=== PATIENT | male | born 1945 | race Caucasian/White ===

== ENCOUNTER 2024-09-12 09:18 | Outpatient (OUT) | payer MEDICARE, SELFPAY ==
--- NOTE | 2024-09-12 09:30 | CA_ITS ---
[facility] Test Date: 2024-09-12 Pat Name: CAROL MCPHERSON Department: Room: - Gender: Male Hand Former Helper: Clarissa Manzo : 1945 Requested By: PJ US Order Number: [id number] Reading MD: ABRIL GORDON M.D. Interpretive Statements Summary of the findings: Right leg: DANA= 1.26; TBI= 0.84. Doppler waveforms demonstrate biphasic flow at the posterior tibial and dorsalis pedis arteries. Left leg: DANA= 1.22; TBI= 0.65. Doppler waveforms demonstrate biphasic flow at the posterior tibial and dorsalis pedis arteries. Segmental pressures: Segmental pressures show calcified non-compressible left femoropopliteal artery. No other segmental disease. Pulse volume recordings: PVRs at the high thigh, below knee, and ankle levels show normal waveforms. Conclusion: Right and left ankle-brachial indices are suggestive of normal overall arterial flow at rest. Toe-brachial indices are suggestive of left sided PAD. Segmental pressures show calcified non-compressible left femoropopliteal artery. Pulse volume recordings indicate good overall resting arterial flow. The study shows evidence of PAD with normal overall arterial flow at rest. Electronically Signed On 09-12-2024 20:54:04 EDT by ABRIL GORDON M.D.
== END 2024-09-12 09:19 | disposition home or self-care (01) ==
PROVIDERS: Visit Provider Internal Medicine Interventional Cardiology
DX: I73.9 Peripheral vascular disease, unspecified (principal); I25.10 Atherosclerotic heart disease of native coronary artery without angina pectoris; I65.23 Occlusion and stenosis of bilateral carotid arteries
CPT/HCPCS: 93880; 93923

== ENCOUNTER 2024-10-05 12:10 | Outpatient (OUT) | payer MEDICARE, SELFPAY ==
--- OUTSIDE RECORDS SUMMARY | 2023-11-24 06:30 | XMS_ITS | Encounter Summary ---
Author Name [facility] Organization [facility] [place] Address [address] [place] [address] Care Team Providers Care Sign Board Erector Name Role Phone DIANNE GRIFFINCA Primary Care Provider Unavailabl e Insurance Providers: All historical and current Section Date Range: From patient's date of to the date document was created. This section includes the names of all active insurance providers for the patient. Insurance Provider Type of Coverage Plan Name Start of Policy Coverage End of Policy Coverage Group Number Member ID Insurance Provider's Telephone Number Policy Plunkett's Name Patient's Relationship to Policy Plunkett [employer] MEDIGAP PLAN N PLAN N Oct 16, 2012 MEDIGAP [id number] Fabian MCPHERSON PATIENT AARP MED SUPP MEDICARE SUPPLESELECT MEDICAL [facility] PLANN Feb 15, 2022 PLANN [id number] Fabian MCPHERSON PATIENT AARP MED SUPP MEDIGAP PLAN N PLAN N Oct 16, 2012 PLAN N [id number] Fabian MCPHERSON PATIENT MEDICARE (WNR) MEDICARE (M) PART A May 16, 2005 PART A [id number] Fabian MCPHERSONS PATIENT MEDICARE (WNR) MEDICARE (M) PART B May 16, 2005 PART B [id number] Fabian MCPHERSON PATIENT MEDICARE (WNR) MEDICARE (M) PART A May 16, 2005 PART A [id number] Fabian MCPHERSON PATIENT MEDICARE (WNR) MEDICARE (M) PART B May 16, 2005 PART B [id number] Fabian MCPHERSON PATIENT MEDICARE (WNR) MEDICARE (M) PART B May 16, 2005 PART B [id number] Fabian MCPHERSON PATIENT MEDICARE (WNR) MEDICARE (M) PART A May 16, 2005 PART A [id number] [phone] Fabian MCPHERSON PATIENT MEDICARE PART D (WNR) PRESCRIPT ION PART D Feb 15, 2010 PART D [id number] Fabian MCPHERSON PATIENT Selected Encounter This section includes the information on record at [place] for the Encounter. Date/Time Encounter Type Encounter Description Reason Provider Source Nov 24, 2023 10:30 AM OFFICE O/P EST MOD 30 MIN DERMATOLOGY ICD-10-CM Z12.83 Encounter for screening for malignant neoplasm of skin DOMINIC DENNIS Encounter Template Text not used by [place] Assessments - Encounter Diagnoses This section includes the primary and secondary diagnoses documented for the Encounter. Date/Time Primary/Secondary Diagnosis Diagnosis Name Provider Source Dec 15, 2023 09:46 AM PRIMARY Encounter for screening for malignant neoplasm of skin MIRYAM DUMONT [facility] Dec 15, 2023 09:46 AM SECONDARY Actinic keratosis [facility] Dec 15, 2023 09:46 AM SECONDARY Other melanin hyperpigmentation [facility] Dec 15, 2023 09:46 AM SECONDARY Other seborrheic keratosis [facility] Plan of Treatment: Future Appointments (+ 6 months) and Future Tests (+/- 45 days) The Plan of Treatment section includes future care activities for the patient from all [place] [facility]. This section includes future appointments and future orders which are active, pending or scheduled. Future Appointments This section includes appointments that were scheduled to occur 6 months from the date of the Encounter, up to a maximum of 20 appointments. The data comes from all [place] treatment facilities. Appointment Date/Time Appointment Type Appointme nt Facility Name Dec 07, 2023 11:00 AM AMBULATORY - PSYCHIATRY [facility] Dec 14, 2023 11:30 AM AMBULATORY - NONE [facility] Dec 14, 2023 01:30 PM AMBULATORY - SURGERY [facility] Dec 14, 2023 02:30 PM AMBULATORY - [facility]ATRY [facility] Dec 14, 2023 03:00 PM AMBULATORY - SURGERY [facility] Feb 01, 2024 11:00 AM AMBULATORY - PSYCHIATRY CL [facility] Mar 21, 2024 11:00 AM AMBULATORY - SURGERY [facility] Mar 21, 2024 11:30 AM AMBULATORY - PS[facility]CHIATRY [facility] Apr 04, 2024 01:15 PM AMBULATORY - NONE [facility] Apr 06, 2024 11:45 AM AMBULATORY - MEDICINE [facility] Apr 18, 2024 11:30 AM AMBULATORY - PSYCHIATRY [facility] Apr 25, 2024 01:00 PM AMBULATORY - NONE [facility] Social History: Smoking Status (Most current) and Tobacco Use (All prior to encounter date) This section includes the most current, and the historical, smoking and tobacco- related health factors from the [place] facility where the Encounter took place. Current Smoking Status This section includes the most current smoking, or tobacco-related health factor, from the [place] facility where the Encounter took place. Date/Time Current Smoking Status Comment Facil ity Sep 06, 2017 09:21 AM SMOKING CESSATION NO [facility] Tobacco Use History This section includes a history of the smoking, or tobacco-related health factors, that were collected on or before the date of the Encounter. The data comes from the [place] facility where the Encounter took place. Date/Time Smoking Status/Tobacco Use Comment F acility Jun 12, 2015 01:08 PM TOBACCO CURRENT USER 1/2 pack a day [facility] Apr 24, 2013 09:26 AM CURRENT TOBACCO USER [facility] Advance Directives: All historical and current Section Date Range: From patient's date of to the date document was created. This section includes ALL of a patient's completed or amended [place] Advance and Rescinded Directives. The entries below indicate that a directive exists for the patient, but an actual copy is not included with this document. The data comes from all [place] facilities. Date Advance Directives Provider Source May 03, 2019 ADVANCE DIRECTIVE DISCUSSION DEN DE LUNA [facility] Dec 28, 2012 ADVANCE DIRECTIVE CRISTI RAE [facility] Dec 28, 2012 ADVANCE DIRECTIVE DISCUSSION KYRAVIDAL MACKENZIE [facility] Dec 28, 2012 RESCINDED ADVANCE DIRECTIVE KYRADONALD MACKENZIE [facility] June 18, 2009 ADVANCE DIRECTIVE DISCUSSION FERNY PASTRANA [facility] Encounter Notes: All associated encounter notes This section contains the clinical notes associated to the Encounter. Date/Time Encounter Note(s) Provider Source Nov 24, 2023 11:17 AM NURSING NOTE: LOCAL TITLE: NURSING NOTE STANDARD TITLE: NURSING NOTE DATE OF NOTE: NOV 24, 2023@11:17 ENTRY DATE: NOV 24, 2023@11:17:58 AUTHOR: BREE YOUNG EXP COSIGNER: URGENCY: STATUS: COMPLETED Clinical Reminders Activity Suicide Screen: C-SSRS Screening [place] Suicide Severity Rating Scale (C-SSRS) screener 1. Over the past month, have you wished you were or wished you could go to sleep and not wake up? No 2. Over the past month, have you had any actual thoughts of killing yourself? No 3. Over the past month, have you been thinking about how you might do this? Response not required due to responses to other questions. 4. Over the past month, have you had these thoughts and had some intention of acting on them? Response not required due to responses to other questions. 5. Over the past month, have you started to work out or worked out the details of how to kill yourself? Response not required due to responses to other questions. 6. If yes, at any time in the past month did you intend to carry out this plan? Response not required due to responses to other questions. 7. In your lifetime, have you ever done anything, started to do anything, or prepared to do anything to end your life (for example, collected pills, obtained a gun, gave away valuables, went to the roof but didn't jump)? No 8. If YES, was this within the past 3 months? Response not required due to responses to other questions. /nayan/ BREE YOUNG REGISTERED NURSE Signed: 11/24/2023 11:18 BREE YOUNG [facility] Nov 24, 2023 10:41 AM DERMATOLOGY NOTE: LOCAL TITLE: DERMATOLOGY CLINIC NOTE STANDARD TITLE: DERMATOLOGY NOTE DATE OF NOTE: NOV 24, 2023@10:41 ENTRY DATE: NOV 24, 2023@10:41:22 AUTHOR: REYES DUMONT SA EXP COSIGNER: DOMINIC DENNIS URGENCY: STATUS: COMPLETED [facility] Note CC: Skin check LCV: 06/2023 HPI: 78 yo male presents for TBSEs. Hx of AKs, SKs, and warts. Denies any significant sunburns in the past, he usually tans. Has one lesion on the frontal scalp he noticed ~6 weeks ago and it is scaly; no lesions with bleeding, pruritis, growth, pain or secretions. REVIEW OF SYSTEMS: Denies fever/chills/night sweats Denies unintentional weight loss Denies SOB, chest pain Denies N/V, diarrhea/constipation/abd pain DERM HISTORY: He denies any personal hx or family of skin cancer. Past Medical History: Reviewed in CPRS. Medications: Reviewed in CPRS. Allergies: Reviewed in CPRS. FH: Reviewed in CPRS. SH: Reviewed in CPRS. His 04/2022 from [facility]. LABS: Reviewed in CPRS OBJECTIVE: GENERAL: A&O x3, NAD, pleasant and cooperative SKIN: A focused waist up skin exam was performed. The scalp, face, lips, eyelids, ears, neck, chest, back, trunk, b/l UE were examined and pertinent findings are as follows. Pt declines LE exam as nothing to note: - On the right frontal scalp is a 5mm gritty erythematous papule - On the trunk are multiple red uniformly pigmented papules c/w hemangiomas - On the trunk and upper extremities are numerous [id number] brown stuck- on greasy appearing sharply demarcated papules and plaques c/w seborrheic keratoses - On the trunk/arms are numerous brown uniformly pigmented macules c/w lentigos ASSESSMENT/PLAN: # Actinic keratosis x 1 on right frontal scalp - Counseled patient on precancerous nature of lesion and relationship to sun exposure - Counseled on the importance of sun protection, including daily sunscreen use and the use of photo-protective clothing including hats. - Will treat with LN2 today Cryotherapy note: Patient gave verbal consent after review of risks (blister/scar/infection/fur ther treatment), benefits and alternatives - Liquid nitrogen: for each application, 1 cycle, 10 sec - Locations: as above - Tolerated procedure well, no complications # TBSE otherwise significant for benign appearing nevi, seborrheic keratoses, lenitigines, skin tags, angiomas, and well-healed scar at sites of prior procedure - Reassured patient of benign nature of lesions - Counseled on the importance of sun protection, including daily sunscreen use and the use of photo-protective clothing including hats. - Reviewed the ABCDEs of skin lesions and signs of non-melanoma skin cancer such as rapid growth, bleeding, pain, or ulceration. Handout provided RTC 1-2 years for FBSE Reyes Dumont MD PGY2, Department of Dermatology Attending Physician, Dr. Dennis was available for consultation. /nayan/ REYES DUMONT RESIDENT Signed: 11/24/2023 10:56 /nayan/ DOMINIC DENNIS STRATEGY CONSULTANT Cosigned: 11/24/2023 12:11 REYES DUMONT [facility]
--- OUTSIDE RECORDS SUMMARY | 2023-12-07 07:00 | XMS_ITS | Encounter Summary ---
Author Name [facility] [place] [facility] [place] Address [address] [place] [address] Care Team Providers Care Biostatistics Director Name Role Phone LAURA GRIFFIN Primary Care Provider Unavailabl e Insurance Providers: [...] N PLAN N Oct 16, 2012 MEDIGAP [id number] Fabian MCPHERSON PATIENT [facility]ARP [facility] Feb 15, 2022 PLANN [id number] Fabian MCPHERSON PATIENT AARP MED SUPP MEDIGAP PLAN N PLAN N Oct 16, 2012 PLAN N [id number] Fabian MCPHERSON PATIENT MEDICARE (WNR) MEDICARE (M) PART A May 16, 2005 PART A [id number] Fabian MCPHERSONS PATIENT MEDICARE (WNR) MEDICARE (M) PART B May 16, 2005 PART B [id number] [phone] Fabian MCPHERSON PATIENT MEDICARE (WNR) MEDICARE (M) PART A May 16, 2005 PART A [id number] Fabian MCPHERSON PATIENT MEDICARE (WNR) MEDICARE (M) PART B May 16, 2005 PART B [id number] Fabian MCPHERSON PATIENT MEDICARE (WNR) MEDICARE (M) PART A May 16, 2005 PART A [id number] [phone] Fabian MCPHERSON PATIENT MEDICARE (WNR) MEDICARE (M) PART B May 16, 2005 PART B [id number] Fabian MCPHERSON PATIENT MEDICARE PART D (WNR) PRESCRIPT ION PART D Feb 15, 2010 PART D [id number] 75A Fabian MCPHERSON PATIENT Selected Encounter This section includes the information on record at [place] for the Encounter. Date/Time Encounter Type Encounter Description Reason Provider Source Dec 07, 2023 11:00 AM PSYTX W PT 30 MINUTES [facility] - IND ICD-10-CM F32.A Depression, unspecified AUDREY XIONG Encounter Template Text not used by [place] Assessments - Encounter Diagnoses This section includes the primary and secondary diagnoses documented for the Encounter. Date/Time Primary/Secondary Diagnosis Diagnosis Name Provider Source Dec 07, 2023 03:55 PM PRIMARY Depression, unspecified AUDREY XIONG [facility] Dec 07, 2023 03:55 PM SECONDARY Post-traumatic stress disorder, unspecified AUDREY XIONG [facility] Plan of Treatment: Future Appointments (+ 6 months) and Future Tests (+/- 45 days) The Plan of Treatment section includes future care activities for the patient from [facility] [place] [facility]. This section includes future appointments and future orders which are active, pending or scheduled. Future Appointments This section includes appointments that were scheduled to occur 6 months from the date of the Encounter, up to a maximum of 20 appointments. The data comes from all [place] treatment facilities. Appointment Date/Time Appointment Type Appointme nt Facility Name Dec 14, 2023 11:30 AM AMBULATORY - NONE [facility]ADI[facility] Peres [facility] Dec 14, 2023 01:30 PM AMBULATORY - SURGERY [facility] Dec 14, 2023 02:30 PM AMBULATORY - PSYCHIATRY [facility] Dec 14, 2023 03:00 PM AMBULATORY - SURGERY CAR[facility] AMARO [facility] Feb 01, 2024 11:00 AM AMBULATORY - PSYCHIATRY [facility] Mar 21, 2024 11:00 AM AMBULATORY - SURGERY [facility] Mar 21, 2024 11:30 AM AMBULATORY - PSYCHIATRY [facility] Apr 04, 2024 01:15 PM AMBULATORY - NONE [facility] Apr 06, 2024 11:45 AM AMBULATORY - MEDICINE CLEChapin BELTRAN [facility] Apr 18, 2024 11:30 AM AMBULATORY - PSYCHIATRY [facility] Apr 25, 2024 01:00 PM AMBULATORY - NONE [facility] Jun 02, 2024 11:00 AM AMBULATORY - PSYCHIATRY [facility] Jun 02, 2024 11:30 AM AMBULATORY - NONE [facility] Jun 02, 2024 11:45 AM AMBULATORY - NONE [facility] Social History: Smoking Status (Most current) and Tobacco Use (All prior to encounter date) This section includes the most current, and the historical, smoking and tobacco- related health factors from the [place] facility where the Encounter took place. Current Smoking Status This section includes the most current smoking, or tobacco-related health factor, from the [place] facility where the Encounter took place. Date/Time Current Smoking Status Comment Waqas ulloa Jun 14, 2023 11:00 AM VA-TOBACCO USER EVERY DAY [facility] Tobacco Use History This section includes a history of the smoking, or tobacco-related health factors, that were collected on or before the date of the Encounter. The data comes from the [place] facility where the Encounter took place. Date/Time Smoking Status/Tobacco Use Comment F acility Jun 14, 2023 11:00 AM VA-TOBACCO USE 30 YEARS OR MORE [facility] Jun 14, 2023 11:00 AM VA-TOBACCO USE ADVICE [facility] Jun 14, 2023 11:00 AM VA-TOBACCO USE DOCK OPERATIONS SUPERVISOR NO [facility] Jun 14, 2023 11:00 AM VA-TOBACCO USE MED NO [facility] Jun 14, 2023 11:00 AM VA-TOBACCO USER EVERY DAY [facility] May 01, 2022 11:00 AM VA-TOBACCO DOESNT USE WI 30 MIN WAKEUP [facility] May 01, 2022 11:00 AM VA-TOBACCO USE 30 YEARS OR MORE [facility] May 01, 2022 11:00 AM VA-TOBACCO USE ADVICE [facility] May 01, 2022 11:00 AM VA-TOBACCO USE DOCK OPERATIONS SUPERVISOR NO [facility] May 01, 2022 11:00 AM VA-TOBACCO USE MED NO [facility] May 01, 2022 11:00 AM VA-TOBACCO USER EVERY DAY [facility] May 09, 2021 02:30 PM VA-TOBACCO DOESNT USE WI 30 MIN WAKEUP [facility] May 09, 2021 02:30 PM VA-TOBACCO USE 30 YEARS OR MORE [facility] May 09, 2021 02:30 PM VA-TOBACCO USE ADVICE [facility] May 09, 2021 02:30 PM VA-TOBACCO USE DOCK OPERATIONS SUPERVISOR YES [facility] May 09, 2021 02:30 PM VA-TOBACCO USE MED NO [facility] May 09, 2021 02:30 PM VA-TOBACCO USER EVERY DAY [facility] Apr 02, 2020 09:00 AM VA-TOBACCO DOESNT USE WI 30 MIN WAKEUP [facility] Apr 02, 2020 09:00 AM VA-TOBACCO USE 30 YEARS OR MORE [facility] Apr 02, 2020 09:00 AM VA-TOBACCO USE ADVICE [facility] Apr 02, 2020 09:00 AM VA-TOBACCO USE DOCK OPERATIONS SUPERVISOR NO [facility] Apr 02, 2020 09:00 AM VA-TOBACCO USE MED NO [facility] Apr 02, 2020 09:00 AM VA-TOBACCO USER EVERY DAY [facility] Sep 14, 2018 10:16 AM VA-TOBACCO DOESNT USE WI 30 MIN WAKEUP [facility] Sep 14, 2018 10:16 AM VA-TOBACCO USE 30 YEARS OR MORE [facility] Sep 14, 2018 10:16 AM VA-TOBACCO USE ADVICE [facility] Sep 14, 2018 10:16 AM VA-TOBACCO USE DOCK OPERATIONS SUPERVISOR NO [facility] Sep 14, 2018 10:16 AM VA-TOBACCO USE MED NOTIFY PROVID ER [facility] Sep 14, 2018 10:16 AM VA-TOBACCO USER EVERY DAY [facility] Sep 10, 2017 03:41 PM VA-TOBACCO DOESNT USE WI 30 MIN WAKEUP [facility] Sep 10, 2017 03:41 PM VA-TOBACCO USE 30 YEARS OR MORE [facility] Sep 10, 2017 03:41 PM VA-TOBACCO USE ADVICE [facility] Sep 10, 2017 03:41 PM VA-TOBACCO USE DOCK OPERATIONS SUPERVISOR YES [facility] Sep 10, 2017 03:41 PM VA-TOBACCO USE MED NOTIFY PROVID ER [facility] Sep 10, 2017 03:41 PM VA-TOBACCO USER EVERY DAY [facility] Sep 06, 2017 09:21 AM CURRENT TOBACCO USER [facility] Sep 06, 2017 09:21 AM SMOKING CESSATION NO [facility] Sep 06, 2017 09:21 AM TOBACCO OFFERRED P T MEDS (PROVIDER) [facility] Sep 06, 2017 09:21 AM TOBACCO OFFERRED S [facility] Aug 12, 2016 10:34 AM CURRENT TOBACCO USER [facility] Jul 23, 2015 08:53 AM CURRENT TOBACCO USER [facility] Mar 27, 2014 01:28 PM CURRENT TOBACCO USER [facility] May 05, 2012 09:42 AM CURRENT TOBACCO USER [facility] Apr 23, 2011 11:03 AM CURRENT TOBACCO USER [facility] Apr 23, 2011 11:03 AM SMOKING MEDICATION INTERES T Annie MEDINA [facility] Mar 31, 2010 09:16 AM CURRENT TOBACCO USER [facility] Mar 31, 2010 09:16 AM SMOKING MEDICATION INTERES T Dr Óscar MEDINA [facility] Jun 10, 2009 02:07 PM CURRENT TOBACCO USER [facility] Jun 10, 2009 02:07 PM SMOKING MEDICATION INTERES T Dr. Prince [facility] Aug 07, 2008 09:36 AM CURRENT TOBACCO USER [facility] May 18, 2008 02:38 PM CURRENT TOBACCO USER [facility] May 18, 2008 02:38 PM TOBACCO OFFERRED P T MEDS (PROVIDER) [facility] May 18, 2008 02:38 PM TOBACCO OFFERRED S [facility] Advance Directives: All historical and current Section Date Range: From patient's date of to the date document was created. This section includes ALL of a patient's completed or amended [place] Advance and Rescinded Directives. The entries below indicate that a directive exists for the patient, but an actual copy is not included with this document. The data comes from all [place] facilities. Date Advance Directives Provider Source May 03, 2019 ADVANCE DIRECTIVE DISCUSSION DEN DE LUNA [facility] Dec 28, 2012 ADVANCE DIRECTIVE CRISTI RAE [facility] Dec 28, 2012 ADVANCE DIRECTIVE DISCUSSION KYRABRIONNAChadwick CHELSEY Varghese [facility] Dec 28, 2012 RESCINDED ADVANCE DIRECTIVE DONALD RAE WONG [place] June 18, 2009 ADVANCE DIRECTIVE DISCUSSION FERNY PASTRANA JIMMY Morro [facility] Encounter Notes: All associated encounter notes This section contains the clinical notes associated to the Encounter. Date/Time Encounter Note(s) Provider Source Dec 07, 2023 08:49 AM MENTAL HEALTH COUN SELING NOTE: LOCAL TITLE: PSYCHIATRY PSYCHOTHERAPY INDIVIDUAL NOTE (T) STANDARD TITLE: MENTAL HEALTH COUNSELING NOTE DATE OF NOTE: DEC 07, 2023@08:49 ENTRY DATE: DEC 07, 2023@08:49:44 AUTHOR: SONI XIONG COSIGNER: URGENCY: STATUS: COMPLETED Video to Home Appointment: Telehealth Disclosure: Visit conducted by synchronous telehealth. Patient verbal consent obtained. Location/emergency number confirmed. Environment surveyed and all participants identified. Virtual conference room locked. ADDITIONAL INFORMATION: E911: For emergencies, provider may initiate the call to machine stemmer by calling E911 Center [phone] [address] Veterans/ Crisis Line - Dial 988, press #1 [employer] Help Desk ([facility]): [phone] or [phone] Session Time and Duration: 11:01-11:17am DIAGNOSIS: MDD, PTSD Date Treatment Plan is due: 03/01/24 Treatment Plan Goal: I want to decrease depression and improve mood. PROGRESS TOWARDS GOAL: improving TYPES OF THERAPY: Individual METHOD OF THERAPY: supportive THE REPORTED THAT he is feeling okay, I can't complain. He acknowledged his mood improving and he is getting out and doing things. He will be going with his daughter to [place] for [employer] [place]. He stated he also watched daughter's new rescue that she has to return due it not doing well with other dogs. He denied any issues or concerns he sought to discuss. Upon assessment, he denied any current suicidal or homicidal ideation or plans. INTERVENTIONS: active and reflective listening 'S PARTICIPATION: Actively participated in discussion, Has a better understanding of therapeutic issues PLAN/HOMEWORK: depression and PTSD symptoms remains stable. No follow-up with this provider warranted. Is aware of how to schedule with this provider again if needed. MENTAL STATUS EXAM: ORIENTATION AND CONSCIOUSNESS: Alert and attentive APPEARANCE AND BEHAVIOR: Cooperative and reasonable, Grooming appropriate SPEECH: Normal rate/rhythm LANGUAGE: Intact MOOD AND AFFECT: Mood appeared euthymic, Affect is reactive PERCEPTUAL DISTURBANCE (Hallucinations, Illusions): None THOUGHT PROCESS AND ASSOCIATION: coherent, organized THOUGHT CONTENT (delusions, Obsessions, etc): No unusual thought content SUICIDAL OR VIOLENT IDEATION: None, denied MEMORY: Intact [facility] is aware to contact the clinic or the [facility] Crisis Line with concerns prior to the next scheduled visit. Clinical Reminders Activity Homelessness/Food Insecurity Screen: In the past 2 months, have you been living in stable housing that you own, rent, or stay in as part of a household? Yes - Living in stable housing. Are you worried or concerned that in the next 2 months you may NOT have stable housing that you own, rent, or stay in as part of a household? No - Not worried about housing near future [facility] reports the following: Within the past 12 months, you worried whether your food would run out before you got money to buy more. Never true Within the past 12 months, the food you bought just didn't last and you didn't have money to get more. Never true /es/ SONI XIONG CLINICAL PSYCHOLOGIST Signed: 12/07/2023 16:07 SONI XIONG [facility]
--- OUTSIDE RECORDS SUMMARY | 2023-12-14 07:30 | XMS_ITS | Encounter Summary ---
Author Name [facility] Organization [facility] Address [address] [place] [id number] Care Team Providers Care Quality Control Checker Name Role Phone LAURA GRIFFIN Primary Care [...] N PLAN N Oct 16, 2012 MEDIGAP [id number] [phone] Fabian MCPHERSON PATIENT AARP MED [facility] Feb 15, 2022 PLANN [id number] Fabian MCPHERSON PATIENT AARP MED SUPP MEDIGAP PLAN N PLAN N Oct 16, 2012 PLAN N [id number] [phone] Fabian MCPHERSON PATIENT MEDICARE (WNR) MEDICARE (M) PART A May 16, 2005 PART A [id number] Fabian MCPHERSONS PATIENT MEDICARE (WNR) MEDICARE (M) PART B May 16, 2005 PART B [id number] [phone] Fabian MCPHERSONS PATIENT MEDICARE (WNR) MEDICARE (M) PART A May 16, 2005 PART A [id number] [place] PATIENT MEDICARE (WNR) MEDICARE (M) PART B May 16, 2005 PART B [id number] [phone] Fabian MCPHERSON PATIENT MEDICARE (WNR) MEDICARE (M) PART A May 16, 2005 PART A [id number] [phone] Fabian MCPHERSON PATIENT MEDICARE (WNR) MEDICARE (M) PART B May 16, 2005 PART B [id number] [phone] Fabian MCPHERSON PATIENT MEDICARE PART D (WNR) PRESCRIPT ION PART D Feb 15, 2010 PART D [id number] [phone] Fabian MCPHERSON PATIENT Selected Encounter This section includes the information on record at [place] for the Encounter. Date/Time Encounter Type Encounter Description Reason Provider Source Dec 14, 2023 11:30 AM OFFICE O/P EST MOD 30 MIN PRIMARY CARE/MEDICINE ICD-10-CM N40.1 Benign prostatic hyperplasia with lower urinary tract symp LAURA GRIFFIN [place] Encounter Template Text not used by [facility] Assessments - Encounter Diagnoses This section includes the primary and secondary diagnoses documented for the Encounter. Date/Time Primary/Secondary Diagnosis Diagnosis Name Provider Source Dec 14, 2023 01:15 PM PRIMARY Benign prostatic hyperplasia with lower urinary tract symp LAURA GRIFFIN [facility] Dec 14, 2023 01:15 PM SECONDARY Chronic ischemic heart disease, unspecified LAURA GRIFFIN [facility] Dec 14, 2023 01:15 PM SECONDARY Encounter for immunization KRISTIE VALENTINE [facility] Dec 14, 2023 01:15 PM SECONDARY Essential (primary) hypertension LAURA GRIFFIN [facility] Dec 14, 2023 01:15 PM SECONDARY Hyperlipidemia, unspecified LAURA GRIFFIN [facility] Dec 14, 2023 01:15 PM SECONDARY Other obstructive and reflux uropathy LAURA GRIFFIN [facility] Dec 14, 2023 01:15 PM SECONDARY Tobacco use LAURA GRIFFIN [facility] Dec 14, 2023 01:15 PM SECONDARY Type 2 diabetes mellitus without complications LAURA GRIFFIN [facility] Plan of Treatment: Future Appointments (+ 6 months) and Future Tests (+/- 45 days) The Plan of Treatment section includes future care activities for the patient from all VA treatmentfacilities. This section includes future appointments and future orders which are active, pending or scheduled. Future Appointments This section includes appointments that were scheduled to occur 6 months from the date of the Encounter, up to a maximum of 20 appointments. The data comes from all [place] treatment [facility]. Appointment Date/Time Appointment Type Appointme nt Facility Name Feb 01, 2024 11:00 AM AMBULATORY - PSYCHIATRY [facility] Mar 21, 2024 11:00 AM AMBULATORY - SURGERY [facility] Mar 21, 2024 11:30 AM AMBULATORY - PSYCHIATRY [facility] Apr 04, 2024 01:15 PM AMBULATORY - NONE [facility] Apr 06, 2024 11:45 AM AMBULATORY - MEDICINE [facility] Apr 18, 2024 11:30 AM AMBULATORY - PSYCHIATRY [facility] Apr 25, 2024 01:00 PM AMBULATORY - NONE [facility] Jun 02, 2024 11:00 AM AMBULATORY - PSYCHIATRY [facility] Jun 02, 2024 11:30 AM AMBULATORY - NONE [facility] Jun 02, 2024 11:45 AM AMBULATORY - NONE [facility] Immunizations: All administered on the encounter date This section contains immunizations associated to the Encounter. Immunization Series Date Issued Administered By Site Reaction Lot Number [id number] Code Drug Upper And Bottom Lacer Hand Comment(s) Source COVID-19 (PFIZER), MRNA, LNP-S, PF, LES-SUCROSE, 30 MCG/0.3 ML (AGES 12+ YEARS) Dec 14, 20[address] [id number] [employer] [facility] [place] Social History: Smoking Status (Most current) and Tobacco Use (All prior to encounter date) This section includes the most current, and the historical, smoking and tobacco- related health factors from the [place] facility where the Encounter took place. Current Smoking Status This section includes the most current smoking, or tobacco-related health factor, from the [place] facility where the Encounter took place. Date/Time Current Smoking Status Comment Waqas ulloa Jun 14, 2023 11:00 AM VA-TOBACCO USER EVERY DAY [facility] Tobacco Use History This section includes a history of the smoking, or tobacco-related health factors, that were collected on or before the date of the Encounter. The data comes from the [place] facility where the Encounter took place. Date/Time Smoking Status/Tobacco Use Comment F acility Jun 14, 2023 11:00 AM VA-TOBACCO USE 30 YEARS OR MORE [facility] Jun 14, 2023 11:00 AM VA-TOBACCO USE ADVICE [facility] Jun 14, 2023 11:00 AM VA-TOBACCO USE UNIFORM CAP OPERATOR NO [facility] Jun 14, 2023 11:00 [...] May 01, 2022 11:00 AM VA-TOBACCO USE UNIFORM CAP OPERATOR NO [facility] May 01, 2022 11:00 [...] May 09, 2021 02:30 PM VA-TOBACCO USE UNIFORM CAP OPERATOR YES [facility] May 09, 2021 02:30 [...] Apr 02, 2020 09:00 AM VA-TOBACCO USE UNIFORM CAP OPERATOR NO [facility] Apr 02, 2020 09:00 AM VA-TOBACCO USE MED NO [facility] Apr 02, 2020 09:00 AM VA-TOBACCO USER EVERY DAY [facility] Sep 14, 2018 10:16 AM VA-TOBACCO DOESNT USE WI 30 MIN WAKEUP [facility] Sep 14, 2018 10:16 AM VA-TOBACCO USE 30 YEARS OR MORE [facility] Sep 14, 2018 10:16 AM VA-TOBACCO USE ADVICE [facility] Sep 14, 2018 10:16 AM VA-TOBACCO USE UNIFORM CAP OPERATOR NO [facility] Sep 14, 2018 10:16 AM VA-TOBACCO USE MED NOTIFY [facility] Sep 14, 2018 10:16 AM VA-TOBACCO USER EVERY DAY [facility] Sep 10, 2017 03:41 PM VA-TOBACCO DOESNT USE WI 30 MIN WAKEUP [facility] Sep 10, 2017 03:41 PM VA-TOBACCO USE 30 YEARS OR MORE [facility] Sep 10, 2017 03:41 PM VA-TOBACCO USE ADVICE [facility] Sep 10, 2017 03:41 PM VA-TOBACCO USE UNIFORM CAP OPERATOR YES [facility] Sep 10, 2017 03:41 PM VA-TOBACCO USE MED NOTIFY STAR ER [facility] Sep 10, 2017 03:41 PM VA-TOBACCO USER EVERY DAY [facility] Sep 06, 2017 09:21 AM CURRENT TOBACCO USER [facility] Sep 06, 2017 09:21 AM SMOKING CESSATION NO [facility] Sep 06, 2017 09:21 AM TOBACCO OFFERRED P T MEDS (PROVIDER) [facility] Sep 06, 2017 09:21 AM TOBACCO OFFERRED S [facility] Aug 12, 2016 10:34 AM CURRENT TOBACCO USER [facility] Jul 23, 2015 08:53 AM CURRENT TOBACCO USER [facility] Mar 27, 2014 01:28 PM CURRENT TOBACCO USER [facility] May 05, 2012 09:42 AM CURRENT TOBACCO USER [facility] Apr 23, 2011 11:03 AM CURRENT TOBACCO USER [facility] Apr 23, 2011 11:03 AM SMOKING MEDICATION INTERES T Annie [facility] Mar 31, 2010 09:16 AM CURRENT TOBACCO USER [facility] Mar 31, 2010 09:16 AM SMOKING MEDICATION INTERES T Dr Óscar [facility] Jun 10, 2009 02:07 PM CURRENT TOBACCO USER [facility] Jun 10, 2009 02:07 PM SMOKING MEDICATION INTERES T Dr. Prince [facility] Aug 07, 2008 09:36 AM CURRENT TOBACCO USER [facility] May 18, 2008 02:38 PM CURRENT TOBACCO USER [facility] May 18, 2008 02:38 PM TOBACCO OFFERRED P T MEDS (PROVIDER) [facility] May 18, 2008 02:38 PM TOBACCO OFFERRED S [facility] Advance Directives: All historical and current Section Date Range: From patient's date of to the date document was created. This section includes ALL of a patient's completed or amended VA Advance and Rescinded Directives. The entries below indicate that a directive exists for the patient, but an actual copy is not included with this document. The data comes from all [place] facilities. Date Advance Directives Provider Source May 03, 2019 ADVANCE DIRECTIVE DISCUSSION DEN DE LUNA [facility] Dec 28, 2012 ADVANCE DIRECTIVE CRISTI RAE [facility] Dec 28, 2012 ADVANCE DIRECTIVE DISCUSSION VIDAL RAE [facility] Dec 28, 2012 RESCINDED ADVANCE DIRECTIVE DONALD RAE [facility] June 18, 2009 ADVANCE DIRECTIVE DISCUSSION FERNY PASTRANA [facility] Encounter Notes: All associated encounter notes This section contains the clinical notes associated to the Encounter. Date/Time Encounter Note(s) Provider Source Dec 14, 2023 11:40 AM INTERNAL MEDICINE OUTPATIENT NOTE: LOCAL TITLE: PRIMARY CARE OUTPATIENT NOTE (T) STANDARD TITLE: INTERNAL MEDICINE OUTPATIENT NOTE DATE OF NOTE: DEC 14, 2023@11:40 ENTRY DATE: DEC 14, 2023@11:40:42 AUTHOR: LAURA GRIFFIN EXP COSIGNER: URGENCY: STATUS: COMPLETED PRIMARY CARE OUTPATIENT NOTE (T) Has ADDENDA In-person Note 78yo [place] Reason for Visit: Here for follow up visit. COmplains of a tender area in left arm and leg, will hurt when he touches it, doesn't bother him otherwise 24 Active Problems PROBLEM LAST MOD PROVIDER Benign prostatic hypertrophy with outflow 08/01/2021 LAURA GRIFFIN obstruction Difficulty cutting own toenails 12/11/2020 SARABJIT LOUISE Vitamin D deficiency 10/30/2020 LAURA GRIFFIN Abnormal findings on diagnostic imaging of lung 08/01/[address] 04/2020.Repeat in 07/2020-->findings stable. Repeat 07/2021 Pulmonary asbestosis 05/01/2020 RADIGAN,PATRICI Thoracic aorta abnormality 05/01/2020 RADIGAN,PATRICI 04/2020 Ectasia of ascending thoracic aorta. Size = 3.9 cm. Chronic insomnia 09/26/2019 ADRIAN BARBOZA Obstructive sleep apnea of adult 05/24/2019 ADRIAN BARBOZA Hypokalemia 09/14/2018 SMILEY LAMAR Diabetic neuropathy 10/11/2017 SARABJIT LOUISE Diabetes mellitus 07/23/2015 SMILEY LAMAR Depressive disorder 11/12/2022 LAURA GRIFFIN Personal History of Noncompliance with Medical 10/31/2012 SMILEY LAMAR Treatment, Presenting Hazards to Health Sensorineural Hearing Loss, Bilateral (ICD-9-CM 06/24/2011 CELSA SAMSON 389.18) Ld Teacher (current) use of Anticoagulants 02/05/2011 CHICHI ROSARIO (ICD-9-CM V58.61) Paroxysmal atrial fibrillation, Onset 01/01/2015 SMILEY LAMAR Occurred with AMI July 2010. [facility] rhythm at [facility] f[facility] Generalized Anxiety Disorder * (ICD-9-CM 300.02) 06/05/2008 BLAINE ALTMAN Coronary Artery Disease 12/05/2014 CHRISTINA TORRES 1. CABG x 3 vessels 1999 2. Stent to left main 2004 ([facility]) 3. Stent to posterior descending L in 2010 ([facility] FORREST) HTN 07/23/2015 SMILEY LAMAR Dyslipidemia 07/23/2015 SMILEY LAMAR PTSD 03/16/2019 SMILEY LAMAR Depression 05/22/2008 ANNIE DELGADO Transient Ischemic Attack 05/22/2008 ANNIE DELGADO Tobacco use (SNOMED CT [id number]) 03/16/2019 SMILEY LAMAR REVIEW OF SYSTEMS: (denies the following unless indicated otherwise): mood concerns headache fatigue/weight loss dysphagia/hoarseness chest pain dyspnea abdominal pain difficult or bloody elimination PATIENT ALLERGIES DETAILED ALLERGIES/ADVERSE REACTIONS Type: OTHER Date/Time Reactant Severity Reaction 05/18/2008 14:35 VICRYL SUTURES UNKNOWN AMRS - MEDS (REC SUCCINCT) Active and Recently Inpatient, Outpatient and Clinic Medications (including Supplies): Active Outpatient Medications Status ========= 1) AMITRIPTYLINE HCL 25MG TAB TAKE ONE TO TWO TABLET(S) ACTIVE BY MOUTH AT BEDTIME NEEDED FOR SLEEP 2) AMLODIPINE BESYLATE 5MG TAB TAKE ONE TABLET BY MOUTH ACTIVE EVERY DAY 3) APIXABAN 5MG TAB TAKE ONE TABLET BY MOUTH TWICE A DAY ACTIVE DIRECTED BY [facility] ([phone] EXT. [id number]) 4) ASPIRIN 81MG EC TAB TAKE ONE TABLET BY MOUTH EVERY ACTIVE DAY (WITH FOOD) 5) ISOSORBIDE MONONITRATE 120MG SA TAB TAKE ONE TABLET ACTIVE (S) BY MOUTH TWICE A DAY 6) LISINOPRIL 5MG TAB TAKE ONE TABLET BY MOUTH EVERY DAY ACTIVE 7) METFORMIN HCL 500MG TAB TAKE ONE TABLET BY MOUTH ACTIVE EVERY DAY FOR TYPE 2 DIABETES MELLITUS (AVOID ALCOHOL) 8) METOPROLOL TARTRATE 25MG TAB TAKE ONE TABLET BY MOUTH ACTIVE TWICE A DAY 9) MIRTAZAPINE 15MG TAB TAKE ONE TABLET BY MOUTH AT ACTIVE BEDTIME 10) NITROGLYCERIN 0.4MG SL TAB DISSOLVE ONE TABLET UNDER ACTIVE THE TONGUE NEEDED FOR ACUTE ATTACK OF ANGINA FOR CHEST PAIN; IF CHEST PAIN IS NOT IMPROVED 5 MINUTES AFTER TAKING 1 TABLET, CALL 911 DISPENSE IN ORIGINAL CONTAINER 11) PANTOPRAZOLE NA 20MG EC TAB TAKE ONE TABLET BY MOUTH ACTIVE EVERY MORNING, ON AN EMPTY STOMACH 12) ROSUVASTATIN CA 40MG TAB TAKE ONE TABLET BY MOUTH ACTIVE EVERY DAY FOR CHOLESTEROL 13) SERTRALINE HCL 50MG TAB TAKE ONE TABLET BY MOUTH ACTIVE DAILY FOR MAJOR DEPRESSIVE DISORDER 14) TAMSULOSIN HCL 0.4MG CAP TAKE ONE CAPSULE BY MOUTH AT ACTIVE BEDTIME 15) VARENICLINE 1MG TAB TAKE ONE TABLET BY MOUTH TWICE A ACTIVE DAY FOR SMOKING CESSATION START AFTER (WHITE) 0.5MG TABLETS ARE DONE Inactive Outpatient Medications Status ========= 1) RANOLAZINE 500MG SA TAB TAKE ONE TABLET BY MOUTH EVERY 12 HOURS FOR RAPID VENTRICULAR HEARTBEAT Active Non-VA Medications Status ========= 1) Non-VA DIPHENHYDRAMINE HCL 50MG CAP 50MG MOUTH AT ACTIVE BEDTIME 2) Non-VA FOLIC ACID 1MG TAB 1MG MOUTH EVERY DAY ACTIVE 3) Non-VA MELATONIN CAP/TAB ONE CAP/TAB MOUTH AT BEDTIME ACTIVE 4) Non-VA MULTIVITAMIN CAP/TAB 1 TAB/CAP MOUTH EVERY DAY ACTIVE 20 Total Medications Report Released Date/Time: Sep 09, 2023@18:01 Provider: LAURA GRIFFIN Specimen: BLOOD. [facility] [id number] Specimen Collection Date: Sep 09, 2023@13:30 Test name Result units Ref. range Site Code WBC COUNT 6.5 K/cmm 3.6 - 11.0 [541] RBC COUNT 4.93 M/cmm 4.47 - 5.83 [541] HGB 12.0 L g/dL 13.6 - 17.4 [541] HCT 36.5 L % 40.0 - 51.0 [541] MCV 73.9 L fL 80.0 - 96.0 [541] MCH 24.3 L pg 27.0 - 31.0 [541] MCHC 32.9 g/dL 31.5 - 36.5 [541] RDW 19.2 H % 11.2 - 15.8 [541] PLT 150 K/cmm 150 - 400 [541] MPV 10.5 fL 7.4 - 11.4 [541] NEUTROPHIL % 68.2 % 54.0 - 78.0 [541] LYMPHS % 17.5 L % 21.0 - 51.0 [541] MONOCYTES % 11.6 H % 4.0 - 8.0 [541] EOSINOPHIL % 2.2 % 0.0 - 3.0 [541] BASOPHIL % 0.5 % 0.0 - 3.0 [541] ABSOLUTE NEUTROPHIL COUNT 4.4 K/cmm 1.9 - 8.6 [541] ABSOLUTE LYMPHOCYTE COUNT 1.1 K/cmm 0.8 - 5.0 [541] ABSOLUTE MONOCYTE COUNT 0.8 K/cmm 0.1 - 0.9 [541] ABSOLUTE EOSINOPHIL COUNT 0.1 K/cmm 0.0 - 0.3 [541] ABSOLUTE BASOPHIL COUNT 0.0 K/cmm 0.0 - 0.3 [541] NUCLEATED RBC/100WBC 0.0 /100 WBC None Established - None Established [541] Report Released Date/Time: Sep 09, 2023@19:06 Provider: LAURA GRIFFIN Specimen: PLASMA. [facility] [id number] Specimen Collection Date: Sep 09, 2023@13:29 Test name Result units Ref. range Site Code CREATININE 0.9 mg/dL 0.7 - 1.3 [541] Eval: REFERENCE RANGES CHANGED FOR CREAT ON 11.14.23 EGFR (CALCULATED) 88.0 mL/min [541] Eval: eGFR results >60 are imprecise. Many variables affect the calculated Eval: result. Interpretation of eGFR results >60 must be monitored Eval: over time. PHYSICAL EXAM: Vital Signs: T: 98.3 F [36.8 C] (12/14/2023 11:36) P: 65 (12/14/2023 11:36) R: 16 (12/14/2023 11:36) BP: 111/64 (12/14/2023 11:36) Pain: 0 (12/14/2023 11:36) Height: 67 in [170.2 cm] (12/29/2022 08:46) Weight: 167 lb [75.75 kg] (12/14/2023 11:36) Pulse Ox: 95% (12/14/2023 11:36) General: in no acute distress Head, Ears, Eyes, Nose, and Throat: Neck: no bruit Chest/Lungs: clear throughout Cardiovascular: RRR Gastrointestinal: Extremities: no edema, wearing complression stockings ASSESSMENT/PLAN: reviewed recent labs with HTN- BP at goal, continue lisinopril and metoprolol BPH- stable with tamsulosin DM- sugars stable with metformin HLD- continue crestor COPD- stable, no inhaler use HEALTH MAINTENANCE/CLINICAL REMINDERS: request CC LDCT screening in the community MEDICATION RECONCILIATION Medication Reconciliation report reviewed and discussed with patient/caregiver. VA prescription medications, non-VA prescription medications, OTC and herbal medications reviewed: Patient/caregiver verifies that the list is complete and accurate and voices understanding. Patient/caregiver in possession of printed medication list. FOLLOW-UP: 6 months with labs I am the Staff Provider. TOTAL TIME SPENT: Spent 30 minutes in care of this patient today including review of records, exam, and placing orders. /nayan/ LAURA GRIFFIN NURSE PRACTITIONER Signed: 12/14/2023 13:16 12/15/2023 ADDENDUM STATUS: COMPLETED Clinical Reminders Activity Repeat Lung Cancer Screen (Provider): Patient continues to be a candidate for screening, there are no new clinical exclusions. No abnormal findings suspicious for lung CA present on last chest CT. Screening process reviewed with patient and patient AGREES to continue screening. Refer patient to Lung Cancer Screening Coordinator. Patient currently uses cigarettes and does not want assistance with smoking cessation at this time. /thang GRIFFIN NURSE PRACTITIONER Signed: 12/15/2023 16:30 LAURA GRIFFIN CB Dec 14, 2023 11:30 AM PRIMARY CARE NURSI JOSE RAMON NOTE: LOCAL TITLE: OUTPATIENT NURSING INTAKE NOTE (T) STANDARD TITLE: PRIMARY CARE NURSING NOTE DATE OF NOTE: DEC 14, 2023@11:30 ENTRY DATE: DEC 14, 2023@11:30:50 AUTHOR: KRISTIE VALENTINE COSIGNER: URGENCY: STATUS: COMPLETED Hemoglobin A1C Results: Collection DT Specimen Test Name Result Units Ref Range 06/07/2023 08:36 BLOOD HEMOGLOBIN A1C 6.2 H % 3.6 - 5.7 Comment: Values obtained from A1C measurements can vary. For typical A1C Comment: assays, a reported value of 7.0 could actually be between 6.72 and Comment: 7.28 if measured by a reference method. A reported value of 9.0 Comment: could actually be between 8.73 and 9.27. Ref: Comment: [email or web address] 11/05/2022 09:27 BLOOD HEMOGLOBIN A1C 5.7 % 3.6 - 5.7 Comment: Giant or Large Platelets noted on Automated CBC. Comment: Values obtained from A1C measurements can vary. For typical A1C Comment: assays, a reported value of 7.0 could actually be between 6.72 and Comment: 7.28 if measured by a reference method. A reported value of 9.0 Comment: could actually be between 8.73 and 9.27. Ref: Comment: [email or web address]://[email or web address]/[email or web address] 05/05/2022 12:55 BLOOD HEMOGLOBIN A1C 6.3 H % 3.6 - 5.7 Comment: Giant or Large Platelets noted on Automated CBC. Comment: Values obtained from A1C measurements can vary. For typical A1C Comment: assays, a reported value of 7.0 could actually be between 6.72 and Comment: 7.28 if measured by a reference method. A reported value of 9.0 Comment: could actually be between 8.73 and 9.27. Ref: Comment: [email or web address]://[email or web address] Review Allergies Allergies reviewed and updated per protocol. ALLERGIES/ADVERSE REACTIONS Type: OTHER Date/Time Reactant Severity Reaction 05/18/2008 14:35 VICRYL SUTURES UNKNOWN MEDICATION LIST REVIEW REPORT Patient states no change in documented OTC/Herbals at this visit. 1. Has the patient been feeling sad or distressed? No 2. Has the patient been having personal or family problems? No 3. Has the patient been experiencing worry and/or stress? No 4. Has the patient been having problems with drugs and/or alcohol? No 5. Crisis Line pocket card was provided to patient. No/patient declined [facility] not documented this visit. Clinical Reminders Activity Info Only: [facility] Video Connect Capable: COVID-19 Immunization: Fall Screen: Patient was asked if he/she has had any falls within the past 12 months. Patient reports one fall in past 12 months without injury. Teaching Method: Verbal discussion Education Topic: Falls Risk Level of Understanding: Good Frail/Elderly Screen: ADL Screen - Wolfe Index of [place] in Activities of Daily Living Record INDEX of ADL. Score = 18 1. Bathing: either sponge bath, tub bath or shower. Receives no assistance (gets in and out of tub by self, if tub is usual means of bathing). 2. Dressing: gets clothes from closets and drawers, including under-clothes, outer garments and using fasteners (including braces if worn). Gets clothes and dresses self without assistance. 3. Toileting: going to the toilet room for bowel and urine elimination; cleaning self after elimination and arranging clothes. (May use cane, walker, or wheelchair, and manage bedpan or commode, emptying same next morning). No assistance needed. 4. Transfer: Moves in and out of bed, or chair, without assistance (may use support object like cane or walker). 5. Continence: Controls urination and bowel movement completely by self. 6. Feeding: Feeds self without assistance. IADL Screen - Raymon Instrumental Activities of Daily Living Scale Ability to use telephone: (1 point) Operates Telephone on own initiative; looks up and dials numbers. Shopping: (1 point) Takes care of all shopping needs independently. Food preparation: (1 point) Plans, prepares, and serves adequate meals independently. Housekeeping: (1 point) Maintains house alone with occasional assistance (heavy work). Laundry: (1 point) Does personal laundry completely. Mode of transportation: (1 point) Travels independently on public transportation or drives own car. Responsibility for own medications: (1 point) Is responsible for taking medications in correct dosages at correct times. Ability to handle finances: (1 point) Manages financial matters independently (budgets, writes checks, pays rent and bills, goes to bank); collects and keeps track of income. Total score: 8 points 8 = High function, independent 0 = Low function, dependent Patient Education Documentation: LEARNING NEEDS ASSESSMENT: The patient/family/significant other reports no changes in learning needs. COVID-19 Immunization: Pfizer Monovalent (Comirnaty) Administered: COVID-19 (PFIZER), MRNA, LNP-S, PF, LES-SUCROSE, 30 MCG/0.3 ML (AGES 12+ YEARS) Date Administered: Dec 14, 2023 11:30 Upper And Bottom Lacer Hand: [employer] Lot: [id number] Exp Date: May 18, 2024 ND: [id number] Admin Route/Site: INTRAMUSCULAR/RIGHT DELTOID Dosage: 0.3mL Vaccine Information Statement(s): COVID-19 MRNA VACCINE (12+ YRS) VACCINE VIS Dec 03, 2022 (SCOTTISH) Order By: Policy Administered By: Kristie Valentine Vaccine administered without complications. /nayan/ KRISTIE VALENTINE LICENSED PRACTICAL NURSE Signed: 12/14/2023 11:46 KRISTIE VALENTINE [facility]
--- OUTSIDE RECORDS SUMMARY | 2023-12-14 09:30 | XMS_ITS | Encounter Summary ---
Author Name [facility] [place] Organization [facility] [place] Address [address] [place] [id number] Care Team Providers Care Maintenance Trainer Name Role Phone LAURA GRIFFIN Primary Care [...] N PLAN N Oct 16, 2012 MEDIGAP [id number] [phone] Fabian MCPHERSON PATIENT AARP MED [facility]PP [facility] Feb 15, 2022 PLANN [id number] Fabian MCPHERSON PATIENT AARP MED SUPP MEDIGAP PLAN N PLAN N Oct 16, 2012 PLAN N [id number] [phone] Fabian MCPHERSON PATIENT MEDICARE (WNR) MEDICARE (M) PART A May 16, 2005 PART A [id number] Fabian MCPHERSONS PATIENT MEDICARE (WNR) MEDICARE (M) PART B May 16, 2005 PART B [id number] Fabian MCPHERSONS PATIENT MEDICARE (WNR) MEDICARE (M) PART A May 16, 2005 PART A [id number] [place] PATIENT MEDICARE (WNR) MEDICARE (M) PART B May 16, 2005 PART B [id number] Fabian MCPHERSON PATIENT MEDICARE (WNR) MEDICARE (M) PART A May 16, 2005 PART A [id number] Fabian MCPHERSON PATIENT MEDICARE (WNR) MEDICARE (M) PART B May 16, 2005 PART B [id number] Fabian MCPHERSON PATIENT MEDICARE PART D (WNR) PRESCRIPT ION PART D Feb 15, 2010 PART D [id number] Fabian MCPHERSON PATIENT Selected Encounter This section includes the information on record at [place] for the Encounter. Date/Time Encounter Type Encounter Description Reason Provider Source Dec 14, 2023 01:30 PM OFFICE O/P EST MOD 30 MIN OPTOMETRY ICD-10-CM E11.9 Type 2 diabetes mellitus without complications JEOVANNY MILLER [facility] Encounter Template Text not used by [place] Assessments - Encounter Diagnoses This section includes the primary and secondary diagnoses documented for the Encounter. Date/Time Primary/Secondary Diagnosis Diagnosis Name Provider Source Dec 14, 2023 03:00 PM PRIMARY Type 2 diabetes mellitus without complications MELISSA MILLER [facility] Dec 14, 2023 03:00 PM SECONDARY Open angle with borderline findings, low risk, bilateral MELISSA MILLER [facility] Dec 14, 2023 03:00 PM SECONDARY Presbyopia MELISSA MILLER [facility] Dec 14, 2023 03:00 PM SECONDARY Presence of intraocular lens MELISSA MILLER [facility] Dec 14, 2023 03:00 PM SECONDARY Regular astigmatism, bilateral MELISSA MILLER [facility] Plan of Treatment: Future Appointments (+ 6 months) and Future Tests (+/- 45 days) The Plan of Treatment section includes future care activities for the patient from all [place] treatmentfacilities. This section includes future appointments and future orders which are active, pending or scheduled. Future Appointments This section includes appointments that were scheduled to occur 6 months from the date of the Encounter, up to a maximum of 20 appointments. The data comes from all [place] treatment facilities. Appointment Date/Time Appointment Type Appointme nt Facility Name Feb 01, 2024 11:00 AM AMBULATORY - PS[facility]IATRY [facility] Mar 21, 2024 11:00 AM AMBULATORY - SURGERY [facility] Mar 21, 2024 11:30 AM AMBULATORY - PSYCHIATRY [facility] Apr 04, 2024 01:15 PM AMBULATORY - NONE [facility] Apr 06, 2024 11:45 AM [facility] - MED[facility]INE [facility] Apr 18, 2024 11:30 AM AMBULATORY - PSYCHIATRY CL [facility] Apr 25, 2024 01:00 PM AMBULATORY - NONE [facility] Jun 02, 2024 11:00 AM AMBULATORY - PSYCHIATRY CL [facility] Jun 02, 2024 11:30 AM AMBULATORY - NONE [facility] Jun 02, 2024 11:45 AM AMBULATORY - NONE [facility] Social History: Smoking Status (Most current) and Tobacco Use (All prior to encounter date) This section includes the most current, and the historical, smoking and tobacco- related health factors from the [place] facility where the Encounter took place. Current Smoking Status This section includes the most current smoking, or tobacco-related health factor, from the [place] facility where the Encounter took place. Date/Time Current Smoking Status Comment Waqas ulloa Jun 14, 2023 11:00 AM VA-TOBACCO USER EVERY DAY [facility] Tobacco Use History This section includes a history of the smoking, or tobacco-related health factors, that were collected on or before the date of the Encounter. The data comes from the [place] facility where the Encounter took place. Date/Time Smoking Status/Tobacco Use Comment F acility Jun 14, 2023 11:00 AM VA-TOBACCO USE 30 YEARS OR MORE [facility] Jun 14, 2023 11:00 AM VA-TOBACCO USE ADVICE [facility] Jun 14, 2023 11:00 AM VA-TOBACCO USE DOG RAISER NO [facility] Jun 14, 2023 11:00 [...] May 01, 2022 11:00 AM VA-TOBACCO USE DOG RAISER NO [facility] May 01, 2022 11:00 [...] May 09, 2021 02:30 PM VA-TOBACCO USE DOG RAISER YES [facility] May 09, 2021 02:30 [...] Apr 02, 2020 09:00 AM VA-TOBACCO USE DOG RAISER NO [facility] Apr 02, 2020 09:00 [...] Sep 14, 2018 10:16 AM VA-TOBACCO USE DOG RAISER NO [facility] Sep 14, 2018 10:16 [...] Sep 10, 2017 03:41 PM VA-TOBACCO USE DOG RAISER YES [facility] Sep 10, 2017 03:41 PM VA-TOBACCO USE MED NOTIFY PROVID ER [facility] Sep 10, 2017 03:41 PM VA-TOBACCO USER EVERY DAY [facility] Sep 06, 2017 09:21 AM CURRENT TOBACCO USER [facility] Sep 06, 2017 09:21 AM SMOKING CESSATION NO [facility] Sep 06, 2017 09:21 AM TOBACCO OFFERRED P T MEDS (PROVIDER) [facility] Sep 06, 2017 09:21 AM TOBACCO OFFERRED S [facility] Aug 12, 2016 10:34 AM CURRENT TOBACCO USER [facility] Jul 23, 2015 08:53 AM CURRENT TOBACCO USER [facility] Mar 27, 2014 01:28 PM CURRENT TOBACCO USER [facility] May 05, 2012 09:42 AM CURRENT TOBACCO USER [facility] Apr 23, 2011 11:03 AM CURRENT TOBACCO USER [facility] Apr 23, 2011 11:03 AM SMOKING MEDICATION INTERES T Annie MEDINA [facility] Mar 31, 2010 09:16 AM CURRENT TOBACCO USER [facility] Mar 31, 2010 09:16 AM SMOKING MEDICATION INTERES T Dr Óscar [facility] Jun 10, 2009 02:07 PM CURRENT TOBACCO USER [facility] Jun 10, 2009 02:07 PM SMOKING MEDICATION INTERES T Dr. Prince [facility] Aug 07, 2008 09:36 AM CURRENT TOBACCO USER [facility] May 18, 2008 02:38 PM CURRENT TOBACCO USER [facility] May 18, 2008 02:38 PM TOBACCO OFFERRED P T MEDS (PROVIDER) [facility] May 18, 2008 02:38 PM TOBACCO OFFERRED S [facility]MOKING [facility] Advance Directives: All historical and current Section Date Range: From patient's date of to the date document was created. This section includes ALL of a patient's completed or amended [place] Advance and Rescinded Directives. The entries below indicate that a directive exists for the patient, but an actual copy is not included with this document. The data comes from all [place] facilities. Date Advance Directives Provider Source May 03, 2019 ADVANCE DIRECTIVE DISCUSSION DEN DE LUNA [facility] Dec 28, 2012 ADVANCE DIRECTIVE CRISTI RAE [facility] Dec 28, 2012 ADVANCE DIRECTIVE DISCUSSION KYRABRIONNAChadwick CHELSEY Varghese [facility] Dec 28, 2012 RESCINDED ADVANCE DIRECTIVE DONALD RAE WONG Halima MEDINA [facility] June 18, 2009 ADVANCE DIRECTIVE DISCUSSION ZEINAFERNY [facility] Encounter Notes: All associated encounter notes This section contains the clinical notes associated to the Encounter. Date/Time Encounter Note(s) Provider Source Dec 14, 2023 01:54 PM OPHTHALMOLOGY CONS ULT: LOCAL TITLE: OPHTHALMIC IMAGING NOTE (C) STANDARD TITLE: OPHTHALMOLOGY CONSULT DATE OF NOTE: DEC 14, 2023@13:54 ENTRY DATE: DEC 14, 2023@13:54:59 AUTHOR: ENRIKE LEARY EXP COSIGNER: MEILSSA MILLER URGENCY: STATUS: COMPLETED Attached are Ophthalmic images. /nayan/ ENRIKE LEARY OPTOMETRY EQUIPMENT COORDINATOR Signed: 12/14/2023 13:55 /nayan/ MELISSA MILLER [employer] STEWARDESS Cosigned: 12/14/2023 14:08 ENRIKE LEARY [facility] Dec 14, 2023 01:47 PM OPTOMETRY NOTE: LOCAL TITLE: OPTOMETRY EQUIPMENT COORDINATOR NOTE STANDARD TITLE: OPTOMETRY NOTE DATE OF NOTE: DEC 14, 2023@13:47 ENTRY DATE: DEC 14, 2023@13:48:46 AUTHOR: ENRIKE LEARY EXP COSIGNER: MELISSA MILLER URGENCY: STATUS: COMPLETED 78 Year old vet here today KOURTNEY ad OCT Last Eye exam: Dec 15 2022 ONEAL/OPT Dr Miller Chief Complaint: patient voices no visual complaints or concerns today Ocular History: (+) Pseudophakia OU (+) DM s DR OU (+) Moderate CDs OU LIOP: OD:17 OS:15 LCD: OD:0.70 OS:0.70 Ocular Medications: None Family Ocular History: maternal Aunt glaucoma (+) Medical History: Benign prostatic hypertrophy with outflow 08/01/2021 Difficulty cutting own toenails 12/11/2020 Vitamin D deficiency 10/30/2020 Abnormal findings on diagnostic imaging of lung 08/01/2020 Pulmonary asbestosis 05/01/2020 Thoracic aorta abnormality 05/01/2020 Chronic insomnia 09/26/2019 Obstructive sleep apnea of adult 05/24/2019 Hypokalemia 09/14/2018 Diabetic neuropathy 10/11/2017 Diabetes mellitus 07/23/2015 Depressive disorder 11/12/2022 Personal History of Noncompliance with Medical 10/31/2012 Sensorineural Hearing Loss, Bilateral (ICD-9-CM 06/24/2011 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 02/05/2011 Paroxysmal atrial fibrillation, Onset 01/01/2015 Generalized Anxiety Disorder * (ICD-9-CM 300.02) 06/05/2008 Coronary Artery Disease 12/05/ HTN 07/23/2015 Dyslipidemia 07/23/2015 PTSD 03/16/2019 Depression 05/22/2008 Transient Ischemic Attack 05/22/2008 Tobacco use03/16/2019 Medications: AMITRIPTYLINE HCL 25MG TAB TAKE ONE TO TWO TABLET(S) ACTIVE AMLODIPINE BESYLATE 5MG TAB TAKE ONE TABLET BY MOUTH ACTIVE APIXABAN 5MG TAB TAKE ONE TABLET BY MOUTH TWICE A DAY ACTIVE ASPIRIN 81MG EC TAB TAKE ONE TABLET BY MOUTH EVERY ACTIVE ISOSORBIDE MONONITRATE 120MG SA TAB TAKE ONE TABLET ACTIVE LISINOPRIL 5MG TAB TAKE ONE TABLET BY MOUTH EVERY DAY ACTIVE METFORMIN HCL 500MG TAB TAKE ONE TABLET BY MOUTH ACTIVE METOPROLOL TARTRATE 25MG TAB TAKE ONE TABLET BY MOUTH ACTIVE MIRTAZAPINE 15MG TAB TAKE ONE TABLET BY MOUTH AT ACTIVE NITROGLYCERIN 0.4MG SL TAB DISSOLVE ONE TABLET UNDER ACTIVE PANTOPRAZOLE NA 20MG EC TAB TAKE ONE TABLET BY MOUTH ACTIVE ROSUVASTATIN [place] 40MG TAB TAKE ONE TABLET BY MOUTH ACTIVE SERTRALINE HCL 50MG TAB TAKE ONE TABLET BY MOUTH ACTIVE TAMSULOSIN HCL 0.4MG CAP TAKE ONE CAPSULE BY MOUTH AT ACTIVE VARENICLINE 1MG TAB TAKE ONE TABLET BY MOUTH TWICE A ACTIVE Non-VA DIPHENHYDRAMINE HCL 50MG CAP 50MG MOUTH AT ACTIVE Non-VA FOLIC ACID 1MG TAB 1MG MOUTH EVERY DAY ACTIVE Non-VA MELATONIN CAP/TAB ONE CAP/TAB MOUTH AT BEDTIME ACTIVE Non-VA MULTIVITAMIN CAP/TAB 1 TAB/CAP MOUTH EVERY DAY ACTIVE Allergies: patient states KNDA Current Rx: OD: +0.50 -0.50 x102 OS: -0.50 -0.50 x76 ADD: +2.75 VA: sRx OD: 20/30 PH: NI OS: 20/25 PH: NI EOMs: FULL OU PUPILS: ERRL -APD OU CF: FULL OU /es/ ENRIKE LEARY OPTOMETRY EQUIPMENT COORDINATOR Signed: 12/14/2023 13:49 /nayan/ MELISSA MILLER [employer] STEWARD[employer] Cosigned: 12/14/2023 13:52 ENRIKE LEARY [facility] Dec 14, 2023 01:39 PM OPTOMETRY OUTPATIE NT NOTE: LOCAL TITLE: OPTOMETRY OUTPATIENT CLINIC NOTE (T) STANDARD TITLE: OPTOMETRY OUTPATIENT NOTE DATE OF NOTE: DEC 14, 2023@13:39 ENTRY DATE: DEC 14, 2023@13:39:22 AUTHOR: MELISSA MILLER EXP COSIGNER: URGENCY: STATUS: COMPLETED 78 yowm here today for KOURTNEY and OCT Last Eye exam: Dec 15, 2022 ONEAL/OPT Dr Miller Chief Complaint: patient voices no visual complaints or concerns today Ocular History: (+) Pseudophakia OU (+) DM s DR OU (+) Moderate CDs OU LIOP: OD:17 OS:15 LCD: OD:0.70 OS:0.70 Ocular Medications: None Family Ocular History: maternal Aunt glaucoma (+) Medical History: Benign prostatic hypertrophy with outflow 08/01/2021 Difficulty cutting own toenails 12/11/2020 Vitamin D deficiency 10/30/2020 Abnormal findings on diagnostic imaging of lung 08/01/2020 Pulmonary asbestosis 05/01/2020 Thoracic aorta abnormality 05/01/2020 Chronic insomnia 09/26/2019 Obstructive sleep apnea of adult 05/24/2019 Hypokalemia 09/14/2018 Diabetic neuropathy 10/11/2017 Diabetes mellitus 07/23/2015 Depressive disorder 11/12/2022 Personal History of Noncompliance with Medical 10/31/2012 Sensorineural Hearing Loss, Bilateral (ICD-9-CM 06/24/2011 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 02/05/2011 Paroxysmal atrial fibrillation, Onset 01/01/2015 Generalized Anxiety Disorder * (ICD-9-CM 300.02) 06/05/2008 Coronary Artery Disease 12/05/ HTN 07/23/2015 Dyslipidemia 07/23/2015 PTSD 03/16/2019 Depression 05/22/2008 Transient Ischemic Attack 05/22/2008 Tobacco use03/16/2019 Medications: AMITRIPTYLINE HCL 25MG TAB TAKE ONE TO TWO TABLET(S) ACTIVE AMLODIPINE BESYLATE 5MG TAB TAKE ONE TABLET BY MOUTH ACTIVE APIXABAN 5MG TAB TAKE ONE TABLET BY MOUTH TWICE A DAY ACTIVE ASPIRIN 81MG EC TAB TAKE ONE TABLET BY MOUTH EVERY ACTIVE ISOSORBIDE MONONITRATE 120MG SA TAB TAKE ONE TABLET ACTIVE LISINOPRIL 5MG TAB TAKE ONE TABLET BY MOUTH EVERY DAY ACTIVE METFORMIN HCL 500MG TAB TAKE ONE TABLET BY MOUTH ACTIVE METOPROLOL TARTRATE 25MG TAB TAKE ONE TABLET BY MOUTH ACTIVE MIRTAZAPINE 15MG TAB TAKE ONE TABLET BY MOUTH AT ACTIVE NITROGLYCERIN 0.4MG SL TAB DISSOLVE ONE TABLET UNDER ACTIVE PANTOPRAZOLE NA 20MG EC TAB TAKE ONE TABLET BY MOUTH ACTIVE ROSUVASTATIN [place] 40MG TAB TAKE ONE TABLET BY MOUTH ACTIVE SERTRALINE HCL 50MG TAB TAKE ONE TABLET BY MOUTH ACTIVE TAMSULOSIN HCL 0.4MG CAP TAKE ONE CAPSULE BY MOUTH AT ACTIVE VARENICLINE 1MG TAB TAKE ONE TABLET BY MOUTH TWICE A ACTIVE Non-VA DIPHENHYDRAMINE HCL 50MG CAP 50MG MOUTH AT ACTIVE Non-VA FOLIC ACID 1MG TAB 1MG MOUTH EVERY DAY ACTIVE Non-VA MELATONIN CAP/TAB ONE CAP/TAB MOUTH AT BEDTIME ACTIVE Non-VA MULTIVITAMIN CAP/TAB 1 TAB/CAP MOUTH EVERY DAY ACTIVE Allergies: patient states NKA Current Rx: OD: +0.50 -0.50 x102 OS: -0.50 -0.50 x076 ADD: +2.75 VA: cRx OD: 20/30 PH: NI OS: 20/25 PH: NI EOMs: FULL OU PUPILS: ERRL -APD OU CF: FULL OU Refraction: OD: +0.25 -0.25 x100 VA: 20/20-1 OS: -0.25 -0.50 x074 VA: 20/20 ADD: +2.75 Slit Lamp Exam: Lids and lashes: clear OU Conjunctiva: clear OU Cornea: clear OU Anterior chamber: d/q OU Angles: 4 n/t OU Iris: clear, (-) simon OU Lens: OD: PCIOL OS: PCIOL Obtained informed consent from patient for use of DPA's, educated patient about side effects. 1 gt. Fluress OU and 1 gt. Tropicamide OU @ 2:02 PM Tonometry (A): @ 2:02 PM OD/OS: 16/15 (12/14/23) DFE: C/D: OD: 0.70/0.70 OS: 0.70/0.70 Posterior pole: clear OU, no CSME OU Vessels: normal course/caliber OU Vitreous: clear OU Periphery: (-) holes/tears 360 OU OCT: V CD ratio; Avg RNFL thickness OD: unreliable; RPE hypertrophy OS: 0.65; 83; RPE hypertrophy Assessment/Plan: 1. Regular astigmatism c presb OU. Rx released to [facility]. 2. Pseudophakia OU - stable. Monitor. 3. 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 Monitor 1 year c KOURTNEY and OCT watching for any changes. 4. DM s DR OU, no CSME OU; p/e on need to control BS/BP/lipids. Monitor 1 year c KOURTNEY; RTC STAT c any changes in vision. RTC: 1 year c KOURTNEY and OCT /es/ MELISSA MILLER [employer] STEWARDESS Signed: 12/14/2023 15:00 MELISSA MILLER OC
--- OUTSIDE RECORDS SUMMARY | 2023-12-14 10:30 | XMS_ITS | Encounter Summary ---
Author Name [facility] [facility] [place] Organization [facility] of [facility] ([place] Address [address] [place] [address] Care Team Providers Care Storage Wharfage Clerk Name Role Phone LAURA GRIFFIN Primary Care [...] N PLAN N Oct 16, 2012 MEDIGAP [id number] [phone] Fabian MCPHERSON PATIENT AARP MED SUPP [facility] Feb 15, 2022 PLANN [id number] Fabian MCPHERSON PATIENT AARP MED SUPP MEDIGAP PLAN N PLAN N Oct 16, 2012 PLAN N [id number] Fabian MCPHERSON PATIENT MEDICARE (WNR) MEDICARE (M) PART A May 16, 2005 PART A [id number] Fabian MCPHERSONS PATIENT MEDICARE (WNR) MEDICARE (M) PART B May 16, 2005 PART B [id number] Fabian MCPHERSONS PATIENT MEDICARE (WNR) MEDICARE (M) PART A May 16, 2005 PART A [id number] [place] PATIENT MEDICARE (WNR) MEDICARE (M) PART B May 16, 2005 PART B [id number] [phone] Fabian MCPHERSON PATIENT MEDICARE (WNR) MEDICARE (M) PART A May 16, 2005 PART A [id number] Fabian MCPHERSON PATIENT MEDICARE (WNR) MEDICARE (M) PART B May 16, 2005 PART B [id number] Fabian MCPHERSON PATIENT MEDICARE PART D (WNR) PRESCRIPT ION PART D Feb 15, 2010 PART D [id number] [phone] Fabian MCPHERSON PATIENT Selected Encounter This section includes the information on record at [place] for the Encounter. Date/Time Encounter Type Encounter Description Reason Provider Source Dec 14, 2023 02:30 PM MTMS BY EREN BERG [facility] - IND ICD-10-CM F43.10 Post-traumatic stress disorder, unspecified REGAN MEREDITH [place] Encounter Template Text not used by [place] Assessments - Encounter Diagnoses This section includes the primary and secondary diagnoses documented for the Encounter. Date/Time Primary/Secondary Diagnosis Diagnosis Name Provider Source Dec 15, 2023 04:34 PM PRIMARY Post-traumatic stress disorder, unspecified REGAN MEREDITH [facility] Dec 15, 2023 04:34 PM SECONDARY Depression, unspecified REGAN MEREDITH [facility] Dec 15, 2023 04:34 PM SECONDARY Tobacco use REGAN MEREDITH [facility] Plan of Treatment: Future Appointments (+ 6 months) and Future Tests (+/- 45 days) The Plan of Treatment section includes future care activities for the patient from all [place] treatmentfacilities. This section includes future appointments and future orders which are active, pending or scheduled. Future Appointments This section includes appointments that were scheduled to occur 6 months from the date of the Encounter, up to a maximum of 20 appointments. The data comes from all [place] treatment facilities. Appointment Date/Time Appointment Type Appointme nt Facility Name Feb 01, 2024 11:00 AM AMBULATORY - PSYCHIATRY [facility] Mar 21, 2024 11:00 AM AMBULATORY - SURGERY [facility] Mar 21, 2024 11:30 AM AMBULATORY - PSYCHIATRY [facility] Apr 04, 2024 01:15 PM AMBULATORY - NONE [facility] Apr 06, 2024 11:45 AM AMBULATORY - MEDICINE [facility] Apr 18, 2024 11:30 AM AMBULATORY - PSYCHIATRY [facility] Apr 25, 2024 01:00 PM AMBULATORY - NONE [facility] Jun 02, 2024 11:00 AM AMBULATORY - PSYCHIATRY [facility] Jun 02, 2024 11:30 AM AM[facility]ORY - NONE [facility] Jun 02, 2024 11:45 AM AMBULATORY - NONE [facility] Social History: Smoking Status (Most current) and Tobacco Use (All prior to encounter date) This section includes the most current, and the historical, smoking and tobacco- related health factors from the [place] facility where the Encounter took place. Current Smoking Status This section includes the most current smoking, or tobacco-related health factor, from the [place] facility where the Encounter took place. Date/Time Current Smoking Status Comment Facil ity Jun 14, 2023 11:00 AM VA-TOBACCO DOESNT USE WI 30 MIN WAKEUP [facility] Tobacco Use History This section includes a history of the smoking, or tobacco-related health factors, that were collected on or before the date of the Encounter. The data comes from the [place] facility where the Encounter took place. Date/Time Smoking Status/Tobacco Use Comment F acility Jun 14, 2023 11:00 AM VA-TOBACCO USE 30 YEARS OR MORE [facility] Jun 14, 2023 11:00 AM VA-TOBACCO USE ADVICE [facility] Jun 14, 2023 11:00 AM VA-TOBACCO USE STITCHER STANDARD MACHINE NO [facility] Jun 14, 2023 11:00 [...] May 01, 2022 11:00 AM VA-TOBACCO USE STITCHER STANDARD MACHINE NO [facility] May 01, 2022 11:00 [...] May 09, 2021 02:30 PM VA-TOBACCO USE STITCHER STANDARD MACHINE YES [facility] May 09, 2021 02:30 [...] Apr 02, 2020 09:00 AM VA-TOBACCO USE STITCHER STANDARD MACHINE NO [facility] Apr 02, 2020 09:00 [...] Sep 14, 2018 10:16 AM VA-TOBACCO USE STITCHER STANDARD MACHINE NO [facility] Sep 14, 2018 10:16 [...] Sep 10, 2017 03:41 PM VA-TOBACCO USE STITCHER STANDARD MACHINE YES [facility] Sep 10, 2017 03:41 PM VA-TOBACCO USE MED NOTIFY PROVID ER [facility] Sep 10, 2017 03:41 PM VA-TOBACCO USER EVERY DAY [facility] Sep 06, 2017 09:21 AM CURRENT TOBACCO USER [facility] Sep 06, 2017 09:21 AM SMOKING CESSATION NO [facility] Sep 06, 2017 09:21 AM TOBACCO OFFERRED P T MEDS (PROVIDER) [facility] Sep 06, 2017 09:21 AM TOBACCO OFFERRED S [facility] Aug 12, 2016 10:34 AM CURRENT TOBACCO USER [facility] Jul 23, 2015 08:53 AM CURRENT TOBACCO USER [facility] Mar 27, 2014 01:28 PM CURRENT TOBACCO USER [facility] May 05, 2012 09:42 AM CURRENT TOBACCO USER [facility] Apr 23, 2011 11:03 AM CURRENT TOBACCO USER [facility] Apr 23, 2011 11:03 AM SMOKING MEDICATION INTERES T Annie [facility] Mar 31, 2010 09:16 AM CURRENT TOBACCO USER [facility] Mar 31, 2010 09:16 AM SMOKING MEDICATION INTERES T Dr Óscar [facility] Jun 10, 2009 02:07 PM CURRENT TOBACCO USER [facility] Jun 10, 2009 02:07 PM SMOKING MEDICATION INTERES T Dr. Prince [facility] Aug 07, 2008 09:36 AM CURRENT TOBACCO USER [facility] May 18, 2008 02:38 PM CURRENT TOBACCO USER [facility] May 18, 2008 02:38 PM TOBACCO OFFERRED P T MEDS (PROVIDER) [facility] May 18, 2008 02:38 PM TOBACCO OFFERRED S [facility] Advance Directives: All historical and current Section Date Range: From patient's date of to the date document was created. This section includes ALL of a patient's completed or amended [place] Advance and Rescinded Directives. The entries below indicate that a directive exists for the patient, but an actual copy is not included with this document. The data comes from all [place] facilities. Date Advance Directives Provider Source May 03, 2019 ADVANCE DIRECTIVE DISCUSSION DEN DE LUNA [facility] Dec 28, 2012 ADVANCE DIRECTIVE CRISTI [facility] Dec 28, 2012 ADVANCE DIRECTIVE DISCUSSION VIDAL [facility] Dec 28, 2012 RESCINDED ADVANCE DIRECTIVE DONALD [facility] June 18, 2009 ADVANCE DIRECTIVE DISCUSSION FERNY PASTRANA [facility] Encounter Notes: All associated encounter notes This section contains the clinical notes associated to the Encounter. Date/Time Encounter Note(s) Provider Source Dec 14, 2023 02:26 PM PSYCHIATRY NOTE: LOCAL TITLE: [facility] PSYCHIATRY NOTE (T) STANDARD TITLE: PSYCHIATRY NOTE DATE OF NOTE: DEC 14, 2023@14:26 ENTRY DATE: DEC 14, 2023@14:26:53 AUTHOR: SAPNA MEREDITHIGNER: URGENCY: STATUS: COMPLETED PSYCHIATRIC EVALUATION NOTE Time in: 1430 Time out: 1500 Time spent: 30 min TS is a 78yom w/ a MH h/o PTSD and MDD, tobacco use DO. Chart and available information reviewed. Video to Home Appointment: Patient has consented to receive this care by telehealth and confirmed his current location and phone number. Emergency contact number confirmed. - Physical location of patient during this video to home appointment: home - Phone number of patient during this video to home appointment: as listed - Phone number of other local contacts including first response number if not 911 and known: daughter, as listed e-contact - Identify other participants that may be auditorily participating in video to home appointment: denied CC: Feeling okay HPI: Vlad was last spoken with on 10/01/23 where he reported medication adherence and tolerability with this use. Finding medication with durable perceptions of benefit, stating that he had been doing okay . His summer had been well. He and his daughter are planning to visit the [place] [employer] in [place] for day, which they are looking forward to. Mood felt to be okay overall, feels medication is supportive in this area. Denied much for residuals of concern on prompted review. I'm pretty happy with the way things are going right now . His sleep was well, outside of [place] having to go outside periodically. I'm doing well otherwise . Continues with sleep regimen, no change to agents and we reviewed ongoing considerations on TCA need, which he will contemplate for trial hold at his comfort and timing. Appetite and hydration are well. Will monitor per his stated preference. A telephone/televideo session was done as scheduled, which he was amenable to. Discussed his travels with daughter, and finding [place] relatively enjoyable, and the [place] [employer] specifically. They stayed for three days, although there wasn't a whole lot to do beyond the library or for entertainment. They continues to plan their next travel for [facility] on , and this should offer more options for enjoyment. Feeling okay still.. I think with sertraline, it's fine, it's doing what it's supposed to.. yes, I am still having some lack of drive . Feels this is more closely related to the reflection of the day, the mood of the day . Denied days on end with motivation deficit. Feeling that he is prioritizing at times, and that his sleep, influenced by his ageing dog, plays a role in this further. He maintains cleanliness around the home well, and paying for yard and cleaning services. Sleep reported as suboptimal at times, it could be better than it has been . He knows in part that his dog contributes to this. Also seems to be that he is getting up at 0300 with the dog and is unable to fall back asleep. Sleep limited to 4-5 hours. Occasionally napping. I've noticed, but it's probably my age, that when we get up, I have to be careful that I don't fall.. after I take a few steps I'm okay, but I'm kind of shaky . Denied orthostasis; it's instability . Denied falls. He has a walker from previously. Stated interest in an adjustable cane for convenience, which will be requested. Daughter wants him to move to [place], although he doesn't feel like he has to yet. I still drive, I am doing fairly well independently . He continues to work on going through 's possessions and storage. Let's leave things where they are right now . May have to consider putting [place] down, depending on progression. Will monitor without change. Denied SI/HI. SUBSTANCE USE HX: Nicotine- baseline between 0.25-0.5ppd. NRT failed previously. Bupropion trial w/ plateau of effect and inability to facilitate goal. Pending varenicline retrial at his comfort/timing. Cited increase in use to 1ppd. Will continue to encourage cessation; remaining contemplative for quit attempt. Alcohol- denied Illicit- denied PSYCHIATRIC MEDICATION HISTORY: According to CPRS and [employer] remote data of [place] outpatient Rx, the pt has a h/o HYDROXYZINE (2008); MIRTAZAPINE (2019); PAROXETINE (non-VA< 2008-: that probably helped me be a little bit more mellow about things, I wasn't a basket case, I could take things better . Does not feel this would be presently necessary d/t stability for this indication. Has been educated on serotonergic medication use for broad PTSD symptoms and sleep dysregulation as a component of this.) TRAZODONE (2008-11: BALAJI: frequent bowel movements reported). VENLAFAXINE (2012: poor recall). Non-VA melatonin use noted. VARENICLINE (stopped d/t recall). ALLERGIES/ADVERSE REACTIONS Type: OTHER Date/Time Reactant Severity Reaction 05/18/2008 14:35 VICRYL SUTURES UNKNOWN Active Outpatient Medications Status 1) AMITRIPTYLINE HCL 25MG TAB TAKE ONE TO TWO TABLET(S) ACTIVE BY MOUTH AT BEDTIME NEEDED FOR SLEEP 2) AMLODIPINE BESYLATE 5MG TAB TAKE ONE TABLET BY MOUTH ACTIVE (S) EVERY DAY 3) APIXABAN 5MG TAB TAKE ONE TABLET BY MOUTH TWICE A DAY ACTIVE (S) DIRECTED BY THE [facility] ([phone] EXT. [phone]) 4) ASPIRIN 81MG EC TAB TAKE ONE TABLET BY MOUTH EVERY ACTIVE (S) DAY (WITH FOOD) 5) ISOSORBIDE MONONITRATE 120MG SA TAB TAKE ONE TABLET ACTIVE (S) BY MOUTH TWICE A DAY 6) LISINOPRIL 5MG TAB TAKE ONE TABLET BY MOUTH EVERY DAY ACTIVE (S) 7) METFORMIN HCL 500MG TAB TAKE ONE TABLET BY MOUTH ACTIVE (S) EVERY DAY FOR TYPE 2 DIABETES MELLITUS (AVOID ALCOHOL) 8) METOPROLOL TARTRATE 25MG TAB TAKE ONE TABLET BY MOUTH ACTIVE (S) TWICE A DAY 9) MIRTAZAPINE 15MG TAB TAKE ONE TABLET BY MOUTH AT ACTIVE (S) BEDTIME 10) NITROGLYCERIN 0.4MG SL TAB DISSOLVE ONE TABLET UNDER ACTIVE (S) THE TONGUE NEEDED FOR ACUTE ATTACK OF ANGINA FOR CHEST PAIN; IF CHEST PAIN IS NOT IMPROVED 5 MINUTES AFTER TAKING 1 TABLET, CALL 911 DISPENSE IN ORIGINAL CONTAINER 11) PANTOPRAZOLE NA 20MG EC TAB TAKE ONE TABLET BY MOUTH ACTIVE (S) EVERY MORNING, ON AN EMPTY STOMACH 12) RANOLAZINE 500MG SA TAB TAKE ONE TABLET BY MOUTH ACTIVE (S) EVERY 12 HOURS FOR RAPID VENTRICULAR HEARTBEAT 13) ROSUVASTATIN CA 40MG TAB TAKE ONE TABLET BY MOUTH ACTIVE (S) EVERY DAY FOR CHOLESTEROL 14) SERTRALINE HCL 50MG TAB TAKE ONE TABLET BY MOUTH ACTIVE (S) DAILY FOR MAJOR DEPRESSIVE DISORDER 15) TAMSULOSIN HCL 0.4MG CAP TAKE ONE CAPSULE BY MOUTH AT ACTIVE BEDTIME 16) VARENICLINE 1MG TAB TAKE ONE TABLET BY MOUTH TWICE A ACTIVE DAY FOR SMOKING CESSATION START AFTER (WHITE) 0.5MG TABLETS ARE DONE Active Non-VA Medications Status 1) Non-VA DIPHENHYDRAMINE HCL 50MG CAP 50MG MOUTH AT ACTIVE BEDTIME 2) Non-VA FOLIC ACID 1MG TAB 1MG MOUTH EVERY DAY ACTIVE 3) Non-VA MELATONIN CAP/TAB ONE CAP/TAB MOUTH AT BEDTIME ACTIVE 4) Non-VA MULTIVITAMIN CAP/TAB 1 TAB/CAP MOUTH EVERY DAY ACTIVE LABS: ANION GAP:6.4 (06/07/23 08:36) PLASMA BUN: 5 (06/07/23 08:36) PLASMA CA: 8.8 (06/07/23 08:36) PLASMA CL: 104 (06/07/23 08:36) PLASMA CO2: 31 (06/07/23 08:36) PLASMA CREA: 1.0 (06/07/23 08:36) PLASMA EGFR: 78 (06/07/23 08:36) PLASMA GLUCOSE: 189 (06/07/23 08:36) PLASMA K: 3.4 (06/07/23 08:36) PLASMA NA: 138 (06/07/23 08:36) PLASMA ALBUMIN: 3.5 (06/07/23 08:36) PLASMA ALKPHOS: 115 (06/07/23 08:36) PLASMA ALT/SGPT: <7 (06/07/23 08:36) PLASMA AST/SGOT: 14 (06/07/23 08:36) PLASMA BILI T: 0.5 (06/07/23 08:36) PLASMA T PROTEIN:6.8 (06/07/23 08:36) PLASMA TSH: 3.274 (06/07/23 08:36) PLASMA VITALS: T: 97.6 F [36.4 C] (12/14/2023 13:35) P: 66 (12/14/2023 13:35) R: 20 (12/14/2023 13:35) BP: 112/63 (12/14/2023 13:35) W: 168.6 lb [76.48 kg] (12/14/2023 13:35) BMI: 26.5 Mental Status Exam: Saul: 78yom who appears stated age, dressed in casual attire, graying hair, orients to interviewer with good eye contact, glasses, ambulates without assistance, seated comfortably Level of Consciousness: A&O x4 Psychomotor Activity: slow Speech: regular volume, rate and tone Mood: fine Affect: appropriate Behavior: cooperative Thought Process: coherent, linear Thought Content: denied SI/HI, no abnormal thought content noted Insight: fair Judgment: intact MoCA Score (re: 06/14/23): 25 A score of 26 or greater is considered normal. SELF-MEDICATION ASSESSMENT: Current medication regime reviewed with Client. Client/caregiver was able to verbalize names of medications, dosage, indications, common side effects and proper administration. Client/caregiver knowledgeable regarding obtaining refills, security and proper storage. Client/caregiver assessed to be appropriate to self-medicate. Patient was educated on condition, diagnosis, treatment plan, options for treatment, side effects, tardive dyskinesia, metabolic effects, addictive potential, risk/benefit ratio and use off-label medications. RISK ASSESSMENT: Does patient have firearms at home? denied Patient assessed for other lethal means? yes Suicidal risk assessment completed: yes Prior suicide attempts: denied The risk for harming self is considered: acute and chronically low Risk factors: Medical conditions and health-related problems Preexisting risk factors Psychological conditions Social/systemic problems Protective factors: Supportive and caring family and friends Connectedness to community, school, family, friends [place] skills (such as problem-solving, conflict resolution, anger management, impulse control, etc.) Access to appropriate medical and mental health care Violence assessment completed: yes Prior history of violence: denied The risk of violence towards others is considered: low made no comments during our conversation that were concerning and/or would suggest that the is at elevated imminent risk of harm to self or others ASSESSMENT: with PTSD, h/o MDD, and tobacco use DO. cited baseline predominant complaint of sleep dysregulation. Reported mirtazapine benefit overall, with some relatively limited intermittent poor sleep primarily in latency. 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 Has denied PTSD symptoms generally. Sleep w/ additive assistance from low-dose TCA addition to mirtazapine since 's passing, with notable reduced sleep duration during absence of use. Finding alternative SSRI approach with tolerability and improved perceptions of benefit relative to prior trial. PLAN: -> PTSD, h/o MDD: - offered supportive listening and encouraged to optimize both medication and counseling therapies, RENEWALS MANAGER PRN presently - continue sertraline 50mg daily - continue mirtazapine 15mg QHS - using OTC melatonin 10mg QHS - continue amitriptyline 25mg or 50mg QHS PRN for sleep -> monitor: sleep duration, restfulness, energy level, BALAJI's -> goals: sleep better -> progress: patient is amenable to plan as outlined -> tobacco use DO, mild: - encouraged cessation; encouraged to contemplate a quit date - pending retrial of varenicline titration to 1mg BID, per his comfort RTC: 6-8 weeks, sooner PRN Patient was provided with the 24 Hr. Veterans/ Crisis Line - Dial [phone], press #1. Instructed to call 911 or to go to the nearest ER if suicidal ideation occurs. Call clinic with any questions, concerns or in crisis. Follow up with PCP for medical issues. Medication education and counseling for new medications added today was provided to the patient/caregiver based on the individual's needs. This included why the medication was prescribed, how it should be taken and for how long, what to expect from it and what happens if not taken as prescribed. The patient/caregiver was also informed about risks and potential adverse effects of this medication and agreed to medication trial. I certify that the patient/caregiver understood my education and instructions. MEDICATION RECONCILIATION MEDICATION RECONCILIATION REPORT reviewed and discussed with patient. VA prescription medications: Patient verifies that they are in receipt of a complete and accurate list of medications. Prescription medications from another source: Patient verifies that they are in receipt of a complete and accurate list of medications. Over the counter medications, vitamins, herbals, and nutritional supplements: Patient verifies that they are in receipt of a complete and accurate list of medications. Televideo Disclaimer: Patient consented to telehealth appointment. Patient educated as to likely difference between Telehealth care and face to face care. Patient informed of the risks and benefits of using Telehealth services and procedures and likely risks and benefits of using alternatives to Telehealth services. Patient informed of the right to refuse Telehealth services at any time without jeopardizing their right to future care, services or benefits. The identity and professional status of all participants in the Telehealth encounter shall be conveyed to the patient by the practitioner giving the care. /nayan/ SAPNA MEREDITH CLINICAL ALARM INVESTIGATOR Signed: 12/16/2023 09:05 SAPNA MEREDITH [facility] Dec 14, 2023 01:36 PM PRIMARY CARE NURSI JOSE RAMON NOTE: LOCAL TITLE: OUTPATIENT NURSING INTAKE NOTE (T) STANDARD TITLE: PRIMARY CARE NURSING NOTE DATE OF NOTE: DEC 14, 2023@13:36 ENTRY DATE: DEC 14, 2023@13:36:26 AUTHOR: TERRENCE MOELLER COSIGNER: URGENCY: STATUS: COMPLETED Hemoglobin A1C Results: [...] be between 8.73 and 9.27. Ref: Comment: http://www.ngsp.org/CAPdata.as p 11/05/2022 09:27 BLOOD HEMOGLOBIN A1C 5.7 % [...] be between 8.73 and 9.27. Ref: Comment: http://www.ngsp.org/CAPdata.as p 05/05/2022 12:55 BLOOD HEMOGLOBIN A1C 6.3 H [...] be between 8.73 and 9.27. Ref: Comment: http://www.ngsp.org/CAPdata.as p Review Allergies Allergies reviewed and updated per [...] provided to patient. No/patient declined [facility] ('s [place], [employer]) What matters most to you? Comment: family and the dog /es/ TERRENCE MOELLER LICENSED PRACTICAL NURSE Signed: 12/14/2023 13:37 TERRENCE MOELLER OC
--- OUTSIDE RECORDS SUMMARY | 2023-12-14 11:00 | XMS_ITS | Encounter Summary ---
Author Name [facility] ([place] Organization [facility] Address [address] [place] [id number] Care Team Providers Care Distribution Engineering Technologist Name Role Phone LAURA GRIFFIN Primary Care [...] N PLAN N Oct 16, 2012 MEDIGAP [id number] [phone] Fabian MCPHERSON PATIENT AARP MED [facility]PP [facility] Feb 15, 2022 PLANN [id number] Fabian MCPHERSON PATIENT AARP MED SUPP MEDIGAP PLAN N PLAN N Oct 16, 2012 PLAN N [id number] Fabian MCPHERSON PATIENT MEDICARE (WNR) MEDICARE (M) PART A May 16, 2005 PART A [id number] Fabian MCPHERSONS PATIENT MEDICARE (WNR) MEDICARE (M) PART B May 16, 2005 PART B [id number] [phone] Fabian MCPHERSONS PATIENT MEDICARE (WNR) MEDICARE (M) PART A May 16, 2005 PART A [id number] [place] PATIENT MEDICARE (WNR) MEDICARE (M) PART B May 16, 2005 PART B [id number] [phone] Fabian MCPHERSON PATIENT MEDICARE (WNR) MEDICARE (M) PART A May 16, 2005 PART A [id number] [phone] Fabian MCPHERSON PATIENT MEDICARE (WNR) MEDICARE (M) PART B May 16, 2005 PART B [id number] Fabian MCPHERSON PATIENT MEDICARE PART D (WNR) PRESCRIPT ION PART D Feb 15, 2010 PART D [id number] Fabian MCPHERSON PATIENT Selected Encounter This section includes the information on record at NH for the Encounter. Date/Time Encounter Type Encounter Description Reason Provider Source Dec 14, 2023 03:00 PM OFFICE O/P EST LOW 20 MIN PODIATRY ICD-10-CM E11.42 Type 2 diabetes mellitus with diabetic polyneuropathy TARSHA LOUISE [place] Encounter Template Text not used by [place] Assessments - Encounter Diagnoses This section includes the primary and secondary diagnoses documented for the Encounter. Date/Time Primary/Secondary Diagnosis Diagnosis Name Provider Source Dec 14, 2023 03:36 PM PRIMARY Type 2 diabetes mellitus with diabetic polyneuropathy DANIAGAPITOANTELMO MEDINA [facility] Dec 14, 2023 03:36 PM SECONDARY Corns and callosities DANIJESSICA STERLING MED[facility] Dec 14, 2023 03:36 PM SECONDARY Pain in left toe(s) DANIAGAPITOANTELMO MEDINA [facility] Dec 14, 2023 03:36 PM SECONDARY Pain in right foot DANIJESSICA STERLING [facility] Dec 14, 2023 03:36 PM SECONDARY Tinea unguium STOJARRETTJESSICA [facility] Plan of Treatment: Future Appointments (+ 6 months) and Future Tests (+/- 45 days) The Plan of Treatment section includes future care activities for the patient from all [place] treatmentfacilities. This section includes future appointments and future orders which are active, pending or scheduled. Future Appointments This section includes appointments that were scheduled to occur 6 months from the date of the Encounter, up to a maximum of 20 appointments. The data comes from all [place] treatment facilities. Appointment Date/Time Appointment Type Appointme nt Facility Name Feb 01, 2024 11:00 AM AMBULATORY - PS[facility]CHIATRY [facility] Mar 21, 2024 11:00 AM AMBULATORY - SURGERY [facility] Mar 21, 2024 11:30 AM AMBULATORY - PSYCHIATRY [facility] Apr 04, 2024 01:15 PM AMBULATORY - NONE [facility] Apr 06, 2024 11:45 AM AMBULATORY - MEDICINE [facility] Apr 18, 2024 11:30 AM AMBULATORY - PSYCHIATRY [facility] Apr 25, 2024 01:00 PM [facility]ORY - NONE [facility] Jun 02, 2024 11:00 AM AMBULATORY - PSYCHIATRY [facility] Jun 02, 2024 11:30 AM [facility]ATORY - NONE [facility] Jun 02, 2024 11:45 AM AMBULATORY - NONE [facility] Social History: Smoking Status (Most current) and Tobacco Use (All prior to encounter date) This section includes the most current, and the historical, smoking and tobacco- related health factors from the [place] facility where the Encounter took place. Current Smoking Status This section includes the most current smoking, or tobacco-related health factor, from the [place] facility where the Encounter took place. Date/Time Current Smoking Status Comment Facil ity Jun 14, 2023 11:00 AM VA-TOBACCO USER EVERY DAY [facility] Tobacco Use History This section includes a history of the smoking, or tobacco-related health factors, that were collected on or before the date of the Encounter. The data comes from the [place] facility where the Encounter took place. Date/Time Smoking Status/Tobacco Use Comment F acility Jun 14, 2023 11:00 AM VA-TOBACCO USE 30 YEARS OR MORE [facility] Jun 14, 2023 11:00 AM VA-TOBACCO USE ADVICE [facility] Jun 14, 2023 11:00 AM VA-TOBACCO USE LADIES ATTENDANT NO [facility] Jun 14, 2023 11:00 AM VA-TOBACCO USE MED NO [facility] Jun 14, 2023 11:00 AM VA-TOBACCO USER EVERY DAY [facility] May 01, 2022 11:00 AM VA-TOBACCO DOESNT USE WI 30 MIN WAKEUP [facility] May 01, 2022 11:00 AM VA-TOBACCO USE 30 YEARS OR MORE [facility] May 01, 2022 11:00 AM VA-TOBACCO USE ADVICE [facility] May 01, 2022 11:00 AM VA-TOBACCO USE LADIES ATTENDANT NO [facility] May 01, 2022 11:00 [...] May 09, 2021 02:30 PM VA-TOBACCO USE LADIES ATTENDANT YES [facility] May 09, 2021 02:30 [...] Apr 02, 2020 09:00 AM VA-TOBACCO USE LADIES ATTENDANT NO [facility] Apr 02, 2020 09:00 [...] Sep 14, 2018 10:16 AM VA-TOBACCO USE LADIES ATTENDANT NO [facility] Sep 14, 2018 10:16 AM VA-TOBACCO USE MED NOTIFY STAR ER [facility] Sep 14, 2018 10:16 AM VA-TOBACCO USER EVERY DAY [facility] Sep 10, 2017 03:41 PM VA-TOBACCO DOESNT USE WI 30 MIN WAKEUP [facility] Sep 10, 2017 03:41 PM VA-TOBACCO USE 30 YEARS OR MORE [facility] Sep 10, 2017 03:41 PM VA-TOBACCO USE ADVICE [facility] Sep 10, 2017 03:41 PM VA-TOBACCO USE LADIES ATTENDANT YES [facility] Sep 10, 2017 03:41 PM VA-TOBACCO USE MED NOTIFY PROVID ER [facility] Sep 10, 2017 03:41 PM VA-TOBACCO USER EVERY DAY [facility] Sep 06, 2017 09:21 AM CURRENT TOBACCO USER [facility] Sep 06, 2017 09:21 AM SMOKING CESSATION NO [facility] Sep 06, 2017 09:21 AM TOBACCO OFFERRED P T MEDS (PROVIDER) [facility] Sep 06, 2017 09:21 AM TOBACCO OFFERRED S [facility] Aug 12, 2016 10:34 AM CURRENT TOBACCO USER [facility] Jul 23, 2015 08:53 AM CURRENT TOBACCO USER [facility] Mar 27, 2014 01:28 PM CURRENT TOBACCO USER [facility] May 05, 2012 09:42 AM CURRENT TOBACCO USER [facility] Apr 23, 2011 11:03 AM CURRENT TOBACCO USER [facility] Apr 23, 2011 11:03 AM SMOKING MEDICATION INTERES T Annie [facility] Mar 31, 2010 09:16 AM CURRENT TOBACCO USER [facility] Mar 31, 2010 09:16 AM SMOKING MEDICATION INTERES T Dr Óscar [facility] Jun 10, 2009 02:07 PM CURRENT TOBACCO USER [facility] Jun 10, 2009 02:07 PM SMOKING MEDICATION INTERES T Dr. Prince [facility] Aug 07, 2008 09:36 AM CURRENT TOBACCO USER [facility] May 18, 2008 02:38 PM CURRENT TOBACCO USER [facility] May 18, 2008 02:38 PM TOBACCO OFFERRED P T MEDS (PROVIDER) [facility] May 18, 2008 02:38 PM TOBACCO OFFERRED S [facility] Advance Directives: All historical and current Section Date Range: From patient's date of to the date document was created. This section includes ALL of a patient's completed or amended [place] Advance and Rescinded Directives. The entries below indicate that a directive exists for the patient, but an actual copy is not included with this document. The data comes from all [place] facilities. Date Advance Directives Provider Source May 03, 2019 ADVANCE DIRECTIVE DISCUSSION DEN DE LUNA [facility] Dec 28, 2012 ADVANCE DIRECTIVE CRISTI RAE Halima STEPHANE CORDOVA [facility] Dec 28, 2012 ADVANCE DIRECTIVE DISCUSSION VIDAL RAE Halima [facility] Dec 28, 2012 RESCINDED ADVANCE DIRECTIVE DONALD RAE Halima [facility] June 18, 2009 ADVANCE DIRECTIVE DISCUSSION FERNY PASTRANA JIMMY Morro [facility] Encounter Notes: All associated encounter notes This section contains the clinical notes associated to the Encounter. Date/Time Encounter Note(s) Provider Source Dec 14, 2023 03:06 PM PODIATRY NOTE: LOCAL TITLE: PODIATRY CLINIC NOTE (T) STANDARD TITLE: PODIATRY NOTE DATE OF NOTE: DEC 14, 2023@15:06 ENTRY DATE: DEC 14, 2023@15:06:54 AUTHOR: LING LOUISE COSIGNER: URGENCY: STATUS: COMPLETED [facility] SOAP Note SUBJECTIVE: The patient is a 78 year old MALE. Chief Complaint: Diabetic footcare Past Medical History: Patient presents today for diabetic footcare. Patient with neuropathy in the feet. He does state that he has pain to the ball of the feet, right greater than left. This occurs after a period of standing, it is improved after about 1 hour of rest. He states it does not typically occur with walking. Patient also states that the last compression stockings he received for open toe, he does not like these as much as he likes to close toe once. PATIENT ALLERGIES DETAILED ALLERGIES/ADVERSE REACTIONS Type: OTHER [...] TWICE A DAY ACTIVE DIRECTED BY [facility] ([phone] EXT. [phone]) 4) ASPIRIN 81MG EC TAB TAKE ONE [...] EVERY DAY FOR TYPE 2 DIABETES MELLITUS (WITH FOOD; AVOID ALCOHOL) 8) METOPROLOL TARTRATE 25MG TAB TAKE [...] MOUTH ACTIVE (S) EVERY DAY FOR CHOLESTEROL 13) SERTRALINE HCL 50MG TAB TAKE ONE TABLET BY MOUTH ACTIVE (S) DAILY FOR MAJOR DEPRESSIVE DISORDER 14) TAMSULOSIN HCL 0.4MG CAP TAKE ONE CAPSULE BY MOUTH AT ACTIVE (S) BEDTIME 15) VARENICLINE 1MG TAB TAKE ONE [...] MOUTH EVERY DAY ACTIVE 20 Total Medications MEDICATION RECONCILIATION MEDICATION RECONCILIATION REPORT reviewed and [...] a complete and accurate list of medications. ALLERGIES: ALLERGIES/ADVERSE REACTIONS Type: OTHER Date/Time Reactant Severity Reaction 05/18/2008 14:35 VICRYL SUTURES UNKNOWN Food allergies: None known FOOT RISK LEVEL: DATE TIME HEALTH FACTOR ---- ---- 02/23/2023 13:00 DAY LIMB CARE LEVEL 2 06/03/2023 13:00 DAY LIMB CARE LEVEL 2 09/09/2023 13:00 DAY LIMB CARE LEVEL 2 ACTIVE PROBLEM Benign Prostatic Hypertrophy with 08/01/2021 Outflow Obstruction ([facility] [id number]) Difficulty cutting own toenails 12/11/2020 Vitamin D Deficiency ([facility] [id number]) 10/30/2020 Abnormal findings on diagnostic imaging 08/01/2020 of lung Pulmonary asbestosis 05/01/2020 Thoracic aorta abnormality 05/01/2020 Chronic insomnia 09/26/2019 Obstructive sleep apnea of adult 05/24/2019 Hypokalemia 09/14/2018 Diabetic neuropathy 10/11/2017 Diabetes mellitus 07/23/2015 Depressive disorder 11/12/2022 Noncompliance with Treatment (SNOMED CT 10/31/2012 2293340) Sensorineural Hearing Loss, Bilateral 06/24/2011 (ICD-9-CM 389.18) Jail (current) use of 02/05/2011 Anticoagulants (ICD-9-CM V58.61) Paroxysmal atrial fibrillation (SNOMED 01/01/2015 CT 930385481) Generalized Anxiety Disorder * 06/05/2008 (ICD-9-CM 300.02) Coronary atherosclerosis (SNOMED CT 12/05/2014 981512152) Benign essential hypertension (SNOMED 07/23/2015 CT 2643433) Hyperlipidemia (SNOMED CT 43187064) 07/23/2015 Posttraumatic stress disorder (SNOMED 03/16/2019 CT 11943550) Depression 05/22/2008 Transient Ischemic Attack 05/22/2008 Tobacco use (SNOMED CT 447984967) 03/16/2019 OBJECTIVE: VASCULAR : DP palpable 2/4 b/l. PT lightly palpable b/l. CFT 4 seconds to the hallux b/l. Mild non-pitting edema noted b/l LE. Skin temperature warm to cool from proximal to distal b/l. Skin appears mildly thinned. Absent hair growth to the digits DERMATOLOGIC : Nails 1-5 b/l elongated, minimally thickened, and yellow. Webspaces 1-4 b/l are clean, dry, and intact. Hyperkeratotic lesion at the plantar medial 1st MPJ Bilateral and horny hyperkeratosis to the sulcus of 2nd digit right foot. NEUROLOGIC : Protective sensation absent at all sites b/l as tested with SWMF.Light touch intact to the hallux b/l. MUSCULOSKELETAL : 5/5 muscle strength for all dorsiflexors, plantarflexors, inverters, everters, painfree. Decreased ROM 1st MPJ b/l, right greater than left. Subjective fat pad atrophy met head right. Pain to plantar first MPJ bilateral as well as all toenails PAVE FOOT EXAM A foot risk level was completed. The following risk level was identified for this patient: +POD RISK SCORE+ --LEVEL 2 - (MODERATE RISK) Sensory loss and may have one additional finding below Diminished circulation Foot deformity -POD RISK SCORE- Patient currently being followed by Podiatry or other foot care provider. LEVEL 2 FOOT EDUCATION: 1. Advised patient that therapeutic footwear and orthosis are required to accommodate foot deformities, to compensate for soft tissue atrophy, and to evenly distribute plantar foot pressures. 2. Advised patient not to walk barefoot. Instructed the patient to pay close attention to the style and fit of shoes. 3. Explained the importance of daily foot checks. Explained that loss of sensation leads to callouses. Callouses break down, which result in ulcers that may lead to gangrene and amputation. 4. Stressed the importance of daily foot hygiene. Warm (not hot) bathing of the feet, complete drying and thorough inspection for changes in the condition of the skin constitute daily foot care. Demonstrated how to do a thorough foot check. 5. Emphasized the use of clean, non-restrictive socks/stockings and well fitting shoes. 6. Stressed the importance of immediate follow-up of any foot injuries or ulcers. Explained that he/she should be non-weight bearing whenever there are lesions on the foot, to prevent cellular damage. Level of Understanding: Good Patient/Caregiver having difficulty examining feet No Patient/caregiver has difficulty cleansing feet No Patient walks barefoot Never Instructed on the importance of not walking barefoot ASSESSMENT: After reviewing the H&P and clinical findings, this provider made the diagnosis of: Diabetes Mellitus with neuropathy Onychomycosis Hyperkeratotic lesions Hallux limitus Anticoagulation therapy Edema Plan: Treatment today consisted of: -Patient examination and evaluation. -Debridement of nails 1-5 b/l without incident. -Debride hyperkeratotic lesions x 3. Applied silicone offloading to the first MPJ bilateral. -Continue extra-depth shoes and custom orthotics -Dispensed 2 additional pair pair zipper compression stockings, L/XL zipper presadee. Close toe. -Patient to return to clinic in 3.5 months. Response to care/Rationale for care: Patient stable, indications for regular follow-up due to loss of protective sensation. /nayan/ LING LOUISE HUMAN FACTORS SCIENTIST Signed: 12/14/2023 15:36 LING LOUISE [facility]
--- OUTSIDE RECORDS SUMMARY | 2023-12-17 12:33 | XMS_ITS ---
Author Name [facility] [place] Organization [facility] [place] Address [address] [place] [address] Care Team Providers Care Hospice Clinical Manager Name Role Phone LAURA GRIFFIN Primary Care [...] N PLAN N Oct 16, 2012 MEDIGAP [id number] [phone] Fabian MCPHERSON PATIENT AARP MED [facility]PP [facility] Feb 15, 2022 PLANN [id number] Fabian MCPHERSON PATIENT AARP MED SUPP MEDIGAP PLAN N PLAN N Oct 16, 2012 PLAN N [id number] Fabian MCPHERSON PATIENT MEDICARE (WNR) MEDICARE (M) PART A May 16, 2005 PART A [id number] Fabian MCPHERSONS PATIENT MEDICARE (WNR) MEDICARE (M) PART B May 16, 2005 PART B [id number] Fabian MCPHERSON PATIENT MEDICARE (WNR) MEDICARE (M) PART A May 16, 2005 PART A [id number] Fabian MCPHERSONS PATIENT MEDICARE (WNR) MEDICARE (M) PART B May 16, 2005 PART B [id number] Fabian MCPHERSON PATIENT MEDICARE (WNR) MEDICARE (M) PART A May 16, 2005 PART A [id number] Fabian MCPHERSON PATIENT MEDICARE (WNR) MEDICARE (M) PART B May 16, 2005 PART B [id number] Fabian MCPHERSON PATIENT MEDICARE PART D (WNR) PRESCRIPT ION PART D Feb 15, 2010 PART D [id number] Fabian MCPHERSON PATIENT Selected Encounter This section includes the information on record at [place] for the Encounter. Date/Time Encounter Type Encounter Description Reason Pro vider Source Dec 17, 2023 04:33 PM Outpatient Encounter ONCOLOGY/TUMOR IHE Encounter Template Text not used by [place] Plan of Treatment: Future Appointments (+ 6 months) and Future Tests (+/- 45 days) The Plan of Treatment section includes future care activities for the patient from all [place] treatmentfacilities. This section includes future appointments and future orders which are active, pending or scheduled. Future Appointments This section includes appointments that were scheduled to occur 6 months from the date of the Encounter, up to a maximum of 20 appointments. The data comes from all [place] treatment facilities. Appointment Date/Time Appointment Type Appointme nt Facility Name Feb 01, 2024 11:00 AM AMBULATORY [facility] Mar 21, 2024 11:00 AM AMBULATORY - SURGERY [facility] Mar 21, 2024 11:30 AM AMBULATORY - PS[facility]CHIATRY [facility] Apr 04, 2024 01:15 PM AMBULATORY - NONE [facility] Apr 06, 2024 11:45 AM [facility] Apr 18, 2024 11:30 AM AMBUL[facility]ORY - PS[facility]CHIATRY [facility] Apr 25, 2024 01:00 PM AMBULATORY - NONE [facility] Jun 02, 2024 11:00 AM AMBULATORY - PSYCHIATRY [facility] Jun 02, 2024 11:30 AM AMBULATORY - NONE [facility] Jun 02, 2024 11:45 AM AMBULATORY - NONE [facility] Social History: Smoking Status (Most current) and Tobacco Use (All prior to encounter date) This section includes the most current, and the historical, smoking and tobacco- related health factors from the [place] facility where the Encounter took place. Current Smoking Status This section includes the most current smoking, or tobacco-related health factor, from the [place] facility where the Encounter took place. Date/Time Current Smoking Status Comment Waqas ulloa Sep 06, 2017 09:21 AM SMOKING CESSATION NO [facility] Tobacco Use History This section includes a history of the smoking, or tobacco-related health factors, that were collected on or before the date of the Encounter. The data comes from the [place] facility where the Encounter took place. Date/Time Smoking Status/Tobacco Use Comment F acility Jun 12, 2015 01:08 PM TOBACCO CURRENT USER 1/2 pack a day [facility] Apr 24, 2013 09:26 AM CURRENT TOBACCO USER [facility] Advance Directives: All historical and current Section Date Range: From patient's date of to the date document was created. This section includes ALL of a patient's completed or amended [place] Advance and Rescinded Directives. The entries below indicate that a directive exists for the patient, but an actual copy is not included with this document. The data comes from all [place] facilities. Date Advance Directives Provider Source May 03, 2019 ADVANCE DIRECTIVE DISCUSSION DEN DE LUNA [facility] Dec 28, 2012 ADVANCE DIRECTIVE CRISTI RAE [facility] Dec 28, 2012 ADVANCE DIRECTIVE DISCUSSION VIDAL RAE [facility] Dec 28, 2012 RESCINDED ADVANCE DIRECTIVE DONALD RAE [facility] June 18, 2009 ADVANCE DIRECTIVE DISCUSSION FERNY PASTRANA [facility] Encounter Notes: All associated encounter notes This section contains the clinical notes associated to the Encounter. Date/Time Encounter Note(s) Provider Source Dec 17, 2023 04:33 PM LETTERS: LOCAL TITLE: LUNG CANCER SCREENING LETTER STANDARD TITLE: LETTERS DATE OF NOTE: DEC 17, 2023@16:33 ENTRY DATE: DEC 17, 2023@16:33:38 AUTHOR: CRISTI GRULLON EXP COSIGNER: URGENCY: STATUS: COMPLETED [facility] [address] [place] [address] Dec [facility] [address] [place] [id number] Dear : Your primary care provider requested we talk with you about our Lung Cancer Screening Program. Contact Cristi Grullon at [phone], ext. [phone] to discuss enrollment in the [place] Lung Cancer Screening Program. You can also learn more about our program by visiting https://www.prevention.ct.gov/p reventing_diseases/screening_fo r_lung_cancer.asp. If you still smoke cigarettes, we can help you quit. We understand that quitting cigarette smoking is difficult, but it is the best way to improve your health. When you want help, let your primary care provider know. You can also call 3-370-VCEO-VET ( ) or visit [employer].smokefree.gov. Sincerely, The Lung Cancer Screening Program CRISTI GRULLON [facility]
--- OUTSIDE RECORDS SUMMARY | 2024-02-01 07:00 | XMS_ITS | Encounter Summary ---
Author Name [facility] [place] [facility] Address [address] [place] [address] Care Team Providers Care Ship Surveyor Name Role Phone LAURA GRIFFIN Primary Care [...] N PLAN N Oct 16, 2012 MEDIGAP [id number] [id number] Fabian MCPHERSON PATIENT AARP MED [facility] Feb 15, 2022 PLANN [id number] Fabian MCPHERSON PATIENT AARP MED SUPP MEDIGAP PLAN N PLAN N Oct 16, 2012 PLAN N [id number] Fabian MCPHERSON PATIENT MEDICARE (WNR) MEDICARE (M) PART A May 16, 2005 PART A [id number] Fabian MCPHERSONS PATIENT MEDICARE (WNR) MEDICARE (M) PART B May 16, 2005 PART B [id number] Fabian MCPHERSONS PATIENT MEDICARE (WNR) MEDICARE (M) PART A May 16, 2005 PART A [id number] [place] PATIENT MEDICARE ([place]NR) MEDICARE (M) PART B May 16, 2005 PART B [id number] Fabian MCPHERSON PATIENT MEDICARE (WNR) MEDICARE (M) PART B May 16, 2005 PART B [id number] [phone] Fabian MCPHERSON PATIENT MEDICARE (WNR) MEDICARE (M) PART A May 16, 2005 PART A [id number] Fabian MCPHERSON PATIENT MEDICARE PART D (WNR) PRESCRIPT ION PART D Feb 15, 2010 PART D [id number] Fabian MCPHERSON PATIENT Selected Encounter This section includes the information on record at [place] for the Encounter. Date/Time Encounter Type Encounter Description Reason Provider Source Feb 01, 2024 11:00 AM MTMS BY EREN BERG [facility] - IND ICD-10-CM F43.10 Post-traumatic stress disorder, unspecified REGAN MEREDITH [place] Encounter Template Text not used by [place] Assessments - Encounter Diagnoses This section includes the primary and secondary diagnoses documented for the Encounter. Date/Time Primary/Secondary Diagnosis Diagnosis Name Provider Source Feb 02, 2024 10:24 AM PRIMARY Post-traumatic stress disorder, unspecified REGAN MEREDITH [facility] Feb 02, 2024 10:24 AM SECONDARY Depression, unspecified REGAN MEREDITH [facility] Feb 02, 2024 10:24 AM SECONDARY Tobacco use REGAN MEREDITH [facility] Plan of Treatment: Future Appointments (+ 6 months) and Future Tests (+/- 45 days) The Plan of Treatment section includes future care activities for the patient from all [place] treatmentfacilities. This section includes future appointments and future orders which are active, pending or scheduled. Future Appointments This section includes appointments that were scheduled to occur 6 months from the date of the Encounter, up to a maximum of 20 appointments. The data comes from all [place] treatment facilities. Appointment Date/Time Appointment Type Appointme nt Facility Name Mar 21, 2024 11:00 AM AMBULATORY - SURGERY [facility] Mar 21, 2024 11:30 AM AMBULATORY - PSYCHIATRY [facility] Apr 04, 2024 01:15 PM AMBULATORY - NONE [facility] Apr 06, 2024 11:45 AM AMBULATORY - MEDICINE [facility] Apr 18, 2024 11:30 AM AMBULATORY - PSY[facility]IATRY [facility] Apr 25, 2024 01:00 PM AMBULATORY - NONE [facility] Jun 02, 2024 11:00 AM AMBULATORY - PSYCHIATRY [facility] Jun 02, 2024 11:30 AM AMBULATORY - NONE [facility] Jun 02, 2024 11:45 AM AMBULATORY - NONE [facility] June 21, 2024 10:30 AM AMBULATORY - NONE [facility] June 28, 2024 11:30 AM AMBULATORY - SURGERY [facility] Jul 26, 2024 11:00 AM AMBULATORY - PSYCHIATRY CL [facility] Social History: Smoking Status (Most current) and [...] place. 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 [facility] Sep 14, 2018 10:16 [...] Sep 10, 2017 03:41 PM VA-TOBACCO USE 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 ROLL 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 YES [facility] Sep 10, 2017 03:41 PM VA-TOBACCO USE MED NOTIFY PROVID ER [facility] Sep 10, 2017 03:41 PM VA-TOBACCO USER EVERY DAY [facility] Sep 06, 2017 09:21 AM CURRENT TOBACCO USER [facility] Sep 06, 2017 09:21 AM SMOKING CESSATION NO [facility] Sep 06, 2017 09:21 AM TOBACCO OFFERRED P T MEDS (PROVIDER) [facility] Sep 06, 2017 09:21 AM TOBACCO OFFERRED S [facility] Aug 12, 2016 10:34 AM CURRENT TOBACCO USER [facility] Jul 23, 2015 08:53 AM CURRENT TOBACCO USER [facility] Mar 27, 2014 01:28 PM CURRENT TOBACCO USER [facility] May 05, 2012 09:42 AM CURRENT TOBACCO USER [facility] Apr 23, 2011 11:03 AM CURRENT TOBACCO USER [facility] Apr 23, 2011 11:03 AM SMOKING MEDICATION INTERES T Annie [facility] Mar 31, 2010 09:16 AM CURRENT TOBACCO USER [facility] Mar 31, 2010 09:16 AM SMOKING MEDICATION INTERES T Dr Óscar [facility] Jun 10, 2009 02:07 PM CURRENT TOBACCO USER [facility] Jun 10, 2009 02:07 PM SMOKING MEDICATION INTERES T Dr. Prince [facility] Aug 07, 2008 09:36 AM CURRENT TOBACCO USER [facility] May 18, 2008 02:38 PM CURRENT TOBACCO USER [facility] May 18, 2008 02:38 PM TOBACCO OFFERRED P T MEDS (PROVIDER) [facility] May 18, 2008 02:38 PM TOBACCO OFFERRED S [facility] Advance Directives: All historical and current [...] 2019 ADVANCE DIRECTIVE DISCUSSION DEN DE LUNA [facility] Dec 28, 2012 ADVANCE DIRECTIVE CRISTI RAE [facility] Dec 28, 2012 ADVANCE DIRECTIVE DISCUSSION VIDAL RAE Halima [facility] Dec 28, 2012 RESCINDED ADVANCE DIRECTIVE DONALD RAE [facility] June 18, 2009 ADVANCE DIRECTIVE DISCUSSION FERNY PASTRANA Morro [facility] Encounter Notes: All associated encounter notes This section contains the clinical notes associated to the Encounter. Date/Time Encounter Note(s) Provider Source Feb 02, 2024 10:25 AM ADDENDUM: LOCAL TITLE: Addendum STANDARD TITLE: ADDENDUM DATE OF NOTE: FEB 02, 2024@10:25:02 ENTRY DATE: FEB 02, 2024@10:25:04 AUTHOR: SAPNA MEREDITH EXP COSIGNER: URGENCY: STATUS: COMPLETED [place] requesting renewals on the below orders. PACT provider alerted. --> PANTOPRAZOLE NA 20MG EC TAB TAKE ONE TABLET BY MOUTH ACTIVE EVERY MORNING, ON AN EMPTY STOMACH --> RANOLAZINE 500MG SA TAB TAKE ONE TABLET BY MOUTH EVERY 12 HOURS FOR RAPID VENTRICULAR HEARTBEAT /es/ SAPNA MEREDITH CLINICAL PLANT CULTURE MANAGER Signed: 02/02/2024 10:25 Receipt Acknowledged By: 02/02/2024 11:04 /es/ LAURA GRIFFIN NURSE PRACTITIONER --- Original Document --- 02/01/24 [facility] PSYCHIATRY NOTE (T): PSYCHIATRIC EVALUATION NOTE Time in: 1103 Time out: 1127 Time spent: 24 min TS is a 78yom w/ a [...] in video to home appointment: denied CC: Overall, I'm doing well HPI: Vlad was last spoken with on 12/14/23 where he reported on activities and travel with daughter. Feeling okay still.. I think with sertraline, it's fine, it's doing what it's supposed to.. yes, I am still having some lack of drive . [place] this was more closely related to the reflection of the day, the mood of the day . Denied days on end with motivation deficit. Feeling that he was prioritizing at times, and that his sleep, influenced by his ageing dog, plays a role in this further. He maintains cleanliness around the home well, and paying for yard and cleaning services. Sleep reported as suboptimal at times, it could be better than it has been . He knows in part that his dog contributes to this. Let's leave things where they are right now . May have to consider putting O[place] down, depending on progression. Will monitor without change. A telephone/televideo session was done as scheduled, which he was amenable to. His Thanksgiving in [facility] was enjoyable with daughter, discussing their enjoyment of the [employer] parade, [employer] show, and [employer] on [place]. We were busy . Daughter continues to encourage moving closer to her, in [place], although he continues to maintain his independence well. I can't live any cheaper than where I am, it's paid for and it's manageable.. things are going okay, I mean, no problems . Reviewed his use of medication as well, with adherence, tolerability, and stable perceptions of supportive benefit. I seem to be having more restless nights right now, but I would preface this with that I had to put O[place] to sleep . This was a quality of life concern with disease progression, and he feels this is an adjustment; I honestly don't know.. I don't sit there and dwell on it though . Most of the time endorsing adequate duration of rest. His holiday plans include daughter visiting sometime next week, and then afterwards he is planning to visit his brother in [place] for dinner. His son in [place] is well, although rarely hears from him. I think we've talked four times since my . He is somewhat bothered in that they will visit his 's parents 3-4 times a year, although has difficulty communicating this to son. Provided supportive listening and attempts at problem solving. Some dog sitting for daughter recently, and me Jim got along fine . Denied concerns for mood at this time; I'm not having any problems.. doing a little soul searching on some other things.. overall, I'm doing well, I'm happy where I am . Planning for 2024, having had a few calls about this recently. Denied SI/HI. SUBSTANCE USE HX: Nicotine- baseline between 0.25-0.5ppd. NRT failed previously. Bupropion trial w/ plateau of effect and inability to facilitate goal. Previously had planned for varenicline retrial. Ongoing increase in use to 1ppd. At present, it's in the back of my mind, maybe for new years . Intends on this to be cold turkey and was encouraged to outreach should assistance be helpful. He will contemplate. Alcohol- denied Illicit- denied PSYCHIATRIC MEDICATION HISTORY: According to CPRS and [employer] remote data of [facility] [place], the pt has a h/o [...] Non-VA melatonin use noted. VARENICLINE (stopped d/t recall, with pending retrial that was not pursued). ALLERGIES/ADVERSE REACTIONS Type: OTHER Date/Time Reactant Severity [...] ACTIVE DIRECTED BY [facility] ([phone] EXT. [id number]) 4) ASPIRIN 81MG EC TAB TAKE ONE TABLET BY MOUTH EVERY ACTIVE (S) DAY (WITH FOOD) 5) ISOSORBIDE MONONITRATE 120MG SA TAB TAKE ONE TABLET ACTIVE BY MOUTH TWICE A DAY 6) LISINOPRIL [...] TABLETS ARE DONE Inactive Outpatient Medications Status 1) RANOLAZINE 500MG SA TAB TAKE ONE TABLET BY MOUTH EVERY 12 HOURS FOR RAPID VENTRICULAR HEARTBEAT Active Non-VA Medications Status 1) Non-VA DIPHENHYDRAMINE [...] friends Connectedness to community, school, family, friends Albia skills (such as problem-solving, conflict resolution, anger management, impulse control, etc.) Access to appropriate medical and mental health care Violence assessment completed: yes Prior history of violence: denied The risk of violence towards others is considered: low made no comments during our conversation that were concerning and/or would suggest that the is at elevated imminent risk of harm to self or others ASSESSMENT: [place] with PTSD, h/o MDD, and tobacco use DO. [place] cited baseline predominant complaint of sleep dysregulation. [...] to optimize both medication and counseling therapies, SPECIALTY THERAPIST PRN presently - continue sertraline 50mg daily - continue mirtazapine 15mg QHS - using OTC melatonin 10mg QHS - continue amitriptyline 25mg or 50mg QHS PRN for sleep -> monitor: sleep duration, restfulness, energy level, BALAJI's -> goals: sleep better -> progress: patient is amenable to plan as outlined -> tobacco use DO, mild: - encouraged cessation; encouraged to contemplate a quit date RTC: 6-8 weeks, sooner PRN Patient was [...] giving the care. /nayan/ SAPNA MEREDITH CLINICAL PLANT CULTURE MANAGER Signed: 02/02/2024 10:24 SAPNA MEREDITH CB Feb 01, 2024 10:57 AM PSYCHIATRY NOTE: LOCAL TITLE: [facility] PSYCHIATRY NOTE (T) STANDARD TITLE: PSYCHIATRY NOTE DATE OF NOTE: FEB 01, 2024@10:57 ENTRY DATE: FEB 01, 2024@10:58:09 AUTHOR: SAPNA MEREDITH EXP COSIGNER: URGENCY: STATUS: COMPLETED CB PSYCHIATRY NOTE (T) Has ADDENDA PSYCHIATRIC EVALUATION NOTE Time in: 1103 Time out: 1127 Time spent: 24 min TS is a 78yom w/ a [...] in video to home appointment: denied CC: Overall, I'm doing well HPI: Vlad was last spoken with on 12/14/23 where he reported on activities and travel with daughter. Feeling okay still.. I think with sertraline, it's fine, it's doing what it's supposed to.. yes, I am still having some lack of drive . [place] this was more closely related to the reflection of the day, the mood of the day . Denied days on end with motivation deficit. Feeling that he was prioritizing at times, and that his sleep, influenced by his ageing dog, plays a role in this further. He maintains cleanliness around the home well, and paying for yard and cleaning services. Sleep reported as suboptimal at times, it could be better than it has been . He knows in part that his dog contributes to this. Let's leave things where they are right now . May have to consider putting Orona down, depending on progression. Will monitor without change. A telephone/televideo session was done as scheduled, which he was amenable to. His Thanksgiving in [facility] was enjoyable with daughter, discussing their enjoyment of the [employer] parade, [employer] show, and [employer] on [place]. We were busy . Daughter continues to encourage moving closer to her, in [place], although he continues to maintain his independence well. I can't live any cheaper than where I am, it's paid for and it's manageable.. things are going okay, I mean, no problems . Reviewed his use of medication as well, with adherence, tolerability, and stable perceptions of supportive benefit. I seem to be having more restless nights right now, but I would preface this with that I had to put [place] to sleep . This was a quality of life concern with disease progression, and he feels this is an adjustment; I honestly don't know.. I don't sit there and dwell on it though . Most of the time endorsing adequate duration of rest. His holiday plans include daughter visiting sometime next week, and then afterwards he is planning to visit his brother in [place] for dinner. His son in [place] is well, although rarely hears from him. I think we've talked four times since my . He is somewhat bothered in that they will visit his 's parents 3-4 times a year, although has difficulty communicating this to son. Provided supportive listening and attempts at problem solving. Some dog sitting for daughter recently, and me Jim got along fine . Denied concerns for mood at this time; I'm not having any problems.. doing a little soul searching on some other things.. overall, I'm doing well, I'm happy where I am . Planning for 2024, having had a few calls about this recently. Denied SI/HI. SUBSTANCE USE HX: Nicotine- baseline between 0.25-0.5ppd. NRT failed previously. Bupropion trial w/ plateau of effect and inability to facilitate goal. Previously had planned for varenicline retrial. Ongoing increase in use to 1ppd. At present, it's in the back of my mind, maybe for new years . Intends on this to be cold turkey and was encouraged to outreach should assistance be helpful. He will contemplate. Alcohol- denied Illicit- denied PSYCHIATRIC MEDICATION HISTORY: According to [employer] and [employer] remote data of [place] outpatient [place], the pt has a h/o [...] Non-VA melatonin use noted. VARENICLINE (stopped d/t recall, with pending retrial that was not pursued). ALLERGIES/ADVERSE REACTIONS Type: OTHER Date/Time Reactant Severity [...] ACTIVE DIRECTED BY [facility] ([phone] EXT. [id number]) 4) ASPIRIN 81MG EC TAB TAKE ONE TABLET BY MOUTH EVERY ACTIVE (S) DAY (WITH FOOD) 5) ISOSORBIDE MONONITRATE 120MG SA TAB TAKE ONE TABLET ACTIVE BY MOUTH TWICE A DAY 6) LISINOPRIL [...] TABLETS ARE DONE Inactive Outpatient Medications Status 1) RANOLAZINE 500MG SA TAB TAKE ONE TABLET BY MOUTH EVERY 12 HOURS FOR RAPID VENTRICULAR HEARTBEAT Active Non-VA Medications Status 1) Non-VA DIPHENHYDRAMINE [...] friends Connectedness to community, school, family, friends Albia skills (such as problem-solving, conflict resolution, anger management, impulse control, etc.) Access to appropriate medical and mental health care Violence assessment completed: yes Prior history of violence: denied The risk of violence towards others is considered: low [place] made no comments during our conversation that were concerning and/or would suggest that the is at elevated imminent risk of harm to self or others ASSESSMENT: [place] with PTSD, h/o MDD, and tobacco use [...] to optimize both medication and counseling therapies, SPECIALTY THERAPIST PRN presently - continue sertraline 50mg daily - continue mirtazapine 15mg QHS - using OTC melatonin 10mg QHS - continue amitriptyline 25mg or 50mg QHS PRN for sleep -> monitor: sleep duration, restfulness, energy level, BALAJI's -> goals: sleep better -> progress: patient is amenable to plan as outlined -> tobacco use DO, mild: - encouraged cessation; encouraged to contemplate a quit date RTC: 6-8 weeks, sooner PRN Patient was [...] RECONCILIATION REPORT reviewed and discussed with patient. [place] prescription medications: Patient verifies that they are [...] giving the care. /nayan/ SAPNA MEREDITH CLINICAL PLANT CULTURE MANAGER Signed: 02/02/2024 10:24 02/02/2024 ADDENDUM STATUS: COMPLETED requesting renewals on the below orders. PACT provider alerted. --> PANTOPRAZOLE NA 20MG EC TAB TAKE ONE TABLET BY MOUTH ACTIVE EVERY MORNING, ON AN EMPTY STOMACH --> RANOLAZINE 500MG SA TAB TAKE ONE TABLET BY MOUTH EVERY 12 HOURS FOR RAPID VENTRICULAR HEARTBEAT /nayan/ SAPNA MEREDITH CLINICAL PLANT CULTURE MANAGER Signed: 02/02/2024 10:25 Receipt Acknowledged By: * AWAITING SIGNATURE * LAURA GRIFFIN ROBERT J SANDUSKY OC
--- OUTSIDE RECORDS SUMMARY | 2024-03-21 07:00 | XMS_ITS | Encounter Summary ---
Author Name [facility] [place] Organization [facility] [place] Address [address] [place] [id number] Care Team Providers Care Manager Ed Name Role Phone LAURA GRIFFIN Primary Care [...] N PLAN N Oct 16, 2012 MEDIGAP [id number] [phone] Fabian MCPHERSON PATIENT AARP MED SUPP [facility] Feb 15, 2022 PLANN [id number] Fabian MCPHERSON PATIENT AARP MED SUPP MEDIGAP PLAN N PLAN N Oct 16, 2012 PLAN N [id number] [phone] Fabian MCPHERSON PATIENT MEDICARE (WNR) MEDICARE (M) PART A May 16, 2005 PART A [id number] Fabian MCPHERSONS PATIENT MEDICARE (WNR) MEDICARE (M) PART B May 16, 2005 PART B [id number] Fabian MCPHERSONS PATIENT MEDICARE (WNR) MEDICARE (M) PART A May 16, 2005 PART A [id number] [place] PATIENT MEDICARE (WNR) MEDICARE (M) PART B May 16, 2005 PART B [id number] Fabian MCPHERSON PATIENT MEDICARE (WNR) MEDICARE (M) PART A May 16, 2005 PART A [id number] Fabian MCPHERSON PATIENT MEDICARE (WNR) MEDICARE (M) PART B May 16, 2005 PART B [id number] [phone] Fabian MCPHERSON PATIENT MEDICARE PART D (WNR) PRESCRIPT ION PART D Feb 15, 2010 PART D [id number] Fabian MCPHERSON PATIENT Selected Encounter This section includes the information on record at [place] for the Encounter. Date/Time Encounter Type Encounter Description Reason Provider Source Mar 21, 2024 11:00 AM OFFICE O/P EST LOW 20 MIN PODIATRY ICD-10-CM L60.9 Nail disorder, unspecified STOIBER,JENNIF ER IHE Encounter Template Text not used by [facility] Assessments - Encounter Diagnoses This section includes the primary and secondary diagnoses documented for the Encounter. Date/Time Primary/Secondary Diagnosis Diagnosis Name Provider Source Mar 21, 2024 11:37 AM PRIMARY Nail disorder, unspecified STOIBER,JESSICA CRUZY [facility] Mar 21, 2024 11:37 AM SECONDARY Metatarsalgia, left foot STOIBER,JESSICA CRUZY [facility] Mar 21, 2024 11:37 AM SECONDARY Metatarsalgia, right foot STOIBER,JESSICA CRUZY [facility] Mar 21, 2024 11:37 AM SECONDARY Pain in left toe(s) STOIBER,JESSICA CALDERÓNUSKY [facility] Mar 21, 2024 11:37 AM SECONDARY Pain in right foot STOIBER,JESSICA CALDERÓNUSKY [facility] Mar 21, 2024 11:37 AM SECONDARY Type 2 diabetes mellitus with diabetic polyneuropathy JOSELITOJARRETTJESSICA [facility] Plan of Treatment: Future Appointments (+ 6 [...] 20 appointments. The data comes from all [place] treatment facilities. Appointment Date/Time Appointment Type Appointme nt Facility Name Apr 04, 2024 01:15 PM AMBULATORY - NONE [facility] Apr 06, 2024 11:45 AM AMBULATORY - MEDICINE [facility] Apr 18, 2024 11:30 AM AMBULATORY - PSYCHIATRY [facility] Apr 25, 2024 01:00 PM [facility] - NONE [facility] Jun 02, 2024 11:00 AM AMBULATORY - PSYCHIATRY [facility] Jun 02, 2024 11:30 AM [facility]ATORY - NONE [facility] Jun 02, 2024 11:45 AM AMBULATORY - NONE [facility] June 21, 2024 10:30 AM [facility] June 28, 2024 11:30 AM AMBULATORY - SURGERY [facility] Jul 26, 2024 11:00 AM AMBULATORY - PSYCHIATRY [facility] Lab Results: +/- 30 days of the encounter This section includes the Chemistry and Hematology Lab Results on record with [place] for the patient. Radiology Reports and Pathology Reports are provided separately, in subsequent sections. Lab Results This section contains the Chemistry/Hematology Results that were resulted 30 days before or 30 daysafter the date of the Encounter. Date/Time Source Result Type Result - Unit Interpretation Reference Range Specimen Type Comment Apr 04, 2024 01:14 PM [facility] CREATININE (W EGFR) PLASMA Specimen Type: PLASMA Comment: TP Per package insert reference range for recumbent is 6.0 to 7.8 TP g/dL and for >60 y/o is lower by 0.2 g/dL. Plasma samples will TP generally have higher values (about 0.2 to 0.4 g/dL higher) due TP to presence of fibrinogen. Ordering Provider: AL MOJICA Report Released Date/Time: Apr 04, 2024 01:05 PM Reporting Lab: [facility] [address] [facility] [address] Performing Lab: [facility] [address] [facility] [address] CREATININE 1.0 mg/dL 0.7-1.3 EGFR (CALCULATED) 78.0 mL/min Apr 04, 2024 01:14 PM [facility] HEPATIC FUNCTION PANEL PLASMA Specimen Type: PLASMA Comment: TP Per package insert reference range for recumbent is 6.0 to 7.8 TP g/dL and for >60 y/o is lower by 0.2 g/dL. Plasma samples will TP generally have higher values (about 0.2 to 0.4 g/dL higher) due TP to presence of fibrinogen. Ordering Provider: AL MOJICA Report Released Date/Time: Apr 04, 2024 01:05 PM Reporting Lab: [address] [address] Performing Lab: [place] [id number] ALBUMIN 3.7 g/dL 3.5-4.8 ALKALINE PHOSPHATASE 89 U/L 40-150 ALT/SGPT 13 U/L <55 AST/SGOT 17 U/L 10-40 BILIRUBIN,DIRECT 0.2 mg/dL <0.5 PROTEIN, TOTAL 6.8 g/dL 6.4-8.3 BILIRUBIN, TOTAL 0.3 mg/dL 0.2-1.2 Apr 04, 2024 01:14 PM [facility] CBC BLOOD Specimen Type: BLOOD No comment entered. Ordering Provider: AL MOJICA Report Released Date/Time: Apr 04, 2024 01:05 PM Reporting Lab: [address] [address] Performing Lab: [address] [address] WBC COUNT 6.8 10*3/uL 3.6-11.0 RBC COUNT 4.80 10*6/uL 4.47-5.83 HGB 11.2 g/dL L 13.6-17.4 HCT 34.9 L 40.0-51.0 MCV 72.7 fL L 80.0-96.0 MCH 23.3 pg L 27.0-31.0 MCHC 32.1 g/dL 31.5-36.5 PLT 171 10*3/uL 150-400 LYMPHS % 20.6 L 21.0-51.0 MONOCYTES % 11.2 H 4.0-8.0 NUCLEATED RBC/100WBC 0.0 /100{WBCs} RDW 19.6 H 11.2-15.8 NEUTROPHIL % 64.5 54.0-78.0 EOSINOPHIL % 3.1 H 0.0-3.0 BASOPHIL % 0.6 0.0-3.0 ABSOLUTE LYMPHOCYTE COUNT 1.4 10*3/uL 0. 8-5.0 ABSOLUTE NEUTROPHIL COUNT 4.4 10*3/uL 1. 9-8.6 ABSOLUTE BASOPHIL COUNT 0.0 10*3/uL 0.0- 0.3 ABSOLUTE MONOCYTE COUNT 0.8 10*3/uL 0.1- 0.9 ABSOLUTE EOSINOPHIL COUNT 0.2 10*3/uL 0. 0-0.3 MPV 10.1 fL 7.4-11.4 Social History: Smoking Status (Most current) and Tobacco Use (All prior to encounter date) This section includes the most current, and the historical, smoking and tobacco- related health factors from the [place] facility where the Encounter took place. Current Smoking Status This section includes the most current smoking, or tobacco-related health factor, from the [place] facility where the Encounter took place. Date/Time Current Smoking Status Comment Facil ity Jun 14, 2023 11:00 AM VA-TOBACCO USER EVERY DAY [facility] Tobacco Use History This section includes a history of the smoking, or tobacco-related health factors, that were collected on or before the date of the Encounter. The data comes from the [place] facility where the Encounter took place. Date/Time Smoking Status/Tobacco Use Comment F acility Jun 14, 2023 11:00 AM VA-TOBACCO USE 30 YEARS OR MORE [facility] Jun 14, 2023 11:00 AM VA-TOBACCO USE ADVICE [facility] Jun 14, 2023 11:00 AM VA-TOBACCO USE GUARD MANAGER NO [facility] Jun 14, 2023 11:00 [...] May 01, 2022 11:00 AM VA-TOBACCO USE GUARD MANAGER NO [facility] May 01, 2022 11:00 [...] May 09, 2021 02:30 PM VA-TOBACCO USE GUARD MANAGER YES [facility] May 09, 2021 02:30 [...] Apr 02, 2020 09:00 AM VA-TOBACCO USE GUARD MANAGER NO [facility] Apr 02, 2020 09:00 [...] Sep 14, 2018 10:16 AM VA-TOBACCO USE GUARD MANAGER NO [facility] Sep 14, 2018 10:16 [...] Sep 10, 2017 03:41 PM VA-TOBACCO USE GUARD MANAGER YES [facility] Sep 10, 2017 03:41 PM VA-TOBACCO USE MED NOTIFY STAR ER [facility] Sep 10, 2017 03:41 PM VA-TOBACCO USER EVERY DAY [facility] Sep 06, 2017 09:21 AM CURRENT TOBACCO USER [facility] Sep 06, 2017 09:21 AM SMOKING CESSATION NO [facility] Sep 06, 2017 09:21 AM TOBACCO OFFERRED P T MEDS (PROVIDER) [facility] Sep 06, 2017 09:21 AM TOBACCO OFFERRED S TOP SMOKING CLINIC [facility] Aug 12, 2016 10:34 AM CURRENT TOBACCO USER [facility] Jul 23, 2015 08:53 AM CURRENT TOBACCO USER [facility] Mar 27, 2014 01:28 PM CURRENT TOBACCO USER [facility] May 05, 2012 09:42 AM CURRENT TOBACCO USER [facility] Apr 23, 2011 11:03 AM CURRENT TOBACCO USER [facility] Apr 23, 2011 11:03 AM SMOKING MEDICATION INTERES T Annie Cantrell [facility] Mar 31, 2010 09:16 AM CURRENT TOBACCO USER [facility] Mar 31, 2010 09:16 AM SMOKING MEDICATION INTERES T Dr Óscar [facility] Jun 10, 2009 02:07 PM CURRENT TOBACCO USER [facility] Jun 10, 2009 02:07 PM SMOKING MEDICATION INTERES T Dr. Prince [facility] Aug 07, 2008 09:36 AM CURRENT TOBACCO USER [facility] May 18, 2008 02:38 PM CURRENT TOBACCO USER [facility] May 18, 2008 02:38 PM TOBACCO OFFERRED P T MEDS (PROVIDER) [facility] May 18, 2008 02:38 PM TOBACCO OFFERRED S TOP SMOKING CLINIC [facility] Advance Directives: All historical and current Section Date Range: From patient's date of to the date document was created. This section includes ALL of a patient's completed or amended VA Advance and Rescinded Directives. The entries below indicate that a directive exists for the patient, but an actual copy is not included with this document. The data comes from all [place] facilities. Date Advance Directives Provider Source May 03, 2019 ADVANCE DIRECTIVE DISCUSSION DEN DE LUNA [facility] Dec 28, 2012 ADVANCE DIRECTIVE CRISTI RAE [facility] Dec 28, 2012 ADVANCE DIRECTIVE DISCUSSION VIDAL RAE [facility] Dec 28, 2012 RESCINDED ADVANCE DIRECTIVE DONALD RAE [facility] June 18, 2009 ADVANCE DIRECTIVE DISCUSSION FERNY PASTRANA [facility] Encounter Notes: All associated encounter notes This section contains the clinical notes associated to the Encounter. Date/Time Encounter Note(s) Provider Source Mar 21, 2024 11:14 AM PODIATRY NOTE: LOCAL TITLE: PODIATRY CLINIC NOTE (T) STANDARD TITLE: PODIATRY NOTE DATE OF NOTE: MAR 21, 2024@11:14 ENTRY DATE: MAR 21, 2024@11:14:10 AUTHOR: LING LOUISE EXP COSIGNER: URGENCY: STATUS: COMPLETED [facility] SOAP Note SUBJECTIVE: The patient is a 78 year old MALE. Chief Complaint: dm foot care Past Medical History: Pt presents today for dm foot care. Pt states that if he has walked to far or been on the feet too long, the ball of the feet are painful, not sharp/ache, but not just sore. Bilateral pain, not just callus he believes. Only present about the last month. No injury, no increase in activity. Was thinking about changing inserts but did not. Pain relieved quickly by rest. PATIENT ALLERGIES DETAILED ALLERGIES/ADVERSE REACTIONS Type: OTHER [...] TWICE A DAY ACTIVE DIRECTED BY [facility] ([phone] EXT. [id number]) 4) ASPIRIN 81MG EC TAB TAKE ONE [...] TAKE ONE TABLET BY MOUTH ACTIVE EVERY 12 HOURS FOR RAPID VENTRICULAR HEARTBEAT 13) ROSUVASTATIN CA 40MG TAB TAKE ONE TABLET BY MOUTH ACTIVE EVERY DAY FOR CHOLESTEROL 14) SERTRALINE HCL 50MG TAB TAKE ONE TABLET BY MOUTH ACTIVE DAILY FOR MAJOR DEPRESSIVE DISORDER 15) TAMSULOSIN HCL 0.4MG CAP TAKE ONE CAPSULE BY MOUTH AT ACTIVE BEDTIME Inactive Outpatient Medications Status ========= 1) VARENICLINE 1MG TAB TAKE ONE TABLET BY MOUTH TWICE A DAY FOR SMOKING CESSATION START AFTER (WHITE) 0.5MG TABLETS ARE DONE Active Non-VA Medications Status ========= 1) Non-VA [...] LEVEL: DATE TIME HEALTH FACTOR ---- ---- 06/03/2023 13:00 DAY LIMB CARE LEVEL 2 09/09/2023 13:00 DAY LIMB CARE LEVEL 2 12/14/2023 15:00 DAY LIMB CARE LEVEL 2 ACTIVE PROBLEM Benign Prostatic Hypertrophy with 08/01/2021 Outflow Obstruction ([facility] [id number]) Difficulty cutting own toenails 12/11/2020 Vitamin D Deficiency ([facility] [id number]) 10/30/2020 Abnormal findings on diagnostic imaging 08/01/2020 of lung Pulmonary asbestosis 05/01/2020 Thoracic aorta abnormality 05/01/2020 Chronic insomnia 09/26/2019 Obstructive sleep apnea of adult 05/24/2019 Hypokalemia 09/14/2018 Diabetic neuropathy 10/11/2017 Diabetes mellitus 07/23/2015 Depressive disorder 11/12/2022 Noncompliance with Treatment (SNOMED CT 10/31/2012 [id number]) Sensorineural Hearing Loss, Bilateral 06/24/2011 (ICD-9-CM 389.18) 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 02/05/2011 Anticoagulants (ICD-9-CM V58.61) Paroxysmal atrial fibrillation (SNOMED 01/01/2015 CT [id number]) Generalized Anxiety Disorder * 06/05/2008 (ICD-9-CM 300.02) Coronary atherosclerosis (SNOMED CT 12/05/2014 126703189) Benign essential hypertension (SNOMED 07/23/2015 CT 0265460) [id number] 07/23/2015 Posttraumatic stress disorder (SNOMED 03/16/2019 CT 10576034) Depression 05/22/2008 Transient Ischemic Attack 05/22/2008 [facility] [id number] 03/16/2019 OBJECTIVE: VASCULAR : DP palpable 2/4 b/l. PT non-palpable b/l, biphasic on doppler. CFT 4 seconds to the hallux b/l. [...] Hyperkeratotic lesions Hallux limitus Anticoagulation therapy Edema Metatarsalgia - b/l Plan: Treatment today consisted of: -Patient examination and evaluation. -Debridement of nails 1-5 b/l without incident. -Debride hyperkeratotic lesions x 3. -Continue extra-depth shoes. Dispensed one pair of powersteps for trial for metatarsalgia. Consider dm shoe inserts or topical medication if no improvement. -Patient to return to clinic in 3.5 months. Response to care/Rationale for care: Patient stable, indications for regular follow-up due to loss of protective sensation. /nayan/ LING LOUISE MAINFRAME PROGRAMMER ANALYST Signed: 03/21/2024 11:37 LING LOUISE [facility]
--- OUTSIDE RECORDS SUMMARY | 2024-03-21 07:30 | XMS_ITS | Encounter Summary ---
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 Name Role Phone LAURA GRIFFIN Primary Care [...] N PLAN N Oct 16, 2012 MEDIGAP [id number] Fabian MCPHERSON PATIENT AARP MED SUPP [facility] Feb 15, 2022 PLANN [id number] Fabian MCPHERSON PATIENT AARP MED SUPP MEDIGAP PLAN N PLAN N Oct 16, 2012 PLAN N [id number] Fabian MCPHERSON PATIENT MEDICARE (WNR) MEDICARE (M) PART A May 16, 2005 PART A [id number] Fabian MCPHERSONS PATIENT MEDICARE (WNR) MEDICARE (M) PART B May 16, 2005 PART B [id number] Fabian MCPHERSONS PATIENT MEDICARE (WNR) MEDICARE (M) PART A May 16, 2005 PART A [id number] [phone] [place] PATIENT MEDICARE (WNR) MEDICARE (M) PART B May 16, 2005 PART B [id number] Fabian MCPHERSON PATIENT MEDICARE (WNR) MEDICARE (M) PART A May 16, 2005 PART A [id number] Fabian MCPHERSON PATIENT MEDICARE (WNR) MEDICARE (M) PART B May 16, 2005 PART B [id number] Fabian MCPHERSON PATIENT MEDICARE PART D (WNR) PRESCRIPT ION PART D Feb 15, 2010 PART D [id number] [phone] Fabian MCPHERSON PATIENT Selected Encounter This section includes the information on record at [place] for the Encounter. Date/Time Encounter Type Encounter Description Reason Provider Source Mar 21, 2024 11:30 AM MTMS BY EREN BERG [facility] - IND ICD-10-CM F43.10 Post-traumatic stress disorder, unspecified REGAN MEREDITH [place] Encounter Template Text not used by [place] Assessments - Encounter Diagnoses This section includes the primary and secondary diagnoses documented for the Encounter. Date/Time Primary/Secondary Diagnosis Diagnosis Name Provider Source Mar 22, 2024 10:39 AM PRIMARY Post-traumatic stress disorder, unspecified REGAN MEREDITH [facility] Mar 22, 2024 10:39 AM SECONDARY Depression, unspecified REGAN MEREDITH Mar 22, 2024 10:39 AM SECONDARY Tobacco use REGAN MEREDITH [facility] Plan of Treatment: Future Appointments (+ 6 months) and Future Tests (+/- 45 days) The Plan of Treatment section includes future care activities for the patient from all [place] treatmentfacilities. This section includes future appointments and future orders which are active, pending or scheduled. Future Appointments This section includes appointments that were scheduled to occur 6 months from the date of the Encounter, up to a maximum of 20 appointments. The data comes from all [place] treatment facilities. Appointment Date/Time Appointment Type Appointme nt Facility Name Apr 04, 2024 01:15 PM AMBULATORY - NONE [facility] Apr 06, 2024 11:45 AM AMBULATORY - MEDICINE [facility] Apr 18, 2024 11:30 AM AMBULATORY - PSYCHIATRY [facility] Apr 25, 2024 01:00 PM AMBULATORY - NONE [facility] Jun 02, 2024 11:00 AM AMBULATORY - PSYCHIATRY CL [facility] Jun 02, 2024 11:30 AM AMBULATORY - NONE [facility] Jun 02, 2024 11:45 AM AMBULATORY - NONE [facility] June 21, 2024 10:30 AM AMBULATORY - NONE [facility] June 28, 2024 11:30 AM AMBULATORY - SURGERY [facility] Jul 26, 2024 11:00 AM AMBULATORY - PSYCHIATRY CL [facility] Lab Results: +/- 30 days of the encounter This section includes the Chemistry and Hematology Lab Results on record with [facility] for the patient. Radiology Reports and Pathology Reports are provided separately, in subsequent sections. Lab Results This section contains the Chemistry/Hematology Results that were resulted 30 days before or 30 daysafter the date of the Encounter. Date/Time Source Result Type Result - Unit Interpretation Reference Range Specimen Type Comment Apr 04, 2024 01:[address] [facility] CREATININE (W EGFR) PLASMA Specimen Type: PLASMA [...] Apr 04, 2024 01:05 PM Reporting Lab: [address] [address] Performing Lab: [address] [address] CREATININE 1.0 mg/dL 0.7-1.3 EGFR (CALCULATED) 78.0 mL/min Apr 04, 2024 01:[address] [facility] HEPATIC FUNCTION PANEL PLASMA Specimen Type: PLASMA [...] Apr 04, 2024 01:05 PM Reporting Lab: [address] [address] Performing Lab: [address] [address] ALBUMIN 3.7 g/dL 3.5-4.8 ALKALINE PHOSPHATASE 89 U/L 40-150 ALT/SGPT 13 U/L <55 AST/SGOT 17 U/L 10-40 BILIRUBIN,DIRECT 0.2 mg/dL <0.5 PROTEIN, TOTAL 6.8 g/dL 6.4-8.3 BILIRUBIN, TOTAL 0.3 mg/dL 0.2-1.2 Apr 04, 2024 01:[address] [facility] CBC BLOOD Specimen Type: BLOOD No comment entered. Ordering Provider: AL MOJICA Report Released Date/Time: Apr 04, 2024 01:05 PM Reporting Lab: [address] [address] Performing Lab: [address] [address] WBC COUNT 6.8 10*3/uL 3.6-11.0 RBC COUNT [...] and tobacco- related health factors from the [place] facility where the Encounter took place. Current Smoking Status This section includes the most current smoking, or tobacco-related health factor, from the [place] facility where the Encounter took place. Date/Time Current Smoking Status Comment Facil ity Jun 14, 2023 11:00 AM VA-TOBACCO USER EVERY DAY [facility] Tobacco Use History This section includes a history of the smoking, or tobacco-related health factors, that were collected on or before the date of the Encounter. The data comes from the [place] facility where the Encounter took place. Date/Time Smoking Status/Tobacco Use Comment F acility Jun 14, 2023 11:00 AM VA-TOBACCO USE 30 YEARS OR MORE [facility] Jun 14, 2023 11:00 AM VA-TOBACCO USE ADVICE [facility] Jun 14, 2023 11:00 AM VA-TOBACCO USE CARGO AGENT NO [facility] Jun 14, 2023 11:00 AM VA-TOBACCO USE MED NO [facility] Jun 14, 2023 11:00 AM VA-TOBACCO USER EVERY DAY [facility] May 01, 2022 11:00 AM VA-TOBACCO DOESNT USE WI 30 MIN WAKEUP [facility] May 01, 2022 11:00 AM VA-TOBACCO USE 30 YEARS OR MORE [facility] May 01, 2022 11:00 AM VA-TOBACCO USE ADVICE [facility] May 01, 2022 11:00 AM VA-TOBACCO USE CARGO AGENT NO [facility] May 01, 2022 11:00 [...] May 09, 2021 02:30 PM VA-TOBACCO USE CARGO AGENT YES [facility] May 09, 2021 02:30 [...] Apr 02, 2020 09:00 AM VA-TOBACCO USE CARGO AGENT NO [facility] Apr 02, 2020 09:00 AM VA-TOBACCO USE MED NO [facility] Apr 02, 2020 09:00 AM VA-TOBACCO USER EVERY DAY [facility] Sep 14, 2018 10:16 AM VA-TOBACCO DOESNT USE WI 30 MIN WAKEUP [facility] Sep 14, 2018 10:16 AM VA-TOBACCO USE 30 YEARS OR MORE [facility] Sep 14, 2018 10:16 AM VA-TOBACCO USE ADVICE [facility] Sep 14, 2018 10:16 AM VA-TOBACCO USE CARGO AGENT NO [facility] Sep 14, 2018 10:16 AM VA-TOBACCO USE MED NOTIFY PROVID ER [facility] Sep 14, 2018 10:16 AM VA-TOBACCO USER EVERY DAY [facility] Sep 10, 2017 03:41 PM VA-TOBACCO DOESNT USE WI 30 MIN WAKEUP [facility] Sep 10, 2017 03:41 PM VA-TOBACCO USE 30 YEARS OR MORE [facility] Sep 10, 2017 03:41 PM VA-TOBACCO USE ADVICE [facility] Sep 10, 2017 03:41 PM VA-TOBACCO USE CARGO AGENT YES [facility] Sep 10, 2017 03:41 PM VA-TOBACCO USE MED NOTIFY PROVID ER [facility] Sep 10, 2017 03:41 PM VA-TOBACCO USER EVERY DAY [facility] Sep 06, 2017 09:21 AM CURRENT TOBACCO USER [facility] Sep 06, 2017 09:21 AM SMOKING CESSATION NO [facility] Sep 06, 2017 09:21 AM TOBACCO OFFERRED P T MEDS (PROVIDER) [facility] Sep 06, 2017 09:21 AM TOBACCO OFFERRED S [facility] Aug 12, 2016 10:34 AM CURRENT TOBACCO USER [facility] Jul 23, 2015 08:53 AM CURRENT TOBACCO USER [facility] Mar 27, 2014 01:28 PM CURRENT TOBACCO USER [facility] May 05, 2012 09:42 AM CURRENT TOBACCO USER [facility] Apr 23, 2011 11:03 AM CURRENT TOBACCO USER [facility] Apr 23, 2011 11:03 AM SMOKING MEDICATION INTERES T Annie [facility] Mar 31, 2010 09:16 AM CURRENT TOBACCO USER [facility] Mar 31, 2010 09:16 AM SMOKING MEDICATION INTERES T Dr Óscar [facility] Jun 10, 2009 02:07 PM CURRENT TOBACCO USER [facility] Jun 10, 2009 02:07 PM SMOKING MEDICATION INTERES T Dr. Prince [facility] Aug 07, 2008 09:36 AM CURRENT TOBACCO USER [facility] May 18, 2008 02:38 PM CURRENT TOBACCO USER [facility] May 18, 2008 02:38 PM TOBACCO OFFERRED P T MEDS (PROVIDER) [facility] May 18, 2008 02:38 PM TOBACCO OFFERRED S [facility] Advance Directives: All historical and current Section Date Range: From patient's date of to the date document was created. This section includes ALL of a patient's completed or amended [place] Advance and Rescinded Directives. The entries below indicate that a directive exists for the patient, but an actual copy is not included with this document. The data comes from all [place] facilities. Date Advance Directives Provider Source May 03, 2019 ADVANCE DIRECTIVE DISCUSSION DEN DE LUNA [facility] Dec 28, 2012 ADVANCE DIRECTIVE CRISTI RAE [facility] Dec 28, 2012 ADVANCE DIRECTIVE DISCUSSION VIDAL RAE [facility] Dec 28, 2012 RESCINDED ADVANCE DIRECTIVE DONALD RAE [facility] June 18, 2009 ADVANCE DIRECTIVE DISCUSSION FERNY PASTRANA [facility] Encounter Notes: All associated encounter notes This section contains the clinical notes associated to the Encounter. Date/Time Encounter Note(s) Provider Source Mar 21, 2024 11:39 AM PRIMARY CARE NURSI JOSE RAMON NOTE: LOCAL TITLE: OUTPATIENT NURSING INTAKE NOTE (T) STANDARD TITLE: PRIMARY CARE NURSING NOTE DATE OF NOTE: MAR 21, 2024@11:39 ENTRY DATE: MAR 21, 2024@11:39:59 AUTHOR: KINSEY IVAN EXP COSIGNER: URGENCY: STATUS: COMPLETED Hemoglobin A1C Results: [...] problems with drugs and/or alcohol? No 5. [facility] pocket card was provided to patient. No/patient declined Last Whole Health MAP ([facility] [place] [place] [employer] [place]): 12/14/2023 Personal Health Plan [place] (MAP) family and the dog Clinical Reminders Activity Depression Screening: Perform PHQ-2 A PHQ-2 screen was performed. The score was 0 which is a negative screen for depression. Over the past two weeks, how often have you been bothered by the following problems? 1. Little interest or pleasure in doing things Not at all 2. Feeling down, depressed, or hopeless Not at all /nayan/ KINSEY IVAN LICENSED PRACTICAL NURSE Signed: 03/21/2024 11:40 KINSEY IVAN [facility] Mar 21, 2024 11:18 AM PSYCHIATRY NOTE: LOCAL TITLE: [facility] PSYCHIATRY NOTE (T) STANDARD TITLE: PSYCHIATRY NOTE DATE OF NOTE: MAR 21, 2024@11:18 ENTRY DATE: MAR 21, 2024@11:18:50 AUTHOR: SAPNA MEREDITH COSIGNER: URGENCY: STATUS: COMPLETED PSYCHIATRIC EVALUATION NOTE Time in: 1138 Time out: 1200 Time spent: 22 min TS is a 78yom w/ a MH h/o PTSD and MDD, tobacco use DO. Chart and available information reviewed. CC: was in the hospital HPI: Vlad was last spoken with on 02/01/24 where he reported on recent travels with his daughter. Daughter continued to encourage moving closer to her, in [place], although he maintained his independence well. I can't live any [...] life concern with disease progression, and he felt this was an adjustment. Most of the time endorsing adequate duration of rest. Some dog sitting for daughter recently, and me Jim got along fine . Denied concerns for mood at this time; I'm not having any problems.. doing a little soul searching on some other things.. overall, I'm doing well, I'm happy where I am . Planning for 2024, having had a few calls about this recently. Will monitor. seen for F2F appt as planned. Vlad initiated session today with review of his recent hospitalization, and provision of discharge paperwork to be given to his PACT provider. He confirmed having made copies of this paperwork for his records. Discussed his recent hospitalization for heart failure, stating he was having some swelling in the legs and I was fine breathing, but then I woke up at 0300 and I could not breathe . He was spending time with his daughter, and she initiated emergency response; she did okay.. now, I would say, I'm doing pretty well . Discussed medication changes, with discontinuation of amlodipine and initiation of spironolactone and SGLT-2 inhibitor since; information and supply on hand relayed to PACT. Mood is not too bad, sleep stinks.. it seems like anymore, that I go to bed at [id number] and around 0300 I'm awake and can't always get back to sleep . This is seemingly without cause or attributable influence, although stated it might be restless sleep, when I go to bed, I'm laying the normal way, and I wake up crossway in the bed . Denied dreams or tension on awakening. This is more often than not, and for the most part, it's just been since I was in the hospital.. there's nothing to irritate me, so I've been fine . He is using both sleep aid medications and I sometimes will take a second amitriptyline if I can't get back to sleep . At times able to get another 2-3 hours; denied grogginess on awakening. He denied additional concerns, only that his energy is in deficit when sleep is compromised. We discussed ability to titrate SSRI for perceptions of sleep and mood benefit, although he will contemplate, in light of other changes and not wanting to complicate his regimen in the short course since discharge. I am not getting tired in the middle of the day or anything, I'm okay.. they said it was a very quick escalation, but the fluid is staying off . He is comfortable at this time, and we resolved to monitor while he engages with PACT on regimen changes. Denied SI/HI. SUBSTANCE USE HX: Nicotine- baseline between 0.25-0.5ppd. NRT failed previously. Bupropion trial w/ plateau of effect and inability to facilitate goal. Previously had planned for varenicline retrial, although deferring now. Confirmed recent use as 0.5ppd; yes, I am thinking about quitting.. I guess the motivation is less than it should be given recent hospital stay. Requested NRT patch only, and we will monitor step-2 to 3 taper. Stated intent to use PRN supports as well, reviewed. Alcohol- denied Illicit- denied PSYCHIATRIC MEDICATION HISTORY: According to CPRS and [employer] remote data of [facility] outpatient Rx, the pt has a h/o HYDROXYZINE (2008); MIRTAZAPINE (2019); PAROXETINE (non-VA- 2009-01: that probably helped me be a little [...] melatonin use noted. VARENICLINE (stopped d/t recall, retrial was not pursued). ALLERGIES/ADVERSE REACTIONS Type: OTHER [...] TWICE A DAY ACTIVE DIRECTED BY [facility] ([phone] EXT. [phone]) 4) ASPIRIN 81MG EC TAB TAKE ONE [...] AT ACTIVE BEDTIME Inactive Outpatient Medications Status 1) VARENICLINE 1MG TAB TAKE ONE TABLET [...] TSH: 3.274 (06/07/23 08:36) PLASMA VITALS: T: 96.5 F [35.8 C] (03/21/2024 11:33) P: 69 (03/21/2024 11:33) R: 16 (03/21/2024 11:33) BP: 139/63 (03/21/2024 11:33) W: 157 lb [71.21 kg] (03/21/2024 11:33) BMI: 24.6 Mental Status Exam: Saul: 78yom who appears stated age, dressed in casual attire, graying hair, orients to interviewer with good eye contact, glasses, ambulates without assistance, seated comfortably Level of Consciousness: A&O x4 Psychomotor Activity: slow Speech: regular volume, rate and tone Mood: okay Affect: appropriate Behavior: cooperative Thought Process: coherent, [...] friends Connectedness to community, school, family, friends [place] skills (such as problem-solving, conflict resolution, anger management, impulse control, etc.) Access to appropriate medical and mental health care Violence assessment completed: yes Prior history of violence: denied The risk of violence towards others is considered: low made no comments during our conversation that were concerning and/or would suggest that the is at elevated imminent risk of harm to self or others ASSESSMENT: [facility] with PTSD, h/o MDD, and tobacco use [...] perceptions of benefit relative to prior trial. Have discussed options for consideration, resolving to monitor. 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 [place] prescription medications: Patient verifies that they are in receipt of a complete and accurate list of medications. Prescription medications from another source: Patient verifies that they are in receipt of a complete and accurate list of medications. Over the counter medications, vitamins, herbals, and nutritional supplements: Patient verifies that they are in receipt of a complete and accurate list of medications. /nayan/ SAPNA MEREDITH CLINICAL GROVE WORKER Signed: 03/22/2024 10:39 SAPNA MEREDITH [facility]
--- OUTSIDE RECORDS SUMMARY | 2024-04-18 07:30 | XMS_ITS | Encounter Summary ---
Author Name [facility] ([place]) Organization [facility] Address [address] [place] [address] Care Team Providers Care Park Services Specialist Name Role Phone LAURA GRIFFIN Primary Care [...] N PLAN N Oct 16, 2012 MEDIGAP [id number] [phone] Fabian MCPHERSON PATIENT AARP MED SUPP [facility] Feb 15, 2022 PLANN [id number] Fabian MCPHERSON PATIENT AARP MED SUPP MEDIGAP PLAN N PLAN N Oct 16, 2012 PLAN N [id number] [phone] Fabian MCPHERSON PATIENT MEDICARE (WNR) MEDICARE (M) PART A May 16, 2005 PART A [id number] Fabian MCPHERSONS PATIENT MEDICARE (WNR) MEDICARE (M) PART B May 16, 2005 PART B [id number] Fabian MCPHERSONS PATIENT MEDICARE (WNR) MEDICARE (M) PART A May 16, 2005 PART A [id number] [phone] [place] PATIENT MEDICARE (WNR) MEDICARE (M) PART B May 16, 2005 PART B [id number] Fabian MCPHERSON PATIENT MEDICARE (WNR) MEDICARE (M) PART A May 16, 2005 PART A [id number] Fabian MCPHERSON PATIENT MEDICARE (WNR) MEDICARE (M) PART B May 16, 2005 PART B [id number] Fabian MCPHERSON PATIENT MEDICARE PART D (WNR) PRESCRIPT ION PART D Feb 15, 2010 PART D [id number] [phone] Fabian MCPHERSON PATIENT Selected Encounter This section includes the information on record at [place] for the Encounter. Date/Time Encounter Type Encounter Description Reason Provider Source Apr 18, 2024 11:30 AM MTMS BY EREN BERG [facility] - IND ICD-10-CM F43.10 Post-traumatic stress disorder, unspecified REGAN MEREDITH [place] Encounter Template Text not used by [place] Assessments - Encounter Diagnoses This section includes the primary and secondary diagnoses documented for the Encounter. Date/Time Primary/Secondary Diagnosis Diagnosis Name Provider Source Apr 18, 2024 01:47 PM PRIMARY Post-traumatic stress disorder, unspecified REGAN MEREDITH CB Apr 18, 2024 01:47 PM SECONDARY Insomnia, unspecified REGAN MEREDITH CB Apr 18, 2024 01:47 PM SECONDARY Tobacco use REGAN MEREDITH [facility] Plan of Treatment: Future Appointments (+ 6 months) and Future Tests (+/- 45 days) The Plan of Treatment section includes future care activities for the patient from all [place] treatmentfacilities. This section includes future appointments and future orders which are active, pending or scheduled. Future Appointments This section includes appointments that were scheduled to occur 6 months from the date of the Encounter, up to a maximum of 20 appointments. The data comes from all [place] treatment facilities. Appointment Date/Time Appointment Type Appointme nt Facility Name Apr 25, 2024 01:00 PM AMBULATORY - NONE [facility] Jun 02, 2024 11:00 AM AMBULATORY - PSYCHIATRY [facility] Jun 02, 2024 11:30 AM [facility]ORY - NONE [facility] Jun 02, 2024 11:45 AM AMBULATORY - NONE [facility] June 21, 2024 10:30 AM AMBULATORY - NONE JADIEL Peres [facility] June 28, 2024 11:30 AM AMBULATORY - SURGERY [facility] Jul 26, 2024 11:00 AM AMBULATORY - PSYCHIATRY [facility] Sep 20, 2024 11:00 AM AMBULATORY - PSYCHIATRY CL [facility] Oct 12, 2024 10:30 AM AMBULATORY - MEDICINE [facility] Oct 19, 2024 03:00 PM AMBULATORY - SURGERY [facility] Lab Results: +/- 30 days of the encounter This section includes the Chemistry and Hematology Lab Results on record with [place] for the patient. Radiology Reports and Pathology Reports are provided separately, in subsequent sections. Lab Results This section contains the Chemistry/Hematology Results that were resulted 30 days before or 30 daysafter the date of the Encounter. Date/Time Source Result Type Result - Unit Interpretation Reference Range Specimen Type Comment Apr 04, 2024 01:14 PM [facility] CREATININE (W EGFR) PLASMA Specimen Type: [...] Apr 04, 2024 01:05 PM Reporting Lab: [address] [address] Performing Lab: [address] [address] CREATININE 1.0 mg/dL 0.7-1.3 EGFR (CALCULATED) 78.0 mL/min Apr 04, 2024 01:14 PM [facility] HEPATIC FUNCTION PANEL PLASMA Specimen Type: [...] Apr 04, 2024 01:05 PM Reporting Lab: [address] [address] Performing Lab: [address] [address] ALBUMIN 3.7 g/dL 3.5-4.8 ALKALINE PHOSPHATASE 89 U/L 40-150 ALT/SGPT 13 U/L <55 AST/SGOT 17 U/L 10-40 BILIRUBIN,DIRECT 0.2 mg/dL <0.5 PROTEIN, TOTAL 6.8 g/dL 6.4-8.3 BILIRUBIN, TOTAL 0.3 mg/dL 0.2-1.2 Apr 04, 2024 01:14 PM [facility] CBC BLOOD Specimen Type: BLOOD No comment entered. Ordering Provider: AL MOJICA Report Released Date/Time: Apr 04, 2024 01:05 PM Reporting Lab: [address] [address] Performing Lab: [address] [address] WBC COUNT 6.8 10*3/uL 3.6-11.0 RBC COUNT [...] and tobacco- related health factors from the [place] facility where the Encounter took place. Current Smoking Status This section includes the most current smoking, or tobacco-related health factor, from the [place] facility where the Encounter took place. Date/Time Current Smoking Status Comment Facil ity Jun 14, 2023 11:00 AM VA-TOBACCO USER EVERY DAY [facility] Tobacco Use History This section includes a history of the smoking, or tobacco-related health factors, that were collected on or before the date of the Encounter. The data comes from the [place] facility where the Encounter took place. 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 [facility] Jun 14, 2023 11:00 AM VA-TOBACCO USE MED NO [facility] Jun 14, 2023 11:00 AM VA-TOBACCO USER EVERY DAY [facility] May 01, 2022 11:00 AM VA-TOBACCO DOESNT USE WI 30 MIN WAKEUP [facility] May 01, 2022 11:00 AM VA-TOBACCO USE 30 YEARS OR MORE [facility] May 01, 2022 11:00 AM VA-TOBACCO USE ADVICE [facility] May 01, 2022 11:00 AM 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 [facility] May 01, 2022 11:00 AM VA-TOBACCO USE MED NO [facility] May 01, 2022 11:00 AM VA-TOBACCO USER EVERY DAY [facility] May 09, 2021 02:30 PM VA-TOBACCO DOESNT USE WI 30 MIN WAKEUP [facility] May 09, 2021 02:30 PM VA-TOBACCO USE 30 YEARS OR MORE [facility] May 09, 2021 02:30 PM VA-TOBACCO USE ADVICE [facility] May 09, 2021 02:30 PM 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 [facility] May 09, 2021 [...] Apr 02, 2020 09:00 AM 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 [facility] Apr 02, 2020 09:00 AM VA-TOBACCO USE MED NO [facility] Apr 02, 2020 09:00 AM VA-TOBACCO USER EVERY DAY [facility] Sep 14, 2018 10:16 AM VA-TOBACCO DOESNT USE WI 30 MIN WAKEUP [facility] Sep 14, 2018 10:16 AM VA-TOBACCO USE 30 YEARS OR MORE [facility] Sep 14, 2018 10:16 AM VA-TOBACCO USE ADVICE [facility] Sep 14, 2018 10:16 AM 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 [facility] Sep 14, 2018 10:16 AM VA-TOBACCO USE MED NOTIFY PROVID ER [facility] Sep 14, 2018 10:16 AM VA-TOBACCO USER EVERY DAY [facility] Sep 10, 2017 03:41 PM VA-TOBACCO DOESNT USE WI 30 MIN WAKEUP [facility] Sep 10, 2017 03:41 PM VA-TOBACCO USE 30 YEARS OR MORE [facility] Sep 10, 2017 03:41 PM VA-TOBACCO USE ADVICE [facility] Sep 10, 2017 03:41 PM 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 [facility] Sep 10, 2017 03:41 PM VA-TOBACCO USE MED NOTIFY PROVID ER [facility] Sep 10, 2017 03:41 PM VA-TOBACCO USER EVERY DAY [facility] Sep 06, 2017 09:21 AM CURRENT TOBACCO USER [facility] Sep 06, 2017 09:21 AM SMOKING CESSATION NO [facility] Sep 06, 2017 09:21 AM TOBACCO OFFERRED P T MEDS (PROVIDER) [facility] Sep 06, 2017 09:21 AM TOBACCO OFFERRED S TOP SMOKING CLINIC [facility] Aug 12, 2016 10:34 AM CURRENT TOBACCO USER [facility] Jul 23, 2015 08:53 AM CURRENT TOBACCO USER [facility] Mar 27, 2014 01:28 PM CURRENT TOBACCO USER [facility] May 05, 2012 09:42 AM CURRENT TOBACCO USER [facility] Apr 23, 2011 11:03 AM CURRENT TOBACCO USER [facility] Apr 23, 2011 11:03 AM SMOKING MEDICATION INTERES T Annie MEDINA [facility] Mar 31, 2010 09:16 AM CURRENT TOBACCO USER [facility] Mar 31, 2010 09:16 AM SMOKING MEDICATION INTERES T Dr Óscar [facility] Jun 10, 2009 02:07 PM CURRENT TOBACCO USER [facility] Jun 10, 2009 02:07 PM SMOKING MEDICATION INTERES T Dr. Prince [facility] Aug 07, 2008 09:36 AM CURRENT TOBACCO USER [facility] May 18, 2008 02:38 PM CURRENT TOBACCO USER [facility] May 18, 2008 02:38 PM TOBACCO OFFERRED P T MEDS (PROVIDER) [facility] May 18, 2008 02:38 PM TOBACCO OFFERRED S TOP SMOKING CLINIC [facility] Advance Directives: All historical and current Section Date Range: From patient's date of to the date document was created. This section includes ALL of a patient's completed or amended [place] Advance and Rescinded Directives. The entries below indicate that a directive exists for the patient, but an actual copy is not included with this document. The data comes from all [place] facilities. Date Advance Directives Provider Source May 03, 2019 ADVANCE DIRECTIVE DISCUSSION DEN DE LUNA [facility] Dec 28, 2012 ADVANCE DIRECTIVE CRISTI RAE [facility] Dec 28, 2012 ADVANCE DIRECTIVE DISCUSSION VIDAL RAE [facility] Dec 28, 2012 RESCINDED ADVANCE DIRECTIVE DONALD RAE [facility] June 18, 2009 ADVANCE DIRECTIVE DISCUSSION FERNY PASTRANA [facility] Radiology Reports: +/- 30 days of the encounter Radiology Reports For cases when an order for radiology services may have been completed prior to the date of the Encounter, the report list includes the Radiology Reports that were completed up to 30 days before dateof the Encounter. For cases when an order for radiology services may have been completed after the date of the Encounter, the report list also includes the Radiology Reports that were completed up to30 days after date of the Encounter. The data comes from all [place] treatment facilities. Date/Time Radiology Report Provider Source Apr 25, 2024 12:28 PM LDCT LUNG CANCER S CREENING: CAROL MCPHERSON [id number] -[id number] M Exm Date: APR 25, 2024@12:28 Req Phys: CRISTI BISHOP Loc: [facility] LUNG CANCER SCREENING ( Img Loc: W CT SCAN Service: [place] [address] (Case [id number] COMPLETE)LDCT LUNG CANCER SCREENING (CT Detailed) CPT:60691 Reason for Study: Initial LCS. 0.75ppd x 50 years. Clinical History: Please coordinate with existing [facility] appt [address] [place] [id number] Report Status: Verified Date Reported: MAY 03, 2024 Date Verified: MAY 03, 2024 Insole Buffer E-Sig:/ES/JOSE A LOERA Report: EXAM: LDCT LUNG CANCER SCREENING ADDITIONAL HISTORY: LCS. 0.75ppd x 50 years. PROTOCOL: Screening protocol, low dose, non-ECG gated, non-contrast CT chest. Additional coronal and sagittal reconstructions. MIP reconstructions were reviewed. Secondary computer-aided detection post-processing used. COMMENTS: This exam is performed without intravenous contrast as was requested. Please note that the absence of intravenous contrast material does limit the sensitivity and specificity of this examination. In particular solid organ assessment for neoplasm is significantly limited. Vascular abnormalities such as dissection, occlusions, infarcts and thrombus may also go undetected. Finally, low dose CT technique contributes to diagnostic limitation. DOSE PARAMETERS: DLP: 126.4 mGy*cm COMPARISON: Lung screening CT 09/10/2021 INDEX LUNG NODULE: Location: Left lower lobe, pleural-based Image: 181 Series: 202 Density: Solid Solid diameter (average): 7 mm Change: Unchanged from 09/10/2021 OTHER NODULES: Automated ROIs generated by CR2 CT on 2024-04-25. Automatically found reference lung nodules are detailed below: No findings. RIGHT LUNG: -Unchanged 2 mm right apical nodule, image 44 of series 202. LEFT LUNG: -Unchanged 5 mm pleural-based left lower lobe nodule, image 202. OTHER LUNG/AIRWAY FINDINGS: Central airways are patent. Mild bilateral lower lobe bronchial wall thickening. Dependent atelectatic changes are seen in the bilateral lower lobes. Faint linear atelectasis versus scarring again seen in the lower lobes and lingula. Calcified granulomas in the right upper lobe, left upper lobe and left lower lobe. EMPHYSEMA: Moderate. PLEURA: Calcified bilateral pleural plaques again seen, predominantly posteriorly adjacent to the lower lobes. There is no pleural effusion or pneumothorax. NECK, THORACIC INLET, AXILLAE: Within the limitations of this unenhanced scan, included portions of the thyroid lobes demonstrate no actionable nodule. Axillary lymph nodes are not enlarged by CT size criteria. MEDIASTINUM/SAMANTHA: Surgical clips in the mediastinum again seen. Mediastinal lymph nodes are not pathologically enlarged by CT size criteria, within the limitations of this unenhanced scan. Hilar lymph nodes are poorly evaluated in the absence of IV contrast. The ascending thoracic aorta is ectatic to 3.9 cm, unchanged. The main pulmonary artery is not enlarged descending thoracic aorta measures approximately 2.9 cm, unchanged. Heavy coronary artery calcifications are seen. The esophagus is mildly patulous in appearance. There is a small hiatal hernia. UPPER ABDOMEN: This study is not tailored for evaluation of the subdiaphragmatic structures. Layering calcified gallstones identified. Bilateral renal vascular calcifications, with suspicion for nonobstructing bilateral millimetric renal calculi. BONES AND SOFT TISSUES: Multilevel discogenic degenerative changes of the thoracic spine identified. Anterior wedging of the T6, T7, T10, and T11 vertebral bodies has not significantly changed from prior. Median sternotomy wires again identified. Mild bilateral gynecomastia. Impression: 1. Compared with 09/10/2021, several bilateral pulmonary nodules are unchanged. Per LUNG RADS criteria, follow-up low-dose chest CT in 12 months is recommended. 2. Cholelithiasis. Possible nonobstructing bilateral renal calculi versus vascular calcifications. 3. Unchanged ectasia of the ascending thoracic aorta up to 3.9 cm. 4. Additional chronic findings, as above. LUNG-RADS [v2022]: 2: Benign RECOMMENDATION: Follow-up annual low-dose chest CT in 12 months. OTHER SIGNIFICANT FINDINGS: Please see above in IMPRESSION. LUNG-RADS MODIFIER: S Finalized by Jose A Loera MD On 05/03/2024 9:24 AM Primary Diagnostic Code: LUNGRADS 2: BENIGN APPEARANCE OR BEHAVIOR Secondary Diagnostic Codes: LUNGRADS S: SIGNIFICANT INCIDENTAL FINDING Primary Interpreting Staff: JOSE A LOERA, RADIOLOGIST (Insole Buffer) /JOSE A TARIQ [facility] Encounter Notes: All associated encounter notes This section contains the clinical notes associated to the Encounter. Date/Time Encounter Note(s) Provider Source Apr 18, 2024 02:55 PM TREATMENT PLAN INTERDISCIPLINARY NOTE: LOCAL TITLE: BEHAVIORAL HEALTH INTERDISCIPLINARY TREATMENT PLAN STANDARD TITLE: TREATMENT PLAN INTERDISCIPLINARY NOTE DATE OF NOTE: APR 18, 2024@14:55:23 ENTRY DATE: APR 18, 2024@14:56:19 AUTHOR: SAPNA MEREIDTH EXP COSIGNER: URGENCY: STATUS: COMPLETED BEHAVIORAL <BEHAVIORAL HEALTH INTERDISCIPLINARY TREATMENT PLAN> - Apr, @ 02:55PM Visit Date: Apr, @ 11:30 - [facility] OXYGRAPH OPERATOR: SAPNA MEREDITH / [facility] PRESENTING PROBLEM: PTSD; MDD TREATMENT PLAN: Problem: Problem/Need: [DEPRESSION]: I am experiencing depressive symptoms that include: anhedonia, low energy, isolation, sadness. Status: ACTIVE Goal: I want to decrease depression and improve mood. Status: ACTIVE Objective: I will engage more frequently in pleasant activities. Progress will be measured through self report of engagement in 2 activities at minimum per week over next 6 months and decrease of PCL by 5 points over next 6 months Status: ACTIVE Projected Target: 01/10/2023 PHQ-2: 03/21/2024 @ 11:30 Depression=0 C-SSRS: 11/24/2023 @ 10:30 Ques1=2 Ques2=2 Ques7=2 Intervention: [PSYCHOTHERAPY] My provider will work with me to achieve this goal and objective through individual therapy Status: ACTIVE Discipline: Outpatient Mental Health Time Frame: One time every 2 months for 6 months Providers: SONI XIONG: CLINICAL PSYCHOLOGIST Comments: continues in supportive therapy. 09/03/2023 (by SONI XIONG) Intervention: [MEDICATION MANAGEMENT] My provider will prescribe medication to manage my symptoms and monitor my response. Status: ACTIVE Discipline: Outpatient Mental Health Time Frame: One time every 2 months for 6 months Providers: SAPNA MEREDITH: CLINICAL SHIPPING AND RECEIVING SPECIALIST Comments: reports med compliance with benefit and keeps appointments with [facility] prescriber 09/03/2023 (by SONI XIONG) DISCIPLINE: Outpatient Mental Health Entered Treatment: 01/04/2023 @ 10:23AM Review Date: 08/29/2024 Anticipated Discharge: None REFERRED NEEDS OR GOALS: Description: All Medical Problems will be referred to [facility]'s PCP for evaluation and treatment. Created: 04/18/2024 (by SAPNA MEREDITH) Status: N/A PATIENT ACTION: PATIENT AGREED TO PLAN DISCUSSED. INTERDISCIPLINARY TEAM: SONI XIONG: CLINICAL PSYCHOLOGIST SAPNA MEREDITH: CLINICAL SHIPPING AND RECEIVING SPECIALIST KINSEY IVAN: LICENSED PRACTICAL NURSE PARTICIPATION COMMENTS: Reviewed medication management comprehensively with , to include education on options for consideration, mechanism, practice guideline recommendations, expectations with use and monitoring. [facility] collaborated on agent selection concordant with their goals for engagement. COMMUNICATION: Relevant treatment options, including evidence-based interventions, were considered and discussed with the [place]. YES A copy of the treatment plan was given to the . NO Risks, benefits, and potential complications were discussed with the [place]. NO /nayan/ SAPNA MEREDITH CLINICAL SHIPPING AND RECEIVING SPECIALIST Signed: 04/18/2024 14:56 Receipt Acknowledged By: 04/18/2024 15:46 /nayan/ SONI XIONG CLINICAL PSYCHOLOGIST 04/24/2024 08:06 /es/ KINSEY IVAN LICENSED PRACTICAL NURSE SAPNA MEREDITH [facility] Apr 18, 2024 01:47 PM ADDENDUM: LOCAL TITLE: Addendum STANDARD TITLE: ADDENDUM DATE OF NOTE: APR 18, 2024@13:47:53 ENTRY DATE: APR 18, 2024@13:47:54 AUTHOR: SAPNA MEREDITH EXP COSIGNER: URGENCY: STATUS: COMPLETED requesting renewal on the below order. PACT provider alerted. --> RANOLAZINE 500MG SA TAB Qty: 180 for 90 ACTIVE Issu:12-18-24 days Sig: TAKE ONE TABLET BY MOUTH Refills: 0 Last:02-02-24 EVERY 12 HOURS FOR RAPID VENTRICULAR Expr:05-02-24 HEARTBEAT /nayan/ SAPNA MEREDITH CLINICAL SHIPPING AND RECEIVING SPECIALIST Signed: 04/18/2024 13:48 Receipt Acknowledged By: 04/18/2024 15:51 /es/ LAURA GRIFFIN NURSE PRACTITIONER --- Original Document --- 04/18/24 [facility] PSYCHIATRY NOTE (T): PSYCHIATRIC EVALUATION NOTE Time in: 1127 Time out: 1151 Time spent: 24 min TS is a [...] in video to home appointment: denied CC: I'm doing fine, no problems HPI: Vlad was last spoken with on 03/21/24 where he reported on recent hospitalization for heart failure, and subsequent discharge. Discussed medication changes, with discontinuation of amlodipine and initiation of spironolactone and SGLT-2 inhibitor since; information and supply on hand relayed to PACT. Mood is not too bad, sleep stinks.. it seems like anymore, that I go to bed at [id number] and around 0300 I'm awake and can't [...] denied additional concerns, only that his energy was in deficit when sleep is compromised. We discussed SSRI titration targeting sleep and mood, although he will contemplate, in light of other changes and not wanting to complicate his regimen. seen for F appt as planned. Vlad reported medication use as well, denying change from previously reported adherence to regimen. He continues to review SSRI use and sleep supports with tolerability and benefit perceptions. He has received [place] supply of post-discharge medications and denied issues or concerns with this. Feeling generally that I'm doing fine, no problems.. 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 It's fine, he likes it here . Jim will be spending about a week or so with him. He does not have much for travel plans otherwise, as he declined to go to [place] with his daughter and will likely be watching Jim again; he's a great dog . Mood has been pretty much okay.. I do feel that it is supportive, the new medication.. it hasn't bothered me at all . Denied negative thought content. His sleep could have been better lately, but tomorrow it will be three years since my .. but that might be impacting me . Some increasing restlessness here recently. His use of sleep aides is without change; citing tolerability and benefit. I feel okay, I'm able to keep going . Decent concentration for his requirements. Rare episodes of short-term recall issues, otherwise denying concerns. Has denied swelling or SOB since hospital stay. Orthostasis seemingly limited to getting out of bed; finds this managable, and taking precautions appropriately. We resolved to monitor. Denied SI/HI. SUBSTANCE USE HX: Nicotine- baseline between 0.25-0.5ppd. NRT failed previously. MAT use previously. Confirmed recent use as 0.5ppd. Has NRT patch only, and we will monitor step-2 to 3 taper, which is his desire. Stated intent to use PRN supports as well. I have not had a chance to get started on that.. I just get so busy . Will continue to encourage. Alcohol- denied Illicit- denied PSYCHIATRIC MEDICATION HISTORY: According to [employer] and [employer] remote data of [place] outpatient Rx, the pt has a h/o [...] TWICE A DAY ACTIVE DIRECTED BY [facility] ([phone] EXT. [id number]) 4) ASPIRIN 81MG EC TAB TAKE ONE [...] CO2: 31 (06/07/23 08:36) PLASMA CREA: 1.0 (04/04/24 13:14) PLASMA EGFR: 78.0 (04/04/24 13:14) PLASMA GLUCOSE: 189 (06/07/23 08:36) PLASMA K: 3.4 (06/07/23 08:36) PLASMA NA: 138 (06/07/23 08:36) PLASMA ALBUMIN: 3.7 (04/04/24 13:14) PLASMA ALKPHOS: 89 (04/04/24 13:14) PLASMA ALT/SGPT: 13 (04/04/24 13:14) PLASMA AST/SGOT: 17 (04/04/24 13:14) PLASMA BILI DIR: 0.2 (04/04/24 13:14) PLASMA BILI T: 0.3 (04/04/24 13:14) PLASMA T PROTEIN:6.8 (04/04/24 13:14) PLASMA TSH: 3.274 (06/07/23 08:36) PLASMA VITALS: [...] friends Connectedness to community, school, family, friends [place] skills (such as problem-solving, conflict resolution, anger management, impulse control, etc.) Access to appropriate medical and mental health care Violence assessment completed: yes Prior history of violence: denied The risk of violence towards others is considered: low made no comments during our conversation that were concerning and/or would suggest that the is at elevated imminent risk of harm to self or others ASSESSMENT: [place] with PTSD, h/o MDD, and tobacco use [...] to optimize both medication and counseling therapies, 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 /nayan/ SAPNA MEREDITH CLINICAL SHIPPING AND RECEIVING SPECIALIST Signed: 04/18/2024 13:47 SAPNA MEREDITH [facility] Apr 18, 2024 08:20 AM PSYCHIATRY NOTE: LOCAL TITLE: [facility] PSYCHIATRY NOTE (T) STANDARD TITLE: PSYCHIATRY NOTE DATE OF NOTE: APR 18, 2024@08:20 ENTRY DATE: APR 18, 2024@08:20:16 AUTHOR: SAPNA MEREDITH EXP COSIGNER: URGENCY: STATUS: COMPLETED [facility] PSYCHIATRY NOTE (T) Has ADDENDA PSYCHIATRIC EVALUATION NOTE Time in: 1127 Time out: 1151 Time spent: 24 min TS is a [...] in video to home appointment: denied CC: I'm doing fine, no problems HPI: Vlad was last spoken with on 03/21/24 where he reported on recent hospitalization for heart failure, and subsequent discharge. Discussed medication changes, with discontinuation of amlodipine and initiation of spironolactone and SGLT-2 inhibitor since; information and supply on hand relayed to PACT. Mood is not too bad, sleep stinks.. it seems like anymore, that I go to bed at 0343-3035 and around 0300 I'm awake and can't [...] denied additional concerns, only that his energy was in deficit when sleep is compromised. We discussed SSRI titration targeting sleep and mood, although he will contemplate, in light of other changes and not wanting to complicate his regimen. [facility] seen for F2F appt as planned. Vlad reported medication use as well, denying change from previously reported adherence to regimen. He continues to review SSRI use and sleep supports with tolerability and benefit perceptions. He has received [facility] supply of post-discharge medications and denied issues or concerns with this. Feeling generally that I'm doing fine, no problems.. 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 It's fine, he likes it here . Jim will be spending about a week or so with him. He does not have much for travel plans otherwise, as he declined to go to [place] with his daughter and will likely be watching Jim again; he's a great dog . Mood has been pretty much okay.. I do feel that it is supportive, the new medication.. it hasn't bothered me at all . Denied negative thought content. His sleep could have been better lately, but tomorrow it will be three years since my .. but that might be impacting me . Some increasing restlessness here recently. His use of sleep aides is without change; citing tolerability and benefit. I feel okay, I'm able to keep going . Decent concentration for his requirements. Rare episodes of short-term recall issues, otherwise denying concerns. Has denied swelling or SOB since hospital stay. Orthostasis seemingly limited to getting out of bed; finds this managable, and taking precautions appropriately. We resolved to monitor. Denied SI/HI. SUBSTANCE USE HX: Nicotine- baseline between 0.25-0.5ppd. NRT failed previously. MAT use previously. Confirmed recent use as 0.5ppd. Has NRT patch only, and we will monitor step-2 to 3 taper, which is his desire. Stated intent to use PRN supports as well. I have not had a chance to get started on that.. I just get so busy . Will continue to encourage. Alcohol- denied Illicit- denied PSYCHIATRIC MEDICATION HISTORY: According to [employer] and [employer] remote data of [place] outpatient Rx, the pt has a h/o [...] TWICE A DAY ACTIVE DIRECTED BY THE [place] [facility] ([phone] EXT. [phone]) 4) ASPIRIN 81MG EC TAB TAKE ONE [...] CO2: 31 (06/07/23 08:36) PLASMA CREA: 1.0 (04/04/24 13:14) PLASMA EGFR: 78.0 (04/04/24 13:14) PLASMA GLUCOSE: 189 (06/07/23 08:36) PLASMA K: 3.4 (06/07/23 08:36) PLASMA NA: 138 (06/07/23 08:36) PLASMA ALBUMIN: 3.7 (04/04/24 13:14) PLASMA ALKPHOS: 89 (04/04/24 13:14) PLASMA ALT/SGPT: 13 (04/04/24 13:14) PLASMA AST/SGOT: 17 (04/04/24 13:14) PLASMA BILI DIR: 0.2 (04/04/24 13:14) PLASMA BILI T: 0.3 (04/04/24 13:14) PLASMA T PROTEIN:6.8 (04/04/24 13:14) PLASMA TSH: 3.274 (06/07/23 08:36) PLASMA VITALS: [...] friends Connectedness to community, school, family, friends [place] skills (such as problem-solving, conflict resolution, anger management, impulse control, etc.) Access to appropriate medical and mental health care Violence assessment completed: yes Prior history of violence: denied The risk of violence towards others is considered: low [place] made no comments during our conversation that were concerning and/or would suggest that the is at elevated imminent risk of harm to self or others ASSESSMENT: with PTSD, h/o MDD, and tobacco use DO. [place] cited baseline predominant complaint of sleep dysregulation. 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 /thang [facility] [employer] SHIPPING AND RECEIVING SPECIALIST Signed: 04/18/2024 13:47 04/18/2024 ADDENDUM STATUS: COMPLETED [facility] requesting renewal on the below order. PACT provider alerted. --> RANOLAZINE 500MG SA TAB Qty: 180 for 90 ACTIVE Issu:02-01-24 days Sig: TAKE ONE TABLET BY MOUTH Refills: 0 Last:02-02-24 EVERY 12 HOURS FOR RAPID VENTRICULAR Expr:05-02-24 HEARTBEAT /nayan/ SAPNA [facility] [employer] SHIP[employer] AND RECEIVING SPECIALIST Signed: 04/18/2024 13:48 Receipt Acknowledged By: * AWAITING SIGNATURE * LAURA GRIFFIN,SAPNA MEDINA OC
--- OUTSIDE RECORDS SUMMARY | 2024-05-03 06:32 | XMS_ITS | Encounter Summary ---
Author Name [facility] Organization [facility] Address [address] [place] [address] Care Team Providers Care Pastry Decorator Name Role Phone LAURA GRIFFIN Primary Care [...] N PLAN N Oct 16, 2012 MEDIGAP [id number] Fabian MCPHERSON PATIENT AARP MED SUPP [facility] Feb 15, 2022 PLANN [id number] Fabian MCPHERSON PATIENT AARP MED SUPP MEDIGAP PLAN N PLAN N Oct 16, 2012 PLAN N [id number] aFbian MCPHERSON PATIENT MEDICARE (WNR) MEDICARE (M) PART A May 16, 2005 PART A [id number] Fabian MCPHERSONS PATIENT MEDICARE (WNR) MEDICARE (M) PART B May 16, 2005 PART B [id number] [phone] Fabian MCPHERSON PATIENT MEDICARE (WNR) MEDICARE (M) PART A May 16, 2005 PART A [id number] Fabian MCPHERSONS PATIENT MEDICARE (WNR) MEDICARE (M) PART B May 16, 2005 PART B [id number] Fabian MCPHERSON PATIENT MEDICARE (WNR) MEDICARE (M) PART A May 16, 2005 PART A [id number] Fabian MCPHERSON PATIENT MEDICARE (WNR) MEDICARE (M) PART B May 16, 2005 PART B [id number] Fabian MCPHERSON PATIENT MEDICARE PART D (WNR) PRESCRIPT ION PART D Feb 15, 2010 PART D [id number] [phone] Fabian MCPHERSON PATIENT Selected Encounter This section includes the information on record at ME for the Encounter. Date/Time Encounter Type Encounter Description Reason Pro vider Source May 03, 2024 10:32 AM Outpatient Encounter ONCOLOGY/TUMOR IHE Encounter Template Text not used by ME Plan of Treatment: Future Appointments (+ 6 months) and Future Tests (+/- 45 days) The Plan of Treatment section includes future care activities for the patient from all [place] treatmentfacilities. This section includes future appointments and future orders which are active, pending or scheduled. Future Appointments This section includes appointments that were scheduled to occur 6 months from the date of the Encounter, up to a maximum of 20 appointments. The data comes from all [place] treatment facilities. Appointment Date/Time Appointment Type Appointme nt Facility Name Jun 02, 2024 11:00 AM AMBULATORY - PSYCHIATRY [facility] Jun 02, 2024 11:30 AM AMBULATORY - NONE [facility] Jun 02, 2024 11:45 AM AMBULATORY - NONE [facility] June 21, 2024 10:30 AM AMBULATORY - NONE [facility] June 28, 2024 11:30 AM AMBULATORY - SURGERY [facility] Jul 26, 2024 11:00 AM AMBULATORY - PSYCHIATRY [facility] Sep 20, 2024 11:00 AM AMBULATORY - PSYCHIATRY [facility] Oct 12, 2024 10:30 AM AMBULATORY - MEDICINE [facility] Oct 19, 2024 03:00 PM AMBULATORY - SURGERY [facility] Lab Results: +/- 30 days of the encounter This section includes the Chemistry and Hematology Lab Results on record with ME for the patient. Radiology Reports and Pathology Reports are provided separately, in subsequent sections. Lab Results This section contains the Chemistry/Hematology Results that were resulted 30 days before or 30 daysafter the date of the Encounter. Date/Time Source Result Type Result - Unit Interpretation Reference Range Specimen Type Comment Jun 02, 2024 11:57 AM [facility] VITAMIN D (TOTAL) SERUM Specimen Type: SERUM Comment: VITD One expert panel recommended a target range of 30-40 ng/mL. Ordering Provider: LAURA GRIFFIN Report Released Date/Time: Dec 14, 2023 12:09 PM Reporting Lab: [address] [address] Performing Lab: [address] [address] VITAMIN D (TOTAL) 35 ng/mL 30-60 Jun 02, 2024 11:57 AM [facility] TSH PLASMA Specimen Type: PLASMA Comment: GLUCOSE The ADA recommends a fasting glucose of 99 mg/dL as the GLUCOSE upper limit of normal. TP Per package insert reference range for recumbent is 6.0 to 7.8 TP g/dL. Plasma samples will generally have higher values (about TP 0.2 to 0.4 g/dL higher) due to presence of fibrinogen. TRIG REFERENCE RANGE: BORDERLINE HIGH: 150-199 mg/dL HIGH: 200-499 TRIG mg/dL VERY HIGH: >=500 mg/dL CHOL REF RANGE: BORDERLINE HIGH: 200-239 mg/dL HIGH: >=240 mg/dL HDLC Values >60 are a negative risk factor for heart disease. DLDL REF RANGE: NEAR OR ABOVE OPTIMAL: 100-129 mg/dL BORDERLINE DLDL HIGH: 130-159 mg/dL HIGH: 160-189 mg/dL VERY HIGH: >=190 Ordering Provider: LAURA GRIFFIN Report Released Date/Time: Dec 14, 2023 12:09 PM Reporting Lab: [address] [address] Performing Lab: [address] [address] TSH 1.388 u[IU]/mL 0.350-4.940 Jun 02, 2024 11:57 AM [facility] HEMOGLOBIN A1C BLOOD Specimen Type: B LOOD Comment: Giant or Large Platelets noted on Automated CBC. Values obtained from A1C measurements can vary. For typical A1C assays, a reported value of 7.0 could actually be between 6.72 and 7.28 if measured by a reference method. A reported value of 9.0 could actually be between 8.73 and 9.27. Ref: http://www.ngsp.org/CAPdata.asp Ordering Provider: LAURA GRIFFIN Report Released Date/Time: Dec 14, 2023 12:09 PM Reporting Lab: [address] [address] Performing Lab: [address] [address] HEMOGLOBIN A1C 6.0 H 3.6-5.7 Jun 02, 2024 11:57 AM [facility] LIPID PROFILE PLASMA Specimen Type: P LASMA Comment: GLUCOSE The ADA recommends a fasting glucose of 99 mg/dL as the GLUCOSE upper limit of normal. TP Per package insert reference range for recumbent is 6.0 to 7.8 TP g/dL. Plasma samples will generally have higher values (about TP 0.2 to 0.4 g/dL higher) due to presence of fibrinogen. TRIG REFERENCE RANGE: BORDERLINE HIGH: 150-199 mg/dL HIGH: 200-499 TRIG mg/dL VERY HIGH: >=500 mg/dL CHOL REF RANGE: BORDERLINE HIGH: 200-239 mg/dL HIGH: >=240 mg/dL HDLC Values >60 are a negative risk factor for heart disease. DLDL REF RANGE: NEAR OR ABOVE OPTIMAL: 100-129 mg/dL BORDERLINE DLDL HIGH: 130-159 mg/dL HIGH: 160-189 mg/dL VERY HIGH: >=190 Ordering Provider: LAURA GRIFFIN Report Released Date/Time: Dec 14, 2023 12:09 PM Reporting Lab: [address] [address] Performing Lab: [address] [address] CHOLESTEROL 100 mg/dL 0-199 LDL CHOLESTEROL 50 mg/dL 0-99 HDL CHOLESTEROL 38 mg/dL L >40 TRIGLYCERIDE 101 mg/dL 0-149 Jun 02, 2024 11:57 AM [facility] URINALYSIS URINE Specimen Type: URINE No comment entered. Ordering Provider: LAURA GRIFFIN Report Released Date/Time: Dec 14, 2023 12:09 PM Reporting Lab: [address] [address] Performing Lab: [address] [place] [address] SPECIFIC GRAVITY 1.028 H 1.016-1.022 URINE GLUCOSE >1000 mg/dL H Negative URINE PROTEIN Negative mg/dL Negative URINE PH 6.0 5.0-8.0 RBC/HPF 2 /[HPF] <=4 NITRITE, URINE Negative Negative ESTERASE(WBC) Negative Negative URINE CLARITY Clear Clear URINE BILIRUBIN Negative mg/dL <=0.4 URINE BLOOD Negative mg/dL <0.05 UROBILINOGEN Negative mg/dL <=1 URINE KETONES Negative mg/dL <=9 URINE COLOR Light-Yellow [none] Jun 02, 2024 11:57 AM [facility] COMPREHENSIVE METABOLIC PANEL PLASMA S pecimen Type: PLASMA Comment: GLUCOSE The ADA recommends a fasting glucose of 99 mg/dL as the GLUCOSE upper limit of normal. TP Per package insert reference range for recumbent is 6.0 to 7.8 TP g/dL. Plasma samples will generally have higher values (about TP 0.2 to 0.4 g/dL higher) due to presence of fibrinogen. Ordering Provider: LAURA GRIFFIN Report Released Date/Time: Dec 14, 2023 12:09 PM Reporting Lab: [address] [address] Performing Lab: [address] [address] ALBUMIN 3.9 g/dL 3.5-4.8 ALKALINE PHOSPHATASE 85 U/L 40-150 ALT/SGPT 10 U/L 0-55 AST/SGOT 18 U/L 10-40 BUN 4.3 mg/dL L 8.4-25.7 CALCIUM 8.8 mg/dL 8.6-10.3 CREATININE 0.8 mg/dL 0.7-1.3 CO2 24 mmol/L 22-30 GLUCOSE 87 mg/dL 74-99 PROTEIN, TOTAL 7.0 g/dL 6.4-8.3 SODIUM 140 mmol/L 134-144 CHLORIDE 108 mmol/L 99-112 BILIRUBIN, TOTAL 0.4 mg/dL 0.2-1.2 POTASSIUM 2.9 mmol/L L 3.5-5.1 ANION GAP 11 mmol/L 10-20 EGFR (CALCULATED) 91 Jun 02, 2024 11:57 AM [facility] CBC BLOOD Specimen Type: BLOOD Comment: Giant or Large Platelets noted on Automated CBC. Ordering Provider: LAURA GRIFFIN Report Released Date/Time: Dec 14, 2023 12:09 PM Reporting Lab: [address] [address] Performing Lab: [address] [address] WBC COUNT 6.3 10*3/uL 3.6-11.0 RBC COUNT 5.13 10*6/uL 4.47-5.83 HGB 11.4 g/dL L 13.6-17.4 HCT 36.0 L 40.0-51.0 MCV 70.1 fL L 80.0-96.0 MCH 22.2 pg L 27.0-31.0 MCHC 31.7 g/dL 31.5-36.5 PLT 183 10*3/uL 150-400 LYMPHS % 19.3 L 21.0-51.0 MONOCYTES % 9.3 H 4.0-8.0 NUCLEATED RBC/100WBC 0.1 /100{WBCs} RDW 19.0 H 11.2-15.8 NEUTROPHIL % 67.7 54.0-78.0 EOSINOPHIL % 2.7 0.0-3.0 BASOPHIL % 1.0 0.0-3.0 ABSOLUTE LYMPHOCYTE COUNT 1.2 10*3/uL 0. 8-5.0 ABSOLUTE NEUTROPHIL COUNT 4.3 10*3/uL 1. 9-8.6 ABSOLUTE BASOPHIL COUNT 0.1 10*3/uL 0.0- 0.3 ABSOLUTE MONOCYTE COUNT 0.6 10*3/uL 0.1- 0.9 ABSOLUTE EOSINOPHIL COUNT 0.2 10*3/uL 0. 0-0.3 MPV 10.7 fL 7.4-11.4 Apr 04, 2024 01:14 PM [facility] CREATININE (W EGFR) PLASMA Specimen Ty pe: PLASMA Comment: TP Per package insert reference range for recumbent is 6.0 to 7.8 TP g/dL and for >60 y/o is lower by 0.2 g/dL. Plasma samples will TP generally have higher values (about 0.2 to 0.4 g/dL higher) due TP to presence of fibrinogen. Ordering Provider: AL MOJICA Report Released Date/Time: Apr 04, 2024 01:05 PM Reporting Lab: [address] [address] Performing Lab: [address] [phone] CREATININE 1.0 mg/dL 0.7-1.3 EGFR (CALCULATED) 78.0 mL/min Apr 04, 2024 01:14 PM [facility] HEPATIC FUNCTION PANEL PLASMA Specimen Type: PLASMA [...] Apr 04, 2024 01:05 PM Reporting Lab: [address] [address] Performing Lab: [address] [address] ALBUMIN 3.7 g/dL 3.5-4.8 ALKALINE PHOSPHATASE 89 U/L 40-150 ALT/SGPT 13 U/L <55 AST/SGOT 17 U/L 10-40 BILIRUBIN,DIRECT 0.2 mg/dL <0.5 PROTEIN, TOTAL 6.8 g/dL 6.4-8.3 BILIRUBIN, TOTAL 0.3 mg/dL 0.2-1.2 Apr 04, 2024 01:14 PM [facility] CBC BLOOD Specimen Type: BLOOD No comment entered. Ordering Provider: AL MOJICA Report Released Date/Time: Apr 04, 2024 01:05 PM Reporting Lab: [address] [address] Performing Lab: [address] [address] WBC COUNT 6.8 10*3/uL 3.6-11.0 RBC COUNT [...] and tobacco- related health factors from the ME facility where the Encounter took place. Current Smoking Status This section includes the most current smoking, or tobacco-related health factor, from the ME facility where the Encounter took place. Date/Time Current Smoking Status Comment Waqas itsweetie Sep 06, 2017 09:21 AM SMOKING CESSATION NO CAROL TAM Tobacco Use History This section includes a history of the smoking, or tobacco-related health factors, that were collected on or before the date of the Encounter. The data comes from the ME facility where the Encounter took place. Date/Time Smoking Status/Tobacco Use Comment F acshyla Jun 12, 2015 01:08 PM TOBACCO CURRENT USER 1/2 pack a day [facility] Apr 24, 2013 09:26 AM CURRENT TOBACCO USER [facility] Advance Directives: All historical and current Section Date Range: From patient's date of to the date document was created. This section includes ALL of a patient's completed or amended [place] Advance and Rescinded Directives. The entries below indicate that a directive exists for the patient, but an actual copy is not included with this document. The data comes from all ME facilities. Date Advance Directives Provider Source May 03, 2019 ADVANCE DIRECTIVE DISCUSSION DEN DE LUNA Dec 28, 2012 ADVANCE DIRECTIVE CRISTI RAE [facility] Dec 28, 2012 ADVANCE DIRECTIVE DISCUSSION VIDAL [facility] Dec 28, 2012 RESCINDED ADVANCE DIRECTIVE DONALD RAE [facility] June 18, 2009 ADVANCE DIRECTIVE DISCUSSION FERNY PASTRANAY [facility] Radiology Reports: +/- 30 days of the [...] the Encounter. The data comes from all [place] treatment facilities. Date/Time Radiology Report Provider Source Apr 25, 2024 12:28 PM LDCT LUNG CANCER S CREENING: CAROL MCPHERSON Ghanshyam [id number] -[id number] M Exm Date: APR 25, 2024@12:28 Req Phys: CRISTI BISHOP Pat Loc: [facility] LUNG CANCER SCREENING ( Img Loc: W CT SCAN Service: [place] [address] (Case [id number] COMPLETE)LDCT LUNG CANCER SCREENING (CT Detailed) CPT:40655 Reason for Study: Initial LCS. 0.75ppd x 50 years. Clinical History: Please coordinate with existing WP appt [address] [place] [id number] Report Status: Verified Date Reported: MAY 03, 2024 Date Verified: MAY 03, 2024 Residential Building Inspector E-Sig:/ES/JOSE A LOERA Report: EXAM: LDCT LUNG [...] 09/10/2021 OTHER NODULES: Automated ROIs generated by [employer] CT on 2024-04-25. Automatically found reference lung [...] Primary Interpreting Staff: JOSE A LOERA, RADIOLOGIST (Residential Building Inspector) /JOSE A TARIQ [facility] Encounter Notes: All associated encounter notes This section contains the clinical notes associated to the Encounter. Date/Time Encounter Note(s) Provider Source May 03, 2024 10:45 AM LETTERS: LOCAL TITLE: LUNG CANCER SCREENING LETTER STANDARD TITLE: LETTERS DATE OF NOTE: MAY 03, 2024@10:45 ENTRY DATE: MAY 03, 2024@10:45:38 AUTHOR: MOE MOREIRA COSIGNER: URGENCY: STATUS: COMPLETED [facility] [address] [place] [address] Apr CAROL MCPHERSON [address] [place] [address] Dear : Your recent lung cancer screening CT scan found a small lung nodule(s). This is stable from your previous CT scan. Most nodules are not lung cancer, but a few can grow into lung cancer. Nodules are often caused by scar tissue, a healed infection, or some other irritant found in the air we breathe. Nodules are detected in up to half of screening CT scans, but very few nodules wrap turner to be cancer. In general, more than 95 out of 100 nodules found on lung cancer screening CT scans are not lung cancer. If there are additional findings, we will alert your primary care team. Your next lung cancer screening CT scan is due in 12 months. Call Imaging today at [phone] ext [phone] to schedule this appointment. If you are experiencing an upper respiratory illness like a cold or the flu, please get your scan 4 weeks after your symptoms have gone away. Lung cancer screening can detect lung cancer, but it does not prevent it. Rarely, a CT scan can miss a small lung cancer. Contact your primary care provider if you develop new symptoms like worsening shortness of breath, change in a cough, or coughing up blood. If you still smoke cigarettes, we can help you quit. We understand that quitting cigarette smoking is difficult, but it is the best way to improve your health. When you want help, let your primary care provider know. You can also call 9-675-OLKI-VET ( ) or visit [employer].smokefree.gov. Please contact Pam Moreira at [phone] with questions or concerns about lung cancer screening. Sincerely, The Lung Cancer Screening Program MOE MOREIRA [facility] May 03, 2024 10:33 AM HEMATOLOGY AND ONC OLOGY NOTE: LOCAL TITLE: LUNG CANCER SCREENING DOCUMENTATION STANDARD TITLE: HEMATOLOGY AND ONCOLOGY NOTE DATE OF NOTE: MAY 03, 2024@10:33 ENTRY DATE: MAY 03, 2024@10:33:05 AUTHOR: MOE MOREIRA COSIGNER: URGENCY: STATUS: COMPLETED NO LUNG NODULES or TRACKING OF NODULE NOT INDICATED per guidelines (e.g., clearly benign/some small nodules). Date of image: Date: April 25, 2024 LDCT Scan Results: Most recent LDCT scan shows a nodule for which tracking is not indicated per guidelines or radiology report. Lung RADS Score: 2 Incidental Findings: The following *INCIDENTAL FINDINGS* were noted: Other: bilateral renal calculi I am notifying the Primary Care Provider for information, and for follow-up of incidental findings, if indicated. Plan: Continue routine annual lung cancer screening. Patient Notification of results: Results letter sent to patient. INDEX LUNG NODULE: Location: Left lower lobe, pleural-based Image: 181 Series: 202 Density: Solid Solid diameter (average): 7 mm Change: Unchanged from 09/10/2021 OTHER NODULES: Automated ROIs generated by [employer] CT on 2024-04-25. Automatically found reference lung [...] Diagnostic Codes: LUNGRADS S: SIGNIFICANT INCIDENTAL FINDING /es/ MOE MOREIRA REGISTERED NURSE Signed: 05/03/2024 10:36 Receipt Acknowledged By: 05/03/2024 11:47 /es/ LAURA GRIFFIN NURSE PRACTITIONER 05/03/2024 19:04 /es/ ALEC SPRAGUE ONCOLOGIST MOE MOREIRA [facility]
--- OUTSIDE RECORDS SUMMARY | 2024-06-02 07:00 | XMS_ITS | Encounter Summary ---
Author Name [facility] [place] [facility] Address [address] [place] [address] Care Team Providers Care Swine Nutritionist Name Role Phone LAURA GRIFFIN Primary Care [...] N PLAN N Oct 16, 2012 MEDIGAP [id number] [phone] Fabian MCPHERSON PATIENT AARP MED SUPP [facility] Feb 15, 2022 PLANN [id number] Fabian MCPHERSON PATIENT AARP MED SUPP MEDIGAP PLAN N PLAN N Oct 16, 2012 PLAN N [id number] [phone] Fabian MCPHERSON PATIENT MEDICARE (WNR) MEDICARE (M) PART A May 16, 2005 PART A [id number] Fabian MCPHERSONS PATIENT MEDICARE (WNR) MEDICARE (M) PART B May 16, 2005 PART B [id number] [phone] Fabian MCPHERSONS PATIENT MEDICARE (WNR) MEDICARE (M) PART A May 16, 2005 PART A [id number] [phone] [place] PATIENT MEDICARE (WNR) MEDICARE (M) PART B May 16, 2005 PART B [id number] [phone] Fabian MCPHERSON PATIENT MEDICARE (WNR) MEDICARE (M) PART A May 16, 2005 PART A [id number] [phone] Fabian MCPHERSON PATIENT MEDICARE (WNR) MEDICARE (M) PART B May 16, 2005 PART B [id number] [phone] Fabian MCPHERSON PATIENT MEDICARE PART D (WNR) PRESCRIPT ION PART D Feb 15, 2010 PART D [id number] Fabian MCPHERSON PATIENT Selected Encounter This section includes the information on record at [place] for the Encounter. Date/Time Encounter Type Encounter Description Reason Provider Source Jun 02, 2024 11:00 AM MTMS BY EREN BERG [facility] - IND ICD-10-CM F43.10 Post-traumatic stress disorder, unspecified REGAN MEREDITH [place] Encounter Template Text not used by [place] Assessments - Encounter Diagnoses This section includes the primary and secondary diagnoses documented for the Encounter. Date/Time Primary/Secondary Diagnosis Diagnosis Name Provider Source Jun 05, 2024 11:57 AM PRIMARY Post-traumatic stress disorder, unspecified REGAN MEREDITH [facility] Jun 05, 2024 11:57 AM SECONDARY Depression, unspecified REGAN MEREDITH [facility] Jun 05, 2024 11:57 AM SECONDARY Tobacco use REGAN MEREDITH [facility] Plan of Treatment: Future Appointments (+ 6 months) and Future Tests (+/- 45 days) The Plan of Treatment section includes future care activities for the patient from all [place] treatmentfacilities. This section includes future appointments and future orders which are active, pending or scheduled. Future Appointments This section includes appointments that were scheduled to occur 6 months from the date of the Encounter, up to a maximum of 20 appointments. The data comes from all [place] treatment facilities. Appointment Date/Time Appointment Type Appointme nt Facility Name June 21, 2024 10:30 AM AMBULATORY - NONE JADIEL Peres [facility] June 28, 2024 11:30 AM AMBULATORY - SURGERY CARMEN AMARO [facility] Jul 26, 2024 11:00 AM AMBULATORY - PS[facility]CHIAT[facility] Sep 20, 2024 11:00 AM AMBULATORY - PSYCHIATRY [facility] Oct 12, 2024 10:30 AM AMBULATORY - MEDICINE [facility] RUBY [facility] Oct 19, 2024 03:00 PM AMBULATORY - SURGERY CARMEN AMARO [facility] Nov 15, 2024 11:00 AM AMBULATORY - PSYCHIATRY [facility] Nov 29, 2024 11:00 AM AMBULATORY - NONE [facility] Peres [facility] Active, Pending, and Scheduled Orders This section includes a listing of several types of active, pending, and scheduled orders, including clinic medications orders, diagnostic test orders, procedure orders and consult orders; where the start date of the order is 45 days before the date of the Encounter or 45 days after the date of theEncounter. The data comes from all [place] treatment facilities. Test Date/Time Test Type Test Details Facility Name June 28, 2024 12:00 AM Laboratory - Chemi stry Order CREATININE (W EGFR) LT GREEN PLASMA [facility] June 28, 2024 12:00 AM Laboratory - Chemi stry Order CBC LAVENDER BLOOD [facility] Lab Results: +/- 30 days of the encounter This section includes the Chemistry and Hematology Lab Results on record with [place] for the patient. Radiology Reports and Pathology Reports are provided separately, in subsequent sections. Lab Results This section contains the Chemistry/Hematology Results that were resulted 30 days before or 30 daysafter the date of the Encounter. Date/Time Source Result Type Result - Unit Interpretation Reference Range Specimen Type Comment Jun 02, 2024 11:57 AM [facility] VITAMIN D (TOTAL) SERUM Specimen Type: SERUM Comment: VITD One expert panel recommended a target range of 30-40 ng/mL. Ordering Provider: LAURA GRIFFIN Report Released Date/Time: Dec 14, 2023 12:09 PM Reporting Lab: [facility] [address] [facility] [address] Performing Lab: [facility] [id number] [place] [phone] VITAMIN D (TOTAL) 35 ng/mL 30-60 Jun 02, 2024 11:57 AM [facility] TSH PLASMA Specimen Type: PLASMA Comment: [...] Dec 14, 2023 12:09 PM Reporting Lab: [address] [address] Performing Lab: [place] [id number] TSH 1.388 u[IU]/mL 0.350-4.940 Jun 02, 2024 11:57 AM [facility] LIPID PROFILE PLASMA Specimen Type: P MAKENZIE Comment: GLUCOSE The ADA recommends a fasting [...] Dec 14, 2023 12:09 PM Reporting Lab: [address] [address] Performing Lab: [address] [address] CHOLESTEROL 100 mg/dL 0-199 LDL CHOLESTEROL 50 mg/dL 0-99 HDL CHOLESTEROL 38 mg/dL L >40 TRIGLYCERIDE 101 mg/dL 0-149 Jun 02, 2024 11:57 AM [facility] HEMOGLOBIN A1C BLOOD Specimen Type: B [...] Dec 14, 2023 12:09 PM Reporting Lab: [place] [id number] Performing Lab: [place] [id number] HEMOGLOBIN A1C 6.0 H 3.6-5.7 Jun 02, 2024 11:57 AM [facility] URINALYSIS URINE Specimen Type: URINE No comment entered. Ordering Provider: LAURA GRIFFIN Report Released Date/Time: Dec 14, 2023 12:09 PM Reporting Lab: [address] [address] Performing Lab: [place] [id number] SPECIFIC GRAVITY 1.028 H 1.016-1.022 URINE GLUCOSE >1000 mg/dL H Negative URINE PROTEIN Negative mg/dL Negative URINE PH 6.0 5.0-8.0 RBC/HPF 2 /[HPF] <=4 NITRITE, URINE Negative Negative ESTERASE(WBC) Negative Negative URINE CLARITY Clear Clear URINE BILIRUBIN Negative mg/dL <=0.4 URINE BLOOD Negative mg/dL <0.05 UROBILINOGEN Negative mg/dL <=1 URINE KETONES Negative mg/dL <=9 URINE COLOR Light-Yellow [none] Jun 02, 2024 11:57 AM [facility] CBC BLOOD Specimen Type: BLOOD Comment: Giant or Large Platelets noted on Automated CBC. Ordering Provider: LAURA GRIFFIN Report Released Date/Time: Dec 14, 2023 12:09 PM Reporting Lab: [address] [address] Performing Lab: [address] [address] WBC COUNT 6.3 10*3/uL 3.6-11.0 RBC COUNT [...] 10*3/uL 0. 0-0.3 MPV 10.7 fL 7.4-11.4 Jun 02, 2024 11:57 AM [facility] COMPREHENSIVE METABOLIC PANEL PLASMA S pecimen [...] Dec 14, 2023 12:09 PM Reporting Lab: [address] [address] Performing Lab: [address] [address] ALBUMIN 3.9 g/dL 3.5-4.8 ALKALINE PHOSPHATASE 85 [...] GAP 11 mmol/L 10-20 EGFR (CALCULATED) 91 Social History: Smoking Status (Most current) and Tobacco Use (All prior to encounter date) This section includes the most current, and the historical, smoking and tobacco- related health factors from the [place] facility where the Encounter took place. Current Smoking Status This section includes the most current smoking, or tobacco-related health factor, from the [place] facility where the Encounter took place. Date/Time Current Smoking Status Comment [place] [facility] Jun 02, 2024 11:00 AM VA-TOBACCO USE EVERY DAY CIGARET VALENTIN CAROL [facility] Tobacco Use History This section includes a history of the smoking, or tobacco-related health factors, that were collected on or before the date of the Encounter. The data comes from the [place] facility where the Encounter took place. Date/Time Smoking Status/Tobacco Use Comment F acility Jun 02, 2024 11:00 AM VA-TOBACCO USE LAUREL RY DAY CIGARETTES [facility] Jun 14, 2023 11:00 AM VA-TOBACCO DOESNT USE [place] 30 MIN WAKEUP [facility] Jun 14, 2023 11:00 AM VA-TOBACCO USE 30 YEARS OR MORE [facility] Jun 14, 2023 11:00 AM VA-TOBACCO USE ADVICE [facility] Jun 14, 2023 11:00 AM VA-TOBACCO USE KENNEL ATTENDANT NO [facility] Jun 14, 2023 11:00 AM VA-TOBACCO USE MED NO [facility] Jun 14, 2023 11:00 AM VA-TOBACCO USER EVERY DAY [facility] May 01, 2022 11:00 AM VA-TOBACCO DOESNT USE [place] 30 MIN WAKEUP [facility] May 01, 2022 11:00 AM VA-TOBACCO USE 30 YEARS OR MORE [facility] May 01, 2022 11:00 AM VA-TOBACCO USE ADVICE [facility] May 01, 2022 11:00 AM VA-TOBACCO USE KENNEL ATTENDANT NO [facility] May 01, 2022 [...] May 09, 2021 02:30 PM VA-TOBACCO USE KENNEL ATTENDANT YES [facility] May 09, 2021 [...] Apr 02, 2020 09:00 AM VA-TOBACCO USE KENNEL ATTENDANT NO [facility] Apr 02, 2020 [...] Sep 14, 2018 10:16 AM VA-TOBACCO USE KENNEL ATTENDANT NO [facility] Sep 14, 2018 10:16 AM VA-TOBACCO USE MED NOTIFY PROVID ER [facility] Sep 14, 2018 10:16 AM VA-TOBACCO USER EVERY DAY [facility] Sep 10, 2017 03:41 PM VA-TOBACCO DOESNT USE [place] 30 MIN WAKEUP [facility] Sep 10, 2017 03:41 PM VA-TOBACCO USE 30 YEARS OR MORE [facility] Sep 10, 2017 03:41 PM VA-TOBACCO USE ADVICE [facility] Sep 10, 2017 03:41 PM VA-TOBACCO USE KENNEL ATTENDANT YES [facility] Sep 10, 2017 03:41 PM VA-TOBACCO USE MED NOTIFY PROVID ER [facility] Sep 10, 2017 03:41 PM VA-TOBACCO USER EVERY DAY [facility] Sep 06, 2017 09:21 AM CURRENT TOBACCO USER [facility] Sep 06, 2017 09:21 AM SMOKING CESSATION NO [facility] Sep 06, 2017 09:21 AM TOBACCO OFFERRED P T MEDS (PROVIDER) [facility] Sep 06, 2017 09:21 AM TOBACCO OFFERRED S [facility]MO[facility]INIC [facility] Aug 12, 2016 10:34 AM CURRENT TOBACCO USER [facility] Jul 23, 2015 08:53 AM CURRENT TOBACCO USER [facility] Mar 27, 2014 01:28 PM CURRENT TOBACCO USER [facility] May 05, 2012 09:42 AM CURRENT TOBACCO USER [facility] Apr 23, 2011 11:03 AM CURRENT TOBACCO USER [facility] Apr 23, 2011 11:03 AM SMOKING MEDICATION INTERES T Annie MEDINA [facility] Mar 31, 2010 09:16 AM CURRENT TOBACCO USER [facility] Mar 31, 2010 09:16 AM SMOKING MEDICATION INTERES T Dr Óscar [facility] Jun 10, 2009 02:07 PM CURRENT TOBACCO USER [facility] Jun 10, 2009 02:07 PM SMOKING MEDICATION INTERES T Dr. Prince [facility] Aug 07, 2008 09:36 AM CURRENT TOBACCO USER [facility] May 18, 2008 02:38 PM CURRENT TOBACCO USER [facility] May 18, 2008 02:38 PM TOBACCO OFFERRED P T MEDS (PROVIDER) [facility] May 18, 2008 02:38 PM TOBACCO OFFERRED S [facility] CLINIC [facility] Advance Directives: All historical and current Section Date Range: From patient's date of to the date document was created. This section includes ALL of a patient's completed or amended [place] Advance and Rescinded Directives. The entries below indicate that a directive exists for the patient, but an actual copy is not included with this document. The data comes from all [place] facilities. Date Advance Directives Provider Source May 03, 2019 ADVANCE DIRECTIVE DISCUSSION ROLL,APRJORI E K [facility] Dec 28, 2012 ADVANCE DIRECTIVE CRISTI RAE STEPHANE ABADSOFIE CB Dec 28, 2012 ADVANCE DIRECTIVE DISCUSSION VIDAL RAE [facility] Dec 28, 2012 RESCINDED ADVANCE DIRECTIVE KYRADONALD CAROL [facility] June 18, 2009 ADVANCE DIRECTIVE DISCUSSION FERNY PASTRANA [facility] Encounter Notes: All associated encounter notes This section contains the clinical notes associated to the Encounter. Date/Time Encounter Note(s) Provider Source Jun 02, 2024 10:57 AM PRIMARY CARE NURSI JOSE RAMON NOTE: LOCAL TITLE: OUTPATIENT NURSING INTAKE NOTE (T) STANDARD TITLE: PRIMARY CARE NURSING NOTE DATE OF NOTE: JUN 02, 2024@10:57 ENTRY DATE: JUN 02, 2024@10:57:39 AUTHOR: KINSEY IVAN COSIGNER: URGENCY: STATUS: COMPLETED Hemoglobin A1C Results: [...] Severity Reaction 05/18/2008 14:35 VICRYL SUTURES UNKNOWN Have you fallen in the last 30 days? NO MEDICATION LIST REVIEW REPORT Patient states no [...] patient. No/patient declined Last Whole Health MAP (Wiggins's [place], [place], & Purpose): 12/14/2023 Personal Health Plan [place], [place], Purpose (MAP) family and the dog Clinical Reminders Activity Tobacco Use Screening: The patient smokes cigarettes every day. The patient has never used other types of tobacco. /nayan/ KINSEY IVAN LICENSED PRACTICAL NURSE Signed: 06/02/2024 10:58 KINSEY IVAN [facility] Jun 02, 2024 09:20 AM PSYCHIATRY NOTE: LOCAL TITLE: [facility] PSYCHIATRY NOTE (T) STANDARD TITLE: PSYCHIATRY NOTE DATE OF NOTE: JUN 02, 2024@09:20 ENTRY DATE: JUN 02, 2024@09:20:49 AUTHOR: SAPNA MEREDITH COSIGNER: URGENCY: STATUS: COMPLETED PSYCHIATRIC EVALUATION NOTE Time in: 1100 Time out: 1125 Time spent: 25 min TS is a 78yom w/ a MH h/o PTSD and MDD, tobacco use DO. Chart and available information reviewed. CC: doing alright HPI: Vlad was last spoken with on 04/18/24 where he reported medication use, denying change from previously reported adherence to regimen. Reviewed SSRI use and sleep supports with tolerability and benefit perceptions. I'm doing fine, no problems.. 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 Mood had been pretty much okay.. I do feel that it is supportive, the new medication.. it hasn't bothered me at all . Denied negative thought content. His sleep could have been better lately, but tomorrow it will be three years since my .. that might be impacting me . His use of sleep aides is without change; citing tolerability and benefit. I feel okay, I'm able to keep going . Resolved to monitor. seen for [facility] appt as planned. Reporting having been alright since last follow-up, denying change to medication use. Vlad continues to report adherence with tolerability. I'll be watching Jim, in two weeks for 10 days , and will be staying at daughter's home during this time. He'll probably come here in August, for her [place] trip, as well.. he loves running around the yard . Vlad's tax season went well, he didn't have many stragglers or late filings this year. Just had a couple extensions, which will be delayed to November . Physically feeling fine. Did report in the last 2-3 weeks feeling that, my equilibrium is off a little bit and in my mind I walk like I'm drunk . Also some constipation during this time. Warm-handoff to PACT 5 coverage for review of equilibrium concern and reporting on vertiginous symptoms over past 2-3 weeks. We reviewed his mood as well, without notable depressive symptom concerns on prompted review. His sleep remains supported by sleep aides, and he is denying issues with medication use ongoing. Denied negative thought content. Resolved to monitor at this time, per his stated comfort. Denied SI/HI. SUBSTANCE USE HX: Nicotine- baseline between 0.25-0.5ppd. NRT failed previously. MAT use previously. Confirmed ongoing use as 0.5ppd. Has NRT patch only, and we will monitor step-2 to 3 taper, which is his desire. Stated intent to use PRN supports as well. He continues to contemplate the right time to pursue this plan. Alcohol- denied Illicit- denied PSYCHIATRIC MEDICATION HISTORY: According to [employer] and [employer] remote data of [place] outpatient Rx, the pt has a h/o [...] TWICE A DAY ACTIVE DIRECTED BY THE [place] [facility] ([phone] EXT. [phone]) 4) ASPIRIN 81MG EC TAB TAKE ONE [...] 1 TAB/CAP MOUTH EVERY DAY ACTIVE LABS: updates collected this date, pending results ANION GAP:6.4 (06/07/23 08:36) PLASMA BUN: 5 [...] TSH: 3.274 (06/07/23 08:36) PLASMA VITALS: T: 97.4 F [36.3 C] (06/02/2024 10:52) P: 73 (06/02/2024 10:52) R: 16 (06/02/2024 10:52) BP: 120/61 (06/02/2024 10:52) W: 155 lb [70.31 kg] (06/02/2024 10:52) BMI: 24.3 Mental Status Exam: Saul: 78yom who appears [...] friends Connectedness to community, school, family, friends [place] skills (such as problem-solving, conflict resolution, anger management, impulse control, etc.) Access to appropriate medical and mental health care Violence assessment completed: yes Prior history of violence: denied The risk of violence towards others is considered: low Wiggins made no comments during our conversation that were concerning and/or would suggest that the is at elevated imminent risk of harm to self or others ASSESSMENT: with PTSD, h/o MDD, and tobacco use DO. Wiggins cited baseline predominant complaint of sleep dysregulation. 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 [place] prescription medications: Patient verifies that they are in receipt of a complete and accurate list of medications. Prescription medications from another source: Patient verifies that they are in receipt of a complete and accurate list of medications. Over the counter medications, vitamins, herbals, and nutritional supplements: Patient verifies that they are in receipt of a complete and accurate list of medications. /es/ SAPNA MEREDITH CLINICAL SPECIMEN COLLECTOR Signed: 06/05/2024 11:57 SAPNA MEREDITH OC
--- OUTSIDE RECORDS SUMMARY | 2024-06-21 06:30 | XMS_ITS | Encounter Summary ---
Author Name [facility] Organization [facility] [place] Address [address] [place] [id number] Care Team Providers Care Guest Services Assistant Name Role Phone LAURA GRIFFIN Primary Care [...] N PLAN N Oct 16, 2012 MEDIGAP [id number] [phone] Fabian MCPHERSON PATIENT AARP MED [facility] Feb 15, 2022 PLANN [id number] Fabian MCPHERSON PATIENT AARP MED SUPP MEDIGAP PLAN N PLAN N Oct 16, 2012 PLAN N [id number] [phone] Fabian MCPHERSON PATIENT MEDICARE (WNR) MEDICARE (M) PART A May 16, 2005 PART A [id number] Fabian MCPHERSONS PATIENT MEDICARE (WNR) MEDICARE (M) PART B May 16, 2005 PART B [id number] [phone] Fabian MCPHERSONS PATIENT MEDICARE (WNR) MEDICARE (M) PART A May 16, 2005 PART A [id number] [phone] [place] PATIENT MEDICARE (WNR) MEDICARE (M) PART B May 16, 2005 PART B [id number] Fabian MCPHERSON PATIENT MEDICARE (WNR) MEDICARE (M) PART A May 16, 2005 PART A [id number] Fabian MCPHERSON PATIENT MEDICARE (WNR) MEDICARE (M) PART B May 16, 2005 PART B [id number] [phone] Fabian MCPHERSON PATIENT MEDICARE PART D (WNR) PRESCRIPT ION PART D Feb 15, 2010 PART D [id number] Fabian MCPHERSON PATIENT Selected Encounter This section includes the information on record at [place] for the Encounter. Date/Time Encounter Type Encounter Description Reason Provider Source June 21, 2024 10:30 AM OFFICE O/P EST MOD 30 MIN PRIMARY CARE/MEDICINE ICD-10-CM I50.32 Chronic diastolic (congestive) heart failure LAURA GRIFFIN [facility] Encounter Template Text not used by [place] Assessments - Encounter Diagnoses This section includes the primary and secondary diagnoses documented for the Encounter. Date/Time Primary/Secondary Diagnosis Diagnosis Name Provider Source June 21, 2024 12:39 PM PRIMARY Chronic diastolic (congestive) heart failure LAURA GRIFFIN [facility] June 21, 2024 12:39 PM SECONDARY Chronic ischemic heart disease, unspecified LAURA GRIFFIN [facility] June 21, 2024 12:39 PM SECONDARY Encounter for immunization KRISTIE VALENTINE [facility] June 21, 2024 12:39 PM SECONDARY Essential (primary) hypertension LAURA GRIFFIN [facility] June 21, 2024 12:39 PM SECONDARY Hyperlipidemia, unspecified LAURA GRIFFIN [facility] June 21, 2024 12:39 PM SECONDARY Impacted cerumen, right ear LAURA GRIFFIN [facility] June 21, 2024 12:39 PM SECONDARY Paroxysmal atrial fibrillation LAURA GRIFFIN [facility] June 21, 2024 12:39 PM SECONDARY Type 2 diabetes mellitus without complications LAURA GRIFFIN [facility] Plan of Treatment: Future Appointments (+ [...] 20 appointments. The data comes from all [facility] Appointment Date/Time Appointment Type Appointme nt Facility Name June 28, 2024 11:30 AM AMBULATORY - SURGERY [facility] Jul 26, 2024 11:00 AM AMBULATORY - PSYCHIATRY [facility] Sep 20, 2024 11:00 AM AMBULATORY - PSYCHIATRY [facility] Oct 12, 2024 10:30 AM AMBULATORY - MEDICINE [facility] Oct 19, 2024 03:00 PM AMBULATORY - SURGERY [facility] Nov 15, 2024 11:00 AM AMBULATORY - PSYCHIATRY [facility] Nov 29, 2024 11:00 AM AMBULATORY - NONE [facility] Dec 20, 2024 10:30 AM AMBULATORY - NONE [facility] Active, Pending, and Scheduled Orders This section includes a listing of several types of active, pending, and scheduled orders, including clinic medications orders, diagnostic test orders, procedure orders and consult orders; where the start date of the order is 45 days before the date of the Encounter or 45 days after the date of theEncounter. The data comes from all [facility] Test Date/Time Test Type Test Details Facility Name June 28, 2024 12:00 AM Laboratory - Chemi stry Order CREATININE (W EGFR) LT GREEN PLASMA [facility] June 28, 2024 12:00 AM Laboratory - Chemi stry Order CBC LAVENDER BLOOD [facility] Lab Results: +/- 30 days of the encounter This section includes the Chemistry and Hematology Lab Results on record with [place] for the patient. Radiology Reports and Pathology Reports are provided separately, in subsequent sections. Lab Results This section contains the Chemistry/Hematology Results that were resulted 30 days before or 30 daysafter the date of the Encounter. Date/Time Source Result Type Result - Unit Interpretation Reference Range Specimen Type Comment Jun 02, 2024 11:57 AM [facility] VITAMIN D (TOTAL) SERUM Specimen Type: SERUM Comment: VITD One expert panel recommended a target range of 30-40 ng/mL. Ordering Provider: LAURA GRIFFIN Report Released Date/Time: Dec 14, 2023 12:09 PM Reporting Lab: [address] [address] Performing Lab: [place] [id number] VITAMIN D (TOTAL) 35 ng/mL 30-60 Jun 02, 2024 11:57 AM [facility] TSH PLASMA Specimen Type: PLASMA Comment: GLUCOSE [...] Dec 14, 2023 12:09 PM Reporting Lab: [address] [address] Performing Lab: [place] [id number] TSH 1.388 u[IU]/mL 0.350-4.940 Jun 02, 2024 11:57 AM [facility] HEMOGLOBIN A1C BLOOD Specimen Type: B LOOD [...] Dec 14, 2023 12:09 PM Reporting Lab: [address] [address] Performing Lab: [place] [id number] HEMOGLOBIN A1C 6.0 H 3.6-5.7 Jun 02, 2024 11:57 AM [facility] LIPID PROFILE PLASMA Specimen Type: P MAKENZIE [...] Dec 14, 2023 12:09 PM Reporting Lab: [address] [address] Performing Lab: [address] [address] CHOLESTEROL 100 mg/dL 0-199 LDL CHOLESTEROL 50 mg/dL 0-99 HDL CHOLESTEROL 38 mg/dL L >40 TRIGLYCERIDE 101 mg/dL 0-149 Jun 02, 2024 11:57 AM [facility] URINALYSIS URINE Specimen Type: URINE No comment entered. Ordering Provider: LAURA GRIFFIN Report Released Date/Time: Dec 14, 2023 12:09 PM Reporting Lab: [address] [address] Performing Lab: [address] [address] SPECIFIC GRAVITY 1.028 H 1.016-1.022 URINE GLUCOSE >1000 mg/dL H Negative URINE PROTEIN Negative mg/dL Negative URINE PH 6.0 5.0-8.0 RBC/HPF 2 /[HPF] <=4 NITRITE, URINE Negative Negative ESTERASE(WBC) Negative Negative URINE CLARITY Clear Clear URINE BILIRUBIN Negative mg/dL <=0.4 URINE BLOOD Negative mg/dL <0.05 UROBILINOGEN Negative mg/dL <=1 URINE KETONES Negative mg/dL <=9 URINE COLOR Light-Yellow [none] Jun 02, 2024 11:57 AM [facility] COMPREHENSIVE METABOLIC PANEL PLASMA S pecimen Type: [...] Dec 14, 2023 12:09 PM Reporting Lab: [address] [phone] Performing Lab: [address] [address] ALBUMIN 3.9 g/dL 3.5-4.8 ALKALINE PHOSPHATASE 85 [...] (CALCULATED) 91 Jun 02, 2024 11:57 AM [facility] CBC BLOOD Specimen Type: BLOOD Comment: Giant or Large Platelets noted on Automated CBC. Ordering Provider: LAURA GRIFFIN Report Released Date/Time: Dec 14, 2023 12:09 PM Reporting Lab: [address] [address] Performing Lab: [address] [address] WBC COUNT 6.3 10*3/uL 3.6-11.0 RBC COUNT [...] 10*3/uL 0. 0-0.3 MPV 10.7 fL 7.4-11.4 Immunizations: All administered on the encounter date This section contains immunizations associated to the Encounter. Immunization Series Date Issued Administered By Site Reaction Lot Number CVX Code Drug Sanding Line Operator Comment(s) Source RSV, BIVALENT, PROTEIN SUBUNIT RSVPREF, DILUENT RECONSTITUTED , 0.5 ML, PF June 21, 2024 VELVET VALENTINE RIGHT DELTO ID [id number] [employer] ADMINISTERE D AT [place], NANCY Padilla [facility] Social History: Smoking Status (Most current) and Tobacco Use (All prior to encounter date) This section includes the most current, and the historical, smoking and tobacco- related health factors from the [place] facility where the Encounter took place. Current Smoking Status This section includes the most current smoking, or tobacco-related health factor, from the [place] facility where the Encounter took place. Date/Time Current Smoking Status Comment Waqas ulloa Jun 02, 2024 11:00 AM [place]-TOBACCO USE EVERY DAY SULLY MEDINA [facility] Tobacco Use History This section includes a history of the smoking, or tobacco-related health factors, that were collected on or before the date of the Encounter. The data comes from the [place] facility where the Encounter took place. Date/Time Smoking Status/Tobacco Use Comment F acility Jun 02, 2024 11:00 AM VA-TOBACCO USE LAUREL RY DAY CIGARETTES [facility] Jun 14, 2023 11:00 AM VA-TOBACCO DOESNT USE WI 30 MIN WAKEUP [facility] Jun 14, 2023 11:00 AM VA-TOBACCO USE 30 YEARS OR MORE [facility] Jun 14, 2023 11:00 AM VA-TOBACCO USE ADVICE [facility] Jun 14, 2023 11:00 AM VA-TOBACCO USE ELASTIC ATTACHER CHAINSTITCH NO [facility] Jun 14, 2023 11:00 [...] May 01, 2022 11:00 AM VA-TOBACCO USE ELASTIC ATTACHER CHAINSTITCH NO [facility] May 01, 2022 11:00 [...] May 09, 2021 02:30 PM VA-TOBACCO USE ELASTIC ATTACHER CHAINSTITCH YES [facility] May 09, 2021 02:30 [...] Apr 02, 2020 09:00 AM VA-TOBACCO USE ELASTIC ATTACHER CHAINSTITCH NO [facility] Apr 02, 2020 09:00 [...] Sep 14, 2018 10:16 AM VA-TOBACCO USE ELASTIC ATTACHER CHAINSTITCH NO [facility] Sep 14, 2018 10:16 [...] Sep 10, 2017 03:41 PM VA-TOBACCO USE ELASTIC ATTACHER CHAINSTITCH YES [facility] Sep 10, 2017 03:41 PM VA-TOBACCO USE MED NOTIFY STAR ER [facility] Sep 10, 2017 03:41 PM VA-TOBACCO USER EVERY DAY [facility] Sep 06, 2017 09:21 AM CURRENT TOBACCO USER [facility] Sep 06, 2017 09:21 AM SMOKING CESSATION NO [facility] Sep 06, 2017 09:21 AM TOBACCO OFFERRED P T MEDS (PROVIDER) [facility] Sep 06, 2017 09:21 AM TOBACCO OFFERRED S TOP SMOKING CLINIC [facility] Aug 12, 2016 10:34 AM CURRENT TOBACCO USER [facility] Jul 23, 2015 08:53 AM CURRENT TOBACCO USER [facility] Mar 27, 2014 01:28 PM CURRENT TOBACCO USER [facility] May 05, 2012 09:42 AM CURRENT TOBACCO USER [facility] Apr 23, 2011 11:03 AM CURRENT TOBACCO USER [facility] Apr 23, 2011 11:03 AM SMOKING MEDICATION INTERES Fabian MEDINA [facility] Mar 31, 2010 09:16 AM CURRENT TOBACCO USER [facility] Mar 31, 2010 09:16 AM SMOKING MEDICATION INTERES T Dr Óscar MEDINA [facility] Jun 10, 2009 02:07 PM CURRENT TOBACCO USER [facility] Jun 10, 2009 02:07 PM SMOKING MEDICATION INTERES T Dr. Prince MEDINA [facility] Aug 07, 2008 09:36 AM CURRENT TOBACCO USER [facility] May 18, 2008 02:38 PM CURRENT TOBACCO USER [facility] May 18, 2008 02:38 PM TOBACCO OFFERRED P T MEDS (PROVIDER) [facility] May 18, 2008 02:38 PM TOBACCO OFFERRED S TOP SMOKING CLINIC [facility] Advance Directives: All historical and current Section Date Range: From patient's date of to the date document was created. This section includes ALL of a patient's completed or amended [place] Advance and Rescinded Directives. The entries below indicate that a directive exists for the patient, but an actual copy is not included with this document. The data comes from all [place] facilities. Date Advance Directives Provider Source May 03, 2019 ADVANCE DIRECTIVE DISCUSSION DEN DE LUNA [facility] Dec 28, 2012 ADVANCE DIRECTIVE CRISTI RAE [facility] Dec 28, 2012 ADVANCE DIRECTIVE DISCUSSION VIDAL RAE [facility] Dec 28, 2012 RESCINDED ADVANCE DIRECTIVE DONALD RAE [facility] June 18, 2009 ADVANCE DIRECTIVE DISCUSSION FERNY PASTRANA [facility] Encounter Notes: All associated encounter notes This section contains the clinical notes associated to the Encounter. Date/Time Encounter Note(s) Provider Source June 21, 2024 10:51 AM INTERNAL MEDICINE OUTPATIENT NOTE: LOCAL TITLE: PRIMARY CARE OUTPATIENT NOTE (T) STANDARD TITLE: INTERNAL MEDICINE OUTPATIENT NOTE DATE OF NOTE: JUNE 21, 2024@10:51 ENTRY DATE: JUNE 21, 2024@10:51:57 AUTHOR: LAURA GRIFFIN EXP COSIGNER: URGENCY: STATUS: COMPLETED PRIMARY CARE OUTPATIENT NOTE (T) Has ADDENDA In-person Note 78yo Reason for Visit: Here for follow up visit. He was visiting his daughter in February and needed to go to the ER for SOB and leg swelling. He had gone to bed normal and woke up in the night and was unable to breathe. He was diagnosed with acute respiratory failure. He had medication changes and has done well since. He also has been using debrox drops to keep up on wax build up. 25 Active Problems PROBLEM LAST MOD PROVIDER Chronic diastolic heart failure 03/23/2024 LAURA GRIFFIN Benign prostatic hypertrophy with outflow 08/01/2021 LAURA GRIFFIN obstruction Difficulty cutting own toenails 12/11/2020 SARABJIT LOUISE Vitamin D deficiency 10/30/2020 LAURA GRIFFIN Abnormal findings on diagnostic imaging of lung 08/01/[address] 04/2020.Repeat in 07/2020-->findings stable. Repeat 07/2021 [...] Loss, Bilateral (ICD-9-CM 06/24/2011 CELSA SAMSON 389.18) Nursing Home (current) use of Anticoagulants 02/05/2011 CHICHI ROSARIO (ICD-9-CM V58.61) Paroxysmal atrial fibrillation, Onset 01/01/2015 SMILEY LAMAR Occurred with AMI July 2010. sinus rhythm at [place] f/u Generalized Anxiety Disorder * (ICD-9-CM 300.02) 06/05/2008 BLAINE ALTMAN Coronary Artery Disease 12/05/2014 CHRISTINA TORRES 1. CABG x 3 vessels 1999 2. Stent to left main 2003 ([facility]) 3. Stent to posterior descending L in 2010 ([facility]) HTN 07/23/2015 SMILEY LAMAR Dyslipidemia 07/23/2015 SMILEY LAMAR PTSD 03/16/2019 SMILEY LAMAR Depression 05/22/2008 RAMANA DELGADO Transient Ischemic Attack 05/22/2008 RAMANA DELGADO Tobacco use (SNOMED CT [id number]) 03/16/2019 SMILEY LAMAR REVIEW OF SYSTEMS: (denies the following unless indicated otherwise): mood concerns headache fatigue/weight loss dysphagia/hoarseness chest pain dyspnea abdominal pain difficult or bloody elimination PATIENT ALLERGIES DETAILED ALLERGIES/ADVERSE REACTIONS Type: OTHER Date/Time Reactant Severity Reaction 05/18/2008 14:35 VICRYL SUTURES UNKNOWN AMRS - MEDS (REC SUCCINCT) Active and Recently Inpatient, Outpatient and Clinic Medications (including Supplies): Active Clinic Medications Status ========= 1) SULFUR HEXAFLUORIDE INJ,SUSP INJECT 2ML IV PUSH ONE ACTIVE TIME NEEDED Instructions too long. See order details for full text. Active Outpatient Medications Status ========= 1) AMITRIPTYLINE HCL 25MG TAB TAKE ONE TO TWO TABLET(S) ACTIVE BY MOUTH AT BEDTIME NEEDED FOR SLEEP 2) APIXABAN 5MG TAB TAKE ONE TABLET BY MOUTH TWICE A DAY ACTIVE DIRECTED BY [facility] ([phone] EXT. [phone]) 3) ASPIRIN 81MG EC TAB TAKE ONE TABLET BY MOUTH EVERY ACTIVE DAY (WITH FOOD) 4) EMPAGLIFLOZIN 25MG TAB TAKE ONE TABLET BY MOUTH EVERY ACTIVE MORNING FOR HEART FAILURE 5) LISINOPRIL 5MG TAB TAKE ONE TABLET BY MOUTH EVERY DAY ACTIVE 6) METFORMIN HCL 500MG TAB TAKE ONE TABLET BY MOUTH ACTIVE EVERY DAY FOR TYPE 2 DIABETES MELLITUS (WITH FOOD; AVOID ALCOHOL) 7) METOPROLOL TARTRATE 25MG TAB TAKE ONE TABLET BY MOUTH ACTIVE TWICE A DAY 8) MIRTAZAPINE 15MG TAB TAKE ONE TABLET BY MOUTH AT ACTIVE BEDTIME 9) NICOTINE 14MG/24HR PATCH APPLY 1 PATCH (14MG/24HR) TO ACTIVE CLEAN DRY SKIN EVERY DAY FOR SMOKING CESSATION : APPLY EVERY MORNING, REMOVE AT BEDTIME 10) NITROGLYCERIN 0.4MG SL TAB DISSOLVE [...] (S) DAILY FOR MAJOR DEPRESSIVE DISORDER 15) SPIRONOLACTONE 25MG TAB TAKE ONE TABLET BY MOUTH ACTIVE EVERY DAY FOR HEART FAILURE 16) TAMSULOSIN HCL 0.4MG CAP TAKE ONE CAPSULE BY MOUTH AT ACTIVE BEDTIME Inactive Outpatient Medications Status ========= 1) ISOSORBIDE MONONITRATE 120MG SA TAB TAKE ONE TABLET BY MOUTH TWICE A DAY 2) NICOTINE 7MG/24HR PATCH APPLY 1 PATCH (7MG/24HR) TO CLEAN DRY SKIN EVERY DAY FOR SMOKING CESSATION : APPLY EVERY MORNING, REMOVE AT BEDTIME Active Non-VA Medications Status ========= 1) Non-VA DIPHENHYDRAMINE HCL 50MG CAP 50MG MOUTH AT ACTIVE BEDTIME 2) Non-VA FOLIC ACID 1MG TAB 1MG MOUTH EVERY DAY ACTIVE 3) Non-VA MELATONIN CAP/TAB ONE CAP/TAB MOUTH AT BEDTIME ACTIVE 4) Non-VA MULTIVITAMIN CAP/TAB 1 TAB/CAP MOUTH EVERY DAY ACTIVE 23 Total Medications Report Released Date/Time: Jun 02, 2024@17:45 Provider: LAURA GRIFFIN Specimen: URINE. [facility] [id number] Specimen Collection Date: Jun 02, 2024@11:57 Test name Result units Ref. range Site Code URINE PH 6.0 5.0 - 8.0 [541] URINE COLOR Light-Yellow Ref: [none] [541] URINE CLARITY Clear Ref: Clear [541] SPECIFIC GRAVITY 1.028 H 1.016 - 1.022 [541] URINE PROTEIN Negative mg/dL Ref: Negative [541] URINE GLUCOSE >1000 H mg/dL Ref: Negative [541] URINE KETONES Negative mg/dL Ref: <=9 [541] URINE BILIRUBIN Negative mg/dL Ref: <=0.4 [541] UROBILINOGEN Negative mg/dL Ref: <=1 [541] URINE BLOOD Negative mg/dL Ref: <=0.05 [541] ESTERASE(WBC) Negative Amberly/uL Ref: Negative [541] NITRITE, URINE Negative Ref: Negative [541] RBC/HPF 2 /HPF Ref: <=4 [541] == Report Released Date/Time: Jun 02, 2024@18:13 Provider: LAURA GRIFFIN Specimen: SERUM. [facility] [id number] Specimen Collection Date: Jun 02, 2024@11:43 Test name Result units Ref. range Site Code VITAMIN D (TOTAL) 35 ng/mL 30 - 60 [541] Comment: VITD One expert panel recommended a target range of 30-40 ng/mL. == Report Released Date/Time: Jun 02, 2024@18:17 Provider: LAURA GRIFFIN Specimen: PLASMA. [facility] [id number] Specimen Collection Date: Jun 02, 2024@11:43 Test name Result units Ref. range Site Code GLUCOSE 87 mg/dL 74 - 99 [541] SODIUM 140 mmol/L 134 - 144 [541] POTASSIUM 2.9 L mmol/L 3.5 - 5.1 [541] CHLORIDE 108 mmol/L 99 - 112 [541] CO2 24 mmol/L 22 - 30 [541] BUN 4.3 L mg/dL 8.4 - 25.7 [541] CREATININE 0.8 mg/dL 0.7 - 1.3 [541] CALCIUM 8.8 mg/dL 8.6 - 10.3 [541] EGFR (CALCULATED) 91 mL/min/1.73m2 BSA [541] Eval: eGFR was calculated using the CKD-EPI 2020 equation. No reference range Eval: is defined. Clinical judgement based on patient condition is advised. Eval: eGFR results >60 are imprecise. Many variables affect the calculated Eval: result. Interpretation of eGFR results >60 must be monitored over time. ANION GAP 11 mmol/L 10 - 20 [541] AST/SGOT 18 U/L 10 - 40 [541] ALT/SGPT 10 U/L 0 - 55 [541] ALKALINE PHOSPHATASE 85 U/L 40 - 150 [541] BILIRUBIN, TOTAL 0.4 mg/dL 0.2 - 1.2 [541] PROTEIN, TOTAL 7.0 g/dL 6.4 - 8.3 [541] ALBUMIN 3.9 g/dL 3.5 - 4.8 [541] CHOLESTEROL 100 mg/dL 0 - 199 [541] LDL CHOLESTEROL 50 mg/dL 0 - 99 [541] HDL CHOLESTEROL 38 L mg/dL Ref: >=40 [541] TRIGLYCERIDE 101 mg/dL 0 - 149 [541] TSH 1.388 uIU/mL 0.350 - 4.940 [541] Comment: GLUCOSE The ADA recommends a fasting [...] mg/dL HIGH: 160-189 mg/dL VERY HIGH: >=190 == Report Released Date/Time: Jun 02, 2024@18:06 Provider: LAURA GRIFFIN Specimen: BLOOD. [facility] [id number] Specimen Collection Date: Jun 02, 2024@11:43 Test name Result units Ref. range Site Code HEMOGLOBIN A1C 6.0 H % 3.6 - 5.7 [541] Eval: Values obtained from A1C measurements can vary. For typical A1C assays, a Eval: reported value of 7.0 could actually be between 6.72 and 7.28 if measured Eval: by a reference method. A reported value of 9.0 could actually be between Eval: 8.73 and 9.27. Ref: https://ngsp.org/CAPdata.asp WBC COUNT 6.3 K/cmm 3.6 - 11.0 [541] RBC COUNT 5.13 M/cmm 4.47 - 5.83 [541] HGB 11.4 L g/dL 13.6 - 17.4 [541] HCT 36.0 L % 40.0 - 51.0 [541] MCV 70.1 L fL 80.0 - 96.0 [541] MCH 22.2 L pg 27.0 - 31.0 [541] MCHC 31.7 g/dL 31.5 - 36.5 [541] RDW 19.0 H % 11.2 - 15.8 [541] PLT 183 K/cmm 150 - 400 [541] MPV 10.7 fL 7.4 - 11.4 [541] NEUTROPHIL % 67.7 % 54.0 - 78.0 [541] LYMPHS % 19.3 L % 21.0 - 51.0 [541] MONOCYTES % 9.3 H % 4.0 - 8.0 [541] EOSINOPHIL % 2.7 % 0.0 - 3.0 [541] BASOPHIL % 1.0 % 0.0 - 3.0 [541] ABSOLUTE NEUTROPHIL COUNT 4.3 K/cmm 1.9 - 8.6 [541] ABSOLUTE LYMPHOCYTE COUNT 1.2 K/cmm 0.8 - 5.0 [541] ABSOLUTE MONOCYTE COUNT 0.6 K/cmm 0.1 - 0.9 [541] ABSOLUTE EOSINOPHIL COUNT 0.2 K/cmm 0.0 - 0.3 [541] ABSOLUTE BASOPHIL COUNT 0.1 K/cmm 0.0 - 0.3 [541] NUCLEATED RBC/100WBC 0.1 /100 WBC None Established - None Established [541] Comment: Giant or Large Platelets noted on Automated CBC. Values obtained from A1C measurements can vary. For typical A1C assays, a reported value of 7.0 could actually be between 6.72 and 7.28 if measured by a reference method. A reported value of 9.0 could actually be between 8.73 and 9.27. Ref: http://www.ngsp.org/CAPdata.asp == PHYSICAL EXAM: Vital Signs: T: 97.8 F [36.6 C] (06/21/2024 10:34) P: 58 (06/21/2024 10:34) R: 16 (06/21/2024 10:34) BP: 126/69 (06/21/2024 10:34) Pain: 0 (06/21/2024 10:34) Height: 67 in [170.2 cm] (06/02/2024 10:52) Weight: 156 lb [70.76 kg] (06/21/2024 10:34) Pulse Ox: 97% (06/21/2024 10:34) General: in no distress Head, Ears, Eyes, Nose, and Throat: right canal with large chunk of cerumen easily removed with cerumen spoon. right canal with small flecks of cerumen removed with spoon, both TM visible and trasnparent. Neck: no bruit Chest/Lungs: CTA Cardiovascular: RRR Gastrointestinal: Extremities: no pedal edema ASSESSMENT/PLAN: reviewed labs with HF- stable with spironolactone and empagloflozin started after last hospitalization cerumen- debrox from the pyxis, will continue to use regularly and rinse canals with warm water while in the shower. DM- A1C at 6% and is stable with metformin and empagloflozin HTN- BP stable, continue meds atrial fib- stable, taking metoprolol for rate continue, also on DOAC HLD- LDL at 50 whichis goal, continue rosuvastatin HEALTH MAINTENANCE/CLINICAL REMINDERS: MEDICATION RECONCILIATION Medication Reconciliation report reviewed and discussed with patient/caregiver. VA prescription medications, non-VA prescription medications, OTC and herbal medications reviewed: Patient/caregiver verifies that the list is complete and accurate and voices understanding. Patient/caregiver in possession of printed medication list. FOLLOW-UP: 6 months with labs I am the Staff Provider. /thang GRIFFIN NURSE PRACTITIONER Signed: 06/21/2024 12:40 09/14/2024 ADDENDUM STATUS: COMPLETED Romeo gonzáles was hospitalized again while in [place] at his daughter's for CHF. 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: [employer] Lot: [id number] Exp Date: Jun 14, 2025 ND: [id number] Admin Route/Site: INTRAMUSCULAR/RIGHT DELTOID Dosage: 0.5mL Vaccine Information Statement(s): RSV (RESPIRATORY SYNCYTIAL VIRUS) VACCINE VIS Mar 17, 2024 (IRISH) Order By: Policy Administered By: Kristie Valentine /nayan/ KRISTIE VALENTINE LICENSED PRACTICAL NURSE Signed: 06/21/2024 10:43 KRISTIE VALENTINE CB June 21, 2024 10:24 AM PRIMARY CARE NURSI NG NOTE: LOCAL TITLE: OUTPATIENT NURSING INTAKE NOTE (T) STANDARD TITLE: PRIMARY CARE NURSING NOTE DATE OF NOTE: JUNE 21, 2024@10:24 ENTRY DATE: JUNE 21, 2024@10:24:32 AUTHOR: KRISTIE VALENTINE EXP COSIGNER: URGENCY: STATUS: COMPLETED Hemoglobin A1C Results: Collection DT Specimen Test Name Result Units Ref Range 06/02/2024 11:43 BLOOD HEMOGLOBIN A1C 6.0 H % 3.6 - 5.7 Comment: Giant or Large Platelets noted on Automated CBC. Comment: Values obtained from A1C measurements can vary. For typical A1C Comment: assays, a reported value of 7.0 could actually be between 6.72 and Comment: 7.28 if measured by a reference method. A reported value of 9.0 Comment: could actually be between 8.73 and 9.27. Ref: Comment: http://www.ngsp.org/CAPdata.asp 06/07/2023 08:36 BLOOD HEMOGLOBIN A1C 6.2 H [...] problems with drugs and/or alcohol? No 5. [place] [facility] pocket card was provided to patient. No/patient declined [facility] ('s [place], [place] [employer] [place]) What matters most to you? Comment: that I wake up every morning Clinical Reminders Activity Alcohol Use Screen (AUDIT-C): Alcohol Screen: SCREEN FOR ALCOHOL (AUDIT-C) An alcohol screening test (AUDIT-C) was negative (score=0). 1. How often did you have a drink containing alcohol in the past year? Consider a drink to be a 12 ounce can or bottle of regular beer, 8 ounces of malt liquor, a 5 ounce glass of table wine, or a 1.5 ounce shot of liquor (like scotch, gin, or vodka). Never 2. How many drinks containing alcohol did you have on a typical day when you were drinking in the past year? Response not required due to responses to other questions. 3. How often did you have six or more drinks on one occasion in the past year? Response not required due to responses to other questions. Patient Education Documentation: LEARNING NEEDS ASSESSMENT: The patient/family/significant other reports no changes in learning needs. /nayan/ KRISTIE VALENTINE LICENSED PRACTICAL NURSE Signed: 06/21/2024 10:41 KRISTIE VALENTINE [facility]
--- OUTSIDE RECORDS SUMMARY | 2024-06-28 07:30 | XMS_ITS | Encounter Summary ---
Author Name [facility] [place] [facility] Address [address] [place] [id number] Care Team Providers Care Level Vial Sealer Name Role Phone LAURA GRIFFIN Primary Care [...] N PLAN N Oct 16, 2012 MEDIGAP [id number] [phone] Fabian MCPHERSON PATIENT AARP MED SUPP [facility] Feb 15, 2022 PLANN [id number] Fabian MCPHERSON PATIENT AARP MED SUPP MEDIGAP PLAN N PLAN N Oct 16, 2012 PLAN N [id number] [phone] Fabian MCPHERSON PATIENT MEDICARE (WNR) MEDICARE (M) PART A May 16, 2005 PART A [id number] Fabian MCPHERSONS PATIENT MEDICARE (WNR) MEDICARE (M) PART B May 16, 2005 PART B [id number] Fabian MCPHERSONS PATIENT MEDICARE (WNR) MEDICARE (M) PART A May 16, 2005 PART A [id number] [place] PATIENT MEDICARE (WNR) MEDICARE (M) PART B May 16, 2005 PART B [id number] Fabian MCPHERSON PATIENT MEDICARE (WNR) MEDICARE (M) PART A May 16, 2005 PART A [id number] Fabian MCPHERSONS PATIENT MEDICARE (WNR) MEDICARE (M) PART B May 16, 2005 PART B [id number] [phone] Fabian MCPHERSON PATIENT MEDICARE PART D (WNR) PRESCRIPT ION PART D Feb 15, 2010 PART D [id number] Fabian MCPHERSON PATIENT Selected Encounter This section includes the information on record at [place] for the Encounter. Date/Time Encounter Type Encounter Description Reason Provider Source June 28, 2024 11:30 AM OFFICE O/P EST LOW 20 MIN PODIATRY ICD-10-CM E11.42 Type 2 diabetes mellitus with diabetic polyneuropathy TARSHA LOUISE [place] Encounter Template Text not used by [place] Assessments - Encounter Diagnoses This section includes the primary and secondary diagnoses documented for the Encounter. Date/Time Primary/Secondary Diagnosis Diagnosis Name Provider Source June 28, 2024 12:02 PM PRIMARY Type 2 diabetes mellitus with diabetic polyneuropathy JESSICA LOUISE [facility] June 28, 2024 12:02 PM SECONDARY Corns and callosities JESSICA LOUISE [facility] June 28, 2024 12:02 PM SECONDARY Nail disorder, unspecified JESSICA LOUISE [facility] Plan of Treatment: Future Appointments (+ 6 months) and Future Tests (+/- 45 days) The Plan of Treatment section includes future care activities for the patient from [facility] [place] [facility] This section includes future appointments and future orders which are active, pending or scheduled. Future Appointments This section includes appointments that were scheduled to occur 6 months from the date of the Encounter, up to a maximum of 20 appointments. The data comes from all [place] treatment facilities. Appointment Date/Time Appointment Type Appointme nt Facility Name Jul 26, 2024 11:00 AM AMBULATORY - PSYCHIATRY [facility] Sep 20, 2024 11:00 AM AMBULATORY - PSYCHIATRY [facility] Oct 12, 2024 10:30 AM AMBULATORY - MEDICINE [facility] Oct 19, 2024 03:00 PM AMBULATORY - SURGERY [facility] Nov 15, 2024 11:00 AM AMBULATORY - PSYCHIATRY [facility] Nov 29, 2024 11:00 AM AMBULATORY - NONE [facility] Dec 20, 2024 10:30 AM AMBULATORY - NONE [facility] Dec 27, 2024 10:30 AM AMBULATORY - NONE [facility] Active, Pending, and Scheduled Orders This section includes a listing of several types of active, pending, and scheduled orders, including clinic medications orders, diagnostic test orders, procedure orders and consult orders; where the start date of the order is 45 days before the date of the Encounter or 45 days after the date of theEncounter. The data comes from all [place] treatment facilities. Test Date/Time Test Type Test Details Facility Name June 28, 2024 12:00 AM Laboratory - Chemi stry Order CREATININE (W EGFR) LT GREEN PLASMA [facility] June 28, 2024 12:00 AM Laboratory - Chemi stry Order CBC LAVENDER BLOOD [facility] Lab Results: +/- 30 days of the encounter This section includes the Chemistry and Hematology Lab Results on record with [place] for the patient. Radiology Reports and Pathology Reports are provided separately, in subsequent sections. Lab Results This section contains the Chemistry/Hematology Results that were resulted 30 days before or 30 daysafter the date of the Encounter. Date/Time Source Result Type Result - Unit Interpretation Reference Range Specimen Type Comment Jun 02, 2024 11:57 AM [facility] TSH PLASMA Specimen Type: PLASMA Comment: [...] Dec 14, 2023 12:09 PM Reporting Lab: [address] [id number] Performing Lab: [place] [phone] TSH 1.388 u[IU]/mL 0.350-4.940 Jun 02, 2024 11:57 AM [facility] VITAMIN D (TOTAL) SERUM Specimen Type : SERUM Comment: VITD One expert panel recommended a target range of 30-40 ng/mL. Ordering Provider: LAURA GRIFFIN Report Released Date/Time: Dec 14, 2023 12:09 PM Reporting Lab: [place] [phone] Performing Lab: [place] [id number] VITAMIN D (TOTAL) 35 ng/mL 30-60 Jun 02, 2024 11:57 AM [facility] HEMOGLOBIN A1C BLOOD Specimen Type: B [...] Dec 14, 2023 12:09 PM Reporting Lab: [address] [id number] Performing Lab: [place] [id number] HEMOGLOBIN A1C 6.0 H 3.6-5.7 Jun 02, 2024 11:57 AM [facility] LIPID PROFILE PLASMA Specimen Type: P LASMA [...] Dec 14, 2023 12:09 PM Reporting Lab: [address] [phone] Performing Lab: [address] [address] CHOLESTEROL 100 mg/dL 0-199 LDL CHOLESTEROL 50 mg/dL 0-99 HDL CHOLESTEROL 38 mg/dL L >40 TRIGLYCERIDE 101 mg/dL 0-149 Jun 02, 2024 11:57 AM [facility] URINALYSIS URINE Specimen Type: URINE No comment entered. Ordering Provider: LAURA GRIFFIN Report Released Date/Time: Dec 14, 2023 12:09 PM Reporting Lab: [address] [phone] Performing Lab: [address] [address] SPECIFIC GRAVITY 1.028 H 1.016-1.022 URINE GLUCOSE >1000 mg/dL H Negative URINE PROTEIN Negative mg/dL Negative URINE PH 6.0 5.0-8.0 RBC/HPF 2 /[HPF] <=4 NITRITE, URINE Negative Negative ESTERASE(WBC) Negative Negative URINE CLARITY Clear Clear URINE BILIRUBIN Negative mg/dL <=0.4 URINE BLOOD Negative mg/dL <0.05 UROBILINOGEN Negative mg/dL <=1 URINE KETONES Negative mg/dL <=9 URINE COLOR Light-Yellow [none] Jun 02, 2024 11:57 AM [facility] COMPREHENSIVE METABOLIC PANEL PLASMA S pecimen [...] Dec 14, 2023 12:09 PM Reporting Lab: [place] [phone] Performing Lab: [place] [phone] ALBUMIN 3.9 g/dL 3.5-4.8 ALKALINE PHOSPHATASE 85 [...] (CALCULATED) 91 Jun 02, 2024 11:57 AM [facility] CBC BLOOD Specimen Type: BLOOD Comment: Giant or Large Platelets noted on Automated CBC. Ordering Provider: LAURA GRIFFIN Report Released Date/Time: Dec 14, 2023 12:09 PM Reporting Lab: [place] [phone] Performing Lab: [place] [phone] WBC COUNT 6.3 10*3/uL 3.6-11.0 RBC COUNT [...] 10*3/uL 0. 0-0.3 MPV 10.7 fL 7.4-11.4 Social History: Smoking Status (Most current) and Tobacco Use (All prior to encounter date) This section includes the most current, and the historical, smoking and tobacco- related health factors from the [place] facility where the Encounter took place. Current Smoking Status This section includes the most current smoking, or tobacco-related health factor, from the [place] facility where the Encounter took place. Date/Time Current Smoking Status Comment Facil ity Jun 02, 2024 11:00 AM VA-TOBACCO USE EVERY DAY CIGARET VALENTIN [facility] Tobacco Use History This section includes a history of the smoking, or tobacco-related health factors, that were collected on or before the date of the Encounter. The data comes from the [place] facility where the Encounter took place. Date/Time Smoking Status/Tobacco Use Comment F acility Jun 02, 2024 11:00 AM VA-TOBACCO USE LAUREL RY DAY CIGARETTES [facility] Jun 14, 2023 11:00 AM VA-TOBACCO DOESNT USE WI 30 MIN WAKEUP [facility] Jun 14, 2023 11:00 AM VA-TOBACCO USE 30 YEARS OR MORE [facility] Jun 14, 2023 11:00 AM VA-TOBACCO USE ADVICE [facility] Jun 14, 2023 11:00 AM VA-TOBACCO USE TURN OPERATOR NO [facility] Jun 14, 2023 [...] May 01, 2022 11:00 AM VA-TOBACCO USE TURN OPERATOR NO [facility] May 01, 2022 11:00 AM VA-TOBACCO USE MED NO [facility] May 01, 2022 11:00 AM VA-TOBACCO USER EVERY DAY [facility] May 09, 2021 02:30 PM VA-TOBACCO DOESNT USE WI 30 MIN WAKEUP [facility] May 09, 2021 02:30 PM VA-TOBACCO USE 30 YEARS OR MORE [facility] May 09, 2021 02:30 PM VA-TOBACCO USE ADVICE [facility] May 09, 2021 02:30 PM VA-TOBACCO USE TURN OPERATOR YES [facility] May 09, 2021 [...] Apr 02, 2020 09:00 AM VA-TOBACCO USE TURN OPERATOR NO [facility] Apr 02, 2020 [...] Sep 14, 2018 10:16 AM VA-TOBACCO USE TURN OPERATOR NO [facility] Sep 14, 2018 10:16 AM VA-TOBACCO USE MED NOTIFY PROVID ER [facility] Sep 14, 2018 10:16 AM VA-TOBACCO USER EVERY DAY [facility] Sep 10, 2017 03:41 PM VA-TOBACCO DOESNT USE WI 30 MIN WAKEUP [facility] Sep 10, 2017 03:41 PM VA-TOBACCO USE 30 YEARS OR MORE [facility] Sep 10, 2017 03:41 PM VA-TOBACCO USE ADVICE [facility] Sep 10, 2017 03:41 PM VA-TOBACCO USE TURN OPERATOR YES [facility] Sep 10, 2017 03:41 PM VA-TOBACCO USE MED NOTIFY PROVID ER [facility] Sep 10, 2017 03:41 PM VA-TOBACCO USER EVERY DAY [facility] Sep 06, 2017 09:21 AM CURRENT TOBACCO USER [facility] Sep 06, 2017 09:21 AM SMOKING CESSATION NO [facility] Sep 06, 2017 09:21 AM TOBACCO OFFERRED P T MEDS (PROVIDER) [facility] Sep 06, 2017 09:21 AM TOBACCO OFFERRED S TOP SMOKING [facility] Aug 12, 2016 10:34 AM CURRENT TOBACCO USER [facility] Jul 23, 2015 08:53 AM CURRENT TOBACCO USER [facility] Mar 27, 2014 01:28 PM CURRENT TOBACCO USER [facility] May 05, 2012 09:42 AM CURRENT TOBACCO USER [facility] Apr 23, 2011 11:03 AM CURRENT TOBACCO USER [facility] Apr 23, 2011 11:03 AM SMOKING MEDICATION INTERES T Annie MEDINA [facility] Mar 31, 2010 09:16 AM CURRENT TOBACCO USER [facility] Mar 31, 2010 09:16 AM SMOKING MEDICATION INTERES T Dr Ócsar MEDINA [facility] Jun 10, 2009 02:07 PM CURRENT TOBACCO USER [facility] Jun 10, 2009 02:07 PM SMOKING MEDICATION INTERES T Dr. Prince MEDINA [facility] Aug 07, 2008 09:36 AM CURRENT TOBACCO USER [facility] May 18, 2008 02:38 PM CURRENT TOBACCO USER [facility] May 18, 2008 02:38 PM TOBACCO OFFERRED P T MEDS (PROVIDER) [facility] May 18, 2008 02:38 PM TOBACCO OFFERRED S TOP SMOKING [facility] Advance Directives: All historical and current Section Date Range: From patient's date of to the date document was created. This section includes ALL of a patient's completed or amended [place] Advance and Rescinded Directives. The entries below indicate that a directive exists for the patient, but an actual copy is not included with this document. The data comes from all [place] facilities. Date Advance Directives Provider Source May 03, 2019 ADVANCE DIRECTIVE DISCUSSION ROLL,MARJORI E K [facility] Dec 28, 2012 ADVANCE DIRECTIVE CRISTI RAE Halima [facility] Dec 28, 2012 ADVANCE DIRECTIVE DISCUSSION VIDAL [facility] Dec 28, 2012 RESCINDED ADVANCE DIRECTIVE DONALD [facility] June 18, 2009 ADVANCE DIRECTIVE DISCUSSION FERNY PASTRANA [facility] Encounter Notes: All associated encounter notes This section contains the clinical notes associated to the Encounter. Date/Time Encounter Note(s) Provider Source June 28, 2024 11:27 AM PODIATRY NOTE: LOCAL TITLE: PODIATRY CLINIC NOTE (T) STANDARD TITLE: PODIATRY NOTE DATE OF NOTE: JUNE 28, 2024@11:27 ENTRY DATE: JUNE 28, 2024@11:27:48 AUTHOR: LING LOUISE COSIGNER: URGENCY: STATUS: COMPLETED [facility] SOAP Note SUBJECTIVE: The patient is a 78 year old MALE. Chief Complaint: Diabetic footcare Past Medical History: Patient presents today for diabetic footcare. Patient denies any pedal complaints today. Patient states that he was admitted to the hospital for congestive heart failure when he went to see his daughter earlier this year. They took 7 pounds of fluid off of him. They changed his medications. He denies issues since then. He is wearing his compression stockings. PATIENT ALLERGIES DETAILED ALLERGIES/ADVERSE REACTIONS Type: OTHER [...] TWICE A DAY ACTIVE DIRECTED BY [facility] ([phone] EXT. [id number]) 3) ASPIRIN 81MG EC TAB TAKE ONE TABLET BY MOUTH EVERY ACTIVE DAY (WITH FOOD) 4) CARBAMIDE PEROXIDE 6.5% OTIC SOLN INSTILL 5 DROPS IN ACTIVE AFFECTED EAR(S) TWICE A DAY FOR 4 DAYS FOR EAR WAX BLOCKAGE FOR UP TO 4 DAYS; PYXIS RX 5) EMPAGLIFLOZIN 25MG TAB TAKE ONE TABLET BY MOUTH EVERY ACTIVE (S) MORNING FOR HEART FAILURE 6) LISINOPRIL 5MG TAB TAKE ONE TABLET BY MOUTH EVERY DAY ACTIVE 7) METFORMIN HCL 500MG TAB TAKE ONE TABLET BY MOUTH ACTIVE (S) EVERY DAY FOR TYPE 2 DIABETES MELLITUS (WITH FOOD; AVOID ALCOHOL) 8) METOPROLOL TARTRATE 25MG TAB TAKE ONE TABLET BY MOUTH ACTIVE TWICE A DAY 9) MIRTAZAPINE 15MG TAB TAKE ONE TABLET BY MOUTH AT ACTIVE BEDTIME 10) NICOTINE 14MG/24HR PATCH APPLY 1 PATCH (14MG/24HR) TO ACTIVE CLEAN DRY SKIN EVERY DAY FOR SMOKING CESSATION : APPLY EVERY MORNING, REMOVE AT BEDTIME 11) NITROGLYCERIN 0.4MG SL TAB DISSOLVE ONE TABLET UNDER ACTIVE THE TONGUE NEEDED FOR ACUTE ATTACK OF ANGINA FOR CHEST PAIN; IF CHEST PAIN IS NOT IMPROVED 5 MINUTES AFTER TAKING 1 TABLET, CALL 911 DISPENSE IN ORIGINAL CONTAINER 12) PANTOPRAZOLE NA 20MG EC TAB TAKE ONE TABLET BY MOUTH ACTIVE EVERY MORNING, ON AN EMPTY STOMACH 13) RANOLAZINE 500MG SA TAB TAKE ONE TABLET BY MOUTH ACTIVE (S) EVERY 12 HOURS FOR RAPID VENTRICULAR HEARTBEAT 14) ROSUVASTATIN CA 40MG TAB TAKE ONE TABLET BY MOUTH ACTIVE EVERY DAY FOR CHOLESTEROL 15) SERTRALINE HCL 50MG TAB TAKE ONE TABLET BY MOUTH ACTIVE (S) DAILY FOR MAJOR DEPRESSIVE DISORDER 16) SPIRONOLACTONE 25MG TAB TAKE ONE TABLET BY MOUTH ACTIVE (S) EVERY DAY FOR HEART FAILURE 17) TAMSULOSIN HCL 0.4MG CAP TAKE ONE CAPSULE BY MOUTH AT ACTIVE (S) BEDTIME Inactive Outpatient Medications Status ========= 1) [...] CAP/TAB 1 TAB/CAP MOUTH EVERY DAY ACTIVE 24 Total Medications MEDICATION RECONCILIATION MEDICATION RECONCILIATION REPORT [...] LEVEL: DATE TIME HEALTH FACTOR ---- ---- 09/09/2023 13:00 DAY LIMB CARE LEVEL 2 12/14/2023 15:00 DAY LIMB CARE LEVEL 2 03/21/2024 11:00 DAY LIMB CARE LEVEL 2 ACTIVE PROBLEM Chronic diastolic heart failure 03/23/2024 Benign Prostatic Hypertrophy with 08/01/2021 Outflow Obstruction (SCT [id number]) Difficulty cutting own toenails 12/11/2020 Vitamin D Deficiency ([facility] [id number]) 10/30/2020 Abnormal findings on diagnostic imaging 08/01/2020 of lung Pulmonary asbestosis 05/01/2020 Thoracic aorta abnormality 05/01/2020 Chronic insomnia 09/26/2019 Obstructive sleep apnea of adult 05/24/2019 Hypokalemia 09/14/2018 Diabetic neuropathy 10/11/2017 Diabetes mellitus 07/23/2015 Depressive disorder 11/12/2022 Noncompliance with Treatment (SNOMED CT 10/31/2012 [id number]) Sensorineural Hearing Loss, Bilateral 06/24/2011 (ICD-9-CM 389.18) Dump Operator (current) use of 02/05/2011 Anticoagulants (ICD-9-CM V58.61) Paroxysmal atrial fibrillation (SNOMED 01/01/2015 CT 097790616) Generalized Anxiety Disorder * 06/05/2008 (ICD-9-CM 300.02) Coronary atherosclerosis (SNOMED CT 12/05/2014 807954327) Benign essential hypertension (SNOMED 07/23/2015 CT 6258099) Hyperlipidemia (SNOMED CT 49669026) 07/23/2015 Posttraumatic stress disorder (SNOMED 03/16/2019 CT 35103866) Depression 05/22/2008 Transient Ischemic Attack 05/22/2008 Tobacco use (SNOMED CT 719444619) 03/16/2019 OBJECTIVE: VASCULAR : DP palpable 2/4 [...] lesion at the plantar medial 1st MPJ left, horny hyperkeratosis to the sulcus of 2nd digit right foot. NEUROLOGIC : Protective sensation absent at all sites b/l as tested with SWMF.Light touch intact to the hallux b/l. MUSCULOSKELETAL : 5/5 muscle strength for all dorsiflexors, plantarflexors, inverters, everters, painfree. Decreased ROM 1st MPJ b/l, right greater than left. Subjective fat pad atrophy met head right. PAVE FOOT EXAM A foot risk level was completed. The following risk level was identified for this patient: +POD RISK SCORE+ --LEVEL 3 - (HIGH RISK) Sensory loss and diminished circulation and may have + Foot deformity Or any of the following by itself: + History of prior ulcer, + Osteomyelitis + History of prior amputation + Severe PVD + Charcot's joint disease with foot deformity + End Stage Renal Disease -POD RISK SCORE- Patient currently being followed by Podiatry or other foot care provider. LEVEL 3 FOOT EDUCATION: 1. Advised patient that extra depth footwear with soft molded inserts and braces may be required. 2. Advised patient not to walk barefoot. [...] Onychomycosis Hyperkeratotic lesions Hallux limitus Anticoagulation therapy Edema/CHF Plan: Treatment today consisted of: -Patient examination and evaluation. -Debridement of nails 1-5 b/l without incident with nail nipper and rotary drill. -Debride hyperkeratotic lesions x 2 with 15 blade. -Continue extra-depth shoes. -Continue compression stockings -Patient to return to clinic in 3.5 months. Response to care/Rationale for care: Patient stable, indications for regular follow-up due to loss of protective sensation. /nayan/ LING LOUISE [employer] MERCHANDISER Signed: 06/28/2024 12:03 LING LOUISE [facility]
--- OUTSIDE RECORDS SUMMARY | 2024-07-26 07:00 | XMS_ITS | Encounter Summary ---
Author Name [facility] ([place] Organization [facility] Address [address] [place] [address] Care Team Providers Care Craps Manager Name Role Phone LAURA GRIFFIN Primary [...] N PLAN N Oct 16, 2012 MEDIGAP [id number] [phone] Fabian MCPHERSON PATIENT AARP [facility] Feb 15, 2022 PLANN [id number] Fabian MCPHERSON PATIENT AARP MED SUPP MEDIGAP PLAN N PLAN N Oct 16, 2012 PLAN N [id number] [phone] Fabian MCPHERSON PATIENT MEDICARE (WNR) MEDICARE (M) PART A May 16, 2005 PART A [id number] [phone] Fabian MCPHERSONS PATIENT MEDICARE (WNR) MEDICARE (M) PART B May 16, 2005 PART B [id number] [phone] Fabian MCPHERSONS PATIENT MEDICARE (WNR) MEDICARE (M) PART A May 16, 2005 PART A [id number] [phone] [place] PATIENT MEDICARE (WNR) MEDICARE (M) PART B May 16, 2005 PART B [id number] Fabian MCPHERSON PATIENT MEDICARE (WNR) MEDICARE (M) PART A May 16, 2005 PART A [id number] [phone] Fabian MCPHERSON PATIENT MEDICARE (WNR) MEDICARE (M) PART B May 16, 2005 PART B [id number] [phone] Fabian MCPHERSON PATIENT MEDICARE PART D (WNR) PRESCRIPT ION PART D Feb 15, 2010 PART D [id number] Fabian MCPHERSON PATIENT Selected Encounter This section includes the information on record at [place] for the Encounter. Date/Time Encounter Type Encounter Description Reason Provider Source Jul 26, 2024 11:00 AM MTMS BY EREN BERG [facility] - IND ICD-10-CM F43.10 Post-traumatic stress disorder, unspecified REGAN MEREDITH [place] Encounter Template Text not used by [place] Assessments - Encounter Diagnoses This section includes the primary and secondary diagnoses documented for the Encounter. Date/Time Primary/Secondary Diagnosis Diagnosis Name Provider Source Jul 27, 2024 02:55 PM PRIMARY Post-traumatic stress disorder, unspecified REGAN MEREDITH [facility] Jul 27, 2024 02:55 PM SECONDARY Depression, unspecified REGAN MEREDITH [facility] Jul 27, 2024 02:55 PM SECONDARY Tobacco use REGAN MEREDITH [facility] Plan of Treatment: Future Appointments (+ 6 months) and Future Tests (+/- 45 days) The Plan of Treatment section includes future care activities for the patient from all [place] treatmentfacilities. This section includes future appointments and future orders which are active, pending or scheduled. Future Appointments This section includes appointments that were scheduled to occur 6 months from the date of the Encounter, up to a maximum of 20 appointments. The data comes from all [place] treatment facilities. Appointment Date/Time Appointment Type Appointme nt Facility Name Sep 20, 2024 11:00 AM AMBULATORY - PSYCHIATRY ELENA WALDEN [facility] Oct 12, 2024 10:30 AM AMBULATORY - MEDICINE JAKE BELTRAN [facility] Oct 19, 2024 03:00 PM AMBULATORY - SURGERY CARMEN AMARO [facility] Nov 15, 2024 11:00 AM AMBULATORY - PSYCHIATRY CL WIN [facility] Nov 29, 2024 11:00 AM AMBULATORY - NONE [place] D [facility] Dec 20, 2024 10:30 AM AMBULATORY - NONE [facility] Dec 27, 2024 10:30 AM AMBULATORY - NONE [facility] Active, Pending, and Scheduled Orders This section includes a listing of several types of active, pending, and scheduled orders, including clinic medications orders, diagnostic test orders, procedure orders and consult orders; where the start date of the order is 45 days before the date of the Encounter or 45 days after the date of theEncounter. The data comes from all [place] treatment facilities. Test Date/Time Test Type Test Details Facility Name June 28, 2024 12:00 AM Laboratory - Chemi stry Order CREATININE (W EGFR) LT [facility]EN [facility] June 28, 2024 12:00 AM Laboratory - Chemi stry Order CBC LAVENDER BLOOD [facility] Social History: Smoking Status (Most current) and Tobacco Use (All prior to encounter date) This section includes the most current, and the historical, smoking and tobacco- related health factors from the [place] facility where the Encounter took place. Current Smoking Status This section includes the most current smoking, or tobacco-related health factor, from the [place] facility where the Encounter took place. Date/Time Current Smoking Status Comment Facil ity Jun 02, 2024 11:00 AM VA-TOBACCO USE EVERY DAY CIGARET VALENTIN [facility] Tobacco Use History This section includes a history of the smoking, or tobacco-related health factors, that were collected on or before the date of the Encounter. The data comes from the [place] facility where the Encounter took place. Date/Time [...] Jun 14, 2023 11:00 AM VA-TOBACCO USE SYSTEMS NAVIGATOR NO [facility] Jun 14, 2023 11:00 [...] May 01, 2022 11:00 AM VA-TOBACCO USE SYSTEMS NAVIGATOR NO [facility] May 01, 2022 11:00 [...] May 09, 2021 02:30 PM VA-TOBACCO USE SYSTEMS NAVIGATOR YES [facility] May 09, 2021 02:30 [...] Apr 02, 2020 09:00 AM VA-TOBACCO USE SYSTEMS NAVIGATOR NO [facility] Apr 02, 2020 09:00 [...] Sep 14, 2018 10:16 AM VA-TOBACCO USE SYSTEMS NAVIGATOR NO [facility] Sep 14, 2018 10:16 AM VA-TOBACCO USE MED NOTIFY PROVID STERLING CALDERÓNCAROL [facility] Sep 14, 2018 10:16 AM VA-TOBACCO USER EVERY DAY [facility] Sep 10, 2017 03:41 PM VA-TOBACCO DOESNT USE WI 30 MIN WAKEUP CAR[facility] Sep 10, 2017 03:41 PM VA-TOBACCO USE 30 YEARS OR MORE [facility] Sep 10, 2017 03:41 PM [facility] USE ADVICE [facility] Sep 10, 2017 03:41 PM VA-TOBACCO USE SYSTEMS NAVIGATOR YES [facility] Sep 10, 2017 03:41 PM VA-TOBACCO USE MED NOTIFY STAR [facility] Sep 10, 2017 03:41 PM VA-TOBACCO USER EVERY DAY [facility] Sep 06, 2017 09:21 AM CURRENT TOBACCO USER [facility] Sep 06, 2017 09:21 AM SMOKING CESSATION NO [facility] Sep 06, 2017 09:21 AM TOBACCO OFFERRED P T MEDS (PROVIDER) [facility] Sep 06, 2017 09:21 AM TOBACCO OFFERRED S TOP SMOKING CLINIC [facility] Aug 12, 2016 10:34 AM CURRENT TOBACCO USER [facility] Jul 23, 2015 08:53 AM CURRENT TOBACCO USER CAR[facility] Mar 27, 2014 01:28 PM CURRENT TOBACCO USER CAR[facility] May 05, 2012 09:42 AM CURRENT TOBACCO USER [facility] Apr 23, 2011 11:03 AM CURRENT TOBACCO USER CAR[facility] Apr 23, 2011 11:03 AM SMOKING MEDICATION INTERES T Annie [facility] Mar 31, 2010 09:16 AM CURRENT TOBACCO USER [facility] Mar 31, 2010 09:16 AM SMOKING MEDICATION INTERES T Dr Óscar [facility] Jun 10, 2009 02:07 PM CURRENT TOBACCO USER [facility] Jun 10, 2009 02:07 PM SMOKING MEDICATION INTERES T Dr. Prince [facility] Aug 07, 2008 09:36 AM CURRENT TOBACCO USER [facility] May 18, 2008 02:38 PM CURRENT TOBACCO USER [facility] May 18, 2008 02:38 PM TOBACCO OFFERRED P T MEDS (PROVIDER) [facility] May 18, 2008 02:38 PM TOBACCO OFFERRED S TOP SMOKING CLINIC [facility] Advance Directives: All historical and current Section Date Range: From patient's date of to the date document was created. This section includes ALL of a patient's completed or amended VA Advance and Rescinded Directives. The entries below indicate that a directive exists for the patient, but an actual copy is not included with this document. The data comes from all [place] facilities. Date Advance Directives Provider Source May 03, 2019 ADVANCE DIRECTIVE DISCUSSION DEN DE LUNA [facility] Dec 28, 2012 ADVANCE DIRECTIVE CRISTI [facility] Dec 28, 2012 ADVANCE DIRECTIVE DISCUSSION VIDAL [facility] Dec 28, 2012 RESCINDED ADVANCE DIRECTIVE DONALD [facility] June 18, 2009 ADVANCE DIRECTIVE DISCUSSION FERNY PASTRANA [facility] Encounter Notes: All associated encounter notes This section contains the clinical notes associated to the Encounter. Date/Time Encounter Note(s) Provider Source Jul 27, 2024 02:56 PM ADDENDUM: LOCAL TITLE: Addendum STANDARD TITLE: ADDENDUM DATE OF NOTE: JUL 27, 2024@14:56:05 ENTRY DATE: JUL 27, 2024@14:56:06 AUTHOR: SAPNA MEREDITH EXP COSIGNER: URGENCY: STATUS: COMPLETED Energy requesting renewal on the below order. PACT provider alerted. --> ISOSORBIDE MONONITRATE 120MG SA TAB Issu:06-14-23 Qty: 180 for 90 days Sig: TAKE ONE Refills: 0 Last:03-21-24 TABLET BY MOUTH TWICE A DAY Expr:06-14-24 /nayan/ SAPNA MEREDITH CLINICAL TERRITORY SALES MANAGER Signed: 07/27/2024 14:56 Receipt Acknowledged By: 07/27/2024 15:11 /es/ LAURA GRIFFIN NURSE PRACTITIONER --- Original Document --- 07/26/24 [facility] PSYCHIATRY NOTE (T): PSYCHIATRIC EVALUATION NOTE Time in: 1100 Time out: 1128 Time spent: 28 min TS is a 79yom w/ a MH h/o PTSD and MDD, tobacco use DO. Chart and available information reviewed. CC: let's let it run.. I'm okay HPI: Vlad was last spoken with on 06/02/24 where he reported having been alright since last follow-up, denying change to medication use. Vlad continued to report adherence with tolerability. Physically feeling fine. Did report in the [...] symptom concerns on prompted review. His sleep remained supported by sleep aides, and he was denying issues with medication use ongoing. seen for F2F appt as planned. Vlad reported medication adherence, citing tolerability with continued use, and overall stability. jokes appropriately in session, responding to inquiry of mood with mean, rotten, terrible, and nasty.. I'm fine, everything is going well . He is watching Jim right now, as his daughter is in [place]. He likes it out here, with the big fenced in yard.. I was out in [place] last week and got home Wednesday . Feeling physically well. Sleep reported as well; using medication therapies with some assistance. The only thing I can say is I must be all screwed up, some days I go right to sleep and sleep well, or I can't get to sleep or I wake up and can't get back to sleep . Unsure of etiology behind this. I'm not anxious or worried or anything like that . Denied napping often. His issues with sleep tend to be variable; there is no rhyme or reason.. usually only one night, not like every third night or anything like that . Denied impairment or neurovegetative sequelae of this intermittent sleep issue. Right now let's let it run for a little bit, and if it persists, we can talk to sleep medicine . Mood is good otherwise, without concerns for depressive symptoms. I'm still happy with how things are going . Denied negative thought content. Daughter wants him to go down to [place], for [employer]. We resolved to monitor without change. Denied SI/HI. SUBSTANCE USE HX: Nicotine- baseline between 0.25-0.5ppd. NRT failed previously. MAT use previously. Confirmed ongoing use as 0.5ppd. Has NRT patch only, and we will monitor step-2 to 3 taper, which is his desire. Stated intent to use PRN supports as well. He continues to contemplate the right time to pursue this plan; sad to say, I'm still the same.. I do give it thought, but something happens to side track me . Alcohol- denied Illicit- denied PSYCHIATRIC MEDICATION HISTORY: According to CPRS and Spayee remote data of VA outpatient Rx, the [...] TWICE A DAY ACTIVE [facility] ([phone] EXT. [id number]) 4) ASPIRIN 81MG EC TAB TAKE ONE [...] TAB/CAP MOUTH EVERY DAY ACTIVE LABS: ANION GAP:11 (06/02/24 11:43) PLASMA BUN: 4.3 (06/02/24 11:43) PLASMA CA: 8.8 (06/02/24 11:43) PLASMA CL: 108 (06/02/24 11:43) PLASMA CO2: 24 (06/02/24 11:43) PLASMA CREA: 0.8 (06/02/24 11:43) PLASMA EGFR: 91 (06/02/24 11:43) PLASMA GLUCOSE: 87 (06/02/24 11:43) PLASMA K: 2.9 (06/02/24 11:43) PLASMA NA: 140 (06/02/24 11:43) PLASMA ALBUMIN: 3.9 (06/02/24 11:43) PLASMA ALKPHOS: 85 (06/02/24 11:43) PLASMA ALT/SGPT: 10 (06/02/24 11:43) PLASMA AST/SGOT: 18 (06/02/24 11:43) PLASMA BILI T: 0.4 (06/02/24 11:43) PLASMA T PROTEIN:7.0 (06/02/24 11:43) PLASMA TSH: 1.388 (06/02/24 11:43) PLASMA VITALS: T: 97.8 F [36.6 C] (06/21/2024 10:34) P: 58 (06/21/2024 10:34) R: 16 (06/21/2024 10:34) BP: 126/69 (06/21/2024 10:34) W: 156 lb [70.76 kg] (06/21/2024 10:34) BMI: 24.5 Mental Status Exam: Saul: 79yom who appears stated age, dressed in casual [...] friends Connectedness to community, school, family, friends [place] skills (such as problem-solving, conflict resolution, anger management, impulse control, etc.) Access to appropriate medical and mental health care Violence assessment completed: yes Prior history of violence: denied The risk of violence towards others is considered: low Energy made no comments during our conversation that were concerning and/or would suggest that the is at elevated imminent risk of harm to self or others ASSESSMENT: with PTSD, h/o MDD, and tobacco use DO. Energy cited baseline predominant complaint of sleep dysregulation. 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 /nayan/ SAPNA MEREDITH CLINICAL TERRITORY SALES MANAGER Signed: 07/27/2024 14:55 SAPNA MEREDITHUSKY [facility] Jul 26, 2024 10:57 AM PSYCHIATRY NOTE: LOCAL TITLE: [facility] PSYCHIATRY NOTE (T) STANDARD TITLE: PSYCHIATRY NOTE DATE OF NOTE: JUL 26, 2024@10:57 ENTRY DATE: JUL 26, 2024@10:57:36 AUTHOR: SAPNA MEREDITH EXP COSIGNER: URGENCY: STATUS: COMPLETED [facility] PSYCHIATRY NOTE (T) Has ADDENDA PSYCHIATRIC EVALUATION NOTE Time in: 1100 Time out: 1128 Time spent: 28 min TS is a 79yom w/ a MH h/o PTSD and MDD, tobacco use DO. Chart and available information reviewed. CC: let's let it run.. I'm okay HPI: Vlad was last spoken with on 06/02/24 where he reported having been alright since last follow-up, denying change to medication use. Vlad continued to report adherence with tolerability. Physically feeling fine. Did report in the [...] symptom concerns on prompted review. His sleep remained supported by sleep aides, and he was denying issues with medication use ongoing. Energy seen for F2F appt as planned. Vlad reported medication adherence, citing tolerability with continued use, and overall stability. jokes appropriately in session, responding to inquiry of mood with mean, rotten, terrible, and nasty.. I'm fine, everything is going well . He is watching Jim right now, as his daughter is in [place]. He likes it out here, with the big fenced in yard.. I was out in [place] last week and got home Wednesday . Feeling physically well. Sleep reported as well; using medication therapies with some assistance. The only thing I can say is I must be all screwed up, some days I go right to sleep and sleep well, or I can't get to sleep or I wake up and can't get back to sleep . Unsure of etiology behind this. I'm not anxious or worried or anything like that . Denied napping often. His issues with sleep tend to be variable; there is no rhyme or reason.. usually only one night, not like every third night or anything like that . Denied impairment or neurovegetative sequelae of this intermittent sleep issue. Right now let's let it run for a little bit, and if it persists, we can talk to sleep medicine . Mood is good otherwise, without concerns for depressive symptoms. I'm still happy with how things are going . Denied negative thought content. Daughter wants him to go down to [place], for [employer]. We resolved to monitor without change. Denied SI/HI. SUBSTANCE USE HX: Nicotine- baseline between 0.25-0.5ppd. NRT failed previously. MAT use previously. Confirmed ongoing use as 0.5ppd. Has NRT patch only, and we will monitor step-2 to 3 taper, which is his desire. Stated intent to use PRN supports as well. He continues to contemplate the right time to pursue this plan; sad to say, I'm still the same.. I do give it thought, but something happens to side track me . Alcohol- denied Illicit- denied PSYCHIATRIC MEDICATION HISTORY: According to CPRS and Spayee remote data of [facility] outpatient Rx, the [...] TWICE A DAY ACTIVE DIRECTED BY THE [facility] ([phone] EXT. [id number]) 4) ASPIRIN 81MG EC TAB TAKE ONE [...] TAB/CAP MOUTH EVERY DAY ACTIVE LABS: ANION GAP:11 (06/02/24 11:43) PLASMA BUN: 4.3 (06/02/24 11:43) PLASMA CA: 8.8 (06/02/24 11:43) PLASMA CL: 108 (06/02/24 11:43) PLASMA CO2: 24 (06/02/24 11:43) PLASMA CREA: 0.8 (06/02/24 11:43) PLASMA EGFR: 91 (06/02/24 11:43) PLASMA GLUCOSE: 87 (06/02/24 11:43) PLASMA K: 2.9 (06/02/24 11:43) PLASMA NA: 140 (06/02/24 11:43) PLASMA ALBUMIN: 3.9 (06/02/24 11:43) PLASMA ALKPHOS: 85 (06/02/24 11:43) PLASMA ALT/SGPT: 10 (06/02/24 11:43) PLASMA AST/SGOT: 18 (06/02/24 11:43) PLASMA BILI T: 0.4 (06/02/24 11:43) PLASMA T PROTEIN:7.0 (06/02/24 11:43) PLASMA TSH: 1.388 (06/02/24 11:43) PLASMA VITALS: T: 97.8 F [36.6 C] (06/21/2024 10:34) P: 58 (06/21/2024 10:34) R: 16 (06/21/2024 10:34) BP: 126/69 (06/21/2024 10:34) W: 156 lb [70.76 kg] (06/21/2024 10:34) BMI: 24.5 Mental Status Exam: Saul: 79yom who appears stated age, dressed in casual [...] friends Connectedness to community, school, family, friends [employer] skills (such as problem-solving, conflict resolution, anger management, impulse control, etc.) Access to appropriate medical and mental health care Violence assessment completed: yes Prior history of violence: denied The risk of violence towards others is considered: low Energy made no comments during our conversation that were concerning and/or would suggest that the is at elevated imminent risk of harm to self or others ASSESSMENT: Energy with PTSD, h/o MDD, and tobacco use DO. Energy cited baseline predominant complaint of sleep dysregulation. 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 /nayan/ SAPNA MEREDITH CLINICAL TERRITORY SALES MANAGER Signed: 07/27/2024 14:55 07/27/2024 ADDENDUM STATUS: COMPLETED Energy requesting renewal on the below order. PACT provider alerted. --> ISOSORBIDE MONONITRATE 120MG SA TAB Issu:06-14-23 Qty: 180 for 90 days Sig: TAKE ONE Refills: 0 Last:03-21-24 TABLET BY MOUTH TWICE A DAY Expr:06-14-24 /nayan/ SAPNA MEREDITH CLINICAL TERRITORY SALES MANAGER Signed: 07/27/2024 14:56 Receipt Acknowledged By: * AWAITING SIGNATURE * LAURA GRIFFIN ROBERT J SANDUSKY [facility]
--- OUTSIDE RECORDS SUMMARY | 2024-09-20 07:00 | XMS_ITS | Encounter Summary ---
Author Name [facility] ([place]) Organization [facility] Address [address] [place] [address] Care Team Providers Care [employer] Name Role Phone LAURA GRIFFIN Primary Care [...] N PLAN N Oct 16, 2012 MEDIGAP [id number] [phone] Fabian MCPHERSON PATIENT AARP MED SUPP [facility] Feb 15, 2022 PLANN [id number] Fabian MCPHERSON PATIENT AARP MED SUPP MEDIGAP PLAN N PLAN N Oct 16, 2012 PLAN N [id number] Fabian MCPHERSON PATIENT MEDICARE (WNR) MEDICARE (M) PART A May 16, 2005 PART A [id number] Fabian MCPHERSONS PATIENT MEDICARE (WNR) MEDICARE (M) PART B May 16, 2005 PART B [id number] Fabian MCPHERSONS PATIENT MEDICARE (WNR) MEDICARE (M) PART A May 16, 2005 PART A [id number] [place] PATIENT MEDICARE (WNR) MEDICARE (M) PART B May 16, 2005 PART B [id number] Fabian MCPHERSON PATIENT MEDICARE (WNR) MEDICARE (M) PART A May 16, 2005 PART A [id number] [phone] Fabian MCPHERSON PATIENT MEDICARE (WNR) MEDICARE (M) PART B May 16, 2005 PART B [id number] [phone] Fabian MCPHERSON PATIENT MEDICARE PART D (WNR) PRESCRIPT ION PART D Feb 15, 2010 PART D [id number] [phone] Fabian MCPHERSON PATIENT Selected Encounter This section includes the information on record at [place] for the Encounter. Date/Time Encounter Type Encounter Description Reason Provider Source Sep 20, 2024 11:00 AM MTMS BY EREN BERG [facility] - IND ICD-10-CM F43.10 Post-traumatic stress disorder, unspecified REGAN MEREDITH Encounter Template Text not used by [place] Assessments - Encounter Diagnoses This section includes the primary and secondary diagnoses documented for the Encounter. Date/Time Primary/Secondary Diagnosis Diagnosis Name Provider Source Sep 20, 2024 05:10 PM PRIMARY Post-traumatic stress disorder, unspecified REGAN MEREDITH CBBRIAN Sep 20, 2024 05:10 PM SECONDARY Depression, unspecified REGAN MEREDITH BRIAN Plan of Treatment: Future Appointments (+ 6 months) and Future Tests (+/- 45 days) The Plan of Treatment section includes future care activities for the patient from all [place] treatmentfacilities. This section includes future appointments and future orders which are active, pending or scheduled. Future Appointments This section includes appointments that were scheduled to occur 6 months from the date of the Encounter, up to a maximum of 20 appointments. The data comes from all [place] treatment facilities. Appointment Date/Time Appointment Type Appointme nt Facility Name Oct 12, 2024 10:30 AM AMBULATORY - MEDICINE JAKE BELTRAN [facility] Oct 19, 2024 03:00 PM AMBULATORY - SURGERY CARMEN AMARO [facility] Nov 15, 2024 11:00 AM AMBULATORY - PSYCHIATRY ELENA WALDEN [facility] Nov 29, 2024 11:00 AM AMBULATORY - NONE JADIEL Peres [facility] Dec 20, 2024 10:30 AM AMBULATORY - NONE [facility] Dec 27, 2024 10:30 AM AMBULATORY - NONE JADIEL Peres [facility] Social History: Smoking Status (Most current) and Tobacco Use (All prior to encounter date) This section includes the most current, and the historical, smoking and tobacco- related health factors from the [place] facility where the Encounter took place. Current Smoking Status This section includes the most current smoking, or tobacco-related health factor, from the [place] facility where the Encounter took place. Date/Time Current Smoking Status Comment Facil ity Jun 02, 2024 11:00 AM VA-TOBACCO USE EVERY DAY CIGARET VALENTIN [facility] Tobacco Use History This section includes a history of the smoking, or tobacco-related health factors, that were collected on or before the date of the Encounter. The data comes from the [place] facility where the Encounter took place. Date/Time [...] Jun 14, 2023 11:00 AM VA-TOBACCO USE SKEIN DRIER NO [facility] Jun 14, 2023 11:00 [...] May 01, 2022 11:00 AM VA-TOBACCO USE SKEIN DRIER NO [facility] May 01, 2022 11:00 [...] May 09, 2021 02:30 PM VA-TOBACCO USE SKEIN DRIER YES [facility] May 09, 2021 02:30 PM VA-TOBACCO USE MED NO [facility] May 09, 2021 02:30 PM VA-TOBACCO USER EVERY DAY [facility] Apr 02, 2020 09:00 AM VA-TOBACCO DOESNT USE WI 30 MIN WAKEUP [facility] Apr 02, 2020 09:00 AM VA-TOBACCO USE 30 YEARS OR MORE [facility] Apr 02, 2020 09:00 AM VA-TOBACCO USE ADVICE [facility] Apr 02, 2020 09:00 AM VA-TOBACCO USE SKEIN DRIER NO [facility] Apr 02, 2020 09:00 [...] Sep 14, 2018 10:16 AM VA-TOBACCO USE SKEIN DRIER NO [facility] Sep 14, 2018 10:16 [...] Sep 10, 2017 03:41 PM VA-TOBACCO USE SKEIN DRIER YES [facility] Sep 10, 2017 03:41 PM VA-TOBACCO USE MED NOTIFY PROVID ER [facility] Sep 10, 2017 03:41 PM VA-TOBACCO USER EVERY DAY [facility] Sep 06, 2017 09:21 AM CURRENT TOBACCO USER [facility] Sep 06, 2017 09:21 AM SMOKING CESSATION NO [facility] Sep 06, 2017 09:21 AM TOBACCO OFFERRED P T MEDS (PROVIDER) [facility] Sep 06, 2017 09:21 AM TOBACCO OFFERRED S TOP SMOKING CLINIC [facility] Aug 12, 2016 10:34 AM CURRENT TOBACCO USER [facility] Jul 23, 2015 08:53 AM CURRENT TOBACCO USER [facility] Mar 27, 2014 01:28 PM CURRENT TOBACCO USER [facility] May 05, 2012 09:42 AM CURRENT TOBACCO USER [facility] Apr 23, 2011 11:03 AM CURRENT TOBACCO USER [facility] Apr 23, 2011 11:03 AM SMOKING MEDICATION INTERES T Annie Cantrell [facility] Mar 31, 2010 09:16 AM CURRENT TOBACCO USER [facility] Mar 31, 2010 09:16 AM SMOKING MEDICATION INTERES T Dr Óscar MEDINA [facility] Jun 10, 2009 02:07 PM CURRENT TOBACCO USER [facility] Jun 10, 2009 02:07 PM SMOKING MEDICATION INTERES T Dr. Prince MEDINA [facility] Aug 07, 2008 09:36 AM CURRENT TOBACCO USER [facility] May 18, 2008 02:38 PM CURRENT TOBACCO USER [facility] May 18, 2008 02:38 PM TOBACCO OFFERRED P T MEDS (PROVIDER) [facility] May 18, 2008 02:38 PM TOBACCO OFFERRED S TOP SMOKING CLINIC [facility] Advance Directives: All historical and current Section Date Range: From patient's date of to the date document was created. This section includes ALL of a patient's completed or amended VA Advance and Rescinded Directives. The entries below indicate that a directive exists for the patient, but an actual copy is not included with this document. The data comes from all [place] facilities. Date Advance Directives Provider Source May 03, 2019 ADVANCE DIRECTIVE DISCUSSION DEN DE LUNA [facility] Dec 28, 2012 ADVANCE DIRECTIVE CRISTI RAE [facility] Dec 28, 2012 ADVANCE DIRECTIVE DISCUSSION VIDAL RAE [facility] Dec 28, 2012 RESCINDED ADVANCE DIRECTIVE DONALD RAE [facility] June 18, 2009 ADVANCE DIRECTIVE DISCUSSION FERNY PASTRANAUSKY [facility] Encounter Notes: All associated encounter notes This section contains the clinical notes associated to the Encounter. Date/Time Encounter Note(s) Provider Source Sep 20, 2024 10:36 AM PSYCHIATRY NOTE: LOCAL TITLE: [facility] PSYCHIATRY NOTE (T) STANDARD TITLE: PSYCHIATRY NOTE DATE OF NOTE: SEP 20, 2024@10:36 ENTRY DATE: SEP 20, 2024@10:36:25 AUTHOR: SAPNA MEREDITH COSIGNER: URGENCY: STATUS: COMPLETED PSYCHIATRIC EVALUATION NOTE Time in: 1103 Time out: 1130 Time spent: 27 min TS is a 79yom w/ a MH h/o PTSD and MDD, tobacco use DO. Chart and available information reviewed. CC: I think I'm fine HPI: Vlad was last spoken with on 07/26/24 and reported good medication adherence, tolerability, and overall stability. He jokingly described his mood as mean, rotten, terrible, and nasty, but confirmed everything is going well. He was watching his daughter's dog while she was in [place] and recently returned from a trip to [place]. He reported good sleep overall, though occasionally experiences issues with falling asleep or waking up in the middle of the night without a clear cause. He denied anxiety, depression, napping often, impairment, or neurovegetative symptoms due to these intermittent sleep issues. His mood remained positive. We resolved to continue monitoring without changes. Hayti seen for F appt as planned. Reported medication adherence, without concerns for tolerability or benefit perceptions ongoing. I'm okay, summer is going okay.. although I was in the hospital again for CHF, in [place] . Discussed a recurrence of prior circumstances, stating awakening at 0300 with shortness of breath and no forewarning of this. Engaged paramedics and was treated, citing good medication supply and having since corresponded with [facility]. He continues to want to remain local in his residence and daughter remains vested in his health and wellbeing, encouraging thoughts on moving closer to her. Continues to dog sit for daughter often, with he and Louey getting along well. He is heading back to [place] soon for more dog sitting. Far as I'm concerned, I'm great.. really don't have any problems or anything . Denied depression or associated concerns. Denied negative thought content. Continues to use TCA in addition to mirtazapine for sleep support. For the most part this is helpful for sleep; once every 2-3 weeks he is having a bad night of sleep for no apparent cause. Discussed encouragement to assess need through omission, and he stated intent to do so for TCA, to reevaluate ongoing need. Encouraged outreach with questions or concerns. Denied SI/HI. SUBSTANCE USE HX: Nicotine- baseline [...] give it thought, but something happens to sidetrack me . Alcohol- denied Illicit- denied PSYCHIATRIC MEDICATION HISTORY: According to CPRS and [place] remote data of [place] outpatient Rx, the pt has a h/o [...] Reaction 05/18/2008 14:35 VICRYL SUTURES UNKNOWN Active Clinic Medications Status 1) SULFUR HEXAFLUORIDE INJ,SUSP INJECT 2ML IV PUSH ONE ACTIVE TIME NEEDED Instructions too long. See order details for full text. Active Outpatient Medications Status 1) AMITRIPTYLINE HCL 25MG TAB TAKE ONE TO TWO TABLET(S) ACTIVE BY MOUTH AT BEDTIME NEEDED FOR SLEEP 2) APIXABAN 5MG TAB TAKE ONE TABLET BY MOUTH TWICE A DAY ACTIVE DIRECTED BY [facility] ([phone] EXT. [id number]) 3) ASPIRIN 81MG EC TAB TAKE ONE TABLET BY MOUTH EVERY ACTIVE DAY (WITH FOOD) 4) EMPAGLIFLOZIN 25MG TAB TAKE ONE TABLET BY MOUTH EVERY ACTIVE (S) MORNING FOR HEART FAILURE 5) FUROSEMIDE 40MG TAB TAKE ONE TABLET BY MOUTH EVERY ACTIVE DAY FOR EDEMA 6) ISOSORBIDE MONONITRATE 120MG SA TAB TAKE ONE TABLET ACTIVE (S) BY MOUTH TWICE A DAY 7) LISINOPRIL 5MG TAB TAKE ONE TABLET BY MOUTH EVERY DAY ACTIVE 8) METFORMIN HCL 500MG TAB TAKE ONE TABLET BY MOUTH ACTIVE (S) EVERY DAY FOR TYPE 2 DIABETES MELLITUS (WITH FOOD; AVOID ALCOHOL) 9) METOPROLOL TARTRATE 25MG TAB TAKE ONE TABLET BY MOUTH ACTIVE TWICE A DAY 10) MIRTAZAPINE 15MG TAB TAKE ONE TABLET BY MOUTH AT ACTIVE (S) BEDTIME 11) NICOTINE 14MG/24HR PATCH APPLY 1 PATCH (14MG/24HR) TO ACTIVE CLEAN DRY SKIN EVERY DAY FOR SMOKING CESSATION : APPLY EVERY MORNING, REMOVE AT BEDTIME 12) PANTOPRAZOLE NA 20MG EC TAB TAKE ONE TABLET BY MOUTH ACTIVE EVERY MORNING, ON AN EMPTY STOMACH 13) ROSUVASTATIN CA 40MG TAB TAKE ONE TABLET BY MOUTH ACTIVE EVERY DAY FOR CHOLESTEROL 14) SERTRALINE HCL 50MG TAB TAKE ONE TABLET BY MOUTH ACTIVE (S) DAILY FOR MAJOR DEPRESSIVE DISORDER 15) SPIRONOLACTONE 25MG TAB TAKE ONE TABLET BY MOUTH ACTIVE (S) EVERY DAY FOR HEART FAILURE 16) TAMSULOSIN HCL 0.4MG CAP TAKE ONE CAPSULE BY MOUTH AT ACTIVE BEDTIME Active Non-VA Medications Status 1) Non-VA DIPHENHYDRAMINE [...] Speech: regular volume, rate and tone Mood: good Affect: appropriate Behavior: cooperative Thought Process: coherent, [...] friends Connectedness to community, school, family, friends [place] skills (such as problem-solving, conflict resolution, anger management, impulse control, etc.) Access to appropriate medical and mental health care Violence assessment completed: yes Prior history of violence: denied The risk of violence towards others is considered: low Hayti made no comments during our conversation that were concerning and/or would suggest that the is at elevated imminent risk of harm to self or others ASSESSMENT: Hayti with PTSD, h/o MDD, and tobacco use [...] to optimize both medication and counseling therapies, 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 [place] prescription medications: Patient verifies that they are [...] list of medications. /nayan/ SAPNA MEREDITH CLINICAL EVENT PLANNER Signed: 09/20/2024 17:10 SAPNA MEREDITH [facility]
--- OUTSIDE RECORDS SUMMARY | 2024-09-22 06:09 | XMS_ITS | Encounter Summary ---
Author Name Department of [facility] ([place] Organization [facility] Address [address] [place] [address] Care Team Providers Care Home Teaching Grades 9 Thru 12 Teacher Name Role Phone LAURA GRIFFIN Primary Care [...] N PLAN N Oct 16, 2012 MEDIGAP [id number] [phone] Fabian MCPHERSON PATIENT AARP MED SUPP MEDICARE [facility]PPLEMEN [facility] PLANN Feb 15, 2022 PLANN [id number] Fabian MCPHERSON PATIENT AARP MED SUPP MEDIGAP PLAN N PLAN N Oct 16, 2012 PLAN N [id number] [phone] Fabian MCPHERSON PATIENT MEDICARE (WNR) MEDICARE (M) PART A May 16, 2005 PART A [id number] Fabian MCPHERSONS PATIENT MEDICARE (WNR) MEDICARE (M) PART B May 16, 2005 PART B [id number] Fabian MCPHERSONS PATIENT MEDICARE (WNR) MEDICARE (M) PART A May 16, 2005 PART A [id number] [phone] [place] PATIENT MEDICARE (WNR) MEDICARE (M) PART B May 16, 2005 PART B [id number] [phone] Fabian MCPHERSON PATIENT MEDICARE (WNR) MEDICARE (M) PART A May 16, 2005 PART A [id number] [phone] Fabian MCPHERSON PATIENT MEDICARE (WNR) MEDICARE (M) PART B May 16, 2005 PART B [id number] Fabian MCPHERSON PATIENT MEDICARE PART D (WNR) PRESCRIPT ION PART D Feb 15, 2010 PART D [id number] Fabian MCPHERSON PATIENT Selected Encounter This section includes the information on record at [place] for the Encounter. Date/Time Encounter Type Encounter Description Reason Pro vider Source Sep 22, 2024 10:09 AM Outpatient Encounter ADMIN PAT ACTIVTIES (MASNONCT) IHE Encounter Template Text not used by [place] Plan of Treatment: Future Appointments (+ 6 months) and Future Tests (+/- 45 days) The Plan of Treatment section includes future care activities for the patient from all [place] treatmentfacilities. This section includes future appointments and future orders which are active, pending or scheduled. Future Appointments This section includes appointments that were scheduled to occur 6 months from the date of the Encounter, up to a maximum of 20 appointments. The data comes from all [place] treatment facilities. Appointment Date/Time Appointment Type Appointme nt Facility Name Oct 12, 2024 10:30 AM AMBULATORY - MEDICINE CLEChapin BELTRAN [facility] Oct 19, 2024 03:00 PM AMBULATORY - SURGERY CARMEN SONDRA [facility] Nov 15, 2024 11:00 AM AMBULATORY - PSYCHIATRY CL WIN [facility] Nov 29, 2024 11:00 AM AMBULATORY - NONE CLEPAT Peres [facility] Dec 20, 2024 10:30 AM AMBULATORY - NONE CAROL [facility] Dec 27, 2024 10:30 AM AMBULATORY - NONE [place] [facility] Social History: Smoking Status (Most current) and Tobacco Use (All prior to encounter date) This section includes the most current, and the historical, smoking and tobacco- related health factors from the [place] facility where the Encounter took place. Current Smoking Status This section includes the most current smoking, or tobacco-related health factor, from the [place] facility where the Encounter took place. Date/Time Current Smoking Status Comment Facil ity Sep 06, 2017 09:21 AM SMOKING CESSATION NO [facility] Tobacco Use History This section includes a history of the smoking, or tobacco-related health factors, that were collected on or before the date of the Encounter. The data comes from the [place] facility where the Encounter took place. Date/Time Smoking Status/Tobacco Use Comment Diamond parra Jun 12, 2015 01:08 PM TOBACCO CURRENT USER 1/2 pack a day [facility] Apr 24, 2013 09:26 AM CURRENT TOBACCO USER [facility] Advance Directives: All historical and current Section Date Range: From patient's date of to the date document was created. This section includes ALL of a patient's completed or amended VA Advance and Rescinded Directives. The entries below indicate that a directive exists for the patient, but an actual copy is not included with this document. The data comes from all [place] facilities. Date Advance Directives Provider Source May 03, 2019 ADVANCE DIRECTIVE DISCUSSION DEN DE LUNA [facility] Dec 28, 2012 ADVANCE DIRECTIVE CRISTI RAE [facility] Dec 28, 2012 ADVANCE DIRECTIVE DISCUSSION VIDAL RAE [facility] Dec 28, 2012 RESCINDED ADVANCE DIRECTIVE DONALD RAE [facility] June 18, 2009 ADVANCE DIRECTIVE DISCUSSION FERNY PASTRANA [facility] Encounter Notes: All associated encounter notes This section contains the clinical notes associated to the Encounter. Date/Time Encounter Note(s) Provider Source Sep 22, 2024 10:09 AM LETTERS: LOCAL TITLE: SCHEDULING CONTACT ATTEMPT LETTER STANDARD TITLE: LETTERS DATE OF NOTE: SEP 22, 2024@10:09 ENTRY DATE: SEP 22, 2024@10:09:16 AUTHOR: VANESSA HANCOCK MA EXP COSIGNER: URGENCY: STATUS: COMPLETED [facility] [address] [place] [address] Sep CAROL MCPHERSON [address] [place] [id number] Dear , [facility] a request to schedule you for a Follow-Up appointment. We attempted to contact you via telephone on Sep and we were unable to reach you. This is our 3rd attempt to reach you. It is important that you contact us by Oct to schedule your appointment. Please call us at [phone] at extension [phone] between the hours of 800 AM to 430 PM EST, Wednesday through Wednesday to schedule your appointment. If you already made an appointment, please disregard this notification. We look forward to your call and thank you for your service. [address] [address] VANESSA HANCOCK [facility]
--- NOTE | 2024-10-05 | CT_ITS ---
[address] [address] Patient Name: CAROL MCPHERSON MRN: [id number] date: 1945 Sex: M Assigned Patient Location: LAB Current Patient Location: LAB Accession/Order Number: [id number] Exam Date: 10/05/2024 12:50 Report Date: 10/05/2024 16:09 At the request of: PJ US MD Procedure: CT angio neck CTA Head and Neck TECHNIQUE: Axial imaging of the head and neck with 2-D and 3-D reconstruction. 100 cc of Omnipaque 350. The CT exam was performed using one or more the following dose reduction techniques: Automated exposure control, adjustment of the MA and/or Kv according to patient size, or use of the iterative reconstruction technique. Stenoses were measured using the NASCET criteria. COMPARISON: Carotid ultrasound 09/12/2024. 79% stenosis left ICA segment. Near 70% stenosis right carotid bulb. HISTORY: Follow-up assessment for bilateral carotid stenosis. The visualized aortic arch and great vessels are unremarkable. Subclavian arteries are patent Extensive calcified plaquing of the carotid bifurcation. Stenosis approaching 70%. Mild calcified plaquing of the right carotid bifurcation. Stenosis less than 50%. Extensive atherosclerosis of the common carotid arteries greater on the right. No vertebral dissection, occlusion or abrupt cut off identified. The carotid siphons and vertebral basilar systems are patent. Mild calcified plaquing of carotid bifurcations. No intracranial aneurysm, dissection, abrupt cut off or critical stenosis identified.. . Moderate degeneration CT/CT angio neck IMPRESSION: Stenosis of the proximal segment of the left internal carotid artery up to 70% secondary to extensive calcified plaquing. Stenosis of the proximal portion of the right internal carotid artery less than 50%. Patent vertebral arteries. Impression dictated by: Nadeem Templeton M.D. 10/05/2024 4:09 PM [facility] Electron[facility] authenticated by: [id number] Y Date: 10/05/2024 16:09
--- OUTSIDE RECORDS SUMMARY | 2024-10-05 07:12 | XMS_ITS | Continuity of Care Document ---
Author Name [facility] Organization [facility] Care Team Providers Care Junior Marketing Associate Name Role Phone [facility] Unavailable Unavailable Problems Combined list of problems from Department of Defense and Veterans Affairs facilities. It does not include entries that were removed or entered in error. Problem Status Onset Date Problem Type Date of Resolution Comments Source Paroxysmal atrial fibrillation (SNOMED CT 556881797) Active 07/17/19 11 Condition Sep 23, 2010 Entered By: ANNIE DELGADO Comment: Occurred with AMI July 2010. [place] rhythm [place] f/u [facility] Abnormal findings on diagnostic imaging of lung Active Condition Aug 01, 2020 Entered By: ALEKSEY SALDAÑA CIA Comment: CT 04/2020.Repeat in 07/2020-->find ings stable. 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) Active Condition [facility] Chronic diastolic heart failure Active Condition [facility] Chronic insomnia Active Condition [facility] Coronary atherosclerosis (SNOMED CT 291660234) Active Condition Sep 23, 2010 Entered By: ANNIE DELGADO Comment: CABG x 3 vessels 1999Au2010 Entered By: ANNIE DELGADO Comment: stent to left main 2003 (Cyp[facility])Sep 23, 2010 Entered By: ANNIE DELGADO Comment: stent to posterior descending L in 2010 (Prom[facility] FORREST) [facility] Depression Active Condition [facility] Depressive disorder Active Condition [facility] Diabetes mellitus Active Condition [facility] Diabetic neuropathy Active Condition [facility] Difficulty cutting own toenails Active Condition [facility] Generalized Anxiety Disorder * (ICD-9-CM 300.02) Active Condition [facility] Hyperlipidemia (SNOMED CT 62421778) Active Condition [facility] Hypokalemia Active Condition [facility] Chcf (current) use of Anticoagulants (ICD-9-CM V58.61) Active Condition [facility] Noncompliance with Treatment (SNOMED CT 4563218) Active Condition [facility] Obstructive sleep apnea of adult Active Condition [facility] Posttraumatic stress disorder (SNOMED CT 20021153) Active Condition [facility] Pulmonary asbestosis Active Condition [facility] Sensorineural Hearing Loss, Bilateral (ICD-9-CM 389.18) Active Condition [facility] Thoracic aorta abnormality Active Condition May 01, 2020 Entered By: ALEKSEY SALDAÑA CIA Comment: 04/2020 Ectasia of ascending thoracic aorta. Size = 3.9 cm. [facility] Tobacco use (SNOMED CT 908037508) Active Condition [facility] Transient Ischemic Attack Active Condition [facility] Vitamin D Deficiency (SCT 6874521) Active Condition [facility] Callus Inactive Condition 05/01/2020 [facility] Encounter for Therapeutic Drug Monitoring (ICD-9-CM V58.83) Inactive Condition 05/01/2020 [facility] Onychomycosis of toenails Inactive Condition 05/01/2020 [facility] Osteoarthritis Inactive Condition 05/01/2020 [facility] Diagnosis: ICD-10-CM F43.10 Post-traumatic stress disorder, unspecified Active Diagnosis [facility] Diagnosis: ICD-10-CM E11.42 Type 2 diabetes mellitus with diabetic polyneuropathy Active Diagnosis [facility] Diagnosis: ICD-10-CM I50.32 Chronic diastolic (congestive) heart failure Active Diagnosis [facility] Diagnosis: ICD-10-CM R42 Dizziness and giddiness Active Diagnosis [facility] Diagnosis: ICD-10-CM Z51.81 Encounter for therapeutic drug level monitoring Active Diagnosis [facility] Diagnosis: ICD-10-CM L60.9 Nail disorder, unspecified Active Diagnosis [facility] Diagnosis: ICD-10-CM F17.210 Nicotine dependence, cigarettes, uncomplicated Active Diagnosis [facility] Diagnosis: ICD-10-CM E11.9 Type 2 diabetes mellitus without complications Active Diagnosis [facility] Diagnosis: ICD-10-CM N40.1 Benign prostatic hyperplasia with lower urinary tract symp Active Diagnosis [facility] Diagnosis: ICD-10-CM F32.A Depression, unspecified Active Diagnosis [facility] Diagnosis: ICD-10-CM Z12.83 Encounter for screening for malignant neoplasm of skin Active Diagnosis [facility] Diagnosis: ICD-10-CM Z23 Encounter for immunization Active Diagnosis [facility] Diagnosis: ICD-10-CM E11.40 Type 2 diabetes mellitus with diabetic neuropathy, unsp Active Diagnosis [facility] Diagnosis: ICD-10-CM H61.22 Impacted cerumen, left ear Active Diagnosis [facility] Diagnosis: ICD-10-CM L57.0 Actinic keratosis Active Diagnosis [facility] Medications Combined list of outpatient medications from Department of Defense and Veterans Affairs facilities.Medications provided include 1) outpatient medications from the last 15 months, and 2) patient-reported medications. Medication Details Route Status Patient Instructions Prescription Expires Prescription Number Last Dispense Date Ordering Provider Order Date Order Qty Source AMITRIPTYLI NE HCL 25MG TAB TAKE ONE TO TWO TABLET(S ) BY MOUTH AT BEDTIME NEEDED FOR SLEEP ORAL ACTIVE 06/03/2025 [id number] 5 SAPNA MEREDITH 2024 60 [facility] AMITRIPTYLI NE HCL 25MG TAB TAKE ONE TO TWO TABLET(S ) BY MOUTH AT BEDTIME NEEDED FOR SLEEP ORAL DISCONT INUED 05/11/2024 [id number] 5 SAPNA MEREDITH 2023 60 [facility] AMLODIPINE BESYLATE 5MG TAB TAKE ONE TABLET BY MOUTH EVERY DAY ORAL DISCONT INUED BY PROVIDE R 12/14/2024 [id number] 5 ASH GRIFFIN ELENA A 2024 90 [facility] AMLODIPINE BESYLATE 5MG TAB TAKE ONE TABLET BY MOUTH EVERY DAY ORAL DISCONT INUED 06/14/2024 [id number] 4 ASH GRIFFIN ELENA A 2023 90 [facility] APIXABAN 5MG TAB TAKE ONE TABLET BY MOUTH TWICE A DAY DIRECTED BY [facility] [place] [facility] EXT. [phone]) ORAL ACTIVE 04/06/2025 [id number] 5 Ja GARCIA 2024 180 [facility] APIXABAN 5MG TAB TAKE ONE TABLET BY MOUTH TWICE A DAY DIRECTED BY THE [facility] ([phone] EXT. [phone]) ORAL DISCONT INUED 06/09/2024 [id number] 5 LAVERNE GREER DEBBIE A 2023 180 [facility] ASPIRIN 81MG TAB,EC TAKE ONE TABLET BY MOUTH EVERY DAY (WITH FOOD) ORAL ACTIVE 12/14/2024 [id number] 5 ELIAS,RE ELENA A 2024 120 [facility] ASPIRIN 81MG TAB,EC TAKE ONE TABLET BY MOUTH EVERY DAY (WITH FOOD) ORAL DISCONT INUED 06/14/2024 [id number] 4 ELIAS,RE ELENA A 2023 120 [facility] CARBAMIDE PEROXIDE 6.5%/GLYCER IN SOLN,OTIC INSTILL 5 DROPS IN AFFECTED EAR(S) TWICE A DAY FOR 4 DAYS FOR EAR WAX BLOCKAGE FOR UP TO 4 DAYS; PYX[facility] RX AURICU LAR (OTIC) 07/21/2024 [id number] 5 ELIAS,RE ELENA A 2024 15 [facility] DIPHENHYDRA MINE HCL 50MG CAP TAKE 1 CAPSULE BY MOUTH AT BEDTIME ORAL ACTIVE JAIRON DELGADO 2010 [facility] EMPAGLIFLOZ IN 25MG TAB TAKE ONE TABLET BY MOUTH EVERY MORNING FOR HEART FAILURE ORAL SUSPEND ED 06/22/2025 [id number] 5 ELIAS,RE ELENA A 2024 90 [facility] EMPAGLIFLOZ IN 25MG TAB TAKE ONE TABLET BY MOUTH EVERY MORNING FOR HEART FAILURE ORAL DISCONT INUED 03/24/2025 [id number] ELIAS,RE ELENA A 2024 90 [facility] FOLIC ACID 1MG TAB TAKE ONE TABLET BY MOUTH EVERY DAY ORAL ACTIVE RICH PAREDES 2010 [facility] FUROSEMIDE 40MG TAB TAKE ONE TABLET BY MOUTH EVERY DAY FOR EDEMA ORAL ACTIVE 09/15/2025 [id number] 5 ELIAS,RE ELENA A 2024 90 [facility] ISOSORBIDE MONONITRATE 120MG TAB,SA TAKE ONE TABLET BY MOUTH TWICE A DAY ORAL SUSPEND ED 07/28/2025 [id number] 5 ELIAS,RE ELENA A 2024 180 [facility] ISOSORBIDE MONONITRATE 120MG TAB,SA TAKE ONE TABLET BY MOUTH TWICE A DAY ORAL DISCONT INUED 06/14/2024 [id number] 5 ELIAS,RE ELENA A 2023 180 [facility] LISINOPRIL 5MG TAB TAKE ONE TABLET BY MOUTH EVERY DAY ORAL ACTIVE 12/14/2024 [id number] 5 ELIAS,RE ELENA A 2024 90 [facility] LISINOPRIL 5MG TAB TAKE ONE TABLET BY MOUTH EVERY DAY ORAL DISCONT INUED 06/14/2024 [id number] 4 ELIAS,RE ELENA A 2023 90 [facility] MELATONIN CAP/TAB TAKE ONE CAP/TAB BY MOUTH AT BEDTIME ORAL ACTIVE JAIRON DELGADO 2010 [facility] METFORMIN HCL 500MG TAB TAKE ONE TABLET BY MOUTH EVERY DAY FOR TYPE 2 DIABETES MELLITUS (WITH FOOD; AVOID ALCOHOL) ORAL SUSPEND ED 06/22/2025 [id number] 5 ELIAS,RE ELENA A 2024 90 [facility] METFORMIN HCL 500MG TAB TAKE ONE TABLET BY MOUTH EVERY DAY FOR TYPE 2 DIABETES MELLITUS (WITH FOOD; AVOID ALCOHOL) ORAL DISCONT INUED 12/14/2024 [id number] 5 ELIAS,RE ELENA A 2023 90 [facility] METFORMIN HCL 500MG TAB TAKE ONE TABLET BY MOUTH EVERY DAY FOR TYPE 2 DIABETES MELLITUS (AVOID ALCOHOL) ORAL DISCONT INUED 07/30/2024 [id number] ELIAS,RE ELENA A 2023 90 [facility] METOPROLOL TARTRATE 25MG TAB TAKE ONE TABLET BY MOUTH TWICE A DAY ORAL ACTIVE 12/14/2024 [id number] 5 ELIAS,RE ELENA A 2024 180 [facility] METOPROLOL TARTRATE 25MG TAB TAKE ONE TABLET BY MOUTH TWICE A DAY ORAL DISCONT INUED 06/14/2024 [id number] 4 ELIAS,RE ELENA A 2023 180 [facility] MIRTAZAPINE 15MG TAB TAKE ONE TABLET BY MOUTH AT BEDTIME ORAL SUSPEND ED 07/27/2025 [id number] 5 SAPNA MEREDITH 2024 90 [facility] MIRTAZAPINE 15MG TAB TAKE ONE TABLET BY MOUTH AT BEDTIME ORAL DISCONT INUED 07/06/2024 [id number] 5 SAPNA MEREDITH 2023 90 [facility] MULTIVITAMI NS CAP/TAB TAKE 1 TAB/CAP BY MOUTH EVERY DAY ORAL ACTIVE JAIRON DELGADO 2008 [facility] NICOTINE 14MG/24HRS PATCH APPLY 1 PATCH (14MG/24 HR) TO CLEAN DRY SKIN EVERY DAY FOR SMOKING CESSATIO N : APPLY EVERY MORNING, REMOVE AT BEDTIME TRANSD ERMAL ACTIVE 03/23/2025 [id number] SAPNA MEREDITH 2024 28 [facility] NICOTINE 7MG/24HRS PATCH APPLY 1 PATCH (7MG/24H R) TO CLEAN DRY SKIN EVERY DAY FOR SMOKING CESSATIO N : APPLY EVERY MORNING, REMOVE AT BEDTIME TRANSD ERMAL 04/21/2024 [id number] SAPNA MEREDITH 2024 28 [facility] NITROGLYCER IN 0.4MG TAB,SUBLING UAL DISSOLVE ONE TABLET UNDER THE TONGUE NEEDED FOR ACUTE ATTACK OF ANGINA FOR CHEST PAIN; IF CHEST PAIN IS NOT IMPROVED 5 MINUTES AFTER TAKING 1 TABLET, CALL 911 DISPE NSE IN ORIGINAL CONTAINE R SUBLIN GUAL 08/20/2024 [id number] 4 ELIAS,RE ELENA A 2023 100 [facility] PANTOPRAZOL E NA 20MG TAB,EC TAKE ONE TABLET BY MOUTH EVERY MORNING, ON AN EMPTY STOMACH ORAL ACTIVE 02/02/2025 [id number] 5 ELIAS,ASH ELENA A 2023 90 [facility] PANTOPRAZOL E NA 20MG TAB,EC TAKE ONE TABLET BY MOUTH EVERY MORNING, ON AN EMPTY STOMACH ORAL DISCONT INUED 02/04/2024 [id number] 4 ELIAS,RE ELENA A 2022 90 [facility] RANOLAZINE 500MG TAB,SA TAKE ONE TABLET BY MOUTH EVERY 12 HOURS FOR RAPID VENTRICU LAR HEARTBEA T ORAL DISCONT INUED 07/17/2024 [id number] 5 ELIAS,RE ELENA A 2024 180 [facility] RANOLAZINE 500MG TAB,SA TAKE ONE TABLET BY MOUTH EVERY 12 HOURS FOR RAPID VENTRICU LAR HEARTBEA T ORAL DISCONT INUED 05/02/2024 [id number] 4 ELIAS,RE ELENA A 2023 180 [facility] RANOLAZINE 500MG TAB,SA TAKE ONE TABLET BY MOUTH EVERY 12 HOURS FOR RAPID VENTRICU LAR HEARTBEA T ORAL DISCONT INUED 11/18/2023 [id number] 4 ELIAS,RE ELENA A 2023 180 [facility] RANOLAZINE 500MG TAB,SA TAKE ONE TABLET BY MOUTH EVERY 12 HOURS FOR RAPID VENTRICU LAR HEARTBEA T ORAL DISCONT INUED 10/28/2023 [id number] ELIAS,RE ELENA A 2023 180 [facility] RANOLAZINE 500MG TAB,SA TAKE ONE TABLET BY MOUTH EVERY 12 HOURS FOR RAPID VENTRICU LAR HEARTBEA T ORAL 09/19/2024 [id number] 5 ELIAS,RE ELENA A 2024 180 [facility] ROSUVASTATI N CA 40MG TAB TAKE ONE TABLET BY MOUTH EVERY DAY FOR CHOLESTE ROL ORAL ACTIVE 12/14/2024 [id number] 5 ELIAS,RE ELENA A 2024 90 [facility] ROSUVASTATI N CA 40MG TAB TAKE ONE TABLET BY MOUTH EVERY DAY FOR CHOLESTE ROL ORAL DISCONT INUED 06/14/2024 [id number] 4 ELIAS,RE ELENA A 2023 90 [facility] SERTRALINE HCL 50MG TAB TAKE ONE TABLET BY MOUTH DAILY FOR MAJOR DEPRESSI VE DISORDER ORAL SUSPEND ED 06/03/2025 [id number] 5 SAPNA MEREDITH 2024 90 [facility] SERTRALINE HCL 50MG TAB TAKE ONE TABLET BY MOUTH DAILY FOR MAJOR DEPRESSI VE DISORDER ORAL DISCONT INUED 08/18/2024 [id number] SAPNA MEREDITH 2023 90 [facility] SERTRALINE HCL 50MG TAB TAKE ONE TABLET BY MOUTH DAILY FOR MAJOR DEPRESSI VE DISORDER ORAL DISCONT INUED (EDIT) 07/06/2024 [id number] SAPNA MEREDITH 2023 30 [facility] SPIRONOLACT ONE 25MG TAB TAKE ONE TABLET BY MOUTH EVERY DAY FOR HEART FAILURE ORAL SUSPEND ED 06/22/2025 [id number] 5 ASH GRIFFIN ELENA A 2024 90 [facility] SPIRONOLACT ONE 25MG TAB TAKE ONE TABLET BY MOUTH EVERY DAY FOR HEART FAILURE ORAL DISCONT INUED 03/24/2025 [id number] ELIASRE ELENA A 2024 90 [facility] TAMSULOSIN HCL 0.4MG CAP TAKE ONE CAPSULE BY MOUTH AT BEDTIME ORAL ACTIVE 06/22/2025 [id number] 5 ELIASRE ELENA A 2024 90 [facility] TAMSULOSIN HCL 0.4MG CAP TAKE ONE CAPSULE BY MOUTH AT BEDTIME ORAL DISCONT INUED 12/14/2024 [id number] ELIASRE ELENA A 2023 90 [facility] TAMSULOSIN HCL 0.4MG CAP TAKE ONE CAPSULE BY MOUTH AT BEDTIME ORAL DISCONT INUED 06/14/2024 [id number] 4 ELIASRE ELENA A 2023 90 [facility] Allergies, Adverse Reactions, Alerts Combined list of allergies from Department of Defense and Veterans Affairs facilities. It does not include entries that were removed or entered in error. Substance Category Reaction Severity Reaction type Status Date Reported Comments Source CHELLE YODER Propensity to adverse reaction (finding) active 9 [facility] Immunizations Combined list of available immunizations from the Department of Defense and Veterans Affairs facilities. Immunization Series Date Given Administered By Site Reaction Lot Number CVX Code Drug Spool Winder Status Comments Source RSV, BIVALENT, PROTEIN SUBUNIT RSVPREF, DILUENT RECONSTITUTED , 0.5 ML, PF 2024 VELVET VALENTINE RIGHT DELTO ID [id number] 305 complet ed [facility] COVID-[facility] ([facility]), MRNA, LNP-S, PF, LES-SUCROSE, 30 MCG/0.3 ML (AGES 12+ YEARS) 2023 VELVET VALENTINE RIGHT DELTO ID [id number] 309 complet ed [facility] [place], [facility] INFLUENZA, HIGH-DOSE, TRIVALENT, PF 2023 ADRIANA DIAZ C LEFT DELTO ID [id number] A 135 complet ed [facility] COVID-19 ([employer]), MRNA, LNP-S, PF, LES-SUCROSE, 30 MCG/0.3 ML (AGES 12+ YEARS) 1 2022 TARIK IVAN RIGHT DELTO ID [id number] 309 complet ed [facility] INFLUENZA, HIGH-DOSE, QUADRIVALENT 2022 VELVET VALENTINE LEFT DELTO ID [id number] A 197 complet ed [facility] AT [facility] Y [facility] TDAP 2022 MINNA KIMBLE RIGHT DELTO ID [id number] 115 complet ed [facility] COVID-19 ([employer]), MRNA, LNP-S, BIVALENT BOOSTER, PF, 30 MCG/0.3 ML DOSE 1 2021 300 complet ed PFR; [id number]; 3 [facility] INFLUENZA VACCINE, QUADRIVALENT, ADJUVANTED 2021 205 complet ed [facility] COVID-19 ([employer]), MRNA, LNP-S, PF, 30 MCG/0.3 ML DOSE, LES-SUCROSE (AGES 12+ YEARS) 4 2021 217 complet ed PFR; [id number]; 2 [facility] ZOSTER RECOMBINANT 2021 187 complet ed [facility] DTP 1 2021 01 complet ed HISTORICA L INFORMATI ON - FROM OTHER REGISTRY, [facility] COVID-19 ([employer]), MRNA, LNP-S, PF, 30 MCG/0.3 ML DOSE 3 2020 208 complet ed PFR; [id number]; 2 [facility] INFLUENZA VACCINE, QUADRIVALENT, ADJUVANTED 2020 205 complet ed [facility] ZOSTER RECOMBINANT 2020 187 complet ed [facility] COVID-19 ([facility]), MRNA, LNP-S, PF, 100 MCG/0.5 ML DOSE 2 2020 207 complet ed [facility] COVID-19 ([facility]), MRNA, LNP-S, PF, 100 MCG/0.5 ML DOSE 1 2020 207 complet ed [facility] INFLUENZA, HIGH-DOSE, QUADRIVALENT 2019 197 complet ed [facility] INFLUENZA, TRIVALENT, ADJUVANTED 2018 168 complet ed [facility] INFLUENZA, TRIVALENT, ADJUVANTED 2017 168 complet ed [facility] INFLUENZA, HIGH DOSE SEASONAL 2016 135 complet ed [facility] PNEUMOCOCCAL POLYSACCHARID E [id number] 2015 33 complet ed [facility] INFLUENZA, HIGH DOSE SEASONAL 2015 135 complet ed [facility] INFLUENZA, SEASONAL, INJECTABLE, PRESERVATIVE FREE 2014 140 complet ed [facility] INFLUENZA, UNSPECIFIED FORMULATION 2014 88 complet ed [facility] PNEUMOCOCCAL CONJUGATE PCV 13 2014 133 complet ed [facility] INFLUENZA, SEASONAL, INTRADERMAL, PRESERVATIVE FREE 1 2014 144 complet ed HISTORICA L INFORMATI ON - FROM OTHER REGISTRY, [facility] INFLUENZA (HISTORICAL) 2013 88 complet ed [facility] INFLUENZA (HISTORICAL) 2012 88 complet ed [facility] INFLUENZA, UNSPECIFIED FORMULATION 2012 88 complet ed [facility] INFLUENZA, UNSPECIFIED FORMULATION 2011 88 complet ed [facility] INFLUENZA (HISTORICAL) 2010 88 complet ed [facility] INFLUENZA (HISTORICAL) 2009 88 complet ed [facility] PNEUMOCOCCAL, UNSPECIFIED FORMULATION 2009 109 complet ed [facility] INFLUENZA, UNSPECIFIED FORMULATION 2009 88 complet ed [facility] NOVEL INFLUENZA-H1N 1-09, ALL FORMULATIONS 2009 128 complet ed [facility] INFLUENZA (HISTORICAL) 2008 88 complet ed [facility] Results Combined list of recent chemistry, hematology and other laboratory results from Department of Defense and Veterans Affairs, ranging from 15 months to all on record, depending upon the facility. Order Name Results Value Reference Range Date Interpretation Specimen Comments Source TSH THYROTROPI N [UNITS/VOL UME] IN SERUM OR PLASMA BY DETECTION LIMIT <= 0.005 MIU/L 1.388 u[IU]/mL 0.350 - 4.940 06/02 Specimen Type: PLASMA Comment: GLUCOSE The ADA [...] 160-189 mg/dL VERY HIGH: >=190 Ordering Provider: MELA GRIFFIN CCA Report Released Date/Time: Dec 14, 2023 12:09 PM Reporting Lab: [address] [phone] Performing Lab: [address] [phone] [facility] HEMOGLOB IN A1C HEMOGLOBIN A1C/HEMOGL OBIN.TOTAL IN BLOOD 6.0 3.6 - 5.7 06/02 H Specimen Type: BLOOD Comment: Giant or Large Platelets noted on Automated CBC. Values obtained from A1C measurement s can vary. For typical A1C assays, a reported value of 7.0 could actually be between 6.72 and 7.28 if measured by a reference method. A reported value of 9.0 could actually be between 8.73 and 9.27. Ref: http://www. ngsp.org/CA Pdata.asp Ordering Provider: MELA GRIFFIN CCA Report Released Date/Time: Dec 14, 2023 12:09 PM Reporting Lab: [place] [id number] Performing Lab: [address] VITAMIN D (TOTAL) 25-HYDROXY VITAMIN D3+25-HYDR OXYVITAMIN D2 [MASS/VOLU ME] IN SERUM OR PLASMA 35 ng/mL 30 - 60 06/02 Specimen Type: SERUM Comment: VITD One expert panel recommended a target range of 30-40 ng/mL. Ordering Provider: MELA GRIFFIN CCA A Report Released Date/Time: Dec 14, 2023 12:09 PM Reporting Lab: [place] [id number] Performing Lab: [address] LIPID PROFILE CHOLESTERO L [MASS/VOLU ME] IN SERUM OR PLASMA 100 mg/dL 0 - 199 06/02 Specimen Type: PLASMA Comment: GLUCOSE The ADA [...] 160-189 mg/dL VERY HIGH: >=190 Ordering Provider: MELA GRIFFIN CCA A Report Released Date/Time: Dec 14, 2023 12:09 PM Reporting Lab: [place] [id number] Performing Lab: [place] [phone] [facility] LIPID PROFILE CHOLESTERO L IN LDL [MASS/VOLU ME] IN SERUM OR PLASMA BY DIRECT ASSAY 50 mg/dL 0 - 99 06/02 Specimen Type: PLASMA Comment: GLUCOSE The ADA [...] 160-189 mg/dL VERY HIGH: >=190 Ordering Provider: MELA GRIFFIN CCA A Report Released Date/Time: Dec 14, 2023 12:09 PM Reporting Lab: [place] [id number] Performing Lab: [place] [phone] [facility] LIPID PROFILE CHOLESTERO L IN HDL [MASS/VOLU ME] IN SERUM OR PLASMA 38 mg/dL 40 06/02 L Specimen Type: PLASMA Comment: GLUCOSE The ADA [...] 160-189 mg/dL VERY HIGH: >=190 Ordering Provider: MELA GRIFFIN CCA A Report Released Date/Time: Dec 14, 2023 12:09 PM Reporting Lab: [place] [id number] Performing Lab: [place] [phone] [facility] LIPID PROFILE TRIGLYCERI DE [MASS/VOLU ME] IN SERUM OR PLASMA 101 mg/dL 0 - 149 06/02 Specimen Type: PLASMA Comment: GLUCOSE The ADA [...] 160-189 mg/dL VERY HIGH: >=190 Ordering Provider: MELA GRIFFIN CCA A Report Released Date/Time: Dec 14, 2023 12:09 PM Reporting Lab: [address] [phone] Performing Lab: [place] [phone] [facility] URINALYS IS SPECIFIC GRAVITY OF URINE 1.028 1.016 - 1.022 06/02 H Specimen Type: URINE No comment entered. Ordering Provider: MELA GRIFFIN CCA Report Released Date/Time: Dec 14, 2023 12:09 PM Reporting Lab: [address] [phone] Performing Lab: [place] [phone] [facility] URINALYS IS GLUCOSE [MASS/VOLU ME] IN URINE BY TEST STRIP >1000mg/ dL 06/02 H Specimen Type: URINE No comment entered. Ordering Provider: MELA GRIFFIN CCA A Report Released Date/Time: Dec 14, 2023 12:09 PM Reporting Lab: [place] [phone] Performing Lab: [place] [phone] [place] [address] URINALYS IS PROTEIN [MASS/VOLU ME] IN URINE BY TEST STRIP Negative mg/dL 06/02 Specimen Type: URINE No comment entered. Ordering Provider: MELA GRIFFIN CCA A Report Released Date/Time: Dec 14, 2023 12:09 PM Reporting Lab: [place] [phone] Performing Lab: [place] [id number] [place] [address] URINALYS IS PH OF URINE BY TEST STRIP 6.0 5.0 - 8.0 06/02 Specimen Type: URINE No comment entered. Ordering Provider: MELA GRIFFIN CCA A Report Released Date/Time: Dec 14, 2023 12:09 PM Reporting Lab: [place] [phone] Performing Lab: [place] [id number] URINALYS IS ERYTHROCYT ES [#/AREA] IN URINE SEDIMENT BY MICROSCOPY HIGH POWER FIELD 2 /[HPF] - 4 06/02 Specimen Type: URINE No comment entered. Ordering Provider: MELA GRIFFIN CCA A Report Released Date/Time: Dec 14, 2023 12:09 PM Reporting Lab: [place] [phone] Performing Lab: [place] [phone] [facility] URINALYS IS NITRITE [PRESENCE] IN URINE BY TEST STRIP Negative 06/02 Specimen Type: URINE No comment entered. Ordering Provider: MELA GRIFFIN CCA A Report Released Date/Time: Dec 14, 2023 12:09 PM Reporting Lab: [place] [phone] Performing Lab: [place] [phone] [place] [address] URINALYS IS LEUKOCYTE ESTERASE [PRESENCE] IN URINE BY TEST STRIP Negative 06/02 Specimen Type: URINE No comment entered. Ordering Provider: MELA GRIFFIN CCA A Report Released Date/Time: Dec 14, 2023 12:09 PM Reporting Lab: [place] [phone] Performing Lab: [place] [phone] [place] [address] URINALYS IS CLARITY OF URINE Clear 06/02 Specimen Type: URINE No comment entered. Ordering Provider: MELA GRIFFIN CCA A Report Released Date/Time: Dec 14, 2023 12:09 PM Reporting Lab: [place] [phone] Performing Lab: [place] [phone] URINALYS IS BILIRUBIN. TOTAL [MASS/VOLU ME] IN URINE BY TEST STRIP Negative mg/dL - 0.4 06/02 Specimen Type: URINE No comment entered. Ordering Provider: MELA GRIFFIN CCA A Report Released Date/Time: Dec 14, 2023 12:09 PM Reporting Lab: [place] [id number] Performing Lab: [place] [id number] URINALYS IS HEMOGLOBIN [PRESENCE] IN URINE BY TEST STRIP Negative mg/dL <0.05 - 0.05 06/02 Specimen Type: URINE No comment entered. Ordering Provider: MELA GRIFFIN CCA A Report Released Date/Time: Dec 14, 2023 12:09 PM Reporting Lab: [place] [id number] Performing Lab: [place] [id number] [facility] [place] URINALYS IS UROBILINOG EN [MASS/VOLU ME] IN URINE Negative mg/dL - 1 06/02 Specimen Type: URINE No comment entered. Ordering Provider: MELA GRIFFIN CCA A Report Released Date/Time: Dec 14, 2023 12:09 PM Reporting Lab: [place] [id number] Performing Lab: [place] [id number] [facility] [place] URINALYS IS KETONES [MASS/VOLU ME] IN URINE BY TEST STRIP Negative mg/dL - 9 06/02 Specimen Type: URINE No comment entered. Ordering Provider: MELA GRIFFIN CCA A Report Released Date/Time: Dec 14, 2023 12:09 PM Reporting Lab: [place] [id number] Performing Lab: [place] [id number] [place] [address] URINALYS IS COLOR OF URINE Light-Ye llow [none] 06/02 Specimen Type: URINE No comment entered. Ordering Provider: MELA GRIFFIN CCA A Report Released Date/Time: Dec 14, 2023 12:09 PM Reporting Lab: [place] [id number] Performing Lab: [place] [id number] [facility] CBC LEUKOCYTES [#/VOLUME] IN BLOOD BY AUTOMATED COUNT 6.3 10*3/uL 3.6 - 11.0 06/02 Specimen Type: BLOOD Comment: Giant or Large Platelets noted on Automated CBC. Ordering Provider: MELA GRIFFIN CCA A Report Released Date/Time: Dec 14, 2023 12:09 PM Reporting Lab: [place] [id number] Performing Lab: [place] [id number] [place] [address] CBC ERYTHROCYT ES [#/VOLUME] IN BLOOD BY AUTOMATED COUNT 5.13 10*6/uL 4.47 - 5.83 06/02 Specimen Type: BLOOD Comment: Giant or Large Platelets noted on Automated CBC. Ordering Provider: MELA GRIFFIN CCA A Report Released Date/Time: Dec 14, 2023 12:09 PM Reporting Lab: [place] [id number] Performing Lab: [place] [phone] [facility] CBC HEMOGLOBIN [MASS/VOLU ME] IN BLOOD 11.4 g/dL 13.6 - 17.4 06/02 L Specimen Type: BLOOD Comment: Giant or Large Platelets noted on Automated CBC. Ordering Provider: MELA GRIFFIN CCA Report Released Date/Time: Dec 14, 2023 12:09 PM Reporting Lab: [place] [id number] Performing Lab: [place] [id number] CBC HEMATOCRIT [VOLUME FRACTION] OF BLOOD BY AUTOMATED COUNT 36.0 40.0 - 51.0 06/02 L Specimen Type: BLOOD Comment: Giant or Large Platelets noted on Automated CBC. Ordering Provider: MELA GRIFFIN CCA Report Released Date/Time: Dec 14, 2023 12:09 PM Reporting Lab: [place] [id number] Performing Lab: [place] [id number] CBC MCV [ENTITIC VOLUME] BY AUTOMATED COUNT 70.1 fL 80.0 - 96.0 06/02 L Specimen Type: BLOOD Comment: Giant or Large Platelets noted on Automated CBC. Ordering Provider: MELA GRIFFIN CCA Report Released Date/Time: Dec 14, 2023 12:09 PM Reporting Lab: [place] [id number] Performing Lab: [place] [id number] CBC MCH [ENTITIC MASS] BY AUTOMATED COUNT 22.2 pg 27.0 - 31.0 06/02 L Specimen Type: BLOOD Comment: Giant or Large Platelets noted on Automated CBC. Ordering Provider: MELA GRIFFIN CCA A Report Released Date/Time: Dec 14, 2023 12:09 PM Reporting Lab: [place] [id number] Performing Lab: [place] [phone] CBC MCHC [MASS/VOLU ME] BY AUTOMATED COUNT 31.7 g/dL 31.5 - 36.5 06/02 Specimen Type: BLOOD Comment: Giant or Large Platelets noted on Automated CBC. Ordering Provider: MELA GRIFFIN CCA Report Released Date/Time: Dec 14, 2023 12:09 PM Reporting Lab: [place] [id number] Performing Lab: [place] [phone] [facility] CBC PLATELETS [#/VOLUME] IN BLOOD BY AUTOMATED COUNT 183 10*3/uL 150 - 400 06/02 Specimen Type: BLOOD Comment: Giant or Large Platelets noted on Automated CBC. Ordering Provider: MELA GRIFFIN CCA Report Released Date/Time: Dec 14, 2023 12:09 PM Reporting Lab: [place] [id number] Performing Lab: [place] [phone] [facility] CBC LYMPHOCYTE S/100 LEUKOCYTES IN BLOOD BY AUTOMATED COUNT 19.3 21.0 - 51.0 06/02 L Specimen Type: BLOOD Comment: Giant or Large Platelets noted on Automated CBC. Ordering Provider: MELA GRIFFIN CCA Report Released Date/Time: Dec 14, 2023 12:09 PM Reporting Lab: [place] [id number] Performing Lab: [place] [phone] [facility] CBC MONOCYTES/ 100 LEUKOCYTES IN BLOOD BY AUTOMATED COUNT 9.3 4.0 - 8.0 06/02 H Specimen Type: BLOOD Comment: Giant or Large Platelets noted on Automated CBC. Ordering Provider: MELA GRIFFIN CCA Report Released Date/Time: Dec 14, 2023 12:09 PM Reporting Lab: [address] [phone] Performing Lab: [address] [phone] [facility] CBC NUCLEATED ERYTHROCYT ES/100 LEUKOCYTES [RATIO] IN BLOOD BY MANUAL COUNT 0.1 /100{WBC s} 06/02 Specimen Type: BLOOD Comment: Giant or Large Platelets noted on Automated CBC. Ordering Provider: MELA GRIFFIN CCA Report Released Date/Time: Dec 14, 2023 12:09 PM Reporting Lab: [address] [phone] Performing Lab: [place] [phone] [facility] CBC ERYTHROCYT E DISTRIBUTI ON WIDTH [RATIO] BY AUTOMATED COUNT 19.0 11.2 - 15.8 06/02 H Specimen Type: BLOOD Comment: Giant or Large Platelets noted on Automated CBC. Ordering Provider: MELA GRIFFIN CCA Report Released Date/Time: Dec 14, 2023 12:09 PM Reporting Lab: [place] [id number] Performing Lab: [place] [id number] [place] [address] CBC NEUTROPHIL S/100 LEUKOCYTES IN BLOOD BY AUTOMATED COUNT 67.7 54.0 - 78.0 06/02 Specimen Type: BLOOD Comment: Giant or Large Platelets noted on Automated CBC. Ordering Provider: MELA GRIFFIN CCA Report Released Date/Time: Dec 14, 2023 12:09 PM Reporting Lab: [place] [phone] Performing Lab: [place] [phone] CBC EOSINOPHIL S/100 LEUKOCYTES IN BLOOD BY AUTOMATED COUNT 2.7 0.0 - 3.0 06/02 Specimen Type: BLOOD Comment: Giant or Large Platelets noted on Automated CBC. Ordering Provider: MELA GRIFFIN CCA Report Released Date/Time: Dec 14, 2023 12:09 PM Reporting Lab: [place] [id number] Performing Lab: [place] [phone] CBC BASOPHILS/ 100 LEUKOCYTES IN BLOOD BY AUTOMATED COUNT 1.0 0.0 - 3.0 06/02 Specimen Type: BLOOD Comment: Giant or Large Platelets noted on Automated CBC. Ordering Provider: MELA GRIFFIN CCA Report Released Date/Time: Dec 14, 2023 12:09 PM Reporting Lab: [place] [id number] Performing Lab: [place] [phone] CBC LYMPHOCYTE S [#/VOLUME] IN BLOOD BY AUTOMATED COUNT 1.2 10*3/uL 0.8 - 5.0 06/02 Specimen Type: BLOOD Comment: Giant or Large Platelets noted on Automated CBC. Ordering Provider: MELA GRIFFIN CCA A Report Released Date/Time: Dec 14, 2023 12:09 PM Reporting Lab: [place] [phone] Performing Lab: [place] [phone] [facility] CBC NEUTROPHIL S [#/VOLUME] IN BLOOD 4.3 10*3/uL 1.9 - 8.6 06/02 Specimen Type: BLOOD Comment: Giant or Large Platelets noted on Automated CBC. Ordering Provider: MELA GRIFFIN CCA A Report Released Date/Time: Dec 14, 2023 12:09 PM Reporting Lab: [place] [phone] Performing Lab: [place] [phone] [facility] CBC BASOPHILS [#/VOLUME] IN BLOOD BY AUTOMATED COUNT 0.1 10*3/uL 0.0 - 0.3 06/02 Specimen Type: BLOOD Comment: Giant or Large Platelets noted on Automated CBC. Ordering Provider: MELA GRIFFIN CCA A Report Released Date/Time: Dec 14, 2023 12:09 PM Reporting Lab: [place] [phone] Performing Lab: [place] [phone] [facility] CBC MONOCYTES [#/VOLUME] IN BLOOD BY AUTOMATED COUNT 0.6 10*3/uL 0.1 - 0.9 06/02 Specimen Type: BLOOD Comment: Giant or Large Platelets noted on Automated CBC. Ordering Provider: MELA GRIFFIN CCA A Report Released Date/Time: Dec 14, 2023 12:09 PM Reporting Lab: [address] [phone] Performing Lab: [place] [phone] [facility] CBC EOSINOPHIL S [#/VOLUME] IN BLOOD BY AUTOMATED COUNT 0.2 10*3/uL 0.0 - 0.3 06/02 Specimen Type: BLOOD Comment: Giant or Large Platelets noted on Automated CBC. Ordering Provider: MELA GRIFFIN CCA A Report Released Date/Time: Dec 14, 2023 12:09 PM Reporting Lab: [place] [phone] Performing Lab: [place] [phone] [facility] CBC PLATELET MEAN VOLUME [ENTITIC VOLUME] IN BLOOD BY AUTOMATED COUNT 10.7 fL 7.4 - 11.4 06/02 Specimen Type: BLOOD Comment: Giant or Large Platelets noted on Automated CBC. Ordering Provider: MELA GRIFFIN CCA Report Released Date/Time: Dec 14, 2023 12:09 PM Reporting Lab: [place] [phone] Performing Lab: [place] [phone] [facility] COMPREHE NSIVE METABOLI C PANEL ALBUMIN [MASS/VOLU ME] IN SERUM OR PLASMA 3.9 g/dL 3.5 - 4.8 06/02 Specimen Type: PLASMA Comment: GLUCOSE The ADA recommends a fasting glucose of 99 mg/dL as the GLUCOSE upper limit of normal. TP Per package insert reference range for recumbent is 6.0 to 7.8 TP g/dL. Plasma samples will generally have higher values (about TP 0.2 to 0.4 g/dL higher) due to presence of fibrinogen. Ordering Provider: MELA GRIFFIN CCA Report Released Date/Time: Dec 14, 2023 12:09 PM Reporting Lab: [place] [phone] Performing Lab: [place] [phone] [place] [address] COMPREHE NSIVE METABOLI C PANEL ALKALINE PHOSPHATAS E [ENZYMATIC ACTIVITY/V OLUME] IN SERUM OR PLASMA 85 U/L 40 - 150 06/02 Specimen Type: PLASMA Comment: GLUCOSE The ADA recommends a fasting glucose of 99 mg/dL as the GLUCOSE upper limit of normal. TP Per package insert reference range for recumbent is 6.0 to 7.8 TP g/dL. Plasma samples will generally have higher values (about TP 0.2 to 0.4 g/dL higher) due to presence of fibrinogen. Ordering Provider: MELA GRIFFIN CCA A Report Released Date/Time: Dec 14, 2023 12:09 PM Reporting Lab: [place] [phone] Performing Lab: [place] [phone] [facility] COMPREHE NSIVE METABOLI C PANEL ALANINE AMINOTRANS FERASE [ENZYMATIC ACTIVITY/V OLUME] IN SERUM OR PLASMA 10 U/L 0 - 55 06/02 Specimen Type: PLASMA Comment: GLUCOSE The ADA recommends a fasting glucose of 99 mg/dL as the GLUCOSE upper limit of normal. TP Per package insert reference range for recumbent is 6.0 to 7.8 TP g/dL. Plasma samples will generally have higher values (about TP 0.2 to 0.4 g/dL higher) due to presence of fibrinogen. Ordering Provider: MELA GRIFFIN CCA Report Released Date/Time: Dec 14, 2023 12:09 PM Reporting Lab: [place] [id number] Performing Lab: [address] NSIVE METABOLI C PANEL ASPARTATE AMINOTRANS FERASE [ENZYMATIC ACTIVITY/V OLUME] IN SERUM OR PLASMA 18 U/L 10 - 40 06/02 Specimen Type: PLASMA Comment: GLUCOSE The ADA recommends a fasting glucose of 99 mg/dL as the GLUCOSE upper limit of normal. TP Per package insert reference range for recumbent is 6.0 to 7.8 TP g/dL. Plasma samples will generally have higher values (about TP 0.2 to 0.4 g/dL higher) due to presence of fibrinogen. Ordering Provider: MELA GRIFFIN CCA Report Released Date/Time: Dec 14, 2023 12:09 PM Reporting Lab: [place] [id number] Performing Lab: [address] NSIVE METABOLI C PANEL UREA NITROGEN [MASS/VOLU ME] IN SERUM OR PLASMA 4.3 mg/dL 8.4 - 25.7 06/02 L Specimen Type: PLASMA Comment: GLUCOSE The ADA recommends a fasting glucose of 99 mg/dL as the GLUCOSE upper limit of normal. TP Per package insert reference range for recumbent is 6.0 to 7.8 TP g/dL. Plasma samples will generally have higher values (about TP 0.2 to 0.4 g/dL higher) due to presence of fibrinogen. Ordering Provider: MELA GRIFFIN CCA A Report Released Date/Time: Dec 14, 2023 12:09 PM Reporting Lab: [place] [id number] Performing Lab: [address] COMPREHE NSIVE METABOLI C PANEL CALCIUM [MASS/VOLU ME] IN SERUM OR PLASMA 8.8 mg/dL 8.6 - 10.3 06/02 Specimen Type: PLASMA Comment: GLUCOSE The ADA recommends a fasting glucose of 99 mg/dL as the GLUCOSE upper limit of normal. TP Per package insert reference range for recumbent is 6.0 to 7.8 TP g/dL. Plasma samples will generally have higher values (about TP 0.2 to 0.4 g/dL higher) due to presence of fibrinogen. Ordering Provider: MELA GRIFFIN CCA A Report Released Date/Time: Dec 14, 2023 12:09 PM Reporting Lab: [place] [id number] Performing Lab: [address] COMPREHE NSIVE METABOLI C PANEL CREATININE [MASS/VOLU ME] IN SERUM OR PLASMA 0.8 mg/dL 0.7 - 1.3 06/02 Specimen Type: PLASMA Comment: GLUCOSE The ADA recommends a fasting glucose of 99 mg/dL as the GLUCOSE upper limit of normal. TP Per package insert reference range for recumbent is 6.0 to 7.8 TP g/dL. Plasma samples will generally have higher values (about TP 0.2 to 0.4 g/dL higher) due to presence of fibrinogen. Ordering Provider: MELA GRIFFIN CCA A Report Released Date/Time: Dec 14, 2023 12:09 PM Reporting Lab: [address] Performing Lab: [address] COMPREHE NSIVE METABOLI C PANEL CARBON DIOXIDE, TOTAL [MOLES/VOL UME] IN SERUM OR PLASMA 24 mmol/L 22 - 30 06/02 Specimen Type: PLASMA Comment: GLUCOSE The ADA recommends a fasting glucose of 99 mg/dL as the GLUCOSE upper limit of normal. TP Per package insert reference range for recumbent is 6.0 to 7.8 TP g/dL. Plasma samples will generally have higher values (about TP 0.2 to 0.4 g/dL higher) due to presence of fibrinogen. Ordering Provider: MELA GRIFFIN CCA A Report Released Date/Time: Dec 14, 2023 12:09 PM Reporting Lab: [place] [phone] Performing Lab: [place] [phone] [place] [address] COMPREHE NSIVE METABOLI C PANEL GLUCOSE [MASS/VOLU ME] IN SERUM OR PLASMA 87 mg/dL 74 - 99 06/02 Specimen Type: PLASMA Comment: GLUCOSE The ADA recommends a fasting glucose of 99 mg/dL as the GLUCOSE upper limit of normal. TP Per package insert reference range for recumbent is 6.0 to 7.8 TP g/dL. Plasma samples will generally have higher values (about TP 0.2 to 0.4 g/dL higher) due to presence of fibrinogen. Ordering Provider: MELA GRIFFIN CCA A Report Released Date/Time: Dec 14, 2023 12:09 PM Reporting Lab: [place] [phone] Performing Lab: [place] [id number] [place] [address] COMPREHE NSIVE METABOLI C PANEL PROTEIN [MASS/VOLU ME] IN SERUM OR PLASMA 7.0 g/dL 6.4 - 8.3 06/02 Specimen Type: PLASMA Comment: GLUCOSE The ADA recommends a fasting glucose of 99 mg/dL as the GLUCOSE upper limit of normal. TP Per package insert reference range for recumbent is 6.0 to 7.8 TP g/dL. Plasma samples will generally have higher values (about TP 0.2 to 0.4 g/dL higher) due to presence of fibrinogen. Ordering Provider: MELA GRIFFIN CCA A Report Released Date/Time: Dec 14, 2023 12:09 PM Reporting Lab: [place] [phone] Performing Lab: [place] [phone] [facility] COMPREHE NSIVE METABOLI C PANEL SODIUM [MOLES/VOL UME] IN SERUM OR PLASMA 140 mmol/L 134 - 144 06/02 Specimen Type: PLASMA Comment: GLUCOSE The ADA recommends a fasting glucose of 99 mg/dL as the GLUCOSE upper limit of normal. TP Per package insert reference range for recumbent is 6.0 to 7.8 TP g/dL. Plasma samples will generally have higher values (about TP 0.2 to 0.4 g/dL higher) due to presence of fibrinogen. Ordering Provider: MELA GRIFFIN CCA A Report Released Date/Time: Dec 14, 2023 12:09 PM Reporting Lab: [place] [phone] Performing Lab: [address] COMPREHE NSIVE METABOLI C PANEL CHLORIDE [MOLES/VOL UME] IN SERUM OR PLASMA 108 mmol/L 99 - 112 06/02 Specimen Type: PLASMA Comment: GLUCOSE The ADA recommends a fasting glucose of 99 mg/dL as the GLUCOSE upper limit of normal. TP Per package insert reference range for recumbent is 6.0 to 7.8 TP g/dL. Plasma samples will generally have higher values (about TP 0.2 to 0.4 g/dL higher) due to presence of fibrinogen. Ordering Provider: MELA GRIFFIN CCA A Report Released Date/Time: Dec 14, 2023 12:09 PM Reporting Lab: [place] [phone] Performing Lab: [address] COMPREHE NSIVE METABOLI C PANEL BILIRUBIN. TOTAL [MASS/VOLU ME] IN SERUM OR PLASMA 0.4 mg/dL 0.2 - 1.2 06/02 Specimen Type: PLASMA Comment: GLUCOSE The ADA recommends a fasting glucose of 99 mg/dL as the GLUCOSE upper limit of normal. TP Per package insert reference range for recumbent is 6.0 to 7.8 TP g/dL. Plasma samples will generally have higher values (about TP 0.2 to 0.4 g/dL higher) due to presence of fibrinogen. Ordering Provider: MELA GRIFFIN CCA A Report Released Date/Time: Dec 14, 2023 12:09 PM Reporting Lab: [place] [phone] Performing Lab: [place] [phone] [facility] COMPREHE NSIVE METABOLI C PANEL POTASSIUM [MOLES/VOL UME] IN SERUM OR PLASMA 2.9 mmol/L 3.5 - 5.1 06/02 L Specimen Type: PLASMA Comment: GLUCOSE The ADA recommends a fasting glucose of 99 mg/dL as the GLUCOSE upper limit of normal. TP Per package insert reference range for recumbent is 6.0 to 7.8 TP g/dL. Plasma samples will generally have higher values (about TP 0.2 to 0.4 g/dL higher) due to presence of fibrinogen. Ordering Provider: MELA GRIFFIN CCA A Report Released Date/Time: Dec 14, 2023 12:09 PM Reporting Lab: [place] [phone] Performing Lab: [place] [phone] [place] [address] COMPREH NSIVE METABOLI C PANEL ANION GAP IN SERUM OR PLASMA 11 mmol/L 10 - 20 06/02 Specimen Type: PLASMA Comment: GLUCOSE The ADA recommends a fasting glucose of 99 mg/dL as the GLUCOSE upper limit of normal. TP Per package insert reference range for recumbent is 6.0 to 7.8 TP g/dL. Plasma samples will generally have higher values (about TP 0.2 to 0.4 g/dL higher) due to presence of fibrinogen. Ordering Provider: MELA GRIFFIN CCA A Report Released Date/Time: Dec 14, 2023 12:09 PM Reporting Lab: [place] [phone] Performing Lab: [place] [phone] [facility] NSIVE METABOLI C PANEL GLOMERULAR FILTRATION RATE/1.73 SQ M.PREDICTE D [VOLUME RATE/AREA] IN SERUM, PLASMA OR BLOOD BY CREATININE -BASED FORMULA (CKD-EPI 2020) 91 06/02 Specimen Type: PLASMA Comment: GLUCOSE The ADA recommends a fasting glucose of 99 mg/dL as the GLUCOSE upper limit of normal. TP Per package insert reference range for recumbent is 6.0 to 7.8 TP g/dL. Plasma samples will generally have higher values (about TP 0.2 to 0.4 g/dL higher) due to presence of fibrinogen. Ordering Provider: MELA GRIFFIN CCA Report Released Date/Time: Dec 14, 2023 12:09 PM Reporting Lab: [place] [phone] Performing Lab: [place] [phone] HEPATIC FUNCTION PANEL ALBUMIN [MASS/VOLU ME] IN SERUM OR PLASMA 3.7 g/dL 3.5 - 4.8 04/04 Specimen Type: PLASMA Comment: TP Per package insert reference range for recumbent is 6.0 to 7.8 TP g/dL and for >60 y/o is lower by 0.2 g/dL. Plasma samples will TP generally have higher values (about 0.2 to 0.4 g/dL higher) due TP to presence of fibrinogen. Ordering Provider: BRAULIO MOJICA ND Report Released Date/Time: Apr 04, 2024 01:05 PM Reporting Lab: [place] [phone] Performing Lab: [place] [phone] [facility] HEPATIC FUNCTION PANEL ALKALINE PHOSPHATAS E [ENZYMATIC ACTIVITY/V OLUME] IN SERUM OR PLASMA 89 U/L 40 - 150 04/04 Specimen Type: PLASMA Comment: TP Per package insert reference range for recumbent is 6.0 to 7.8 TP g/dL and for >60 y/o is lower by 0.2 g/dL. Plasma samples will TP generally have higher values (about 0.2 to 0.4 g/dL higher) due TP to presence of fibrinogen. Ordering Provider: BRAULIO MOJICA ND Report Released Date/Time: Apr 04, 2024 01:05 PM Reporting Lab: [place] [phone] Performing Lab: [address] [facility] HEPATIC FUNCTION PANEL ALANINE AMINOTRANS FERASE [ENZYMATIC ACTIVITY/V OLUME] IN SERUM OR PLASMA 13 U/L <55 - 55 04/04 Specimen Type: PLASMA Comment: TP Per package insert reference range for recumbent is 6.0 to 7.8 TP g/dL and for >60 y/o is lower by 0.2 g/dL. Plasma samples will TP generally have higher values (about 0.2 to 0.4 g/dL higher) due TP to presence of fibrinogen. Ordering Provider: BRAULIO MOJICA ND Report Released Date/Time: Apr 04, 2024 01:05 PM Reporting Lab: [address] [phone] Performing Lab: [place] [phone] [facility] HEPATIC FUNCTION PANEL ASPARTATE AMINOTRANS FERASE [ENZYMATIC ACTIVITY/V OLUME] IN SERUM OR PLASMA 17 U/L 10 - 40 04/04 Specimen Type: PLASMA Comment: TP Per package insert reference range for recumbent is 6.0 to 7.8 TP g/dL and for >60 y/o is lower by 0.2 g/dL. Plasma samples will TP generally have higher values (about 0.2 to 0.4 g/dL higher) due TP to presence of fibrinogen. Ordering Provider: BRAULIO MOJICA ND Report Released Date/Time: Apr 04, 2024 01:05 PM Reporting Lab: [place] [id number] Performing Lab: [place] [phone] [facility] HEPATIC FUNCTION PANEL BILIRUBIN. DIRECT [MASS/VOLU ME] IN SERUM OR PLASMA 0.2 mg/dL <0.5 - 0.5 04/04 Specimen Type: PLASMA Comment: TP Per package insert reference range for recumbent is 6.0 to 7.8 TP g/dL and for >60 y/o is lower by 0.2 g/dL. Plasma samples will TP generally have higher values (about 0.2 to 0.4 g/dL higher) due TP to presence of fibrinogen. Ordering Provider: BRAULIO MOJICA ND Report Released Date/Time: Apr 04, 2024 01:05 PM Reporting Lab: [place] [phone] Performing Lab: [place] [phone] [facility] HEPATIC FUNCTION PANEL PROTEIN [MASS/VOLU ME] IN SERUM OR PLASMA 6.8 g/dL 6.4 - 8.3 04/04 Specimen Type: PLASMA Comment: TP Per package insert reference range for recumbent is 6.0 to 7.8 TP g/dL and for >60 y/o is lower by 0.2 g/dL. Plasma samples will TP generally have higher values (about 0.2 to 0.4 g/dL higher) due TP to presence of fibrinogen. Ordering Provider: BRAULIO MOJICA ND Report Released Date/Time: Apr 04, 2024 01:05 PM Reporting Lab: [place] [phone] Performing Lab: [place] [phone] [facility] HEPATIC FUNCTION PANEL BILIRUBIN. TOTAL [MASS/VOLU ME] IN SERUM OR PLASMA 0.3 mg/dL 0.2 - 1.2 04/04 Specimen Type: PLASMA Comment: TP Per package insert reference range for recumbent is 6.0 to 7.8 TP g/dL and for >60 y/o is lower by 0.2 g/dL. Plasma samples will TP generally have higher values (about 0.2 to 0.4 g/dL higher) due TP to presence of fibrinogen. Ordering Provider: BRAULIO MOJICA ND Report Released Date/Time: Apr 04, 2024 01:05 PM Reporting Lab: [place] [phone] Performing Lab: [place] [phone] [facility] CREATINI NE (W EGFR) CREATININE [MASS/VOLU ME] IN SERUM OR PLASMA 1.0 mg/dL 0.7 - 1.3 04/04 Specimen Type: PLASMA Comment: TP Per package insert reference range for recumbent is 6.0 to 7.8 TP g/dL and for >60 y/o is lower by 0.2 g/dL. Plasma samples will TP generally have higher values (about 0.2 to 0.4 g/dL higher) due TP to presence of fibrinogen. Ordering Provider: BRAULIO MOJICA ND Report Released Date/Time: Apr 04, 2024 01:05 PM Reporting Lab: [address] [phone] Performing Lab: [place] [phone] [facility] CREATINI NE (W EGFR) GLOMERULAR FILTRATION RATE/1.73 SQ M.PREDICTE D [VOLUME RATE/AREA] IN SERUM, PLASMA OR BLOOD BY CREATININE -BASED FORMULA (CKD-EPI 2020) 78.0 mL/min 04/04 Specimen Type: PLASMA Comment: TP Per package insert reference range for recumbent is 6.0 to 7.8 TP g/dL and for >60 y/o is lower by 0.2 g/dL. Plasma samples will TP generally have higher values (about 0.2 to 0.4 g/dL higher) due TP to presence of fibrinogen. Ordering Provider: BRAULIO MOJICA ND Report Released Date/Time: Apr 04, 2024 01:05 PM Reporting Lab: [place] [id number] Performing Lab: [place] [phone] CBC LEUKOCYTES [#/VOLUME] IN BLOOD BY AUTOMATED COUNT 6.8 10*3/uL 3.6 - 11.0 04/04 Specimen Type: BLOOD No comment entered. Ordering Provider: BRAULIO MOJICA ND Report Released Date/Time: Apr 04, 2024 01:05 PM Reporting Lab: [place] [id number] Performing Lab: [place] [phone] CBC ERYTHROCYT ES [#/VOLUME] IN BLOOD BY AUTOMATED COUNT 4.80 10*6/uL 4.47 - 5.83 04/04 Specimen Type: BLOOD No comment entered. Ordering Provider: BRAULIO MOJICA ND Report Released Date/Time: Apr 04, 2024 01:05 PM Reporting Lab: [place] [phone] Performing Lab: [place] [phone] CBC HEMOGLOBIN [MASS/VOLU ME] IN BLOOD 11.2 g/dL 13.6 - 17.4 04/04 L Specimen Type: BLOOD No comment entered. Ordering Provider: BRAULIO MOJICA ND Report Released Date/Time: Apr 04, 2024 01:05 PM Reporting Lab: [place] [id number] Performing Lab: [address] [phone] [facility] CBC HEMATOCRIT [VOLUME FRACTION] OF BLOOD BY AUTOMATED COUNT 34.9 40.0 - 51.0 04/04 L Specimen Type: BLOOD No comment entered. Ordering Provider: BRAULIO MOJICA ND Report Released Date/Time: Apr 04, 2024 01:05 PM Reporting Lab: [facility] [id number] Performing Lab: [facility] [id number] [place] [address] CBC MCV [ENTITIC VOLUME] BY AUTOMATED COUNT 72.7 fL 80.0 - 96.0 04/04 L Specimen Type: BLOOD No comment entered. Ordering Provider: BRAULIO MOJICA ND Report Released Date/Time: Apr 04, 2024 01:05 PM Reporting Lab: [facility] [id number] Performing Lab: [facility] [place] [id number] [place] [address] CBC MCH [ENTITIC MASS] BY AUTOMATED COUNT 23.3 pg 27.0 - 31.0 04/04 L Specimen Type: BLOOD No comment entered. Ordering Provider: BRAULIO MOJICA ND Report Released Date/Time: Apr 04, 2024 01:05 PM Reporting Lab: [place] [id number] Performing Lab: [facility] [id number] [place] [address] CBC MCHC [MASS/VOLU ME] BY AUTOMATED COUNT 32.1 g/dL 31.5 - 36.5 04/04 Specimen Type: BLOOD No comment entered. Ordering Provider: BRAULIO MOJICA ND Report Released Date/Time: Apr 04, 2024 01:05 PM Reporting Lab: [place] [id number] Performing Lab: [place] [id number] CBC PLATELETS [#/VOLUME] IN BLOOD BY AUTOMATED COUNT 171 10*3/uL 150 - 400 04/04 Specimen Type: BLOOD No comment entered. Ordering Provider: BRAULIO MOJICA ND Report Released Date/Time: Apr 04, 2024 01:05 PM Reporting Lab: [place] [id number] Performing Lab: [place] [id number] CBC LYMPHOCYTE S/100 LEUKOCYTES IN BLOOD BY AUTOMATED COUNT 20.6 21.0 - 51.0 04/04 L Specimen Type: BLOOD No comment entered. Ordering Provider: BRAULIO MOJICA ND Report Released Date/Time: Apr 04, 2024 01:05 PM Reporting Lab: [place] [id number] Performing Lab: [place] [id number] CBC MONOCYTES/ 100 LEUKOCYTES IN BLOOD BY AUTOMATED COUNT 11.2 4.0 - 8.0 04/04 H Specimen Type: BLOOD No comment entered. Ordering Provider: BRAULIO MOJICA ND Report Released Date/Time: Apr 04, 2024 01:05 PM Reporting Lab: [place] [id number] Performing Lab: [place] [id number] CBC NUCLEATED ERYTHROCYT ES/100 LEUKOCYTES [RATIO] IN BLOOD BY MANUAL COUNT 0.0 /100{WBC s} 04/04 Specimen Type: BLOOD No comment entered. Ordering Provider: BRAULIO MOJICA ND Report Released Date/Time: Apr 04, 2024 01:05 PM Reporting Lab: [place] [id number] Performing Lab: [place] [id number] [place] [address] CBC ERYTHROCYT E DISTRIBUTI ON WIDTH [RATIO] BY AUTOMATED COUNT 19.6 11.2 - 15.8 04/04 H Specimen Type: BLOOD No comment entered. Ordering Provider: BRAULIO MOJICA ND Report Released Date/Time: Apr 04, 2024 01:05 PM Reporting Lab: [address] [id number] Performing Lab: [place] [id number] [facility] CBC NEUTROPHIL S/100 LEUKOCYTES IN BLOOD BY AUTOMATED COUNT 64.5 54.0 - 78.0 04/04 Specimen Type: BLOOD No comment entered. Ordering Provider: BRAULIO MOJICA ND Report Released Date/Time: Apr 04, 2024 01:05 PM Reporting Lab: [place] [id number] Performing Lab: [place] [id number] [place] [address] CBC EOSINOPHIL S/100 LEUKOCYTES IN BLOOD BY AUTOMATED COUNT 3.1 0.0 - 3.0 04/04 H Specimen Type: BLOOD No comment entered. Ordering Provider: BRAULIO MOJICA ND Report Released Date/Time: Apr 04, 2024 01:05 PM Reporting Lab: [place] [id number] Performing Lab: [place] [id number] CBC BASOPHILS/ 100 LEUKOCYTES IN BLOOD BY AUTOMATED COUNT 0.6 0.0 - 3.0 04/04 Specimen Type: BLOOD No comment entered. Ordering Provider: BRAULIO MOJICA ND Report Released Date/Time: Apr 04, 2024 01:05 PM Reporting Lab: [place] [id number] Performing Lab: [place] [id number] CBC LYMPHOCYTE S [#/VOLUME] IN BLOOD BY AUTOMATED COUNT 1.4 10*3/uL 0.8 - 5.0 04/04 Specimen Type: BLOOD No comment entered. Ordering Provider: BRAULIO MOJICA ND Report Released Date/Time: Apr 04, 2024 01:05 PM Reporting Lab: [place] [id number] Performing Lab: [place] [id number] CBC NEUTROPHIL S [#/VOLUME] IN BLOOD 4.4 10*3/uL 1.9 - 8.6 04/04 Specimen Type: BLOOD No comment entered. Ordering Provider: BRAULIO MOJICA ND Report Released Date/Time: Apr 04, 2024 01:05 PM Reporting Lab: [place] [id number] Performing Lab: [place] [id number] [facility] CBC BASOPHILS [#/VOLUME] IN BLOOD BY AUTOMATED COUNT 0.0 10*3/uL 0.0 - 0.3 04/04 Specimen Type: BLOOD No comment entered. Ordering Provider: BRAULIO MOJICA ND Report Released Date/Time: Apr 04, 2024 01:05 PM Reporting Lab: [place] [id number] Performing Lab: [place] [id number] [facility] CBC MONOCYTES [#/VOLUME] IN BLOOD BY AUTOMATED COUNT 0.8 10*3/uL 0.1 - 0.9 04/04 Specimen Type: BLOOD No comment entered. Ordering Provider: BRAULIO MOJICA ND Report Released Date/Time: Apr 04, 2024 01:05 PM Reporting Lab: [place] [id number] Performing Lab: [place] [id number] CBC EOSINOPHIL S [#/VOLUME] IN BLOOD BY AUTOMATED COUNT 0.2 10*3/uL 0.0 - 0.3 04/04 Specimen Type: BLOOD No comment entered. Ordering Provider: BRAULIO MOJICA ND Report Released Date/Time: Apr 04, 2024 01:05 PM Reporting Lab: [place] [id number] Performing Lab: [place] [id number] CBC PLATELET MEAN VOLUME [ENTITIC VOLUME] IN BLOOD BY AUTOMATED COUNT 10.1 fL 7.4 - 11.4 04/04 Specimen Type: BLOOD No comment entered. Ordering Provider: BRAULIO MOJICA ND Report Released Date/Time: Apr 04, 2024 01:05 PM Reporting Lab: [place] [phone] Performing Lab: [place] [id number] [facility] Vital Signs Combined list of inpatient and outpatient Vital Signs from Department of Defense and Veterans Affairs, ranging from 12 months to all on record, depending upon the facility. Vital Sign Value Date Comments Source SYSTOLIC BLOOD PRESSURE 126 06/21/2024 10:34:38 [facility] DIASTOLIC BLOOD PRESSURE 69 06/21/2024 10:34:38 [facility] PULSE OXIMETRY 97 06/21/2024 10:34:38 [facility] WEIGHT 156 06/21/2024 10:34:38 [facility] BMI 24 kg/m2 06/21/2024 10:34:38 [facility] PAIN 0 06/21/2024 10:34:38 [facility] TEMPERATURE 97.8 06/21/2024 10:34:38 [facility] PULSE 58 06/21/2024 10:34:38 [facility] RESPIRATION 16 06/21/2024 10:34:38 [facility] SYSTOLIC BLOOD PRESSURE 120 06/02/2024 10:52:57 [facility] DIASTOLIC BLOOD PRESSURE 61 06/02/2024 10:52:57 [facility] PULSE OXIMETRY 98 06/02/2024 10:52:57 [facility] WEIGHT 155 06/02/2024 10:52:57 [facility] BMI 24 kg/m2 06/02/2024 10:52:57 [facility] PAIN 0 06/02/2024 10:52:57 [facility] HEIGHT 67 06/02/2024 10:52:57 [facility] TEMPERATURE 97.4 06/02/2024 10:52:57 [facility] PULSE 73 06/02/2024 10:52:57 [facility] RESPIRATION 16 06/02/2024 10:52:57 [facility]STOL[facility] BLO[facility] PRESSURE 139 03/21/2024 11:33:21 [facility] DIASTOLIC BLOOD PRESSURE 63 03/21/2024 11:33:21 [facility] PULSE OXIMETRY 95 03/21/2024 11:33:21 [facility] WEIGHT 157 03/21/2024 11:33:21 [facility] BMI 25 kg/m2 03/21/2024 11:33:21 [facility] 0 03/21/2024 11:33:21 [facility] HEIGHT 67 03/21/2024 11:33:21 [facility] TEMPERATURE 96.5 03/21/2024 11:33:21 [facility] 69 03/21/2024 11:33:21 [facility] RESPIRATION 16 03/21/2024 11:33:21 [facility] SYSTOLIC BLOOD PRESSURE 111 12/14/2023 11:36:54 [facility] DIASTOLIC BLOOD PRESSURE 64 12/14/2023 11:36:54 [facility] PULSE OXIMETRY 95 12/14/2023 11:36:54 [facility] WEIGHT 167 12/14/2023 11:36:54 [facility] BMI 26 kg/m2 12/14/2023 11:36:54 [facility] PAIN 0 12/14/2023 11:36:54 [facility] TEMPERATURE 98.3 12/14/2023 11:36:54 [facility] PULSE 65 12/14/2023 11:36:54 [facility] RESPIRATION 16 12/14/2023 11:36:54 [facility] PAIN 0 11/11/2023 10:10:00 [facility] Encounters Combined list of: 1) Encounters from Department of [facility] Affairs facilities going backup to the last 18 months, not all [place] inpatient encounters are included; 2) Encounters from the Department of Defense facilities going backup to 280 months. Location Location Details Encounter Type Encounter Number Reason For Visit Attending Provider ADM Date DC Date Status Disposition Source [facility] MTMS BY PHARM ADDL 15 MIN [id number] Diagnos is: ICD-10- CM F43.10 Post-tr aumatic stress disorde r, unspeci Morro Ortega LESLIE J 04/13 [facility] MTMS BY PHARM ADDL 15 MIN [id number] Diagnos is: ICD-10- CM F43.10 Post-tr aumatic stress disorde r, unspeci Morro Ortega LESLIE J 05/10 [facility] OFFICE O/P EST LOW 20 MIN [id number] Diagnos is: ICD-10- CM 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 ropathy STONATANAEL FARIAS NNIFER 06/02 [facility] Outpatient Encounter [id number] 06/07 [facility] MTMS BY PHARM EST 15 MIN [id number] Diagnos is: ICD-10- CM Z51.81 Encount er for therape utic drug level monitor ry REECETHERESAMIGDALIA Morrissey A 06/08 [facility] PSYTX W PT 30 MINUTES [id number] [id number] Diagnos is: ICD-10- CM F32.A Depress ion, unspeci [facility]IN Mata L 06/09 [facility] OFFICE O/P EST MOD 30 MIN [id number] [id number] Diagnos is: ICD-10- CM N40.1 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 ELIASREJI ECCA A 06/13 [facility] MTMS BY PHARM ADDL 15 MIN [id number] [id number] Diagnos is: ICD-10- CM F43.10 Post-tr aumatic stress disorde r, unspeci Morro Ortega LESLIE J 06/13 [facility] OFF[facility] O/P EST LOW 20 MIN [id number] [id number] Diagnos is: ICD-10- CM H61.22 Impacte d cerumen , left ear ELIAS,REJI ECCA A 06/24 [facility] OFFICE O/P EST LOW 20 MIN [id number] [id number] Diagnos is: ICD-10- CM L57.0 Actinic keratos is ROBERTO VICKERS A 06/29 [facility] MTMS BY PHARM ADDL 15 MIN [id number] [id number] Diagnos is: ICD-10- CM F43.10 Post-tr aumatic stress disorde r, unspeci fied WILLBORN,R LESLIE Nikolai 07/05 [facility] OFF[facility] O/P EST LOW 20 MIN [id number] [id number] Diagnos is: ICD-10- CM H61.22 Impacte d cerumen , left ear REJI GRIFFIN ECCA A 07/08 [facility] Outpatient Encounter [id number] 07/12 [facility] Outpatient Encounter [id number] EMILY,M MALA C 07/29 [facility] MTMS BY PHARM ADDL 15 MIN [id number] [id number] Diagnos is: ICD-10- CM F43.10 Post-tr aumatic stress disorde r, unspeci oMrro Ortega LESLIE Nikolai 08/17 [facility] PSYTX W PT 30 MINUTES [id number] [id number] Diagnos is: ICD-10- CM F32.A Depress ion, unspeci CAROLIN Mata L 09/02 [facility] OFFICE O/P EST LOW 20 MIN [id number] [id number] Diagnos is: ICD-10- CM E11.40 Type 2 diabete s mellitu s with diabeti c neuropa thy, unsp NATANAEL LOUISEIFER 09/08 [facility] MTMS BY PHARM EST 15 MIN [id number] [id number] Diagnos is: ICD-10- CM F43.10 Post-tr aumatic stress disorde r, unspeci Morro Ortega LESLIE Nikolai 09/30 [facility] ORTHOTIC MGMT&TRAIN G 1ST ENC [id number] [id number] Diagnos is: ICD-10- CM E11.9 Type 2 diabete s mellitu s without complic ations [facility] Johnson 10/06 [facility] IMMUNIZ[facility] [place] ADMIN [id number] [id number] Diagnos is: ICD-10- CM Z23 Encount er for immuniz ation Halima DIAZ 11/10 [facility] ORTHOTIC MGMT&TRAIN G 1ST ENC 02221-0.54 [id number] Diagnos is: ICD-10- CM E11.9 Type 2 diabete s mellitu s without complic ations [facility] IETONYA Johnson M 11/10 [facility] OFFICE O/P EST MOD 30 MIN [id number] [id number] Diagnos is: ICD-10- CM Z12.83 Encount er for screeni ng for maligna nt neoplas m of skin DOMINIC LINDSEY 11/23 [facility] PSYTX W PT 30 MINUTES 62007-6.54 [id number] Diagnos is: ICD-10- CM F32.A Depress ion, unspeci fied [facility]IN XIONG L 12/06 [facility] Outpatient Encounter [id number] [id number] 12/13 [facility] OFFICE O/P EST MOD 30 MIN [id number] [id number] Diagnos is: ICD-10- CM N40.1 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 ELIAS,REJI ECCA A 12/13 [facility] OFF[facility] O/P EST MOD 30 MIN [id number] [id number] Diagnos is: ICD-10- CM E11.9 Type 2 diabete s mellitu s without complic ations AISHA COTTON 12/13 [facility] MTMS BY PHARM ADDL 15 MIN [id number] [id number] Diagnos is: ICD-10- CM F43.10 Post-tr aumatic stress disorde r, unspeci fied VIRI,R LESLIE J 12/13 [facility] OFFICE O/P EST LOW 20 MIN [id number] [id number] Diagnos is: ICD-10- CM 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 ropathy NATANAEL LOUISE NNIFER 12/13 [facility] Outpatient Encounter [id number] 12/14 [facility] Outpatient Encounter [id number] 12/16 [facility] Outpatient Encounter [id number] [id number] CASEY FOSTER 12/22 [facility] VISIT TO DETERM LDCT ELIG [id number] [id number] Diagnos is: ICD-10- CM F17.210 Nicotin e depende nce, cigaret james, uncompl icated Ha BISHOP 12/27 [facility] MTMS BY PHARM ADDL 15 MIN [id number] [id number] Diagnos is: ICD-10- CM F43.10 Post-tr aumatic stress disorde r, unspeci fied VIRIR LESLIE J 01/31 [facility] OFFICE O/P EST LOW 20 MIN [id number] [id number] Diagnos is: ICD-10- CM 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, unspeci fied NATANAEL LOUISE NNIFER 03/21 [facility] MTMS BY PHARM ADDL 15 MIN [id number] [id number] Diagnos is: ICD-10- CM F43.10 Post-tr aumatic stress disorde r, unspeci fied VIRIR LESLIE J 03/21 [facility] Outpatient Encounter [id number] 03/22 [facility] Outpatient Encounter [id number] 03/22 [facility] Outpatient Encounter [id number] [id number] 04/04 [facility] Outpatient Encounter [id number] [id number] 04/05 [facility] NQHP OL DIG ASSMT&MGMT 5-10 [id number] [id number] Diagnos is: ICD-10- CM Z51.81 Encount er for therape uti drug level monitor AISHA Rojo 04/05 [facility] TTE W/DOPPLER COMPLETE [id number] [id number] Diagnos is: ICD-10- CM I50.32 Chronic diastol ic (conges tive) heart failure FLETCHER BARBER 04/06 [facility] Outpatient Encounter [id number] 04/11 [facility] MTMS BY PHARM ADDL 15 MIN [id number] [id number] Diagnos is: ICD-10- CM F43.10 Post-tr aumatic stress disorde r, unspeci finaty MEREDITHR LESLIE J 04/18 NANCY Padilla [facility] Outpatient Encounter [id number] 04/25 [facility] Outpatient Encounter [id number] 05/03 [facility] MTMS BY PHARM ADDL 15 MIN [id number] [id number] Diagnos is: ICD-10- CM F43.10 Post-tr aumatic stress disorde r, unspeci finaty MEREDITHR LESLIE J 06/02 [facility] [facility] OFF/OP EST MAY X REQ PHY/QHP [id number] [id number] Diagnos is: ICD-10- CM R42 Dizzine ss and giddine ss ADALGISA-RANDELL SHAHID A 06/02 [place] [facility] Outpatient Encounter [id number] 06/21 [facility] EST MOD 30 MIN [id number] [id number] Diagnos is: ICD-10- CM I50.32 Chronic diastol ic (conges tive) heart failure REJI GRIFFIN A 06/21 [place] [facility] OFFICE O/P EST LOW 20 MIN [id number] [id number] Diagnos is: ICD-10- CM 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 ropNATANAEL Mason 06/28 [place] [facility] Outpatient Encounter [id number] 06/28 [facility] Outpatient Encounter [id number] 06/29 [facility] MTMS BY PHARM ADDL 15 MIN [id number] [id number] Diagnos is: ICD-10- CM F43.10 Post-tr aumatic stress disorde r, unspeci Morro Ortega 07/26 [facility] [facility] MTMS BY PHARM ADDL 15 MIN [id number] [id number] Diagnos is: ICD-10- CM F43.10 Post-tr aumatic stress disorde r, unspeci Morro Ortega LESLIE J 09/20 [place] [facility] Outpatient Encounter [id number] 09/22 [facility] Social History Combined list of available smoking, tobacco, and other social history from Department of Defense and Veterans Affairs facilities. Social History Type Response Date Comment Sourc e Tobacco smoking status NHIS VA-TOBACCO NEVER USED OTHER TYPE 06/02/2024 [facility] History of tobacco use VA-TOBACCO USE EVERY DAY CIGARETTES 06/02/2024 [facility] History of tobacco use VA-TOBACCO DOESNT USE WI 30 MIN WAKEUP 06/14/2023 [facility] History of tobacco use VA-TOBACCO DOESNT USE WI 30 MIN WAKEUP 05/01/2022 [facility] History of tobacco use VA-TOBACCO USER EVERY DAY 05/09/2021 [facility] History of tobacco use VA-TOBACCO DOESNT USE WI 30 MIN WAKEUP 04/02/2020 [facility] History of tobacco use VA-TOBACCO USER EVERY DAY 09/14/2018 [facility] History of tobacco use VA-TOBACCO DOESNT USE WI 30 MIN WAKEUP 09/10/2017 [facility] History of tobacco use SMOKING CESSATION NO 09/06/2017 [facility] History of tobacco use CURRENT TOBACCO USER 08/12/2016 [facility] History of tobacco use CURRENT TOBACCO USER 07/23/2015 [facility] History of tobacco use TOBACCO CURRENT USER 06/12/2015 1/2 pack a day [facility] History of tobacco use CURRENT TOBACCO USER 03/27/2014 [facility] History of tobacco use CURRENT TOBACCO USER 04/24/2013 [facility] History of tobacco use CURRENT TOBACCO USER 05/05/2012 [facility] History of tobacco use SMOKING MEDICATION INTEREST 04/23/2011 [facility] History of tobacco use SMOKING MEDICATION INTEREST 03/31/2010 Dr Óscar [facility] History of tobacco use SMOKING MEDICATION INTEREST 06/10/2009 Dr. Prince [facility] History of tobacco use CURRENT TOBACCO USER 08/07/2008 [facility] History of tobacco use CURRENT TOBACCO USER 05/18/2008 [facility] Plan of Care List of future care activities from [facility] facilities. Additional future care activities may be listed in the Assessment and Plan section. Date/Time Care Activity Care Activity Detail Facili ty 10/12/2024 AMBULATORY - MEDICINE AMBULATORY - [facility]IC[facility] Advance Directives List of completed, amended, or rescinded Advance Directives on record at Department of [facility] Affairs facilities. An actual copy of the Directive is not included. Date Advance Directive Provider Source 05/03/2019 ADVANCE DIRECTIVE DISCUSSION DEN DE LUNA [facility] 12/28/2012 ADVANCE DIRECTIVE KYRACRISTI MACKENZIE [facility] 12/28/2012 ADVANCE DIRECTIVE DISCUSSION VIDAL RAE [facility] 12/28/2012 RESCINDED ADVANCE DIRECTIVE DONALD RAE [facility] 06/18/2009 ADVANCE DIRECTIVE DISCUSSION [facility]
--- OUTSIDE RECORDS SUMMARY | 2024-10-05 12:12 | XMS_ITS | Clinical Summary ---
Author Organization [facility] Address [address] [place] [address], [address] [place] [address] Care Team Providers Care Senior Design Engineering Specialist Name Role Phone Unavailable Primary Care Provider Unavailabl e Social History Tobacco Use Types Packs/Day Years Used Date Smoking Tobacco: Never Assessed Sex and Gender Information Value Date Recorded Sex Assigned at Not on file Legal Sex Male 3:17 PM EST Gender Identity Not on file Sexual Orientation Not on file Plan of Treatment Not on file
--- OUTSIDE RECORDS SUMMARY | 2024-10-05 12:14 | XMS_ITS | Encounter Summary ---
Author Organization [facility] Address [address] [place] [address] Care Team Providers Care Gin Clerk Name Role Phone Sue Machado PIPE RACKER-[place]ari[place] Primary Care Provider [phone] Encounter Details Date Type Department Care Team (Late st Contact Info) Description 09/27/2024 Telephone [facility] [address] [place] [address] Kylah Doyle MA Social History Tobacco Use Types Packs/Day Years Used Date Smoking Tobacco: Every Day Cigarettes Smokeless Tobacco: Never Alcohol Use Standard Drinks/Week Comments Not Currently 0 (1 standard drink = 0.6 oz pur e alcohol) [place] Safety & Environment Answer Date Rec orded Fear of Current or Ex-Partner Not on file Emotionally Abused Not on file 04/08/2023 Physically Abused Not on file 04/08/2023 Sexually Abused Not on file 04/08/2023 Physically or Sexually Abused Not on file Sex and Gender Information Value Date Recorded Sex Assigned at Male 08/08/2024 6:33 PM EDT Legal Sex Male 9:43 PM EDT Gender Identity Male 08/08/2024 6:33 PM EDT Sexual Orientation Heterosexual or Straight 07/17 6:33 PM EDT documented as of this encounter Miscellaneous Notes * Telephone Encounter - Kylah Doyle MA - 09/27/2024 5:09 PM EDT Images from the original note were not included. Regarding carotid US from 09/12/2024: Thania Cabral MD to Me (Selected Message) EE 09/20/24 9:48 AM Please let him know he has a significant blockage per ultrasound, and I recommend a CTA of the carotids to confirm or refute Thanks documented in this encounter Plan of Treatment Upcoming Encounters Date Type Department Care Team (Late st Contact Info) Description 12/04/2024 1:30 PM EDT Office Visit [facility] [address] [place] [id number] Thania Cabral MD [address] [facility] [address] [facility] [place] [address] documented as of this encounter Visit Diagnoses Not on filedocumented in this encounter Care Teams Gin Clerk Relationship Specialty Start Date End Date Sue Machado FNP-C [address] [place] [address] PCP - General Nurse Practitioner 08/14/24 documented as of this encounter
--- OUTSIDE RECORDS SUMMARY | 2024-10-05 12:14 | XMS_ITS | Clinical Summary ---
Author Organization [facility] Healthcare Address [address] [place] [address] Care Team Providers Care Product Safety Tester Name Role Phone Unavailable Primary Care Provider Unavailabl e Social History Tobacco Use Types Packs/Day Years Used Date Smoking Tobacco: Never Assessed Sex and Gender Information Value Date Recorded Sex Assigned at Not on file Legal Sex Male 7:34 PM EDT Gender Identity Not on file Sexual Orientation Not on file Plan of Treatment Not on file
--- OUTSIDE RECORDS SUMMARY | 2024-10-05 12:14 | XMS_ITS | Clinical Summary ---
Author Organization [facility] Address [address] [place] [address] Care Team Providers Care Clock Assembler Name Role Phone Sue Machado JOB HAND-Mariola Primary Care Provider [phone] Allergies No known active allergies Medications aspirin 81 mg EC tablet Take 81 mg by mouth in the morning. Active apixaban (Eliquis) 5 mg tablet Take 5 mg by mouth in the morning and at bedtime. Active isosorbide mononitrate ER (Imdur) 120 mg 24 hr tablet Take 120 mg by mouth in the morning. Do not crush or chew. Active metFORMIN (Glucophage) 500 mg tablet Take 500 mg by mouth with breakfast. Active metoprolol tartrate (Lopressor) 25 mg tablet Take 25 mg by mouth in the morning and at bedtime. Active mirtazapine (Remeron) 15 mg tablet Take 15 mg by mouth at bedtime. Active ranolazine (Ranexa) 500 mg 12 hr tablet Take 500 mg by mouth in the morning and at bedtime. Do not crush, chew, or split. Active rosuvastatin (Crestor) 40 mg tablet Take 40 mg by mouth in the morning. Active lisinopril 5 mg tablet Take 5 mg by mouth in the morning. Active dapagliflozin propanediol (Farxiga) 10 mg Take 10 mg by mouth in the morning. 03/07/2024 Active spironolactone (Aldactone) 25 mg tablet Take 25 mg by mouth in the morning. 03/07/2024 Active pantoprazole (ProtoNix) 20 mg EC tablet Take 20 mg by mouth before breakfast. 02/02/2024 Active amitriptyline (Elavil) 25 mg tablet Take 25 mg by mouth if needed each day. 05/11/2023 Active sertraline (Zoloft) 50 mg tablet Take 50 mg by mouth in the morning. 08/18/2023 Active tamsulosin (Flomax) 0.4 mg 24 hr capsule Take 0.4 mg by mouth in the morning. Active nitroglycerin (Nitrostat) 0.[address] 0.4 mg under the tongue if needed each day. 08/20/2023 Active furosemide (Lasix) 40 mg tabletIndication s:Chronic diastolic heart failure (CMS/HCC) Take 1 tablet (40 mg) by mouth in the morning. 90 tablet 3 08/15/2024 Active Active Problems Problem Noted Date Diagnosed Date Flash pulmonary edema 08/03/2024 Hypoxic respiratory failure 08/03/2024 Dizziness and giddiness 07/13/2024 Nail disorder, unspecified 07/13/2024 Abnormal findings on diagnostic imaging of lung 03/13/2024 Overview (03/13/2024): Aug 01, 2020 Entered By: MAXINE SALDAÑA Comment: CT 04/2020.Repeat in 07/2020-->findings stable. 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 0 03/13/2024 Major depressive disorder, recurrent, mild 03/13 Nicotine dependence, cigarettes, uncomplicated 0 03/13/2024 Obstructive sleep apnea of adult 03/13/2024 Personal history of noncompl iance with medical treatment, presenting hazards to health 03/13/2024 Post-traumatic stress disorder, unspecified 02/16 Pulmonary asbestosis 03/13/2024 Sensorineural hearing loss (SNHL) of both ears 0 03/13/2024 Transient ischemic attack 03/13/2024 Type 2 diabetes mellitus without complications 0 03/13/2024 Vitamin D deficiency 03/13/2024 Chronic diastolic congestive heart failure 03/01 Tobacco abuse 03/01/2024 Asthma 09/29/2021 A-fib 09/29/2021 CAD (coronary artery disease) 09/29/2021 Essential hypertension 09/29/2021 Hyperlipidemia 09/29/2021 Pneumonia 09/29/2021 Type 1 diabetes 09/29/2021 Encounters Date Type Department Care Team Description 10/02/[address] [facility] [address] [facility] [place] [address] Rosemary Calvin MA Bilateral carotid artery stenosis (Primary Dx) 09/27/[address] [facility] [address] [facility] [place] [address] Kylah Doyle MA 09/19/[address] [facility] [address] [facility] [place] [address] ProviderShawn MD 09/13/[address] [facility] [address] [facility] [place] [address] ProviderShawn MD 08/15/2024 2:40 PM EDT Office Visit [facility] [address] [facility] [place] [address] Cecilia Guzmán CNP Chronic diastolic heart failure (CMS/HCC) (Primary Dx); Carotid stenosis, asymptomatic, bilateral 07/13/2024 11:30 AM EDT Office Visit [facility] [address] [facility] [place] [address] Thania Cabral MD Claudication (Primary Dx); Coronary artery disease involving robinson coronary artery of robinson heart without angina pectoris; Cardiovascular stress test abnormal from Last 3 Months Family History Medical History Relation Name Comments CABG Brother Coronary artery disease Brother Relation Name Status Comments Brother Father Mother Social History Tobacco Use Types Packs/Day Years Used Date Smoking Tobacco: Every Day Cigarettes Smokeless Tobacco: Never Tobacco Cessation:Ready to Q uit: Not Asked; Counseling Given: Not Answered Alcohol Use Standard Drinks/Week Comments Not Currently [...] Heterosexual or Straight 07/17 6:33 PM EDT Last Filed Vital Signs Vital Sign Reading Time Taken Comments Blood Pressure 119/44 08/15/2024 2:33 PM EDT Pulse 68 08/15/2024 2:33 PM EDT Temperature - - Respiratory Rate - - Oxygen Saturation 95% 08/15/2024 2:33 PM EDT Inhaled Oxygen Concentration - - Weight 69.4 kg (153 lb) 08/15/2024 2:33 PM EDT Height 170.2 cm (5' 7 ) 08/15/2024 2:33 PM EDT Body Mass Index 23.96 08/15/2024 2:33 PM EDT Plan of Treatment Upcoming Encounters Date Type Department Care Team (Late st Contact Info) Description 12/04/2024 1:30 PM EDT Office Visit [facility] [address] [place] [address] Thania Cabral MD [address] [facility] [place] [address] Health Maintenance Due Date Last Done Comments Diabetes: Hemoglobin A1C 1945 Medicare Annual Wellness (AWV) 1945 Diabetes: Retinopathy Screening 1956 Depression Screening 1958 Diabetes: Urine Protein Screening 1965 Fall Risk Screening 07/17/2011 COVID-19 Vaccine ( season) 2024 12/14/2023, 12/29/2022, 12/23/2021, Additional history exists Influenza Vaccine (#1) 2024 , 11/12/2022, 11/10/2021, Additional history exists Adult Tetanus 05/12/2032 05/12/2022 Pneumococcal Vaccine: 50+ Years Completed 02/12/2016, 11/06/2014, 09/09/2009 Zoster Vaccines Completed 05/09/2021, 10/30/2020 HIB Vaccines Aged Out No longer eligi ble based on patient's age to complete this topic HPV Vaccines Aged Out No longer eligi ble based on patient's age to complete this topic IPV Vaccines Aged Out No longer eligi ble based on patient's age to complete this topic Meningococcal B Vaccine Aged Out No l onger eligible based on patient's age to complete this topic Meningococcal Vaccine Aged Out No bautista adam eligible based on patient's age to complete this topic Rotavirus Vaccines Aged Out No longer eligible based on patient's age to complete this topic Procedures Procedure Name Priority Date/Time Associated Diagnosis Comments VASC US CAROTID ARTERY DUPLEX BILATERAL Routine 09/12/2024 1:41 PM EDT VASC ANKLE BRACHIAL INDEX (DANA) WITHOUT EXERCISE Routine 09/12/2024 8:42 AM EDT from Last 3 Months Results * Vascular US carotid artery duplex bilateral (09/12/2024 1:41 PM EDT) Anatomical Region Laterality Modality Neck Ultrasound Historical Provider MD CAMPOS CV VASCULAR PROCEDURE S Final Result * Vascular US ankle brachial index (DANA) without exercise (09/12/2024 8:42 AM EDT) Anatomical Region Laterality Modality Lower Extremities Ultrasound Historical Provider MD CAMPOS CV VASCULAR PROCEDURE S Final Result from Last 3 Months Insurance MEDICARE Care Teams Clock Assembler Relationship Specialty Start Date End Date Sue Machado FNP-C [address] [place] [address] PCP - General Nurse Practitioner 08/14/24
--- OUTSIDE RECORDS SUMMARY | 2024-10-05 12:14 | XMS_ITS | Encounter Summary ---
Author Organization [facility] Address [address] [place] [address] Care Team Providers Care Hogshead Hand Name Role Phone JeannetteLesleedi LINEN ATTENDANT-Mariola Primary Care Provider [phone] Encounter Details Date Type Department Care Team (Late st Contact Info) Description 09/19/2024 Orders Only [facility] [address] [place] [address] Provider, MD Shawn [address] [place], [place] [id number] Social History Tobacco Use Types Packs/Day Years [...] PM EDT documented as of this encounter Plan of Treatment Upcoming Encounters Date Type Department Care Team (Late st Contact Info) Description 12/04/2024 1:30 PM EDT Office Visit [facility] [address] [place] [phone] Thania Cabral MD [address] [facility] [place] [address] documented as of this encounter Procedures Procedure Name Priority Date/Time Associated Diagnosis Comments VASC US CAROTID ARTERY DUPLEX BILATERAL Routine 09/12/2024 1:41 PM EDT documented in this encounter Results * Vascular US carotid artery duplex bilateral (09/12/2024 1:41 PM EDT) Anatomical Region Laterality Modality Neck Ultrasound us Historical Provider MD CAMPOS CV VASCULAR PROCEDURE S Final Result documented in this encounter Visit Diagnoses Not on filedocumented in this encounter Care Teams Hogshead Hand Relationship Specialty Start Date End Date Sue Machado FNP-C [address] [place] [address] PCP - General Nurse Practitioner 08/14/24 documented as of this encounter
--- OUTSIDE RECORDS SUMMARY | 2024-10-05 12:14 | XMS_ITS | Encounter Summary ---
Author Organization [facility] Address [address] [place] [address] Care Team Providers Care Paint Department Supervisor Name Role Phone Sue Machado-Mariola Primary Care Provider [phone] Reason for Referral * Imaging (Routine) - Pending Review Specialty Diagnoses / Procedures Referred By Conttirso t Referred To Contact Radiology Diagnoses Bilateral carotid artery stenosis Procedures CTA Neck W IV Contrast Thania Cabral MD [address] [facility] [address] [facility] [place] [address] Phone: tel: fax: Referral ID Status Reason Start Date Expiration Date V isits Requested Visits Authorized [id number] Pending Review 10/02/2024 10/02/2025 1 1 Encounter Details Date Type Department Care Team (Late st Contact Info) Description 10/02/2024 Orders Only [facility] at [facility] [address] [place] [phone] Rosemary Calvin MA Bilateral carotid artery stenosis (Primary Dx) Social History Tobacco Use Types Packs/Day Years [...] Description 12/04/2024 1:30 PM EDT Office Visit [facility] [address] [place] [address] Thania Cabral MD [address] [facility] [place] [address] Scheduled Orders Name Type Priority Associated Diagnoses Orde r Schedule CTA Neck W IV Contrast Imaging Routine Bilateral carotid artery stenosis Expected: 10/02/2024, Expires: 10/02/2025 Creatinine, Serum Lab Routine Bilateral carotid artery stenosis Expected: 10/02/2024 (Approximate), Expires: 10/02/2025 documented as of this encounter Visit Diagnoses Diagnosis Bilateral carotid artery stenosis- Primary Occlusion and stenosis of carotid artery without mention of cerebral infarction documented in this encounter Care Teams Paint Department Supervisor Relationship Specialty Start Date End Date Sue Machado FNP-C [address] [place] [address] PCP - General Nurse Practitioner 08/14/24 documented as of this encounter
--- OUTSIDE RECORDS SUMMARY | 2024-10-05 12:15 | XMS_ITS | Clinical Summary ---
Author Organization [facility] Address [address] [place] [address] Care Team Providers Care Cardiovascular Invasive Specialist Name Role Phone Unavailable Primary Care Provider Unavailabl e Allergies No known active allergies Medications Aspirin 81 mg ORAL CpDR Take by mouth. Active folic acid 400 mcg ORAL tablet Take 400 mcg by mouth once daily. Active Fish Oil-DHA-EPA (FISH OIL) 1,200-144-216 mg ORAL Cap Take by mouth. Active paroxetine 30 mg ORAL tablet Take 30 mg by mouth once daily. Active FENOFIBRATE NANOCRYSTALLIZED (TRICOR ORAL) Take by mouth. Active clopidogrel (PLAVIX) 75 mg ORAL tablet Take 75 mg by mouth once daily. Active amLODIPine 10 mg ORAL tablet Take 10 mg by mouth once daily. Active metoprolol succinate XL, long acting, 50 mg ORAL 24 hr tablet Take 50 mg by mouth once daily. Active dronedarone (MULTAQ) 400 mg ORAL Tab Take 400 mg by mouth twice daily with meals. Active rosuvastatin (CRESTOR) 40 mg ORAL tablet Take 40 mg by mouth once daily. Active warfarin (COUMADIN) 5 mg ORAL tablet Take 5 mg by mouth once daily. Active loratadine-pseudoeph edrine 24hr 10-240 mg (LORATADINE-D) 10-240 mg ORAL Tb24 Take 1 tablet by mouth once daily. Active lisinopril 20 mg ORAL tablet Take 20 mg by mouth once daily. Active pantoprazole 40 mg ORAL tablet Take 40 mg by mouth once daily. Active Melatonin 5 mg ORAL Cap Take by mouth. Active Diphenhydramine HCl 50 mg ORAL tablet Take 50 mg by mouth at bedtime as needed. Active nitroglycerin sublingual 0.4 mg SUBLINGUAL SL tablet Dissolve 0.4 mg under the tongue every 5 minutes as needed. Active dabigatran etexilate (PRADAXA) 150 mg ORAL Cap Take by mouth twice daily. Active Social History Tobacco Use Types Packs/Day Years Used Date Smoking Tobacco: Never Assessed Sex and Gender Information Value Date Recorded Sex Assigned at Not on file Legal Sex Male 9:35 AM EST Gender Identity Not on file Sexual Orientation Not on file Plan of Treatment Health Maintenance Due Date Last Done Comments Anxiety Screening 1964 Depression Screening 1964 Hepatitis C Screening 1963 DTaP,Tdap,Td Vaccine (1 - Tdap) 1965 Diabetes Screening 07/17/1991 Pneumococcal Vaccine: 50+ (1 of 1 - PCV) 1996 Shingrix Vaccine (1 of 2) 1996 RSV Vaccine (1 - 1-dose 75+ series) 2021 Advance Directive Discussion 02/16/2024 Influenza Vaccine (#1) 2024 Insurance Member Subscriber Plan / Payer (Ef fective 2005-Present) Name:Waldo Maravilla Member ID:[id number] Relation to Subscriber:Self Name:Waldo Maravilla Subscriber ID:[id number] Payer ID:Not on file Group ID:Not on file Type:Medicare [address]
[2024-10-05 12:32] LABS: Estimated GFR (African America >60 (>=60 mL/min/1.73m^2); Estimated GFR (Non-African Ame >60 (>=60 mL/min/1.73m^2)
== END 2024-10-05 12:11 | disposition home or self-care (01) ==
LOC: LAB 12:11
PROVIDERS: Visit Provider Internal Medicine Interventional Cardiology
DX: I65.23 Occlusion and stenosis of bilateral carotid arteries (principal)
CPT/HCPCS: 36415; 70498; 82565; Q9967

== ENCOUNTER 2024-10-12 14:33 | Inpatient (IN) | payer OTHER, SELFPAY ==
[2024-10-12] VITALS (18 sets, daily range): BP systolic 120–156; BP diastolic 48–92; PULSE 77–94; TEMP 36.9–37; O2SAT 85–97; BMI 23.5; BMI 24.2
--- OUTSIDE RECORDS SUMMARY | 2024-10-12 06:30 | XMS_ITS | Encounter Summary ---
Author Name [facility] Organization [facility] of [facility] [place] Address [address] [place] [address] Care Team Providers Care Duck Operator Name Role Phone DIANNE GRIFFINCA Primary Care [...] N PLAN N Oct 16, 2012 MEDIGAP [id number] [phone] Fabian MCPHERSON PATIENT AARP MED SUPP [facility] Feb 15, 2022 PLANN [id number] Fabian MCPHERSON PATIENT AARP MED SUPP MEDIGAP PLAN N PLAN N Oct 16, 2012 PLAN N [id number] Fabian MCPHERSON PATIENT MEDICARE (WNR) MEDICARE (M) PART A May 16, 2005 PART A [id number] Fabian MCPHERSONS PATIENT MEDICARE (WNR) MEDICARE (M) PART B May 16, 2005 PART B [id number] Fabian MCPHERSON PATIENT MEDICARE (WNR) MEDICARE (M) PART A May 16, 2005 PART A [id number] [phone] Fabian MCPHERSON PATIENT MEDICARE (WNR) MEDICARE (M) PART B May 16, 2005 PART B [id number] Fabian MCPHERSON PATIENT MEDICARE (WNR) MEDICARE (M) PART A May 16, 2005 PART A [id number] Fabian MCPHERSON PATIENT MEDICARE (WNR) MEDICARE (M) PART B May 16, 2005 PART B [id number] [phone] Fabian MCPHERSON PATIENT MEDICARE PART D (WNR) PRESCRIPT ION PART D Feb 15, 2010 PART D [id number] [phone] Fabian MCPHERSON PATIENT Selected Encounter This section includes the information on record at [place] for the Encounter. Date/Time Encounter Type Encounter Description Reason Provider Source Oct 12, 2024 10:30 AM OFFICE O/P EST MOD 30 MIN CARDIOLOGY ICD-10-CM I50.32 Chronic diastolic [facility]congestive) heart failure [facility] Encounter Template Text not used by [place] Assessments - Encounter Diagnoses This section includes the primary and secondary diagnoses documented for the Encounter. Date/Time Primary/Secondary Diagnosis Diagnosis Name Provider Source Oct 12, 2024 10:54 AM PRIMARY Chronic diastolic (congestive) heart [facility] Oct 12, 2024 10:54 AM SECONDARY Chronic ischemic heart disease, unspecified [facility] Oct 12, 2024 10:54 AM SECONDARY Essential (primary) hypertension [facility] Oct 12, 2024 10:54 AM SECONDARY Hyperlipidemia, unspecified [facility] Oct 12, 2024 10:54 AM SECONDARY Hypokalemia [facility] Oct 12, 2024 10:54 AM SECONDARY Paroxysmal atrial fibrillation [facility] Oct 12, 2024 10:54 AM SECONDARY Tobacco use [facility] Oct 12, 2024 10:54 AM SECONDARY Type 2 diabetes mellitus without complications [facility] Plan of Treatment: Future Appointments (+ 6 months) and Future Tests (+/- 45 days) The Plan of Treatment section includes future care activities for the patient from all [facility]. This section includes future appointments and future orders which are active, pending or scheduled. Future Appointments This section includes appointments that were scheduled to occur 6 months from the date of the Encounter, up to a maximum of 20 appointments. The data comes from all [facility]. Appointment Date/Time Appointment Type Appointme nt Facility Name Oct 19, 2024 03:00 PM AMBULATORY - SURGERY [facility] Nov 15, 2024 11:00 AM AMBULATORY - PSYCHIATRY [facility] Nov 29, 2024 11:00 AM AMBULATORY - NONE [facility] Dec 20, 2024 10:30 AM AMBULATORY - NONE [facility] Dec 27, 2024 10:30 AM AMBULATORY - NONE [facility] Active, Pending, and Scheduled Orders This section includes a listing of several types of active, pending, and scheduled orders, including clinic medications orders, diagnostic test orders, procedure orders and consult orders; where the start date of the order is 45 days before the date of the Encounter or 45 days after the date of theEncounter. The data comes from all [facility]. Test Date/Time Test Type Test Details Facility Name Oct 12, 2024 10:58 AM Pharmacy - Clinic Medication Order [facility] Oct 12, 2024 10:58 AM Procedure Order ECHO TRANS THORACIC CP ECHOCARDIOGRAM FC Proc Meeting/Event Planner's Choice [facility] Lab Results: +/- 30 days of [...] Unit Interpretation Reference Range Specimen Type Comment Oct 12, 2024 11:18 AM [facility] B-TYPE NATRIURETIC PEPTIDE PLASMA Specimen Typ e: PLASMA No comment entered. Ordering Provider: CLARE GEORGE Report Released Date/Time: Oct 12, 2024 10:58 AM Reporting Lab: [facility] [id number] [facility] [address] Performing Lab: [facility] [id number] [place] [id number] B-TYPE NATRIURETIC PEPTIDE 612.0 pg/mL H 0 .0-135.0 Oct 12, 2024 11:18 AM [facility] MAGNESIUM PLASMA Specimen Type: P LASMA Comment: GLUCOSE The ADA recommends a fasting glucose of 99 mg/dL as the GLUCOSE upper limit of normal. TP Per package insert reference range for recumbent is 6.0 to 7.8 TP g/dL. Plasma samples will generally have higher values (about TP 0.2 to 0.4 g/dL higher) due to presence of fibrinogen. Ordering Provider: TYRON GEORGE Report Released Date/Time: Oct 12, 2024 10:58 AM Reporting Lab: [address] [address] Performing Lab: [place] [id number] MAGNESIUM 1.7 mg/dL 1.6-2.6 Oct 12, 2024 11:18 AM [facility] COMPREHENSIVE METABOLIC PANEL PLASMA S pecimen Type: PLASMA Comment: GLUCOSE The ADA recommends a fasting glucose of 99 mg/dL as the GLUCOSE upper limit of normal. TP Per package insert reference range for recumbent is 6.0 to 7.8 TP g/dL. Plasma samples will generally have higher values (about TP 0.2 to 0.4 g/dL higher) due to presence of fibrinogen. POTASSIUM Critical POTASSIUM POTASSIUM DR. DELGADO notified of Critical Value at 13:12 10/12/24, POTASSIUM READ-BACK HAS BEEN PERFORMED[facility] Ordering Provider: TYRON GEORGE Report Released Date/Time: Oct 12, 2024 10:58 AM Reporting Lab: [address] [address] Performing Lab: [address] [address] ALBUMIN 3.7 g/dL 3.5-4.8 ALKALINE PHOSPHATASE 91 U/L 40-150 ALT/SGPT 8 U/L 0-55 AST/SGOT 16 U/L 10-40 BUN 6.6 mg/dL L 8.4-25.7 CALCIUM 8.8 mg/dL 8.6-10.3 CREATININE 1.0 mg/dL 0.7-1.3 CO2 32 mmol/L H 22-30 GLUCOSE 125 mg/dL H 74-99 PROTEIN, TOTAL 6.8 g/dL 6.4-8.3 SODIUM 143 mmol/L 134-144 CHLORIDE 103 mmol/L 99-112 BILIRUBIN, TOTAL 0.5 mg/dL 0.2-1.2 POTASSIUM 2.1 mmol/L LL 3.5-5.1 ANION GAP 10 mmol/L 10-20 EGFR (CALCULATED) 77 Vital Signs: All taken on the encounter date This section contains inpatient and outpatient Vital Signs collected on the date of the Encounter. Date/Time Temperature Pulse Blood Pressure Respiratory Rate SP02 Pain Height Weight Body Mass Index Source Oct 12, 2024 09:48 AM 97.2 F 75 /min 102/60 mm[Hg] 18 /min 93 % 0 154.9 lb 24 [facility] Social History: Smoking Status (Most current) and Tobacco Use (All prior to encounter date) This section includes the most current, and the historical, smoking and tobacco- related health factors from the [place] facility where the Encounter took place. Current Smoking Status This section includes the most current smoking, or tobacco-related health factor, from the [place] facility where the Encounter took place. Date/Time Current Smoking Status Comment Facil ity Sep 06, 2017 09:21 AM SMOKING CESSATION NO [facility] Tobacco Use History This section includes a history of the smoking, or tobacco-related health factors, that were collected on or before the date of the Encounter. The data comes from the [place] facility where the Encounter took place. Date/Time Smoking Status/Tobacco Use Comment F acility Jun 12, 2015 01:08 PM TOBACCO CURRENT USER 1/2 pack a day [facility] Apr 24, 2013 09:26 AM CURRENT TOBACCO USER [facility] Advance Directives: All historical and current Section Date Range: From patient's date of to the date document was created. This section includes ALL of a patient's completed or amended [place] Advance and Rescinded Directives. The entries below indicate that a directive exists for the patient, but an actual copy is not included with this document. The data comes from all [place] facilities. Date Advance Directives Provider Source May 03, 2019 ADVANCE DIRECTIVE DISCUSSION DEN DE LUNA [facility] Dec 28, 2012 ADVANCE DIRECTIVE CRISTI RAE [facility] Dec 28, 2012 ADVANCE DIRECTIVE DISCUSSION VIDAL RAE [facility] Dec 28, 2012 RESCINDED ADVANCE DIRECTIVE DONALD RAE [facility] June 18, 2009 ADVANCE DIRECTIVE DISCUSSION FERNY PASTRANA [facility] Encounter Notes: All associated encounter notes This section contains the clinical notes associated to the Encounter. Date/Time Encounter Note(s) Provider Source Oct 12, 2024 01:56 PM ADDENDUM: LOCAL TITLE: Addendum STANDARD TITLE: ADDENDUM DATE OF NOTE: OCT 12, 2024@13:56:48 ENTRY DATE: OCT 12, 2024@13:56:49 AUTHOR: TYRON GEORGE COSIGNER: URGENCY: STATUS: COMPLETED potasium level very low secure message discussion w/ [facility] and plan is to rec pt to go to closest ER for treatment. He should be given a form of KCL he is able to swallow as he cringed when i mentioned potassium supplement /es/ TYRON GEORGE NURSE PRACTITIONER Signed: 10/12/2024 13:58 Receipt Acknowledged By: 10/12/2024 14:29 /es/ LAURA GRIFFIN NURSE PRACTITIONER --- Original Document --- 10/12/24 CARDIOLOGY OUTPATIENT CLINIC NOTE (T): SUBJECTIVE - Patient is a 79 year old MALE seen in Cardiology Outpatient Clinic. CHIEF COMPLAINT - see A+P PAST MEDICAL HISTORY - see A-P NOTE: last visit '>tele fellow. rtc 6m NOTE: saw pt 03/10 w/ resident, rtc 13m w/ ECHO - Modifiable risk factor identification: Diabetes mellitus, Dyslipidemia, Nutrition - Allergies: VICRYL SUTURES PATIENT ALLERGIES DETAILED ALLERGIES/ADVERSE REACTIONS Type: OTHER Date/Time Reactant Severity Reaction 05/18/2008 14:35 VICRYL SUTURES UNKNOWN AMRS - MEDS (REC SUCCINCT) Active and Recently Inpatient, Outpatient and Clinic Medications (including Supplies): Active Outpatient Medications Status 1) AMITRIPTYLINE HCL 25MG TAB TAKE ONE TO TWO TABLET(S) ACTIVE BY MOUTH AT BEDTIME NEEDED FOR SLEEP 2) APIXABAN 5MG TAB TAKE ONE TABLET BY MOUTH TWICE A DAY ACTIVE DIRECTED BY THE [facility] ([phone] EXT. [phone]) 3) ASPIRIN 81MG EC TAB TAKE ONE TABLET BY MOUTH EVERY ACTIVE DAY (WITH FOOD) 4) EMPAGLIFLOZIN 25MG TAB TAKE ONE TABLET BY MOUTH EVERY ACTIVE (S) MORNING FOR HEART FAILURE 5) FUROSEMIDE 40MG TAB TAKE ONE TABLET BY MOUTH EVERY ACTIVE DAY FOR EDEMA 6) ISOSORBIDE MONONITRATE 120MG SA TAB TAKE ONE TABLET ACTIVE BY MOUTH TWICE A DAY 7) LISINOPRIL [...] ACTIVE BEDTIME Inactive Outpatient Medications Status 1) CARBAMIDE PEROXIDE 6.5% OTIC SOLN INSTILL 5 DROPS IN AFFECTED EAR(S) TWICE A DAY FOR 4 DAYS FOR EAR WAX BLOCKAGE FOR UP TO 4 DAYS; PYXIS RX 2) NITROGLYCERIN 0.4MG SL TAB DISSOLVE ONE TABLET UNDER THE TONGUE NEEDED FOR ACUTE ATTACK OF ANGINA FOR CHEST PAIN; IF CHEST PAIN IS NOT IMPROVED 5 MINUTES AFTER TAKING 1 TABLET, CALL 911 DISPENSE IN ORIGINAL CONTAINER 3) RANOLAZINE 500MG SA TAB TAKE ONE TABLET [...] MOUTH EVERY DAY ACTIVE 23 Total Medications OBJECTIVE Neckno jvd [id number] w/ARLYN 02/20 R2ICS. no AI noted clearly, reg,reg Lungscta Extremitiesno edema Significant laboratory ECG 01/03 SR w/ NS ST/T abn ECG 03/10 SR w/ 1st dg block. ECG today SR with bord 1st deg avb, poor baseline, ST/ T abn ASSESSMENT/PLAN 79 yo with HTN, Dyslipid, DM, TIA, Smoker, dep, CAD CABG (1999 at [facility]) with grafts TURNER-LAD, SVG-PDA, and SVG-LCX, PCI to LM at OSH in 2003 PCI with FORREST to ?artery and PCI to PDA with FORREST in 2010 during inferior [place] Temp PPM placed during inferior [place] (2010) and removed. p. AFib on AC since [place] in 2010; previously on dronedarone (stopped because of diarrhea). CHADS 4. -Treadmill nuclear (2012): no evidence of ischemia, suboptimal study 2/2 low HR Cath 06/19/2015 LM - patent stent LAD - NOODLE MAKER mid vessel, LCX - nondom, small caliber, 70% stenosis at OM1 bifurcation (small vessel) RCA - service delivery director mid SVG-PDA - widely patent, good runoff SVG-LAD - widely patent, good runoff TURNER - not injected, reported as occluded in cath from 2010 In comparison to prior cath descriptions, the distal segment of the rPDA supplied by graft has now occluded, but retrograde runoff is excellent. TTE 10/2016: Left ventricular systolic function is low normal. The left atrium is moderately dilated. There is mild mitral regurgitation. Right ventricular systolic pressure is'37'mm Hg. The inferior vena cava appeared normal and decreased > 50% with respiration A variety of Doppler measurements indicate impaired left ventricular relaxation, which is associated with grade I/IV or mild diastolic dysfunction. TTE 09/2017 from OSH is normal. VISIT 03/10: no CP, infreq p. afib ECHO: 04/11 LVEF 50-55%, nl sz, Severe basal inferior and basal inferolateral hypokinesis. rv nl sz, mild dec fxn, mild mr, mild tr, rvsp 35, mild as, mod ai, mild pr, aor nl, mild to moderate diastolic dysfunction. >entered RTC TODAY: no angina. no palp>reports afib was dyspnea, infreq palp no dyspnea no BP check at home no edema wt stable>150lbs cira DOAC taking imdur bid for many years >non va started. taking ranexa takes lasix daily since admit 03/11 and 08/09 with HF (does not recall his wt [employer], maybe 155-157lbs in 03/11 but thinks his wt [employer] 08/09 is close to wt now potassium? denies, reports dif swallowing LDL 50 lfts ok comp/mag/bnp today will comment rtc 05/10 with ECHO I am the Staff Provider. Medication Reconciliation: Medication Reconciliation report reviewed and discussed with patient/caregiver. VA prescription medications, non-VA prescription medications, OTC and herbal medications prescribed by and specific to this Specialty Clinic were reviewed and discussed with patient/caregiver. Patient/caregiver verifies that the list of medications specific to this clinic is complete and accurate and voices understanding. TOTAL TIME SPENT: Spent 40 minutes in care of this patient today including review of records, exam, and placing orders. Has the patient been diagnosed with Heart Failure? Yes Is the patient taking SGLT2 inhibitors? Yes /nayan/ TYRON GEORGE NURSE PRACTITIONER Signed: 10/12/2024 10:54 TYRON GEORGE [facility] Oct 12, 2024 07:35 AM CARDIOLOGY OUTPATI ENT NOTE: LOCAL TITLE: CARDIOLOGY OUTPATIENT CLINIC NOTE (T) STANDARD TITLE: CARDIOLOGY OUTPATIENT NOTE DATE OF NOTE: OCT 12, 2024@07:35 ENTRY DATE: OCT 12, 2024@07:35:58 AUTHOR: TYRON GEORGE EXP COSIGNER: URGENCY: STATUS: COMPLETED CARDIOLOGY OUTPATIENT CLINIC NOTE (T) Has ADDENDA SUBJECTIVE - Patient is a 79 year old MALE seen in Cardiology Outpatient Clinic. CHIEF COMPLAINT - see A+P PAST MEDICAL HISTORY - see A-P NOTE: last visit '>tele fellow. rtc 6m NOTE: saw pt 03/10 w/ resident, rtc 13m w/ ECHO - Modifiable risk factor identification: Diabetes mellitus, Dyslipidemia, Nutrition - Allergies: VICRYL SUTURES PATIENT ALLERGIES DETAILED ALLERGIES/ADVERSE REACTIONS Type: OTHER Date/Time Reactant Severity Reaction 05/18/2008 14:35 VICRYL SUTURES UNKNOWN AMRS - MEDS (REC SUCCINCT) Active and Recently Inpatient, Outpatient and Clinic Medications (including Supplies): Active Outpatient Medications Status 1) AMITRIPTYLINE HCL 25MG TAB TAKE ONE TO TWO TABLET(S) ACTIVE BY MOUTH AT BEDTIME NEEDED FOR SLEEP 2) APIXABAN 5MG TAB TAKE ONE TABLET BY MOUTH TWICE A DAY ACTIVE DIRECTED BY THE [facility] ([phone] EXT. [phone]) 3) ASPIRIN 81MG EC TAB TAKE ONE TABLET BY MOUTH EVERY ACTIVE DAY (WITH FOOD) 4) EMPAGLIFLOZIN 25MG TAB TAKE ONE TABLET BY MOUTH EVERY ACTIVE (S) MORNING FOR HEART FAILURE 5) FUROSEMIDE 40MG TAB TAKE ONE TABLET BY MOUTH EVERY ACTIVE DAY FOR EDEMA 6) ISOSORBIDE MONONITRATE 120MG SA TAB TAKE ONE TABLET ACTIVE BY MOUTH TWICE A DAY 7) LISINOPRIL [...] ACTIVE BEDTIME Inactive Outpatient Medications Status 1) CARBAMIDE PEROXIDE 6.5% OTIC SOLN INSTILL 5 DROPS IN AFFECTED EAR(S) TWICE A DAY FOR 4 DAYS FOR EAR WAX BLOCKAGE FOR UP TO 4 DAYS; PYXIS RX 2) NITROGLYCERIN 0.4MG SL TAB DISSOLVE ONE TABLET UNDER THE TONGUE NEEDED FOR ACUTE ATTACK OF ANGINA FOR CHEST PAIN; IF CHEST PAIN IS NOT IMPROVED 5 MINUTES AFTER TAKING 1 TABLET, CALL 911 DISPENSE IN ORIGINAL CONTAINER 3) RANOLAZINE 500MG SA TAB TAKE ONE TABLET [...] MOUTH EVERY DAY ACTIVE 23 Total Medications OBJECTIVE Neckno jvd [id number] w/ARLYN 02/20 R2ICS. no AI noted clearly, reg,reg Lungscta Extremitiesno edema Significant laboratory ECG 01/03 SR w/ NS ST/T abn ECG 03/10 SR w/ 1st dg block. ECG today SR with bord 1st deg avb, poor baseline, ST/ T abn ASSESSMENT/PLAN 79 yo with HTN, Dyslipid, DM, TIA, Smoker, dep, CAD CABG (1999 at OSH) with grafts TURNER-LAD, SVG-PDA, and SVG-LCX, PCI to LM at OSH in 2003 PCI with FORREST to ?artery and PCI to PDA with FORREST in 2010 during inferior [place] Temp PPM placed during inferior [place] (2010) and removed. p. AFib on AC since [place] in 2010; previously on dronedarone (stopped because of diarrhea). CHADS 4. -Treadmill nuclear (2012): no evidence of ischemia, suboptimal study 03/19 low HR Cath 06/19/2015 LM - patent stent LAD - NOODLE MAKER mid vessel, LCX - nondom, small caliber, 70% stenosis at OM1 bifurcation (small vessel) RCA - service delivery director mid SVG-PDA - widely patent, good runoff SVG-LAD - widely patent, good runoff TURNER - not injected, reported as occluded in cath from 2010 In comparison to prior cath descriptions, the distal segment of the rPDA supplied by graft has now occluded, but retrograde runoff is excellent. TTE 10/2016: Left ventricular systolic function is low normal. The left atrium is moderately dilated. There is mild mitral regurgitation. Right ventricular systolic pressure is'37'mm Hg. The inferior vena cava appeared normal and decreased > 50% with respiration A variety of Doppler measurements indicate impaired left ventricular relaxation, which is associated with grade I/IV or mild diastolic dysfunction. TTE 09/2017 from OSH is normal. VISIT 03/10: no CP, infreq p. afib ECHO: 04/11 LVEF 50-55%, nl sz, Severe basal inferior and basal inferolateral hypokinesis. rv nl sz, mild dec fxn, mild mr, mild tr, rvsp 35, mild as, mod ai, mild pr, aor nl, mild to moderate diastolic dysfunction. >entered RTC TODAY: no angina. no palp>reports afib was dyspnea, infreq palp no dyspnea no BP check at home no edema wt stable>150lbs cira DOAC taking imdur bid for many years >non va started. taking ranexa takes lasix daily since admit 03/11 and 08/09 with HF (does not recall his wt [employer], maybe 155-157lbs in 03/11 but thinks his wt [employer] 08/09 is close to wt now potassium? denies, reports dif swallowing LDL 50 lfts ok comp/mag/bnp today will comment rtc 05/10 with ECHO I am the Staff Provider. Medication Reconciliation: Medication Reconciliation report reviewed and discussed with patient/caregiver. VA prescription medications, non-VA prescription medications, OTC and herbal medications prescribed by and specific to this Specialty Clinic were reviewed and discussed with patient/caregiver. Patient/caregiver verifies that the list of medications specific to this clinic is complete and accurate and voices understanding. TOTAL TIME SPENT: Spent 40 minutes in care of this patient today including review of records, exam, and placing orders. Has the patient been diagnosed with Heart Failure? Yes Is the patient taking SGLT2 inhibitors? Yes /nayan/ TYRON GEORGE NURSE PRACTITIONER Signed: 10/12/2024 10:54 10/12/2024 ADDENDUM STATUS: COMPLETED potasium level very low secure message discussion w/ [facility] and plan is to rec pt to go to closest ER for treatment. He should be given a form of KCL he is able to swallow as he cringed when i mentioned potassium supplement /nayan/ TYRON GEORGE NURSE PRACTITIONER Signed: 10/12/2024 13:58 Receipt Acknowledged By: 10/12/2024 14:29 /nayan/ LAURA GRIFFIN NURSE PRACTITIONER 10/12/2024 ADDENDUM STATUS: COMPLETED This instructional writer spoke directly to and explained to [place] that his potassium level was low. Instructed Bon[place] that he needed to go to nearest Emergency Room. stated he would go now to [facility]. This instructional writer called to [facility] and spoke to Raeann RN explained Romeo was coming to the ER from home with a critically low potassium level. Face sheet and labs faxed to Raeann at [facility]. As this instructional writer was talking to Raeann Romeo arrived at ER. This instructional writer will f/u with [place]. /nayan/ CASEY FOSTER REGISTERED NURSE Signed: 10/12/2024 14:53 TYRON GEORGE [facility]
--- NOTE | 2024-10-12 15:11 | ED.RECABL1 ---
HPI - Recheck/Abnormal Lab/Rx General Chief Complaint: Recheck/Abnormal Lab/Rx Stated Complaint: ABNORMAL [facility]S [facility] Time Seen by Provider: 10/12/24 14:38 Source: patient Mode of arrival: walk-in Limitations: no limitations History of Present Illness HPI narrative: 79-year-old male presents from the [place] for evaluation of severe hypokalemia (K 1.9) noted on routine labs. Patient is asymptomatic. He denies chest pain, shortness of breath, palpitations, muscle weakness, cramps, body aches, confusion, or altered mentation. He is on Lasix for CHF. Has a history of low K, but does not take his home doses. Related Data Home Medications ?Medication ?Instructions ?Recorded ?Confirmed amitriptyline 25 mg tablet 25 mg PO DAILY PRN sleep 10/12/24 10/12/24 apixaban 5 mg tablet (Eliquis) 5 mg PO BID 10/12/24 10/12/24 aspirin 81 mg capsule 81 mg PO DAILY 10/12/24 10/12/24 empagliflozin 25 mg tablet 25 mg PO DAILY 10/12/24 10/12/24 (Jardiance) isosorbide mononitrate 120 mg 120 mg PO BID 10/12/24 10/12/24 tablet,extended release 24 hr lisinopril 5 mg tablet 5 mg PO DAILY 10/12/24 10/12/24 metformin 500 mg tablet 500 mg PO DAILY 10/12/24 10/12/24 metoprolol tartrate 25 mg tablet 25 mg PO BID 10/12/24 10/12/24 mirtazapine 15 mg tablet 15 mg PO BEDTIME 10/12/24 10/12/24 nicotine 14 mg/24 hr daily 1 patch transdermal DAILY 10/12/24 10/12/24 transdermal patch (Nicoderm CQ) pantoprazole 20 mg tablet,delayed 20 mg PO DAILY 10/12/24 10/12/24 release ranolazine 500 mg tablet,extended 500 mg PO BID 10/12/24 10/12/24 release,12 hr rosuvastatin 40 mg tablet 40 mg PO DAILY 10/12/24 10/12/24 sertraline 50 mg tablet 50 mg PO QDAY 10/12/24 10/12/24 spironolactone 25 mg tablet 25 mg PO DAILY 10/12/24 10/12/24 tamsulosin 0.4 mg capsule 0.4 mg PO BEDTIME 10/12/24 10/12/24 Allergies Allergy/AdvReac Type Severity Reaction Status Date / Time No Known Drug Allergies Allergy Verified 10/12/24 14:44 [facility] Medical History (Updated 10/12/24 @ 21:53 by KARY EAST) Myocardial infarct ?I21.9 - Acute myocardial infarction, unspecified (ICD-10) Hypertension ?I10 - Essential (primary) hypertension (ICD-10) Afib ?I48.91 - Unspecified atrial fibrillation (ICD-10) High cholesterol ?E78.00 - Pure hypercholesterolemia, unspecified (ICD-10) Type 2 diabetes mellitus ?E11.9 - Type 2 diabetes mellitus without complications (ICD-10) Surgical History (Updated 10/12/24 @ 20:01 by Bridget Gotti RN) 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 Smoking status: Current every day smoker Non-prescribed substance use: denies use Previous occupational history: retired Highest level of school completed/degree received: Bachelor's degree Are you now , , , , never or living with a partner: In a typical week, how many times do you talk on the telephone with family, friends, or neighbors: 3 or more times per week How often do you get together with friends or relatives: 3 or more times per week How often do you attend mandaen or anabaptist services: 4 or more times per year Little interest or pleasure in doing things: not at all Feeling down, depressed, or hopeless: not at all Feel stressed/tense/nervous/anxious/difficulty sleeping: not at all Do you think of yourself as: straight/heterosexual Gender Identity: male Exam Narrative Exam Narrative: General: Alert, oriented, well-appearing, in no acute distress. Vital Signs: Stable (insert actual vitals if available). Cardiac: Regular rate and rhythm, no murmurs, rubs, or gallops. Respiratory: Lungs clear to auscultation bilaterally. Normal effort. Abdomen: Soft, nondistended, non-tender. Normal bowel sounds. Neuro: Alert, oriented ?3, no focal deficits. Extremities: No edema, good strength Skin: Warm, dry, no rashes. Constitutional Vital Signs, click to edit/add: Last Vital Signs Temp 98.4 F 10/12/24 21:26 Pulse 80 10/12/24 21:43 Resp 20 10/12/24 21:26 BP 156/66 H 10/12/24 21:26 Pulse Ox 90 L 10/12/24 21:26 O2 Del Method Room Air 10/12/24 21:26 Course Vital Signs Vital signs: Vital Signs Temperature 98.6 F 10/12/24 14:46 Pulse Rate 82 10/12/24 14:46 Respiratory Rate 18 10/12/24 14:46 Blood Pressure 126/48 L 10/12/24 14:46 Pulse Oximetry 97 10/12/24 14:46 Oxygen Delivery Method Room Air 10/12/24 14:46 Temperature 98.4 F 10/12/24 21:26 Pulse Rate 80 10/12/24 21:43 Respiratory Rate 20 10/12/24 21:26 Blood Pressure 156/66 H 10/12/24 21:26 Pulse Oximetry 90 L 10/12/24 21:26 Oxygen Delivery Method Room Air 10/12/24 21:26 MDM - Recheck/Abnormal Lab/Rx MDM Narrative Medical decision making narrative: Patient initially presented with severe hypokalemia (K 1.9) while on Lasix for CHF. He was asymptomatic on arrival, EKG showed nonspecific ST depression likely related to electrolyte abnormalities, and troponin was negative. He received IV and PO potassium supplementation with repeat potassium improving slightly to 2.1. Magnesium was mildly low and repleted PO. Although he initially declined admission and considered leaving AMA, after further discussion of risks and his discussion with his daughter?including arrhythmias, cardiac arrest, and recurrent electrolyte imbalance?he agreed to stay for inpatient monitoring and further potassium replacement. He remains hemodynamically stable without chest pain, shortness of breath, muscle weakness, or altered mentation. Admission arranged for continued management. Medical Records Attestation: I reviewed the patient's medical records. Lab Data Attestation: I reviewed the patient's lab results. Labs: Lab Results 10/12/24 10/12/24 Range/Units 15:25 17:49 WBC 7.1 (4.0-11.0) 10^3/uL RBC 4.63 L (4.70-6.10) 10^6/uL Hgb 10.7 L (14.0-18.0) g/dL Hct 33.0 L (42.0-54.0) % MCV 71.3 L (80.0-94.0) fL MCH 23.1 L (25.9-34.0) pg MCHC 32.4 (29.9-35.2) g/dL RDW 19.7 H (11.0-15.0) % Plt Count 231 (150-450) 10^3/uL MPV 11.4 (9.5-13.5) fL Neut % (Auto) 65.6 (43.0-75.0) % Lymph % (Auto) 19.9 L (20.5-60.0) % [place] % (Auto) 10.9 (1.7-12.0) % Eos % (Auto) 2.6 (0.9-7.0) % Baso % (Auto) 0.6 (0.2-2.0) % Neut # (Auto) 4.6 (1.4-6.5) 10^3/uL Lymph # (Auto) 1.4 (1.2-3.8) 10^3/uL [place] # (Auto) 0.8 (0.3-0.8) 10^3/uL Eos # (Auto) 0.2 (0.0-0.7) 10^3/uL Baso # (Auto) 0.0 (0.0-0.1) 10^3/uL Abs Immat Gran (auto) 0.03 (0.00-0.03) 10^3/uL Imm/Tot Granulo (auto) 0.4 (0.0-0.5) % Sodium 144 145 (136-145) mmol/L Potassium 1.9 L* 2.1 L* (3.5-5.1) mmol/L Chloride 105 107 (98-107) mmol/L Carbon Dioxide 31.0 30.2 (21.0-32.0) mmol/L Anion Gap 9.9 9.9 BUN 6.0 L 6.0 L (7.0-18.0) mg/dL Creatinine 0.97 0.89 (0.70-1.30) mg/dL Est GFR ( Amer) >60 >60 (>=60 mL/min/1.73m^2) Est GFR (Non-Af Amer) >60 >60 (>=60 mL/min/1.73m^2) BUN/Creatinine Ratio 6.2 6.7 Glucose 142 H 114 H (74-106) mg/dL Calcium 8.4 L 8.4 L (8.5-10.1) mg/dL Magnesium 1.7 L 1.7 L (1.8-2.4) mg/dL Troponin I High Sens 41.0 36.3 (4.0-76.1) pg/mL ECG Data Attestation: ?I have reviewed the pertinent ECG results. ECG interpretation date: 10/12/24 ECG interpretation time: 16:01 Ischemic changes: non-specific ST-T wave changes Interpretation: With occasional PVC. ST depression I have reviewed the past medical, family, and social history sections including the medications and allergies listed in the above medical record. This chart has been completed using [employer] Electronically signed by: Jin Pickering PA-C V4 V5 mildly in 1 and aVF. Flattened T waves. No ST elevation. Critical Care Time Critical Care Time Critical Care Time: Yes Total Critical Care Time: 30 Attestation: separate of billable procedures. Time spent with consultations, correction of K, discussing case with family at length, ect. Discharge Plan Discharge Chief Complaint: Recheck/Abnormal Lab/Rx Clinical Impression: Hypokalemia, Hypomagnesemia Patient Disposition: Admitted as Observation Time of Disposition Decision: 20:55 Condition: Good Discharge Date/Time: 10/12/24 20:55
[2024-10-12 15:37] LABS: Hematocrit 33.0 % (42.0-54.0); Hemoglobin 10.7 g/dL (14.0-18.0); Immature Granulocytes Abs Auto 0.03 10^3/uL (0.00-0.03); Immature Granulocytes Pct Auto 0.4 % (0.0-0.5); Lymphocytes Absolute Auto 1.4 10^3/uL (1.2-3.8); Mean Corpuscular HGB Conc 32.4 g/dL (29.9-35.2); Mean Corpuscular Hemoglobin 23.1 pg (25.9-34.0); Mean Corpuscular Volume 71.3 fL (80.0-94.0); Platelet Count 231 10^3/uL (150-450); Red Blood Count 4.63 10^6/uL (4.70-6.10); White Blood Count 7.1 10^3/uL (4.0-11.0)
[2024-10-12 15:45] LABS: Anion Gap 9.9; Blood Urea Nitrogen 6.0 mg/dL (7.0-18.0); Calcium 8.4 mg/dL (8.5-10.1); Carbon Dioxide 31.0 mmol/L (21.0-32.0); Chloride 105 mmol/L (98-107); Estimated GFR (African America >60 (>=60 mL/min/1.73m^2); Estimated GFR (Non-African Ame >60 (>=60 mL/min/1.73m^2); Glucose 142 mg/dL (74-106); Magnesium 1.7 mg/dL (1.8-2.4); Sodium 144 mmol/L (136-145)
[2024-10-12 15:51] LABS: Potassium 1.9 mmol/L (3.5-5.1)
--- NOTE | 2024-10-12 15:53 | ECG_ITS ---
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[id number] Requested By: Order Number: [id number] Reading MD: Fern Fonseca Measurements Intervals [place] Rate: 83 P: 90 MD: 198 QRS: 80 QRSD: 104 T: -59 QT: 406 QTc: 445 Interpretive Statements 1100 Sinus rhythm 1570 with occasional ventricular premature complexes [address] depression, possible subendocardial injury 4364 Twave abnormality, possible anterolateral ischemia 4664 Twave abnormality, possible inferior ischemia 9150 abnormal ECG Compared to ECG 05/05/2022 22:52:47 Possible ischemia now present ST (T wave) deviation still present Electronically Signed On 10-13-2024 13:36:11 EDT by Fern Fonseca
--- OUTSIDE RECORDS SUMMARY | 2024-10-12 16:07 | XMS_ITS | Continuity of Care Document ---
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 It does not include entries that were removed or entered in error. Problem Status Onset Date Problem Type Date of Resolution Comments Source Paroxysmal atrial fibrillation (SNOMED CT 781455380) Active 07/17/19 11 Condition Sep 23, 2010 Entered By: ANNIE DELGADO Comment: Occurred with AMI July 2010. sinus rhythm at [place] f/[facility] Abnormal findings on diagnostic imaging of lung Active Condition Aug 01, 2020 Entered By: ALEKSEY SALDAÑA CIA Comment: CT 04/2020.Repeat in 07/2020-->find ings stable. 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 Condition [facility] Chronic diastolic heart failure Active Condition [facility] Chronic insomnia Active Condition [facility] Coronary atherosclerosis (SNOMED CT 559543687) Active Condition Sep 23, 2010 Entered By: [...] [facility] Diabetic neuropathy Active Condition [facility] Difficulty cutting own toenails Active Condition [facility] Generalized Anxiety Disorder * (ICD-9-CM 300.02) Active Condition [facility] Hyperlipidemia (SNOMED CT 56110543) Active Condition [facility] Hypokalemia Active Condition [facility] Prison (current) use of Anticoagulants (ICD-9-CM V58.61) Active Condition [facility] Noncompliance with Treatment (SNOMED CT 8698606) Active Condition [facility] Obstructive sleep apnea of adult Active Condition [facility] Posttraumatic stress disorder (SNOMED CT 38507366) Active Condition [facility] Pulmonary asbestosis Active Condition [facility] Sensorineural Hearing Loss, Bilateral (ICD-9-CM 389.18) Active Condition [facility] Thoracic aorta abnormality Active Condition May 01, 2020 Entered By: ALEKSEY SALDAÑA CIA Comment: 04/2020 Ectasia of ascending thoracic aorta. Size = 3.9 cm. [facility] Tobacco use (SNOMED CT 396494917) Active Condition [facility] Transient Ischemic Attack Active Condition [facility] Vitamin D Deficiency (SCT 5474682) Active Condition [facility] Callus Inactive Condition 05/01/2020 [facility] Encounter for Therapeutic Drug Monitoring (ICD-9-CM V58.83) Inactive Condition 05/01/2020 [facility] Onychomycosis of toenails Inactive Condition 05/01/2020 [facility] Osteoarthritis Inactive Condition 05/01/2020 [facility] Diagnosis: ICD-10-CM I50.32 Chronic diastolic (congestive) heart failure Active Diagnosis [facility] Diagnosis: ICD-10-CM F43.10 Post-traumatic stress disorder, unspecified Active Diagnosis [facility] Diagnosis: ICD-10-CM E11.42 Type 2 diabetes mellitus with diabetic polyneuropathy Active Diagnosis [facility] Diagnosis: ICD-10-CM R42 Dizziness and giddiness Active Diagnosis [facility] Diagnosis: ICD-10-CM Z51.81 Encounter for therapeutic drug level monitoring Active Diagnosis [facility] Diagnosis: ICD-10-CM L60.9 Nail disorder, unspecified Active Diagnosis [facility] Diagnosis: ICD-10-CM F17.210 Nicotine dependence, cigarettes, uncomplicated Active Diagnosis [facility] Diagnosis: ICD-10-CM E11.9 Type 2 diabetes mellitus without complications Active Diagnosis [facility] Diagnosis: ICD-10-CM N40.1 Benign prostatic hyperplasia with lower urinary tract symp Active Diagnosis [facility] Diagnosis: ICD-10-CM F32.A Depression, unspecified Active Diagnosis [facility] Diagnosis: ICD-10-CM Z12.83 Encounter for screening for malignant neoplasm of skin Active Diagnosis [facility] Diagnosis: ICD-10-CM Z23 Encounter for immunization Active Diagnosis [facility] Diagnosis: ICD-10-CM E11.40 Type 2 diabetes mellitus with diabetic neuropathy, unsp Active Diagnosis [facility] Diagnosis: ICD-10-CM H61.22 Impacted cerumen, left ear Active Diagnosis [facility] Diagnosis: ICD-10-CM L57.0 Actinic keratosis Active Diagnosis [facility] Medications Combined list of outpatient medications [...] BEDTIME NEEDED FOR SLEEP ORAL ACTIVE 06/03/2025 [id number] 5 SAPNA MEREDITH 2024 60 [facility] AMITRIPTYLI NE HCL 25MG TAB TAKE ONE TO TWO TABLET(S ) BY MOUTH AT BEDTIME NEEDED FOR SLEEP ORAL DISCONT INUED 05/11/2024 [id number] 5 SAPNA MEREDITH 2023 60 [facility] AMLODIPINE BESYLATE 5MG TAB TAKE ONE TABLET BY MOUTH EVERY DAY ORAL DISCONT INUED BY PROVIDE R 12/14/2024 [id number] 5 ASH GRIFFIN ELENA A 2024 90 [facility] AMLODIPINE BESYLATE 5MG TAB TAKE ONE TABLET BY MOUTH EVERY DAY ORAL DISCONT INUED 06/14/2024 [id number] 4 ASH GRIFFIN ELENA A 2023 90 [facility] APIXABAN 5MG TAB TAKE ONE TABLET BY MOUTH TWICE A DAY DIRECTED [facility] [id number]) ORAL ACTIVE 04/06/2025 [id number] 5 Ja GARCIA 20[facility] APIXABAN 5MG TAB TAKE ONE TABLET BY MOUTH TWICE A DAY DIRECTED BY [facility] EXT. [id number]) ORAL DISCONT INUED 06/09/2024 [id number] 5 LAVERNE GREER DEBBIE A 2023 180 [facility] ASPIRIN 81MG TAB,EC TAKE ONE TABLET BY MOUTH EVERY DAY (WITH FOOD) ORAL ACTIVE 12/14/2024 [id number] 5 ELIAS,RE ELENA A 2024 120 [facility] ASPIRIN 81MG TAB,EC TAKE ONE TABLET BY MOUTH EVERY DAY (WITH FOOD) ORAL DISCONT INUED 06/14/2024 [id number] 4 ELIAS,RE ELENA A 2023 120 [facility] CARBAMIDE PEROXIDE 6.5%/GLYCER IN SOLN,OTIC INSTILL 5 DROPS IN AFFECTED EAR(S) TWICE A DAY FOR 4 DAYS FOR EAR WAX BLOCKAGE FOR UP TO 4 DAYS; PYX[facility] RX AURICU LAR (OTIC) 07/21/2024 [id number] 5 ELIAS,RE ELENA A 2024 15 [facility] DIPHENHYDRA MINE HCL 50MG CAP TAKE 1 CAPSULE BY MOUTH AT BEDTIME ORAL ACTIVE JAIRON DELGADO 2010 [facility] EMPAGLIFLOZ IN 25MG TAB TAKE ONE TABLET BY MOUTH EVERY MORNING FOR HEART FAILURE ORAL SUSPEND ED 10/13/2025 [id number] 5 RUSCHICHI RUIZ 2024 90 [facility] EMPAGLIFLOZ IN 25MG TAB TAKE ONE TABLET BY MOUTH EVERY MORNING FOR HEART FAILURE ORAL DISCONT INUED 06/22/2025 [id number] 5 ELIAS,RE ELENA A 2024 90 [facility] EMPAGLIFLOZ IN 25MG TAB TAKE ONE TABLET BY MOUTH EVERY MORNING FOR HEART FAILURE ORAL DISCONT INUED 03/24/2025 [id number] ELIAS,RE ELENA A 2024 90 [facility] FOLIC ACID 1MG TAB TAKE ONE TABLET BY MOUTH EVERY DAY ORAL ACTIVE RICH PAREDES 2010 [facility] FUROSEMIDE 40MG TAB TAKE ONE TABLET BY MOUTH EVERY DAY FOR EDEMA ORAL ACTIVE 09/15/2025 [id number] ELIAS,RE ELENA A 2024 90 [facility] ISOSORBIDE MONONITRATE 120MG TAB,SA TAKE ONE TABLET BY MOUTH TWICE A DAY ORAL ACTIVE 07/28/2025 [id number] 5 ELIAS,RE ELENA A 2024 180 [facility] ISOSORBIDE MONONITRATE 120MG TAB,SA TAKE ONE TABLET BY MOUTH TWICE A DAY ORAL DISCONT INUED 06/14/2024 [id number] 5 ELIAS,RE ELENA A 2023 180 [facility] LISINOPRIL 5MG TAB TAKE ONE TABLET BY MOUTH EVERY DAY ORAL SUSPEND ED 10/13/2025 [id number] 5 [facility]USTERCHICHI [facility] 2024 90 [facility] LISINOPRIL 5MG TAB TAKE ONE TABLET BY MOUTH EVERY DAY ORAL DISCONT INUED 12/14/2024 [id number] 5 ELIAS,RE ELENA A 2024 90 [facility] LISINOPRIL 5MG TAB TAKE ONE TABLET BY MOUTH EVERY DAY ORAL DISCONT INUED 06/14/2024 [id number] ELIAS,RE ELENA A 2023 90 [facility] MELATONIN CAP/TAB TAKE ONE CAP/TAB BY MOUTH AT BEDTIME ORAL ACTIVE JAIRON DELGADO 2010 [facility] METFORMIN HCL 500MG TAB TAKE ONE TABLET BY MOUTH EVERY DAY FOR TYPE 2 DIABETES MELLITUS (WITH FOOD; AVOID ALCOHOL) ORAL ACTIVE 06/22/2025 [id number] 5 ELIAS,RE ELENA A 2024 90 [facility] METFORMIN HCL 500MG TAB TAKE ONE TABLET BY MOUTH EVERY DAY FOR TYPE 2 DIABETES MELLITUS (WITH FOOD; AVOID ALCOHOL) ORAL DISCONT INUED 12/14/2024 [id number] 5 ELIAS,RE ELENA A 2023 90 [facility] METFORMIN HCL 500MG TAB TAKE ONE TABLET BY MOUTH EVERY DAY FOR TYPE 2 DIABETES MELLITUS (AVOID ALCOHOL) ORAL DISCONT INUED 07/30/2024 [id number] ELIAS,RE ELENA A 2023 90 [facility] METOPROLOL TARTRATE 25MG TAB TAKE ONE TABLET BY MOUTH TWICE A DAY ORAL SUSPEND ED 10/13/2025 [id number] 5 RUSTERHOL TZSTEPBLAIR N 2024 180 [facility] METOPROLOL TARTRATE 25MG TAB TAKE ONE TABLET BY MOUTH TWICE A DAY ORAL DISCONT INUED 12/14/2024 [id number] 5 ELIAS,RE ELENA A 2024 180 [facility] METOPROLOL TARTRATE 25MG TAB TAKE ONE TABLET BY MOUTH TWICE A DAY ORAL DISCONT INUED 06/14/2024 [id number] 4 ELIAS,RE ELENA A 2023 180 [facility] MIRTAZAPINE 15MG TAB TAKE ONE TABLET BY MOUTH AT BEDTIME ORAL SUSPEND ED 07/27/2025 [id number] 5 SAPNA MEREDITH 2024 90 [facility] MIRTAZAPINE 15MG TAB TAKE ONE TABLET BY MOUTH AT BEDTIME ORAL DISCONT INUED 07/06/2024 [id number] SAPNA MEREDITH 2023 90 [facility] MULTIVITAMI NS CAP/TAB TAKE 1 TAB/CAP BY MOUTH EVERY DAY ORAL ACTIVE JAIRON DELGADO 2008 [facility] NICOTINE 14MG/24HRS PATCH APPLY 1 PATCH (14MG/24 HR) TO CLEAN DRY SKIN EVERY DAY FOR SMOKING CESSATIO N : APPLY EVERY MORNING, REMOVE AT BEDTIME TRANSD ERMAL ACTIVE 03/23/2025 [id number] SAPNA MEREDITH 2024 28 [facility] NICOTINE 7MG/24HRS PATCH APPLY 1 PATCH (7MG/24H R) TO CLEAN DRY SKIN EVERY DAY FOR SMOKING CESSATIO N : APPLY EVERY MORNING, REMOVE AT BEDTIME TRANSD ERMAL 04/21/2024 [id number] SAPNA MEREDITH 2024 28 [facility] NITROGLYCER IN 0.4MG TAB,SUBLING UAL DISSOLVE ONE TABLET UNDER THE TONGUE NEEDED FOR ACUTE ATTACK OF ANGINA FOR CHEST PAIN; IF CHEST PAIN IS NOT IMPROVED 5 MINUTES AFTER TAKING 1 TABLET, CALL 911 DISPE NSE IN ORIGINAL CONTAINE R SUBLIN BEN 08/20/2024 [id number] 4 ELIAS,RE ELENA A 2023 100 [facility] PANTOPRAZOL E NA 20MG TAB,EC TAKE ONE TABLET BY MOUTH EVERY MORNING, ON AN EMPTY STOMACH ORAL ACTIVE 02/02/2025 [id number] 5 ELIAS,RE ELENA A 2023 90 [facility] PANTOPRAZOL E NA 20MG TAB,EC TAKE ONE TABLET BY MOUTH EVERY MORNING, ON AN EMPTY STOMACH ORAL DISCONT INUED 02/04/2024 [id number] 4 ELIAS,RE ELENA A 2022 90 [facility] RANOLAZINE 500MG TAB,SA TAKE ONE TABLET BY MOUTH EVERY 12 HOURS FOR RAPID VENTRICU LAR HEARTBEA T ORAL SUSPEND ED 01/10/2025 [id number] 5 RUSTERHOL TZ,STEPHE N 2024 180 [facility] RANOLAZINE 500MG TAB,SA TAKE ONE TABLET BY MOUTH EVERY 12 HOURS FOR RAPID VENTRICU LAR HEARTBEA T ORAL DISCONT INUED 09/19/2024 [id number] 5 ELIAS,RE ELENA A 2024 180 [facility] RANOLAZINE 500MG TAB,SA TAKE ONE TABLET BY MOUTH EVERY 12 HOURS FOR RAPID VENTRICU LAR HEARTBEA T ORAL DISCONT INUED 07/17/2024 [id number] 5 ELIAS,RE ELENA A 2024 180 [facility] RANOLAZINE 500MG TAB,SA TAKE ONE TABLET BY MOUTH EVERY 12 HOURS FOR RAPID VENTRICU LAR HEARTBEA T ORAL DISCONT INUED 05/02/2024 [id number] 4 ELIAS,RE ELENA A 2023 180 [facility] RANOLAZINE 500MG TAB,SA TAKE ONE TABLET BY MOUTH EVERY 12 HOURS FOR RAPID VENTRICU LAR HEARTBEA T ORAL DISCONT INUED 11/18/2023 [id number] ELIAS,RE ELENA A 2023 180 [facility] RANOLAZINE 500MG TAB,SA TAKE ONE TABLET BY MOUTH EVERY 12 HOURS FOR RAPID VENTRICU LAR HEARTBEA T ORAL DISCONT INUED 10/28/2023 [id number] ELIAS,RE ELENA A 2023 180 [facility] ROSUVASTATI N CA 40MG TAB TAKE ONE TABLET BY MOUTH EVERY DAY FOR CHOLESTE ROL ORAL SUSPEND ED 10/13/2025 [id number] 5 RUSTERHOL TZ,STEPHE N 2024 90 [facility] ROSUVASTATI N CA 40MG TAB TAKE ONE TABLET BY MOUTH EVERY DAY FOR CHOLESTE ROL ORAL DISCONT INUED 12/14/2024 [id number] 5 ELIAS,RE ELENA A 2024 90 [facility] ROSUVASTATI N CA 40MG TAB TAKE ONE TABLET BY MOUTH EVERY DAY FOR CHOLESTE ROL ORAL DISCONT INUED 06/14/2024 [id number] 4 ELIAS,RE ELENA A 2023 90 [facility] SERTRALINE HCL 50MG TAB TAKE ONE TABLET BY MOUTH DAILY FOR MAJOR DEPRESSI VE DISORDER ORAL SUSPEND ED 06/03/2025 [id number] 5 SAPNA MEREDITH 2024 90 [facility] SERTRALINE HCL 50MG TAB TAKE ONE TABLET BY MOUTH DAILY FOR MAJOR DEPRESSI VE DISORDER ORAL DISCONT INUED 08/18/2024 [id number] SAPNA MEREDITH 2023 90 [facility] SPIRONOLACT ONE 25MG TAB TAKE ONE TABLET BY MOUTH EVERY DAY FOR HEART FAILURE ORAL SUSPEND ED 10/13/2025 [id number] 5 RUSTERHOL TZ,STEPHE N 2024 90 [facility] SPIRONOLACT ONE 25MG TAB TAKE ONE TABLET BY MOUTH EVERY DAY FOR HEART FAILURE ORAL DISCONT INUED 06/22/2025 [id number] 5 ELIAS,RE ELENA A 2024 90 [facility] SPIRONOLACT ONE 25MG TAB TAKE ONE TABLET BY MOUTH EVERY DAY FOR HEART FAILURE ORAL DISCONT INUED 03/24/2025 [id number] ELIAS,RE ELENA A 2024 90 [facility] TAMSULOSIN HCL 0.4MG CAP TAKE ONE CAPSULE BY MOUTH AT BEDTIME ORAL ACTIVE 06/22/2025 [id number] 5 ELIAS,RE ELENA A 2024 90 [facility] TAMSULOSIN HCL 0.4MG CAP TAKE ONE CAPSULE BY MOUTH AT BEDTIME ORAL DISCONT INUED 12/14/2024 [id number] 5 ELIAS,RE ELENA A 2023 90 [facility] TAMSULOSIN HCL 0.4MG CAP TAKE ONE CAPSULE BY MOUTH AT BEDTIME ORAL DISCONT INUED 06/14/2024 [id number] ELIAS,RE ELENA A 2023 90 [facility] Allergies, Adverse Reactions, Alerts Combined list of allergies from Department of Defense and Veterans Affairs facilities. It does not include entries that were removed or entered in error. Substance Category Reaction Severity Reaction type Status Date Reported Comments Source VICRYL SUTURES Propensity to adverse reaction (finding) active 9 [facility] Immunizations Combined list of available immunizations from the Department of Defense and Veterans Affairs facilities. Immunization Series Date Given Administered By Site Reaction Lot Number CVX Code Drug It Trainer Status Comments Source RSV, BIVALENT, PROTEIN SUBUNIT RSVPREF, DILUENT RECONSTITUTED , 0.5 ML, PF 2024 VELVET VALENTINE RIGHT DELTO ID [id number] 305 complet ed [facility] COVID-19 (PFIZER), MRNA, LNP-S, PF, LES-SUCROSE, 30 MCG/0.3 ML (AGES 12+ YEARS) 2023 VELVET VALENTINE RIGHT DELTO ID [id number] 309 complet ed [facility], [facility] INFLUENZA, HIGH-DOSE, TRIVALENT, PF 2023 ADRIANA DIAZ C LEFT DELTO ID [id number] A 135 complet ed [facility], [facility] COVID-19 (PFIZER), MRNA, LNP-S, PF, LES-SUCROSE, 30 MCG/0.3 ML (AGES 12+ YEARS) 1 2022 MONCHOTARIK Alex RIGHT DELTO ID [id number] 309 complet ed [facility] INFLUENZA, HIGH-DOSE, QUADRIVALENT 2022 VELVET VALENTINE Edwin L LEFT DELTO ID [id number] A 197 complet ed [facility] TDAP 2022 MINNA KIMBLE Ghanshyam RIGHT DELTO ID [id number] 115 complet ed [facility] COVID-19 (PFIZER), MRNA, LNP-S, BIVALENT BOOSTER, PF, 30 MCG/0.3 ML DOSE 1 2021 300 complet ed PFR; [id number]; 3 [facility] INFLUENZA VACCINE, QUADRIVALENT, ADJUVANTED 2021 205 complet ed [facility] COVID-19 (PFIZER), MRNA, LNP-S, PF, 30 MCG/0.3 ML DOSE, LES-SUCROSE (AGES 12+ YEARS) 4 2021 217 complet ed PFR; [id number]; 2 [facility] ZOSTER RECOMBINANT 2021 187 complet ed [facility] DTP 1 2021 01 complet ed HISTORICA L INFORMATI ON - FROM OTHER REGISTRY, [facility] COVID-19 (PFIZER), MRNA, LNP-S, PF, 30 MCG/0.3 ML DOSE 3 2020 208 complet ed PFR; [id number]; 2 [facility] INFLUENZA VACCINE, QUADRIVALENT, ADJUVANTED 2020 205 complet ed [facility] ZOSTER RECOMBINANT 2020 187 complet ed [facility] COVID-19 (MODERNA), MRNA, LNP-S, PF, 100 MCG/0.5 ML DOSE 2 2020 207 complet ed [facility] COVID-19 (MODERNA), MRNA, LNP-S, PF, 100 MCG/0.5 ML DOSE 1 2020 207 complet ed [facility] INFLUENZA, HIGH-DOSE, QUADRIVALENT 2019 197 complet [...] L INFORMATI ON - FROM OTHER REGISTRY, [facility] INFLUENZA (HISTORICAL) 2013 88 complet ed [facility] INFLUENZA (HISTORICAL) 2012 88 complet ed [facility] INFLUENZA, UNSPECIFIED FORMULATION 2012 88 complet ed [facility] INFLUENZA (HISTORICAL) 2011 88 complet ed [facility] INFLUENZA, UNSPECIFIED FORMULATION 2010 88 complet ed [facility] INFLUENZA, UNSPECIFIED FORMULATION 2009 88 complet ed [...] Reference Range Date Interpretation Specimen Comments Source B-TYPE NATRIURE TIC PEPTIDE NATRIURETI C PEPTIDE B [MASS/VOLU ME] IN SERUM OR PLASMA 612.0 pg/mL 0.0 - 135.0 10/12 H Specimen Type: PLASMA No comment entered. Ordering Provider: TYRON GEORGE Report Released Date/Time: Oct 12, 2024 10:58 AM Reporting Lab: [place] [phone] Performing Lab: [place] [phone] [place] [address] COMPREHE NSIVE METABOLI C PANEL ALBUMIN [MASS/VOLU ME] IN SERUM OR PLASMA 3.7 g/dL 3.5 - 4.8 10/12 Specimen Type: PLASMA Comment: GLUCOSE The ADA [...] at 13:12 10/12/24, POTASSIUM READ-BACK HAS BEEN PERFORMED-A LM Ordering Provider: TYRON GEORGE Report Released Date/Time: Oct 12, 2024 10:58 AM Reporting Lab: [place] [phone] Performing Lab: [place] [id number] COMPREHE NSIVE METABOLI C PANEL ALKALINE PHOSPHATAS E [ENZYMATIC ACTIVITY/V OLUME] IN SERUM OR PLASMA 91 U/L 40 - 150 10/12 Specimen Type: PLASMA Comment: GLUCOSE The ADA [...] at 13:12 10/12/24, POTASSIUM READ-BACK HAS BEEN PERFORMED-A LM Ordering Provider: TYRON GEORGE Report Released Date/Time: Oct 12, 2024 10:58 AM Reporting Lab: [place] [phone] Performing Lab: [place] [phone] [facility] COMPREHE NSIVE METABOLI C PANEL ALANINE AMINOTRANS FERASE [ENZYMATIC ACTIVITY/V OLUME] IN SERUM OR PLASMA 8 U/L 0 - 55 10/12 Specimen Type: PLASMA Comment: GLUCOSE The ADA [...] at 13:12 10/12/24, POTASSIUM READ-BACK HAS BEEN PERFORMED-A LM Ordering Provider: TYRON GEORGE Report Released Date/Time: Oct 12, 2024 10:58 AM Reporting Lab: [place] [phone] Performing Lab: [place] [phone] [facility] NSIVE METABOLI C PANEL ASPARTATE AMINOTRANS FERASE [ENZYMATIC ACTIVITY/V OLUME] IN SERUM OR PLASMA 16 U/L 10 - 40 10/12 Specimen Type: PLASMA Comment: GLUCOSE The ADA [...] at 13:12 10/12/24, POTASSIUM READ-BACK HAS BEEN PERFORMED-A LM Ordering Provider: TYRON GEORGE Report Released Date/Time: Oct 12, 2024 10:58 AM Reporting Lab: [place] [phone] Performing Lab: [place] [phone] [facility] COMPREHE NSIVE METABOLI C PANEL UREA NITROGEN [MASS/VOLU ME] IN SERUM OR PLASMA 6.6 mg/dL 8.4 - 25.7 10/12 L Specimen Type: PLASMA Comment: GLUCOSE The [...] at 13:12 10/12/24, POTASSIUM READ-BACK HAS BEEN PERFORMED-A LM Ordering Provider: TYRON GEORGE Report Released Date/Time: Oct 12, 2024 10:58 AM Reporting Lab: [place] [phone] Performing Lab: [place] [phone] [facility] COMPREHE NSIVE METABOLI C PANEL CALCIUM [MASS/VOLU ME] IN SERUM OR PLASMA 8.8 mg/dL 8.6 - 10.3 10/12 Specimen Type: PLASMA Comment: GLUCOSE The ADA [...] at 13:12 10/12/24, POTASSIUM READ-BACK HAS BEEN PERFORMED-A LM Ordering Provider: TYRON GEORGE Report Released Date/Time: Oct 12, 2024 10:58 AM Reporting Lab: [place] [phone] Performing Lab: [place] [phone] [facility] COMPREHE NSIVE METABOLI C PANEL CREATININE [MASS/VOLU ME] IN SERUM OR PLASMA 1.0 mg/dL 0.7 - 1.3 10/12 Specimen Type: PLASMA Comment: GLUCOSE The ADA [...] at 13:12 10/12/24, POTASSIUM READ-BACK HAS BEEN PERFORMED-A LM Ordering Provider: TYRON GEORGE Report Released Date/Time: Oct 12, 2024 10:58 AM Reporting Lab: [place] [phone] Performing Lab: [place] [phone] [facility] COMPREHE NSIVE METABOLI C PANEL CARBON DIOXIDE, TOTAL [MOLES/VOL UME] IN SERUM OR PLASMA 32 mmol/L 22 - 30 10/12 H Specimen Type: PLASMA Comment: GLUCOSE The ADA [...] at 13:12 10/12/24, POTASSIUM READ-BACK HAS BEEN PERFORMED-A LM Ordering Provider: TYRON GEORGE Report Released Date/Time: Oct 12, 2024 10:58 AM Reporting Lab: [address] [phone] Performing Lab: [place] [phone] [facility] COMPREHE NSIVE METABOLI C PANEL GLUCOSE [MASS/VOLU ME] IN SERUM OR PLASMA 125 mg/dL 74 - 99 10/12 H Specimen Type: PLASMA Comment: GLUCOSE The ADA [...] at 13:12 10/12/24, POTASSIUM READ-BACK HAS BEEN PERFORMED-A LM Ordering Provider: TYRON GEORGE Report Released Date/Time: Oct 12, 2024 10:58 AM Reporting Lab: [place] [phone] Performing Lab: [place] [phone] [facility] COMPREH NSIVE METABOLI C PANEL PROTEIN [MASS/VOLU ME] IN SERUM OR PLASMA 6.8 g/dL 6.4 - 8.3 10/12 Specimen Type: PLASMA Comment: GLUCOSE The ADA [...] at 13:12 10/12/24, POTASSIUM READ-BACK HAS BEEN PERFORMED-A LM Ordering Provider: TYRON GEORGE Report Released Date/Time: Oct 12, 2024 10:58 AM Reporting Lab: [address] [phone] Performing Lab: [place] [phone] [facility] COMPREHE NSIVE METABOLI C PANEL SODIUM [MOLES/VOL UME] IN SERUM OR PLASMA 143 mmol/L 134 - 144 10/12 Specimen Type: PLASMA Comment: GLUCOSE The ADA [...] at 13:12 10/12/24, POTASSIUM READ-BACK HAS BEEN PERFORMED-A LM Ordering Provider: TYRON GEORGE Report Released Date/Time: Oct 12, 2024 10:58 AM Reporting Lab: [place] [phone] Performing Lab: [place] [phone] [facility] COMPREHE NSIVE METABOLI C PANEL CHLORIDE [MOLES/VOL UME] IN SERUM OR PLASMA 103 mmol/L 99 - 112 10/12 Specimen Type: PLASMA Comment: GLUCOSE The ADA [...] at 13:12 10/12/24, POTASSIUM READ-BACK HAS BEEN PERFORMED-A LM Ordering Provider: TYRON GEORGE Report Released Date/Time: Oct 12, 2024 10:58 AM Reporting Lab: [place] [phone] Performing Lab: [place] [phone] COMPREH NSIVE METABOLI C PANEL BILIRUBIN. TOTAL [MASS/VOLU ME] IN SERUM OR PLASMA 0.5 mg/dL 0.2 - 1.2 10/12 Specimen Type: PLASMA Comment: GLUCOSE The ADA [...] at 13:12 10/12/24, POTASSIUM READ-BACK HAS BEEN PERFORMED-A LM Ordering Provider: TYRON GEORGE Report Released Date/Time: Oct 12, 2024 10:58 AM Reporting Lab: [place] [phone] Performing Lab: [place] [phone] [facility] COMPREHE NSIVE METABOLI C PANEL POTASSIUM [MOLES/VOL UME] IN SERUM OR PLASMA 2.1 mmol/L 3.5 - 5.1 10/12 LL Specimen Type: PLASMA Comment: GLUCOSE The ADA [...] at 13:12 10/12/24, POTASSIUM READ-BACK HAS BEEN PERFORMED-A LM Ordering Provider: TYRON GEORGE Report Released Date/Time: Oct 12, 2024 10:58 AM Reporting Lab: [place] [id number] Performing Lab: [place] [id number] [facility] COMPREHE NSIVE METABOLI C PANEL ANION GAP IN SERUM OR PLASMA 10 mmol/L - 10/12 Specimen Type: PLASMA Comment: GLUCOSE The ADA [...] at 13:12 10/12/24, POTASSIUM READ-BACK HAS BEEN PERFORMED-A LM Ordering Provider: TYRON GEORGE Report Released Date/Time: Oct 12, 2024 10:58 AM Reporting Lab: [place] [id number] Performing Lab: [place] [id number] [facility] COMPREHE NSIVE METABOLI C PANEL GLOMERULAR FILTRATION RATE/1.73 SQ M.PREDICTE D [VOLUME RATE/AREA] IN SERUM, PLASMA OR BLOOD BY CREATININE -BASED FORMULA (CKD-EPI 2020) 77 10/12 Specimen Type: PLASMA Comment: GLUCOSE The ADA [...] at 13:12 10/12/24, POTASSIUM READ-BACK HAS BEEN PERFORMED-A LM Ordering Provider: TYRON GEORGE Report Released Date/Time: Oct 12, 2024 10:58 AM Reporting Lab: [address] [id number] Performing Lab: [place] [id number] [facility] MAGNESIU M MAGNESIUM [MASS/VOLU ME] IN SERUM OR PLASMA 1.7 mg/dL 1.6 - 2.6 10/12 Specimen Type: PLASMA Comment: GLUCOSE The ADA [...] Oct 12, 2024 10:58 AM Reporting Lab: [place] [id number] Performing Lab: [place] [id number] [facility] CBC LEUKOCYTES [#/VOLUME] IN BLOOD BY AUTOMATED COUNT 6.3 10*3/uL 3.6 - 11.0 06/02 Specimen Type: BLOOD Comment: Giant or Large Platelets noted on Automated CBC. Ordering Provider: MELA GRIFFIN CCA Report Released Date/Time: Dec 14, 2023 12:09 PM Reporting Lab: [place] [phone] Performing Lab: [place] [id number] [facility] CBC ERYTHROCYT ES [#/VOLUME] IN BLOOD BY AUTOMATED COUNT 5.13 10*6/uL 4.47 - 5.83 06/02 Specimen Type: BLOOD Comment: Giant or Large Platelets noted on Automated CBC. Ordering Provider: MELA GRIFFIN CCA Report Released Date/Time: Dec 14, 2023 12:09 PM Reporting Lab: [address] [address] Performing Lab: [place] [phone] [facility] CBC HEMOGLOBIN [MASS/VOLU ME] IN BLOOD 11.4 g/dL 13.6 - 17.4 06/02 L Specimen Type: BLOOD Comment: Giant or Large Platelets noted on Automated CBC. Ordering Provider: MELA GRIFFIN CCA A Report Released Date/Time: Dec 14, 2023 12:09 PM Reporting Lab: [place] [phone] Performing Lab: [place] [id number] CBC HEMATOCRIT [VOLUME FRACTION] OF BLOOD BY AUTOMATED COUNT 36.0 40.0 - 51.0 06/02 L Specimen Type: BLOOD Comment: Giant or Large Platelets noted on Automated CBC. Ordering Provider: MELA GRIFFIN CCA A Report Released Date/Time: Dec 14, 2023 12:09 PM Reporting Lab: [place] [phone] Performing Lab: [place] [phone] CBC MCV [ENTITIC VOLUME] BY AUTOMATED COUNT 70.1 fL 80.0 - 96.0 06/02 L Specimen Type: BLOOD Comment: Giant or Large Platelets noted on Automated CBC. Ordering Provider: MELA GRIFFIN CCA A Report Released Date/Time: Dec 14, 2023 12:09 PM Reporting Lab: [place] [phone] Performing Lab: [place] [phone] CBC MCH [ENTITIC MASS] BY AUTOMATED COUNT 22.2 pg 27.0 - 31.0 06/02 L Specimen Type: BLOOD Comment: Giant or Large Platelets noted on Automated CBC. Ordering Provider: MELA GRIFFIN CCA A Report Released Date/Time: Dec 14, 2023 12:09 PM Reporting Lab: [place] [phone] Performing Lab: [place] [phone] CBC MCHC [MASS/VOLU ME] BY AUTOMATED COUNT 31.7 g/dL 31.5 - 36.5 06/02 Specimen Type: BLOOD Comment: Giant or Large Platelets noted on Automated CBC. Ordering Provider: MELA GRIFFIN CCA A Report Released Date/Time: Dec 14, 2023 12:09 PM Reporting Lab: [place] [phone] Performing Lab: [place] [phone] CBC PLATELETS [#/VOLUME] IN BLOOD BY AUTOMATED COUNT 183 10*3/uL 150 - 400 06/02 Specimen Type: BLOOD Comment: Giant or Large Platelets noted on Automated CBC. Ordering Provider: MELA GRIFFIN CCA A Report Released Date/Time: Dec 14, 2023 12:09 PM Reporting Lab: [place] [phone] Performing Lab: [place] [id number] CBC LYMPHOCYTE S/100 LEUKOCYTES IN BLOOD BY AUTOMATED COUNT 19.3 21.0 - 51.0 06/02 L Specimen Type: BLOOD Comment: Giant or Large Platelets noted on Automated CBC. Ordering Provider: MELA GRIFFIN CCA A Report Released Date/Time: Dec 14, 2023 12:09 PM Reporting Lab: [place] [phone] Performing Lab: [place] [phone] [place] [address] CBC MONOCYTES/ 100 LEUKOCYTES IN BLOOD BY AUTOMATED COUNT 9.3 4.0 - 8.0 06/02 H Specimen Type: BLOOD Comment: Giant or Large Platelets noted on Automated CBC. Ordering Provider: MELA GRIFFIN CCA A Report Released Date/Time: Dec 14, 2023 12:09 PM Reporting Lab: [place] [phone] Performing Lab: [place] [phone] [place] [address] CBC NUCLEATED ERYTHROCYT ES/100 LEUKOCYTES [RATIO] IN BLOOD BY MANUAL COUNT 0.1 /100{WBC s} 06/02 Specimen Type: BLOOD Comment: Giant or Large Platelets noted on Automated CBC. Ordering Provider: MELA GRIFFIN CCA A Report Released Date/Time: Dec 14, 2023 12:09 PM Reporting Lab: [place] [phone] Performing Lab: [place] [phone] [facility] CBC ERYTHROCYT E DISTRIBUTI ON WIDTH [RATIO] BY AUTOMATED COUNT 19.0 11.2 - 15.8 06/02 H Specimen Type: BLOOD Comment: Giant or Large Platelets noted on Automated CBC. Ordering Provider: MELA GRIFFIN CCA Report Released Date/Time: Dec 14, 2023 12:09 PM Reporting Lab: [place] [phone] Performing Lab: [place] [phone] [place] [address] CBC NEUTROPHIL S/100 LEUKOCYTES IN BLOOD BY AUTOMATED COUNT 67.7 54.0 - 78.0 06/02 Specimen Type: BLOOD Comment: Giant or Large Platelets noted on Automated CBC. Ordering Provider: MELA GRIFFIN CCA Report Released Date/Time: Dec 14, 2023 12:09 PM Reporting Lab: [place] [phone] Performing Lab: [place] [phone] CBC EOSINOPHIL S/100 LEUKOCYTES IN BLOOD BY AUTOMATED COUNT 2.7 0.0 - 3.0 06/02 Specimen Type: BLOOD Comment: Giant or Large Platelets noted on Automated CBC. Ordering Provider: MELA GRIFFIN CCA Report Released Date/Time: Dec 14, 2023 12:09 PM Reporting Lab: [place] [phone] Performing Lab: [place] [phone] CBC BASOPHILS/ 100 LEUKOCYTES IN BLOOD BY AUTOMATED COUNT 1.0 0.0 - 3.0 06/02 Specimen Type: BLOOD Comment: Giant or Large Platelets noted on Automated CBC. Ordering Provider: MELA GRIFFIN CCA Report Released Date/Time: Dec 14, 2023 12:09 PM Reporting Lab: [place] [phone] Performing Lab: [place] [phone] CBC LYMPHOCYTE S [#/VOLUME] IN BLOOD BY AUTOMATED COUNT 1.2 10*3/uL 0.8 - 5.0 06/02 Specimen Type: BLOOD Comment: Giant or Large Platelets noted on Automated CBC. Ordering Provider: MELA GRIFFIN CCA A Report Released Date/Time: Dec 14, 2023 12:09 PM Reporting Lab: [place] [phone] Performing Lab: [place] [phone] [facility] CBC NEUTROPHIL S [#/VOLUME] IN BLOOD 4.3 10*3/uL 1.9 - 8.6 06/02 Specimen Type: BLOOD Comment: Giant or Large Platelets noted on Automated CBC. Ordering Provider: MELA GRIFFIN CCA A Report Released Date/Time: Dec 14, 2023 12:09 PM Reporting Lab: [place] [phone] Performing Lab: [place] [phone] CBC BASOPHILS [#/VOLUME] IN BLOOD BY AUTOMATED COUNT 0.1 10*3/uL 0.0 - 0.3 06/02 Specimen Type: BLOOD Comment: Giant or Large Platelets noted on Automated CBC. Ordering Provider: MELA GRIFFIN CCA A Report Released Date/Time: Dec 14, 2023 12:09 PM Reporting Lab: [place] [phone] Performing Lab: [place] [phone] CBC MONOCYTES [#/VOLUME] IN BLOOD BY AUTOMATED COUNT 0.6 10*3/uL 0.1 - 0.9 06/02 Specimen Type: BLOOD Comment: Giant or Large Platelets noted on Automated CBC. Ordering Provider: MELA GRIFFIN CCA A Report Released Date/Time: Dec 14, 2023 12:09 PM Reporting Lab: [place] [phone] Performing Lab: [place] [phone] [facility] CBC EOSINOPHIL S [#/VOLUME] IN BLOOD BY AUTOMATED COUNT 0.2 10*3/uL 0.0 - 0.3 06/02 Specimen Type: BLOOD Comment: Giant or Large Platelets noted on Automated CBC. Ordering Provider: MELA GRIFFIN CCA A Report Released Date/Time: Dec 14, 2023 12:09 PM Reporting Lab: [place] [phone] Performing Lab: [place] [phone] [facility] CBC PLATELET MEAN VOLUME [ENTITIC VOLUME] IN BLOOD BY AUTOMATED COUNT 10.7 fL 7.4 - 11.4 06/02 Specimen Type: BLOOD Comment: Giant or Large Platelets noted on Automated CBC. Ordering Provider: MELA GRIFFIN CCA Report Released Date/Time: Dec 14, 2023 12:09 PM Reporting Lab: [place] [phone] Performing Lab: [place] [phone] [place] [address] COMPREHE NSIVE METABOLI C PANEL ALBUMIN [MASS/VOLU [...] Dec 14, 2023 12:09 PM Reporting Lab: [place] [phone] Performing Lab: [place] [phone] [place] [address] COMPREHE NSIVE METABOLI C PANEL ALKALINE PHOSPHATAS [...] Dec 14, 2023 12:09 PM Reporting Lab: [place] [phone] Performing Lab: [place] [phone] [facility] COMPREHE NSIVE METABOLI C PANEL ALANINE AMINOTRANS [...] Dec 14, 2023 12:09 PM Reporting Lab: [place] [phone] Performing Lab: [place] [phone] [place] [address] NSIVE METABOLI C PANEL ASPARTATE AMINOTRANS FERASE [...] Dec 14, 2023 12:09 PM Reporting Lab: [place] [phone] Performing Lab: [place] [phone] [facility] NSIVE METABOLI C PANEL UREA NITROGEN [MASS/VOLU [...] Dec 14, 2023 12:09 PM Reporting Lab: [place] [phone] Performing Lab: [address] COMPREHE NSIVE METABOLI C PANEL CALCIUM [...] Dec 14, 2023 12:09 PM Reporting Lab: [place] [id number] Performing Lab: [address] COMPREHE NSIVE METABOLI C PANEL CREATININE [...] Dec 14, 2023 12:09 PM Reporting Lab: [place] [phone] Performing Lab: [address] COMPREHE NSIVE METABOLI C PANEL CARBON [...] Dec 14, 2023 12:09 PM Reporting Lab: [place] [phone] Performing Lab: [place] [phone] [place] [address] COMPREHE NSIVE METABOLI C PANEL GLUCOSE [MASS/VOLU [...] Dec 14, 2023 12:09 PM Reporting Lab: [place] [phone] Performing Lab: [place] [phone] [place] [address] COMPREHE NSIVE METABOLI C PANEL PROTEIN [MASS/VOLU [...] Dec 14, 2023 12:09 PM Reporting Lab: [place] [phone] Performing Lab: [place] [phone] [facility] COMPREHE NSIVE METABOLI C PANEL SODIUM [MOLES/VOL [...] Dec 14, 2023 12:09 PM Reporting Lab: [place] [phone] Performing Lab: [address] COMPREHE NSIVE METABOLI C PANEL CHLORIDE [...] Dec 14, 2023 12:09 PM Reporting Lab: [address] Performing Lab: [address] COMPREHE NSIVE METABOLI C PANEL BILIRUBIN. [...] Dec 14, 2023 12:09 PM Reporting Lab: [place] [phone] Performing Lab: [place] [phone] [facility] COMPREHE NSIVE METABOLI C PANEL POTASSIUM [MOLES/VOL [...] Dec 14, 2023 12:09 PM Reporting Lab: [place] [phone] Performing Lab: [address] COMPREHE NSIVE METABOLI C PANEL ANION GAP IN [...] Dec 14, 2023 12:09 PM Reporting Lab: [place] [phone] Performing Lab: [place] [phone] [facility] COMPREHE NSIVE METABOLI C PANEL GLOMERULAR FILTRATION RATE/1.73 [...] Dec 14, 2023 12:09 PM Reporting Lab: [place] [phone] Performing Lab: [place] [phone] [facility] HEMOGLOB IN A1C HEMOGLOBIN A1C/HEMOGL OBIN.TOTAL IN [...] [email or web address] [email or web address] Ordering Provider: MELA GRIFFIN CCA A Report Released Date/Time: Dec 14, 2023 12:09 PM Reporting Lab: [place] [phone] Performing Lab: [place] [phone] [facility] LIPID PROFILE CHOLESTERO L [MASS/VOLU ME] IN [...] Dec 14, 2023 12:09 PM Reporting Lab: [address] [address] Performing Lab: [place] [phone] [facility] LIPID PROFILE CHOLESTERO L IN LDL [MASS/VOLU [...] Dec 14, 2023 12:09 PM Reporting Lab: [address] [address] Performing Lab: [place] [phone] [facility] LIPID PROFILE CHOLESTERO L IN HDL [MASS/VOLU [...] Dec 14, 2023 12:09 PM Reporting Lab: [place] [phone] Performing Lab: [place] [phone] [facility] LIPID PROFILE TRIGLYCERI DE [MASS/VOLU ME] IN [...] Dec 14, 2023 12:09 PM Reporting Lab: [address] [address] Performing Lab: [place] [phone] [facility] TSH THYROTROPI N [UNITS/VOL UME] IN SERUM [...] Dec 14, 2023 12:09 PM Reporting Lab: [place] [phone] Performing Lab: [place] [phone] URINALYS IS SPECIFIC GRAVITY OF URINE 1.028 1.016 - 1.022 06/02 H Specimen Type: URINE No comment entered. Ordering Provider: MELA GRIFFIN CCA A Report Released Date/Time: Dec 14, 2023 12:09 PM Reporting Lab: [place] [phone] Performing Lab: [place] [phone] [place] [address] URINALYS IS GLUCOSE [MASS/VOLU ME] IN URINE BY TEST STRIP >1000mg/ dL 06/02 H Specimen Type: URINE No comment entered. Ordering Provider: MELA GRIFFIN CCA A Report Released Date/Time: Dec 14, 2023 12:09 PM Reporting Lab: [place] [phone] Performing Lab: [place] [phone] [place] [address] URINALYS IS PROTEIN [MASS/VOLU ME] IN URINE BY TEST STRIP Negative mg/dL 06/02 Specimen Type: URINE No comment entered. Ordering Provider: MELA GRIFFIN CCA A Report Released Date/Time: Dec 14, 2023 12:09 PM Reporting Lab: [place] [phone] Performing Lab: [address] [phone] [facility] URINALYS IS PH OF URINE BY TEST STRIP 6.0 5.0 - 8.0 06/02 Specimen Type: URINE No comment entered. Ordering Provider: MELA GRIFFIN CCA A Report Released Date/Time: Dec 14, 2023 12:09 PM Reporting Lab: [address] [address] Performing Lab: [address] [address] [facility] URINALYS IS ERYTHROCYT ES [#/AREA] IN URINE SEDIMENT BY MICROSCOPY HIGH POWER FIELD 2 /[HPF] - 4 06/02 Specimen Type: URINE No comment entered. Ordering Provider: MELA GRIFFIN CCA A Report Released Date/Time: Dec 14, 2023 12:09 PM Reporting Lab: [address] [address] Performing Lab: [address] [address] [facility] URINALYS IS NITRITE [PRESENCE] IN URINE BY TEST STRIP Negative 06/02 Specimen Type: URINE No comment entered. Ordering Provider: MELA GRIFFIN CCA A Report Released Date/Time: Dec 14, 2023 12:09 PM Reporting Lab: [address] [phone] Performing Lab: [address] [address] [facility] URINALYS IS LEUKOCYTE ESTERASE [PRESENCE] IN URINE BY TEST STRIP Negative 06/02 Specimen Type: URINE No comment entered. Ordering Provider: MELA GRIFFIN CCA A Report Released Date/Time: Dec 14, 2023 12:09 PM Reporting Lab: [address] [address] Performing Lab: [address] [address] [facility] URINALYS IS CLARITY OF URINE Clear 06/02 Specimen Type: URINE No comment entered. Ordering Provider: MELA GRIFFIN CCA A Report Released Date/Time: Dec 14, 2023 12:09 PM Reporting Lab: [address] [address] Performing Lab: [address] [address] [facility] URINALYS IS BILIRUBIN. TOTAL [MASS/VOLU ME] IN URINE BY TEST STRIP Negative mg/dL - 0.4 06/02 Specimen Type: URINE No comment entered. Ordering Provider: MELA GRIFFIN CCA A Report Released Date/Time: Dec 14, 2023 12:09 PM Reporting Lab: [place] [phone] Performing Lab: [place] [phone] URINALYS IS HEMOGLOBIN [PRESENCE] IN URINE BY TEST STRIP Negative mg/dL <0.05 - 0.05 06/02 Specimen Type: URINE No comment entered. Ordering Provider: MELA GRIFFIN CCA A Report Released Date/Time: Dec 14, 2023 12:09 PM Reporting Lab: [place] [phone] Performing Lab: [place] [phone] URINALYS IS UROBILINOG EN [MASS/VOLU ME] IN URINE Negative mg/dL - 1 06/02 Specimen Type: URINE No comment entered. Ordering Provider: MELA GRIFFIN CCA A Report Released Date/Time: Dec 14, 2023 12:09 PM Reporting Lab: [place] [phone] Performing Lab: [place] [phone] URINALYS IS KETONES [MASS/VOLU ME] IN URINE BY TEST STRIP Negative mg/dL - 9 06/02 Specimen Type: URINE No comment entered. Ordering Provider: MELA GRIFFIN CCA A Report Released Date/Time: Dec 14, 2023 12:09 PM Reporting Lab: [place] [phone] Performing Lab: [place] [phone] URINALYS IS COLOR OF URINE Light-Ye llow [none] 06/02 Specimen Type: URINE No comment entered. Ordering Provider: MELA GRIFFIN CCA A Report Released Date/Time: Dec 14, 2023 12:09 PM Reporting Lab: [address] [place] [address] Performing Lab: [address] [address] [facility] VITAMIN D (TOTAL) 25-HYDROXY VITAMIN D3+25-HYDR OXYVITAMIN D2 [MASS/VOLU ME] IN SERUM OR PLASMA 35 ng/mL 30 - 60 06/02 Specimen Type: SERUM Comment: VITD One expert panel recommended a target range of 30-40 ng/mL. Ordering Provider: MELA GRIFFIN CCA Report Released Date/Time: Dec 14, 2023 12:09 PM Reporting Lab: [address] [address] Performing Lab: [address] [address] [facility] Vital Signs Combined list of inpatient and outpatient Vital Signs from Department of Defense and Veterans Affairs, ranging from 12 months to all on record, depending upon the facility. Vital Sign Value Date Comments Source SYSTOLIC BLOOD PRESSURE 102 10/12/2024 09:48:47 [facility] DIASTOLIC BLOOD PRESSURE 60 10/12/2024 09:48:47 [facility] PULSE OXIMETRY 93 % 10/12/2024 09:48:47 [facility] WEIGHT 154.9 10/12/2024 09:48:47 [facility] BMI 24 kg/m2 10/12/2024 09:48:47 [facility] PAIN 0 10/12/2024 09:48:47 [facility] TEMPERATURE 97.2 10/12/2024 09:48:47 [facility] PULSE 75 10/12/2024 09:48:47 [facility] RESPIRATION 18 10/12/2024 09:48:47 [facility] SYSTOLIC BLOOD PRESSURE 126 06/21/2024 10:34:38 [facility] DIASTOLIC BLOOD PRESSURE 69 06/21/2024 10:34:38 [facility] PULSE OXIMETRY 97 06/21/2024 10:34:38 [facility] WEIGHT 156 06/21/2024 10:34:38 [facility] BMI 24 kg/m2 06/21/2024 10:34:38 [facility] PAIN 0 06/21/2024 10:34:38 [facility] TEMPERATURE 97.8 06/21/2024 10:34:38 [facility] [place] [facility] PULSE 58 06/21/2024 10:34:38 [facility] RESPIRATION 16 06/21/2024 10:34:38 [facility] [place] [facility] SYSTOLIC BLOOD PRESSURE 120 06/02/2024 10:52:57 [facility] DIASTOLIC BLOOD PRESSURE 61 06/02/2024 10:52:57 [facility] PULSE OXIMETRY 98 06/02/2024 10:52:57 [facility] [place] [facility] WEIGHT 155 06/02/2024 10:52:57 [facility] BMI 24 kg/m2 06/02/2024 10:52:57 [facility] PAIN 0 06/02/2024 10:52:57 [facility] HEIGHT 67 06/02/2024 10:52:57 [facility] TEMPERATURE 97.4 06/02/2024 10:52:57 [facility] [place] [facility] PULSE 73 06/02/2024 10:52:57 [facility] RESPIRATION 16 06/02/2024 10:52:57 [facility] [place] [facility] SYSTOLIC BLOOD PRESSURE 139 03/21/2024 11:33:21 [facility] DIASTOLIC BLOOD PRESSURE 63 03/21/2024 11:33:21 [facility] PULSE OXIMETRY 95 03/21/2024 11:33:21 [facility] [place] [facility] WEIGHT 157 03/21/2024 11:33:21 [facility] BMI 25 kg/m2 03/21/2024 11:33:21 [facility] PAIN 0 03/21/2024 11:33:21 [facility] HEIGHT 67 03/21/2024 11:33:21 [facility] TEMPERATURE 96.5 03/21/2024 11:33:21 [facility] [place] [facility] PULSE 69 03/21/2024 11:33:21 [facility] RESPIRATION 16 03/21/2024 11:33:21 [facility] [place] [facility] SYSTOLIC BLOOD PRESSURE 111 12/14/2023 11:36:54 [facility] DIASTOLIC BLOOD PRESSURE 64 12/14/2023 11:36:54 [facility] PULSE OXIMETRY 95 12/14/2023 11:36:54 [facility] [place] [facility] WEIGHT 167 12/14/2023 11:36:54 [facility] BMI 26 kg/m2 12/14/2023 11:36:54 [facility] PAIN 0 12/14/2023 11:36:54 [facility] TEMPERATURE 98.3 12/14/2023 11:36:54 [facility] PULSE 65 12/14/2023 11:36:54 [facility] RESPIRATION 16 12/14/2023 11:36:54 [facility] Encounters Combined list of: 1) Encounters from Department of [facility] Affairs facilities going backup to the last 18 months, not all [place] inpatient encounters are included; 2) Encounters from the Department of [facility] facilities going backup to 280 months. 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 ropNATANAEL Mason 06/02 [facility] Outpatient Encounter [id number] 06/07 [facility] MTMS BY PHARM EST 15 MIN [id number] [id number] Diagnos is: ICD-10- CM Z51.81 Encount er for therape utic drug level monitor MIGDALIA Brenner 06/08 [facility] PSYTX W PT 30 MINUTES [id number] [id number] Diagnos is: ICD-10- CM F32.A Depress ion, unspeci fied CAROLIN XIONG 06/09 [place] [facility] MOD 30 MIN [id number] [id number] Diagnos is: ICD-10- CM N40.1 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 REJI GRIFFIN ECCA A 06/13 [facility] [facility] MTMS BY PHARM ADDL 15 MIN [id number] [id number] Diagnos is: ICD-10- CM F43.10 Post-tr aumatic stress disorde r, unspeci skyler MEREDITHR LESLIE J 06/13 [facility] OFF[facility] O/P EST LOW 20 MIN [id number] [id number] Diagnos is: ICD-10- CM H61.22 Impacte d cerumen , left ear ELIASREJI ECCA A 06/24 [place] [facility] OFFICE O/P EST LOW 20 MIN [id number] [id number] Diagnos is: ICD-10- CM L57.0 Actinic keratos is ROBERTO VICKERS A 06/29 [facility] 15 MIN [id number] [id number] Diagnos is: ICD-10- CM F43.10 Post-tr aumatic stress disorde r, unspeci skyler MEREDITHR LESLIE J 07/05 [facility] OFF[facility] O/P EST LOW 20 MIN [id number] [id number] Diagnos is: ICD-10- CM H61.22 Impacte d cerumen , left ear ELIASREJI ECCA A 07/08 [place] [facility] Outpatient Encounter [id number] 07/12 [facility] Outpatient Encounter [id number] Halima DIAZ 07/29 [facility] MTMS BY PHARM ADDL 15 MIN [id number] [id number] Diagnos is: ICD-10- CM F43.10 Post-tr aumatic stress disorde r, unspeci skyler MEREDITHR LESLIE J 08/17 [facility] PSYTX W PT 30 MINUTES [id number] [id number] Diagnos is: ICD-10- CM F32.A Depress ion, unspeci fied CAROLIN XIONG L 09/02 [facility] OFFICE O/P EST LOW 20 MIN [id number] [id number] Diagnos is: ICD-10- CM E11.40 Type 2 diabete s mellitu s with diabeti c neuropa thy, unsp STOIBER,NATANAEL NNIFER 09/08 [facility] MTMS BY PHARM EST 15 MIN 80943-9.54 [id number] Diagnos is: ICD-10- CM F43.10 Post-tr aumatic stress disorde r, unspeci skyler MEREDITH,R LESLIE J 09/30 [facility] ORTHOTIC MGMT&TRAIN G 1ST ENC 72832-7.54 [id number] 557 Diagnos is: ICD-10- CM E11.9 Type 2 diabete s mellitu s without complic ations [place]-[facility] TONYA KNOX M 10/06 [facility] [place]MIN 13998-0.54 [id number] 755 Diagnos is: ICD-10- CM Z23 Encount er for immuniz ation Halima DIAZ C 11/10 [facility] ORTHOTIC MGMT&TRAIN G 1ST ENC 70701-7.54 [id number] 405 Diagnos is: ICD-10- CM E11.9 Type 2 diabete s mellitu s without complic ations [facility] TONYA KNOX M 11/10 [facility] OFFICE O/P EST MOD 30 MIN 56029-4.54 [id number] Diagnos is: ICD-10- CM Z12.83 Encount er for screeni ng for maligna nt neoplas m of skin LINDSEY,DOMINIC 11/23 [facility] PSYTX W PT 30 MINUTES 98791-2.54 [id number] 145 Diagnos is: ICD-10- CM F32.A Depress ion, unspeci fied CAROLIN XIONG 12/06 [facility] Outpatient Encounter [id number] 12/13 [facility] OFFICE O/P EST MOD 30 MIN 46403-2.54 [id number] 394 Diagnos is: ICD-10- CM N40.1 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 ELIAS,REJI ECCA A 12/13 [facility] OFFICE O/P EST MOD 30 MIN 11650-7.54 [id number] 545 Diagnos is: ICD-10- CM E11.9 Type 2 diabete s mellitu s without complic ations AISHA COTTON 12/13 [facility] MTMS BY PHARM ADDL 15 MIN 83448-5.54 [id number] 450 Diagnos is: ICD-10- CM F43.10 Post-tr aumatic stress disorde r, unspeci fied VIRI,R LESLIE J 12/13 [facility] OFFICE O/P EST LOW 20 MIN 88777-5.54 [id number] Diagnos is: ICD-10- CM 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, unspeci fied NATANAEL LOUISE 03/21 [facility] ADDL 15 MIN [id number] Diagnos is: ICD-10- CM F43.10 Post-tr aumatic stress disorde r, unspeci fied VIRI,R LESLIE J 03/21 [facility] Outpatient Encounter [id number] 03/22 [facility] Outpatient Encounter [id number] 03/22 [facility] Outpatient Encounter [id number] 04/04 [facility] Outpatient Encounter [id number] 04/05 [facility] NQHP OL DIG ASSMT&MGMT 5-10 [id number] Diagnos is: ICD-10- CM Z51.81 Encount er for therape utic drug level monitor AISHA Rojo A 04/05 [facility] TTE W/DOPPLER COMPLETE [id number] Diagnos is: ICD-10- CM I50.32 Chronic diastol ic (conges tive) heart failure SUNIL FLETCHER 04/06 [facility] Outpatient Encounter [id number] 04/11 [facility] MTMS BY PHARM ADDL 15 MIN 59530-5.54 [id number] Diagnos is: ICD-10- CM F43.10 Post-tr aumatic stress disorde r, unspeci fied WILLXAVIER,R LESLIE J 04/18 [facility] Outpatient Encounter [id number] 04/25 [facility] Outpatient Encounter [id number] 05/03 [facility] MTMS BY PHARM ADDL 15 MIN [id number] Diagnos is: ICD-10- CM F43.10 Post-tr aumatic stress disorde r, unspeci fied VIRI,R LESLIE J 06/02 [facility] OFF/OP EST MAY X REQ PHY/QHP [id number] [id number] Diagnos is: ICD-10- CM R42 Dizzine ss and giddine ss RANDELL GOMEZ A 06/02 [facility] Outpatient Encounter [id number] 06/21 [facility] OFF[facility] O/P EST MOD 30 MIN 80689-9.54 [id number] Diagnos is: ICD-10- CM I50.32 Chronic diastol ic (conges tive) heart failure REJI GRIFFIN A 06/21 [facility] OFF[facility] O/P EST LOW 20 MIN 82156-9.54 [id number] Diagnos is: ICD-10- CM 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 MTMS BY PHARM ADDL 15 MIN [id number] Diagnos is: ICD-10- CM F43.10 Post-tr aumatic stress disorde r, unspeci fiMorro Barrett LESLIE J 07/26 [facility] MTMS BY PHARM ADDL 15 MIN [id number] [id number] Diagnos is: ICD-10- CM F43.10 Post-tr aumatic stress disorde r, unspeci Morro Ortega LESLIE J 09/20 [facility] Outpatient Encounter [id number] 09/22 [facility] OFFICE O/P EST MOD 30 MIN 75016-3.54 [id number] Diagnos is: ICD-10- CM I50.32 Chronic diastol ic (conges tive) heart failure TYRON BAKER 10/12 [facility] Social History Combined list of available smoking, tobacco, and other social history from [facility] Defense and [facility] facilities. Social History Type Response Date Comment Sourc e Tobacco smoking status MNIS VA-TOBACCO NEVER USED OTHER TYPE 06/02/2024 [facility] History of tobacco use VA-TOBACCO USE EVERY DAY CIGARETTES 06/02/2024 [facility] History of tobacco use VA-TOBACCO USER EVERY DAY 06/14/2023 [facility] History of tobacco use VA-TOBACCO USE 30 YEARS OR MORE 05/01/2022 [facility] History of tobacco use VA-TOBACCO USER EVERY DAY 05/09/2021 [facility] History of tobacco use VA-TOBACCO DOESNT USE WI 30 MIN WAKEUP 04/02/2020 [facility] History of tobacco use VA-TOBACCO USER EVERY DAY 09/14/2018 [facility] History of tobacco use VA-TOBACCO USER EVERY DAY 09/10/2017 [facility] History of tobacco use SMOKING CESSATION NO 09/06/2017 [facility] History of tobacco use CURRENT TOBACCO USER 08/12/2016 [facility] History of tobacco use CURRENT TOBACCO USER 07/23/2015 [facility] History of tobacco use TOBACCO CURRENT USER 06/12/2015 1/2 pack a day [facility] History of tobacco use CURRENT TOBACCO USER 03/27/2014 [facility] History of tobacco use CURRENT TOBACCO USER 04/24/2013 [facility] History of tobacco use CURRENT TOBACCO USER [...] Care List of future care activities from [facility] facilities[facility] Additional future care activities may be listed in the Assessment and Plan section. Date/Time Care Activity Care Activity Detail Facili ty 10/12/2024 AMBULATORY - MEDICINE AMBULATORY - MEDICI [facility] Advance Directives List of completed, amended, or rescinded Advance Directives on record at [facility] Affairs facilities. An actual copy of the Directive is not included. Date Advance Directive Provider Source 05/03/2019 [facility] DIRECT[facility] DISCUSSION [facility] 12/28/2012 [facility]IVE [facility] 12/28/2012 ADVANCE DIRECTIVE DISCUSSION [facility] 12/28/2012 RESCINDED ADVANCE DIRECTIVE [facility] 06/18/2009 [facility] DIRECTIVE DISCUSSION [facility]
--- OUTSIDE RECORDS SUMMARY | 2024-10-12 16:07 | XMS_ITS | Continuity of Care Document ---
Author Name [facility] Organization [facility] Care Team Providers Care Manufacturing Operator Name Role Phone [facility] Unavailable Unavailable Problems Combined list of problems from Department of Defense and Veterans Affairs facilities. It does not include entries that were removed or entered in error. Problem Status Onset Date Problem Type Date of Resolution Comments Source Paroxysmal atrial fibrillation (SNOMED CT 599858156) Active 07/17/19 11 Condition Sep 23, 2010 Entered By: ANNIE DELGADO Comment: Occurred with AMI July 2010. [place] [facility] findings on diagnostic imaging of lung Active Condition Aug 01, 2020 Entered By: ALEKSEY SALDAÑA CIA Comment: CT 04/2020.Repeat in 07/2020-->find ings stable. 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) Active Condition [facility] Chronic diastolic heart failure Active Condition [facility] Chronic insomnia Active Condition [facility] Coronary atherosclerosis (SNOMED CT 339144031) Active Condition Sep 23, 2010 Entered By: [...] [facility] Diabetic neuropathy Active Condition [facility] Difficulty cutting own toenails Active Condition [facility] Generalized Anxiety Disorder * (ICD-9-CM 300.02) Active Condition [facility] Hyperlipidemia (SNOMED CT 73488675) Active Condition [facility] Hypokalemia Active Condition [facility] Chcf (current) use of Anticoagulants (ICD-9-CM V58.61) Active Condition [facility] Noncompliance with Treatment (SNOMED CT 2047663) Active Condition [facility] Obstructive sleep apnea of adult Active Condition [facility] Posttraumatic stress disorder (SNOMED CT 28141794) Active Condition [facility] Pulmonary asbestosis Active Condition [facility] Sensorineural Hearing Loss, Bilateral (ICD-9-CM 389.18) Active Condition [facility] Thoracic aorta abnormality Active Condition May 01, 2020 Entered By: ALEKSEY SALDAÑA CIA Comment: 04/2020 Ectasia of ascending thoracic aorta. Size = 3.9 cm. [facility] Tobacco use (SNOMED CT 237446677) Active Condition [facility] Transient Ischemic Attack Active Condition [facility] Vitamin D Deficiency (SCT 8856050) Active Condition [facility] Callus Inactive Condition 05/01/2020 [facility] Encounter for Therapeutic Drug Monitoring (ICD-9-CM V58.83) Inactive Condition 05/01/2020 [facility] Onychomycosis of toenails Inactive Condition 05/01/2020 [facility] Osteoarthritis Inactive Condition 05/01/2020 [facility] Diagnosis: ICD-10-CM I50.32 Chronic diastolic (congestive) heart failure Active Diagnosis [facility] Diagnosis: ICD-10-CM F43.10 Post-traumatic stress disorder, unspecified Active Diagnosis [facility] Diagnosis: ICD-10-CM E11.42 Type 2 diabetes mellitus with diabetic polyneuropathy Active Diagnosis [facility] Diagnosis: ICD-10-CM R42 Dizziness and giddiness Active Diagnosis [facility] Diagnosis: ICD-10-CM Z51.81 Encounter for therapeutic drug level monitoring Active Diagnosis [facility] Diagnosis: ICD-10-CM L60.9 Nail disorder, unspecified Active Diagnosis [facility] Diagnosis: ICD-10-CM F17.210 Nicotine dependence, cigarettes, uncomplicated Active Diagnosis [facility] Diagnosis: ICD-10-CM E11.9 Type 2 diabetes mellitus without complications Active Diagnosis [facility] Diagnosis: ICD-10-CM N40.1 Benign prostatic hyperplasia with lower urinary tract symp Active Diagnosis [facility] Diagnosis: ICD-10-CM F32.A Depression, unspecified Active Diagnosis [facility] Diagnosis: ICD-10-CM Z12.83 Encounter for screening for malignant neoplasm of skin Active Diagnosis [facility] Diagnosis: ICD-10-CM Z23 Encounter for immunization Active Diagnosis [facility] Diagnosis: ICD-10-CM E11.40 Type 2 diabetes mellitus with diabetic neuropathy, unsp Active Diagnosis [facility] Diagnosis: ICD-10-CM H61.22 Impacted cerumen, left ear Active Diagnosis [facility] Diagnosis: ICD-10-CM L57.0 Actinic keratosis Active Diagnosis [facility] Medications Combined list of outpatient medications from [...] BEDTIME NEEDED FOR SLEEP ORAL ACTIVE 06/03/2025 15330129V 5 SAPNA MEREDITH 2024 60 [facility] AMITRIPTYLI NE HCL 25MG TAB TAKE ONE TO TWO TABLET(S ) BY MOUTH AT BEDTIME NEEDED FOR SLEEP ORAL DISCONT INUED 05/11/2024 [id number] 5 SAPNA MEREDITH 2023 60 [facility] AMLODIPINE BESYLATE 5MG TAB TAKE ONE TABLET BY MOUTH EVERY DAY ORAL DISCONT INUED BY PROVIDE R 12/14/2024 [id number] 5 ASH GRIFFIN ELENA A 2024 90 [facility] AMLODIPINE BESYLATE 5MG TAB TAKE ONE TABLET BY MOUTH EVERY DAY ORAL DISCONT INUED 06/14/2024 [id number] 4 ASH GRIFFIN ELENA A 2023 90 [facility] APIXABAN 5MG TAB TAKE ONE TABLET BY MOUTH TWICE A DAY DIRECTED BY THE [place] [facility]T. [phone]) ORAL ACTIVE 04/06/2025 [id number] 5 Ja GARCIA 2024 180 [facility] APIXABAN 5MG TAB TAKE ONE TABLET BY MOUTH TWICE A DAY DIRECTED BY THE [facility] EXT. [phone]) ORAL DISCONT INUED 06/09/2024 [id number] 5 LAVERNE GREER DEBBIE A 2023 180 [facility] ASPIRIN 81MG TAB,EC TAKE ONE TABLET BY MOUTH EVERY DAY (WITH FOOD) ORAL ACTIVE 12/14/2024 [id number] 5 ELIAS,RE ELENA A 2024 120 [facility] ASPIRIN 81MG TAB,EC TAKE ONE TABLET BY MOUTH EVERY DAY (WITH FOOD) ORAL DISCONT INUED 06/14/2024 [id number] 4 ELIAS,RE ELENA A 2023 120 [facility] CARBAMIDE PEROXIDE 6.5%/GLYCER IN SOLN,OTIC INSTILL 5 DROPS IN AFFECTED EAR(S) TWICE A DAY FOR 4 DAYS FOR EAR WAX BLOCKAGE FOR UP TO 4 DAYS; [facility] RX AURICU LAR (OTIC) 07/21/2024 [id number] ELIAS,RE ELENA A 2024 15 [facility] DIPHENHYDRA MINE HCL 50MG CAP TAKE 1 CAPSULE BY MOUTH AT BEDTIME ORAL ACTIVE JAIRON EDLGADO 2010 [facility] EMPAGLIFLOZ IN 25MG TAB TAKE ONE TABLET BY MOUTH EVERY MORNING FOR HEART FAILURE ORAL SUSPEND ED 10/13/2025 [id number] 5 RUSCHICHI RUIZ 2024 90 [facility] EMPAGLIFLOZ IN 25MG TAB TAKE ONE TABLET BY MOUTH EVERY MORNING FOR HEART FAILURE ORAL DISCONT INUED 06/22/2025 [id number] 5 ELIAS,RE ELENA A 2024 90 [facility] EMPAGLIFLOZ IN 25MG TAB TAKE ONE TABLET BY MOUTH EVERY MORNING FOR HEART FAILURE ORAL DISCONT INUED 03/24/2025 [id number] ELIAS,RE ELENA A 2024 90 [facility] FOLIC ACID 1MG TAB TAKE ONE TABLET BY MOUTH EVERY DAY ORAL ACTIVE RICH PAREDES 2010 [facility] FUROSEMIDE 40MG TAB TAKE ONE TABLET BY MOUTH EVERY DAY FOR EDEMA ORAL ACTIVE 09/15/2025 [id number] 5 ELIAS,RE ELENA A 2024 90 [facility] ISOSORBIDE MONONITRATE 120MG TAB,SA TAKE ONE TABLET BY MOUTH TWICE A DAY ORAL ACTIVE 07/28/2025 [id number] 5 ELIAS,RE ELENA A 2024 180 [facility] ISOSORBIDE MONONITRATE 120MG TAB,SA TAKE ONE TABLET BY MOUTH TWICE A DAY ORAL DISCONT INUED 06/14/2024 [id number] 5 ELIAS,RE ELENA A 2023 180 [facility] LISINOPRIL 5MG TAB TAKE ONE TABLET BY MOUTH EVERY DAY ORAL SUSPEND ED 10/13/2025 [id number] 5 RUSTERCHICHI HSU 2024 90 [facility] LISINOPRIL 5MG TAB TAKE ONE TABLET BY MOUTH EVERY DAY ORAL DISCONT INUED 12/14/2024 [id number] ELIAS,RE ELENA A 2024 90 [facility] LISINOPRIL 5MG TAB TAKE ONE TABLET BY MOUTH EVERY DAY ORAL DISCONT INUED 06/14/2024 [id number] 4 ELIAS,RE ELENA A 2023 90 [facility] MELATONIN CAP/TAB TAKE ONE CAP/TAB BY MOUTH AT BEDTIME ORAL ACTIVE JAIRON DELGADO 2010 [facility] METFORMIN HCL 500MG TAB TAKE ONE TABLET BY MOUTH EVERY DAY FOR TYPE 2 DIABETES MELLITUS (WITH FOOD; AVOID ALCOHOL) ORAL ACTIVE 06/22/2025 [id number] 5 ELIAS,RE ELENA A 2024 90 [facility] METFORMIN HCL 500MG TAB TAKE ONE TABLET BY MOUTH EVERY DAY FOR TYPE 2 DIABETES MELLITUS (WITH FOOD; AVOID ALCOHOL) ORAL DISCONT INUED 12/14/2024 [id number] 5 ELIAS,RE ELENA A 2023 90 [facility] METFORMIN HCL 500MG TAB TAKE ONE TABLET BY MOUTH EVERY DAY FOR TYPE 2 DIABETES MELLITUS (AVOID ALCOHOL) ORAL DISCONT INUED 07/30/2024 [id number] ELIAS,RE ELENA A 2023 90 [facility] METOPROLOL TARTRATE 25MG TAB TAKE ONE TABLET BY MOUTH TWICE A DAY ORAL SUSPEND ED 10/13/2025 [id number] 5 RUSTERHOL TZSTEPBLAIR N 2024 180 [facility] METOPROLOL TARTRATE 25MG TAB TAKE ONE TABLET BY MOUTH TWICE A DAY ORAL DISCONT INUED 12/14/2024 [id number] 5 ELIAS,RE ELENA A 2024 180 [facility] METOPROLOL TARTRATE 25MG TAB TAKE ONE TABLET BY MOUTH TWICE A DAY ORAL DISCONT INUED 06/14/2024 [id number] ELIAS,RE ELENA A 2023 180 [facility] MIRTAZAPINE 15MG TAB TAKE ONE TABLET BY MOUTH AT BEDTIME ORAL SUSPEND ED 07/27/2025 [id number] 5 SAPNA MEREDITH 2024 90 [facility] MIRTAZAPINE 15MG TAB TAKE ONE TABLET BY MOUTH AT BEDTIME ORAL DISCONT INUED 07/06/2024 [id number] 5 SAPNA MEREDITH 2023 90 [facility] MULTIVITAMI NS CAP/TAB TAKE 1 TAB/CAP BY MOUTH EVERY DAY ORAL ACTIVE JAIRON DELGADO 2008 [facility] NICOTINE 14MG/24HRS PATCH APPLY 1 PATCH (14MG/24 HR) TO CLEAN DRY SKIN EVERY DAY FOR SMOKING CESSATIO N : APPLY EVERY MORNING, REMOVE AT BEDTIME TRANSD ERMAL ACTIVE 03/23/2025 [id number] 5 SAPNA MEREDITH 2024 28 [facility] NICOTINE 7MG/24HRS PATCH APPLY 1 PATCH (7MG/24H R) TO CLEAN DRY SKIN EVERY DAY FOR SMOKING CESSATIO N : APPLY EVERY MORNING, REMOVE AT BEDTIME TRANSD ERMAL 04/21/2024 [id number] SAPNA MEREDITH 2024 28 [facility] NITROGLYCER IN 0.4MG TAB,SUBLING UAL DISSOLVE ONE TABLET UNDER THE TONGUE NEEDED FOR ACUTE ATTACK OF ANGINA FOR CHEST PAIN; IF CHEST PAIN IS NOT IMPROVED 5 MINUTES AFTER TAKING 1 TABLET, CALL 911 DISPE NSE IN ORIGINAL CONTAINE R SUBLIN BEN 08/20/2024 [id number] 4 ELIAS,RE ELENA A 2023 100 [facility] PANTOPRAZOL E NA 20MG TAB,EC TAKE ONE TABLET BY MOUTH EVERY MORNING, ON AN EMPTY STOMACH ORAL ACTIVE 02/02/2025 [id number] 5 ELIAS,RE ELENA A 2023 90 [facility] PANTOPRAZOL E NA 20MG TAB,EC TAKE ONE TABLET BY MOUTH EVERY MORNING, ON AN EMPTY STOMACH ORAL DISCONT INUED 02/04/2024 [id number] ELIAS,RE ELENA A 2022 90 [facility] RANOLAZINE 500MG TAB,SA TAKE ONE TABLET BY MOUTH EVERY 12 HOURS FOR RAPID VENTRICU LAR HEARTBEA T ORAL SUSPEND ED 01/10/2025 [id number] 5 RUSTERHOL TZ,STEPHE N 2024 180 [facility] RANOLAZINE 500MG TAB,SA TAKE ONE TABLET BY MOUTH EVERY 12 HOURS FOR RAPID VENTRICU LAR HEARTBEA T ORAL DISCONT INUED 09/19/2024 [id number] 5 ELIAS,RE ELENA A 2024 180 [facility] RANOLAZINE 500MG TAB,SA TAKE ONE TABLET BY MOUTH EVERY 12 HOURS FOR RAPID VENTRICU LAR HEARTBEA T ORAL DISCONT INUED 07/17/2024 [id number] 5 ELIAS,RE ELENA A 2024 180 [facility] RANOLAZINE 500MG TAB,SA TAKE ONE TABLET BY MOUTH EVERY 12 HOURS FOR RAPID VENTRICU LAR HEARTBEA T ORAL DISCONT INUED 05/02/2024 [id number] ELIAS,RE ELENA A 2023 180 [facility] RANOLAZINE 500MG TAB,SA TAKE ONE TABLET BY MOUTH EVERY 12 HOURS FOR RAPID VENTRICU LAR HEARTBEA T ORAL DISCONT INUED 11/18/2023 [id number] 4 ELIAS,RE ELENA A 2023 180 [facility] RANOLAZINE 500MG TAB,SA TAKE ONE TABLET BY MOUTH EVERY 12 HOURS FOR RAPID VENTRICU LAR HEARTBEA T ORAL DISCONT INUED 10/28/2023 [id number] 4 ELIAS,RE ELENA A 2023 180 [facility] ROSUVASTATI N CA 40MG TAB TAKE ONE TABLET BY MOUTH EVERY DAY FOR CHOLESTE ROL ORAL SUSPEND ED 10/13/2025 [id number] 5 RUSTERHOL TZ,STEPHE N 2024 90 [facility] ROSUVASTATI N CA 40MG TAB TAKE ONE TABLET BY MOUTH EVERY DAY FOR CHOLESTE ROL ORAL DISCONT INUED 12/14/2024 [id number] 5 ELIAS,RE ELENA A 2024 90 [facility] ROSUVASTATI N CA 40MG TAB TAKE ONE TABLET BY MOUTH EVERY DAY FOR CHOLESTE ROL ORAL DISCONT INUED 06/14/2024 [id number] 4 ELIAS,RE ELENA A 2023 90 [facility] SERTRALINE HCL 50MG TAB TAKE ONE TABLET BY MOUTH DAILY FOR MAJOR DEPRESSI VE DISORDER ORAL SUSPEND ED 06/03/2025 [id number] 5 SAPNA MEREDITH 2024 90 [facility] SERTRALINE HCL 50MG TAB TAKE ONE TABLET BY MOUTH DAILY FOR MAJOR DEPRESSI VE DISORDER ORAL DISCONT INUED 08/18/2024 [id number] SAPNA MEREDITH 2023 90 [facility] SPIRONOLACT ONE 25MG TAB TAKE ONE TABLET BY MOUTH EVERY DAY FOR HEART FAILURE ORAL SUSPEND ED 10/13/2025 [id number] 5 RUSTERHOL TZ,STEPHE N 2024 90 [facility] SPIRONOLACT ONE 25MG TAB TAKE ONE TABLET BY MOUTH EVERY DAY FOR HEART FAILURE ORAL DISCONT INUED 06/22/2025 [id number] ELIAS,RE ELENA A 2024 90 [facility] SPIRONOLACT ONE 25MG TAB TAKE ONE TABLET BY MOUTH EVERY DAY FOR HEART FAILURE ORAL DISCONT INUED 03/24/2025 [id number] ELIAS,RE ELENA A 2024 90 [facility] TAMSULOSIN HCL 0.4MG CAP TAKE ONE CAPSULE BY MOUTH AT BEDTIME ORAL ACTIVE 06/22/2025 [id number] 5 ELIAS,RE ELENA A 2024 90 [facility] TAMSULOSIN HCL 0.4MG CAP TAKE ONE CAPSULE BY MOUTH AT BEDTIME ORAL DISCONT INUED 12/14/2024 [id number] 5 ELIAS,RE ELENA A 2023 90 [facility] TAMSULOSIN HCL 0.4MG CAP TAKE ONE CAPSULE BY MOUTH AT BEDTIME ORAL DISCONT INUED 06/14/2024 [id number] 4 ELIAS,RE ELENA A 2023 90 [facility] Allergies, Adverse Reactions, Alerts Combined list of allergies from Department of Defense and Veterans Affairs facilities. It does not include entries that were removed or entered in error. Substance Category Reaction Severity Reaction type Status Date Reported Comments Source VICRYL SUTURES Propensity to adverse reaction (finding) active 9 [facility] Immunizations Combined list of available immunizations from the Department of Defense and Veterans Affairs facilities. 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 Status Comments Source RSV, BIVALENT, PROTEIN SUBUNIT RSVPREF, DILUENT RECONSTITUTED , 0.5 ML, PF 2024 VELVET VALENTINE RIGHT DELTO ID [id number] 305 complet ed [facility] [place], [facility] COVID-19 (PFIZER), MRNA, LNP-S, PF, LES-SUCROSE, 30 MCG/0.3 ML (AGES 12+ YEARS) 2023 VELVET VALENTINE RIGHT DELTO ID [id number] 309 complet ed [facility] [place] [facility] [place], [facility] INFLUENZA, HIGH-DOSE, TRIVALENT, PF 2023 ADRIANA DIAZ C LEFT DELTO ID [id number] A 135 complet ed [facility] [place], [facility] COVID-19 (PFIZER), MRNA, LNP-S, PF, LES-SUCROSE, 30 MCG/0.3 ML (AGES 12+ YEARS) 1 2022 MONCHOTARIK Alex RIGHT DELTO ID [id number] 309 complet ed [facility] [place], [facility] INFLUENZA, HIGH-DOSE, QUADRIVALENT 2022 VELVET VALENTINE Edwin L LEFT DELTO ID [id number] A 197 complet ed [facility] [place] [facility] [place], [facility] TDAP 2022 MINNA KIMBLE Ghanshyam RIGHT DELTO ID [id number] 115 complet ed [facility] [place], [facility] COVID-19 (PFIZER), MRNA, LNP-S, BIVALENT BOOSTER, PF, 30 MCG/0.3 ML DOSE 1 2021 300 complet ed PFR; [id number]; 3 [facility] INFLUENZA VACCINE, QUADRIVALENT, ADJUVANTED 2021 205 complet ed [facility] COVID-19 (PFIZER), MRNA, LNP-S, PF, 30 MCG/0.3 ML DOSE, LES-SUCROSE (AGES 12+ YEARS) 4 2021 217 complet ed PFR; [id number]; 2 [facility] ZOSTER RECOMBINANT 2021 187 complet ed [facility] DTP 1 2021 01 complet ed HISTORICA L INFORMATI ON - FROM OTHER REGISTRY, [facility] COVID-19 (PFIZER), MRNA, LNP-S, PF, 30 MCG/0.3 ML DOSE 3 2020 208 complet ed PFR; [id number]; 2 [facility] INFLUENZA VACCINE, QUADRIVALENT, ADJUVANTED 2020 205 complet ed [facility] ZOSTER RECOMBINANT 2020 187 complet ed [facility] COVID-19 (MODERNA), MRNA, LNP-S, PF, 100 MCG/0.5 ML DOSE 2 2020 207 complet ed [facility] COVID-19 (MODERNA), MRNA, LNP-S, PF, 100 MCG/0.5 ML DOSE 1 2020 207 complet ed [facility] INFLUENZA, HIGH-DOSE, QUADRIVALENT 2019 197 complet ed [...] L INFORMATI ON - FROM OTHER REGISTRY, [facility] INFLUENZA (HISTORICAL) 2013 88 complet [facility] INFLUENZA (HISTORICAL) 2012 88 complet ed [facility] INFLUENZA, UNSPECIFIED FORMULATION 2012 88 complet ed [facility] INFLUENZA (HISTORICAL) 2011 88 complet ed [facility] INFLUENZA, UNSPECIFIED FORMULATION 2010 88 complet ed [facility] INFLUENZA, UNSPECIFIED FORMULATION 2009 88 complet ed [...] Reference Range Date Interpretation Specimen Comments Source WERO Varghese MAGNESIUM [MASS/VOLU ME] IN SERUM OR PLASMA [...] Oct 12, 2024 10:58 AM Reporting Lab: [place] [phone] Performing Lab: [place] [phone] [facility] B-TYPE NATRIURE TIC PEPTIDE NATRIURETI C PEPTIDE B [MASS/VOLU ME] IN SERUM OR PLASMA 612.0 pg/mL 0.0 - 135.0 10/12 H Specimen Type: PLASMA No comment entered. Ordering Provider: TYRON GEORGE Report Released Date/Time: Oct 12, 2024 10:58 AM Reporting Lab: [place] [phone] Performing Lab: [place] [phone] [facility] COMPREHE NSIVE METABOLI C PANEL ALBUMIN [MASS/VOLU [...] 13:12 10/12/24, POTASSIUM READ-BACK HAS BEEN PERFORMED-A Ordering Provider: TYRON GEORGE Report Released Date/Time: Oct 12, 2024 10:58 AM Reporting Lab: [address] [phone] Performing Lab: [place] [phone] [facility] NSIVE METABOLI C PANEL ALKALINE PHOSPHATAS E [...] Oct 12, 2024 10:58 AM Reporting Lab: [place] [phone] Performing Lab: [address] NSIVE METABOLI C PANEL ALANINE AMINOTRANS FERASE [...] Oct 12, 2024 10:58 AM Reporting Lab: [place] [phone] Performing Lab: [place] [id number] [facility] NSIVE METABOLI C PANEL ASPARTATE AMINOTRANS [...] Oct 12, 2024 10:58 AM Reporting Lab: [place] [phone] Performing Lab: [place] [phone] [facility] COMPREHE NSIVE METABOLI C PANEL UREA [...] Oct 12, 2024 10:58 AM Reporting Lab: [address] [phone] Performing Lab: [place] [phone] [facility] COMPREHE NSIVE METABOLI C PANEL CALCIUM [...] Oct 12, 2024 10:58 AM Reporting Lab: [place] [phone] Performing Lab: [place] [phone] [facility] COMPREHE NSIVE METABOLI C PANEL CREATININE [...] Oct 12, 2024 10:58 AM Reporting Lab: [place] [phone] Performing Lab: [place] [phone] [facility] COMPREHE NSIVE METABOLI C PANEL CARBON [...] Oct 12, 2024 10:58 AM Reporting Lab: [place] [phone] Performing Lab: [place] [phone] [facility] COMPREHE NSIVE METABOLI C PANEL GLUCOSE [...] Oct 12, 2024 10:58 AM Reporting Lab: [place] [phone] Performing Lab: [place] [phone] [facility] COMPREHE NSIVE METABOLI C PANEL PROTEIN [MASS/VOLU [...] Oct 12, 2024 10:58 AM Reporting Lab: [place] [phone] Performing Lab: [place] [phone] [facility] COMPREHE NSIVE METABOLI C PANEL SODIUM [...] Oct 12, 2024 10:58 AM Reporting Lab: [place] [phone] Performing Lab: [place] [phone] [facility] COMPREHE NSIVE METABOLI C PANEL CHLORIDE [MOLES/VOL [...] Oct 12, 2024 10:58 AM Reporting Lab: [place] [phone] Performing Lab: [place] [phone] [facility] COMPREHE NSIVE METABOLI C PANEL BILIRUBIN. TOTAL [...] Oct 12, 2024 10:58 AM Reporting Lab: [place] [phone] Performing Lab: [place] [phone] [facility] COMPREHE NSIVE METABOLI C PANEL POTASSIUM [...] Oct 12, 2024 10:58 AM Reporting Lab: [place] [phone] Performing Lab: [place] [phone] [facility] NSIVE METABOLI C PANEL ANION GAP IN SERUM OR PLASMA 10 mmol/L 10 - 20 10/12 Specimen Type: PLASMA Comment: GLUCOSE The [...] Oct 12, 2024 10:58 AM Reporting Lab: [address] [phone] Performing Lab: [address] [phone] [facility] COMPREHE NSIVE METABOLI C PANEL GLOMERULAR [...] 13:12 10/12/24, POTASSIUM READ-BACK HAS BEEN PERFORMED-A Ordering Provider: TYRON GEORGE Report Released Date/Time: Oct 12, 2024 10:58 AM Reporting Lab: [address] [phone] Performing Lab: [address] [phone] [facility] TSH THYROTROPI N [UNITS/VOL UME] IN [...] Dec 14, 2023 12:09 PM Reporting Lab: [place] [phone] Performing Lab: [place] [phone] [facility] VITAMIN D (TOTAL) 25-HYDROXY VITAMIN D3+25-HYDR OXYVITAMIN D2 [MASS/VOLU ME] IN SERUM OR PLASMA 35 ng/mL 30 - 60 06/02 Specimen Type: SERUM Comment: VITD One expert panel recommended a target range of 30-40 ng/mL. Ordering Provider: MELA GRIFFIN CCA A Report Released Date/Time: Dec 14, 2023 12:09 PM Reporting Lab: [place] [phone] Performing Lab: [place] [phone] [place] [address] HEMOGLOB IN A1C HEMOGLOBIN A1C/HEMOGL OBIN.TOTAL IN [...] Dec 14, 2023 12:09 PM Reporting Lab: [place] [phone] Performing Lab: [place] [phone] [facility] LIPID PROFILE CHOLESTERO L [MASS/VOLU ME] [...] Dec 14, 2023 12:09 PM Reporting Lab: [address] [phone] Performing Lab: [place] [phone] LIPID PROFILE CHOLESTERO L IN LDL [MASS/VOLU [...] Dec 14, 2023 12:09 PM Reporting Lab: [address] [address] Performing Lab: [place] [phone] [facility] LIPID PROFILE CHOLESTERO L IN HDL [...] Dec 14, 2023 12:09 PM Reporting Lab: [place] [phone] Performing Lab: [place] [phone] LIPID PROFILE TRIGLYCERI DE [MASS/VOLU ME] IN [...] Dec 14, 2023 12:09 PM Reporting Lab: [place] [phone] Performing Lab: [place] [phone] [facility] URINALYS IS SPECIFIC GRAVITY OF URINE 1.028 1.016 - 1.022 06/02 H Specimen Type: URINE No comment entered. Ordering Provider: MELA GRIFFIN CCA A Report Released Date/Time: Dec 14, 2023 12:09 PM Reporting Lab: [place] [phone] Performing Lab: [place] [phone] [facility] URINALYS IS GLUCOSE [MASS/VOLU ME] IN URINE BY TEST STRIP >1000mg/ dL 06/02 H Specimen Type: URINE No comment entered. Ordering Provider: MELA GRIFFIN CCA A Report Released Date/Time: Dec 14, 2023 12:09 PM Reporting Lab: [place] [phone] Performing Lab: [place] [phone] URINALYS IS PROTEIN [MASS/VOLU ME] IN URINE BY TEST STRIP Negative mg/dL 06/02 Specimen Type: URINE No comment entered. Ordering Provider: MELA GRIFFIN CCA A Report Released Date/Time: Dec 14, 2023 12:09 PM Reporting Lab: [place] [phone] Performing Lab: [place] [phone] [place] [address] URINALYS IS PH OF URINE BY TEST STRIP 6.0 5.0 - 8.0 06/02 Specimen Type: URINE No comment entered. Ordering Provider: MELA GRIFFIN CCA A Report Released Date/Time: Dec 14, 2023 12:09 PM Reporting Lab: [place] [phone] Performing Lab: [place] [id number] URINALYS IS ERYTHROCYT ES [#/AREA] IN URINE SEDIMENT BY MICROSCOPY HIGH POWER FIELD 2 /[HPF] - 4 06/02 Specimen Type: URINE No comment entered. Ordering Provider: MELA GRIFFIN CCA A Report Released Date/Time: Dec 14, 2023 12:09 PM Reporting Lab: [address] [phone] Performing Lab: [place] [phone] [facility] URINALYS IS NITRITE [PRESENCE] IN URINE BY TEST STRIP Negative 06/02 Specimen Type: URINE No comment entered. Ordering Provider: MELA GRIFFIN CCA A Report Released Date/Time: Dec 14, 2023 12:09 PM Reporting Lab: [address] [phone] Performing Lab: [address] [phone] [facility] URINALYS IS LEUKOCYTE ESTERASE [PRESENCE] IN URINE BY TEST STRIP Negative 06/02 Specimen Type: URINE No comment entered. Ordering Provider: MELA GRIFFIN CCA A Report Released Date/Time: Dec 14, 2023 12:09 PM Reporting Lab: [place] [phone] Performing Lab: [place] [phone] [place] [address] URINALYS IS CLARITY OF URINE Clear 06/02 Specimen Type: URINE No comment entered. Ordering Provider: MELA GRIFFIN CCA A Report Released Date/Time: Dec 14, 2023 12:09 PM Reporting Lab: [address] [phone] Performing Lab: [place] [phone] [facility] URINALYS IS BILIRUBIN. TOTAL [MASS/VOLU ME] IN URINE BY TEST STRIP Negative mg/dL - 0.4 06/02 Specimen Type: URINE No comment entered. Ordering Provider: MELA GRIFFIN CCA A Report Released Date/Time: Dec 14, 2023 12:09 PM Reporting Lab: [address] [phone] Performing Lab: [place] [phone] [facility] URINALYS IS HEMOGLOBIN [PRESENCE] IN URINE BY TEST STRIP Negative mg/dL <0.05 - 0.05 06/02 Specimen Type: URINE No comment entered. Ordering Provider: MELA GRIFFIN CCA A Report Released Date/Time: Dec 14, 2023 12:09 PM Reporting Lab: [place] [phone] Performing Lab: [address] URINALYS IS UROBILINOG EN [MASS/VOLU ME] IN URINE Negative mg/dL - 1 06/02 Specimen Type: URINE No comment entered. Ordering Provider: MELA GRIFFIN CCA Report Released Date/Time: Dec 14, 2023 12:09 PM Reporting Lab: [place] [address] Performing Lab: [address] URINALYS IS KETONES [MASS/VOLU ME] IN URINE BY TEST STRIP Negative mg/dL - 9 06/02 Specimen Type: URINE No comment entered. Ordering Provider: MELA GRIFFIN CCA Report Released Date/Time: Dec 14, 2023 12:09 PM Reporting Lab: [place] [address] Performing Lab: [address] URINALYS IS COLOR OF URINE Light-Ye llow [none] 06/02 Specimen Type: URINE No comment entered. Ordering Provider: MELA GRIFFIN CCA Report Released Date/Time: Dec 14, 2023 12:09 PM Reporting Lab: [place] [address] Performing Lab: [address] COMPREHE NSIVE METABOLI C PANEL ALBUMIN [MASS/VOLU [...] Dec 14, 2023 12:09 PM Reporting Lab: [place] [phone] Performing Lab: [place] [phone] [facility] COMPREHE NSIVE METABOLI C PANEL ALKALINE PHOSPHATAS [...] Dec 14, 2023 12:09 PM Reporting Lab: [place] [phone] Performing Lab: [place] [phone] [place] [address] COMPREHE NSIVE METABOLI C PANEL ALANINE AMINOTRANS [...] Dec 14, 2023 12:09 PM Reporting Lab: [place] [phone] Performing Lab: [place] [phone] [facility] COMPREHE NSIVE METABOLI C PANEL ASPARTATE AMINOTRANS FERASE [...] Dec 14, 2023 12:09 PM Reporting Lab: [place] [phone] Performing Lab: [place] [phone] [facility] COMPREHE NSIVE METABOLI C PANEL UREA [...] Dec 14, 2023 12:09 PM Reporting Lab: [place] [phone] Performing Lab: [place] [phone] [facility] COMPREHE NSIVE METABOLI C PANEL CALCIUM [...] Dec 14, 2023 12:09 PM Reporting Lab: [place] [phone] Performing Lab: [place] [phone] [facility] COMPREHE NSIVE METABOLI C PANEL CREATININE [...] Dec 14, 2023 12:09 PM Reporting Lab: [place] [phone] Performing Lab: [place] [phone] [place] [address] COMPREHE NSIVE METABOLI C PANEL CARBON DIOXIDE, [...] Dec 14, 2023 12:09 PM Reporting Lab: [place] [phone] Performing Lab: [place] [phone] [place] [address] COMPREH NSIVE METABOLI C PANEL GLUCOSE [MASS/VOLU ME] [...] Dec 14, 2023 12:09 PM Reporting Lab: [place] [phone] Performing Lab: [place] [phone] [place] [address] COMPREHE NSIVE METABOLI C PANEL PROTEIN [MASS/VOLU [...] 2023 12:09 PM Reporting Lab: [place] [address] Performing Lab: [address] COMPREHE NSIVE METABOLI C PANEL SODIUM [MOLES/VOL [...] Dec 14, 2023 12:09 PM Reporting Lab: [place] [phone] Performing Lab: [address] COMPREHE NSIVE METABOLI C PANEL CHLORIDE [...] Dec 14, 2023 12:09 PM Reporting Lab: [address] [phone] Performing Lab: [place] [phone] [facility] COMPREHE NSIVE METABOLI C PANEL BILIRUBIN. TOTAL [...] Dec 14, 2023 12:09 PM Reporting Lab: [place] [phone] Performing Lab: [place] [phone] [facility] COMPREHE NSIVE METABOLI C PANEL POTASSIUM [...] Dec 14, 2023 12:09 PM Reporting Lab: [place] [phone] Performing Lab: [place] [phone] [facility] COMPREHE NSIVE METABOLI C PANEL ANION [...] Dec 14, 2023 12:09 PM Reporting Lab: [place] [phone] Performing Lab: [place] [phone] [facility] COMPREHE NSIVE METABOLI C PANEL GLOMERULAR [...] Dec 14, 2023 12:09 PM Reporting Lab: [place] [phone] Performing Lab: [place] [phone] [facility] CBC LEUKOCYTES [#/VOLUME] IN BLOOD BY AUTOMATED COUNT 6.3 10*3/uL 3.6 - 11.0 06/02 Specimen Type: BLOOD Comment: Giant or Large Platelets noted on Automated CBC. Ordering Provider: MELA GRIFFIN CCA A Report Released Date/Time: Dec 14, 2023 12:09 PM Reporting Lab: [place] [phone] Performing Lab: [place] [phone] [facility] CBC ERYTHROCYT ES [#/VOLUME] IN BLOOD BY AUTOMATED COUNT 5.13 10*6/uL 4.47 - 5.83 06/02 Specimen Type: BLOOD Comment: Giant or Large Platelets noted on Automated CBC. Ordering Provider: MELA GRIFFIN CCA A Report Released Date/Time: Dec 14, 2023 12:09 PM Reporting Lab: [place] [phone] Performing Lab: [place] [phone] [facility] CBC HEMOGLOBIN [MASS/VOLU ME] IN BLOOD 11.4 g/dL 13.6 - 17.4 06/02 L Specimen Type: BLOOD Comment: Giant or Large Platelets noted on Automated CBC. Ordering Provider: MELA GRIFFIN CCA Report Released Date/Time: Dec 14, 2023 12:09 PM Reporting Lab: [place] [phone] Performing Lab: [place] [phone] [place] [address] CBC HEMATOCRIT [VOLUME FRACTION] OF BLOOD BY AUTOMATED COUNT 36.0 40.0 - 51.0 06/02 L Specimen Type: BLOOD Comment: Giant or Large Platelets noted on Automated CBC. Ordering Provider: MELA GRIFFIN CCA Report Released Date/Time: Dec 14, 2023 12:09 PM Reporting Lab: [place] [phone] Performing Lab: [place] [phone] [place] [address] CBC MCV [ENTITIC VOLUME] BY AUTOMATED COUNT 70.1 fL 80.0 - 96.0 06/02 L Specimen Type: BLOOD Comment: Giant or Large Platelets noted on Automated CBC. Ordering Provider: MELA GRIFFIN CCA Report Released Date/Time: Dec 14, 2023 12:09 PM Reporting Lab: [place] [phone] Performing Lab: [place] [phone] [place] [address] CBC MCH [ENTITIC MASS] BY AUTOMATED COUNT 22.2 pg 27.0 - 31.0 06/02 L Specimen Type: BLOOD Comment: Giant or Large Platelets noted on Automated CBC. Ordering Provider: MELA GRIFFIN CCA Report Released Date/Time: Dec 14, 2023 12:09 PM Reporting Lab: [place] [phone] Performing Lab: [place] [phone] [facility] CBC MCHC [MASS/VOLU ME] BY AUTOMATED COUNT 31.7 g/dL 31.5 - 36.5 06/02 Specimen Type: BLOOD Comment: Giant or Large Platelets noted on Automated CBC. Ordering Provider: MELA GRIFFIN CCA A Report Released Date/Time: Dec 14, 2023 12:09 PM Reporting Lab: [place] [phone] Performing Lab: [place] [phone] [place] [address] CBC PLATELETS [#/VOLUME] IN BLOOD BY AUTOMATED COUNT 183 10*3/uL 150 - 400 06/02 Specimen Type: BLOOD Comment: Giant or Large Platelets noted on Automated CBC. Ordering Provider: MELA GRIFFIN CCA A Report Released Date/Time: Dec 14, 2023 12:09 PM Reporting Lab: [place] [phone] Performing Lab: [place] [phone] [place] [address] CBC LYMPHOCYTE S/100 LEUKOCYTES IN BLOOD BY AUTOMATED COUNT 19.3 21.0 - 51.0 06/02 L Specimen Type: BLOOD Comment: Giant or Large Platelets noted on Automated CBC. Ordering Provider: MELA GRIFFIN CCA A Report Released Date/Time: Dec 14, 2023 12:09 PM Reporting Lab: [place] [phone] Performing Lab: [place] [phone] CBC MONOCYTES/ 100 LEUKOCYTES IN BLOOD BY AUTOMATED COUNT 9.3 4.0 - 8.0 06/02 H Specimen Type: BLOOD Comment: Giant or Large Platelets noted on Automated CBC. Ordering Provider: MELA GRIFFIN CCA A Report Released Date/Time: Dec 14, 2023 12:09 PM Reporting Lab: [address] [phone] Performing Lab: [place] [phone] [place] [address] CBC NUCLEATED ERYTHROCYT ES/100 LEUKOCYTES [RATIO] IN BLOOD BY MANUAL COUNT 0.1 /100{WBC s} 06/02 Specimen Type: BLOOD Comment: Giant or Large Platelets noted on Automated CBC. Ordering Provider: MELA GRIFFIN CCA A Report Released Date/Time: Dec 14, 2023 12:09 PM Reporting Lab: [place] [phone] Performing Lab: [place] [phone] [facility] CBC ERYTHROCYT E DISTRIBUTI ON WIDTH [RATIO] BY AUTOMATED COUNT 19.0 11.2 - 15.8 06/02 H Specimen Type: BLOOD Comment: Giant or Large Platelets noted on Automated CBC. Ordering Provider: MELA GRIFFIN CCA Report Released Date/Time: Dec 14, 2023 12:09 PM Reporting Lab: [place] [phone] Performing Lab: [place] [phone] CBC NEUTROPHIL S/100 LEUKOCYTES IN BLOOD BY AUTOMATED COUNT 67.7 54.0 - 78.0 06/02 Specimen Type: BLOOD Comment: Giant or Large Platelets noted on Automated CBC. Ordering Provider: MELA GRIFFIN CCA Report Released Date/Time: Dec 14, 2023 12:09 PM Reporting Lab: [place] [phone] Performing Lab: [place] [phone] CBC EOSINOPHIL S/100 LEUKOCYTES IN BLOOD BY AUTOMATED COUNT 2.7 0.0 - 3.0 06/02 Specimen Type: BLOOD Comment: Giant or Large Platelets noted on Automated CBC. Ordering Provider: MELA GRIFFIN CCA Report Released Date/Time: Dec 14, 2023 12:09 PM Reporting Lab: [place] [phone] Performing Lab: [place] [phone] CBC BASOPHILS/ 100 LEUKOCYTES IN BLOOD BY AUTOMATED COUNT 1.0 0.0 - 3.0 06/02 Specimen Type: BLOOD Comment: Giant or Large Platelets noted on Automated CBC. Ordering Provider: MELA GRIFFIN CCA A Report Released Date/Time: Dec 14, 2023 12:09 PM Reporting Lab: [place] [phone] Performing Lab: [place] [phone] [place] [address] CBC LYMPHOCYTE S [#/VOLUME] IN BLOOD BY AUTOMATED COUNT 1.2 10*3/uL 0.8 - 5.0 06/02 Specimen Type: BLOOD Comment: Giant or Large Platelets noted on Automated CBC. Ordering Provider: MELA GRIFFIN CCA A Report Released Date/Time: Dec 14, 2023 12:09 PM Reporting Lab: [place] [phone] Performing Lab: [place] [phone] [facility] CBC NEUTROPHIL S [#/VOLUME] IN BLOOD 4.3 10*3/uL 1.9 - 8.6 06/02 Specimen Type: BLOOD Comment: Giant or Large Platelets noted on Automated CBC. Ordering Provider: MELA GRIFFIN CCA A Report Released Date/Time: Dec 14, 2023 12:09 PM Reporting Lab: [place] [phone] Performing Lab: [place] [phone] CBC BASOPHILS [#/VOLUME] IN BLOOD BY AUTOMATED COUNT 0.1 10*3/uL 0.0 - 0.3 06/02 Specimen Type: BLOOD Comment: Giant or Large Platelets noted on Automated CBC. Ordering Provider: MELA GRIFFIN CCA A Report Released Date/Time: Dec 14, 2023 12:09 PM Reporting Lab: [place] [phone] Performing Lab: [place] [phone] CBC MONOCYTES [#/VOLUME] IN BLOOD BY AUTOMATED COUNT 0.6 10*3/uL 0.1 - 0.9 06/02 Specimen Type: BLOOD Comment: Giant or Large Platelets noted on Automated CBC. Ordering Provider: MELA GRIFFIN CCA A Report Released Date/Time: Dec 14, 2023 12:09 PM Reporting Lab: [place] [phone] Performing Lab: [place] [phone] CBC EOSINOPHIL S [#/VOLUME] IN BLOOD BY AUTOMATED COUNT 0.2 10*3/uL 0.0 - 0.3 06/02 Specimen Type: BLOOD Comment: Giant or Large Platelets noted on Automated CBC. Ordering Provider: MELA GRIFFIN CCA A Report Released Date/Time: Dec 14, 2023 12:09 PM Reporting Lab: [address] [phone] Performing Lab: [address] [phone] [facility] CBC PLATELET MEAN VOLUME [ENTITIC VOLUME] IN BLOOD BY AUTOMATED COUNT 10.7 fL 7.4 - 11.4 06/02 Specimen Type: BLOOD Comment: Giant or Large Platelets noted on Automated CBC. Ordering Provider: MELA GRIFFIN CCA Report Released Date/Time: Dec 14, 2023 12:09 PM Reporting Lab: [address] [phone] Performing Lab: [address] [phone] [facility] Vital Signs Combined list of inpatient and outpatient Vital Signs from Department of Defense and Veterans Affairs, ranging from 12 months to all on record, depending upon the facility. Vital Sign Value Date Comments Source SYSTOLIC BLOOD PRESSURE 102 10/12/2024 09:48:47 [facility] DIASTOLIC BLOOD PRESSURE 60 10/12/2024 09:48:47 [facility] PULSE OXIMETRY 93 % 10/12/2024 09:48:47 [facility] WEIGHT 154.9 10/12/2024 09:48:47 [facility] BMI 24 kg/m2 10/12/2024 09:48:47 [facility] PAIN 0 10/12/2024 09:48:47 [facility] TEMPERATURE 97.2 10/12/2024 09:48:47 [facility] PULSE 75 10/12/2024 09:48:47 [facility] RESPIRATION 18 10/12/2024 09:48:47 [facility] SYSTOLIC BLOOD PRESSURE 126 06/21/2024 10:34:38 [facility] DIASTOLIC BLOOD PRESSURE 69 06/21/2024 10:34:38 [facility] PULSE OXIMETRY 97 06/21/2024 10:34:38 [facility] WEIGHT 156 06/21/2024 10:34:38 [facility] BMI 24 kg/m2 06/21/2024 10:34:38 [facility] PAIN 0 06/21/2024 10:34:38 [facility] TEMPERATURE 97.8 06/21/2024 10:34:38 [facility] PULSE 58 06/21/2024 10:34:38 [facility] RESPIRATION 16 06/21/2024 10:34:38 [facility] SYSTOLIC BLOOD PRESSURE 120 06/02/2024 10:52:[address] [facility] DIASTOLIC BLOOD PRESSURE 61 06/02/2024 10:52:[address] [facility] PULSE OXIMETRY 98 06/02/2024 10:52:57 [facility] WEIGHT 155 06/02/2024 10:52:57 [facility] BMI 24 kg/m2 06/02/2024 10:52:57 [facility] PAIN 0 06/02/2024 10:52:57 [facility] HEIGHT 67 06/02/2024 10:52:57 [facility] TEMPERATURE 97.4 06/02/2024 10:52:57 [facility] PULSE 73 06/02/2024 10:52:57 [facility] RESPIRATION 16 06/02/2024 10:52:57 [facility] SYSTOLIC BLOOD PRESSURE 139 03/21/2024 11:33:[address] [facility] DIASTOLIC BLOOD PRESSURE 63 03/21/2024 11:33:21 [facility] PULSE OXIMETRY 95 03/21/2024 11:33:21 [facility] WEIGHT 157 03/21/2024 11:33:21 [facility] BMI 25 kg/m2 03/21/2024 11:33:21 [facility] PAIN 0 03/21/2024 11:33:21 [facility] HEIGHT 67 03/21/2024 11:33:21 [facility] TEMPERATURE 96.5 03/21/2024 11:33:21 [facility] PULSE 69 03/21/2024 11:33:21 [facility] RESPIRATION 16 03/21/2024 11:33:21 [facility] SYSTOLIC BLOOD PRESSURE 111 12/14/2023 11:36:[address] [facility] DIASTOLIC BLOOD PRESSURE 64 12/14/2023 11:36:54 [facility] PULSE OXIMETRY 95 12/14/2023 11:36:54 [facility] WEIGHT 167 12/14/2023 11:36:54 [facility] BMI 26 kg/m2 12/14/2023 11:36:54 [facility] PAIN 0 12/14/2023 11:36:54 [facility] TEMPERATURE 98.3 12/14/2023 11:36:54 [facility] PULSE 65 12/14/2023 11:36:54 [facility] RESPIRATION 16 12/14/2023 11:36:54 [facility] Encounters Combined list of: 1) Encounters from Department of [facility] facilities going backup to the last 18 months, not all [place] inpatient encounters are included; 2) Encounters from the Department of [facility] facilities going backup to 280 months. 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 ropNATANAEL Mason 06/02 [facility] Outpatient Encounter [id number] 06/07 [facility] MTMS BY PHARM EST 15 MIN [id number] Diagnos is: ICD-10- CM Z51.81 Encount er for therape utic drug level monitor MIGDALIA Brenner 06/08 [facility] PSYTX W PT 30 MINUTES [id number] Diagnos is: ICD-10- CM F32.A Depress ion, unspeci fied [place] XIONG 06/09 [place] [facility] MOD 30 MIN [id number] Diagnos is: ICD-10- CM N40.1 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 REJI GRIFFIN ECCA A 06/13 [facility] MTMS BY PHARM ADDL 15 MIN [id number] Diagnos is: ICD-10- CM F43.10 Post-tr aumatic stress disorde r, unspeci skyler MEREDITHR LESLIE J 06/13 [facility] OFF[facility] O/P EST LOW 20 MIN [id number] Diagnos is: ICD-10- CM H61.22 Impacte d cerumen , left ear ELIASREJI ECCA A 06/24 [facility] OFFICE O/P EST LOW 20 MIN [id number] Diagnos is: ICD-10- CM L57.0 Actinic keratos is ROBERTO VICKERS A 06/29 [facility] ADDL 15 MIN [id number] Diagnos is: ICD-10- CM F43.10 Post-tr aumatic stress disorde r, unspeci skyler MEREDITHR LESLIE J 07/05 [facility] OFF[facility] O/P EST LOW 20 MIN [id number] Diagnos is: ICD-10- CM H61.22 Impacte d cerumen , left ear ELIASREJI ECCA A 07/08 [place] [facility] Outpatient Encounter [id number] 07/12 [facility] [place] En[place] [id number] Halima DIAZ 07/29 [facility] MTMS BY PHARM ADDL 15 MIN [id number] Diagnos is: ICD-10- CM F43.10 Post-tr aumatic stress disorde r, unspeci skyler MEREDITHR LESLIE J 08/17 [facility] PSYTX W PT 30 MINUTES [id number] [id number] Diagnos is: ICD-10- CM F32.A Depress ion, unspeci fied CAROLIN XIONG L 09/02 [facility] OFFICE O/P EST LOW 20 MIN [id number] [id number] Diagnos is: ICD-10- CM E11.40 Type 2 diabete s mellitu s with diabeti c neuropa thy, unsp STOIBER,NATANAEL NNIFER 09/08 [facility] MTMS BY PHARM EST 15 MIN [id number] [id number] Diagnos is: ICD-10- CM F43.10 Post-tr aumatic stress disorde r, unspeci skyler EMREDITH,R LESLIE J 09/30 [facility] ORTHOTIC MGMT&TRAIN G 1ST ENC [id number] [id number] Diagnos is: ICD-10- CM E11.9 Type 2 diabete s mellitu s without complic ations [facility] TONYA KNOX M 10/06 [facility] IMMUNIZATI [facility] ADMIN [id number] [id number] Diagnos is: ICD-10- CM Z23 Encount er for immuniz ation Halima DIAZ C 11/10 [facility] ORTHOTIC MGMT&TRAIN G 1ST ENC [id number] [id number] Diagnos is: ICD-10- CM E11.9 Type 2 diabete s mellitu s without complic ations [facility] TONYA KNOX M 11/10 [facility] OFFICE O/P EST MOD 30 MIN [id number] [id number] Diagnos is: ICD-10- CM Z12.83 Encount er for screeni ng for maligna nt neoplas m of skin LINDSEY,DOMINIC 11/23 [facility] PSYTX W PT 30 MINUTES [id number] [id number] Diagnos is: ICD-10- CM F32.A Depress ion, unspeci fied [facility]IN XIONG 12/06 [facility] Outpatient Encounter [id number] 12/13 [facility] OFFICE O/P EST MOD 30 MIN [id number] [id number] Diagnos is: ICD-10- CM N40.1 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 ELIAS,REJI ECCA A 12/13 [facility] OFFICE O/P EST MOD 30 MIN [id number] [id number] Diagnos is: ICD-10- CM E11.9 Type 2 diabete s mellitu s without complic ations AISHA COTTON 12/13 [facility] MTMS BY PHARM ADDL 15 MIN [id number] [id number] Diagnos is: ICD-10- CM F43.10 Post-tr aumatic stress disorde r, unspeci fied VIRI,R LESLIE J 12/13 [facility] OFFICE O/P EST LOW 20 MIN [id number] [id number] Diagnos is: ICD-10- CM 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 ropNATANAEL Mason 12/13 [facility] Outpatient Encounter [id number] 12/14 [facility] [place] [facility] [id number] 12/16 [facility] Outpatient Encounter [id number] CASEY FOSTER 12/22 [facility] VISIT TO DETERM LDCT ELIG [id number] Diagnos is: ICD-10- CM F17.210 Nicotin e depende nce, cigaret james, uncompl icated Ha BISHOP RISTEN 12/27 [facility] MTMS BY PHARM ADDL 15 MIN [id number] [id number] Diagnos is: ICD-10- CM F43.10 Post-tr aumatic stress disorde r, unspeci fied VIRI,R LESLIE J 01/31 [facility] OFF[facility] O/P EST LOW 20 MIN [id number] [id number] Diagnos is: ICD-10- CM 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, unspeci fied NATANAEL LOUISE 03/21 [facility] 15 MIN [id number] [id number] Diagnos is: ICD-10- CM F43.10 Post-tr aumatic stress disorde r, unspeci fied VIRI,R LESLIE J 03/21 [place] [facility] Outpatient Encounter [id number] 03/22 [facility] [place] En[place] [id number] 03/22 [facility] Outpatient Encounter [id number] 04/04 [facility] Outpatient Encounter [id number] 04/05 [facility] NQHP OL DIG ASSMT&MGMT 5-10 [id number] Diagnos is: ICD-10- CM Z51.81 Encount er for therape utic drug level monitor AISHA Rojo A 04/05 [facility] [place] TTE W/DOPPLER COMPLETE [id number] Diagnos is: ICD-10- CM I50.32 Chronic diastol ic (conges tive) heart failure SUNIL FLETCHER 04/06 [facility] [place] En[place] [id number] 04/11 [facility] MTMS BY PHARM ADDL 15 MIN 08161-5.54 [id number] Diagnos is: ICD-10- CM F43.10 Post-tr aumatic stress disorde r, unspeci fied WILLXAVIER,R LESLIE J 04/18 [facility] Outpatient Encounter [id number] 04/25 [facility] [place] En[place] [id number] 05/03 [facility] MTMS BY PHARM ADDL 15 MIN [id number] [id number] Diagnos is: ICD-10- CM F43.10 Post-tr aumatic stress disorde r, unspeci fied VIRI,R LESLIE J 06/02 [facility] OFF/OP EST MAY X REQ PHY/QHP [id number] [id number] Diagnos is: ICD-10- CM R42 Dizzine ss and giddine ss RANDELL GOMEZ A 06/02 [facility] Outpatient Encounter [id number] 06/21 [facility] OFFICE O/P EST MOD 30 MIN 31808-4.54 [id number] Diagnos is: ICD-10- CM I50.32 Chronic diastol ic (conges tive) heart failure REJI GRIFFIN A 06/21 [facility] OFF[facility] O/P EST LOW 20 MIN [id number] [id number] Diagnos is: ICD-10- CM 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 ropathy STOIBER,JE NNIFER 06[facility] [id number] 06/28 [facility] [place] En[place] [id number] 06/29 [facility] MTMS BY PHARM ADDL 15 MIN 59907-0.54 [id number] Diagnos is: ICD-10- CM F43.10 Post-tr aumatic stress disorde r, unspeci fiMorro Barrett LESLIE J 07/26 [facility] MTMS BY PHARM ADDL 15 MIN [id number] [id number] Diagnos is: ICD-10- CM F43.10 Post-tr aumatic stress disorde r, unspeci Morro Ortega LESLIE J 09[facility] Out[facility] Encounter [id number] 09/22 [facility] OFFICE O/P EST MOD 30 MIN 59659-9.54 [id number] Diagnos is: ICD-10- CM I50.32 Chronic diastol ic (conges tive) heart failure TYRON BAKER 10/12 [facility] Social History Combined list of available smoking, tobacco, and other social history from [facility] and [facility] facilities. Social History Type Response Date Comment Sourc e Tobacco smoking status VAIS VA-TOBACCO NEVER USED OTHER TYPE 06/02/2024 [facility] [...] CURRENT USER 06/12/2015 1/2 pack a day [facility] History of tobacco use CURRENT TOBACCO USER 03/27/2014 [facility] History of tobacco use CURRENT TOBACCO USER 04/24/2013 [facility] History of tobacco use CURRENT TOBACCO USER [...] List of future care activities from Department [facility] facilities. Additional future care activities may be listed in the Assessment and Plan section. Date/Time Care Activity Care Activity Detail Facili ty 10/12/2024 AMBULATORY - MEDICINE AMBULATORY - MEDICI [facility] Advance Directives List of completed, amended, or rescinded Advance Directives on record at [facility] facilities. An actual copy of the Directive is not included. Date Advance Directive Provider Source 05/03/2019 ADVANCE DIRECTIVE DISCUSSION DEN DE LUNA [facility] 12/28/2012 ADVANCE DIRECTIVE CRISTI RAE [facility] 12/28/2012 ADVANCE DIRECTIVE DISCUSSION VIDAL RAE [facility] 12/28/2012 RESCINDED ADVANCE DIRECTIVE DONALD RAE [facility] 06/18/2009 ADVANCE DIRECTIVE DISCUSSION FERNY PASTRANA [facility]
[2024-10-12] MEDS: POTASSIUM CHLORIDE 10 MEQ ER TABLET 40 MEQ PO (16:11)
[2024-10-12] MEDS: POTASSIUM CHLORIDE IN WATER 10 MEQ/100 ML PREMIX 100 MEQ IV ×2 (16:12→18:43)
[2024-10-12] MEDS: MAGNESIUM OXIDE 400 MG TABLET PO (16:36)
[2024-10-12 18:04] LABS: Anion Gap 9.9; Blood Urea Nitrogen 6.0 mg/dL (7.0-18.0); Calcium 8.4 mg/dL (8.5-10.1); Carbon Dioxide 30.2 mmol/L (21.0-32.0); Chloride 107 mmol/L (98-107); Estimated GFR (African America >60 (>=60 mL/min/1.73m^2); Estimated GFR (Non-African Ame >60 (>=60 mL/min/1.73m^2); Glucose 114 mg/dL (74-106); Magnesium 1.7 mg/dL (1.8-2.4); Sodium 145 mmol/L (136-145)
[2024-10-12 18:31] LABS: Potassium 2.1 mmol/L (3.5-5.1)
--- OUTSIDE RECORDS SUMMARY | 2024-10-12 21:08 | XMS_ITS | Clinical Summary ---
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 0 [...] Department Care Team Description 10/02/2024 Orders Only [facility] [address] [facility] [place] [address] Rosemary Calvin MA Bilateral carotid artery stenosis (Primary Dx) 09/27/2024 Telephone [facility] [address] [facility] [place] [address] Kylah Doyle MA 09/19/2024 Orders Only [facility] [address] [facility] [place] [address] ProviderShawn MD 09/13/2024 Orders Only [facility] [address] [facility] [place] [address] ProviderShawn MD 08/15/2024 2:40 PM EDT Office Visit [facility] [address] [facility] [place] [address] Cecilia Guzmán CNP Chronic diastolic heart failure (CMS/HCC) (Primary Dx); Carotid stenosis, asymptomatic, bilateral 07/13/2024 11:30 AM EDT Office Visit [facility] [address] [facility] [place] [address] Thania Cabral MD Claudication (Primary Dx); 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
--- OUTSIDE RECORDS SUMMARY | 2024-10-12 21:08 | XMS_ITS | Encounter Summary ---
Author Organization [facility] Address [address] [place] [address] Care Team Providers Care Spinner Concrete Pipe Name Role Phone Sue Machado-Mariola Primary Care Provider [phone] Reason for Referral * Imaging (Routine) - Pending Review Specialty Diagnoses / Procedures Referred By Conttirso t Referred To Contact Radiology Diagnoses Bilateral carotid artery stenosis Procedures CTA Neck W IV Contrast Thania Cabral MD [address] [facility] [address] [facility] [place] [address] Phone: tel: fax: Referral ID Status Reason Start Date Expiration Date V isits Requested Visits Authorized [id number] Pending Review 10/02/2024 10/02/2025 1 1 Encounter Details Date Type Department Care Team (Late st Contact Info) Description 10/02/2024 Orders Only [facility] [address] [place] [address] Rosemary Calvin MA Bilateral carotid artery stenosis [...] Description 12/04/2024 1:30 PM EDT Office Visit [facility] [address] [place] [address] Thania Cabral MD [address] [facility] [place] [address] Scheduled Orders Name Type Priority Associated Diagnoses [...] infarction documented in this encounter Care Teams Spinner Concrete Pipe Relationship Specialty Start Date End Date Sue Machado FNP-C [address] [place] [address] PCP - General Nurse Practitioner 08/14/24 documented as of this encounter
--- OUTSIDE RECORDS SUMMARY | 2024-10-12 21:08 | XMS_ITS | Clinical Summary ---
Author Organization [facility] Address [address] [place] [address] Care Team Providers Care As400 Consultant Name Role Phone Unavailable Primary Care Provider [...]
--- OUTSIDE RECORDS SUMMARY | 2024-10-12 21:09 | XMS_ITS | Clinical Summary ---
Author Organization [facility] Address [address] [facility] [place] [address] Care Team Providers Care Trial Management Associate Name Role Phone Unavailable Primary Care Provider Unavailabl e Source Comments The following information is NOT included in Care Everywhere downloads:Psychiatric notes, ECG results, Cardiac Rehab notes, Pulmonary Function notes, data from SmartForms (includes but not limited toPregnancy data,audiograms, eye exams, pre-surgical evaluation notes, well-child exam data).[facility] Immunizations Immunization Administration Dates Next Due Influenza, intradermal, triv alent, preservative free (IIV3) (BLB=904) 10/16/2014 Moderna Monovalent (12+ yrs) COVID-19 vaccine, mRNA, spike protein, LNP, PF, 100 mcg/0.5 mL (OFV=475) 05/08/2020,04/11/2020 Social History Tobacco Use Types Packs/Day Years Used Date Smoking Tobacco: Never Assessed Sex and Gender Information Value Date Recorded Sex Assigned at Not on file Legal Sex Male 4:29 PM EDT Gender Identity Not on file Sexual Orientation Not on file Plan of Treatment Health Maintenance Due Date Last Done Comments Hepatitis C Antibody 1964 Tdap Booster 1964 Hepatitis A (HAV) Vaccine (o ptional start 19+ years) 1965 Tetanus (Td or Tdap) Booster 1965 Pneumococcal Vaccine(s) (50+ yrs) (1 of 1 - PCV) 1996 Shingles (RZV) Vaccine (1 of 2) 1996 Annual Wellness Visit (G0438) 05/16/2006 Hepatitis B (HBV) Vaccine (o ptional start 60+ years) 2006 RSV vaccine (adult) (1 - 1-d ose 75+ series) 2021 COVID-19 Vaccine ( - 2023- season) 2023, 04/11/2020 Influenza Vaccine (#1) 2024 10/16/2014 Insurance MEDICARE
--- NOTE | 2024-10-12 21:46 | XR_ITS ---
[address] [address] Patient Name: CAROL MCPHERSON MRN: [id number] date: 1945 Sex: M Assigned Patient Location: [place] Current Patient Location: [place] Accession/Order Number: [id number] Exam Date: 10/12/2024 22:10 Report Date: 10/13/2024 00:54 At the request of: URIEL DICKEY MD Procedure: XR chest 1V XR chest 1V 10/12/2024 10:17 PM SIGNS AND SYMPTOMS: ^COugh PROTOCOL: Frontal radiograph of the chest COMPARISON: 05/18/2018 FINDINGS: The trachea is midline. Sternotomy wires overlie the mediastinum. There is cardiomegaly. There is interstitial prominence with perihilar vascular prominence. Mild hazy airspace opacities are present. The bony thorax is intact. XR/XR chest 1V IMPRESSION: Findings suggest congestive heart failure. Impression dictated by: Sreedhar Bhandari M.D. 10/13/2024 12:54 AM Dictation Location: [place] [address] Electronically authenticated by: [id number] Y Date: 10/13/2024 00:54
[2024-10-12] MEDS: POTASSIUM CHLORIDE 10 MEQ ER TABLET 20 MEQ PO (21:59)
[2024-10-12] MEDS: MAGNESIUM SULFATE IN WATER 2 GM/50 ML PREMIX IV (22:02)
[2024-10-13] VITALS (22 sets, daily range): BP systolic 137–160; BP diastolic 57–73; PULSE 67–83; TEMP 36.7–37; O2SAT 84–94
[2024-10-13 06:02] LABS: Hematocrit 31.9 % (42.0-54.0); Hemoglobin 10.3 g/dL (14.0-18.0); Immature Granulocytes Abs Auto 0.04 10^3/uL (0.00-0.03); Immature Granulocytes Pct Auto 0.5 % (0.0-0.5); Lymphocytes Absolute Auto 1.5 10^3/uL (1.2-3.8); Mean Corpuscular HGB Conc 32.3 g/dL (29.9-35.2); Mean Corpuscular Hemoglobin 23.0 pg (25.9-34.0); Mean Corpuscular Volume 71.2 fL (80.0-94.0); Platelet Count 219 10^3/uL (150-450); Red Blood Count 4.48 10^6/uL (4.70-6.10); White Blood Count 7.4 10^3/uL (4.0-11.0)
[2024-10-13 06:16] LABS: Alanine Aminotransferase 12 U/L (16-63); Albumin Globulin Ratio 0.8; Albumin Level 3.0 g/dL (3.4-5.0); Alkaline Phosphatase 94 U/L (46-116); Anion Gap 10.9; Aspartate Amino Transferase 11 U/L (15-37); Blood Urea Nitrogen 5.0 mg/dL (7.0-18.0); Calcium 8.3 mg/dL (8.5-10.1); Carbon Dioxide 30.3 mmol/L (21.0-32.0); Chloride 107 mmol/L (98-107); Estimated GFR (African America >60 (>=60 mL/min/1.73m^2); Estimated GFR (Non-African Ame >60 (>=60 mL/min/1.73m^2); Globulin 3.7 g/dL; Glucose 129 mg/dL (74-106); Magnesium 2.1 mg/dL (1.8-2.4); Sodium 146 mmol/L (136-145); Total Protein 6.7 g/dL (6.4-8.2)
[2024-10-13 06:23] LABS: Potassium 2.2 mmol/L (3.5-5.1)
[2024-10-13] MEDS: POTASSIUM CHLORIDE 10 MEQ ER TABLET 60 MEQ PO ×2 (06:42→17:39)
--- NOTE | 2024-10-13 08:00 | ECG_ITS ---
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
[2024-10-13] MEDS: POTASSIUM PHOS,M-BASIC-D-BASIC 30 MMOL in 0.9 % SODIUM CHLORIDE 250 ML 43.333 MMOL IV (08:32)
[2024-10-13] MEDS: DOCUSATE SODIUM 100 MG CAPSULE PO ×2 (08:32→21:56)
--- NOTE | 2024-10-13 09:00 | CM.NOTE ---
Rounds made with Dr. Aguila, discussed with pt reason for admission and plan of care. Pt verbalizes understanding. Clarified status pt will be inpatient status with continued telemetry monitoring and treatment.
--- NOTE | 2024-10-13 11:04 | PM.HP ---
HPI H&P: HPI History of Present Illness Chief complaint: ABNORMAL LABS SENT BY [facility], HYPOKALEMIA Narrative: Mr. Maravilla is a 79-year-old gentleman who was sent to the emergency room for an evaluation and treatment of hypokalemia. His potassium level was 2.1. Patient had received potassium in the emergency room department. Subsequently he was admitted for additional potassium and magnesium supplementation. Patient is feeling well. No chest pain. No abdominal pain. No nausea or vomiting. Opioid HPI Opioid Management Most Recent Pain and Opioid Data: Last Pain Scale 0 Today, 07:34 Last Pain Assessment 10/12/24, 22:00 Last ORT Total Score 0 10/12/24, 21:06 Last ORT Risk Category Low Risk 10/12/24, 21:06 Review of Systems ROS Status of ROS 10 or more systems reviewed and unremarkable except as noted in history and below [facility] Medical History (Updated 10/13/24 @ 11:07 by Buddy Aguila MD) halfway current use of anticoagulant ?Z79.01 - halfway (current) use of anticoagulants (ICD-10) Encounter for therapeutic drug monitoring ?Z51.81 - Encounter for therapeutic drug level monitoring (ICD-10) Callus ?L84 - Corns and callosities (ICD-10) Osteoarthritis ?M19.90 - Unspecified osteoarthritis, unspecified site (ICD-10) Onychomycosis of toenail ?B35.1 - Tinea unguium (ICD-10) Tobacco use ?Z72.0 - Tobacco use (ICD-10) Transient ischemic attack ?G45.9 - Transient cerebral ischemic attack, unspecified (ICD-10) Hyperlipidemia ?E78.5 - Hyperlipidemia, unspecified (ICD-10) Benign essential hypertension ?I10 - Essential (primary) hypertension (ICD-10) Anxiety disorder ?F41.9 - Anxiety disorder, unspecified (ICD-10) Paroxysmal atrial fibrillation ?I48.0 - Paroxysmal atrial fibrillation (ICD-10) Sensorineural hearing loss ?H90.5 - Unspecified sensorineural hearing loss (ICD-10) Noncompliance with treatment ?Z91.199 - Patient's noncompliance with other medical treatment and regimen due to unspecified reason (ICD-10) Depressive disorder ?F32.A - Depression, unspecified (ICD-10) Diabetic neuropathy ?E11.40 - Type 2 diabetes mellitus with diabetic neuropathy, unspecified (ICD-10) ESE (obstructive sleep apnea) ?G47.33 - Obstructive sleep apnea (adult) (pediatric) (ICD-10) Chronic insomnia ?F51.04 - Psychophysiologic insomnia (ICD-10) 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 - Congenital malformation of aorta unspecified (ICD-10) ?Q25.79 - Other congenital malformations of pulmonary artery (ICD-10) 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 due to asbestos and other mineral fibers (ICD-10) Vitamin D deficiency ?E55.9 - Vitamin D deficiency, unspecified (ICD-10) BPH (benign prostatic hyperplasia) ?N40.0 - Benign prostatic hyperplasia without lower urinary tract symptoms (ICD-10) CHF (congestive heart failure) ?I50.9 - Heart failure, unspecified (ICD-10) Injury of median nerve ?S54.10XA - Injury of median nerve at forearm level, unspecified arm, initial encounter (ICD-10) Disorder of sciatic nerve ?G57.00 - Lesion of sciatic nerve, unspecified lower limb (ICD-10) 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 - Lesion of femoral nerve, right lower limb (ICD-10) Paralysis of left femoral nerve ?G57.22 - Lesion of femoral nerve, left lower limb (ICD-10) Eczema ?L30.9 - Dermatitis, unspecified (ICD-10) Tinnitus ?H93.19 - Tinnitus, unspecified ear (ICD-10) PTSD (post-traumatic stress disorder) ?F43.10 - Post-traumatic stress disorder, unspecified (ICD-10) Myocardial infarct ?I21.9 - Acute myocardial infarction, unspecified (ICD-10) High cholesterol ?E78.00 - Pure hypercholesterolemia, unspecified (ICD-10) Surgical History (Updated 10/12/24 @ 20:01 by Bridget Gotti RN) 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 Smoking status: Current every day smoker Non-prescribed substance use: denies use Previous occupational history: retired Highest level of school completed/degree received: Bachelor's degree Are you now , , , , never or living with a partner: In a typical week, how many times do you talk on the telephone with family, friends, or neighbors: 3 or more times per week How often do you get together with friends or relatives: 3 or more times per week How often do you attend druze or evangelical services: 4 or more times per year Little interest or pleasure in doing things: not at all Feeling down, depressed, or hopeless: not at all Feel stressed/tense/nervous/anxious/difficulty sleeping: not at all Do you think of yourself as: straight/heterosexual Gender Identity: male Meds Home Medications and Allergies Home Medications ?Medication ?Instructions ?Recorded ?Confirmed ?Type amitriptyline 25 mg tablet 25 mg PO DAILY PRN sleep 10/12/24 10/12/24 History apixaban 5 mg tablet (Eliquis) 5 mg PO BID 10/12/24 10/12/24 History aspirin 81 mg capsule 81 mg PO DAILY 10/12/24 10/12/24 History empagliflozin 25 mg tablet 25 mg PO DAILY 10/12/24 10/12/24 History (Jardiance) furosemide 40 mg tablet 40 mg PO QDAY 10/12/24 10/12/24 History isosorbide mononitrate 120 mg 120 mg PO BID 10/12/24 10/12/24 History tablet,extended release 24 hr lisinopril 5 mg tablet 5 mg PO DAILY 10/12/24 10/12/24 History metformin 500 mg tablet 500 mg PO DAILY 10/12/24 10/12/24 History metoprolol tartrate 25 mg tablet 25 mg PO BID 10/12/24 10/12/24 History mirtazapine 15 mg tablet 15 mg PO BEDTIME 10/12/24 10/12/24 History nicotine 14 mg/24 hr daily 1 patch transdermal DAILY 10/12/24 10/12/24 History transdermal patch (Nicoderm CQ) pantoprazole 20 mg tablet,delayed 20 mg PO DAILY 10/12/24 10/12/24 History release ranolazine 500 mg tablet,extended 500 mg PO BID 10/12/24 History release,12 hr rosuvastatin 40 mg tablet 40 mg PO DAILY 10/12/24 10/12/24 History sertraline 50 mg tablet 50 mg PO QDAY 10/12/24 10/12/24 History spironolactone 25 mg tablet 25 mg PO DAILY 10/12/24 10/12/24 History tamsulosin 0.4 mg capsule 0.4 mg PO BEDTIME 10/12/24 10/12/24 History Allergies Allergy/AdvReac Type Severity Reaction Status Date / Time No Known Drug Allergies Allergy Verified 10/12/24 14:44 Exam Narrative Exam Narrative: [pt is awake and alert. oriented to place, time and person, cachectic and frail in appearance. HEENT: [place] conjunctiva and NL buccal mucosa Neck: Supple, no tenderness Endocrine: No Thyromegaly. Vascular: No JVD or carotid bruit. Lymphatic: No cervical lymphadenopathy. Chest: CTA no DTP. Heart RRR, no extra sound or murmur. Abd: Soft, no tenderness, no rebound and no rigidity. Increase abd girth therefore clinically I could not exclude the possibility of intra abd mass or organomegaly. LE: No cyanosis or clubbing, no varices or edema. Upper and lower extremities muscle wasting atrophy Neuro: A A O. Nl speech, comprehension and attention. Nl and symetrical motor and tone examination through out. []] Constitutional Vital Signs, click to edit/add: Last Vital Signs Temp 98.0 F 10/13/24 07:34 Pulse 71 10/13/24 10:17 Resp 18 10/13/24 07:34 BP 137/72 10/13/24 07:34 Pulse Ox 91 L 10/13/24 07:34 O2 Del Method Nasal Cannula 10/13/24 07:34 O2 Flow Rate 2 10/13/24 07:34 Results Labs Labs: Short CBC 10/12/24 10/13/24 Range/Units 15:25 05:18 WBC 7.1 7.4 (4.0-11.0) 10^3/uL Hgb 10.7 L 10.3 L (14.0-18.0) g/dL Hct 33.0 L 31.9 L (42.0-54.0) % Plt Count 231 219 (150-450) 10^3/uL BMP 10/12/24 10/12/24 10/13/24 15:25 17:49 05:18 Sodium 144 145 146 H Potassium 1.9 L* 2.1 L* 2.2 L* Chloride 105 107 107 Carbon Dioxide 31.0 30.2 30.3 BUN 6.0 L 6.0 L 5.0 L Creatinine 0.97 0.89 0.71 Glucose 142 H 114 H 129 H Calcium 8.4 L 8.4 L 8.3 L Liver Function 10/13/24 Range/Units 05:18 Total Bilirubin 0.4 (0.2-1.0) mg/dL AST 11 L (15-37) U/L ALT 12 L (16-63) U/L Alkaline Phosphatase 94 (46-116) U/L Albumin 3.0 L (3.4-5.0) g/dL Assessment and Plan Assessment and Plan (1) Hypokalemia: (2) Hypomagnesemia: (3) Hypophosphatemia: (4) Tobacco abuse counseling: (5) Tobacco abuse: (6) Carotid stenosis: (7) Type 2 diabetes mellitus: (8) Coronary atherosclerosis: (9) Afib: (10) Hypertension: Plan Hypokalemia despite potassium replacement in the emergency room department prompting the decision to admit him as an inpatient for additional cardiac monitoring and the potassium supplementation. Additional oral and intravenous potassium supplementation Hypomagnesemia and hypophosphatemia Additional magnesium and phosphate supplementation. Diabetes Resume preadmission home medication Tobacco addiction Counseling and education to quit smoking. Increased risk of lung cancer I recommend patient to have yearly low-dose radiation CAT scan of the chest to be arranged by PCP to screen for lung cancer. CAD, previous coronary artery bypass graft Continue preadmission cardiovascular medications. Cachexia, frailty, muscle wasting, failure to thrive. Could be related to COPD cachexia. Moderate protein calorie malnutrition. Recommend patient to have protein oral supplementation twice a day. Further evaluation of weight loss and cachexia to rule out underlying malignancy would need to be addressed. Could be addressed in the outpatient setting by PCP. This may include but not limited to needing to have age-appropriate cancer screening such as EGD, colonoscopy, prostate exam and others Paroxysmal A-fib Continue beta-tamica and Eliquis. Known carotid stenosis No acute stroke. Continue antiplatelets and anticoagulation at this time. Patient is to follow-up with the cardiovascular team Anemia, no evidence of acute blood loss. Patient will likely require to have anemia workup to be done in the outpatient setting to be handled by PCP in collaboration with other needed outpatient providers. This may include but not limited to EGD, colonoscopy, referral to see hematology and other needed age-appropriate cancer screening. Chronic medical conditions not listed above, incidental findings seen on labs and imaging. These would need to be addressed. Could be addressed when time and condition are appropriate. Could be addressed in the outpatient setting by PCP collaboration with other needed outpatient providers.
[2024-10-13] MEDS: APIXABAN 5 MG TABLET PO ×2 (12:01→21:54)
[2024-10-13] MEDS: ASPIRIN 81 MG TABLET.DR PO (12:01)
[2024-10-13] MEDS: METOPROLOL TARTRATE 25 MG TABLET PO ×2 (12:01→21:54)
[2024-10-13] MEDS: SERTRALINE HCL 50 MG TABLET PO (12:01)
[2024-10-13] MEDS: METFORMIN HCL 500 MG TABLET PO (12:01)
[2024-10-13 16:20] LABS: Potassium 2.9 mmol/L (3.5-5.1)
[2024-10-13] MEDS: METHYLPREDNISOLONE SOD SUCC PF 40 MG/ML VIAL IVP (17:40)
[2024-10-13] MEDS: IPRATROPIUM/ALBUTEROL SULFATE 3 ML AMPUL.NEB IH (20:00)
[2024-10-13] MEDS: MIRTAZAPINE 15 MG TABLET PO (21:54)
[2024-10-13] MEDS: TAMSULOSIN HCL 0.4 MG CAPSULE PO (21:54)
[2024-10-13] MEDS: POTASSIUM CHLORIDE 10 MEQ ER TABLET 20 MEQ PO (21:55)
[2024-10-14] VITALS (88 sets, daily range): BP systolic 88–169; BP diastolic 38–92; PULSE 55–124; RESP 14; TEMP 36.7–37.1; O2SAT 79–100
[2024-10-14] MEDS: ALPRAZOLAM 0.25 MG TABLET 0.5 MG PO (00:30)
[2024-10-14 00:59] LABS: Allen Test POSITIVE (POSITIVE); BIPAP Pressure 14/7; HCO3 ABG 24.4 mmol/L (22.0-26.0); O2 Mode BIPAP; Oxygen Saturation ABG 94.4 %; PO2 ABG 78.8 mmHg (80.0-100.0); Puncture Site RR
[2024-10-14 01:01] LABS: ABG PCO2 50.4 mmHg (35.0-45.0)
[2024-10-14] MEDS: METHYLPREDNISOLONE SOD SUCC PF 40 MG/ML VIAL 80 MG IVP (01:16)
[2024-10-14] MEDS: FUROSEMIDE 40 MG/4 ML VIAL 80 MG IVP (01:17)
--- NOTE | 2024-10-14 06:33 | PC.NURSE ---
0020 Patient is SOB and states he is struggling to breathe. Patient on 10L simple mask. 0030 Patient is given 0.5 [place] PO. Order placed for chest x-ray and BIPAP 0042 Patient placed on BIPAP. RR dropping to 22. 0048 Chest x-ray obtained. 0053 ABG obtained in the right wrist. 0059 ABG results obtained, sent to Hospitalist.
--- NOTE | 2024-10-14 06:42 | PC.NURSE ---
0341 Called daughter Tashia and updated here on patients change in condition, Son Juan called after and he was updated as well. 0344 X-ray results sent to Hospitalist. No new orders obtained. Patient still on Bipap, Settings adjusted 28/08 Rate 17 at 40%. Patient is tolerating the BIPAP well.
[2024-10-14] MEDS: PANTOPRAZOLE SODIUM 40 MG TABLET.DR PO (06:51)
[2024-10-14 07:03] LABS: Anion Gap 12.5; Blood Urea Nitrogen 8.0 mg/dL (7.0-18.0); Calcium 8.5 mg/dL (8.5-10.1); Carbon Dioxide 31.1 mmol/L (21.0-32.0); Chloride 106 mmol/L (98-107); Estimated GFR (African America >60 (>=60 mL/min/1.73m^2); Estimated GFR (Non-African Ame >60 (>=60 mL/min/1.73m^2); Glucose 200 mg/dL (74-106); Magnesium 1.7 mg/dL (1.8-2.4); Potassium 3.6 mmol/L (3.5-5.1); Sodium 146 mmol/L (136-145)
[2024-10-14] MEDS: IPRATROPIUM/ALBUTEROL SULFATE 3 ML AMPUL.NEB IH ×3 (08:04→20:03)
[2024-10-14] MEDS: LISINOPRIL 5 MG TABLET PO (08:46)
[2024-10-14] MEDS: CANAGLIFLOZIN 100 MG TABLET 300 MG PO (08:46)
[2024-10-14] MEDS: DOCUSATE SODIUM 100 MG CAPSULE PO ×2 (08:46→21:44)
[2024-10-14] MEDS: APIXABAN 5 MG TABLET PO ×2 (08:47→21:44)
[2024-10-14] MEDS: SERTRALINE HCL 50 MG TABLET PO (08:47)
[2024-10-14] MEDS: METOPROLOL TARTRATE 25 MG TABLET PO ×2 (08:47→21:44)
[2024-10-14] MEDS: ISOSORBIDE MONONITRATE 60 MG TAB.ER.24H 120 MG PO (08:47)
[2024-10-14] MEDS: SPIRONOLACTONE 25 MG TABLET PO (08:47)
[2024-10-14] MEDS: ASPIRIN 81 MG TABLET.DR PO (08:47)
[2024-10-14] MEDS: METFORMIN HCL 500 MG TABLET PO (08:47)
[2024-10-14] MEDS: MAGNESIUM SULFATE IN WATER 2 GM/50 ML PREMIX IV (08:51)
[2024-10-14] MEDS: POTASSIUM CHLORIDE 10 MEQ ER TABLET 20 MEQ PO (08:53)
[2024-10-14] MEDS: POTASSIUM PHOS,M-BASIC-D-BASIC 30 MMOL in 0.9 % SODIUM CHLORIDE 250 ML 43.333 MMOL IV (10:09)
--- NOTE | 2024-10-14 10:10 | CT_ITS ---
The [address] [address] Patient Name: CAROL MCPHERSON MRN: [id number] date: 1945 Sex: M Assigned Patient Location: MS Current Patient Location: [place] Accession/Order Number: [id number] Exam Date: 10/14/2024 10:26 Report Date: 10/14/2024 11:32 At the request of: URIEL DICKEY MD Procedure: CT chest wo con CT chest wo con 10/14/2024 10:36 AM SIGN AND SYMPTOMS: Edema, effusion, smoker, COPD, ? cancer TECHNIQUE: Multidetector CT axial slices of the chest were obtained without IV contrast. Multiplanar reformats were performed and viewed on a separate workstation and reviewed to further define anatomy and possible pathology. CT was performed with one or more of the following dose reduction techniques: Automated exposure control, adjustment of the mA and/or kV according to patient size, or use of iterative reconstruction technique. COMPARISON: None.. FINDINGS: Lower neck: Thyroid gland within normal limits, no supraclavicle adenopathy. Vessels: Atherosclerotic changes are present in the thoracic aorta, origins of the great vessels, and within the coronary arteries. Mediastinum and Bharti: Within normal limits. Heart: Normal size. No pericardial effusion. Airways: Within normal limits Lungs: There is 9 mm calcified granuloma in the left upper lobe. Emphysematous changes are present with mild interstitial prominence diffusely. There is dependent atelectasis in the lung bases. Pleura: Small bilateral pleural effusions are present. There is calcified pleural plaque at the lung bases posteriorly. Chest Wall: Within normal limits. Upper Abdomen: Within normal limits. Bones: Degenerative changes are noted in the thoracic spine. There is evidence of prior sternotomy. CT/CT chest wo con IMPRESSION: Small bilateral pleural effusions are noted with diffuse interstitial prominence suggesting congestive heart failure and interstitial edema. Mild emphysematous changes are present. Mild dependent atelectasis is noted. Calcified pleural plaque is noted posteriorly near the lung bases suggesting prior asbestos exposure. Impression dictated by: Sreedhar Bhandari M.D. 10/14/2024 11:32 AM Dictation Location: [place] [address] Electronically authenticated by: [id number] Y Date: 10/14/2024 11:32
--- NOTE | 2024-10-14 10:15 | P.PN_ITS ---
Progress Note: Subjective Subjective Interval history: Patient developed worsening shortness of breath last evening. He had hypercapnic and hypoxic respiratory failure. Chest x-ray showed pulmonary edema. Could not exclude other findings such as effusion, cancer or infiltration. No fever. Patient responded well to Solu-Medrol and Lasix intravenously. This morning the patient is off BiPAP and he is on 2 L. Exam Narrative Exam Narrative: Patient is feeling much better today. Is on nasal cannula. Is sitting in a chair ordering his breakfast. No chest pain. No abdominal pain. No nausea or vomiting. Chest exam revealed bilateral crackles. Heart is regular. Abdomen soft lower extremities no edema. Constitutional Vital Signs, click to edit/add: Last Vital Signs Temp 98.8 F 10/14/24 00:00 Pulse 64 10/14/24 09:58 Resp 13 10/14/24 08:10 BP 130/51 10/14/24 08:09 Pulse Ox 92 L 10/14/24 10:14 O2 Del Method Nasal Cannula 10/14/24 10:14 O2 Flow Rate 2 10/14/24 10:14 FiO2 30 10/14/24 05:29 Progress Note: Objective Labs Labs: [facility] 10/13/24 10/14/24 16:07 06:36 Sodium 146 H Potassium 2.9 L* 3.6 Chloride 106 Carbon Dioxide 31.1 BUN 8.0 Creatinine 0.88 Glucose 200 H Calcium 8.5 Progress Note: A&P Assessment and Plan (1) Hypokalemia: (2) Hypomagnesemia: (3) Hypophosphatemia: (4) Tobacco abuse counseling: (5) Tobacco abuse: (6) Carotid stenosis: (7) Type 2 diabetes mellitus: (8) Coronary atherosclerosis: (9) Afib: (10) Hypertension: Plan Acute on chronic hypoxic and hypercapnic respiratory failure overnight. Required use of BiPAP machine. He responded to high-dose intravenous Solu-Me drol and Lasix. I suspect that is hypoxemia is multifactorial secondary to advanced COPD. (Patient has been smoking for the last 50 years. ) As well as heart failure and interstitial edema I suspect that the patient has a chronic hypoxemia. The patient never been tested for that before. Rule out the possibility of effusion Rule out the possibility of malignancy. Less likely pneumatic infiltration. Requested CT chest Continue BiPAP at night. Continue gentle diuresis. Continue albuterol and Atrovent. Likely patient will require home oxygen prior to discharge. Requested echocardiogram as well Hypokalemia despite potassium replacement in the emergency room department prompting the decision to admit him as an inpatient for additional cardiac monitoring and the potassium supplementation. Additional oral and intravenous potassium supplementation. Hypomagnesemia and hypophosphatemia Additional magnesium and phosphate supplementation. Diabetes Resume preadmission home medication Tobacco addiction Counseling and education to quit smoking. Increased risk of lung cancer I recommend patient to have yearly low-dose radiation CAT scan of the chest to be arranged by PCP to screen for lung cancer. CAD, previous coronary artery bypass graft Continue preadmission cardiovascular medications. Cachexia, frailty, muscle wasting, failure to thrive. Could be related to COPD cachexia. Moderate protein calorie malnutrition. Recommend patient to have protein oral supplementation twice a day. Further evaluation of weight loss and cachexia to rule out underlying malignancy would need to be addressed. Could be addressed in the outpatient setting by PCP. This may include but not limited to needing to have age-appropriate cancer screening such as EGD, colonoscopy, prostate exam and others Paroxysmal A-fib Continue beta-tamica and Eliquis. Known carotid stenosis No acute stroke. Continue antiplatelets and anticoagulation at this time. Patient is to follow-up with the cardiovascular team Anemia, no evidence of acute blood loss. Patient will likely require to have anemia workup to be done in the outpatient setting to be handled by PCP in collaboration with other needed outpatient providers. This may include but not limited to EGD, colonoscopy, referral to see hematology and other needed age-appropriate cancer screening. Chronic medical conditions not listed above, incidental findings seen on labs and imaging. These would need to be addressed. Could be addressed when time and condition are appropriate. Could be addressed in the outpatient setting by PCP collaboration with other needed outpatient providers.
[2024-10-14] MEDS: FUROSEMIDE 20 MG/2 ML VIAL IVP ×3 (10:38→21:44)
--- NOTE | 2024-10-14 16:01 | RESP.RT ---
Increased to 3lpm
[2024-10-14] MEDS: POTASSIUM CHLORIDE 10 MEQ ER TABLET 40 MEQ PO (16:34)
[2024-10-14] MEDS: MIRTAZAPINE 15 MG TABLET PO (21:44)
[2024-10-14] MEDS: TAMSULOSIN HCL 0.4 MG CAPSULE PO (21:44)
[2024-10-14] MEDS: ALPRAZOLAM 0.5 MG TABLET PO (21:44)
[2024-10-15] VITALS (42 sets, daily range): BP systolic 107–138; BP diastolic 44–59; PULSE 65–88; RESP 14; TEMP 36.4–37.1; O2SAT 88–100
[2024-10-15] MEDS: PANTOPRAZOLE SODIUM 40 MG TABLET.DR PO (06:29)
[2024-10-15 06:52] LABS: Hematocrit 29.8 % (42.0-54.0); Hemoglobin 9.2 g/dL (14.0-18.0); Mean Corpuscular HGB Conc 30.9 g/dL (29.9-35.2); Mean Corpuscular Hemoglobin 22.1 pg (25.9-34.0); Mean Corpuscular Volume 71.5 fL (80.0-94.0); Platelet Count 214 10^3/uL (150-450); Red Blood Count 4.17 10^6/uL (4.70-6.10); White Blood Count 11.0 10^3/uL (4.0-11.0)
[2024-10-15 06:58] LABS: Anion Gap 13.4; Blood Urea Nitrogen 17.0 mg/dL (7.0-18.0); Calcium 8.6 mg/dL (8.5-10.1); Carbon Dioxide 27.8 mmol/L (21.0-32.0); Chloride 108 mmol/L (98-107); Estimated GFR (African America >60 (>=60 mL/min/1.73m^2); Estimated GFR (Non-African Ame >60 (>=60 mL/min/1.73m^2); Glucose 132 mg/dL (74-106); Magnesium 1.8 mg/dL (1.8-2.4); Potassium 3.2 mmol/L (3.5-5.1); Sodium 146 mmol/L (136-145)
[2024-10-15] MEDS: ISOSORBIDE MONONITRATE 60 MG TAB.ER.24H 120 MG PO (08:13)
[2024-10-15] MEDS: METFORMIN HCL 500 MG TABLET PO (08:14)
[2024-10-15] MEDS: METOPROLOL TARTRATE 25 MG TABLET PO ×2 (08:14→20:51)
[2024-10-15] MEDS: LISINOPRIL 5 MG TABLET PO (08:14)
[2024-10-15] MEDS: APIXABAN 5 MG TABLET PO ×2 (08:14→20:51)
[2024-10-15] MEDS: SERTRALINE HCL 50 MG TABLET PO (08:14)
[2024-10-15] MEDS: ASPIRIN 81 MG TABLET.DR PO (08:14)
[2024-10-15] MEDS: SPIRONOLACTONE 25 MG TABLET PO (08:14)
[2024-10-15] MEDS: CANAGLIFLOZIN 100 MG TABLET 300 MG PO (08:14)
[2024-10-15] MEDS: POTASSIUM CHLORIDE 10 MEQ ER TABLET 40 MEQ PO (08:16)
[2024-10-15] MEDS: DOCUSATE SODIUM 100 MG CAPSULE PO ×2 (08:17→20:51)
[2024-10-15] MEDS: IPRATROPIUM/ALBUTEROL SULFATE 3 ML AMPUL.NEB IH ×2 (09:31→21:08)
--- NOTE | 2024-10-15 10:02 | P.PN_ITS ---
Progress Note: Subjective Subjective Interval history: Patient had a good night. This morning patient is feeling fairly well. He continues to require 3 to 4 L of oxygen. Saturation 90% no chest pain. No abdominal pain. Exam Narrative Exam Narrative: Patient is feeling much better today as well. Is on nasal cannula. Is sitting in a bed eating his breakfast. No chest pain. No abdominal pain. No nausea or vomiting. Chest exam revealed bilateral crackles. Heart is regular. Abdomen soft lower extremities no edema. Constitutional Vital Signs, click to edit/add: Last Vital Signs Temp 97.6 F 10/15/24 07:00 Pulse 74 10/15/24 09:59 Resp 16 10/15/24 09:32 BP 127/59 10/15/24 07:27 Pulse Ox 94 L 10/15/24 09:59 O2 Del Method Room Air 10/15/24 09:32 O2 Flow Rate 3 10/15/24 07:00 FiO2 25 10/15/24 05:26 Progress Note: Objective Labs Labs: Short CBC 10/15/24 Range/Units 06:25 WBC 11.0 (4.0-11.0) 10^3/uL Hgb 9.2 L (14.0-18.0) g/dL Hct 29.8 L (42.0-54.0) % Plt Count 214 (150-450) 10^3/uL BMP 10/15/24 06:25 Sodium 146 H Potassium 3.2 L Chloride 108 H Carbon Dioxide 27.8 BUN 17.0 Creatinine 0.84 Glucose 132 H Calcium 8.6 Progress Note: A&P Assessment and Plan (1) Hypokalemia: (2) Hypomagnesemia: (3) Hypophosphatemia: (4) Tobacco abuse counseling: (5) Tobacco abuse: (6) Carotid stenosis: (7) Type 2 diabetes mellitus: (8) Coronary atherosclerosis: (9) Afib: (10) Hypertension: Plan Acute on chronic hypoxic and hypercapnic respiratory failure. Acute component had resolved. I suspect that the patient has chronic undiagnosed hypoxic respiratory failure secondary to COPD and smoking for 55 years Required use of BiPAP machine. He responded to high-dose intravenous Solu- Medrol and Lasix. I suspect that is hypoxemia is multifactorial secondary to advanced COPD. (Patient has been smoking for the last 50 years. ) As well as heart failure and interstitial edema CAT scan showed interstitial edema and small pleural effusion as well as eviden ce of emphysematous changes. Echo is pending. Convert intravenous diuretics to oral Aldactone and torsemide. Continue albuterol and Atrovent. Likely patient will require home oxygen prior to discharge. Hypokalemia despite potassium replacement in the emergency room department prompting the decision to admit him as an inpatient for additional cardiac monitoring and the potassium supplementation. Additional oral and intravenous potassium supplementation. Hypomagnesemia and hypophosphatemia Status post intravenous repletion. Diabetes Resume preadmission home medication Check A1c. Blood sugar has been ranging between 130 and 200 Tobacco addiction Counseling and education to quit smoking. Increased risk of lung cancer I recommend patient to have yearly low-dose radiation CAT scan of the chest to be arranged by PCP to screen for lung cancer. CAD, previous coronary artery bypass graft Continue preadmission cardiovascular medications. Cachexia, frailty, muscle wasting, failure to thrive. Could be related to COPD cachexia. Moderate protein calorie malnutrition. Recommend patient to have protein oral supplementation twice a day. Further evaluation of weight loss and cachexia to rule out underlying malignancy would need to be addressed. Could be addressed in the outpatient setting by PCP. This may include but not limited to needing to have age-appropriate cancer screening such as EGD, colonoscopy, prostate exam and others Paroxysmal A-fib Continue beta-tamica and Eliquis. Known carotid stenosis No acute stroke. Continue antiplatelets and anticoagulation at this time. Patient is to follow-up with the cardiovascular team Anemia, no evidence of acute blood loss. Patient will likely require to have anemia workup to be done in the outpatient setting to be handled by PCP in collaboration with other needed outpatient providers. This may include but not limited to EGD, colonoscopy, referral to see hematology and other needed age-appropriate cancer screening. Chronic medical conditions not listed above, incidental findings seen on labs and imaging. These would need to be addressed. Could be addressed when time and condition are appropriate. Could be addressed in the outpatient setting by PCP collaboration with other needed outpatient providers.
[2024-10-15] MEDS: TORSEMIDE 20 MG TABLET 10 MG PO (10:35)
[2024-10-15] MEDS: ENSURE HP 237 ML LIQUID PO ×2 (10:35→20:51)
[2024-10-15] MEDS: TAMSULOSIN HCL 0.4 MG CAPSULE PO (20:51)
[2024-10-15] MEDS: MIRTAZAPINE 15 MG TABLET PO (20:51)
[2024-10-15] MEDS: ACETAMINOPHEN 325 MG TABLET 650 MG PO (20:51)
[2024-10-15] MEDS: ALPRAZOLAM 0.5 MG TABLET PO (21:06)
[2024-10-15] MEDS: REMOVE NICOTINE PATCH 1 PATCH TOPICAL (21:07)
[2024-10-16] VITALS (16 sets, daily range): BP systolic 107–144; BP diastolic 47–55; PULSE 59–79; TEMP 36.7–36.8; O2SAT 91–98
[2024-10-16] MEDS: PANTOPRAZOLE SODIUM 40 MG TABLET.DR PO (06:33)
[2024-10-16] MEDS: ASPIRIN 81 MG TABLET.DR PO (08:30)
[2024-10-16] MEDS: LISINOPRIL 5 MG TABLET PO (08:30)
[2024-10-16] MEDS: ISOSORBIDE MONONITRATE 60 MG TAB.ER.24H 120 MG PO (08:30)
[2024-10-16] MEDS: ENSURE HP 237 ML LIQUID PO (08:30)
[2024-10-16] MEDS: CANAGLIFLOZIN 100 MG TABLET 300 MG PO (08:30)
[2024-10-16] MEDS: METFORMIN HCL 500 MG TABLET PO (08:30)
[2024-10-16] MEDS: APIXABAN 5 MG TABLET PO (08:30)
[2024-10-16] MEDS: TORSEMIDE 20 MG TABLET 10 MG PO (08:31)
[2024-10-16] MEDS: POTASSIUM CHLORIDE 10 MEQ ER TABLET 60 MEQ PO (08:31)
[2024-10-16] MEDS: SERTRALINE HCL 50 MG TABLET PO (08:31)
[2024-10-16] MEDS: DOCUSATE SODIUM 100 MG CAPSULE PO (08:31)
[2024-10-16] MEDS: SPIRONOLACTONE 25 MG TABLET PO (08:31)
[2024-10-16] MEDS: METOPROLOL TARTRATE 25 MG TABLET PO (08:33)
[2024-10-16] MEDS: IPRATROPIUM/ALBUTEROL SULFATE 3 ML AMPUL.NEB IH (09:39)
--- NOTE | 2024-10-16 10:20 | PM.DS1 ---
DS: Providers Provider Date of admission: 10/13/24 10:02 Primary care physician: Non-Staff Physician, DS: Diagnosis Discharge Diagnosis (1) Hypokalemia: (2) Hypomagnesemia: (3) Hypophosphatemia: (4) Tobacco abuse counseling: (5) Tobacco abuse: (6) Carotid stenosis: (7) Type 2 diabetes mellitus: (8) Coronary atherosclerosis: (9) Afib: (10) Hypertension: Plan As listed above, below and others that are not listed DS: Summary Hospital Course Hospital Course: Mr. Maravilla is a 79-year-old gentleman who was sent to the emergency room for an evaluation and treatment of low potassium seen on an abnormal outpatient labs. Patient was admitted and started on potassium and electrolyte supplementation. Patient developed shortness of breath. Acute on chronic hypoxic and hypercapnic respiratory failure. Resolved. COPD exacerbation, acute diastolic, probable systolic heart failure. Required use of BiPAP machine. He responded to high-dose intravenous Solu-Medrol and Lasix. I suspect that is hypoxemia is multifactorial secondary to advanced COPD. (Patient has been smoking for the last 50 years. ) As well as heart failure and interstitial edema seen on CT. CAT scan showed interstitial edema and small pleural effusion as well as evidence of emphysematous changes. Echo is pending. This would not be done due to holiday weekend. Patient wants to go home. Patient has been on room air for the last 48 hours convert intravenous diuretics to oral Aldactone and furosemide Surprisingly, patient did not qualify for oxygen. Saturation stays above 93% at rest and with exertion walking in the hallway. Patient will be discharged home on long-acting beta agonist and corticosteroid inhaler as well as short acting beta agonist as needed. Patient may need in the future to be on LAMA in addition to LABA and CSI. Patient would likely require to have PFTs to determine the severity of his COPD I would recommend patient to stop smoking and follow-up with pulmonary. PCP is to initiate referral to see Dr. George. An echocardiogram will be arranged for him. Patient will be called to come back for an echocardiogram. Meanwhile the patient is already on a combination of beta-tamica, VALENTINE inhibitor, MRA and diuretics. If echocardiogram shows a systolic dysfunction, he may qualify for additional medications such as SGLT 1. Patient is recommended to follow-up with cardiology team as well. Hypokalemia despite potassium replacement in the emergency room department prompting the decision to admit him as an inpatient for additional cardiac monitoring and the potassium supplementation. Additional oral and intravenous potassium supplementation. I instructed the patient to ask his PCP to arrange for a BMP next week to monitor his potassium level. Hypomagnesemia and hypophosphatemia Status post intravenous repletion. Diabetes Resume preadmission home medication Check A1c. Blood sugar has been ranging between 130 and 200 Tobacco addiction Counseling and education to quit smoking. Increased risk of lung cancer I recommend patient to have yearly low-dose radiation CAT scan of the chest to be arranged by PCP to screen for lung cancer. CAD, previous coronary artery bypass graft Continue preadmission cardiovascular medications. Cachexia, frailty, muscle wasting, failure to thrive. Could be related to COPD cachexia. Moderate protein calorie malnutrition. Recommend patient to have protein oral supplementation twice a day. Further evaluation of weight loss and cachexia to rule out underlying malignancy would need to be addressed. Could be addressed in the outpatient setting by PCP. This may include but not limited to needing to have age-appropriate cancer screening such as EGD, colonoscopy, prostate exam and others Paroxysmal A-fib Continue beta-tamica and Eliquis. Known carotid stenosis No acute stroke. Continue antiplatelets and anticoagulation at this time. Patient is to follow-up with the cardiovascular team Anemia, no evidence of acute blood loss. Patient will likely require to have anemia workup to be done in the outpatient setting to be handled by PCP in collaboration with other needed outpatient providers. This may include but not limited to EGD, colonoscopy, referral to see hematology and other needed age-appropriate cancer screening. Chronic medical conditions not listed above, incidental findings seen on labs and imaging. These would need to be addressed. Could be addressed when time and condition are appropriate. Could be addressed in the outpatient setting by PCP collaboration with other needed outpatient providers. Patient has multiple complex medical issues as listed above and others that are not listed. All appear to be stable. I do not have any clear or strong clinical justification to extend inpatient hospitalization. Patient however will require close and frequent monitoring as well as additional work-up, investigation and therapeutic intervention that could take place from this point on post discharge. That is to prevent relapse, decompensation, rehospitalization and other medical implications. I instructed patient to ask her primary care doctor to obtain [facility] record entirely to address abnormalities seen on labs and imaging that I have and have not addressed during this hospitalization, follow-up on pending blood work, imaging and pathology is if available and to follow-up on needed medical care in the outpatient setting. Time Spent with Patient Time attestation: Total time spent providing and/or coordinating discharge services: Time spent: greater than 30 minutes Exam Narrative Exam Narrative: Patient is feeling great. He is sitting on edge of the bed eating his breakfast. He is on room air. No distress. Chest exam is clear, heart is regular. Abdomen soft. Constitutional Vital Signs, click to edit/add: Last Vital Signs Temp 98.3 F 10/16/24 04:00 Pulse 70 10/16/24 09:39 Resp 18 10/16/24 09:39 BP 144/55 H 10/16/24 07:14 Pulse Ox 95 10/16/24 09:39 O2 Del Method Room Air 10/16/24 09:39 O2 Flow Rate 3 10/15/24 07:00 FiO2 25 10/15/24 05:26 Discharge Plan Discharge Disposition: Home, Self-Care Condition: Good Discharge Medications: New magnesium oxide 400 mg (241.3 mg magnesium) tablet 400 mg PO DAILY Qty: 30 1RF potassium chloride 20 mEq tablet extended release 20 meq PO DAILY Qty: 30 0RF budesonide-formoterol [Symbicort] 160-4.5 mcg/actuation HFA aerosol inhaler 1 puff inhalation BID Qty: 10.2 1RF Combivent Respimat 20-100 mcg/actuation mist 1 puff inhalation Q4H PRN (Reason: shortness of breath or wheezing) Qty: 4 1RF Continued amitriptyline 25 mg tablet 25 mg PO .QHS PRN (Reason: sleep) Jardiance 25 mg tablet 25 mg PO DAILY lisinopril 5 mg tablet 5 mg PO DAILY metformin 500 mg tablet 500 mg PO DAILY mirtazapine 15 mg tablet 15 mg PO BEDTIME metoprolol tartrate 25 mg tablet 25 mg PO BID nicotine [Nicoderm CQ] 14 mg/24 hr patch 24 hour 1 patch transdermal DAILY Patient Comments: ON IN THE MORNING AND OFF AT BEDTIME spironolactone 25 mg tablet 25 mg PO DAILY pantoprazole 20 mg tablet,delayed release (DR/EC) 20 mg PO DAILY tamsulosin 0.4 mg capsule 0.4 mg PO BEDTIME sertraline 50 mg tablet 50 mg PO QDAY rosuvastatin 40 mg tablet 40 mg PO DAILY Eliquis 5 mg tablet 5 mg PO BID furosemide 40 mg tablet 40 mg PO QDAY aspirin 81 mg tablet,delayed release (DR/EC) 81 mg PO DAILY Changed isosorbide mononitrate 120 mg tablet extended release 24 hr 120 mg PO DAILY Qty: 0 0RF Activity: increase activity as tolerated Diet: advance to your usual diet Print Language: Micronesian Patient Instructions: Hypokalemia (DC) Activity Restrictions/Additional Instructions: I may not have addressed or treated all of your medical illnesses or the abnormal blood work or imaging studies during this hospitalization. Please ask your primary care provider to obtain [facility] records entirely to follow up on all of the abnormal physical, laboratory, and imaging findings that I have not addressed. Please return back to the emergency room or seek medical attention if your symptoms worsen or return. Please cut down on smoking and quit by end of October. Please follow-up with your primary care doctor next week. You would need to have an echocardiogram. We will arrange for that and call you I would recommend that your primary care doctor would order a blood test called BMP next week to monitor your potassium level. I would recommend that your primary care doctor refer you to see lung specialist regarding your COPD/emphysema. Please provide your primary care doctor with this document Discharging you from [facility] does not mean that your medical care ends here and now. You may still need additional monitoring, work up, investigation, and treatment plan to be handled from this point on by out patient providers including your primary care provider and specialists. For any medication question, please contact your retail pharmacist or your primary care provider. Thank you. Forms: Portal Instructions Referrals: YANET GEORGE MD [Physician, Family Practice] Referral Note: For lung care. Thania Cabral MD [Physician, Cardiology]
--- NOTE | 2024-10-16 10:38 | PC.NURSE ---
iv and tele dc'd. discharge instructions given to pt, verbalized understanding. taken to exit via wheelchair, discharged to private vehicle.
--- NOTE | 2024-10-17 08:40 | CM.NOTE ---
Faxed order for pt's outpatient echo to [facility] and updated pt they would contact him for appt.
--- NOTE | 2024-10-17 09:30 | PC.NURSE ---
Follow up appt. with Elisa Granados NP at [facility] Fri. 10/20 @ 10:40am (will get referral for Dr. George at appt.) Follow up appt. with [facility] Wed 10/25 @ 2pm
--- NOTE | 2024-10-17 15:10 | CM.DCFOLLOWU ---
Person spoke with: Patient How are you feeling? Great How is your pain? No pain Did you understand your discharge instructions? Yes Do you have any questions about your discharge instructions? no Were you given any prescriptions at discharge? yes Were you able to get your prescriptions filled? All but the combivent Do you understand how to take your medications as ordered? yes Do you have any questions about your follow up appointment and do you plan to keep your follow up appointment? Appointment given to patient Luca Barrera [facility] Medicine Wednesday10/20/24 at 1040, [facility] Cardiology wednesday10/25/24 at 1400 Is there anything else that you would like to discuss? no Questions/Comments/Concerns/Other: RN contacted [facility] about the Combivent RX stated it was a cost issue for the patient and suggested Albuterol. Will contact provider to see if there is an acceptable alternative.
--- NOTE | 2024-10-18 10:19 | SWNOTE1 ---
SW received a call from pt in regards to his medications. Pt voiced they were sent to [facility], which he appreciated, but [facility] He did ask if someone could write the prescriptions and he could pick them up at hospital. ALEX to check with case management and then return call to pt.
--- NOTE | 2024-10-18 11:20 | SWNOTE1 ---
Case management and SW spoke to Dr. Bynum and he is able to write out prescriptions for pt's discharge medications and pt can pick them up. SW to call pt.
--- NOTE | 2024-10-18 11:31 | SWNOTE1 ---
SW called pt and advised the physician did write out scripts for the 4 medications that were presscribed to him at discharge. SW let him know he can pick them up down in the atrium, SW will leave them with the secretary specialist. He voiced understanding and will be getting them today.
== END 2024-10-16 10:33 | disposition home or self-care (01) | DRG 640 ==
LOC: ER 21:37 → MS 21:37
PROVIDERS: Physician Assistant; Admitting Provider Internal Medicine; Emergency Provider Emergency Medicine; Visit Provider Internal Medicine
DX: E87.6 Hypokalemia (principal); I50.41 Acute combined systolic (congestive) and diastolic (congestive) heart failure; J96.21 Acute and chronic respiratory failure with hypoxia; J96.22 Acute and chronic respiratory failure with hypercapnia; R64 Cachexia; E44.0 Moderate protein-calorie malnutrition; J44.1 Chronic obstructive pulmonary disease with (acute) exacerbation; E83.42 Hypomagnesemia; Z79.01 Long term (current) use of anticoagulants; M19.90 Unspecified osteoarthritis, unspecified site; Z86.73 Personal history of transient ischemic attack (TIA), and cerebral infarction without residual deficits; F41.9 Anxiety disorder, unspecified; I48.0 Paroxysmal atrial fibrillation; H90.5 Unspecified sensorineural hearing loss; F32.A Depression, unspecified; G47.33 Obstructive sleep apnea (adult) (pediatric); N40.0 Benign prostatic hyperplasia without lower urinary tract symptoms; F43.10 Post-traumatic stress disorder, unspecified; I25.2 Old myocardial infarction; E78.00 Pure hypercholesterolemia, unspecified; Z95.1 Presence of aortocoronary bypass graft; F17.200 Nicotine dependence, unspecified, uncomplicated; Z79.82 Long term (current) use of aspirin; Z79.84 Long term (current) use of oral hypoglycemic drugs; Z79.899 Other long term (current) drug therapy; E83.39 Other disorders of phosphorus metabolism; E11.9 Type 2 diabetes mellitus without complications; I25.10 Atherosclerotic heart disease of native coronary artery without angina pectoris; I65.29 Occlusion and stenosis of unspecified carotid artery; D64.9 Anemia, unspecified; I11.0 Hypertensive heart disease with heart failure; R62.7 Adult failure to thrive; M62.50 Muscle wasting and atrophy, not elsewhere classified, unspecified site; R54 Age-related physical debility; Z68.24 Body mass index [BMI] 24.0-24.9, adult
CPT/HCPCS: 36415; 36600; 71045; 71250; 80048; 80053; 82805; 83036; 83735; 84100; 84132; 84484; 85025; 85027; 93005; 94640; 94660; 94761; 96365; 96366; 99285; 99406; J1938; J2919; J3475; J3480

== ENCOUNTER 2024-10-27 08:44 | Outpatient (OUT) | payer OTHER, SELFPAY ==
--- OUTSIDE RECORDS SUMMARY | 2024-10-27 08:45 | XMS_ITS | Clinical Summary ---
Author Organization [facility] Address [address] [place] [address] Care Team Providers Care Fish Dressing Machine Feeder Name Role Phone Unavailable Primary Care Provider Unavailabl e Source Comments The following information is NOT included in Care Everywhere downloads:Psychiatric notes, ECG results, Cardiac Rehab notes, Pulmonary Function notes, data from Smart[employer] (includes but not limited toPregnancy data,audiograms, eye exams, pre-surgical evaluation notes, well-child exam data).[facility] Immunizations Immunization Administration Dates Next Due Influenza, intradermal, triv alent, preservative free (IIV3) (UCI=938) 10/16/2014 Moderna Monovalent (12+ yrs) COVID-19 vaccine, mRNA, spike protein, LNP, PF, 100 mcg/0.5 mL (XRH=140) 05/08/2020,04/11/2020 Social History Tobacco Use Types Packs/Day [...] 75+ series) 2021 COVID-19 Vaccine ( - 2024- season) 2024, 04/11/2020 Influenza Vaccine (#1) 2024 10/16/2014 Insurance MEDICARE
--- OUTSIDE RECORDS SUMMARY | 2024-10-27 08:45 | XMS_ITS | Clinical Summary ---
Author Organization [facility] Address [address] [place] [address] Care Team Providers Care Dictating Machine Transcriber Name Role Phone Unavailable Primary Care Provider [...] Payer (Ef fective 2005-Present) Name:Waldo Maravilla Member ID:[id number] Relation to Subscriber:Self Name:Waldo Maravilla Subscriber ID:[id number] Payer ID:Not on file Group ID:Not on file Type:Medicare [address]
--- OUTSIDE RECORDS SUMMARY | 2024-10-27 08:45 | XMS_ITS | Clinical Summary ---
Author Organization [facility] Address [address] [place] [address] Care Team Providers Care Biomathematician Name Role Phone Unavailable Primary Care Provider [...]
--- OUTSIDE RECORDS SUMMARY | 2024-10-27 08:45 | XMS_ITS | Clinical Summary ---
Author Organization [facility] Address [address] [place] [address], [address] [place] [address] Care Team Providers Care Real Estate Specialist Name Role Phone Unavailable Primary Care [...]
--- NOTE | 2024-10-27 08:51 | CA_ITS ---
Patient Name: CAROL MCPHERSON MR#: [id number] : 1945 Exam Date: 10/27/2024 Ordering Doctor: URIEL DICKEY ECHOCARDIOGRAM REPORT PROCEDURE: CA ECHO DOPPLER COMPLETE INDICATIONS: Hypokalemia, SOB, AFIB, CAD COMPARISON: None. DESCRIPTION: COMPLETE ECHOCARDIOGRAM Real-time transthoracic echocardiography with 2D, M-mode, spectral and color flow Doppler performed. QUALITY: Technical quality was good. LEFT VENTRICLE: Normal chamber size. Mild concentric left ventricular hypertrophy. Global left ventricular systolic function is normal without wall motion abnormalities. Visual estimation of left ventricular ejection fraction is 55%. LV EF: DIASTOLIC: Grade II diastolic dysfunction. ATRIAL SEPTUM: Visually appears intact LEFT ATRIUM: Severe dilatation. RIGHT ATRIUM: Mild dilatation. RIGHT VENTRICLE: Normal chamber size. Normal right ventricular systolic function. TRICUSPID VALVE: Normal mobility and thickness. No stenosis with mild regurgitation. Mild pulmonary hypertension. RVSP 42mmHg. MITRAL VALVE: Mildly thickened with normal mobility. No evidence of mitral valve stenosis. Mild to moderate mitral annular calcification. Mild mitral regurgitation. AORTIC VALVE: Normal trileaflet appearance. Mildly calcified aortic valve. Mildly diminished mobility. No evidence of aortic valve stenosis. DVI 0.54. Mild to moderate aortic regurgitation. AORTIC ROOT: Mildly dilated measuring 4.0cm. The ascending aorta measures 3.6cm. PULMONIC VALVE: Normal thickness and mobility. No stenosis. Mild regurgitation. PERICARDIUM: No evidence of pericardial effusion. IVC: Collapes with inspirations. Mildly dilated measuring 2.2cm PLEURA: CONCLUSION: Mild concentric left ventricular hypertrophy Normal left ventricular systolic function without wall motion abnormalities, ejection fraction 55% Grade 2 left ventricular diastolic dysfunction Normal right ventricular size and systolic function Mild pulmonary hypertension, RVSP 42 mmHg Severely dilated left atrium Mildly dilated right atrium Mild to moderate mitral annulus calcification Mild to moderate aortic insufficiency Mild mitral regurgitation Mild tricuspid regurgitation Mildly dilated aortic root, 4 cm Adult Echocardiography Procedure Report Left Ventricle LVEDD (3.7 - 5.6 cm): 5.15 cm LVESD (2.2 - 4.0 cm): 3.32 cm LVIVS thickness (0.6 - 1.2 cm): 1.43 cm LVPW thickness (0.5 - 1.0 cm): 1.15 cm e': 0.09 m/s E - e': 11.30 LVOT Max Gradient: 2.58 mm[Hg] LVOT Area (cm2): 0.80 m/s Peak Velocity (LVOT): 0.80 m/s Mean Velocity (LVOT): 0.58 m/s LVOT Diameter 2.52 cm Left Ventricular Ejection Fraction: 58.31 % Left Atrium LA Volume Index (2D A2C): 63.79 ml/m2 Left Atrium Systolic Dimension: 5.99 cm Mitral Valve MV E to A Ratio: 1.70 MV Max Gradient: MV Mean Gradient: Mitral Valve A-Wave Peak Velocity: 0.61 m/s Mitral Valve E-Wave Peak Velocity: 1.04 m/s Cardiovascular Orifice Area: Right Ventricle RV Internal Diastolic Dimension: 3.52 cm Aorta AO Root Diam: 4.00 cm Ascending Ao Diam: 3.64 cm Aortic Valve AoV Area (Peak Pastor): 2.70 cm2, 2.70 cm2 AoV Area (VTI): 2.86 cm2, 2.86 cm2 Deceleration Camp: 2.90 m/s2 Pressure Half-Time: 367.67 ms Peak Velocity(Antegrade Flow): 1.48 m/s Peak Gradient(Antegrade Flow): 8.75 mm[Hg] Mean Velocity(Antegrade Flow): 0.96 m/s Mean Gradient(Antegrade Flow): 4.41 mm[Hg] Velocity Time Integral: 36.88 cm Tricuspid Valve Peak Velocity (Regurgitant Flow): 2.76 m/s, 2.93 m/s, 2.76 m/s, 2.87 m/s Peak Velocity: Pulmonic Valve Mean Gradient: Mean Velocity: Peak Velocity: 0.85 m/s Peak Gradient: 3.16 mm[Hg], 2.61 mm[Hg] Right Atrium Right Atrium Systolic Pressure: 56.14 ml, 56.14 ml Dictated by: Fern Fonseca MD on 10/27/2024 at 19:00 Approved by: Fern Fonseca MD on 10/27/2024 at 19:10
== END 2024-10-27 08:45 | disposition home or self-care (01) ==
LOC: CARD 08:44
PROVIDERS: Visit Provider Internal Medicine
DX: E87.6 Hypokalemia (principal); R06.02 Shortness of breath; I48.91 Unspecified atrial fibrillation; I25.10 Atherosclerotic heart disease of native coronary artery without angina pectoris
CPT/HCPCS: 93306; 93356

== ENCOUNTER 2025-01-27 16:39 | Inpatient (IN) | payer MEDICARE, SELFPAY ==
--- OUTSIDE RECORDS SUMMARY | 2025-01-15 14:00 | XMS_ITS | Encounter Summary ---
Author Organization [facility] Address [address], [address] [place] [address] Care Team Providers Care Cylinder Inspector Name Role Phone Unavailable Primary Care Provider Unavailabl e Reason for Visit * ReasonCommentsNew Patient * Eval and Treat (Routine) - Pending ReviewSpecialtyDiagnoses / Procedures Referred By ContactReferred To Contact Diagnoses Malignant neoplasm of cardia (HCC) Slick Lynne II, MD [address] 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) Social History Tobacco UseTypesPacks/DayYears UsedDateSmoking Tobacco: FormerCigarettes Smokeless Tobacco: FormerSex and Gender InformationValueDate RecordedSex Assigned at VjmdeYzzu84/24/2025 12:05 PM ESTLegal EluHkwf7503/27/2012 3:17 PM EST Gender FjrhbtnaJlha91/24/2025 12:05 PM ESTSexual IlrhytexwgiBlfrxpui98/24/2025 12:05 PM ESTdocumented as of this encounter Last Filed Vital Signs Vital SignReadingTime TakenCommentsBlood Pressure--Goldn531801/15/2025 1:56 PM EST Snjdnldssfr76.4 ??C (97.6 ??F)01/15/2025 1:56 PM ESTRespiratory Rate--Oxygen Ayjtbyhtbm36%01/15/2025 1:56 PM ESTInhaled Oxygen Concentration--Tnubmb70 kg (150 lb)01/15/2025 1:56 PM WCMFpimdp927.9 cm (5' 6.5 )01/15/2025 1:56 PM ESTBody Mass Index23.8501/15/2025 1:56 PM ESTdocumented in this encounter Progress Notes * Ronine Sol MD - 01/15/2025 2:25 PM EST Subjective: Patient ID: Waldo Maravilla is a 79 y.o. male who presents today for: Chief Complaint Patient presents with New Patient HPI Patient was not having any dysphagia but says he just switched primary care doctors and his new doctor wanted a full workup given his age. 1 of these tests included an upper endoscopy which had an incidental finding of a fungating mass right at the GE junction. Biopsy was positive for adenocarcinoma. Endoscopic ultrasound showed a T2N0 lesion. CAT scan did not show any evidence of metastasis but a PET scan has not been performed. Patient was referred for consideration of surgical evaluation. Patient denies any dysphagia. He denies any weight loss. He has a small hiatal hernia which is asymptomatic if he takes his pantoprazole. Patient has had open heart surgery many years ago. In the past year he has had at least 3 hospital admissions for congestive heart failure or complications from medical management of the congestive heart failure. Recent stress test was positive for ischemia with no targets for any attempt at revascularization. No past medical history on file. No past surgical history on file. Social History Socioeconomic History Marital status: Spouse name: Not on file Number of children: Not on file Years of education: Not on file Highest education level: Not on file Occupational History Not on file Tobacco Use Smoking status: Former Types: Cigarettes Smokeless tobacco: Former Vaping Use Vaping status: Never Used Substance and Sexual Activity Alcohol use: Not on file Drug use: Not on file Sexual activity: Not on file Other Topics Concern Not on file Social History Narrative Not on file Social Drivers of Health Financial Resource Strain: Not on file Food Insecurity: No Food Insecurity (08/03/2024) Received from [facility] - Food Insecurity Worried About Running Out of Food in the Last Year: No Ran Out of Food in the Last Year: No Transportation Needs: No Transportation Needs (08/03/2024) Received from [facility] - Transportation Lack of Transportation: No Physical Activity: Not on file Stress: Not on file Social Connections: Not on file Intimate Partner Violence: Unknown (04/08/2023) Received from [facility] Safety & Environment Fear of Current or Ex-Partner: Not on file Emotionally Abused: Not on file Physically Abused: Not on file Sexually Abused: Not on file Physically or Sexually Abused: Not on file Housing Stability: Not At Risk (08/03/2024) Received from [facility] - Housing/Utilities Has Housing: Yes Worried About Losing Housing: No Unable to Get Utilities: No No family history on file. Allergies Allergen Reactions Other Vicryl Sutures Current Outpatient Medications on File Prior to Visit Medication Sig Dispense Refill amitriptyline (ELAVIL) 25 MG tablet Daily apixaban (ELIQUIS) 5 MG TABS tablet Twice daily empagliflozin (JARDIANCE) 25 MG tablet Daily isosorbide mononitrate (IMDUR) 120 MG extended release tablet Twice daily lisinopril (PRINIVIL;ZESTRIL) 5 MG tablet Daily magnesium oxide (MAG-OX) 400 MG tablet Take 1 tablet by mouth daily metFORMIN (GLUCOPHAGE) 500 MG tablet Daily metoprolol tartrate (LOPRESSOR) 25 MG tablet Twice daily mirtazapine (REMERON) 15 MG tablet Daily nicotine (NICODERM CQ) 14 MG/24HR Refill(s) 0, TRANSDERMAL, 0 Refill(s) pantoprazole (PROTONIX) 20 MG tablet Daily potassium chloride (KLOR-CON M) 20 MEQ extended release tablet Take 1 tablet by mouth 2 times daily ranolazine (RANEXA) 500 MG extended release tablet Twice daily rosuvastatin (CRESTOR) 40 MG tablet Daily sertraline (ZOLOFT) 50 MG tablet Daily spironolactone (ALDACTONE) 25 MG tablet Daily tamsulosin (FLOMAX) 0.4 MG capsule daily furosemide (LASIX) 40 MG tablet Take 1 tablet by mouth daily ipratropium 0.5 mg-albuterol 2.5 mg (DUONEB) 0.5-2.5 (3) MG/3ML SOLN nebulizer solution Inhale 3 mLs into the lungs every 4 hours as needed for Shortness of Breath vitamin D (VITAMIN D3) 50 MCG (2000 UT) CAPS capsule Take 1 capsule by mouth daily folic acid (FOLVITE) 400 MCG tablet Take 1 tablet by mouth daily Melatonin 5 MG CAPS Take by mouth No current facility-administered medications on file prior to visit. Review of Systems Constitutional: Negative for activity change, appetite change, chills, diaphoresis, fatigue, fever and unexpected weight change. HENT: Negative for sore throat, trouble swallowing and voice change. Eyes: Negative for visual disturbance. Respiratory: Negative for cough, choking, chest tightness, shortness of breath, wheezing and stridor. Cardiovascular: Negative for chest pain, palpitations and leg swelling. Gastrointestinal: Negative for abdominal distention, abdominal pain, diarrhea, nausea and vomiting. Genitourinary: Negative for difficulty urinating. Musculoskeletal: Negative for gait problem and joint swelling. Skin: Negative for rash and wound. Neurological: Negative for dizziness, seizures and light-headedness. Hematological: Negative for adenopathy. Does not bruise/bleed easily. Psychiatric/Behavioral: Negative for behavioral problems and confusion. Objective: Pulse 75 Temp 97.6 ??F (36.4 ??C) (Temporal) Ht 1.689 m (5' 6.5 ) Wt 68 kg (150 lb) SpO2 97% BMI 23.85 kg/m?? Physical Exam Constitutional: General: He is not in acute distress. Appearance: He is not ill-appearing, toxic-appearing or diaphoretic. HENT: Head: Normocephalic and atraumatic. Nose: Nose normal. Eyes: Extraocular Movements: Extraocular movements intact. Conjunctiva/sclera: Conjunctivae normal. Pupils: Pupils are equal, round, and reactive to light. Neck: Vascular: No carotid bruit. Cardiovascular: Rate and Rhythm: Normal rate and regular rhythm. Heart sounds: Normal heart sounds. No murmur heard. No gallop. Pulmonary: Effort: Pulmonary effort is normal. No respiratory distress. Breath sounds: Normal breath sounds. No wheezing or rales. Abdominal: General: Abdomen is flat. Bowel sounds are normal. Palpations: Abdomen is soft. There is no mass. Tenderness: There is no abdominal tenderness. Musculoskeletal: General: No swelling. Cervical back: Neck supple. Right lower leg: No edema. Left lower leg: No edema. Lymphadenopathy: Cervical: No cervical adenopathy. Skin: General: Skin is warm and dry. Neurological: General: No focal deficit present. Mental Status: He is alert and oriented to person, place, and time. Psychiatric: Mood and Affect: Mood normal. Behavior: Behavior normal. Thought Content: Thought content normal. Judgment: Judgment normal. Frail-appearing Radiographs and Laboratory Studies: Diagnostic Imaging Studies: I personally viewed the CAT scan. There is a small hiatal hernia and some thickening of the GE junction. I see no evidence of metastatic disease. Assessment/Plan Early stage GE junction adenocarcinoma. Have gone over treatment options with the patient and discussed nonsurgical management as well as an esophagectomy. I am very concerned about his surgical riskgiven his overall frail appearance but also the fact that he has had multiple admissions of this year for heart failure. He also has a new stress test which is positive. In the past stress tests havebeen negative. I think the best option for him is to proceed with nonsurgical management of the tumor. If this is unable to obliterate all of the cancer that we can have a discussion about a possiblesalvage of soft check to me. This would also be very high risk but I could entertain this if it is his only option. Diagnosis Orders 1. Malignant neoplasm of lower third of esophagus (HCC) No orders of the defined types were placed in this encounter. No orders of the defined types were placed in this encounter. Return if symptoms worsen or fail to improve. RONNIE SOL MD documented in this encounter Plan of Treatment Not on file documented as of this encounter Visit Diagnoses Diagnosis Malignant neoplasm of lower third of esophagus (HCC)- Primary Malignant neoplasm of lower third of esophagus documented in this encounter
--- OUTSIDE RECORDS SUMMARY | 2025-01-25 10:30 | XMS_ITS | Encounter Summary ---
Author Organization [facility] Address [address] [place] [address] Care Team Providers Care Director Case Name Role Phone Millicent Crowder NP Primary Care Provider [phone] Encounter Details DateTypeDepartmentCare Team (Latest Contact Info)Ipwlpiqisby96/11/2025 10:30 AM ESTOffice Visit [facility] [address] [place] [address] Thania Cabral MD [address] [facility] [place] [address] Preoperative clearance (Primary Dx); Chronic diastolic heart failure (CMS/HCC); Claudication; Carotid stenosis, asymptomatic, bilateral; Coronary artery disease involving tangirnaq coronary artery of tangirnaq heart without angina pectoris; Primary hypertension; Cardiovascular [...] file04/08/2023Sex and Gender InformationValueDate RecordedSex Assigned at IyplgYdqs13/24/2025 6:33 PM EDT Legal LfxTehu0008/13/2021 9:43 PM EDTGender CzpcjkshIgwa26/24/2025 6:33 PM EDT Sexual OrientationHeterosexual or Eastdkvr45/24/2025 6:33 PM EDTdocumented as of this encounter Last Filed Vital Signs Vital SignReadingTime TakenCommentsBlood Xadpayzs93/5801/25/2025 10:33 AM EST Pekrk548501/25/2025 10:33 AM ESTTemperature--Respiratory Rate--Oxygen Saturation 97%01/25/2025 10:33 AM ESTInhaled Oxygen Concentration--Imavpp43.4 kg (153 lb) 01/25/2025 10:33 AM WUCMoivle784.2 cm (5' 7 )01/25/2025 10:33 AM ESTBody Mass Index23.9601/25/2025 10:33 AM ESTdocumented in this encounter Progress Notes * Thania Cabral MD - 01/25/2025 10:30 AM EST Images from the original note were not included. [facility] Cardiology Clinic Note Chief Complaint: Patient here for 3 mo follow up CAD, HFpEF, PAF, HTN, HLD, and carotid artery stenosis. He is now seeing Dr. Rodriguez of vascular surgery and Dr. Peguero of GI with [facility]. Recently found to have stomach cancer. Has upcoming surgery with Dr. Rodriguez on his carotids. Denies chest painand SOB. Does get lightheaded at times but denies syncope/falls. HPI: Waldo Maravilla is a 79 y.o. male h/o CAD s/p CABG and PCI/stents, HTN, paroxysmal a.fib, HLD. Was visiting his daughter in [place] recently; developed significant shortness of breath and [...] The patient is a 78-year-old male from [place] with a significant respiratory distress who was [...] has a past medical history of A-fib ([facility]) (09/29/2021), Abnormal ECG, Arrhythmia, Asthma (09/29/2021), CAD (coronary artery disease) (09/29/2021), Essential hypertension (09/29/2021), Pneumonia (09/29/2021), and Type 1 diabetes ([facility]) (09/29/2021). Surgical History He has a [...] 6 months Thania Cabral MD, MPH, FACC, [facility], [facility] Interventional Cardiology Pager Email: [email or web address] documented in this encounter Plan of Treatment DateTypeDepartmentCare Team (Latest Contact Info)Ozbacriivuk93/06/2026 10:30 AM ESTHospital Encounter [facility] Vascular Lab [address] [place] [address] Thania Cabral MD [address] [place] [address] Pre-op pbxzylqchg40/06/2026 10:30 AM EST - 02/20/2025 11:30 AM ESTSurgery [facility] [address] [facility] [place] [address] Thania Cabral MD [address] [place] [address] Coronary angiographydocumented as of this encounter Visit Diagnoses Diagnosis Preoperative clearance- Primary Unspecified pre-operative examination Chronic diastolic heart failure ([facility]) Chronic diastolic heart failure Claudication Unspecified peripheral vascular disease Carotid stenosis, asymptomatic, bilateral Coronary artery disease involving tangirnaq coronary artery of tangirnaq heart without angina pectoris Primary hypertension Unspecified essential hypertension Cardiovascular stress test abnormal Pre-op evaluation- Primary Pre-op evaluation documented in this encounter Care Teams Team MemberRelationshipSpecialtyStart DateEnd Date Millicent Crowder NP [address] [place] [address] PCP - GeneralFamily Ruuzautt80/11/25documented as of this encounter
--- OUTSIDE RECORDS SUMMARY | 2025-01-26 10:00 | XMS_ITS | Continuity of Care Document ---
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 Name Role Phone Dandre Peguero MD Attending Provider [phone] Dandre Peguero MD Other Provider NON STAFF Primary Care Provider Unavailabl e Slick Lynne II, DO Attending Provider Waldo Elias MD Attending Provider [phone] Artur Chavira MD Attending Provider [phone] Slick Lynne II, DO Referring Provider Care Teams Patient Care Team Team Status: Active Member Role/Relationship Status Dates NON STAFF Primary Care Provider Active Visit Care Team Team Status: Active Member Role/Relationship Status Dates Dandre Peguero MD Attending Provider Active S tart: December 18, 2024 Dandre Peguero MDOther ProviderActiveStart: December 18, 2024 NON STAFFPrimary Care ProviderActiveStart: December 18, 2024 Visit Care Team Team Status: Inactive Member Role/Relationship Status Dates NON STAFF Primary Care Provider Active Start: January 01, 2025 End: January 01, 2025Slick Lynne II, DOAttending ProviderActiveStart: January 01, 2025 End: January 01JANI Recinoseferring ProviderActiveStart: January 01, 2025 End: January 01, 2025 Visit Care Team Team Status: Inactive Member Role/Relationship Status Dates NON STAFF Primary Care Provider Active Start: January 02, 2025 End: January 02omas Olexa , MDAttending ProviderActiveStart: January 02, 2025 End: January 02, 2025 Visit Care Team Team Status: Inactive Member Role/Relationship Status Dates NON STAFF Primary Care Provider Active Start: January 15, 2025 End: January 15, 2025Nosaskia Chavira , MDAttending ProviderActiveStart: January 15, 2025 End: January 15, 2025Timriana Lynne II, DOReferring ProviderActiveStart: January 15, 2025 End: January 15, 2025 Visit Care Team Team Status: Inactive Member Role/Relationship Status Dates NON STAFF Primary Care Provider Active Start: January 23, 2025 End: January 23, 2025Thomas Olexa , MDAttending ProviderActiveStart: January 23, 2025 End: January 23, 2025 Patient Care Team Team Status: Inactive Member Role/Relationship Status Dates NON STAFF Primary Care Provider Active Start: January 26, 2025 End: January 26, 2025Slick Lynne II, DOAttending ProviderActiveStart: January 26, 2025 End: January 26, 2025 Visit Care Team Team Status: Active Member Role/Relationship Status Dates NON STAFF Primary Care Provider Active Start: January 26, 2025 Slick Lynne II, DOAttending ProviderActiveStart: January 26, 2025 Dandre Peguero , MDReferring ProviderActiveStart: January 26, 2025 Chief Complaint and Reason for Visit Chief Complaint Admit Date IRON DEF ANEMIA December 18, 2024 7 :38am NEW Stomach cancer January 01, 2025 10:35am NEW RT MIDDLE TRIGGER FINGER January 022024 10:33am New Patient Stomach January 15, 2025 1 2:47pm 2-3 WEEKS January 23, 2025 9 :57am Follow Up 3 Weeks January 26, 2025 2:20pm Stomach cancer January 26, 2025 2:25pm Reason for Visit Admit Date Trigger finger, right middle finger Nove mber 2024 10:33am Malignant neoplasm of cardia of stomach January 15, 2025 12:47pm Trigger finger, right middle finger Nilsa mber 2024 9:57am Reason for Referral Type Reason(s) Provider Provider Contact Information P rovider Address Start Date Malignant neoplasm of cardia of stomach C16.0 - Malignant neoplasm of fnudhgJ88.0 - Malignant neoplasm of cardiaNorleena MD Fan[employer] Phone: [phone] [facility] [address]Qgupxpzx 2024 Allergies, Adverse Reactions, Alerts Allergen Type Severity Reaction Last Updated Verified Status No Known Allergies Allergy Unknown January 26, 2025 2:27pmYesActive Social History Smoking Status Status Start Date End Date Date of Observa tion Ex-smoker (finding) January 15, 2025 1:10pm Observation Status Observation Response Date of Response Legal Sex [facility] (finding) [facility] 1945 Family History Relationship Condition Age at Onset Recorded Date/T jailene father Diabetes mellitus Unknown brotherMalignant neoplasmUnknownsisterMalignant neoplasmUnknown Problems Active Problems Problem Diagnosis/Recorded Date Onset Date Stat us Trigger finger, right middle finger January 02 10:45am Unknown Active Malignant neoplasm of cardia of stomach December 20, 2024 3:41pm Unknown Active Medications Medication Status Dose Units Route Directions Qty Days Refills S tart Date Stop Date End Date Reason(s) Instructions Adherence Sod Picosulf-Mag Ox-Citric Ac (Clenpiq) 10 mg-3.5 gram- 12 gram/175 mL solution Discontinued 175 ML PO .COMPLEX 350 1 0 December 06, 2024 11:00pm December 18, 2024 8:02amFollow instructions given by officeLisinopril 5 mg vvkkarKsysgd4HEMIDbtxlMuvbvcw 22nd, 2025 11:00pmUnknownAmitriptyline 25 mg skwofhYfalml77WDHMPqggkJaqkczs 22nd, 2025 11:00pmUnknownApixaban (Eliquis) 5 mg wyegrkOdbcwi9TVFRCixmn dailyOct2024 11:00pmUnknownAspirin 81 mg xqthqohVvzlbeedpphy38SASPXtpbjCadvlsa 22nd, 2025 11:00pmDece2024 1:03pmDapagliflozin Propanediol (Farxiga) 10 mg tpvbxzUolenxqowrxn29NYBBPmunx December 06, 2024 11:00pmDecebanner heart hospital 2024 1:05pmIsosorbide Mononitrate 120 mg tablet extended release 24 geYbdczl921ODBPHlwmu dailyM[facility] 2024 11:00pm UnknownMetformin 500 mg ooctarVxrgpi141ZANMNfmazJogixpj 2024 11:00pm UnknownMetoprolol Tartrate 25 mg hyxsngOujzck73VYEBShcuk dailyM[facility] 2024 11:00pmUnknownMirtazapine 15 mg acrprwHqakbu12ILDKDowfnUdpywxq 2024 11:00pmUnknownPantoprazole 20 mg tablet,delayed release (DR/EC)Sxxpec94LURDZbdup December 06, 2024 11:00pmUnknownRanolazine 500 mg tablet extended release 12 hr Alvnfa536AABXPofrk dailyM[facility] 2024 11:00pmUnknownRosuvastatin 40 mg qwyohiTygvys05ZKOTPbzrvQnixqqt 2024 11:00pmUnknownSertraline 50 mg tablet Iigpnx88ZWBOOmsaiDbjabdy 2024 11:00pmUnknownSpironolactone 25 mg tablet Cvsqfi41PDAGKwjjwFdqowja 2024 11:00pmUnknownFurosemide (Lasix) 20 mg jarbzjHxvaxy35LKGRtfayiFtodnbh 2024 11:00pmUnknownTamsulosin 0.4 mg capsuleActive0.4MGPOdaLogansport State Hospital 2024 11:00pmUnknownIpratropium-Albuterol 18-103 mcg/actuation aerosolDiscontinuedSPRAYISt. Catherine Hospital 2024 12:00amDecebanner heart hospital 2024 1:06pmBudesonide-Formoterol (Symbicort) 160-4.5 mcg/actuation HFA aerosol jhumlgpVtvxvghnvvog3TXYVEVCHOPZXOTufgr dailyNovember 2024 12:00amDecebanner heart hospital 2024 1:03pmPotassium Chloride 20 mEq tablet extended thdpmbjTwsckw21WINUXCpjgiJwlaczfa 2024 12:00amUnknownMagnesium Oxide 400 mg magnesium wvndctRupfoo318BFQOGnvgnYizwszdn 17th, 2025 12:00am UnknownEmpagliflozin (Jardiance) 25 mg xgjwluIqvcos76OYCWXgitvBhpdilni 17th, 2025 12:00amUnknownMultivitamin dwykqfOsuzsz2HGKLVZemhbLeqszynr 1st, 2025 12:00amUnknownNicotine 14 mg/24 hr patch 24 gfipJvujyq3BSBQEFPIJDTTICCUwijy January 15, 2025 12:00amUnknownDiphenhydramine Hcl 50 mg hvoyupqHxjfkm20CHZU Daily at bedtimeJanuary 15, 2025 12:00amUnknownFerrous Sulfate 325 mg (65 mg iron) cpwqdvIcwvjt051DCUYZchswSrfcrgco 1st, 2025 12:00amUnknownFolic Acid 1 mg rmvlbmMunlgj0NEWCYzjrwKukjypfl 1st, 2025 12:00amUnknownCholecalciferol (Vitamin D3) 50 mcg (2,000 unit) rzkzghdIblgye13NOLWSOrnmeTynvqpbm 1st, 2025 12:00am UnknownIpratropium-Albuterol 20-100 mcg/actuation vrhlSblxgh5NNJKVFUVNKRUDRVnhn times dailyJanuary 15, 2025 12:00amUnknown Procedures Procedure Date Performed Status CT abdomen pelvis w con January 05, 2025 1:[address] chest w con January 05, 2025 1:44pm compl eted Relevant Diagnostic Tests and/or Laboratory Data Laboratory Results Test Collection Date/Time Result Date/Time Result Interpretation Reference Range Result Comment Performing Site Corrected White Blood Count January 01, 2025 12:32pm January 01, 2025 1:51pm 7.8 10*3/uL 4.1-10.5[facility] [id number] [address] [facility] [address]Vahigbekdvo WBC CountJanuary 01, 2025 12:32pmNovember 2024 1:51pm7.8 10*3/uL4.1-10.5[facility] [id number] [address] [facility] 664[address]Pkq Blood CountJanuary 01, 2025 12:32pmNovember 2024 1:51pm4.59 10*6/uL3.90-5.60[facility] [id number] [address] [facility] 514[address]WeqprwbrljPqumtrjk 17th, 2025 12:32pmNovember 2024 1:51pm 10.9 g/dLBelow low bepise90.0-17.0[facility] [id number] [address] [place] [address] 70680RbxyormajvFdmcyxnj 2024 12:32pmNovemb2024 1:51pm 33.4 %Below low jkqhuw78.8-50.0[facility] [id number] [address] [facility] 715[address]Jruo Corpuscular VolumeNovember 2024 12:32pmNovember 2024 1:51pm72.7 fLBelow low owzjju10.5-101[facility] [id number] [address] [place] [address] 76298Bwqa Corpuscular HemoglobinNovember 2024 12:32pmNovember 2024 1:51pm23.8 pgBelow low .5-35.2[facility] [id number] [address] [place] [address] 90606Opbt Corpuscular Hemoglobin ConcentNovember 2024 12:32pm January 01, 2025 1:51pm32.8 g/dL32.5-35.6[facility] [id number] [address] [place] [address] 18619Lzi Cell Distribution WidthNov2024 12:32pmNoveer 2024 1:51pm25.1 %Above high .0-14.8[facility] [id number] [address] [place] [address] 53205Xzpjshvu CountNov2024 12:32pmNove2024 1:47sr235 10*3/rR845-517UifybnfmwCleveland Clinic [facility] [id number] [address] [place] [address] 34827Butu Platelet VolumeNovember 2024 12:32pmNove2024 1:51pm10.0 fL6.6-10.1[facility] [id number] [address] [facility] 406[address]Aocrtzhisub (%) (Auto)January 01, 2025 12:32pmNovember 2024 2:55pm68.7 %.[facility] [id number] [address] [facility] 67943Rveudzztkiz (%) (Auto)January 01, 2025 12:32pmNovember 2024 2:55pm17.1 %.[facility] [id number] [address] [facility] 56873Tbfazermv (%) (Auto)January 01, 2025 12:32pmNovember 2024 2:55pm11.4 %.[facility] [id number] [address] [facility] [address]55[address]Yjxrhxmdhny (%) (Auto)January 01, 2025 12:32pmNovember 2024 2:55pm2.1 %.[facility] [id number] [address] [facility] 43457Yhbpqkrxl (%) (Auto)January 01, 2025 12:32pmNovember 2024 2:55pm0.7 %.[facility] [id number] [address] [facility] 00730Btpljsqla RBC Relative Count (auto)January 01, 2025 12:32pm January 01, 2025 2:55pm0.0 /100{WBC}0-0.5[facility] [id number] [address] [facility] 55536Lxwqyysmssi # (Auto)January 01, 2025 12:32pmNovember 2024 2:55pm5.4 10*3/uL1.8-7.7[facility] [id number] [address] [facility] 61677Gveeqlbvclw # (Auto)January 01, 2025 12:32pmNovember 2024 2:55pm1.3 10*3/uL1.00-4.8[facility] [id number] [address] [facility] 38720Imhzbcyph # (Auto)January 01, 2025 12:32pmNovember 2024 2:55pm0.9 10*3/uLAbove high normal0.0-0.8[facility] [id number] [address] [facility] 15462Qeapacpeits # (Auto)January 01, 2025 12:32pmNovember 2024 2:55pm0.2 10*3/uL0.0-0.45[facility] [id number] [address] [facility] 41270Lwjikcovj # (Auto)January 01, 2025 12:32pmNovember 2024 2:55pm0.1 10*3/uL0.0-0.2[facility] [id number] [address] [place] [address] 27135Lqi Blood Cell MorphologyNovember 2024 12:32pmNovember 2024 2:55pmN/AFCleveland Clinic [facility]tr [id number] [address] [place] [address] 68859OiwdhzubraiisUewehsmb 2024 12:32pmNovember 2024 2:55pmSlightCleveland Clinic Children'S Hospital [facility] [id number] [address] [place] [address] 66492GwwvaqeumdbzqWipbnimq 2024 12:32pmNovember 2024 2:55pmSlightCleveland Clinic Children'S [facility] [id number] [address] [place] [address] 99692EbrnrhpxbplrOdkhhaow 2024 12:32pmNovember 2024 2:55pmModerateCleveland Clinic Children'S [facility] [id number] [address] [place] [address] 88451SwlqmdfpbzfkAvifaymc 2024 12:32pmNovember 2024 2:55pmModerateCleveland Clinic Children'S Hospital [facility] [id number] [address] [place] [address] 63661Kbsa Drop CellsNovember 2024 12:32pmNovember 2024 2:55pmSlightCleveland Clinic Children'S [facility] [id number] [address] [place] [address] 66602ZxswmmzsbbDwovwvsx 2024 12:32pmNovember 2024 2:55pm SlightCleveland Clinic Children'S [facility] [id number] [address] [facility] 68791Uxmplhec EstimateNov2024 12:32pmNovember 2024 2:55pmNormalNormAC[facility] [id number] [address] [facility] 28219Vhcuvwcz Morphology CommentJanuary 01, 2025 12:32pmNovember 2024 2:55pmNormalNormACMC [facility] [id number] [address] [facility] 63768Zvlxkkm LevelNovember 2024 12:32pmNovember 2024 2:12pm76 mg/mY57-447ADG recommended reference rangeRandom Glucose Reference Range is dependent on time and content of last meal. Glucose of more than 200 mg/dL in a nonstressed, ambulatory subject supports the diagnosisof Diabetes Mellitus.[facility] [id number] [address] [facility] 79270Whnbq Urea NitrogenJanuary 05, 2025 1:50pmNov2024 2:17pm8 mg/dL7-25[facility] [id number] [address] [facility] 73994KwtrtsfevbQipdfdan 21st, 2025 1:50pmNov2024 2:17pm 1.36 mg/dLAbove high normal0.70-1.30[facility] [id number] [address] [facility] 88001Okyudftda GFR (CKD-EPI)January 05, 2025 1:50pmNov2024 2:17pm53.266 mL/MinCleveland Clinic Children'S Hospital For [facility] [id number] [address] [facility] 43077Zcjynv LevelNov2024 12:32pmNovember 2024 2:17so608 mmol/W852-333YcnvyvyipCleveland Clinic Children'S Hospital [facility] [id number] [address] [facility] 94361Uwpppqgbx LevelNovember 2024 12:32pmNovember 2024 2:12pm4.5 mmol/L3.5-5.1[facility] [id number] [address] [facility] 77769Yefflgep LevelNovember 2024 12:32pmNovember 2024 2:29us806 mmol/I11-592EodpgzlrlCleveland Clinic [facility]'S [facility] [id number] [address] [place] 8518470Carbon Dioxide LevelNovember 2024 12:32pmNovember 2024 2:12pm25.7 mmol/L21.0-31.0[facility] [id number] [address] [facility] 76031Kdvwx GapNovember 2024 12:32pmNovember 2024 2:12pm 12.8 mEq/L6.0-15.0[facility] [id number] [address] [place], [place] [address]Calcium LevelNovember 2024 12:32pmNovember 2024 2:12pm9.2 mg/dL8.6-10.3[facility] [id number] [address] [place] 8518470Total ProteinNovember 2024 12:32pmNovember 2024 2:12pm7.0 g/dL6.4-8.9[facility] [id number] [address] [facility] 94649KpnmuqgXuesrewu 2024 12:32pmNovember 2024 2:12pm4.0 g/dL3.5-5.7[facility] [id number] [address] [place] [address] 41195QmocxqnwZpdubyti 2024 12:32pmNovember 2024 2:12pm 3.0 g/dLCleveland Clinic Children'S Hospital For [facility] [id number] [address] [place] [address] 16223Woaqelf/Globulin RatioNovember 2024 12:32pmNovember 2024 2:12pm1.3[facility] [id number] [address] [place] [address] 35893Sobnr BilirubinNovember 2024 12:32pmNovember 2024 2:12pm0.4 mg/dL0.3-1.0[facility] [id number] [address] [facility] 42724Xibabgvgc Amino Transf (AST/SGOT)January 01, 2025 12:32pm January 01, 2025 2:12pm13 U/D79-12TpkobidofCleveland Clinic [facility]'S [facility] [id number] [address] [facility] 27574Bvfrobd Aminotransferase (ALT/SGPT)January 01, 2025 12:32pm January 01, 2025 2:12pm10 U/L7-52[facility] [id number] [address] [facility] 38625Yotdujmz PhosphataseNovember 2024 12:32pmNovember 2024 2:12pm95 U/M63-661EqisuswctCleveland Clinic [facility]'S [facility] [id number] [address] [facility] 00828Ksps LevelNovember 2024 12:32pmNovember 2024 2:41pm 24 ug/dLBelow low bnqedp93-388IefpywajuCleveland Clinic Children'S [facility] [id number] [address] [place] [address] 96507Lvywz Iron Binding CapacityNov2024 12:32pmNovember 2024 2:63vj317 ug/gV687-672CkopzjxkjCleveland Clinic [facility]'S [facility] [id number] [address] [place] [address] 51485Unya SaturationNov2024 12:32pmNovember 2024 2:41pm6.3 %Below low pyizhd19-77KrtmstfgwCleveland Clinic Children'S [facility] [id number] [address] [place] [address] 84662LzrdqouhipvElgxfbdj 2024 12:32pmNovember 2024 2:76fh203 mg/rE122-754UfibjjwbsCleveland Clinic Children'S [facility] [id number] [address] [place] [address] 65688KzbxewovWnhhhinj 2024 12:32pmNovember 2024 2:34pm 11.8 ng/mLBelow low plabek93.9-336.2FC[facility] [id number] [address] [place] [address] 57242Knlhqxuinkswkrax AntigenNovember 2024 12:32pmNovember 2024 2:25pm2.9 ng/mL0.0-3.0Serial tumor marker results determined by assays using different manufacturers or methods may not be comparable.[facility] mechanical unit repairer and method:[employer] UNICGood Eggs DXI, 2 SITE IMMUNOENZYMATIC ???SANDWICH?? ASSAY.[facility] [id number] [address] [place] [address] 95899Scfeota B12 LevelNov2024 12:32pmNovember 2024 2:61ok2096 pg/mLAbove high ybxyok179-305CpzvbcygbCleveland Clinic Children'S [facility] [id number] [address] [place] [address] 13839RrcpfmSzsrzulq 17th, 2025 12:32pmNovemb2024 3:20pm29.0 ng/mL>5.9Folate reference range: >5.9 ng/mlThe WHO technical consultation on folate and vitamin o81yvserllytqak has determined that folate concentrations lessthan 4 ng/ml are considered deficient.[facility] [id number] [address] [place] [address] 74575Kwukkvdg Creatinine Clearance (ChemNovember 2024 1:50pm January 05, 2025 2:17pm40.40[facility] [id number] [address] [place] [address] 37016 Diagnostic Imaging Reports Author Mukesh Pisano [facility] HospitalAuthoredNov2024 3:40pmReport Dictated Date/TimeDictated ByStatusRadiology ReportNov2024 3:40pm Mukesh Pisano Jr DOcompleteK[facility] [place] [address] [place] [address] Scan Report Signed Patient: Waldo Maravilla MR#: [id number] : 1945 Acct:[id number] Age/Sex: 79 / M ADM Date: 5 Loc: [facility]: [facility]: Slick Lynne II DO Copies to: Slick Lynne II, DO~ Ordering Provider: Slick Lynne II, DO Date of Service: 01/05/25 CT/CT chest w con: C16.0 - Malignant neoplasm of cardia ([id number]) CT/CT abdomen pelvis w con: C16.0 - Malignant neoplasm of cardia CT CHEST, ABDOMEN AND PELVIS WITH INTRAVENOUS CONTRAST: CLINICAL HISTORY: Stomach cancer initial staging. COMPARISON: None TECHNIQUE: Spiral images were obtained through the chest, abdomen and pelvis following the administration of IV contrast. This CT exam was performed using one or more following dose reduction techniques: Automated exposure control, adjustment of the mA and/or kV according to patient size, or use of iterative reconstruction technique. FINDINGS: CT chest: Mediastinum:Thoracic aorta appears normal in caliber. Pulmonary trunk appears nondilated. No pericardial effusion. Severe coronary artery calcifications. No lymphadenopathy. The esophagus is grossly unremarkable. Small hiatal hernia. Lungs:Bilateral pleural calcifications. Mild reticular changes. No consolidation pneumothorax or pleural effusion. Emphysema. Calcified anulus. Soft tissues/Bones: No acute findings. Sternotomy wires are present. Osseous structures demonstrate degenerative change. CT abdomen and pelvis: Organs:Cholelithiasis. Liver portal vein pancreas spleen all appear unremarkable. Thickening involving the adrenal glands bilaterally. No enhancing renal mass or hydronephrosis. Abdominal aorta demonstrates no aneurysm.[ GI: Stomach is mildly distended without measurable lesion. Small bowel appears nondilated. No acute colonic abnormality.[ Pelvis:[Urinary bladder and prostate gland appear unremarkable.] Peritoneum/Retroperitoneum:No free air or free fluid or lymphadenopathy.[ Abd wall/Bones:Abdominal wall demonstrates no acute findings. Osseous structures demonstrate degenerative change.[ CT/CT chest w con IMPRESSION: No CT evidence of metastatic disease. Bilateral pleural calcifications suggestive of prior asbestos exposure. Cholelithiasis. Impression dictated by: Mukesh Pisano Jr., D.OAlejandro 01/05/2025 3:45 PM Dictation Location: [place] [address] Transcribed By: [facility] 01/05/25 154 Dictated By: Mukesh Pisano Jr, DO 01/05/25 1540 Signed By: <Electronically signed by Mukesh Pisano Jr, DO in OV> 01/05/25 154 Vital Signs Vital Reading Result Reference Range Collection Date/Time Height 66.5 [in_i] December 18, 2024 8:78hnGwmghq73.13 kgNov2024 8:00amHeart Rate73 /yrq47-697Uiocdoey 3rd, 2025 9:38amRespiratory rate16 /cid41-29Pbpdythc2024 9:38amOxygen saturation by Pulse kufvhwuk083 %95-100December 18, 2024 9:38amBP Ywwknknv988 mm[Hg]100-140December 18, 2024 9:38amBP Msqgmklaq99 mm[Hg] 60-100December 18, 2024 9:62jqWrgfco97.50 [in_i]January 01, 2025 10:37am Kquueb14.76 kgJanuary 01, 2025 10:37amBody Noausugckba49.5 [degF]97.6-99.0 January 01, 2025 10:37amHeart Rate57 /ksk28-169Yspiewqa2024 10:37am Respiratory rate16 /jjn16-88Evcydqbt2024 10:37amOxygen saturation by Pulse ldtcjtuw56 %95-2024 10:37amBP Pvuvquwv186 mm[Hg]100-140 January 01, 2025 10:37amBP Olyvrsjwn72 mm[Hg]60-100January 01, 2025 10:37amBMI (Body Mass Index)24.7 kg/d9RnkrkcpwJanuary 01, 2025 10:14keFadxxq82.70 kg January 15, 2025 1:01pmHeart Rate80 /bix15-125YoqnuhliJanuary 15, 2025 1:01pm Respiratory rate16 /dlm54-90AqyonsssJanuary 15, 2025 1:01pmOxygen saturation by Pulse gmhvycjj62 %95-1002024 1:01pmBP Nmcpapmx602 mm[Hg]100-140Decemb2024 1:01pmBP Urxmbwrio18 mm[Hg]60-100Decemb2024 1:31tmLxbhnx42.30 kgDece2024 2:25pmHeart Rate75 /jrg40-746Hrwqpibc 12th, 2025 2:25pm Respiratory rate20 /vtr67-19Rykppbwc 12th, 2025 2:25pmOxygen saturation by Pulse igpfxpra55 %95-100ce2024 2:25pmBP Gwsazijc351 mm[Hg]100-140 January 26, 2025 2:25pmBP Eckymvnrd28 mm[Hg]60-100December 2024 2:25pm Xbguey52.50 [in_i]January 01, 2025 10:00ndBuobgc39.30 kgDecember 2024 2:25pmHeart Rate77 /nzb42-018ZfslspwvJanuary 23, 2025 1:24pmRespiratory rate18 /min 12-24Dece2024 3:28pmOxygen saturation by Pulse kiblktwd82 %95-100 January 23, 2025 1:24pmBP Wurlbaxl774 mm[Hg]100-140December 2024 3:28pmBP Typvuezdr32 mm[Hg]60-100December 2024 3:28pm Advance Directives Advance Directive Response Recorded Date/ Time Advance Directives No October 12:01pm Insurance Providers Guarantor Waldo Maravilla Address [address] [facility] [address]Fvtjrov Info.Home Phone: Coverage Status Update:2024 Payer Group Member ID Coverage Type Subscriber Relationship to Subscriber Effective Date Expiration Date [facility] [place] [id number] [id number] L Shannon Id: [id number] [address] [facility] [address] Home Phone: Self Encounters Encounter Location(s) Arrival/Admit Date Discharge/Departure Date Discharge/Departure Disposition Provider(s) Non-patient / Non-visit -[facility] Novem 2024 7:38am YAMIL Fuchseparted Physician/Provider Office Visit-[facility]2024 10:35amNoveer 2024 12:06pmDischarged to home care or self care (routine discharge)MARIBELL Ruizeparted Physician/Provider Office Visit-[facility] 20[facility] 10:33amNovemb2024 10:49amDischarged to home care or self care (routine discharge)YAMIL Fieldeparted Physician/Provider Office Visit[facility] 20[facility] 2:36pmDischarged to home care or self care (routine discharge)YAMIL Sarmientoeparted Physician/Provider Office Visit-[facility] 9[facility] 2024 10:08amDischarged to home care or self care (routine discharge)Waldo Elias , YAMILeparted Physician/Provider Office Visit-[facility] 2:[facility] 20[facility] 3:00pmDischarged to home care or self care (routine discharge)Slick Lynne II DO Registered Recurring-[facility] 2024 2:25pmSlick Lynne II DO Recent Diagnosis Onset Date Admit Date Trigger finger, right middle finger Unknown January 02, 2025 10:33am Malignant neoplasm of cardia of stomach Unknown January 15, 2025 12:47pm Trigger finger, right middle finger Unknown January 23, 2025 9:57am Assessments Diagnosis Onset Date Resolution Status Admit Date Trigger finger, right middle finger acuteNovember 2024 10:33amMalignant neoplasm of cardia of stomachacute January 15, 2025 12:47pmTrigger finger, right middle fingeracuteExcel[facility] 2024 9:57am Plan of Treatment Author Artur Chavira [facility] 2024 1:06pmPatient to proceed to a surgical appointment today. We await surgical input. 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 Patient has completed EUS however it appears pathology needs to be sent for MMR/MSI, Her2, PDL1. I do not see where H. pylori was tested as well. Patient will proceed to surgical evaluation today. Due to the location of the hiatal hernia and involvement of the cardia I would favor upfront surgical resection and consideration of chemo. Should the patient not be a surgical candidate we can consider attempting definitive management with concurrent chemoradiation to a dose of 50.4-54 Forrester. I would need to obtain a PET scan for treatment planning and target delineation. I provided a general overview of radiation treatment planning and delivery. We discussed the need for immobilization and CT simulation. Short and long-term side effects were reviewed in detail and his questions were answered. Await surgical input. Author Renea [facility] CenterAuthoredDecember 2024 10:10amPatient is progressing well. We will allow more time for symptoms to fully resolve. May consider repeat injection versus surgical release if symptoms recur. Author Renea [facility] CenterAuthoredNovember 2024 10:47amThis appears to trigger finger. We discussed the cause of this condition and the treatment options. We discussed stretching of the finger as well as massage of the palmar MCP region. We discussed the use of cortisone injection into the palmar aspect of the hand at the trigger site can be helpful in relieving painful symptoms. We also discussed the option of surgical release which can eliminate the problem. Patient was prepped and 1 cc kenalog/2cc marcaine was injected into the right long finger tendon sheath under sterile conditions. Patient tolerated well with no adverse reactions. If no improvement or has recurrance may consider surgical release. Future Tests Future scheduled test information is unavailable Pending Tests Test Name Ordered Date Scheduled Date Comprehensive Metabolic Panel January 01 12:00pm 3 Weeks Comprehensive Metabolic Panel January 26 2:54pm 3 Weeks Future Visits Future appointment information is unavailable Future Procedures Procedure Name Ordered Date Scheduled Date Discharge Order December 18, 2024 9:22am Novemb 2024 9:22am Complete Blood Count Auto Diff January 02, 2025 1:40pm 1 Days Complete Blood Count Auto Diff January 02, 2025 1:40pm 1 Days Iron and TIBC Profile January 02 1:40pm 1 Days Iron and TIBC Profile January 02 1:40pm 1 Days Ferritin January 02, 2025 1:40pm 1 Days Ferritin January 02, 2025 1:40pm 1 Days Apply O2 via Nasal Cannula 4 L to Maintain SpO2 of >=90% January 02, 2025 1:40pm January 23, 2025 12:00am Vitamin B12 January 01, 2025 12:00pm 3 Weeks Complete Blood Count Auto Diff January 01, 2025 12:00pm 3 Weeks Carcinoembryonic Antigen January 01, 2025 12:00pm 3 Weeks Iron and TIBC Profile January 01 12:00pm 3 Weeks Iron and TIBC Profile January 01 11:59am 1 Days Ferritin January 01, 2025 12:00pm 3 Weeks Complete Blood Count Auto Diff January 26, 2025 2:54pm 3 Weeks Carcinoembryonic Antigen January 26, 2025 2:54pm 3 Weeks Iron and TIBC Profile January 26 2:54pm 3 Weeks Ferritin January 26, 2025 2:54pm 3 Weeks Vit. B12/Folate Profile January 26, 2 025 2:54pm 3 Weeks Future Medications Future medication information is unavailable Patient Instructions Instruction Admit Date Hiatal hernia - Discharge in [facility] Hemorrhoids Discharge Instructions Know your MedDivya 2024 7:38am
[2025-01-27] VITALS (63 sets, daily range): BP systolic 52–117; BP diastolic 21–65; PULSE 54–75; TEMP 36.7; O2SAT 76–100; BMI 24.0
--- NOTE | 2025-01-27 16:35 | XR_ITS ---
The [address] [address] Patient Name: CAROL MCPHERSON MRN: [id number] date: 1945 Sex: M Assigned Patient Location: ED.MAIN Current Patient Location: ED.MAIN Accession/Order Number: [id number] Exam Date: 01/27/2025 16:45 Report Date: 01/27/2025 17:11 At the request of: ARIADNA YOUNG MD Procedure: XR chest 1V XR chest 1V 01/27/2025 4:54 PM SIGNS AND SYMPTOMS: Weakness, hypotension PROTOCOL: Frontal radiograph of the chest COMPARISON: 10/14/2024 FINDINGS: The trachea is midline. Sternotomy wires overlie the mediastinum. Atherosclerotic changes are noted in the thoracic aorta. The heart and mediastinal structures are within normal limits. Small bilateral pleural effusions are present with mild hazy airspace opacities near the lung bases. The bony thorax is intact. XR/XR chest 1V IMPRESSION: Small bilateral pleural effusions are present with mild hazy airspace opacities near the lung bases. Impression dictated by: Sreedhar Bhandari M.D. 01/27/2025 5:11 PM Dictation Location: [facility]ITAL[facility]ell[facility] Electronically authenticated by: [id number] Y Date: 01/27/2025 17:11
--- NOTE | 2025-01-27 16:35 | ECG_ITS ---
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 Measurements Intervals [place] Rate: 58 P: -[address] [place]: 224 QRS: 71 QRSD: 96 T: -59 QT: 398 QTc: 394 Interpretive Statements Sinus rhythm with first degree AV block [address] depression, probably digitalis effect ARTIFACT IN LEAD(S) 9150 abnormal ECG Compared to ECG 10/13/2024 05:07:17 ST (T wave) deviation now present Short [place] interval no longer present T-wave abnormality no longer present Possible ischemia still present Premature complexes no longer present Electronically Signed On 01-28-2025 10:29:59 EST by ABRIL GORDON M.D.
--- NOTE | 2025-01-27 16:36 | ED.GENADUL1 ---
HPI HPI - General Adult General Chief complaint: Weakness Stated complaint: WEAKNESS Time Seen by Provider: 01/27/25 16:39 Source: patient Mode of arrival: ambulance Limitations: no limitations History of Present Illness HPI narrative: 79-year-old male presented to the emergency department for a chief complaint of feeling weak. He states that this has happened several times today and it lasted for a few minutes. No syncope or palpitations or chest pain. No vomiting. He had a small amount of diarrhea last night and then this morning. No blood in it. No cough or chest pain or abdominal pain. No dysuria or hematuria. He says that the symptoms started today. Related Data Home Medications ?Medication ?Instructions ?Recorded ?Confirmed amitriptyline 25 mg tablet 25 mg PO .QHS PRN sleep 10/12/24 01/27/25 apixaban 5 mg tablet (Eliquis) 5 mg PO BID 10/12/24 01/27/25 empagliflozin 25 mg tablet 25 mg PO DAILY 10/12/24 10/12/24 (Jardiance) furosemide 40 mg tablet 20 mg PO QDAY 10/12/24 01/27/25 lisinopril 5 mg tablet 5 mg PO DAILY 10/12/24 01/27/25 metformin 500 mg tablet 500 mg PO DAILY 10/12/24 01/27/25 metoprolol tartrate 25 mg tablet 25 mg PO BID 10/12/24 01/27/25 mirtazapine 15 mg tablet 15 mg PO BEDTIME 10/12/24 01/27/25 pantoprazole 20 mg tablet,delayed 20 mg PO DAILY 10/12/24 01/27/25 release rosuvastatin 40 mg tablet 40 mg PO DAILY 10/12/24 01/27/25 sertraline 50 mg tablet 50 mg PO QDAY 10/12/24 01/27/25 spironolactone 25 mg tablet 25 mg PO DAILY 10/12/24 01/27/25 tamsulosin 0.4 mg capsule 0.4 mg PO BEDTIME 10/12/24 01/27/25 aspirin 81 mg tablet,delayed 81 mg PO DAILY 10/14/24 01/27/25 release Previous Rx's ?Medication ?Instructions ?Recorded budesonide-formoterol HFA 160 1 puff inhalation BID #10.2 grams 10/16/24 mcg-4.5 mcg/actuation aerosol inhaler (Symbicort) ipratropium 20 mcg-albuterol 100 1 puff inhalation Q4H PRN 10/16/24 mcg/actuation mist for inhalation shortness of breath or wheezing #4 (Combivent Respimat) grams isosorbide mononitrate 120 mg 120 mg PO DAILY #0 tabs 10/16/24 tablet,extended release 24 hr potassium chloride 20 mEq 20 meq PO DAILY #30 tabs 10/16/24 tablet,extended release Allergies Allergy/AdvReac Type Severity Reaction Status Date / Time No Known Drug Allergies Allergy Verified 01/27/25 16:33 Opioid HPI Opioid Management Most Recent Opioid Data: Last Pain Scale 0 10/15/24, 22:03 Last ORT Total Score 0 10/12/24, 21:06 Last ORT Risk Category Low Risk 10/12/24, 21:06 Review of Systems ROS Narrative A ten point review of systems is negative except as noted above. [facility] Medical History (Updated 01/27/25 @ 18:44 by Nadeem Faulkner MD) assisted current use of anticoagulant ?Z79.01 - salvage determiner (current) use of anticoagulants (ICD-10) Encounter for therapeutic drug monitoring ?Z51.81 - Encounter for therapeutic drug level monitoring (ICD-10) Callus ?L84 - Corns and callosities (ICD-10) Osteoarthritis ?M19.90 - Unspecified osteoarthritis, unspecified site (ICD-10) Onychomycosis of toenail ?B35.1 - Tinea unguium (ICD-10) Tobacco use ?Z72.0 - Tobacco use (ICD-10) Transient ischemic attack ?G45.9 - Transient cerebral ischemic attack, unspecified (ICD-10) Hyperlipidemia ?E78.5 - Hyperlipidemia, unspecified (ICD-10) Benign essential hypertension ?I10 - Essential (primary) hypertension (ICD-10) Anxiety disorder ?F41.9 - Anxiety disorder, unspecified (ICD-10) Paroxysmal atrial fibrillation ?I48.0 - Paroxysmal atrial fibrillation (ICD-10) Sensorineural hearing loss ?H90.5 - Unspecified sensorineural hearing loss (ICD-10) Noncompliance with treatment ?Z91.199 - Patient's noncompliance with other medical treatment and regimen due to unspecified reason (ICD-10) Depressive disorder ?F32.A - Depression, unspecified (ICD-10) Diabetic neuropathy ?E11.40 - Type 2 diabetes mellitus with diabetic neuropathy, unspecified (ICD-10) ESE (obstructive sleep apnea) ?G47.33 - Obstructive sleep apnea (adult) (pediatric) (ICD-10) Chronic insomnia ?F51.04 - Psychophysiologic insomnia (ICD-10) 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 - Congenital malformation of aorta unspecified (ICD-10) ?Q25.79 - Other congenital malformations of pulmonary artery (ICD-10) 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 due to asbestos and other mineral fibers (ICD-10) Vitamin D deficiency ?E55.9 - Vitamin D deficiency, unspecified (ICD-10) BPH (benign prostatic hyperplasia) ?N40.0 - Benign prostatic hyperplasia without lower urinary tract symptoms (ICD-10) CHF (congestive heart failure) ?I50.9 - Heart failure, unspecified (ICD-10) Injury of median nerve ?S54.10XA - Injury of median nerve at forearm level, unspecified arm, initial encounter (ICD-10) Disorder of sciatic nerve ?G57.00 - Lesion of sciatic nerve, unspecified lower limb (ICD-10) 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 - Lesion of femoral nerve, right lower limb (ICD-10) Paralysis of left femoral nerve ?G57.22 - Lesion of femoral nerve, left lower limb (ICD-10) Eczema ?L30.9 - Dermatitis, unspecified (ICD-10) Tinnitus ?H93.19 - Tinnitus, unspecified ear (ICD-10) PTSD (post-traumatic stress disorder) ?F43.10 - Post-traumatic stress disorder, unspecified (ICD-10) Myocardial infarct ?I21.9 - Acute myocardial infarction, unspecified (ICD-10) High cholesterol ?E78.00 - Pure hypercholesterolemia, unspecified (ICD-10) Surgical History (Updated 10/12/24 @ 20:01 by Bridget Gotti RN) 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 Smoking status: Current every day smoker Non-prescribed substance use: denies use Previous occupational history: retired Highest level of school completed/degree received: Bachelor's degree Are you now , , , , never or living with a partner: In a typical week, how many times do you talk on the telephone with family, friends, or neighbors: 3 or more times per week How often do you get together with friends or relatives: 3 or more times per week How often do you attend scientology or yazidism services: 4 or more times per year Little interest or pleasure in doing things: not at all Feeling down, depressed, or hopeless: not at all Feel stressed/tense/nervous/anxious/difficulty sleeping: not at all Do you think of yourself as: straight/heterosexual Gender Identity: male Exam Narrative Exam Narrative: Nurses note and vital signs reviewed General:The patient appears well and in no apparent distress.Patient is resting comfortably on cart. Skin:Warm, dry, no pallor noted.There is no rash noted. Head:Normocephalic, atraumatic Eye: Normal conjunctiva, no drainage Ears, Nose, Mouth, and Throat: oral mucosa is moist. Nares patent. Cardiovascular:Regular Rate and Rhythm Respiratory:Patient is in no distress, no accessory muscle use, lungs are clear to auscultation, no wheezing, rales or rhonchi Back:non-tender GI: Soft and nontender Musculoskeletal: The patient has no evidence of calf tenderness, no pitting edema, symmetrical pulses noted bilaterally Neurological:A&O, normal speech Psychiatric:Cooperative Constitutional Vital Signs, click to edit/add: Last Vital Signs Temp 98.0 F 01/27/25 16:28 Pulse 71 01/27/25 18:20 Resp 19 01/27/25 18:20 BP 97/56 01/27/25 18:16 Pulse Ox 98 01/27/25 18:16 O2 Del Method Room Air 01/27/25 16:28 Course Vital Signs Vital signs: Vital Signs Temperature 98.0 F 01/27/25 16:28 Pulse Rate 64 01/27/25 16:28 Respiratory Rate 14 01/27/25 16:28 Blood Pressure 85/36 L 01/27/25 16:28 Pulse Oximetry 99 01/27/25 16:28 Oxygen Delivery Method Room Air 01/27/25 16:28 Temperature 98.0 F 01/27/25 16:28 Pulse Rate 71 01/27/25 18:20 Respiratory Rate 19 01/27/25 18:20 Blood Pressure 97/56 01/27/25 18:16 Pulse Oximetry 98 01/27/25 18:16 Oxygen Delivery Method Room Air 01/27/25 16:28 Medical Decision Making MDM Narrative Medical decision making narrative: The patient presented with weakness and dizziness. He was found to be hypotensive and his blood pressure has been coming up with IV fluids being given. WBC is 14,000. Blood cultures were obtained. Troponin is negative. Creatinine is 2.05 which is elevated above his baseline. Urinalysis is pending and the patient is signed out to Dr. Leung at change of shift. The patient does not have a fever or cough. I do not clinically suspect pneumonia at this point. Differential Diagnosis Differential Diagnosis: Hypovolemia, UTI, pneumonia Lab Data Lab results reviewed: Yes I reviewed the patient's lab results Labs: Lab Results 01/27/25 Range/Units 16:30 WBC 14.2 H (4.0-11.0) 10^3/uL RBC 4.72 (4.70-6.10) 10^6/uL Hgb 11.3 L (14.0-18.0) g/dL Hct 35.6 L (42.0-54.0) % MCV 75.4 L (80.0-94.0) fL MCH 23.9 L (25.9-34.0) pg MCHC 31.7 (29.9-35.2) g/dL RDW 23.5 H (11.0-15.0) % Plt Count 227 (150-450) 10^3/uL MPV 10.8 (9.5-13.5) fL Neut % (Auto) 76.9 H (43.0-75.0) % Lymph % (Auto) 10.0 L (20.5-60.0) % [place] % (Auto) 9.2 (1.7-12.0) % Eos % (Auto) 1.4 (0.9-7.0) % Baso % (Auto) 0.5 (0.2-2.0) % Neut # (Auto) 10.9 H (1.4-6.5) 10^3/uL Lymph # (Auto) 1.4 (1.2-3.8) 10^3/uL [place] # (Auto) 1.3 H (0.3-0.8) 10^3/uL Eos # (Auto) 0.2 (0.0-0.7) 10^3/uL Baso # (Auto) 0.1 (0.0-0.1) 10^3/uL Abs Immat Gran (auto) 0.28 H (0.00-0.03) 10^3/uL Imm/Tot Granulo (auto) 2.0 H (0.0-0.5) % Sodium 137 (136-145) mmol/L Potassium 2.8 L* (3.5-5.1) mmol/L Chloride 100 (98-107) mmol/L Carbon Dioxide 31.2 (21.0-32.0) mmol/L Anion Gap 8.6 BUN 14.0 (7.0-18.0) mg/dL Creatinine 2.05 H (0.70-1.30) mg/dL Est GFR ( Amer) 38 L (>=60 mL/min/1.73m^2) Est GFR (Non-Af Amer) 32 L (>=60 mL/min/1.73m^2) BUN/Creatinine Ratio 6.8 Glucose 127 H (74-106) mg/dL Lactate 1.9 (0.4-2.0) mmol/L Calcium 9.0 (8.5-10.1) mg/dL Troponin I High Sens 14.3 (4.0-76.1) pg/mL Imaging Data Chest x-ray: Radiologist's impression: ITS Impressions Chest X-Ray 01/27/25 16:35 IMPRESSION: Small bilateral pleural effusions are present with mild hazy airspace opacities near the lung bases. Impression dictated by: Sreedhar Bhandari M.D. 01/27/2025 5:11 PM Dictation Location: [place] [address] Electronically authenticated by: [id number] Y Date: 01/27/2025 17:11 Discharge Plan Discharge Patient Disposition: Still a Patient
[2025-01-27] MEDS: 0.9 % SODIUM CHLORIDE 500 ML IV (16:44)
[2025-01-27 16:45] LABS: Hematocrit 35.6 % (42.0-54.0); Hemoglobin 11.3 g/dL (14.0-18.0); Immature Granulocytes Abs Auto 0.28 10^3/uL (0.00-0.03); Immature Granulocytes Pct Auto 2.0 % (0.0-0.5); Lymphocytes Absolute Auto 1.4 10^3/uL (1.2-3.8); Mean Corpuscular HGB Conc 31.7 g/dL (29.9-35.2); Mean Corpuscular Hemoglobin 23.9 pg (25.9-34.0); Platelet Count 227 10^3/uL (150-450); Red Blood Count 4.72 10^6/uL (4.70-6.10); White Blood Count 14.2 10^3/uL (4.0-11.0)
[2025-01-27 17:01] LABS: Anion Gap 8.6; Blood Urea Nitrogen 14.0 mg/dL (7.0-18.0); Calcium 9.0 mg/dL (8.5-10.1); Carbon Dioxide 31.2 mmol/L (21.0-32.0); Chloride 100 mmol/L (98-107); Estimated GFR (African America 38 (>=60 mL/min/1.73m^2); Estimated GFR (Non-African Ame 32 (>=60 mL/min/1.73m^2); Glucose 127 mg/dL (74-106); Sodium 137 mmol/L (136-145)
[2025-01-27 17:08] LABS: Mean Corpuscular Volume 75.4 fL (80.0-94.0)
[2025-01-27 17:09] LABS: Potassium 2.8 mmol/L (3.5-5.1)
--- OUTSIDE RECORDS SUMMARY | 2025-01-27 17:33 | XMS_ITS | Clinical Summary ---
Author Organization [facility] Address [address], [address] [place] [address] Care Team Providers Care Battery Service Technician Name Role Phone Unavailable Primary Care Provider Unavailabl e Allergies Active AllergyReactionsCriticalityNoted CxseJlnhcpykRmunh63/01/2000 Vicryl Sutures Medications MedicationSigDispense QuantityRefillsLast FilledStart DateEnd DateStatus amitriptyline (ELAVIL) 25 MG tablet Daily5Active apixaban (ELIQUIS) 5 MG TABS tablet Twice daily5Active empagliflozin (JARDIANCE) 25 MG tablet Daily5Active folic acid (FOLVITE) 400 MCG tablet Take 1 tablet by mouth dailyActive isosorbide mononitrate (IMDUR) 120 MG extended release tablet Twice daily5Active lisinopril (PRINIVIL;ZESTRIL) 5 MG tablet Daily5Active magnesium oxide (MAG-OX) 400 MG tablet Take 1 tablet by mouth daily5Active Melatonin 5 MG CAPS Take by mouthActive metFORMIN (GLUCOPHAGE) 500 MG tablet Daily5Active metoprolol tartrate (LOPRESSOR) 25 MG tablet Twice daily5Active mirtazapine (REMERON) 15 MG tablet Daily5Active nicotine (NICODERM CQ) 14 MG/24HR Refill(s) 0, TRANSDERMAL, 0 Refill(s)5Active pantoprazole (PROTONIX) 20 MG tablet Daily4Active potassium chloride (KLOR-CON M) 20 MEQ extended release tablet Take 1 tablet by mouth 2 times daily5Active ranolazine (RANEXA) 500 MG extended release tablet Twice daily5Active rosuvastatin (CRESTOR) 40 MG tablet Daily5Active sertraline (ZOLOFT) 50 MG tablet Daily5Active spironolactone (ALDACTONE) 25 MG tablet Daily5Active tamsulosin (FLOMAX) 0.4 MG capsule daily12/07/2024tive furosemide (LASIX) 40 MG tablet Take 1 tablet by mouth daily5Active ipratropium 0.5 mg-albuterol 2.5 mg (DUONEB) 0.5-2.5 (3) MG/3ML SOLN nebulizer solution Inhale 3 mLs into the lungs every 4 hours as needed for Shortness of Breath Active vitamin D (VITAMIN D3) 50 MCG (2000 UT) CAPS capsule Take 1 capsule by mouth dailyActive Aspirin 81 MG CAPS DailyDiscontinued(Therapy completed) furosemide (LASIX) 20 MG tablet dailyDiscontinued(Therapy completed) Active Problems ProblemNoted DateDiagnosed DateMalignant neoplasm of lower third of esophagus 01/15/2025 Encounters DateTypeDepartmentCare BymnMddgubbxdnf09/01/2025 2:00 PM ESTOffice Visit [facility] [address] [place] [address] [address] [place] [id number] Ronnie Hernandez MD Malignant neoplasm of lower third of esophagus (HCC) (Primary Dx)from Last 3 Months Social History Tobacco UseTypesPacks/DayYears UsedDateSmoking Tobacco: FormerCigarettes Smokeless Tobacco: FormerSex and Gender InformationValueDate RecordedSex Assigned at WuptoUoqi52/24/2025 12:05 PM ESTLegal PieNvpa1803/27/2012 3:17 PM EST Gender JkoixfqtCndi48/24/2025 12:05 PM ESTSexual XdtofqadeuwVednjqwp60/24/2025 12:05 PM EST Last Filed Vital Signs Vital SignReadingTime TakenCommentsBlood Pressure--Fipuw862701/15/2025 1:56 PM EST Wesywgkiooe17.4 ??C (97.6 ??F)01/15/2025 1:56 PM ESTRespiratory Rate--Oxygen Usoewazyep63%01/15/2025 1:56 PM ESTInhaled Oxygen Concentration--Zmssrq78 kg (150 lb)01/15/2025 1:56 PM ZCQWfkmdh746.9 cm (5' 6.5 )01/15/2025 1:56 PM ESTBody Mass Index23.8501/15/2025 1:56 PM EST Plan of Treatment Health MaintenanceDue DateLast OoiwRmqdppmqNqdoea56/01/1957Depression Screen 1958Hepatitis C tdrybj9907/16/1964Annual Wellness Visit (Medicare)01/08/2025 DTaP/Tdap/Td vaccine (3 - Td or Tdap), 04/27/2021hingles pyunhcpUkrespeqp10/25/2022, 10/30/2020espiratory Syncytial Virus (RSV) or age 60 yrs+Yrpzqgwmx93/07/2025Pneumococcal 50+ years VaccineCompleted 10/19/2024, 02/12/2016, 11/06/2014, Additional history existsCOVID-19 Vaccine Uavgbiwjy92/12/2025, 12/14/2023, 12/29/2022, Additional history existsFlu gjkhxltAjchtrwap64/12/2025, 11/11/2023, 11/12/2022, Additional history exists Hepatitis A vaccineAged OutNo longer eligible based on patient's age to complete this topicHepatitis B vaccineAged OutNo longer eligible based on patient's age to complete this topicHib vaccineAged OutNo longer eligible based on patient's age to complete this topicMeningococcal (ACWY) vaccineAged OutNo longer eligible based on patient's age to complete this topicMeningococcal B vaccineAged OutNo longer eligible based on patient's age to complete this topicPolio vaccineAged OutNo longer eligible based on patient's age to complete this topic Insurance
--- OUTSIDE RECORDS SUMMARY | 2025-01-27 17:33 | XMS_ITS | Encounter Summary ---
Author Organization [facility] Address [address] [place] [address] Care Team Providers Care Coin Machine Supervisor Name Role Phone Millicent Crowder ANATOMY AND PHYSIOLOGY INSTRUCTOR Primary Care Provider [phone] Reason for Visit * ReasonOnset DateCommentssurgery /11/2025 Encounter Details DateTypeDepartmentCare Team (Latest Contact Info)Vnhvktctyyg47/11/2025Telephone [facility] Vascular and Endovascular Surgery [address] [place] [phone] Eveline Bowens, LORIN surgery scheduling Social History Tobacco UseTypesPacks/DayYears UsedDateSmoking Tobacco: FormerCigarettes Smokeless Tobacco: NeverAlcohol UseStandard Drinks/WeekCommentsNot Currently0 (1 standard drink = 0.6 oz pure alcohol)UT Safety & EnvironmentAnswerDate Recorded Fear of Current or Ex-PartnerNot on file04/08/2023Emotionally AbusedNot on file 4Physically AbusedNot on file04/08/2023Sexually AbusedNot on file 4Physically or Sexually AbusedNot on file04/08/2023Sex and Gender InformationValueDate RecordedSex Assigned at RdxhgIcyl67/24/2025 6:33 PM EDT Legal PilWuvn9608/13/2021 9:43 PM EDTGender OjronsmaYcph04/24/2025 6:33 PM EDT Sexual OrientationHeterosexual or Ithtkaez02/24/2025 6:33 PM EDTdocumented as of this encounter Miscellaneous Notes * Telephone Encounter - Eveline LORIN Bowens - 01/25/2025 9:40 AM EST LVM for patient to call the office to schedule documented in this encounter Plan of Treatment DateTypeDepartmentCare Team (Latest Contact Info)Odmvvlymnkh71/06/2026 10:30 AM ESTHospital Encounter [facility] [place] [facility] [address] [place] [address] Thania Cabral MD [address] [place] [phone] Pre-op yhujocspsd16/06/2026 10:30 AM EST - 02/20/2025 11:30 AM ESTSurgery [facility] [address] [place] [address] Thania Cabral MD [address] [place] [address] Coronary angiographydocumented as of this encounter Visit Diagnoses Not on filedocumented in this encounter Care Teams Team MemberRelationshipSpecialtyStart DateEnd Date Millicent Crowder NP [address] [facility] [place] [address] PCP - GeneralFamily Qsruadlu79/11/25documented as of this encounter
--- OUTSIDE RECORDS SUMMARY | 2025-01-27 17:33 | XMS_ITS | Clinical Summary ---
Author Organization [facility] Address [address] [place] [address] Care Team Providers Care Trick Rodeo Rider Name Role Phone Unavailable Primary Care Provider Unavailabl e Encounters DateTypeDepartmentCare SqjyDvfkaxzhqyp96/21/2025External Result Encounter [facility] Unsolicited Slick Lynne, DO 01/05/2025External Result Encounter [facility] Unsolicited Slick Lynne, DO 01/01/2025External Result Encounter [facility] Unsolicited Slick Lynne, DO 01/01/2025External Result Encounter [facility] Unsolicited Slick Lynne, DO 01/01/2025External Result Encounter [facility] Unsolicited Slick Lynne, DO from Last 3 Months Social History Tobacco UseTypesPacks/DayYears UsedDateSmoking Tobacco: Never AssessedSex and Gender InformationValueDate RecordedSex Assigned at BirthNot on fileLegal Sex Male04/29/2022 7:34 PM EDTGender IdentityNot on fileSexual OrientationNot on file Plan of Treatment Not on file Procedures Procedure NamePriorityDate/TimeAssociated DiagnosisCommentsCT ABDOMEN PELVIS W IV ZZEXMRJV98/21/2025 3:40 PM EST FGYECRPPTMUUOI01/21/2025 1:50 PM EST UREA NITROGEN, BODY CGPJGIJHZ75/21/2025 1:50 PM EST SCAN AND GAMNcosxki38/17/2025 12:32 PM EST IRON AND TOTAL IRON BINDING NEDMGHOWYvxuxfw86/17/2025 12:32 PM EST VIT. B12/FOLATE BOZIRVVEjgrzxw70/17/2025 12:32 PM EST JNIKJPRETgycvuc86/17/2025 12:32 PM EST CARCINOEMBRYONIC YBZFNGTGvyofgn20/17/2025 12:32 PM EST COMPREHENSIVE METABOLIC IPQEFUfnphdc81/17/2025 12:32 PM EST from Last 3 Months Results * CT abdomen pelvis w IV contrast (01/05/2025 3:40 PM EST)Anatomical Region LateralityModalityBody, Pelvis, AbdomenComputed TomographySpecimen (Source) Anatomical Location / LateralityCollection Method / VolumeCollection Time Received Time01/05/2025 3:40 PM EST Impressions 01/05/2025 3:[address] evidence of metastatic disease. ? Bilateral pleural calcifications suggestive of prior asbestos exposure. ? Cholelithiasis. ? Impression dictated by: Mukesh Pisano Jr., DAlejandroOAlejandro ??01/05/2025 3:45 PM ? Dictation Location: RADIO-PC-22 ? Transcribed By: ? PWS ?01/05/25 1545 ? Dictated By: ?Mukesh Pisano Jr, DO ?01/05/25 1540 ? Signed By: <Electronically signed by Mukesh Pisano Jr DO in OV> ?01/05/25 1545 Narrative 01/05/2025 3:48 PM EST [facility] ?[facility] ?[address] ? [place] [address] ? CT Scan Report ? Signed ? Patient: Renita,Waldo L ?MR#: [id number] ?? [id number] ? : 1945 ?Acct:[id number] ? Age/Sex: 79 / M ?ADM Date: 01/05/25 ? Loc: XT ?Room: ?Type: REG RCR ?? Attending Dr: Slick Lynne II DO ?? Copies to: Slick Lynne II, DO ? Ordering Provider: Slick Lynne II, DO ?? Date of Service: 01/05/25 ?? 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 CT CHEST, ABDOMEN AND PELVIS WITH INTRAVENOUS CONTRAST: ? CLINICAL HISTORY: Stomach cancer initial staging. ? COMPARISON: None ? TECHNIQUE: ??Spiral images were obtained through the chest, abdomen and pelvis following the administration of IV contrast. ??This CT exam was performed using one or more following dose reduction techniques: Automated exposure control, adjustment of the mA and/or kV according to patient size, or use of iterative reconstruction technique. ? FINDINGS: ? CT chest: ? Mediastinum:Thoracic aorta appears normal in caliber. ??Pulmonary trunk appears nondilated. ??No pericardial effusion. ??Severe coronary artery calcifications. ??No lymphadenopathy. ??The esophagus is grossly unremarkable. ??Small hiatal hernia. ? Lungs:Bilateral pleural calcifications. ??Mild reticular changes. ??No consolidation pneumothorax or pleural effusion. ??Emphysema. ??Calcified anulus. ? Soft tissues/Bones: No acute findings. ??Sternotomy wires are present. ??Osseous structures demonstrate degenerative change. ? CT abdomen and pelvis: ? Organs:Cholelithiasis. ??Liver portal vein pancreas spleen all appear unremarkable. ??Thickening involving the adrenal glands bilaterally. ??No enhancing renal mass or hydronephrosis. ??Abdominal aorta demonstrates no aneurysm.[ ? GI: Stomach is mildly distended without measurable lesion. ??Small bowel appears nondilated. ??No acute colonic abnormality.[ ? Pelvis:[Urinary bladder and prostate gland appear unremarkable.] ? Peritoneum/Retroperitoneum:No free air or free fluid or lymphadenopathy.[ ? Abd wall/Bones:Abdominal wall demonstrates no acute findings. ??Osseous structures demonstrate degenerative change.[ ? CT/CT chest w con ?? Procedure Note Mukesh Pisano Jr., DO - 01/05/2025 [facility] [address] [place] [address] CT Scan Report Signed Patient: Waldo Maravilla LMR#: [id number] : 7Acct:[id number] Age/Sex: 79 / MADM Date: 01/05/25 Loc: Room:Type: [facility] Attending Dr: Slick Lynne II DO Copies to: Slick Lynne II, DO Ordering Provider: Slick Lynne II, DO Date of Service: 01/05/25 CT/CT chest w con: C16.0 - Malignant neoplasmof cardia ([id number]) CT/CT abdomen pelvis w con: C16.0 - Malignant neoplasm ofcardia CT CHEST, ABDOMEN AND PELVIS WITH INTRAVENOUS CONTRAST: CLINICAL HISTORY: Stomach cancer initial staging. COMPARISON: None TECHNIQUE: Spiral images were obtained through the chest, abdomen andpelvis following the administration of IV contrast. This CT exam was performed using one ormore following dose reduction techniques: Automated exposure control, adjustment of the mAand/or kV according to patient size, or use of iterative reconstruction technique. FINDINGS: CT chest: Mediastinum:Thoracic aorta appears normal in caliber. Pulmonary trunkappears nondilated. No pericardial effusion. Severe coronary artery calcifications. Nolymphadenopathy. The esophagus is grossly unremarkable. Small hiatal hernia. Lungs:Bilateral pleural calcifications. Mild reticular changes. Noconsolidation pneumothorax or pleural effusion. Emphysema. Calcified anulus. Soft tissues/Bones: No acute findings. Sternotomy wires are present.Osseous structures demonstrate degenerative change. CT abdomen and pelvis: Organs:Cholelithiasis. Liver portal vein pancreas spleen all appearunremarkable. Thickening involving the adrenal glands bilaterally. No enhancing renal mass or hydronephrosis. Abdominal aorta demonstrates no aneurysm.[ GI: Stomach is mildly distended without measurable lesion. Small bowelappears nondilated. No acute colonic abnormality.[ Pelvis:[Urinary bladder and prostate gland appear unremarkable.] Peritoneum/Retroperitoneum:No free air or free fluid or lymphadenopathy.[ Abd wall/Bones:Abdominal wall demonstrates no acute findings. Osseousstructures demonstrate degenerative change.[ CT/CT chest w con IMPRESSION: No CT evidence of metastatic disease. Bilateral pleural calcifications suggestive of prior asbestos exposure. Cholelithiasis. Impression dictated by: Mukesh Pisano Jr., D.O. 01/05/2025 3:45 PM Dictation Location: [place] [address] Transcribed By: [facility] 01/05/25 1545 Dictated By: Mukesh Pisano Jr, DO 01/05/25 1540 Signed By: <Electronically signed by Mukesh Pisano Jr, DO inOV> 01/05/25 1545 Authorizing ProviderResult TypeResult StatusSlick Lynne [facility] CT PROCEDURESFinal Result * Urea nitrogen, body fluid (01/05/2025 1:50 PM EST)ComponentValueRef RangeTest MethodAnalysis TimePerformed AtPathologist ElwgfmxgiSKQ14 - 25 mg/dL01/05/2025 2:[address] [facility] CtrSpecimen (Source)Anatomical Location / LateralityCollection Method / VolumeCollection TimeReceived TimeOther Topography unknown / Pfhybmd3501/05/2025 1:50 PM EST01/05/2025 2:02 PM EST [facility] 01/05/2025 2:17 PM EST STAT FOR CT Authorizing ProviderResult TypeResult StatusSlick Lynne DOLAB BODY FLUIDS AND STOOLS ORDERABLESFinal ResultPerforming OrganizationAddress City/State/ZIP CodePhone Number [address] [address], [facility] [address] [place] [address] * (ABNORMAL) Creatinine (01/05/2025 1:50 PM EST)ComponentValueRef RangeTest MethodAnalysis TimePerformed AtPathologist SignatureCREATININE1.36(H)0.70 - 1.30 mg/dL01/05/2025 2:[address] [facility] [facility] CtrESTIMATED GFR 53.0477201/05/2025 2:[address] [facility] CtrCREATININE CLR CALC QQHLMUDS96.40103/07/2024 2:[address] [facility] CtrSpecimen (Source)Anatomical Location / LateralityCollection Method / VolumeCollection TimeReceived TimeOtherTopography unknown / Ptlmgmf8901/05/2025 1:50 PM EST 01/05/2025 2:02 PM EST Narrative [facility] - 01/05/2025 2:17 PM EST STAT FOR CT Authorizing ProviderResult TypeResult StatusTimriana Lynne DOL BLOOD ORDERABLESFinal ResultPerforming OrganizationAddJefferson [facility]/State/ZIP CodePhone Number [address] [address], [facility] [address] [place] [address] * (ABNORMAL) SCAN AND CBC (01/01/2025 12:32 PM EST)ComponentValueRef RangeTest MethodAnalysis TimePerformed AtPathologist SignatureWBC7.84.1 - 10.5 [CFU]/mL 01/01/2025 1:[address] [facility] CtrUNCORRECTED WHITE BLOOD COUNT7.84.1 - 10.5 10*3/uL01/01/2025 1:[address] [facility] RBC4.593.90 - 5.60 10*6/uL01/01/2025 1:[address] [facility] AJXESBEBQK73.9(L)13.0 - 17.0 g/dL01/01/2025 1:[address] [facility] GwoGAKBTQVURW90.4(L)38.8 - 50.0 %01/01/2025 1:[address] [facility] UdgPTL38.7(L)83.5 - 101 fL01/01/2025 1:[address] [facility] UtqGHF92.8(L)27.5 - 35.2 pg01/01/2025 1:[address] [facility] IqjIDBM49.832.5 - 35.6 g/dL01/01/2025 1:[address] [facility] CtrRED CELL DISTRIBUTION WIDTH, RDW25.1(H)12.0 - 14.8 % 01/01/2025 1:[address] [facility] CtrPLATELET PEUQK409252 - 450 10*3/uL01/01/2025 1:[address] [facility] CtrMEAN PLATELET VOLUME, MPV10.06.6 - 10.1 fL01/01/2025 1:[address] [facility] CtrNEUTROPHILS, %68.7. %01/01/2025 2:[address] [facility] LYMPHOCYTES, %17.1. %01/01/2025 2:[address] [facility] MONOCYTE/MACROPHAGE, %11.4. %01/01/2025 2:[address] [facility] CtrEOSINOPHILS, %2.1. %01/01/2025 2:[address] [facility] BASOPHILS, %0.7. %01/01/2025 2:[address] [facility] CtrNRBC0.00 - 0.5 /100{WBC}01/01/2025 2:[address] [facility] NEUTROPHILS5.41.8 - 7.7 10*3/uL01/01/2025 2:[address] [facility] CtrLYMPHOCYTES1.31.00 - 4.8 10*3/uL01/01/2025 2:[address] [facility] CtrMONOCYTES0.9(H)0.0 - 0.8 10*3/uL01/01/2025 2:55 PM [facility] CtrEOSINOPHILS0.20.0 - 0.45 10*3/uL01/01/2025 2:[address] [facility] CtrBASOPHILS0.10.0 - 0.2 10*3/uL01/01/2025 2:[address] [facility] XqlQBQIVKVJKXZRYWgujfc10/17/2025 2:[address] [facility] VxkXFGUJFNWYVVWHLllkbh13/17/2025 2:55 PM [facility] XdzMXLWSTGASIECYvbeiotl41/17/2025 2:55 PM [facility] CmrCSZVYGEKSGPGIwgywdpr95/17/2025 2:55 PM [facility] CtrTEAR DROP LGSTTIsseud50/17/2025 2:55 PM [facility] XglEEDPXGCMXWDpezbl90/17/2025 2:[address] [facility] CtrPLATELET TISEQSFHJnxmunXiigzm70/17/2025 2:55 PM [facility] CtrPLATELET MVXKKJMMHXTwttddAnewzb35/17/2025 2:[address] [facility] CtrSpecimen (Source)Anatomical Location / LateralityCollection Method / VolumeCollection TimeReceived TimeBlood (Blood) 01/01/2025 12:32 PM EST01/01/2025 12:32 PM EST Narrative Authorizing ProviderResult TypeResult StatusSlick Lynne DOLAB BLOOD ORDERABLESFinal ResultPerforming OrganizationAddressCity/State/ZIP CodePhone Number [facility] [address] [place] [address], [facility] [address] [place] [address] * CARCINOEMBRYONIC ANTIGEN (01/01/2025 12:32 PM EST)ComponentValueRef RangeTest MethodAnalysis TimePerformed AtPathologist SignatureCARCINOEMBRYONIC ANTIGEN 2.90.0 - 3.0 ng/mL01/01/2025 2:[address] [facility] CtrComment: Serial tumor marker results determined by assays using different manufacturers or methods may not be comparable. [facility] mixed animal veterinarian and method: GARTH UNICSeatSwapr DXI, ??2 SITE IMMUNOENZYMATIC ???SANDWICH?? ASSAY. Specimen (Source)Anatomical Location / LateralityCollection Method / Volume Collection TimeReceived TimeOtherTopography unknown / Rntfxvp7601/01/2025 12:32 PM EST01/01/2025 12:32 PM EST Narrative Authorizing ProviderResult TypeResult StatusMichaelriana Nikolai Guera DOLAB BLOOD ORDERABLESFinal ResultPerforming OrganizationAddressCity/State/ZIP CodePhone Number [address] [address], [facility] [address] [place] [address] * (ABNORMAL) VIT. B12/FOLATE PROFILE (01/01/2025 12:32 PM EST)ComponentValueRef RangeTest MethodAnalysis TimePerformed AtPathologist SignatureVITAMIN B121,033 (H)180 - 914 pg/mL01/01/2025 2:[address] [facility] CtrFOLATE 29.0>5.9 ng/mL01/01/2025 3:[address] [facility] CtrComment: Folate reference range: >5.9 ng/ml The WHO technical consultation on folate and vitamin b12 deficiencies has determined that folate concentrations less than 4 ng/ml are considered deficient. Specimen (Source)Anatomical Location / LateralityCollection Method / Volume Collection TimeReceived TimeOtherTopography unknown / Obynzuv5201/01/2025 12:32 PM EST01/01/2025 12:32 PM EST Narrative [facility] - 01/01/2025 3:20 PM EST FE TIBC ADDED ON TO PREVIOUS REQUISITION SOPHIA MISSED ORDER WHEN TUBE WAS DRAWN, ADDED ON PER CANCER CENTER Authorizing ProviderResult TypeResult StatusSlick Albajane DOL BLOOD ORDERABLESFinal ResultPerforming OrganizationAddressCity/State/ZIP CodePhone Number [address] [address], [facility] [address] [place] [address] * (ABNORMAL) Iron and TIBC (01/01/2025 12:32 PM EST)ComponentValueRef RangeTest MethodAnalysis TimePerformed AtPathologist PkuqjtbldTGEQ00(L)50 - 212 ug/dL 01/01/2025 2:[address] [facility] CtrTOTAL IRON BINDING MINHMMLI951495 - 450 ug/dL01/01/2025 2:[address] [facility] % IRON SATURATION6.3(L)20 - 50 %01/01/2025 2:[address] [facility] ZxuOSTLDFGKWJO083111 - 362 mg/dL01/01/2025 2:[address] [facility] CtrSpecimen (Source)Anatomical Location / Laterality Collection Method / VolumeCollection TimeReceived TimeOtherTopography unknown / Ybyykiq3001/01/2025 12:32 PM EST01/01/2025 12:32 PM EST Narrative [facility] - 01/01/2025 3:20 PM EST FE TIBC ADDED ON TO PREVIOUS REQUISITION SOPHIA MISSED ORDER WHEN TUBE WAS DRAWN, ADDED ON PER CANCER CENTER Authorizing ProviderResult TypeResult StatusSlick BowdenbobbySt. Mary's Regional Medical Center BLOOD ORDERABLESFinal ResultPerforming OrganizationAddressty/State/ZIP CodePhone Number [facility] [address] [place] [address], [facility] [address] [place] [address] * (ABNORMAL) Ferritin (01/01/2025 12:32 PM EST)ComponentValueRef RangeTest MethodAnalysis TimePerformed AtPathologist ViqapiioqNGUPFYYI75.8(L)23.9 - 336.2 ng/mL01/01/2025 2:[address] [facility] CtrSpecimen (Source)Anatomical Location / LateralityCollection Method / VolumeCollection TimeReceived TimeOtherTopography unknown / Sckmwho0301/01/2025 12:32 PM EST 01/01/2025 12:32 PM EST [facility] - 01/01/2025 3:20 PM EST FE TIBC ADDED ON TO PREVIOUS REQUISITION SOPHIA MISSED ORDER WHEN TUBE WAS DRAWN, ADDED ON PER CANCER CENTER Authorizing ProviderResult TypeResult StatusSlick BowdenM[facility] BLOOD ORDERABLESFinal ResultPerforming [facility] CenterAddJeff[facility]/State/ZIP CodePhone Number [facility] [address] [place] [address], [facility] [address] [place] [address] * (ABNORMAL) Comprehensive metabolic panel (01/01/2025 12:32 PM EST)Component ValueRef RangeTest MethodAnalysis TimePerformed AtPathologist SignatureGlucose 7670 - 100 mg/dL01/01/2025 2:[address] CtrComment: Random Glucose Reference Range is dependent on time and content of last meal. Glucose of more than 200 mg/dL in a nonstressed, ambulatory subject supports the diagnosis of Diabetes Mellitus. ADA recommended reference range WHD890 - 25 mg/dL01/01/2025 2:[address] [facility] CtrCREATININE 1.32(H)0.70 - 1.30 mg/dL01/01/2025 2:[address] [facility] ESTIMATED GFR55. 2:[address] [facility] RlbZxbzvw751 136 - 145 mmol/L103/03/2024 2:[address] [facility] CtrPotassium, Bld4.53.5 - 5.1 mmol/L103/03/2024 2:[address] [facility] Oppijkme83665 - 107 mmol/L103/03/2024 2:[address] [facility] Carbon Fakdmnm74.721.0 - 31.0 mmol/L103/03/2024 2:[address] [facility] CtrAnion Gap12.86.0 - 15.011 2:[address] [facility] CtrCalcium9.28.6 - 10.3 mg/dL01/01/2025 2:[address] [facility] CtrTOTAL PROTEIN7.06.4 - 8.9 g/dL01/01/2025 2:[address] [facility] CtrALBUMIN LEVEL4.03.5 - 5.7 g/dL01/01/2025 2:12 PM [facility] CtrGLOBULIN3.0g/dL01/01/2025 2:[address] [facility] CtrALBUMIN/GLOBULIN RATIO1.311 2:[address] [facility] CtrBILIRUBIN,TOTAL0.40.3 - 1.0 mg/dL01/01/2025 2:12 PM [facility] CtrASPARTATE AMINO HCLIJPLTQTC3139 - 39 U/L103/03/2024 2:[address] [facility] CtrALANINE JPYHSXEZYNAGHVWT013 - 52 U/L 01/01/2025 2:[address] [facility] CtrALKALINE UGAAMCIBNFO3539 - 104 U/L103/03/2024 2:[address] [facility] CtrCREATININE CLR CALC JIBRNWOK16.6201/01/2025 2:[address] [facility] CtrSpecimen (Source)Anatomical Location / LateralityCollection Method / VolumeCollection TimeReceived TimeOtherTopography unknown / Pecqnxl3601/01/2025 12:32 PM EST 01/01/2025 12:32 PM EST Narrative [facility] - 01/01/2025 3:20 PM EST FE TIBC ADDED ON TO PREVIOUS REQUISITION SOPHIA MISSED ORDER WHEN TUBE WAS DRAWN, ADDED ON PER CANCER CENTER Authorizing ProviderResult TypeResult StatusSlick Lynne DOLAB BLOOD ORDERABLESFinal ResultPerforming OrganizationAddressCity/State/ZIP CodePhone Number [facility] [address] [place] [address], [facility] [address] [place] [address] from Last 3 Months
--- OUTSIDE RECORDS SUMMARY | 2025-01-27 17:33 | XMS_ITS | Encounter Summary ---
Author Organization The [facility] Address [address] [place] [address] Care Team Providers Care Hotel Valet Attendant Name Role Phone Millicent Crowder HEAD HOLDER Primary Care Provider [phone] Encounter Details DateTypeDepartmentCare Team (Latest Contact Info)Xeqeunuabin33/11/2025Orders Only [facility] [address] [place] [address] Kylah Doyle MA Pre-op evaluation (Primary Dx); Chronic heart failure with preserved ejection fraction (HFpEF) (CMS/HCC) Social History Tobacco UseTypesPacks/DayYears UsedDateSmoking Tobacco: FormerCigarettes Smokeless Tobacco: NeverAlcohol UseStandard Drinks/WeekCommentsNot Currently0 (1 standard drink = 0.6 oz pure alcohol)UT Safety & EnvironmentAnswerDate Recorded Fear of Current or Ex-PartnerNot on file04/08/2023Emotionally AbusedNot on file 4Physically AbusedNot on file04/08/2023Sexually AbusedNot on file 4Physically or Sexually AbusedNot on file04/08/2023Sex and Gender InformationValueDate RecordedSex Assigned at HdsqbWnck61/24/2025 6:33 PM EDT Legal BmqPllq9608/13/2021 9:43 PM EDTGender TpwvdkhhSaze48/24/2025 6:33 PM EDT Sexual OrientationHeterosexual or Xyczubek83/24/2025 6:33 PM EDTdocumented as of this encounter Plan of Treatment DateTypeDepartmentCare Team (Latest Contact Info)Unpukcgjwyr40/06/2026 10:30 AM ESTHospital Encounter [facility] [place] [facility] [address] [place] [address] Thania Cabral MD [address] [place] [address] Pre-op pumdqbmndv34/06/2026 10:30 AM EST - 02/20/2025 11:30 AM ESTSur[facility] [address] [place] [address] Thania Cabral MD [address] [place] [address] Coronary angiographyNameTypePriorityAssociated DiagnosesOrder ScheduleCBC and differentialLabRoutine Pre-op evaluation Chronic heart failure with preserved ejection fraction (HFpEF) (CMS/HCC) Expected: 01/25/2025 (Approximate), Expires: 01/25/2026asic metabolic panelLab Routine Pre-op evaluation Chronic heart failure with preserved ejection fraction (HFpEF) (CMS/HCC) Expected: 01/25/2025 (Approximate), Expires: 01/25/2026documented as of this encounter Visit Diagnoses Diagnosis Pre-op evaluation- Primary Chronic heart failure with preserved ejection fraction (HFpEF) (CMS/HCC) Pre-op evaluation- Primary Pre-op evaluation documented in this encounter Care Teams Team MemberRelationshipSpecialtyStart DateEnd Date Millicent Crowder NP [address] [place] [address] PCP - GeneralFamily Xjgbdvbx34/11/25documented as of this encounter
--- OUTSIDE RECORDS SUMMARY | 2025-01-27 17:33 | XMS_ITS | Clinical Summary ---
Author Organization [facility] Address [address] [place] [address] Care Team Providers Care Winding Rack Operator Name Role Phone Millicent Crowder CENTRIFUGE SEPARATOR OPERATOR Primary Care Provider [phone] Allergies No known active allergies Medications MedicationSigDispense QuantityRefillsLast FilledStart DateEnd DateStatus aspirin 81 mg EC tablet Take 81 mg by mouth in the morning.Active apixaban (Eliquis) 5 mg tablet Take 5 mg by mouth in the morning and at bedtime.Active isosorbide mononitrate ER (Imdur) 120 mg 24 hr tablet Take 120 mg by mouth in the morning. Do not crush or chew.Active metFORMIN (Glucophage) 500 mg tablet Take 500 mg by mouth with breakfast.Active metoprolol tartrate (Lopressor) 25 mg tablet Take 25 mg by mouth in the morning and at bedtime.Active mirtazapine (Remeron) 15 mg tablet Take 15 mg by mouth at bedtime.Active ranolazine (Ranexa) 500 mg 12 hr tablet Take 500 mg by mouth in the morning and at bedtime. Do not crush, chew, or split.Active rosuvastatin (Crestor) 40 mg tablet Take 40 mg by mouth in the morning.Active lisinopril 5 mg tablet Take 5 mg by mouth in the morning.Active spironolactone (Aldactone) 25 mg tablet Take 25 mg by mouth in the morning.5Active pantoprazole (ProtoNix) 20 mg EC tablet Take 20 mg by mouth before breakfast.4Active amitriptyline (Elavil) 25 mg tablet Take 25 mg by mouth if needed each day.4Active sertraline (Zoloft) 50 mg tablet Take 50 mg by mouth in the morning.08/18/2023ctive tamsulosin (Flomax) 0.4 mg 24 hr capsule Take 0.4 mg by mouth in the morning.Active nitroglycerin (Nitrostat) 0.[address] 0.4 mg under the tongue if needed each day.08/20/2023ctive furosemide (Lasix) 40 mg tablet Indications:Chronic diastolic heart failure (CMS/HCC)Take 1 tablet (40 mg) by mouth in the morning. 90 tablet 5Active Additional Information Patient taking differently: 20 mgoral Daily, Reported on 01/25/2025 potassium chloride CR (K-Tab) 20 mEq ER tablet Take 1 tablet by mouth in the morning.10/16/2024tive budesonide-formoteroL (Symbicort) 160-4.5 mcg/actuation inhaler Inhale 1 puff in the morning and at bedtime.10/16/2024tive empagliflozin (Jardiance) 25 mg Take 25 mg by mouth in the morning.10/12/2024tive magnesium oxide (Mag-Ox) 400 mg (241.3 mg magnesium) tablet Take 1 tablet by mouth in the morning.10/16/2024tive amLODIPine (Norvasc) 10 mg tablet Take 10 mg by mouth in the morning.Active cholecalciferol (Vitamin D-3) 50 MCG (2000 UT) tablet Take 2,000 Units by mouth in the morning.5Active Active Problems ProblemNoted DateDiagnosed DateCarotid artery jmpiptgi01/11/2025Pre-op ayrbzmazsa78/11/2025BMI 25.0-25.9,adult01/22/2025hronic obstructive pulmonary wamfvss3001/22/2025Heart fglqgvv4901/22/2025 Overview (01/22/2025): noted in 10/12/2024 ED Note page 17. added per OP CDI policy. Malignant neoplasm of cardia of dzojxbk5001/22/2025Occlusion of carotid artery 01/22/2025 Overview (01/22/2025): noted in 10/12/2024 ED Note page 17. added per OP CDI policy. PVC (premature ventricular contraction)01/22/2025Trigger finger, right middle ljrqjg5401/22/2025Varicose veins of bilateral lower extremities with other lxokdqllbxmji52/08/2025Malignant neoplasm of lower third of qguvbxomo99/01/2025 Flash pulmonary edema08/03/2024Hypoxic respiratory gawisvl6608/03/2024Dizziness and tbebsxnly35/29/2025Nail disorder, tbnwgusxnlg25/29/2025bnormal findings on diagnostic imaging of lung03/13/2024 Overview (03/13/2024): Aug 01, 2020 Entered By: MAXINE SALDAÑA Comment: CT 04/2020.Repeat in 07/2020-->findings stable. Repeat 07/2021 Actinic nurrtkegw84/27/2025enign prostatic hyperplasia with urinary obstruction 03/13/2024hronic sdstqbfa54/27/2025hronic ischemic heart disease, unspecified 03/13/2024Depressive tcbpxuod71/27/2025Diabetic hjiyfqjstf42/27/2025Encounter for screening for malignant neoplasm of skin03/13/20245954Zmiaclzhhhd33/27/2025 Impacted cerumen, left ear03/13/2024Long term current use of anticoagulant tpvfkog9603/13/2024Major depressive disorder, recurrent, mild03/13/2024Nicotine dependence, cigarettes, /27/2025Obstructive sleep apnea of adult 03/13/2024Personal history of noncompliance with medical treatment, presenting hazards to vogpvx5203/13/2024Post-traumatic stress disorder, uldyfmqctia46/27/2025 Pulmonary tjyilogzkp53/27/2025Sensorineural hearing loss (SNHL) of both ears 03/13/2024Transient ischemic qwotyb2003/13/2024Type 2 diabetes mellitus without iahrqdrhfipzn12/27/2025Vitamin D qqlrpufiru39/27/2025hronic diastolic congestive heart bantxzn4703/01/2024Tobacco abuse03/01/20246627Xiomjr32/15/2022-fib 09/29/2021AD (coronary artery disease)09/29/2021Essential hypertension 09/29/20217452Xprnqvcwykxdxu99/15/8898Peixiskab86/15/2022Type 1 /15/2022 Encounters DateTypeDepartmentCare YthiQknolgkuxyk80/11/2025 10:30 AM ESTOffice Visit [facility] [address] [place] [address] Thania Cabral MD Preoperative clearance (Primary Dx); Chronic diastolic heart failure (CMS/HCC); Claudication; Carotid stenosis, asymptomatic, bilateral; Coronary artery disease involving qawalangin coronary artery of qawalangin heart without angina pectoris; Primary hypertension; Cardiovascular stress test hogahbkm46/11/2025Orders Only [place] [address] [place] [address] Kylah Doyle MA Pre-op evaluation (Primary Dx); Chronic heart failure with preserved ejection fraction (HFpEF) (CMS/HCC) 01/25/2025Telephone [facility] [place] [facility] [address] [place] [address] Eveline Bowens MA surgery kibieqduyv92/12/2025 2:15 PM ESTConsult [facility] [address] [place] [address] Mikki Rodriguez MD Symptomatic stenosis of right carotid artery without infarction (Primary Dx) 12/27/2024 - 12/27/2024 11:59 PM ESTHospital Encounter [facility] Radiology External Films [address] [place] [address] Discharge Disposition: Home or Self Care ()12/27/2024bstract [facility] Cardiology [address] [place] [address] Rd, [address] [place] [address] Adelaida Saha MA 11/15/2024Telephone [facility] [address] [place] [address] Rosemary Calvin MA 10/31/2024Orders Only [facility] [address] [place] [address] Provider, MD Shawn from Last 3 Months Family History Medical HistoryRelationNameCommentsCABGBrotherCoronary artery diseaseBrother RelationNameStatusCommentsBrotherFatherDeceasedMotherDeceased Social History Tobacco UseTypesPacks/DayYears UsedDateSmoking Tobacco: FormerCigarettes Smokeless Tobacco: Never Tobacco Cessation:Counseling Given: Not Answered Alcohol UseStandard Drinks/WeekCommentsNot Currently0 (1 standard drink = 0.6 oz pure alcohol)AR Safety & EnvironmentAnswerDate RecordedFear of Current or Ex-PartnerNot on file04/08/2023Emotionally AbusedNot on file04/08/2023hysically AbusedNot on file04/08/2023Sexually AbusedNot on file04/08/2023hysically or Sexually AbusedNot on file04/08/2023Sex and Gender InformationValueDate Recorded Sex Assigned at GsvymTnzo25/24/2025 6:33 PM EDTLegal RneKive4708/13/2021 9:43 PM EDTGender IsvchwcmRveq35/24/2025 6:33 PM EDTSexual OrientationHeterosexual or Pitnurls28/24/2025 6:33 PM EDT Last Filed Vital Signs Vital SignReadingTime TakenCommentsBlood Yiqrypdk43/5801/25/2025 10:33 AM EST Vcqjn613801/25/2025 10:33 AM ESTTemperature--Respiratory Rate--Oxygen Saturation 97%01/25/2025 10:33 AM ESTInhaled Oxygen Concentration--Dmnswf45.4 kg (153 lb) 01/25/2025 10:33 AM IUWZcitdd478.2 cm (5' 7 )01/25/2025 10:33 AM ESTBody Mass Index23.9601/25/2025 10:33 AM EST Plan of Treatment DateTypeDepartmentCare Team (Latest Contact Info)Bkwugapiper54/06/2026 10:30 AM ESTHospital Encounter [facility] Vascular Lab [address] [place] [address] Thania Cabral MD [address] [place] [address] Pre-op fgdzllxben14/06/2026 10:30 AM EST - 02/20/2025 11:30 AM ESTSurgery [facility] V[facility] Lab [address] [place] [address] Thania Cabral MD [address] [place] [address] Coronary angiographyHealth MaintenanceDue DateLast DoneCommentsDiabetes: Hemoglobin A1C1945Medicare Annual Wellness (AWV)1945Diabetes: Retinopathy Syisihidi88/01/1957Depression Hdkoqjtbq29/01/1959Diabetes: Urine Protein Plamtjebm79/01/1966Fall Risk Awjkphhvh32/01/2012COVID-19 Vaccine ( season)6102/27/2024, 12/14/2023, 12/29/2022, Additional history existsAdult Zoctvhs26/Zoster PtgkkfuxNtxfodbyq33/25/2022, 10/30/2020neumococcal Vaccine: 50+ KrlskTsgpekozg12/04/2025, 02/12/2016, 11/06/2014, Additional history existsInfluenza ZwlmfmbQdkwwbtsd89/12/2025, 11/11/2023, 11/12/2022, Additional history existsHIB VaccinesAged OutNo longer eligible based on patient's age to complete this topicHPV VaccinesAged OutNo longer eligible based on patient's age to complete this topicIPV VaccinesAged OutNo longer eligible based on patient's age to complete this topicMeningococcal B VaccineAged OutNo longer eligible based on patient's age to complete this topicMeningococcal VaccineAged OutNo longer eligible based on patient's age to complete this topicRotavirus VaccinesAged OutNo longer eligible based on patient's age to complete this topic Procedures Procedure NamePriorityDate/TimeAssociated DiagnosisCommentsCT TRANSFER OF OUTSIDE JCUKPYhwszcn33/12/2025 12:00 AM EST from Last 3 Months Results * CT transfer of outside films (12/27/2024 12:00 AM EST)Specimen (Source) Anatomical Location / LateralityCollection Method / VolumeCollection Time Received Time Narrative IMAGING - 12/27/2024 2:50 PM EST This order has been auto-finalized and does not contain a result. Authorizing ProviderResult TypeResult StatusMunier Michael HUNGIMLilly CT PROCEDURES Final ResultPerforming OrganizationAddressCity/State/ZIP CodePhone Number IMAGING from Last 3 Months Insurance MemberSubscriberPlan / Payer (Effective 2005-Present)Name:Waldo Maravilla Member ID:[id number] Relation to Subscriber:SelfName:Waldo Maravilla Subscriber ID:[id number] Payer ID:[id number] Group ID:Not on file Type:Medicare Address: [id number] Care Teams Team MemberRelationshipSpecialtyStart DateEnd Date Millicent Crowder NP [address] [place] [address] PCP - GeneralFamily Ilrlskap54/11/25
--- OUTSIDE RECORDS SUMMARY | 2025-01-27 17:33 | XMS_ITS | Clinical Summary ---
Author Organization [facility] Address [address] [facility] [place] [address] Care Team Providers Care Hospice Fellow Name Role Phone Unavailable Primary Care Provider Unavailabl e Source Comments The following information is NOT included in Care Everywhere downloads:Psychiatric notes, ECG results, Cardiac Rehab notes, Pulmonary Function notes, data from SmartForms (includes but not limited toPregnancy data,audiograms, eye exams, pre-surgical evaluation notes, well-child exam data).[facility] Immunizations ImmunizationAdministration DatesNext DueInfluenza, intradermal, trivalent, preservative free (IIV3) (SXA=050)10/16/2014Moderna Monovalent (12+ yrs) COVID- 19 vaccine, mRNA, spike protein, LNP, PF, 100 mcg/0.5 mL (QCR=131)05/08/2020, 04/11/2020 Social History Tobacco UseTypesPacks/DayYears UsedDateSmoking Tobacco: Never AssessedSex and Gender InformationValueDate RecordedSex Assigned at BirthNot on fileLegal Sex Male09/27/2017 4:29 PM EDTGender IdentityNot on fileSexual OrientationNot on file Plan of Treatment Health MaintenanceDue DateLast DoneCommentsHepatitis C Tsmzdeil78/01/1965Tdap Zzofuor6907/16/1964Hepatitis A (HAV) Vaccine (optional start 19+ years)1965 Tetanus (Td or Tdap) Urvnwep3007/16/1965Pneumococcal Vaccine(s) (50+ yrs) (1 of 1 - PCV)1996Shingles (RZV) Vaccine (1 of 2)1996Annual Wellness Visit (G0438)05/16/2006Hepatitis B (HBV) Vaccine (optional start 60+ years)2006 RSV vaccine (adult) (1 - 1-dose 75+ series)2COVID-19 Vaccine (3 - 2024- season)503/, 04/11/2020Influenza Vaccine (#1)2024 10/16/2014 Insurance
--- OUTSIDE RECORDS SUMMARY | 2025-01-27 17:33 | XMS_ITS | Clinical Summary ---
Author Organization [facility] Address [address] [place] [address] Care Team Providers Care Pharmacy Stock Clerk Name Role Phone Unavailable Primary Care Provider Unavailabl e Allergies No known active allergies Medications MedicationSigDispense QuantityRefillsLast FilledStart DateEnd DateStatus Aspirin 81 mg ORAL CpDR Take by mouth.Active folic acid 400 mcg ORAL tablet Take 400 mcg by mouth once daily.Active Fish Oil-DHA-EPA (FISH OIL) 1,200-144-216 mg ORAL Cap Take by mouth.Active paroxetine 30 mg ORAL tablet Take 30 mg by mouth once daily.Active FENOFIBRATE NANOCRYSTALLIZED (TRICOR ORAL) Take by mouth.Active clopidogrel (PLAVIX) 75 mg ORAL tablet Take 75 mg by mouth once daily.Active amLODIPine 10 mg ORAL tablet Take 10 mg by mouth once daily.Active metoprolol succinate XL, long acting, 50 mg ORAL 24 hr tablet Take 50 mg by mouth once daily.Active dronedarone (MULTAQ) 400 mg ORAL Tab Take 400 mg by mouth twice daily with meals.Active rosuvastatin (CRESTOR) 40 mg ORAL tablet Take 40 mg by mouth once daily.Active warfarin (COUMADIN) 5 mg ORAL tablet Take 5 mg by mouth once daily.Active loratadine-pseudoephedrine 24hr 10-240 mg (LORATADINE-D) 10-240 mg ORAL Tb24 Take 1 tablet by mouth once daily.Active lisinopril 20 mg ORAL tablet Take 20 mg by mouth once daily.Active pantoprazole 40 mg ORAL tablet Take 40 mg by mouth once daily.Active Melatonin 5 mg ORAL Cap Take by mouth.Active Diphenhydramine HCl 50 mg ORAL tablet Take 50 mg by mouth at bedtime as needed.Active nitroglycerin sublingual 0.4 mg SUBLINGUAL SL tablet Dissolve 0.4 mg under the tongue every 5 minutes as needed.Active dabigatran etexilate (PRADAXA) 150 mg ORAL Cap Take by mouth twice daily.Active Social History Tobacco UseTypesPacks/DayYears UsedDateSmoking Tobacco: Never AssessedSex and Gender InformationValueDate RecordedSex Assigned at BirthNot on fileLegal Sex Male01/17/2012 9:35 AM ESTGender IdentityNot on fileSexual OrientationNot on file Plan of Treatment Health MaintenanceDue DateLast DoneCommentsAnxiety Zudtszwkz19/01/1965Depression Zumwghjja05/01/1965Hepatitis C Ijlnlvfkf46/01/1965DTaP,Tdap,Td Vaccine (1 - Tdap)1965Pneumococcal Vaccine: 50+ (1 of 1 - PCV)1996Shingrix Vaccine (1 of 2)1996RSV Vaccine (1 - 1-dose 75+ series)2021dvance Directive Wbwsvhxmgp98/01/2025Covid-19 Vaccine ( season)2024 05/08/2020, 04/11/2020Influenza Vaccine (#1)/02/2014Diabetes Riccpjrlx37/17/834250/, 08/06/2024, 08/06/2024, Additional history exists Insurance
[2025-01-27 17:46] LABS: Lactate/Lactic Acid 1.9 mmol/L (0.4-2.0)
[2025-01-27] MEDS: POTASSIUM BICARBONATE/CIT 25 MEQ TABLET EFF 50 MEQ PO (17:46)
[2025-01-27] MEDS: 0.9 % SODIUM CHLORIDE 1,000 ML 1000 ML IV ×2 (19:43→21:51)
[2025-01-27 21:10] LABS: Glucose Urine UA >=1000 mg/dL (NEGATIVE)
[2025-01-27 21:16] LABS: Cast Seen? SEEN #/LPF (NONE SEEN); Crystals Seen? None Seen #/HPF (None Seen); Urine Culture Indicated YES-FRMC
[2025-01-27 21:54] LABS: Alanine Aminotransferase 14 U/L (16-63); Albumin Globulin Ratio 0.9; Albumin Level 3.6 g/dL (3.4-5.0); Alkaline Phosphatase 106 U/L (46-116); Aspartate Amino Transferase 13 U/L (15-37); Globulin 3.9 g/dL; Magnesium 2.0 mg/dL (1.8-2.4); Total Protein 7.5 g/dL (6.4-8.2)
[2025-01-27] MEDS: MIDODRINE HCL 5 MG TABLET 15 MG PO (21:55)
[2025-01-27] MEDS: ALBUMIN HUMAN 25 GM/100 ML PREMIX IV (22:21)
[2025-01-28] VITALS (45 sets, daily range): BP systolic 91–138; BP diastolic 42–72; PULSE 61–75; TEMP 36.6–37; O2SAT 91–97; BMI 56.0
[2025-01-28 07:03] LABS: Hematocrit 30.8 % (42.0-54.0); Hemoglobin 10.0 g/dL (14.0-18.0); Immature Granulocytes Abs Auto 0.13 10^3/uL (0.00-0.03); Immature Granulocytes Pct Auto 1.4 % (0.0-0.5); Lymphocytes Absolute Auto 1.4 10^3/uL (1.2-3.8); Mean Corpuscular HGB Conc 32.5 g/dL (29.9-35.2); Mean Corpuscular Hemoglobin 24.3 pg (25.9-34.0); Mean Corpuscular Volume 74.8 fL (80.0-94.0); Platelet Count 173 10^3/uL (150-450); Red Blood Count 4.12 10^6/uL (4.70-6.10); White Blood Count 9.3 10^3/uL (4.0-11.0)
[2025-01-28 07:25] LABS: Alanine Aminotransferase 8 U/L (16-63); Albumin Globulin Ratio 0.9; Albumin Level 2.9 g/dL (3.4-5.0); Alkaline Phosphatase 83 U/L (46-116); Anion Gap 12.7; Aspartate Amino Transferase 11 U/L (15-37); Blood Urea Nitrogen 14.0 mg/dL (7.0-18.0); Calcium 7.9 mg/dL (8.5-10.1); Carbon Dioxide 24.6 mmol/L (21.0-32.0); Chloride 108 mmol/L (98-107); Estimated GFR (African America 57 (>=60 mL/min/1.73m^2); Estimated GFR (Non-African Ame 47 (>=60 mL/min/1.73m^2); Globulin 3.3 g/dL; Glucose 104 mg/dL (74-106); Magnesium 1.8 mg/dL (1.8-2.4); Potassium 3.3 mmol/L (3.5-5.1); Sodium 142 mmol/L (136-145); Total Protein 6.2 g/dL (6.4-8.2)
--- NOTE | 2025-01-28 08:00 | ECG_ITS ---
[facility] Test Date: 2025-01-28 Pat Name: CAROL MCPHERSON Department: Room: [facility] Gender: Male Manager Ems: : 1945 Requested By: [id number] Order Number: [id number] Reading MD: ABRIL GORDON M.D. Measurements Intervals [place] Rate: 67 P: 270 MS: 238 QRS: 72 QRSD: 92 T: 17 QT: 424 QTc: 440 Interpretive Statements Sinus rhythm with first degree AV block [address] depression [address] & Twave abnormality 9150 abnormal ECG Compared to ECG 01/27/2025 16:31:51 ST (T wave) deviation still present Electronically Signed On 01-28-2025 10:45:11 EST by ABRIL GORDON M.D.
[2025-01-28] MEDS: METOPROLOL TARTRATE 25 MG TABLET 12.5 MG PO ×2 (08:02→20:04)
[2025-01-28] MEDS: APIXABAN 5 MG TABLET PO ×2 (08:02→20:04)
[2025-01-28] MEDS: PANTOPRAZOLE SODIUM 40 MG TABLET.DR PO (08:02)
[2025-01-28] MEDS: SERTRALINE HCL 50 MG TABLET PO (08:02)
[2025-01-28] MEDS: MIDODRINE HCL 5 MG TABLET PO (08:02)
[2025-01-28] MEDS: ASPIRIN 81 MG TABLET.DR PO (08:02)
[2025-01-28] MEDS: POTASSIUM CHLORIDE 10 MEQ ER TABLET 20 MEQ PO (08:02)
--- NOTE | 2025-01-28 11:26 | PM.HP ---
HPI H&P: HPI History of Present Illness Chief complaint: WEAKNESS, hypotension, acute kidney injury Narrative: This is a 79-year-old man who came to the ER at the [facility] on a Wednesday with a sensation that his vision was not right. He felt very weak. It was like the energy and drained out of him. He felt like he might fall down and pass out. He did not actually fall or lose consciousness. He said his vision was off with spots everywhere as if he had looked into the sun and then looked away. During the admission process concern must been raised for a UTI as he was given Rocephin. But his urine has only 5-10 white blood cells. Urine is negative for bacteria, negative for leukocyte esterase, and negative for nitrites. In the ER his potassium was extremely low at 2.8. His creatinine was high at 2.05. His baseline creatinine is 0.88. His blood pressure was low. He was given sepsis dose IV fluids with nearly 3 L of IV fluids in a patient who weighs 157 pounds. It should be noted that the computer lists him as 157 kg making his BMI of 56 but this is impossible. His real BMI is about 20. Anyhow, overnight the patient got potassium supplementation and IV fluids. This morning his potassium is 3.3. His creatinine has improved somewhat to 1.45. The patient says that he feels much better. However he has had the strength to get up and walk around. He has had recurrent problems with severe hypokalemia. Back in September he was here in the hospital with potassium low at 2.2. He was somewhat dehydrated with sodium high at 146 although his creatinine had stayed stable at 0.7. He describes that recently he had a colonoscopy and EGD done by gastroenterology at [facility] with Dr. Peguero. That found a hiatal hernia and another abnormality so he was referred to oncology with Dr. Lynne. What ever the cancerous lesion is either in his stomach or his esophagus it was not felt to be amenable to surgery due to location per the patient and they patient also has the feeling that oncology did not want to treat him with medications or radiation therapy also because of the location, so Dr. Lynne has referred him to a specialist at the [facility] that the patient thinks his name Dr. Portillo and the patient has a family members who work with the [facility] and they searched the list of doctors to try and find the superspecialist to try and decide if what ever his lesion is would be treatable. The patient says that he got 1 IV iron infusion recently through Dr. Lynne's office and he is due for another one on Wednesday. His PCP put him on an iron pill and the bedside nurse reported today that the patient's bowel movement was very green and very dark. I advised the patient that since he is getting IV iron infusions I do not think there is any point in taking an iron pill. The patient [facility] all [facility] He describes that in the past he has had problems with fluid retention from CHF. He says that when he was in the hospital last time they gave him so many bags of potassium that I got fluid overloaded. Later in October he had an echocardiogram that shows left-ventricular ejection fraction of 55% with grade 2 diastolic dysfunction. The patient does not seem to know all of his medications although he describes being on an VALENTINE-I to raise potassium, and he says he is taking a potassium pill, and despte no edema in his legs he seems to still be taking Lasix. The patient denies any vomiting over the last few weeks. He denies any diarrhea over the last few weeks to suggest any GI potassium losses. He does admit that his appetite had been mildly low over the last couple weeks and he just was not eating that much food and probably not drinking that much water. Quality: Safe Use of Opioids Is the patient undergoing opioid medication assisted treatment that includes methadone, buprenorphine, and/or naltrexone: No Opioid HPI Opioid Management Most Recent Pain and Opioid Data: Last Pain Scale 0 10/15/24, 22:03 Last Pain Assessment Today, 10:59 Last ORT Total Score 0 Today, 00:48 Last ORT Risk Category Low Risk Today, 00:48 Review of Systems ROS Narrative A 10 point review of systems is negative except as mention above in the history of present illness. 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 (current) use of anticoagulants (ICD-10) Encounter for therapeutic drug monitoring ?Z51.81 - Encounter for therapeutic drug level monitoring (ICD-10) Callus ?L84 - Corns and callosities (ICD-10) Osteoarthritis ?M19.90 - Unspecified osteoarthritis, unspecified site (ICD-10) Onychomycosis of toenail ?B35.1 - Tinea unguium (ICD-10) Tobacco use ?Z72.0 - Tobacco use (ICD-10) Transient ischemic attack ?G45.9 - Transient cerebral ischemic attack, unspecified (ICD-10) Hyperlipidemia ?E78.5 - Hyperlipidemia, unspecified (ICD-10) Benign essential hypertension ?I10 - Essential (primary) hypertension (ICD-10) Anxiety disorder ?F41.9 - Anxiety disorder, unspecified (ICD-10) Paroxysmal atrial fibrillation ?I48.0 - Paroxysmal atrial fibrillation (ICD-10) Sensorineural hearing loss ?H90.5 - Unspecified sensorineural hearing loss (ICD-10) Noncompliance with treatment ?Z91.199 - Patient's noncompliance with other medical treatment and regimen due to unspecified reason (ICD-10) Depressive disorder ?F32.A - Depression, unspecified (ICD-10) Diabetic neuropathy ?E11.40 - Type 2 diabetes mellitus with diabetic neuropathy, unspecified (ICD-10) ESE (obstructive sleep apnea) ?G47.33 - Obstructive sleep apnea (adult) (pediatric) (ICD-10) Chronic insomnia ?F51.04 - Psychophysiologic insomnia (ICD-10) 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 - Congenital malformation of aorta unspecified (ICD-10) ?Q25.79 - Other congenital malformations of pulmonary artery (ICD-10) 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 due to asbestos and other mineral fibers (ICD-10) Vitamin D deficiency ?E55.9 - Vitamin D deficiency, unspecified (ICD-10) BPH (benign prostatic hyperplasia) ?N40.0 - Benign prostatic hyperplasia without lower urinary tract symptoms (ICD-10) CHF (congestive heart failure) ?I50.9 - Heart failure, unspecified (ICD-10) Injury of median nerve ?S54.10XA - Injury of median nerve at forearm level, unspecified arm, initial encounter (ICD-10) Disorder of sciatic nerve ?G57.00 - Lesion of sciatic nerve, unspecified lower limb (ICD-10) 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 - Lesion of femoral nerve, right lower limb (ICD-10) Paralysis of left femoral nerve ?G57.22 - Lesion of femoral nerve, left lower limb (ICD-10) Eczema ?L30.9 - Dermatitis, unspecified (ICD-10) Tinnitus ?H93.19 - Tinnitus, unspecified ear (ICD-10) PTSD (post-traumatic stress disorder) ?F43.10 - Post-traumatic stress disorder, unspecified (ICD-10) Myocardial infarct ?I21.9 - Acute myocardial infarction, unspecified (ICD-10) High cholesterol ?E78.00 - Pure hypercholesterolemia, unspecified (ICD-10) Surgical History History of appendectomy ?Z90.49 - Acquired absence of other specified parts of digestive tract (ICD-10) H/O vasectomy ?Z98.52 - Vasectomy status (ICD-10) H/O heart bypass surgery ?Z95.1 - Presence of aortocoronary bypass graft (ICD-10) Family History Sister Family history of cancer Father Family history of diabetes mellitus Family history of hypertension Social History Within the past year, how often did you have a drink containing alcohol: never Score interpretation: A score less than 4 is consistent with normal alcohol consumption. Smoking status: Former smoker Non-prescribed substance use: denies use Previous occupational history: retired Highest level of school completed/degree received: Bachelor's degree Are you now , , , , never or living with a partner: In a typical week, how many times do you talk on the telephone with family, friends, or neighbors: 3 or more times per week How often do you get together with friends or relatives: 3 or more times per week How often do you attend hinduism or jew services: 4 or more times per year Little interest or pleasure in doing things: not at all Feeling down, depressed, or hopeless: not at all Feel stressed/tense/nervous/anxious/difficulty sleeping: not at all Do you think of yourself as: straight/heterosexual Gender Identity: male Meds Home Medications and Allergies Home Medications ?Medication ?Instructions ?Recorded ?Confirmed ?Type amitriptyline 25 mg tablet 25 mg PO .QHS PRN sleep 10/12/24 01/27/25 History apixaban 5 mg tablet (Eliquis) 5 mg PO BID 10/12/24 01/27/25 History empagliflozin 25 mg tablet 25 mg PO DAILY 10/12/24 10/12/24 History (Jardiance) furosemide 40 mg tablet 20 mg PO QDAY 10/12/24 01/27/25 History lisinopril 5 mg tablet 5 mg PO DAILY 10/12/24 01/27/25 History metformin 500 mg tablet 500 mg PO DAILY 10/12/24 01/27/25 History metoprolol tartrate 25 mg tablet 25 mg PO BID 10/12/24 01/27/25 History mirtazapine 15 mg tablet 15 mg PO BEDTIME 10/12/24 01/27/25 History pantoprazole 20 mg tablet,delayed 20 mg PO DAILY 10/12/24 01/27/25 History release rosuvastatin 40 mg tablet 40 mg PO DAILY 10/12/24 01/27/25 History sertraline 50 mg tablet 50 mg PO QDAY 10/12/24 01/27/25 History spironolactone 25 mg tablet 25 mg PO DAILY 10/12/24 01/27/25 History tamsulosin 0.4 mg capsule 0.4 mg PO BEDTIME 10/12/24 01/27/25 History aspirin 81 mg tablet,delayed 81 mg PO DAILY 10/14/24 01/27/25 History release budesonide-formoterol HFA 160 1 puff inhalation BID #10.2 grams 10/16/24 01/27/25 Rx mcg-4.5 mcg/actuation aerosol inhaler (Symbicort) ipratropium 20 mcg-albuterol 100 1 puff inhalation Q4H PRN 10/16/24 01/27/25 Rx mcg/actuation mist for inhalation shortness of breath or wheezing #4 (Combivent Respimat) grams isosorbide mononitrate 120 mg 120 mg PO DAILY #0 tabs 10/16/24 01/27/25 Rx tablet,extended release 24 hr potassium chloride 20 mEq 20 meq PO DAILY #30 tabs 10/16/24 01/27/25 Rx tablet,extended release Allergies Allergy/AdvReac Type Severity Reaction Status Date / Time No Known Drug Allergies Allergy Verified 01/27/25 16:33 Exam Narrative Exam Narrative: To me his weight looks like it is about 65 to 68 kg. In the computer he is listed as 157.3 kg which I think is erroneous. General: Reclining in bed he is awake and alert and has a really good fund of knowledge. Head: Normocephalic and atraumatic. Eyes: EOMI. PERRLA. No icterus. Mouth: Oropharynx is clear, tongue is midline, mucous membranes are moist. Neck: No thyromegaly. No jugular venous distention. Pulmonary: Beginning to get a little bit of crackles in the bases of his lungs bilaterally. No wheezing. No cough. Cardiac: No murmurs to auscultation. Heart sounds are regular to rate and rhythm. GI: Abdomen soft, nontender, no peritoneal signs to palpation. Normal bowel sounds to auscultation. Lower extremities: No edema in his ankles. Skin: A little bit wrinkly suggesting a mild amount of dehydration. He was probably extremely dehydrated yesterday. Psychiatric: The patient is extraordinarily nice and pleasant to the interview. Neurologic: Moves all 4 extremities well with no neurologic deficits. Constitutional Vital Signs, click to edit/add: Last Vital Signs Temp 98.3 F 01/28/25 11:19 Pulse 64 01/28/25 11:19 Resp 16 01/28/25 11:19 BP 124/50 01/28/25 11:19 Pulse Ox 96 01/28/25 11:19 O2 Del Method Room Air 01/28/25 11:19 Results Labs Labs: Short CBC 01/27/25 01/28/25 Range/Units 16:30 06:55 WBC 14.2 H 9.3 (4.0-11.0) 10^3/uL Hgb 11.3 L 10.0 L (14.0-18.0) g/dL Hct 35.6 L 30.8 L (42.0-54.0) % Plt Count 227 173 (150-450) 10^3/uL BMP 01/27/25 01/28/25 16:30 06:55 Sodium 137 142 Potassium 2.8 L* 3.3 L Chloride 100 108 H Carbon Dioxide 31.2 24.6 BUN 14.0 14.0 Creatinine 2.05 H 1.45 H Glucose 127 H 104 Calcium 9.0 7.9 L Liver Function 01/27/25 01/28/25 Range/Units 16:30 06:55 Total Bilirubin 0.3 0.3 (0.2-1.0) mg/dL Direct Bilirubin 0.1 (0.0-0.2) mg/dL AST 13 L 11 L (15-37) U/L ALT 14 L 8 L (16-63) U/L Alkaline Phosphatase 106 83 (46-116) U/L Albumin 3.6 2.9 L (3.4-5.0) g/dL Urine 01/27/25 Range/Units 21:00 Urine Color Yellow (YELLOW) Urine Clarity Clear (CLEAR) Urine pH 5.0 (5.0-9.0) Ur Specific [place] 1.020 (1.005-1.025) Urine Protein Trace (NEG/TRACE) mg/dL Urine Glucose (UA) >=1000 A (NEGATIVE) mg/dL Assessment and Plan Assessment and Plan (1) Acute kidney injury: (2) Dehydration: (3) Hypotension: Qualifiers: Hypotension type: hypotension due to drug Qualified Code(s): I95.2 - Hypotension due to drugs (4) Near syncope: (5) Hypokalemia: (6) Hypophosphatemia: (7) Hypertension: (8) History of diastolic dysfunction: Plan Assessment: Acute kidney injury, due to: Severe clinical dehydration, also with: Hypotension due to multiple medications, accompanied and exacerbated by: Critically low hypokalemia. Near syncope, due to all the above. History of hypertension. History of diastolic dysfunction. Recent finding of what the patient describes as a gastrointestinal tumor either esophageal or gastric, found on EGD in [place] by Dr. Peguero and then seen by oncology with Dr. Lynne with referral to a super-specialist at the [facility], which has been pending for the last 3 weeks. Anemia, stable compared to hemoglobin levels that he is had here in the past, due to malignancy, iron deficiency, and other multifactorial causes. Plan: Hospital admission with inpatient status. Ongoing telemetry monitoring until his potassium levels are fully normalized. The patient seems to be adequately rehydrated right now so I am stopping IV fluids ANTONETTE. I encouraged the patient to eat reasonable diet and make sure he is not having any vomiting or diarrhea. Potassium chloride 10 mill equivalents p.o. 3 times a day with meals. I did encourage the patient to ambulate the hallways and make sure that his blood pressures and cardiovascular system are stable. I have placed orders to resume his home potassium and spironolactone and lisinopril tomorrow. In a patient with recurrent hypokalemia like this I think that furosemide and other loop diuretic should be avoided is much as possible. I encouraged the patient to call Dr. Lynne's office and make sure that they are working on the referral to the specialist at the [facility]. The patient says that he is supposed to get an iron infusion 2 days from now on Wednesday which I think he will be able to get to that appointment. The patient wanted to go home today but I told him it is unlikely that his potassium levels will normalize this fast and he needs to be monitored to make sure that he is adequately rehydrated without going into volume overload. He needs at least 24 more hours of time in the hospital. I find no subjective or objective or laboratory evidence of any infection at this time so Rocephin has been stopped. Urinary Catheter Management Urinary Catheter Management Straight: Cath placed during this visit: yes Urethral indwelling: No Insertion date: 01/27/25 Insertion time: 21:20
[2025-01-28] MEDS: POTASSIUM CHLORIDE 10 MEQ ER TABLET PO ×2 (11:36→16:38)
[2025-01-28 15:38] LABS: Anion Gap 12.5; Blood Urea Nitrogen 11.0 mg/dL (7.0-18.0); Calcium 8.1 mg/dL (8.5-10.1); Carbon Dioxide 24.8 mmol/L (21.0-32.0); Chloride 108 mmol/L (98-107); Estimated GFR (African America >60 (>=60 mL/min/1.73m^2); Estimated GFR (Non-African Ame 54 (>=60 mL/min/1.73m^2); Glucose 169 mg/dL (74-106); Magnesium 1.8 mg/dL (1.8-2.4); Potassium 3.3 mmol/L (3.5-5.1); Sodium 142 mmol/L (136-145)
[2025-01-28] MEDS: ALBUTEROL SULFATE 2.5 MG/3 ML VIAL NEB IH ×2 (16:20→21:48)
[2025-01-28] MEDS: ATORVASTATIN CALCIUM 40 MG TABLET PO (20:04)
[2025-01-28] MEDS: BUDESONIDE 0.5 MG/2 ML AMPULE NEB IH (21:48)
[2025-01-28] MEDS: TAMSULOSIN HCL 0.4 MG CAPSULE PO (22:13)
[2025-01-28] MEDS: MIRTAZAPINE 15 MG TABLET PO (22:13)
[2025-01-29] VITALS (16 sets, daily range): BP systolic 108–135; BP diastolic 45–64; PULSE 61–84; TEMP 36.6–36.8; O2SAT 91–97; BMI 26.1
[2025-01-29] MEDS: ALBUTEROL SULFATE 2.5 MG/3 ML VIAL NEB IH ×2 (05:05→10:23)
[2025-01-29 05:30] LABS: Hematocrit 33.9 % (42.0-54.0); Hemoglobin 10.5 g/dL (14.0-18.0); Immature Granulocytes Abs Auto 0.09 10^3/uL (0.00-0.03); Immature Granulocytes Pct Auto 1.0 % (0.0-0.5); Lymphocytes Absolute Auto 1.4 10^3/uL (1.2-3.8); Mean Corpuscular HGB Conc 31.0 g/dL (29.9-35.2); Mean Corpuscular Hemoglobin 23.8 pg (25.9-34.0); Mean Corpuscular Volume 76.9 fL (80.0-94.0); Platelet Count 174 10^3/uL (150-450); Red Blood Count 4.41 10^6/uL (4.70-6.10); White Blood Count 9.3 10^3/uL (4.0-11.0)
[2025-01-29] MEDS: PANTOPRAZOLE SODIUM 40 MG TABLET.DR PO (05:44)
[2025-01-29 05:52] LABS: Anion Gap 13.8; Blood Urea Nitrogen 9.0 mg/dL (7.0-18.0); Calcium 8.6 mg/dL (8.5-10.1); Carbon Dioxide 25.8 mmol/L (21.0-32.0); Chloride 110 mmol/L (98-107); Estimated GFR (African America >60 (>=60 mL/min/1.73m^2); Estimated GFR (Non-African Ame 59 (>=60 mL/min/1.73m^2); Glucose 117 mg/dL (74-106); Magnesium 1.9 mg/dL (1.8-2.4); Potassium 3.6 mmol/L (3.5-5.1); Sodium 146 mmol/L (136-145)
--- NOTE | 2025-01-29 07:00 | ECG_ITS ---
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
[2025-01-29] MEDS: LISINOPRIL 5 MG TABLET PO (08:32)
[2025-01-29] MEDS: METOPROLOL TARTRATE 25 MG TABLET 12.5 MG PO (08:32)
[2025-01-29] MEDS: APIXABAN 5 MG TABLET PO (08:32)
[2025-01-29] MEDS: ISOSORBIDE MONONITRATE 60 MG TAB.ER.24H 120 MG PO (08:33)
[2025-01-29] MEDS: POTASSIUM CHLORIDE 10 MEQ ER TABLET 20 MEQ PO ×3 (08:33→11:28)
[2025-01-29] MEDS: SERTRALINE HCL 50 MG TABLET PO (08:33)
[2025-01-29] MEDS: ASPIRIN 81 MG TABLET.DR PO (08:33)
[2025-01-29] MEDS: SPIRONOLACTONE 25 MG TABLET PO (08:33)
[2025-01-29] MEDS: BUDESONIDE 0.5 MG/2 ML AMPULE NEB IH (10:23)
--- NOTE | 2025-01-29 10:50 | CM.NOTE ---
Rounds made with Dr. Renteria, pt will discharge to home today. Pt will f/u with PCP. CM will call to clarify plan for cardiology.
--- NOTE | 2025-01-29 12:10 | DIETREC ---
Recommend Ensure or Boost nutritional supplement 1 container p o daily for home going for additional nutritional support
--- NOTE | 2025-01-29 12:34 | CM.NOTE ---
CM called [facility] cardiology, pt will be receiving call from Centralized Scheduling to set up heart cath. Pt will not need f/u at this time with [facility] Cardiology. Pt has also been referred to [facility] for oncology, pt states he is waiting for call to schedule.
--- NOTE | 2025-01-29 12:42 | PC.NURSE ---
this RN at bedside with nurse environmental health and safety intern rene lindsey with hourly rounding and assessments, agree with charting. discharge instructions given to pt, verbalized understanding. belongings packed per pt. taken to exit via wheelchair, discharged to private vehicle.
--- NOTE | 2025-01-29 14:21 | PM.DS1 ---
DS: Providers Provider Date of admission: 01/28/25 00:23 Primary care physician: Non-Staff PhysicianMD Admitting clinician: ANAY SINGH Attending physician on admission: ANAY SINGH Attending physician on discharge: LUCINDA FIERRO Discharging clinician: LUCINDA FIERRO DS: Diagnosis Discharge Diagnosis (1) Acute kidney injury: (2) Dehydration: (3) Hypotension: Qualifiers: Hypotension type: hypotension due to drug Qualified Code(s): I95.2 - Hypotension due to drugs (4) Near syncope: (5) Hypokalemia: (6) Hypophosphatemia: (7) Hypertension: (8) History of diastolic dysfunction: DS: Summary Hospital Course Hospital Course: Waldo Maravilla is a 79 y/o M, h/o gastric cancer, CAD, carotid stenosis, presented to [facility] on 01/27/25 with near syncope and weakness, found to have significant hypokalemia to 2.8 and creatinine elevation to 2.05. Suspected secondary to poor PO and lasix, was aggressively hydrated with improvement in symptoms, renal function and electrolytes. Discharged home 01/29/25 with lasix discontinued, jardiance held for 1 week, and metoprolol succinate half dose at 12.5 mg daily. Time Spent with Patient Time attestation: Total time spent providing and/or coordinating discharge services: Exam Constitutional Vital Signs, click to edit/add: Last Vital Signs Temp 97.9 F 01/29/25 12:00 Pulse 76 01/29/25 12:00 Resp 18 01/29/25 10:23 BP 108/45 L 01/29/25 12:00 Pulse Ox 95 01/29/25 12:00 O2 Del Method Room Air 01/29/25 12:00 DS: Data Data Completed and Pending Labs on day of discharge: Labs from last 24 hours 01/29/25 01/28/25 05:07 15:13 WBC 9.3 RBC 4.41 L Hgb 10.5 L Hct 33.9 L MCV 76.9 L MCH 23.8 L MCHC 31.0 RDW 24.4 H Plt Count 174 MPV 11.0 Neut % (Auto) 74.1 Lymph % (Auto) 14.5 L Smyth % (Auto) 7.7 Eos % (Auto) 2.1 Baso % (Auto) 0.6 Neut # (Auto) 6.9 H Lymph # (Auto) 1.4 Smyth # (Auto) 0.7 Eos # (Auto) 0.2 Baso # (Auto) 0.1 Abs Immat Gran (auto) 0.09 H Imm/Tot Granulo (auto) 1.0 H Sodium 146 H 142 Potassium 3.6 3.3 L Chloride 110 H 108 H Carbon Dioxide 25.8 24.8 Anion Gap 13.8 12.5 BUN 9.0 11.0 Creatinine 1.19 1.29 Est GFR ( Amer) >60 >60 Est GFR (Non-Af Amer) 59 L 54 L BUN/Creatinine Ratio 7.6 8.5 Glucose 117 H 169 H Calcium 8.6 8.1 L Phosphorus 2.6 Magnesium 1.9 1.8 Preliminary micro results at discharge 01/27/25 21:00 Urine Culture - Preliminary Urine,Clean Catch Pending - Specimen sent to [facility] Discharge Plan Discharge Disposition: Home, Self-Care Condition: Good Discharge Medications: Continued amitriptyline 25 mg tablet 25 mg PO .QHS PRN (Reason: sleep) lisinopril 5 mg tablet 5 mg PO DAILY metformin 500 mg tablet 500 mg PO DAILY mirtazapine 15 mg tablet 15 mg PO BEDTIME spironolactone 25 mg tablet 25 mg PO DAILY pantoprazole 20 mg tablet,delayed release (DR/EC) 20 mg PO DAILY tamsulosin 0.4 mg capsule 0.4 mg PO BEDTIME sertraline 50 mg tablet 50 mg PO QDAY rosuvastatin 40 mg tablet 40 mg PO DAILY Eliquis 5 mg tablet 5 mg PO BID aspirin 81 mg tablet,delayed release (DR/EC) 81 mg PO DAILY isosorbide mononitrate 120 mg tablet extended release 24 hr 120 mg PO DAILY Qty: 0 0RF potassium chloride 20 mEq tablet extended release 20 meq PO DAILY Qty: 30 0RF budesonide-formoterol [Symbicort] 160-4.5 mcg/actuation HFA aerosol inhaler 1 puff inhalation BID Qty: 10.2 1RF Combivent Respimat 20-100 mcg/actuation mist 1 puff inhalation Q4H PRN (Reason: shortness of breath or wheezing) Qty: 4 1RF Changed metoprolol tartrate 25 mg tablet 12.5 mg PO BID Qty: 0 0RF Held Jardiance 25 mg tablet 25 mg PO DAILY Hold Instructions: Resume on 02/05/25. To be resumed by PCP Discontinued furosemide 40 mg tablet 20 mg PO QDAY potassium chloride 20 mEq tablet,ER particles/crystals 20 meq PO BID Activity: increase activity as tolerated Diet: advance to your usual diet Print Language: Amharic Patient Instructions: Hypokalemia (DC) Forms: Portal Instructions Follow Up Appointments: [place] [address] [place] 01/31/2025 @1:40 phone [phone] Discharge Date/Time: 01/29/25 12:44
--- NOTE | 2025-01-30 12:41 | CM.DCFOLLOWU ---
1st attempt, no answer, 01/30
--- NOTE | 2025-01-31 12:36 | CM.DCFOLLOWU ---
2nd attempt, no answer, 01/31
--- NOTE | 2025-01-31 12:46 | CM.NOTE ---
Final urine culture tiger txt to Dr. Renteria.
--- NOTE | 2025-01-31 13:39 | CM.NOTE ---
I called the patients son (Juan) and Juan was notified that an antibiotic was called into [facility] in [place] due to a positive urine culture. The patients son said he would make sure someone picked up the antibiotic today.
--- NOTE | 2025-01-31 14:01 | CM.NOTE ---
Called [facility], pt had appointment today to see Sue Moore. Updated that Dr. Renteria had recommended pt have repeat BMP. Nurse sending note to Sue Swab, they will contact CM with any questions.
== END 2025-01-29 12:44 | disposition home or self-care (01) | DRG 684 ==
LOC: ER 22:15 → MS 01-28 00:30
PROVIDERS: Hospitalist; Internal Medicine; Admitting Provider Student in an Organized Health Care Education/Training Program; Emergency Provider Emergency Medicine; Visit Provider Student in an Organized Health Care Education/Training Program
DX: N17.9 Acute kidney failure, unspecified (principal); E86.0 Dehydration; I95.9 Hypotension, unspecified; E87.6 Hypokalemia; E83.39 Other disorders of phosphorus metabolism; D50.9 Iron deficiency anemia, unspecified; D63.8 Anemia in other chronic diseases classified elsewhere; C26.9 Malignant neoplasm of ill-defined sites within the digestive system; E11.40 Type 2 diabetes mellitus with diabetic neuropathy, unspecified; G47.33 Obstructive sleep apnea (adult) (pediatric); I11.0 Hypertensive heart disease with heart failure; I50.9 Heart failure, unspecified; F41.9 Anxiety disorder, unspecified; K44.9 Diaphragmatic hernia without obstruction or gangrene; E78.5 Hyperlipidemia, unspecified; N40.0 Benign prostatic hyperplasia without lower urinary tract symptoms; I25.2 Old myocardial infarction; Z87.891 Personal history of nicotine dependence; Z79.01 Long term (current) use of anticoagulants; Z79.84 Long term (current) use of oral hypoglycemic drugs; Z79.899 Other long term (current) drug therapy
CPT/HCPCS: 36415; 71045; 80048; 80053; 80076; 81001; 83605; 83735; 84100; 84484; 85025; 87040; 87086; 87088; 87186; 93005; 94640; 94761; 96361; 96365; 96366; 96368; 99285; J0696; P9046

== ENCOUNTER 2025-02-02 10:29 | Outpatient (OUT) | payer MEDICARE, SELFPAY ==
--- OUTSIDE RECORDS SUMMARY | 2025-01-25 10:30 | XMS_ITS | Encounter Summary ---
Author Organization [facility] Address [address] [place] [address] Care Team Providers Care Cognos Bi Administrator Name Role Phone Millicent Crowder NP Primary Care Provider [phone] Encounter Details DateTypeDepartmentCare Team (Latest Contact Info)Mrqkdxcvfpz16/11/2025 10:30 AM ESTOffice Visit [facility] [address] [place] [address] Thania Cabral MD [address] [facility] [address] Preoperative clearance (Primary Dx); Chronic diastolic heart failure (CMS/HCC); Claudication; Carotid stenosis, asymptomatic, bilateral; Coronary artery disease involving mechoopda coronary artery of mechoopda heart without angina pectoris; Primary hypertension; Cardiovascular stress test abnormal Social History Tobacco UseTypesPacks/DayYears UsedDateSmoking Tobacco: FormerCigarettes Smokeless Tobacco: NeverAlcohol UseStandard Drinks/WeekCommentsNot Currently0 (1 standard drink = 0.6 oz pure alcohol)UT Safety & EnvironmentAnswerDate Recorded Fear of Current or Ex-PartnerNot on file04/08/2023Emotionally AbusedNot on file 04/08/2023hysically AbusedNot on file04/08/2023Sexually AbusedNot on file 4Physically or Sexually AbusedNot on file04/08/2023Sex and Gender InformationValueDate RecordedSex Assigned at ItaxzZdvv08/24/2025 6:33 PM EDT Legal GueTpvr8808/13/2021 9:43 PM EDTGender LunxggauWvmy98/24/2025 6:33 PM EDT Sexual OrientationHeterosexual or Ozaklzao34/24/2025 6:33 PM EDTdocumented as of this encounter Last Filed Vital Signs Vital SignReadingTime TakenCommentsBlood Itxgfogi27/5801/25/2025 10:33 AM EST Jlmkx588501/25/2025 10:33 AM ESTTemperature--Respiratory Rate--Oxygen Saturation 97%01/25/2025 10:33 AM ESTInhaled Oxygen Concentration--Hcmmov86.4 kg (153 lb) 01/25/2025 10:33 AM OERSgbwqi986.2 cm (5' 7 )01/25/2025 10:33 AM ESTBody Mass Index23.9601/25/2025 10:33 AM ESTdocumented in this encounter Progress Notes * Thania Cabral MD - 01/25/2025 10:30 AM EST Images from the original note were not included. [facility] Cardiology Clinic Note Chief Complaint: Patient here for 3 mo follow up CAD, HFpEF, PAF, HTN, HLD, and carotid artery stenosis. He is now seeing Dr. Rodriguez of vascular surgery and Dr. Peguero of GI with [facility]. Recently found to have stomach cancer. Has upcoming surgery with Dr. Rodriguez on his carotids. Denies chest painand SOB. Does get lightheaded at times but denies syncope/falls. HPI: Waldo Maravilla is a 79 y.o. male h/o CAD s/p CABG and PCI/stents, HTN, paroxysmal a.fib, HLD. Was visiting his daughter in [place] recently; developed significant shortness of breath and was admitted for 5 days. Workup revealed no acute myocardial infarction. He likely suffered an acute on chronic exacerbation of heart failure with preserved ejection fraction. He currently feels back to baseline. He denies chest pain. His shortness of breath is much better. He has no orthopnea or paroxysmal external dyspnea. He denies lower extremity edema. ADMISSION NOTES: The patient is a 78-year-old male from [place] with a significant respiratory distress who was broughtin by the ambulance to the ED with worsening shortness of breath (SOB) over the past three weeks, acutely worsening over the past two to three days. He reports no changes in his medications but notesswelling in his left leg greater than the right. He denies any recent surgeries or prolonged immobilization, though he has had some recent travel. Last night, he felt unable to catch his breath, prompting him to call paramedics. On arrival, his oxygen saturation was in the 80s on room air. He was initially placed on CPAP, which he tolerated well. He was later transitioned to BiPAP and subsequently to nasal cannula oxygen at 4 L/min, with oxygen saturation improving to the 90s. He has a significant past medical history of atrial fibrillation (AFib), coronary artery disease (CAD), essential hypertension, hyperlipidemia, type 2 diabetes mellitus, and ongoing tobacco use (smoking approximately one pack per day). His surgical history includes CABG and PCI in 2010. Troponin were negative, and a chest CT ruled out pulmonary embolism. Ultrasound of the lower extremities did not show evidence of deep vein thrombosis (DVT).Chest X-ray findings included moderate vascular congestion, small bilateral pleural effusions, and small bibasilar infiltrates. An EKG showed n ormal sinus rhythm with nonspecific ST and T-wave abnormalities. The respiratory panel was negative, and lab results revealed hypokalemia and hypomagnesemia, which were replaced in the ED. There was no leukocytosis. Cardiology and pulmonology teams were consulted for recommendations. A prior echocardiogram from 2020 revealed an ejection fraction (EF) of 55-60%, mild right ventricular (RV) dilation with normal systolic function, and bilateral atrial enlargement. A repeat echocardiogram today as per cardiology recommended. UPDATE 07/13/2024 Doing fairly well overall. Short of breath with exertion. No chest pain. Complains of an ache and tiredness in both thighs when he walks particularly upstairs. No rest pain. No skin changes. No ulceration. UPDATE 01/25/2025 Was recently diagnosed with gastric cancer Also has bilateral carotid stenoses and requires carotid endarterectomy Denies new cardiac symptoms Cardiology ROS: Review of Systems Cardiovascular: Positive for claudication. Hematologic/Lymphatic: Bruises/bleeds easily. Neurological: Positive for light-headedness (upon standing up too fast). All other systems reviewed and are negative. Past Medical History He has a past medical history of A-fib ([facility]) (09/29/2021), Abnormal ECG, Arrhythmia, Asthma (09/29/2021), CAD (coronary artery disease) (09/29/2021), Essential hypertension (09/29/2021), Pneumonia (09/29/2021), and Type 1 diabetes ([facility]) (09/29/2021). Surgical History He has a past surgical history that includes Appendectomy; Cataract extraction; Cardiac catheterization; Coronary artery bypass graft (02/15/1999); and Coronary stent placement. Social History He reports that he has quit smoking. His smoking use included cigarettes. He has never used smokeless tobacco. He reports that he does not currently use alcohol. He reports that he does not use drugs. Family History Family History Problem Relation Name Age of Onset Coronary artery disease Brother Other (CABG) Brother Allergies Patient has no known allergies. Medications Current Outpatient Medications: amitriptyline (Elavil) 25 mg tablet, Take 25 mg by mouth if needed each day. (Patient taking differently: Take 25 mg by mouth 1 (one) time each day.), Disp: , Rfl: apixaban (Eliquis) 5 mg tablet, Take 5 mg by mouth in the morning and at bedtime., Disp: , Rfl: aspirin 81 mg EC tablet, Take 81 mg by mouth in the morning., Disp: , Rfl: budesonide-formoteroL (Symbicort) 160-4.5 mcg/actuation inhaler, Inhale 1 puff in the morning and at bedtime., Disp: , Rfl: empagliflozin (Jardiance) 25 mg, Take 25 mg by mouth in the morning. (Patient not taking: Reported on 12/27/2024), Disp: , Rfl: furosemide (Lasix) 40 mg tablet, Take 1 tablet (40 mg) by mouth in the morning. (Patient taking differently: Take 20 mg by mouth in the morning.), Disp: 90 tablet, Rfl: 3 isosorbide mononitrate ER (Imdur) 120 mg 24 hr tablet, Take 120 mg by mouth in the morning. Do not crush or chew., Disp: , Rfl: lisinopril 5 mg tablet, Take 5 mg by mouth in the morning., Disp: , Rfl: magnesium oxide (Mag-Ox) 400 mg (241.3 mg magnesium) tablet, Take 1 tablet by mouth in the morning.(Patient not taking: Reported on 12/27/2024), Disp: , Rfl: metFORMIN (Glucophage) 500 mg tablet, Take 500 mg by mouth with breakfast., Disp: , Rfl: metoprolol tartrate (Lopressor) 25 mg tablet, Take 25 mg by mouth in the morning and at bedtime., Disp: , Rfl: mirtazapine (Remeron) 15 mg tablet, Take 15 mg by mouth at bedtime., Disp: , Rfl: nitroglycerin (Nitrostat) 0.4 mg SL tablet, Place 0.4 mg under the tongue if needed each day., Disp: , Rfl: pantoprazole (ProtoNix) 20 mg EC tablet, Take 20 mg by mouth before breakfast., Disp: , Rfl: potassium chloride CR (K-Tab) 20 mEq ER tablet, Take 1 tablet by mouth in the morning. (Patient nottaking: Reported on 12/27/2024), Disp: , Rfl: ranolazine (Ranexa) 500 mg 12 hr tablet, Take 500 mg by mouth in the morning and at bedtime. Do notcrush, chew, or split., Disp: , Rfl: rosuvastatin (Crestor) 40 mg tablet, Take 40 mg by mouth in the morning., Disp: , Rfl: sertraline (Zoloft) 50 mg tablet, Take 50 mg by mouth in the morning., Disp: , Rfl: spironolactone (Aldactone) 25 mg tablet, Take 25 mg by mouth in the morning., Disp: , Rfl: tamsulosin (Flomax) 0.4 mg 24 hr capsule, Take 0.4 mg by mouth in the morning., Disp: , Rfl: Physical Examination: BP 96/58 (BP Location: Left arm, Patient Position: Sitting) Pulse 71 Ht 1.702 m (5' 7 ) Wt 69.4 kg (153 lb) SpO2 97% BMI 23.96 kg/m?? ' GENERAL: alert and oriented x3, well developed, in no acute distress. HEAD: atraumatic, normocephalic. EYES: YASH, EOMI. NECK: trachea midline, no JVD present, Bilateral carotid bruits CARDIAC: S1, S2 present. RRR. No murmur, rubs, or gallops. RESPIRATORY: CTAB, no increased effort of breathing, no rales, rhonchi, or wheezing. ABDOMEN: soft, nontender, nondistended. EXTREMITIES: no lower extremity edema, peripheral pulses are 2+ bilaterally. No rash/skin discoloration present. NEURO: strength/sensation equal and symmetric in bilateral upper and lower extremities. PSYCH: appropriate mood, affect, and judgement. Stress test 11/20/2021: Moderate sized, moderate severity, inferior wall defect with redistribution on rest suggesting reversible ischemia Borderline left ventricular ejection fraction 55% Normal exercise test Echocardiogram 03/01/2024: Impressions: Left ventricular ejection fraction 55 to 60% Moderately dilated left atrium Mild aortic regurgitation Moderate aortic valve calcification without evidence of aortic stenosis Normal pattern of LV diastolic filling Mild tricuspid regurgitation Assessment: Coronary artery disease; history of coronary artery bypass graft surgery/PCI and stents Heart failure with preserved ejection fraction Paroxysmal atrial fibrillation on Eliquis Mild AR Essential hypertension - now with low BP Dyslipidemia Carotid bruit Active cigarette smoker Diabetes mellitus type 2 Abnormal stress test: Inferolateral ischemia, no targets for revascularization per clinic report Preoperative evaluation Plan: Continue optimal medical therapy for coronary artery disease including aspirin, a statin, a beta-tamica and a RAAS inhibitor Given low blood pressure; will discontinue Norvasc. He is to monitor his blood pressure at home andlet me know if any significant fluctuations. Given diabetes and vascular disease, he is appropriately on Farxiga For heart failure with preserved ejection fraction he is on an SGLT2 inhibitor as well as spironolactone; he appears to be euvolemic at this time. Will consider addition of a diuretic as needed for volume overload. He is to quit smoking He will need serial monitoring for his valvular heart disease as well as carotid stenosis As part of preoperative workup for his carotid surgery and potential gastric surgery in the future,he will need cardiac catheterization including coronary and graft angiography as well as a right heart catheterization. He has already had an abnormal stress test. Return to clinic in 6 months Thania Cabral MD, MPH, FACC, [facility], [facility] Interventional Cardiology Pager Email: [email or web address] documented in this encounter Plan of Treatment DateTypeDepartmentCare Team (Latest Contact Info)Vigruwrcdui18/06/2026 10:30 AM ESTHospital Encounter [facility] V[facility] Lab [address] [place] [address] Thania Cabral MD [address] [place] [address] Pre-op qalssyvbdp47/06/2026 10:30 AM EST - 02/20/2025 11:30 AM ESTSurgery [facility] [address] [address] Thania Cabral MD [address] [place] [address] Coronary angiographydocumented as of this encounter Visit Diagnoses Diagnosis Preoperative clearance- Primary Unspecified pre-operative examination Chronic diastolic heart failure ([facility]) Chronic diastolic heart failure Claudication Unspecified peripheral vascular disease Carotid stenosis, asymptomatic, bilateral Coronary artery disease involving mechoopda coronary artery of mechoopda heart without angina pectoris Primary hypertension Unspecified essential hypertension Cardiovascular stress test abnormal Pre-op evaluation- Primary Pre-op evaluation documented in this encounter Care Teams Team MemberRelationshipSpecialtyStart DateEnd Date Millicent Crowder NP [address] [place] [address] PCP - GeneralFamily Yxylyakx69/11/25documented as of this encounter
--- OUTSIDE RECORDS SUMMARY | 2025-01-28 19:04 | XMS_ITS | Continuity of Care Document ---
Author Organization [facility] Address [address] [place] [address] Phone Care Team Providers Care Economics Teacher Name Role Phone Dandre Peguero MD Attending Provider Dandre Peguero MD Other Provider [phone] NON STAFF Primary Care Provider UnavailSlick Moralez II, DO Attending Provider Waldo Elias MD Attending Provider Artur Chavira MD Attending Provider Slick Lynne II, DO Referring Provider Nadeem Faulkner DO Attending Provider Care Teams Patient Care Team Team [...] DOAttending ProviderActiveStart: January 01, 2025 End: January 01ameron J Ditty , MDReferring ProviderActiveStart: January 01, 2025 End: January 01, 2025 Visit Care Team Team Status: Inactive Member Role/Relationship Status Dates NON STAFF Primary Care Provider Active Start: January 02, 2025 End: January 02, 2025Thomas Olexa , MDAttending ProviderActiveStart: January 02, 2025 End: January 02, 2025 Visit Care Team Team Status: Inactive Member Role/Relationship Status Dates NON STAFF Primary Care Provider Active Start: January 15, 2025 End: January 15, 2025Nosaskia Chavira , MDAttending ProviderActiveStart: January 15, 2025 End: January 15, 2025Slick Lynne II, DOReferring ProviderActiveStart: January 15, 2025 End: January 15, 2025 Visit Care Team Team Status: Inactive Member Role/Relationship Status Dates NON STAFF Primary Care Provider Active Start: January 23, 2025 End: January 23omas Olexa , MDAttending ProviderActiveStart: January 23, 2025 End: January 23, 2025 Visit Care Team Team Status: Inactive [...] Peguero , MDReferring ProviderActiveStart: January 26, 2025 Patient Care Team Team Status: Inactive Member Role/Relationship Status Dates Nadeem Faulkner DO Attending Provider Active S tart: January 27, 2025 End: January 27, 2025 Chief Complaint and Reason for Visit [...] Date Trigger finger, right middle finger Nove [facility] 2024 10:33am Malignant neoplasm of cardia of stomach January 15, 2025 12:47pm Trigger finger, right middle finger Nilsa [facility] 2024 9:57am Reason for Referral Type Reason(s) Provider Provider Contact Information P rovider Address Start Date Malignant neoplasm of cardia of stomach C16.0 - Malignant neoplasm of hquirsJ59.0 - Malignant neoplasm of cardiaNorleena MD Fan[employer] Phone: [phone] [facility] [address]Lpthmbid 2024 Allergies, Adverse Reactions, Alerts Allergen Type Severity Reaction Last Updated Verified Status No Known Allergies Allergy Unknown January 26, 2025 2:27pmYesActive Social History Smoking Status Status Start Date End Date Date of Observa tion Ex-smoker (finding) January 15, 2025 1:10pm Observation Status Observation Response Date of Response Legal Sex Male (finding) Sex Assigned At [facility] 1945 Family History Relationship Condition Age at [...] 8:02amFollow instructions given by officeLisinopril 5 mg oiugvvLmdbzm1TOGOLowhdRreewav 2024 11:00pmUnknownAmitriptyline 25 mg vjnwxpHsmldr16OPHSAlguzPdyzhgo 2024 11:00pmUnknownApixaban (Eliquis) 5 mg ehamyhXcgdmc2YFRKLpuci dailyOctwestlake regional hospital 2024 11:00pmUnknownAspirin 81 mg nlksgvcFxqdvaanwydf91LLBWCjhzyCpnmnkc 2024 11:00pmDecember 2024 1:03pmDapagliflozin Propanediol (Farxiga) 10 mg jkhemnXkupjhosscmd82OXGJSjtxv December 06, 2024 11:00pmDece2024 1:05pmIsosorbide Mononitrate 120 mg tablet extended release 24 nwEmyzwb072QNVVVjvne dailyOctwestlake regional hospital 2024 11:00pm UnknownMetformin 500 mg jkfunfJmlksk418QKBEPdrwhUjlhsek 2024 11:00pm UnknownMetoprolol Tartrate 25 mg xmxgviCrzwmj63BGGVVraaj dailyOctwestlake regional hospital 2024 11:00pmUnknownMirtazapine 15 mg ayqxloMlvihz55GPRSZedqiFrfzuph 2024 11:00pmUnknownPantoprazole 20 mg tablet,delayed release (DR/EC)Qrnvgc51JFCNUazhk December 06, 2024 11:00pmUnknownRanolazine 500 mg tablet extended release 12 hr Gltejk558EOEHXwhaq dailyHarbor [facility]aks Hospital 2024 11:00pmUnknownRosuvastatin 40 mg srywvnKydojk39DTKEVomszBwytqsf 2024 11:00pmUnknownSertraline 50 mg tablet Ffvqqs14TPDTMzvlbEeqkdjj 2024 11:00pmUnknownSpironolactone 25 mg tablet Sqxwnn29QRIBFjrxrCvndgey 2024 11:00pmUnknownFurosemide (Lasix) 20 mg semhavYyyewt31LHNVezggjAsuzkuq 2024 11:00pmUnknownTamsulosin 0.4 mg capsuleActive0.4MGPOdailyOctwestlake regional hospital 2024 11:00pmUnknownIpratropium-Albuterol 18-103 mcg/actuation aerosolDiscontinuedSPRAYIPAALATIONJanuary 01, 2025 12:00amDece2024 1:06pmBudesonide-Formoterol (Symbicort) 160-4.5 mcg/actuation HFA aerosol egosnttMsxkusnmngny8QEZNJUSPCTDKDTaoob dailyT.J. [facility] 2024 12:00amDece2024 1:03pmPotassium Chloride 20 mEq tablet extended xybeswaRzmzmi97YWXGTJeeokWtrculvc 17th, 2025 12:00amUnknownMagnesium Oxide 400 mg magnesium zrzkzkSjwmag271MHEQXgrfqHjajefnf 17th, 2025 12:00am UnknownEmpagliflozin (Jardiance) 25 mg covdvwXecsjv67YISWCqdetJljzpdow 17th, 2025 12:00amUnknownMultivitamin rvxhhlNxbsfp5HSCZQRobcvKlcxufuy 1st, 2025 12:00amUnknownNicotine 14 mg/24 hr patch 24 brpqYymwve7NLWYEMZLYVSDEZJGwrgm January 15, 2025 12:00amUnknownDiphenhydramine Hcl 50 mg pbcfocbRaiajg80EPGO Daily at bedtimeJanuary 15, 2025 12:00amUnknownFerrous Sulfate 325 mg (65 mg iron) gytflgIovgyg679FQZAMgduqAghufbys 1st, 2025 12:00amUnknownFolic Acid 1 mg hloifgKqaucz3XUISYehwkLdczmdms 1st, 2025 12:00amUnknownCholecalciferol (Vitamin D3) 50 mcg (2,000 unit) ytxedubLgquao76HDSTTWdzzzKdhvhtgs 1st, 2025 12:00am UnknownIpratropium-Albuterol 20-100 mcg/actuation zhdiKdvkcf4YHDFFSFMSKRGRTPuty times dailyJanuary 15, 2025 12:00amUnknown Procedures Procedure Date Performed Status CT abdomen pelvis w con January 05, 2025 1:[address] chest w con January 05, 2025 1:44pm compl eted Urine Culture January 27, 2025 active Relevant Diagnostic Tests and/or Laboratory Data Laboratory Results Test Collection Date/Time Result Date/Time Result Interpretation Reference Range Result Comment Performing Site Corrected White Blood Count January 01, 2025 12:32pm January 01, 2025 1:51pm 7.8 10*3/uL 4.1-10.5FOhio[facility] [id number] [address] [place] [address] 68713Oriqsagutuv WBC CountJanuary 01, 2025 12:32pmNovember 2024 1:51pm7.8 10*3/uL4.1-10.5FOhioHealth [facility] [id number] [address] [facility] 71374Xkn Blood CountNov2024 12:32pmNove2024 1:51pm4.59 10*6/uL3.90-5.60[facility] [id number] [address] [facility] 77158NyokavtzccAfcqijye 17th, 2025 12:32pmNove2024 1:51pm 10.9 g/dLBelow low suhbke37.0-17.0[facility] [id number] [address] [facility] 03622WhzjpkrsihMedjvayw 17th, 2025 12:32pmN2024 1:51pm 33.4 %Below low hgiclj80.8-50.0[facility] [id number] [address] [facility] 02471Akya Corpuscular VolumeNov2024 12:32pmNove2024 1:51pm72.7 fLBelow low cdfsii74.5-101[facility] [id number] [address] [place] [address] 65460Ufxt Corpuscular HemoglobinNov2024 12:32pmNove2024 1:51pm23.8 pgBelow low knmerk85.5-35.2FOhioHealth [facility] [id number] [address] [facility] 66968Hpbp Corpuscular Hemoglobin ConcentNovember 2024 12:32pm January 01, 2025 1:51pm32.8 g/dL32.5-35.6FOhioHealth [facility] [id number] [address] [facility] 98303Drh Cell Distribution WidthNov2024 12:32pmNove2024 1:51pm25.1 %Above high gildpo47.0-14.8[facility] [id number] [address] [facility] 75766Awxcnfzi CountNov2024 12:32pmNove2024 1:27dn797 10*3/gY200-257EwnyzoxkhEast [facility] [id number] [address] [facility] 58784Tgrp Platelet VolumeNov2024 12:32pmNovemb2024 1:51pm10.0 fL6.6-10.1FOhioHealth [facility] [id number] [address] [facility] 57256Pislpyryuqe (%) (Auto)January 01, 2025 12:32pmNovember 2024 2:55pm68.7 %.[facility] [id number] [address] [facility] 63844Csnbwwkzfxj (%) (Auto)January 01, 2025 12:32pmNovember 2024 2:55pm17.1 %.[facility] [id number] [address] [facility] 10009Mywiqlftj (%) (Auto)January 01, 2025 12:32pmNovember 2024 2:55pm11.4 %.[facility] [id number] [address] [facility] 56481Iyhcolqrqas (%) (Auto)January 01, 2025 12:32pmNovember 2024 2:55pm2.1 %.[facility] [id number] [address] [facility] 14718Ptfumxdjr (%) (Auto)January 01, 2025 12:32pmNovember 2024 2:55pm0.7 %.[facility] [id number] [address] [facility] 93509Oqqfhfxju RBC Relative Count (auto)January 01, 2025 12:32pm January 01, 2025 2:55pm0.0 /100{WBC}0-0.5FOhioHealth [facility] [id number] [address] [facility] 40324Scrqkmpgqhb # (Auto)January 01, 2025 12:32pmNovember 2024 2:55pm5.4 10*3/uL1.8-7.7FOhioHealth [facility] [id number] [address] [facility] 43771Linrvnqgxsb # (Auto)January 01, 2025 12:32pmNovember 2024 2:55pm1.3 10*3/uL1.00-4.8[facility] [id number] [address] [facility] 50427Zlznpyuem # (Auto)January 01, 2025 12:32pmNovember 2024 2:55pm0.9 10*3/uLAbove high normal0.0-0.8[facility] [id number] [address] [facility] 71885Tnhnmjgcidg # (Auto)January 01, 2025 12:32pmNovember 2024 2:55pm0.2 10*3/uL0.0-0.45[facility] [id number] [address] [place] [address] 61457Jrhdshsky # (Auto)January 01, 2025 12:32pmNovember 2024 2:55pm0.1 10*3/uL0.0-0.2FOhioHealth [facility] [id number] [address] [place] [address] 69000Dfl Blood Cell MorphologyNovember 2024 12:32pmNovember 2024 2:55pmN/[facility] [id number] [address] [place] [address] 22614JiyukpqxdddvtOdhbfynf 2024 12:32pmNovember 2024 2:55pmSlightEast Liverpool City Hospital [facility] [id number] [address] [place] [address] 45894KfnwydjprvoinAkdkzmuf 2024 12:32pmNovember 2024 2:55pmSlightEast [facility] City [facility] [id number] [address] [place] [address] 61098LvcgivnsbppzIfplqetw 2024 12:32pmNovember 2024 2:55pmModerateEast Liverpool City Hospital [facility]tr [id number] [address] [place] [address] 60695HwvugynfcksmMbvitmpa 2024 12:32pmNovember 2024 2:55pmModerateEast [facility] [id number] [address] [place] [address] 84736Caoh Drop CellsNov2024 12:32pmNovember 2024 2:55pmSlightEast [facility] City [facility] [id number] [address] [facility] 52494XnfizanwjoLbfsdtwt 17th, 2025 12:32pmNovember 2024 2:55pm SlightEast [facility] [id number] [address] [facility] 41978Sorvppvw EstimateNov2024 12:32pmNovember 2024 2:55pmNormalNormalEast [facility] [id number] [address] [facility] 36238Hmvbfsdk Morphology CommentJanuary 01, 2025 12:32pmNovember 2024 2:55pmNormalNormSamaritan Hospital [facility] [id number] [address] [facility] 46937Hednvhe LevelNov2024 12:32pmNovemb2024 2:12pm76 mg/cJ72-861ZHC recommended reference rangeRandom Glucose Reference Range is dependent on time and content of last meal. Glucose of more than 200 mg/dL in a nonstressed, ambulatory subject supports the diagnosisof Diabetes Mellitus.[facility] [id number] [address] [facility] 62549Hsdes Urea NitrogenJanuary 05, 2025 1:50pmNov2024 2:17pm8 mg/dL7-25[facility] [id number] [address] [place] [address] 97334GfjhpwrehfTucsbvpm 21st, 2025 1:50pmNov2024 2:17pm 1.36 mg/dLAbove high normal0.70-1.30[facility] [id number] [address] [facility] 38672Nnmmfiyvq GFR (CKD-EPI)January 05, 2025 1:50pmNov2024 2:17pm53.266 mL/MinEast [facility] [id number] [address] [facility] 07729Tgnpzu LevelNov2024 12:32pmNovember 2024 2:76kk204 mmol/W928-903PufciiyxuEast [facility] [id number] [address] [facility] 26478Heimkvcuw LevelNovember 2024 12:32pmNovember 2024 2:12pm4.5 mmol/L3.5-5.1FOhioHealth [facility] [id number] [address] [facility] 71274Ydqoaxww LevelNovember 2024 12:32pmNovember 2024 2:49ck315 mmol/C14-768TcujrwhlxEast [facility] [id number] [address] [facility] 93571Uskcir Dioxide LevelNovember 2024 12:32pmNovember 2024 2:12pm25.7 mmol/L21.0-31.0[facility] [id number] [address] [facility] 52295Zuhgz GapNovember 2024 12:32pmNovember 2024 2:12pm 12.8 mEq/L6.0-15.0[facility] [id number] [address] [place], [place] [address]Calcium LevelNovember 2024 12:32pmNovember 2024 2:12pm9.2 mg/dL8.6-10.3FOhioHealth [facility] [id number] [address] [place] [address] 57770Vxuaf ProteinNovember 2024 12:32pmNovember 2024 2:12pm7.0 g/dL6.4-8.9[facility] [id number] [address] [place] [address] 73430JxjvorwEdyznkfp 2024 12:32pmNovember 2024 2:12pm4.0 g/dL3.5-5.7FOhioHealth [facility] City [facility] [id number] [address] [place] [address] 53325MlutasdiSseynuet 2024 12:32pmNovember 2024 2:12pm 3.0 g/dLEast Liverpool City Hospital Ctr [id number] [address] [place] [address] 90065Kyeqzdb/Globulin RatioNovember 2024 12:32pmNovember 2024 2:12pm1.3FOhioHealth [facility] [id number] [address] [facility] 41187Epuod BilirubinNovember 2024 12:32pmNovember 2024 2:12pm0.4 mg/dL0.3-1.0[facility] [id number] [address] [facility] 98172Dnbsckftu Amino Transf (AST/SGOT)January 01, 2025 12:32pm January 01, 2025 2:12pm13 U/J08-88CsidofgafEast [facility] City Hospital [facility]tr [id number] [address] [facility] 52470Bgzndsb Aminotransferase (ALT/SGPT)January 01, 2025 12:32pm January 01, 2025 2:12pm10 U/L7-52[facility] [id number] [address] [place] [address] 86233Jpoimuyn PhosphataseNov2024 12:32pmNovemb2024 2:12pm95 U/V62-094RvikltzydEast [facility] City Hospital [facility]tr [id number] [address] [place] [address] 97727Afku LevelNovember 2024 12:32pmNovemb2024 2:41pm 24 ug/dLBelow low gafixf09-710NmzphlptsEast [facility] [id number] [address] [place] [address] 28225Rtthn Iron Binding CapacityNov2024 12:32pmNovemb2024 2:57ta491 ug/lL274-610IgcutlvdwEast [facility] [id number] [address] [place] [address] 68063Rfta SaturationNovember 2024 12:32pmNovemb2024 2:41pm6.3 %Below low uumywv92-46VfduwbontEast [facility] City Hospital [facility] [id number] [address] [place] [address] 03121WkddvbhpnivYbmrpmsw 2024 12:32pmNovember 2024 2:62md391 mg/yE852-651AmmukitmjEast [facility] [id number] [address] [place] [address] 86961ChtxjwesVhrvtpog 17th, 2025 12:32pmNovember 2024 2:34pm 11.8 ng/mLBelow low gwyrgk24.9-336.2FOhioHealth [facility] [id number] [address] [place] [address] 41098Pmwzyphjcbkeyama AntigenNov2024 12:32pmNovember 2024 2:25pm2.9 ng/mL0.0-3.0Serial tumor marker results determined by assays using different manufacturers or methods may not be comparable.[facility] band 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 ASSAY.[facility] [id number] [address] [place] [address] 96450Nkzpkjh B12 LevelNov2024 12:32pmNovemb2024 2:74sj4849 pg/mLAbove high vfrapb768-899BgalqqzceEast [facility] [id number] [address] [place] [address] 90110CvxqmfZzxijqsl 17th, 2025 12:32pmNovember 2024 3:20pm29.0 ng/mL>5.9Folate reference range: >5.9 ng/mlThe WHO technical consultation on folate and vitamin a07xunbsreaubjr has determined that folate concentrations lessthan 4 ng/ml are considered deficient.[facility] [id number] [address] [place] [address] 20320Vyqzilxk Creatinine Clearance (ChemNov2024 1:50pm January 05, 2025 2:17pm40.40[facility] [id number] [address] [place] [address] 06995 Diagnostic Imaging Reports Author Mukesh Pisano [facility] SystemAuthoredNov2024 3:40pmReport Dictated Date/TimeDictated ByStatusRadiology ReportNov2024 3:40pm Mukesh Pisano Jr DOcompleteKindred [facility] Main [address] [address] [address] Scan Report Signed Patient: Waldo Maravilla MR#: [id number] : 1945 Acct:[id number] Age/Sex: 79 / M ADM Date: 11/21/2 5 Loc: Room: Type: [facility] RCR Attending Dr: Slick Lynne II, DO Copies to: Slick Lynne II, DO~ Ordering Provider: Slick Lynne II, DO Date of Service: 01/05/25 CT/CT chest w con: C16.0 - Malignant neoplasm of cardia ([id number]) CT/CT abdomen pelvis w con: C16.0 - [...] Jr., D.O. 01/05/2025 3:45 PM Dictation Location: [place] [address] Transcribed By: [facility] 01/05/25 8081 Dictated By: Mukesh Pisano Jr, DO 01/05/25 1540 Signed By: <Electronically signed by Mukesh Pisano Jr, DO in OV> 01/05/25 1545 Vital Signs Vital Reading Result Reference Range Collection Date/Time Height 66.5 [in_i] December 18, 2024 8:35muPozqxq38.13 kgDecember 18, 2024 8:00amHeart Rate73 /ohj05-416MqvzwsdyDecember 18, 2024 9:38amRespiratory rate16 /tvr20-55NabkulmnDecember 18, 2024 9:38amOxygen saturation by Pulse cagwxrxl078 %95-100December 18, 2024 9:38amBP Ppajdcwp636 mm[Hg]100-140December 18, 2024 9:38amBP Zqefcazmu91 mm[Hg] 60-100December 18, 2024 9:16niUcgpdx84.50 [in_i]January 01, 2025 10:37am Uhocxc17.76 kgJanuary 01, 2025 10:37amBody Gnmlllgqltc99.5 [degF]97.6-99.0 January 01, 2025 10:37amHeart Rate57 /isn00-912IhbztiunJanuary 01, 2025 10:37am Respiratory rate16 /ytv82-96LhrkuksnJanuary 01, 2025 10:37amOxygen saturation by Pulse vnnoakgh93 %95-100January 01, 2025 10:37amBP Gwcfglog866 mm[Hg]100-140 January 01, 2025 10:37amBP Qomuvflxj92 mm[Hg]60-100January 01, 2025 10:37amBMI (Body Mass Index)24.7 kg/r7WkmmgmvvJanuary 01, 2025 10:20yqAvblnu87.70 kg January 15, 2025 1:01pmHeart Rate80 /cbo20-341Fplpmawk 1st, 2025 1:01pm Respiratory rate16 /ork71-71Vfopuyyh 1st, 2025 1:01pmOxygen saturation by Pulse frahsbku27 %95-100Decemb2024 1:01pmBP Cojhfcwa846 mm[Hg]100-140Decemb2024 1:01pmBP Xdkpwrhlv62 mm[Hg]60-100Decemb2024 1:40fdSyzwww77.30 kgDece2024 2:25pmHeart Rate75 /clq05-860Ztntzusb 12th, 2025 2:25pm Respiratory rate20 /sxd22-55QhsyujqzJanuary 26, 2025 2:25pmOxygen saturation by Pulse okpgqone75 %95-100January 26, 2025 2:25pmBP Rlrtoecz198 mm[Hg]100-140 January 26, 2025 2:25pmBP Qvotfmnpu91 mm[Hg]60-100Decemb2024 2:25pm Zfarxc00.50 [in_i]January 01, 2025 10:23xcYharwl71.30 kgDece2024 2:25pmHeart Rate77 /uga74-187FinlrwacJanuary 23, 2025 1:24pmRespiratory rate18 /min -2024 3:28pmOxygen saturation by Pulse wvzuvcgc44 %95-100 January 23, 2025 1:24pmBP Oqmorrju885 mm[Hg]100-140January 23, 2025 3:28pmBP Bburngqyn37 mm[Hg]60-100Decemb2024 3:28pm Advance Directives Advance Directive Response Recorded Date/ Time Advance Directives No October 12:01pm Insurance Providers Guarantor Waldo Morrissey Renita Address [address] [facility] [address]Zdlduju Info.Home Phone: Coverage Status Update:2024 Payer Group Member ID Coverage Type Subscriber Relationship to Subscriber Effective Date Expiration Date [facility] [id number] [id number] L Shannon Id: [id number] [address] [facility] [address] Home Phone: Self Encounters Encounter Location(s) Arrival/Admit Date Discharge/Departure Date Discharge/Departure Disposition Provider(s) Non-patient / Non-visit -[facility] 2024 7:38am Dandre Peguero MDDeparted Physician/Provider [facility] 10:35amNovember 2024 12:06pmDischarged to home care or self care (routine discharge)Slickriana Lynne II DODeparted Physician/Provider [facility] 20[facility] 10:33amNovember 2024 10:49amDischarged to home care or self care (routine discharge)Waldo Elias , YAMILeparted Physician/Provider Office Visit-[facility] 2024 12:47pmDeceb[facility] 2024 2:36pmDischarged to home care or self care (routine discharge)YAMIL Sarmientoeparted Physician/Provider Office Visit-[facility] 2024 9:57amDecebanner [facility] 2024 10:08amDischarged to home care or self care (routine discharge)YAMIL Fieldeparted Physician/Provider Office Visit-[facility] 2024 2:[facility]pm[facility] 2024 3:00pmDischarged to home care or self care (routine discharge)Slick Lynne II DO Registered Recurring-[facility] 2024 2:25pmSlick Lynne II DODeparted Referred-[facility] 9:00pmDecebanner [facility] 2024 9:01pmDischarged to home care or self care (routine discharge)Ja Mejía DO Recent Diagnosis Onset Date Admit Date [...] January 15, 2025 12:47pmTrigger finger, right middle fingeracuteDeceer 2024 9:57am Plan of Treatment Author Artur Chavira [facility] 2024 1:06pmPatient to proceed to a surgical appointment today. We await surgical input. 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 Await surgical input. Author Renea [facility] 2024 10:10amPatient is progressing well. We will allow more time for symptoms to fully resolve. May consider repeat injection versus surgical release if symptoms recur. Author Renea [facility] 2024 10:47amThis appears to trigger finger. We [...] Tests Test Name Ordered Date Scheduled Date Urine Culture January 27, 2025 9:00pm [facility] 2024 12:00pm3 WeeksComprehensive Metabolic PanelDecebanner ocotillo medical center 2024 2:54pm3 Weeks Future Visits Future appointment information is unavailable Future Procedures Procedure Name Ordered Date Scheduled Date Discharge Order December 18, 2024 9:22am Novemb er 2024 9:22am Complete Blood Count Auto Diff [...] 02, 2025 1:40pm January 23, 2025 12:00am Urine Culture January 28, 2025 12:51pm January 27, 2025 9:00pm Vitamin B12 January 01, 2025 12:00pm 3 [...] 2:54pm 3 Weeks Vit. B12/Folate Profile January 26 2:54pm 3 Weeks Future Medications Future medication information is unavailable Patient Instructions Instruction Admit Date Hiatal hernia - Discharge in [facility] Hemorrhoids Discharge Instructions Know your MedsNovember 2024 7:38am
--- OUTSIDE RECORDS SUMMARY | 2025-02-02 10:35 | XMS_ITS | Clinical Summary ---
Author Organization [facility] Address [address] [place] [address] Care Team Providers Care Cad Engineer Name Role Phone Unavailable Primary Care Provider [...] Plan of Treatment Health MaintenanceDue DateLast DoneCommentsAnxiety Xihkujoyw74/01/1965Depression Ylqmjdtnv33/01/1965Hepatitis C Uubvgbuly99/01/1965DTaP,Tdap,Td Vaccine (1 - Tdap)1965Pneumococcal Vaccine: 50+ (1 of 1 - PCV)1996Shingrix Vaccine (1 of 2)1996RSV Vaccine (1 - 1-dose 75+ series)2021dvance Directive Ziqkkuiega41/01/2025Covid-19 Vaccine ( season)2024 05/08/2020, 04/11/2020Influenza Vaccine (#1)/02/2014Diabetes Rtxthrgaf55/17/821663/, 08/06/2024, 08/06/2024, Additional history exists Insurance
--- OUTSIDE RECORDS SUMMARY | 2025-02-02 10:35 | XMS_ITS | Clinical Summary ---
Author Organization [facility] Address [address] [facility] [place] [address] Care Team Providers Care Treasury Management Sales Consultant Name Role Phone Unavailable Primary Care Provider Unavailabl e Source Comments The following information is NOT included in Care Everywhere downloads:Psychiatric notes, ECG results, Cardiac Rehab notes, Pulmonary Function notes, data from SmartForms (includes but not limited toPregnancy data,audiograms, eye exams, pre-surgical evaluation notes, well-child exam data).[facility] Immunizations ImmunizationAdministration DatesNext DueInfluenza, intradermal, trivalent, preservative free (IIV3) (GDP=095)10/16/2014Moderna Monovalent (12+ yrs) COVID- 19 vaccine, mRNA, spike protein, LNP, PF, 100 mcg/0.5 mL (BUI=504)05/08/2020, 04/11/2020 Social History Tobacco UseTypesPacks/DayYears UsedDateSmoking Tobacco: Never AssessedSex and Gender InformationValueDate RecordedSex Assigned at BirthNot on fileLegal Sex Male09/27/2017 4:29 PM EDTGender IdentityNot on fileSexual OrientationNot on file Plan of Treatment Health MaintenanceDue DateLast DoneCommentsHepatitis C Kyalgivt23/01/1965Tdap Wntmswh7607/16/1964Hepatitis A (HAV) Vaccine (optional start 19+ years)1965 Tetanus (Td or Tdap) Ptldkkh4107/16/1965Pneumococcal Vaccine(s) (50+ yrs) (1 of 1 - PCV)1996Shingles (RZV) Vaccine (1 of 2)1996Annual Wellness Visit (G0438)05/16/2006Hepatitis B (HBV) Vaccine (optional start 60+ years)2006 RSV vaccine (adult) (1 - 1-dose 75+ series)2COVID-19 Vaccine (3 - 2024- season)503/, 04/11/2020Influenza Vaccine (#1)2024 10/16/2014 Insurance
--- OUTSIDE RECORDS SUMMARY | 2025-02-02 10:35 | XMS_ITS | Clinical Summary ---
Author Organization [facility] Address [address] [place] [address] Care Team Providers Care Resourcing Advisor Name Role Phone Unavailable Primary Care Provider Unavailabl e Encounters DateTypeDepartmentCare FuqjNbehorxfrfh08/21/2025External Result Encounter [facility] External Department Unsolicited Slick [...] Procedure NamePriorityDate/TimeAssociated DiagnosisCommentsCT ABDOMEN PELVIS W IV MBBGPTSW93/21/2025 3:40 PM EST GTXKFSTCEKRCZO79/21/2025 1:50 PM EST UREA NITROGEN, BODY GXGRJIIEK85/21/2025 1:50 PM EST SCAN AND ONKUujtpnc13/17/2025 12:32 PM EST IRON AND TOTAL IRON BINDING IKMDHCOVTogzwco12/17/2025 12:32 PM EST VIT. B12/FOLATE MKUMGDJYnenfdx42/17/2025 12:32 PM EST XVMPKCXIPififaz86/17/2025 12:32 PM EST CARCINOEMBRYONIC LBWKWDJLevxelw73/17/2025 12:32 PM EST COMPREHENSIVE METABOLIC XKBNIIoghlnt96/17/2025 12:32 PM EST from Last 3 Months [...] ?01/05/25 1545 Narrative 01/05/2025 3:48 PM EST [facility] ?[facility] [place] ?[address] ? [place] [address] ? CT Scan Report ? Signed ? Patient: Renita,Waldo L ?MR#: [id number] ?? [id number] ? : 1945 ?Acct:[id number] ? Age/Sex: 79 / M ?ADM Date: 01/05/25 ? Loc: XT ?Room: ?Type: REG RCR ?? Attending Dr: Slick Lynne II DO ?? Copies to: Slick Lynne II, DO ? Ordering Provider: Slick Lynne II, DO ?? Date of Service: 01/05/25 ?? 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 01/05/2025 3:45 PM Dictation Location: [place] [address] Transcribed By: [facility] 01/05/25 1545 Dictated By: Mukesh Pisano Jr, DO 01/05/25 1540 Signed By: <Electronically signed by Mukesh Pisano Jr, DO inOV> 01/05/25 1545 Authorizing ProviderResult TypeResult StatusSlick Lynne [facility] CT PROCEDURESFinal Result * Urea nitrogen, body fluid (01/05/2025 1:50 PM EST)ComponentValueRef RangeTest MethodAnalysis TimePerformed AtPathologist FryctuptkTVR40 - 25 mg/dL01/05/2025 2:17 PM [facility] CtrSpecimen (Source)Anatomical Location / LateralityCollection Method / VolumeCollection TimeReceived TimeOther Topography unknown / Mpgqdfg5401/05/2025 1:50 PM EST01/05/2025 2:02 PM EST [facility] 01/05/2025 2:17 PM EST STAT FOR CT Authorizing ProviderResult TypeResult StatusSlick Lynne DOLAB BODY FLUIDS AND STOOLS ORDERABLESFinal ResultPerforming OrganizationAddress City/State/ZIP CodePhone Number [address] [address], [facility] [address] [place] [address] * (ABNORMAL) Creatinine (01/05/2025 1:50 PM EST)ComponentValueRef RangeTest MethodAnalysis TimePerformed AtPathologist SignatureCREATININE1.36(H)0.70 - 1.30 mg/dL01/05/2025 2:17 PM [facility] CtrESTIMATED GFR 53.2868701/05/2025 2:17 PM [facility] CtrCREATININE CLR CALC ULXNKBNW80.40103/07/2024 2:17 PM [facility] CtrSpecimen (Source)Anatomical Location / LateralityCollection Method / VolumeCollection TimeReceived TimeOtherTopography unknown / Rylcrjp0501/05/2025 1:50 PM EST 01/05/2025 2:02 PM EST Narrative [facility] - 01/05/2025 2:17 PM EST STAT FOR CT Authorizing ProviderResult TypeResult StatusTimriana Lynne DOL BLOOD ORDERABLESFinal ResultPerforming OrganizationAddDuke Lifepoint Healthcare/State/ZIP CodePhone Number [address] [address], [facility] [address] [place] [address] * (ABNORMAL) SCAN AND CBC (01/01/2025 12:32 PM EST)ComponentValueRef RangeTest MethodAnalysis TimePerformed AtPathologist SignatureWBC7.84.1 - 10.5 [CFU]/mL 01/01/2025 1:51 PM [facility] CtrUNCORRECTED WHITE BLOOD COUNT7.84.1 - 10.5 10*3/uL01/01/2025 1:51 PM [facility] RBC4.593.90 - 5.60 10*6/uL01/01/2025 1:51 PM [facility] ZCALKKOUJC74.9(L)13.0 - 17.0 g/dL01/01/2025 1:51 PM [facility] CkaIJYTWJUYNM53.4(L)38.8 - 50.0 %01/01/2025 1:51 PM [facility] XxpSBL28.7(L)83.5 - 101 fL01/01/2025 1:51 PM [facility] QbcCHD29.8(L)27.5 - 35.2 pg01/01/2025 1:51 PM [facility] YlzMVPS23.832.5 - 35.6 g/dL01/01/2025 1:51 PM [facility] CtrRED CELL DISTRIBUTION WIDTH, RDW25.1(H)12.0 - 14.8 % 01/01/2025 1:51 PM [facility] CtrPLATELET VPLLF338772 - 450 10*3/uL01/01/2025 1:51 PM [facility] CtrMEAN PLATELET VOLUME, MPV10.06.6 - 10.1 fL01/01/2025 1:51 PM [facility] CtrNEUTROPHILS, %68.7. %01/01/2025 2:55 PM [facility] LYMPHOCYTES, %17.1. %01/01/2025 2:55 PM [facility] MONOCYTE/MACROPHAGE, %11.4. %01/01/2025 2:55 PM [facility] CtrEOSINOPHILS, %2.1. %01/01/2025 2:55 PM [facility] BASOPHILS, %0.7. %01/01/2025 2:55 PM [facility] CtrNRBC0.00 - 0.5 /100{WBC}01/01/2025 2:55 PM [facility] NEUTROPHILS5.41.8 - 7.7 10*3/uL01/01/2025 2:55 PM [facility] CtrLYMPHOCYTES1.31.00 - 4.8 10*3/uL01/01/2025 2:55 PM [facility] CtrMONOCYTES0.9(H)0.0 - 0.8 10*3/uL01/01/2025 2:55 PM [facility] CtrEOSINOPHILS0.20.0 - 0.45 10*3/uL01/01/2025 2:55 PM [facility] CtrBASOPHILS0.10.0 - 0.2 10*3/uL01/01/2025 2:55 PM [facility] ZqbJAQGNDXJDQENOZddhjx94/17/2025 2:55 PM [facility] ZmcCCGXSVIWHIJLVRqzvhg57/17/2025 2:55 PM [facility] RmeNGQKEDWSGIVARbpxqwqp67/17/2025 2:55 PM [facility] JcuYRJYFBINYIRNWopboaco89/17/2025 2:55 PM [facility] CtrTEAR DROP EAFPUHgdbuz07/17/2025 2:55 PM [facility] FuwXEYPNCDQKKAbtdpp55/17/2025 2:55 PM [facility] CtrPLATELET RJGRSHHTTfvflpEbyeby65/17/2025 2:55 PM [facility] CtrPLATELET XVGHONECKVPyjdlkZpdfwn59/17/2025 2:55 PM [facility] CtrSpecimen (Source)Anatomical Location / LateralityCollection Method / VolumeCollection TimeReceived TimeBlood (Blood) 01/01/2025 12:32 PM EST01/01/2025 12:32 PM EST Narrative Authorizing ProviderResult TypeResult StatusSlick Lynne DOLAB BLOOD ORDERABLESFinal ResultPerforming OrganizationAddressCity/State/ZIP CodePhone Number [facility] [address] [place] [address], [facility] [address] [place] [address] * CARCINOEMBRYONIC ANTIGEN (01/01/2025 12:32 PM EST)ComponentValueRef RangeTest MethodAnalysis TimePerformed AtPathologist SignatureCARCINOEMBRYONIC ANTIGEN 2.90.0 - 3.0 ng/mL01/01/2025 2:25 PM [facility] CtrComment: Serial tumor marker results determined by assays using different manufacturers or methods may not be comparable. [facility] Laboratory director dermatology and method: GARTH UNICMingxieku DXI, ??2 SITE IMMUNOENZYMATIC ???SANDWICH?? ASSAY. Specimen (Source)Anatomical Location / LateralityCollection Method / Volume Collection TimeReceived TimeOtherTopography unknown / Xvvmrww9901/01/2025 12:32 PM EST01/01/2025 12:32 PM EST Narrative Authorizing ProviderResult TypeResult StatusMichaelriana Nikolai Guera DOLAB BLOOD ORDERABLESFinal ResultPerforming OrganizationAddressCity/State/ZIP CodePhone Number [address] [place] [address], [facility] [address] [place] [address] * (ABNORMAL) VIT. B12/FOLATE PROFILE (01/01/2025 12:32 PM EST)ComponentValueRef RangeTest MethodAnalysis TimePerformed AtPathologist SignatureVITAMIN B121,033 (H)180 - 914 pg/mL01/01/2025 2:38 PM [facility] CtrFOLATE 29.0>5.9 ng/mL01/01/2025 3:20 PM [facility] CtrComment: Folate reference range: >5.9 ng/ml The WHO technical consultation on folate and vitamin b12 deficiencies has determined that folate concentrations less than 4 ng/ml are considered deficient. Specimen (Source)Anatomical Location / LateralityCollection Method / Volume Collection TimeReceived TimeOtherTopography unknown / Dbqxyvp7201/01/2025 12:32 PM EST01/01/2025 12:32 PM EST Narrative [facility] - 01/01/2025 3:20 PM EST FE TIBC ADDED ON TO PREVIOUS REQUISITION SOPHIA MISSED ORDER WHEN TUBE WAS DRAWN, ADDED ON PER CANCER CENTER Authorizing ProviderResult TypeResult StatusSlick Albajane DOL BLOOD ORDERABLESFinal ResultPerforming OrganizationAddressCity/State/ZIP CodePhone Number [address] [address], [facility] [address] [place] [address] * (ABNORMAL) Iron and TIBC (01/01/2025 12:32 PM EST)ComponentValueRef RangeTest MethodAnalysis TimePerformed AtPathologist JerqkmmizYUEA99(L)50 - 212 ug/dL 01/01/2025 2:41 PM [facility] CtrTOTAL IRON BINDING ZZUXEOCE213484 - 450 ug/dL01/01/2025 2:41 PM [facility] % IRON SATURATION6.3(L)20 - 50 %01/01/2025 2:41 PM [facility] JmwYJJFJDJGTRG520167 - 362 mg/dL01/01/2025 2:41 PM [facility] CtrSpecimen (Source)Anatomical Location / Laterality Collection Method / VolumeCollection TimeReceived TimeOtherTopography unknown / Lldjorx2701/01/2025 12:32 PM EST01/01/2025 12:32 PM EST Narrative [facility] - 01/01/2025 3:20 PM EST FE TIBC ADDED ON TO PREVIOUS REQUISITION SOPHIA MISSED ORDER WHEN TUBE WAS DRAWN, ADDED ON PER CANCER CENTER Authorizing ProviderResult TypeResult StatusSlick BowdenbobbyNorthern Light C.[facility]. [facility] BLOOD ORDERABLESFinal ResultPerforming OrganizationAddressty/State/ZIP CodePhone Number [facility] [address] [place] [address], [facility] [address] [place] [address] * (ABNORMAL) Ferritin (01/01/2025 12:32 PM EST)ComponentValueRef RangeTest MethodAnalysis TimePerformed AtPathologist DlmixillqIIRLBJLI04.8(L)23.9 - 336.2 ng/mL01/01/2025 2:34 PM [facility] CtrSpecimen (Source)Anatomical Location / LateralityCollection Method / VolumeCollection TimeReceived TimeOtherTopography unknown / Dnqxxks4001/01/2025 12:32 PM EST 01/01/2025 12:32 PM EST [facility] - 01/01/2025 3:20 PM EST FE TIBC ADDED ON TO PREVIOUS REQUISITION SOPHIA MISSED ORDER WHEN TUBE WAS DRAWN, ADDED ON PER CANCER CENTER Authorizing ProviderResult TypeResult StatusSlick BowdenFormerly [facility] BLOOD ORDERABLESFinal ResultPerforming [facility] CampusAddD[facility]/State/ZIP CodePhone Number [facility] [address] [place] [address], [facility] [address] [place] [address] * (ABNORMAL) Comprehensive metabolic panel (01/01/2025 12:32 PM EST)Component ValueRef RangeTest MethodAnalysis TimePerformed AtPathologist SignatureGlucose 7670 - 100 mg/dL01/01/2025 2:12 PM [facility] CtrComment: Random Glucose Reference Range is dependent on time and content of last meal. Glucose of more than 200 mg/dL in a nonstressed, ambulatory subject supports the diagnosis of Diabetes Mellitus. ADA recommended reference range INR505 - 25 mg/dL01/01/2025 2:12 PM [facility] CtrCREATININE 1.32(H)0.70 - 1.30 mg/dL01/01/2025 2:12 PM [facility] ESTIMATED GFR55. 2:12 PM [facility] FfqNvhavx768 136 - 145 mmol/L103/03/2024 2:12 PM [facility] CtrPotassium, Bld4.53.5 - 5.1 mmol/L103/03/2024 2:12 PM [facility] Uooyfbjd22187 - 107 mmol/L103/03/2024 2:12 PM [facility] Carbon Fqvkoau61.721.0 - 31.0 mmol/L103/03/2024 2:12 PM [facility] CtrAnion Gap12.86.0 - 15.011 2:12 PM [facility] CtrCalcium9.28.6 - 10.3 mg/dL01/01/2025 2:12 PM [facility] CtrTOTAL PROTEIN7.06.4 - 8.9 g/dL01/01/2025 2:12 PM [facility] CtrALBUMIN LEVEL4.03.5 - 5.7 g/dL01/01/2025 2:12 PM [facility] CtrGLOBULIN3.0g/dL01/01/2025 2:12 PM [facility] CtrALBUMIN/GLOBULIN RATIO1.311 2:12 PM [facility] CtrBILIRUBIN,TOTAL0.40.3 - 1.0 mg/dL01/01/2025 2:12 PM [facility] CtrASPARTATE AMINO QQIYHAHJODQ5412 - 39 U/L103/03/2024 2:12 PM [facility] CtrALANINE OJITHDSDXNZMWGIB385 - 52 U/L 01/01/2025 2:12 PM [facility] CtrALKALINE ABICFLJKNDX3429 - 104 U/L103/03/2024 2:12 PM [facility] CtrCREATININE CLR CALC UVIBTAZX48.6201/01/2025 2:12 PM [facility] CtrSpecimen (Source)Anatomical Location / LateralityCollection Method / VolumeCollection TimeReceived TimeOtherTopography unknown / Wvrxrus7801/01/2025 12:32 PM EST 01/01/2025 12:32 PM EST Narrative [facility] - 01/01/2025 3:20 PM EST FE TIBC ADDED ON TO PREVIOUS REQUISITION SOPHIA MISSED ORDER WHEN TUBE WAS DRAWN, ADDED ON PER CANCER CENTER Authorizing ProviderResult TypeResult StatusSlick Lynne DOLAB BLOOD ORDERABLESFinal ResultPerforming OrganizationAddressCity/State/ZIP CodePhone Number [facility] [address] [place] [address], [facility] [address] [place] [address] from Last 3 Months
--- OUTSIDE RECORDS SUMMARY | 2025-02-02 10:35 | XMS_ITS | Encounter Summary ---
Author Organization [facility] Address [address] [place] [address] Care Team Providers Care Automotive Specialty Technician Name Role Phone Millicent Crowder CORE MOUNTER Primary Care Provider [phone] Encounter Details DateTypeDepartmentCare Team (Latest Contact Info)Hfxmsismzop57/11/2025Orders Only [facility] [address] [place] [address] Kylah Doyle MA Pre-op evaluation [...] file04/08/2023Sex and Gender InformationValueDate RecordedSex Assigned at ZfzqlSnzo26/24/2025 6:33 PM EDT Legal JcvDzhm8208/13/2021 9:43 PM EDTGender UoluswofMsls55/24/2025 6:33 PM EDT Sexual OrientationHeterosexual or Dubnclpj79/24/2025 6:33 PM EDTdocumented as of this encounter Plan of Treatment DateTypeDepartmentCare Team (Latest Contact Info)Qfdgvdvhyen39/06/2026 10:30 AM ESTHospital Encounter [facility] [address] [place] [address] Thania Cabral MD [address] [place] [id number] Pre-op jiwptjmwcu23/06/2026 10:30 AM EST - 02/20/2025 11:30 AM [facility] [address] [place] [address] Thania Cabral MD [address] [place] [phone] Coronary angiographyNameTypePriorityAssociated DiagnosesOrder ScheduleCBC and differentialLabRoutine Pre-op [...] DateEnd Date Millicent Crowder NP [address] [address] PCP - GeneralFamily Ympycrxj32/11/25documented as of this encounter
--- OUTSIDE RECORDS SUMMARY | 2025-02-02 10:35 | XMS_ITS | Clinical Summary ---
Author Organization [facility] Address [address] [place] [address] Care Team Providers Care Hearing Examiner Name Role Phone Millicent Crowder [employer] Primary Care Provider [phone] Allergies No known active allergies Medications MedicationSigDispense [...] morning.5Active Active Problems ProblemNoted DateDiagnosed DateCarotid artery cdvsmphi29/11/2025Pre-op reifmrjpbw32/11/2025BMI 25.0-25.9,adult01/22/2025hronic obstructive pulmonary umxqfgx1801/22/2025Heart ndebnyh5501/22/2025 Overview (01/22/2025): noted in 10/12/2024 ED Note page 17. added per OP [facility]I policy. Malignant neoplasm of cardia of tpvrzwy6701/22/2025Occlusion of carotid artery 01/22/2025 Overview (01/22/2025): noted in 10/12/2024 ED Note page 17. added per OP [facility] policy. PVC (premature ventricular contraction)01/22/2025Trigger finger, right middle ysivab7601/22/2025Varicose veins of bilateral lower extremities with other ruybynzhepvrd19/08/2025Malignant neoplasm of lower third of ugjolcojs06/01/2025 Flash pulmonary edema08/03/2024Hypoxic respiratory qmcnmpu7508/03/2024Dizziness and wymjtujco92/29/2025Nail disorder, teegrslyomj19/29/2025bnormal findings on diagnostic imaging of lung03/13/2024 Overview (03/13/2024): Aug 01, 2020 Entered By: MAXINE SLADAÑA Comment: CT 04/2020.Repeat in 07/2020-->findings stable. Repeat 07/2021 Actinic /27/2025enign prostatic hyperplasia with urinary obstruction 03/13/2024hronic ccyujrst96/27/2025hronic ischemic heart disease, unspecified 03/13/2024Depressive tfswnxoy29/27/2025Diabetic /27/2025Encounter for screening for malignant neoplasm of skin03/13/20249537Lbibcjkbeqr15/27/2025 Impacted cerumen, left ear03/13/2024Long term current use of anticoagulant thcdlrh1503/13/2024Major depressive disorder, recurrent, mild03/13/2024Nicotine dependence, cigarettes, ahhsihowaaoii49/27/2025Obstructive sleep apnea of adult 03/13/2024Personal history of noncompliance with medical treatment, presenting hazards to gufrmk8003/13/2024Post-traumatic stress disorder, uceczgqzerq85/27/2025 Pulmonary okkyhdikgg11/27/2025Sensorineural hearing loss (SNHL) of both ears 03/13/2024Transient ischemic vdojon0203/13/2024Type 2 diabetes mellitus without xtajhgcteuzrw17/27/2025Vitamin D jizcdfdatd78/27/2025hronic diastolic congestive heart ejcbssf6803/01/2024Tobacco abuse03/01/20241254Trartb93/15/2022-fib 09/29/2021AD (coronary artery disease)09/29/2021Essential hypertension 09/29/20214871Hqmpvqychdvixd30/15/4881Manpkdgyj23/15/2022Type 1 brorrdbd93/15/2022 Encounters DateTypeDepartmentCare SwptPhtbbzzjxku86/11/2025 10:30 AM ESTOffice Visit [facility] [address] [place] [address] Thania Cabral MD Preoperative clearance (Primary Dx); Chronic diastolic heart failure (CMS/HCC); Claudication; Carotid stenosis, asymptomatic, bilateral; Coronary artery disease involving [place] coronary artery of [place] heart without angina pectoris; Primary hypertension; Cardiovascular stress test ucjfbhke40/11/2025Orders Only [place] [address] [place] [address] Kylah Doyle MA Pre-op evaluation (Primary Dx); Chronic heart failure with preserved ejection fraction (HFpEF) (CMS/HCC) 01/25/2025Telephone [facility] [place] [facility] [address] [place] [address] Eveline Bowens MA surgery bhuppfusni42/12/2025 2:15 PM ESTConsult [facility] [place] [facility] [address] [place] [address] Mikki Rodriguez MD Symptomatic stenosis of right carotid artery without infarction (Primary Dx) 12/27/2024 - 12/27/2024 11:59 PM ESTHospital Encounter [facility] Radiology External Films [address] [place] [address] Discharge Disposition: Home or Self Care ()12/27/2024bstract [facility] Cardiology [address] [place] [address] Rd, [address] [place] [address] Adelaida Saha MA 11/15/2024Telephone [facility] [address] [place] [address] Rosemary Calvin MA from Last 3 Months Family History Medical HistoryRelationNameCommentsCABGBrotherCoronary artery diseaseBrother RelationNameStatusCommentsBrotherFatherDeceasedMotherDeceased Social History Tobacco UseTypesPacks/DayYears UsedDateSmoking Tobacco: FormerCigarettes Smokeless Tobacco: Never Tobacco Cessation:Counseling Given: Not Answered Alcohol UseStandard Drinks/WeekCommentsNot Currently0 (1 standard drink = 0.6 oz pure alcohol)OR Safety & EnvironmentAnswerDate RecordedFear of Current or Ex-PartnerNot on file04/08/2023Emotionally AbusedNot on file04/08/2023hysically AbusedNot on file04/08/2023Sexually AbusedNot on file04/08/2023hysically or Sexually AbusedNot on file04/08/2023Sex and Gender InformationValueDate Recorded Sex Assigned at YknlfViut77/24/2025 6:33 PM EDTLegal UvhEukd7308/13/2021 9:43 PM EDTGender XndxvxttLhyi95/24/2025 6:33 PM EDTSexual OrientationHeterosexual or Thqthxrt41/24/2025 6:33 PM EDT Last Filed Vital Signs Vital SignReadingTime TakenCommentsBlood Otnlpyng93/5801/25/2025 10:33 AM EST Ctall166801/25/2025 10:33 AM ESTTemperature--Respiratory Rate--Oxygen Saturation 97%01/25/2025 10:33 AM ESTInhaled Oxygen Concentration--Utkikx11.4 kg (153 lb) 01/25/2025 10:33 AM HKGYgcrqv513.2 cm (5' 7 )01/25/2025 10:33 AM ESTBody Mass Index23.9601/25/2025 10:33 AM EST Plan of Treatment DateTypeDepartmentCare Team (Latest Contact Info)Vngttndtudf82/06/2026 10:30 AM ESTHospital Encounter [facility] Heart and Vascular Center Vascular Lab [address] [address] Thania Cabral MD [address] [place] [address] Pre-op gpgwfgyjwf66/06/2026 10:30 AM EST - 02/20/2025 11:30 AM ESTSurgery [facility] Heart and Vascular Center Vascular Lab [address] [place] [phone] Thania Cabral MD [address] [place] [address] Coronary angiographyHealth MaintenanceDue DateLast DoneCommentsDiabetes: Hemoglobin A1C1946Medicare Annual Wellness (AWV)1946Diabetes: Retinopathy Kkfirshcz89/01/1957Depression Kuupgyvyo60/01/1959Diabetes: Urine Protein Jmftsddhs16/01/1966Fall Risk Iijtskfle65/01/2012COVID-19 Vaccine ( season)6102/27/2024, 12/14/2023, 12/29/2022, Additional history existsAdult Jhxyltp64/Zoster PmturztyNscnaqsdr38/25/2022, 10/30/2020neumococcal Vaccine: 50+ OdiivGqmxgdvbz97/04/2025, 02/12/2016, 11/06/2014, Additional history existsInfluenza AwoneexFkmrwmvmk90/12/2025, 11/11/2023, 11/12/2022, Additional history existsHIB VaccinesAged OutNo [...] Procedures Procedure NamePriorityDate/TimeAssociated DiagnosisCommentsCT TRANSFER OF OUTSIDE QJTNOJwhsixo43/12/2025 12:00 AM EST from Last 3 Months Results * CT transfer of outside films (12/27/2024 12:00 AM EST)Specimen (Source) Anatomical Location / LateralityCollection Method / VolumeCollection Time Received Time Narrative IMAGING - 12/27/2024 2:50 PM EST This order has been auto-finalized and does not contain a result. Authorizing ProviderResult TypeResult StatusMunier Michael MDIMG CT PROCEDURES Final ResultPerforming OrganizationAddressCity/State/ZIP CodePhone Number IMAGING from Last 3 Months Insurance Care Teams Team MemberRelationshipSpecialtyStart DateEnd Date Millicent Crowder NP [address] [place] [address] PCP - GeneralFamily Cvynrlhl77/11/25
--- OUTSIDE RECORDS SUMMARY | 2025-02-02 10:35 | XMS_ITS | Encounter Summary ---
Author Organization [facility] Address [address] [place] [address] Care Team Providers Care Passenger Elevator Operator Name Role Phone Millicent Crowder ASSISTANT PROFESSOR OF DRAMA Primary Care Provider [phone] Reason for Visit * ReasonOnset DateCommentssurgery rprubqpdvt02/11/2025 Encounter Details DateTypeDepartmentCare Team (Latest Contact Info)Gygoncgiljs96/11/2025Telephone [facility] Center Vascular and Endovascular Surgery [address] [place] [phone] Eveline Bowens, LORIN surgery scheduling Social History Tobacco UseTypesPacks/DayYears UsedDateSmoking Tobacco: FormerCigarettes Smokeless Tobacco: NeverAlcohol UseStandard Drinks/WeekCommentsNot Currently0 (1 standard drink = 0.6 oz pure alcohol)UT Safety & EnvironmentAnswerDate Recorded Fear of Current or Ex-PartnerNot on file04/08/2023Emotionally AbusedNot on file 4Physically AbusedNot on file04/08/2023Sexually AbusedNot on file 4Physically or Sexually AbusedNot on file04/08/2023Sex and Gender InformationValueDate RecordedSex Assigned at CtgkqDktw12/24/2025 6:33 PM EDT Legal EyeDzca8008/13/2021 9:43 PM EDTGender XmjcypkwXecg64/24/2025 6:33 PM EDT Sexual OrientationHeterosexual or Igflogru12/24/2025 6:33 PM EDTdocumented as of this encounter Miscellaneous Notes * Telephone Encounter - Eveline LORIN Bowens - 01/25/2025 9:40 AM EST LVM for patient to call the office to schedule documented in this encounter Plan of Treatment DateTypeDepartmentCare Team (Latest Contact Info)Pyedqcdrvre53/06/2026 10:30 AM ESTHospital Encounter [facility] [place] [facility] [address] [place] [address] Thania Cabral MD [address] [place] [address] Pre-op wgxfhzhhat52/06/2026 10:30 AM EST - 02/20/2025 11:30 AM ESTSurgery [facility] [address] [place] [address] Thania Cabral MD [address] [place] [phone] Coronary angiographydocumented as of this encounter Visit Diagnoses Not on filedocumented in this encounter Care Teams Team MemberRelationshipSpecialtyStart DateEnd Date Millicent Crodwer NP [address] [facility] [place] [address] PCP - GeneralFamily Vdrbkkkf45/11/25documented as of this encounter
[2025-02-02 11:08] LABS: Alanine Aminotransferase 12 U/L (16-63); Albumin Globulin Ratio 1.0; Albumin Level 3.4 g/dL (3.4-5.0); Alkaline Phosphatase 92 U/L (46-116); Anion Gap 8.0; Aspartate Amino Transferase 10 U/L (15-37); Blood Urea Nitrogen 10.0 mg/dL (7.0-18.0); Calcium 8.5 mg/dL (8.5-10.1); Carbon Dioxide 28.0 mmol/L (21.0-32.0); Chloride 108 mmol/L (98-107); Estimated GFR (African America 56 (>=60 mL/min/1.73m^2); Estimated GFR (Non-African Ame 46 (>=60 mL/min/1.73m^2); Globulin 3.5 g/dL; Glucose 162 mg/dL (74-106); Potassium 4.0 mmol/L (3.5-5.1); Sodium 140 mmol/L (136-145); Total Protein 6.9 g/dL (6.4-8.2)
== END 2025-02-02 10:30 | disposition home or self-care (01) ==
PROVIDERS: PCP Student in an Organized Health Care Education/Training Program; Visit Provider Student in an Organized Health Care Education/Training Program
DX: N17.9 Acute kidney failure, unspecified (principal); I95.9 Hypotension, unspecified; R53.1 Weakness
CPT/HCPCS: 36415; 80053

== ENCOUNTER 2025-02-14 10:24 | Outpatient (OUT) | payer MEDICARE, SELFPAY ==
--- OUTSIDE RECORDS SUMMARY | 2025-02-14 10:32 | XMS_ITS | Clinical Summary ---
Author Organization [facility] Address [address], [address] [place] [address] Care Team Providers Care Family Specialist Name Role Phone Unavailable Primary Care Provider Unavailabl e Allergies Active AllergyReactionsCriticalityNoted XrbqFndbsvrpCiaet91/01/2000 Vicryl Sutures Medications MedicationSigDispense QuantityRefillsLast FilledStart DateEnd [...] tablet Daily5Active tamsulosin (FLOMAX) 0.4 MG capsule daily5Active furosemide (LASIX) 40 MG tablet Take 1 tablet by mouth daily5Active ipratropium 0.5 mg-albuterol 2.5 mg (DUONEB) 0.5-2.5 (3) MG/3ML SOLN nebulizer solution Inhale 3 mLs into the lungs every 4 hours as needed for Shortness of Breath Active vitamin D (VITAMIN D3) 50 MCG (2000 UT) CAPS capsule Take 1 capsule by mouth dailyActive Active Problems ProblemNoted DateDiagnosed DateMalignant neoplasm of lower third of esophagus 01/15/2025 Encounters DateTypeDepartmentCare KdhxMnrhkumiybi26/01/2025 2:00 PM ESTOffice Visit [facility] [address] [place] [address] [place], [place] [id number] Ronnie Hernandez MD Malignant neoplasm of lower third of esophagus (HCC) (Primary Dx)from Last 3 Months Social History Tobacco UseTypesPacks/DayYears UsedDateSmoking Tobacco: FormerCigarettes Smokeless Tobacco: FormerSex and Gender InformationValueDate RecordedSex Assigned at BgoqoYoge04/24/2025 12:05 PM ESTLegal ZotXlpr1703/27/2012 3:17 PM EST Gender IltttaayDoqk55/24/2025 12:05 PM ESTSexual UrdqlxlxrdvNcwyujjc49/24/2025 12:05 PM EST Last Filed Vital Signs Vital SignReadingTime TakenCommentsBlood Pressure--Zgvhv468701/15/2025 1:56 PM EST Fvjceftndlj53.4 ??C (97.6 ??F)01/15/2025 1:56 PM ESTRespiratory Rate--Oxygen Sizdjaizku93%01/15/2025 1:56 PM ESTInhaled Oxygen Concentration--Wcuedq76 kg (150 lb)01/15/2025 1:56 PM NYCLebwmm374.9 cm (5' 6.5 )01/15/2025 1:56 PM ESTBody Mass Index23.8501/15/2025 1:56 PM EST Plan of Treatment Health MaintenanceDue DateLast MrrxPgawvnxgFbuciq92/01/1957Depression Screen 1958Hepatitis C qakokx6007/16/1964Annual Wellness Visit (Medicare)01/08/2025 DTaP/Tdap/Td vaccine (3 - Td or Tdap), 04/27/2021hingles ytwityyHamecwtgn26/25/2022, 10/30/2020espiratory Syncytial Virus (RSV) or age 60 yrs+Kfylakjcn56/07/2025Pneumococcal 50+ years VaccineCompleted 10/19/2024, 02/12/2016, 11/06/2014, Additional history existsCOVID-19 Vaccine Sqgpjtaba66/12/2025, 12/14/2023, 12/29/2022, Additional history existsFlu svkhmhiZldhsrpya58/12/2025, 11/11/2023, 11/12/2022, Additional history exists Hepatitis A [...]
--- OUTSIDE RECORDS SUMMARY | 2025-02-14 10:32 | XMS_ITS | Clinical Summary ---
Author Organization [facility] Address [address] [place] [address] Care Team Providers Care Photo Studio Assistant Name Role Phone Unavailable Primary Care Provider Unavailabl e Encounters DateTypeDepartmentCare UrziUfiyshgbemo01/21/2025External Result Encounter [facility] External Department Unsolicited Slick [...] file Plan of Treatment Health MaintenanceDue DateLast DoneCommentsPneumococcal Vaccine: 65+ Years Nakcnnsnu41/04/2025, 02/12/2016, 11/06/2014, Additional history existsInfluenza ClrgvuwPikrwpnwg92/12/2025, 11/11/2023, 11/12/2022, Additional history exists Procedures Procedure NamePriorityDate/TimeAssociated DiagnosisCommentsCT ABDOMEN PELVIS W IV FIMAUYBX40/ 3:40 PM EST SMNYENMXKJEVRN67/21/2025 1:50 PM EST UREA NITROGEN, BODY FOSPAYUUM83/21/2025 1:50 PM EST SCAN AND LKHZiuqexs73/17/2025 12:32 PM EST IRON AND TOTAL IRON BINDING WVCJNQLZEcxljrj85/17/2025 12:32 PM EST VIT. B12/FOLATE QVAVTSKWgqnboa20/17/2025 12:32 PM EST KPDCNHVJNtiuaaa07/17/2025 12:32 PM EST CARCINOEMBRYONIC WTXNWZYNubweva30/17/2025 12:32 PM EST COMPREHENSIVE METABOLIC LIRJZMjkaxfv71/17/2025 12:32 PM EST from Last 3 Months [...] ? Impression dictated by: Mukesh Pisano Jr., D.O. ??01/05/2025 3:45 PM ? Dictation Location: RADIO-PC-22 ? Transcribed By: ? PWS ?01/05/25 1545 ? Dictated By: ?Mukesh Pisano Jr, DO ?01/05/ 1540 ? Signed By: <Electronically signed by Mukesh Pisano Jr, DO in OV> ?01/05/ 1545 Narrative 01/05/2025 3:48 PM EST [facility] ?[facility] [place] ?[address] ? [place] [address] ? CT Scan Report ? Signed ? Patient: Renita,Waldo L ?MR#: [id number] ?? [id number] ? : 1945 ?Acct:[id number] ? Age/Sex: 79 / M ?ADM Date: 01/05/25 ? Loc: XT ?Room: ?Type: REG RCR ?? Attending Dr: Slick Lynne II DO ?? Copies to: Slick Lynne II, DO ? Ordering Provider: Slick Lynne II, DO ?? Date of Service: 01/05/25 ?? 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 ([id number]) CT/CT abdomen pelvis w con: C16.0 - [...] Note Mukesh Pisano Jr., DO - 01/05/2025 [facility] Main [place] [address] [place] [address] CT Scan Report Signed Patient: Waldo Maravilla LMR#: [id number] : 7Acct:[id number] Age/Sex: 79 / MADM Date: 01/05/25 Loc: XT Room:Type: [facility] RCR Attending Dr: Slick Lynne II DO Copies to: Slick Lynne II, DO Ordering Provider: Slick Lynne II, DO Date of Service: 01/05/25 CT/CT chest w con: C16.0 - Malignant neoplasmof cardia ([id number]) CT/CT abdomen pelvis w con: C16.0 - [...] Jr., D.O. 01/05/2025 3:45 PM Dictation Location: [place] [address] Transcribed By: [facility] 01/05/25 1541 Dictated By: Mukesh Pisano Jr, DO 01/05/25 1540 Signed By: <Electronically signed by Mukesh Pisano Jr DO inOV> 01/05/25 1546 Authorizing ProviderResult TypeResult StatusSlick Lynne [facility] CT PROCEDURESFinal Result * Urea nitrogen, body fluid (01/05/2025 1:50 PM EST)ComponentValueRef RangeTest MethodAnalysis TimePerformed AtPathologist AwqwqsctjEOV23 - 25 mg/dL01/05/2025 2:17 PM [facility] CtrSpecimen (Source)Anatomical Location / LateralityCollection Method / VolumeCollection TimeReceived TimeOther Topography unknown / Opgnvko8401/05/2025 1:50 PM EST01/05/2025 2:02 PM EST Narrative [facility] - 01/05/2025 2:17 PM EST STAT FOR CT Authorizing ProviderResult TypeResult StatusTimriana Lynne DOLAB BODY FLUIDS AND STOOLS ORDERABLESFinal ResultPerforming OrganizationAddress City/State/ZIP CodePhone Number [address] [address], [facility] [address] [place] [address] * (ABNORMAL) Creatinine (01/05/2025 1:50 PM EST)ComponentValueRef RangeTest MethodAnalysis TimePerformed AtPathologist SignatureCREATININE1.36(H)0.70 - 1.30 mg/dL01/05/2025 2:17 PM [facility] CtrESTIMATED GFR 53.8742301/05/2025 2:17 PM [facility] CtrCREATININE CLR CALC WKNPKSVQ21.40103/07/2024 2:17 PM [facility] CtrSpecimen (Source)Anatomical Location / LateralityCollection Method / VolumeCollection TimeReceived TimeOtherTopography unknown / Eundjuw7701/05/2025 1:50 PM EST 01/05/2025 2:02 PM EST Narrative [facility] - 01/05/2025 2:17 PM EST STAT FOR CT Authorizing ProviderResult TypeResult StatusTimriana Lynne DOLAB BLOOD ORDERABLESFinal ResultPerforming OrganizationAddressSelect [facility]/State/ZIP CodePhone Number [facility] [address] [place] [address], [facility] [address] [place] [address] * (ABNORMAL) SCAN AND CBC (01/01/2025 12:32 PM EST)ComponentValueRef RangeTest MethodAnalysis TimePerformed AtPathologist SignatureWBC7.84.1 - 10.5 [CFU]/mL 01/01/2025 1:51 PM [facility] CtrUNCORRECTED WHITE BLOOD COUNT7.84.1 - 10.5 10*3/uL01/01/2025 1:51 PM [facility] Ctr RBC4.593.90 - 5.60 10*6/uL01/01/2025 1:51 PM [facility] Ctr CWYYOOSFGH12.9(L)13.0 - 17.0 g/dL01/01/2025 1:51 PM [facility] JzxHGPFLSUHWF14.4(L)38.8 - 50.0 %01/01/2025 1:51 PM [facility] VegDCP14.7(L)83.5 - 101 fL01/01/2025 1:51 PM [facility] HdiBAT01.8(L)27.5 - 35.2 pg01/01/2025 1:51 PM [facility] OuhCMBQ65.832.5 - 35.6 g/dL01/01/2025 1:51 PM [facility] CtrRED CELL DISTRIBUTION WIDTH, RDW25.1(H)12.0 - 14.8 % 01/01/2025 1:51 PM [facility] CtrPLATELET QTBNC974201 - 450 10*3/uL01/01/2025 1:51 PM [facility] CtrMEAN PLATELET VOLUME, MPV10.06.6 - 10.1 fL01/01/2025 1:51 PM [facility] CtrNEUTROPHILS, %68.7. %01/01/2025 2:55 PM [facility] Ctr LYMPHOCYTES, %17.1. %01/01/2025 2:55 PM [facility] Ctr MONOCYTE/MACROPHAGE, %11.4. %01/01/2025 2:55 PM [facility] CtrEOSINOPHILS, %2.1. %01/01/2025 2:55 PM [facility] Ctr BASOPHILS, %0.7. %01/01/2025 2:55 PM [facility] CtrNRBC0.00 - 0.5 /100{WBC}01/01/2025 2:55 PM [facility] Ctr NEUTROPHILS5.41.8 - 7.7 10*3/uL01/01/2025 2:55 PM [facility] CtrLYMPHOCYTES1.31.00 - 4.8 10*3/uL01/01/2025 2:55 PM [facility] CtrMONOCYTES0.9(H)0.0 - 0.8 10*3/uL01/01/2025 2:55 PM [facility] CtrEOSINOPHILS0.20.0 - 0.45 10*3/uL01/01/2025 2:55 PM [facility] CtrBASOPHILS0.10.0 - 0.2 10*3/uL01/01/2025 2:55 PM [facility] WlbSNTQLDETWJAAOGrfkxn06/17/2025 2:55 PM [facility] XecXCFBYZHJQOTMCZamjkz69/17/2025 2:55 PM [facility] HmvKKIAETEBKTRYRchiukwu84/17/2025 2:55 PM [facility] XraISVIMNVDHAKZUknrzsjf36/17/2025 2:55 PM [facility] CtrTEAR DROP NDSAZJbtoow10/17/2025 2:55 PM [facility] NluCATTBDLOGVKdtair30/17/2025 2:55 PM [facility] CtrPLATELET YSUJJDPEYkbxboXxzdfw71/17/2025 2:55 PM [facility] CtrPLATELET ECTYIRWCQEWjuoohNpvvdx75/17/2025 2:55 PM [facility] CtrSpecimen (Source)Anatomical Location / LateralityCollection Method / VolumeCollection TimeReceived TimeBlood (Blood) 01/01/2025 12:32 PM EST01/01/2025 12:32 PM EST Narrative Authorizing ProviderResult TypeResult StatusSlick QUINNAB BLOOD ORDERABLESFinal ResultPerforming OrganizationAddressCity/State/ZIP CodePhone Number [facility] [address] [place] [address], [facility] [address] [place] [address] * CARCINOEMBRYONIC ANTIGEN (01/01/2025 12:32 PM EST)ComponentValueRef RangeTest MethodAnalysis TimePerformed AtPathologist SignatureCARCINOEMBRYONIC ANTIGEN 2.90.0 - 3.0 ng/mL01/01/2025 2:25 PM [facility] CtrComment: Serial tumor marker results determined by assays using different manufacturers or methods may not be comparable. [facility] terra cotta setter and method: GARTH UNICEL DXI, ??2 SITE IMMUNOENZYMATIC ???SANDWICH?? ASSAY. Specimen (Source)Anatomical Location / LateralityCollection Method / Volume Collection TimeReceived TimeOtherTopography unknown / Pfymxts0201/01/2025 12:32 PM EST01/01/2025 12:32 PM EST Narrative Authorizing ProviderResult TypeResult StatusSlick Lynne [facility] BLOOD ORDERABLESFinal ResultPerforming OrganizationAddressty/State/ZIP CodePhone Number [facility] [address] [place] [address], [facility] [address] [place] [address] * (ABNORMAL) VIT. B12/FOLATE PROFILE (01/01/2025 12:32 PM EST)ComponentValueRef RangeTest MethodAnalysis TimePerformed AtPathologist SignatureVITAMIN B121,033 (H)180 - 914 pg/mL01/01/2025 2:38 PM [facility] CtrFOLATE 29.0>5.9 ng/mL01/01/2025 3:20 PM [facility] CtrComment: Folate reference range: >5.9 ng/ml The WHO technical consultation on folate and vitamin b12 deficiencies has determined that folate concentrations less than 4 ng/ml are considered deficient. Specimen (Source)Anatomical Location / LateralityCollection Method / Volume Collection TimeReceived TimeOtherTopography unknown / Cpivola1601/01/2025 12:32 PM EST01/01/2025 12:32 PM EST Narrative [facility] - 01/01/2025 3:20 PM EST FE TIBC ADDED ON TO PREVIOUS REQUISITION SOPHIA MISSED ORDER WHEN TUBE WAS DRAWN, ADDED ON PER CANCER CENTER Authorizing ProviderResult TypeResult StatusSlick QUINN BLOOD ORDERABLESFinal ResultPerforming OrganizationAddressty/[facility] CodePhone Number [facility] [address] [place] [address], [facility] [address] [place] [address] * (ABNORMAL) Iron and TIBC (01/01/2025 12:32 PM EST)ComponentValueRef RangeTest MethodAnalysis TimePerformed AtPathologist MbhbsjpnyOYAL34(L)50 - 212 ug/dL 01/01/2025 2:41 PM [facility] CtrTOTAL IRON BINDING IZFLFJGH364838 - 450 ug/dL01/01/2025 2:41 PM [facility] Ctr % IRON SATURATION6.3(L)20 - 50 %01/01/2025 2:41 PM [facility] AjyWJISZRAJZJJ697898 - 362 mg/dL01/01/2025 2:41 PM [facility] CtrSpecimen (Source)Anatomical Location / Laterality Collection Method / VolumeCollection TimeReceived TimeOtherTopography unknown / Gwqqhdx0401/01/2025 12:32 PM EST01/01/2025 12:32 PM EST [facility] - 01/01/2025 3:20 PM EST FE TIBC ADDED ON TO PREVIOUS REQUISITION SOPHIA MISSED ORDER WHEN TUBE WAS DRAWN, ADDED ON PER CANCER CENTER Authorizing ProviderResult TypeResult StatusSlick Lynne DOLAB BLOOD ORDERABLESFinal ResultPerforming OrganizationAddressCity/State/ZIP CodePhone Number [address] [address], [facility] [address] [place] [address] * (ABNORMAL) Ferritin (01/01/2025 12:32 PM EST)ComponentValueRef RangeTest MethodAnalysis TimePerformed AtPathologist QlziluaalSWTNUGYD52.8(L)23.9 - 336.2 ng/mL01/01/2025 2:34 PM [facility] CtrSpecimen (Source)Anatomical Location / LateralityCollection Method / VolumeCollection TimeReceived TimeOtherTopography unknown / Aeudkbs4501/01/2025 12:32 PM EST 01/01/2025 12:32 PM EST Narrative [facility] - 01/01/2025 3:20 PM EST FE TIBC ADDED ON TO PREVIOUS REQUISITION SOPHIA MISSED ORDER WHEN TUBE WAS DRAWN, ADDED ON PER CANCER CENTER Authorizing ProviderResult TypeResult StatusSlick Lynne DOLAB BLOOD ORDERABLESFinal ResultPerforming OrganizationAddressCity/State/ZIP CodePhone Number [facility] [address] [place] [address], [facility] [address] [place] [address] * (ABNORMAL) Comprehensive metabolic panel (01/01/2025 12:32 PM EST)Component ValueRef RangeTest MethodAnalysis TimePerformed AtPathologist SignatureGlucose 7670 - 100 mg/dL01/01/2025 2:12 PM [facility] CtrComment: Random Glucose Reference Range is dependent on time and content of last meal. Glucose of more than 200 mg/dL in a nonstressed, ambulatory subject supports the diagnosis of Diabetes Mellitus. ADA recommended reference range SYQ974 - 25 mg/dL01/01/2025 2:12 PM [facility] CtrCREATININE 1.32(H)0.70 - 1.30 mg/dL01/01/2025 2:12 PM [facility] Ctr ESTIMATED GFR55.4416001/01/2025 2:12 PM [facility] LhtJrtqtd540 136 - 145 mmol/L103/03/2024 2:12 PM [facility] CtrPotassium, Bld4.53.5 - 5.1 mmol/L103/03/2024 2:12 PM [facility] Ctr Kyopexfj26411 - 107 mmol/L103/03/2024 2:12 PM [facility] Ctr Carbon Ygzhmwt70.721.0 - 31.0 mmol/L103/03/2024 2:12 PM [facility] CtrAnion Gap12.86.0 - 15.011 2:12 PM [facility] CtrCalcium9.28.6 - 10.3 mg/dL01/01/2025 2:12 PM [facility] CtrTOTAL PROTEIN7.06.4 - 8.9 g/dL01/01/2025 2:12 PM [facility] CtrALBUMIN LEVEL4.03.5 - 5.7 g/dL01/01/2025 2:12 PM [facility] CtrGLOBULIN3.0g/dL01/01/2025 2:12 PM [facility] CtrALBUMIN/GLOBULIN RATIO1.311 2:12 PM [facility] CtrBILIRUBIN,TOTAL0.40.3 - 1.0 mg/dL01/01/2025 2:12 PM [facility] CtrASPARTATE AMINO CEWCEBCGVUN4924 - 39 U/L103/03/2024 2:12 PM [facility] CtrALANINE DODLPIMQEJETACCW940 - 52 U/L 01/01/2025 2:12 PM [facility] CtrALKALINE RPXNONXYUNK2375 - 104 U/L103/03/2024 2:12 PM [facility] CtrCREATININE CLR CALC XKGGRPED81.6201/01/2025 2:12 PM [facility] CtrSpecimen (Source)Anatomical Location / LateralityCollection Method / VolumeCollection TimeReceived TimeOtherTopography unknown / Vorscro7601/01/2025 12:32 PM EST 01/01/2025 12:32 PM EST Narrative [facility] - 01/01/2025 3:20 PM EST FE TIBC ADDED ON TO PREVIOUS REQUISITION SOPHIA MISSED ORDER WHEN TUBE WAS DRAWN, ADDED ON PER CANCER CENTER Authorizing ProviderResult TypeResult StatusSlick Lynne DOLAB BLOOD ORDERABLESFinal ResultPerforming OrganizationAddressCity/State/ZIP CodePhone Number [facility] [address] [place] [address], [facility] [address] [place] [address] from Last 3 Months Insurance
--- OUTSIDE RECORDS SUMMARY | 2025-02-14 10:32 | XMS_ITS | Clinical Summary ---
Author Organization [facility] Address [address] [facility] [place] [address] Care Team Providers Care Hide Spreader Name Role Phone Unavailable Primary Care Provider Unavailabl e Source Comments The following information is NOT included in Care Everywhere downloads:Psychiatric notes, ECG results, Cardiac Rehab notes, Pulmonary Function notes, data from SmartForms (includes but not limited toPregnancy data,audiograms, eye exams, pre-surgical evaluation notes, well-child exam data).[facility] Immunizations ImmunizationAdministration DatesNext DueInfluenza, intradermal, trivalent, preservative free (IIV3) (ESQ=967)10/16/2014Moderna Monovalent (12+ yrs) COVID- 19 vaccine, mRNA, spike protein, LNP, PF, 100 mcg/0.5 mL (WAK=048)05/08/2020, 04/11/2020 Social History Tobacco UseTypesPacks/DayYears UsedDateSmoking Tobacco: Never AssessedSex and Gender InformationValueDate RecordedSex Assigned at BirthNot on fileLegal Sex Male09/27/2017 4:29 PM EDTGender IdentityNot on fileSexual OrientationNot on file Plan of Treatment Health MaintenanceDue DateLast DoneCommentsHepatitis C Ldjpglmt90/01/1965Tdap Pupbckr5607/16/1964Hepatitis A (HAV) Vaccine (optional start 19+ years)1965 Tetanus (Td or Tdap) Jxxwcai3207/16/1965Pneumococcal Vaccine(s) (50+ yrs) (1 of 1 - PCV)1996Shingles (RZV) Vaccine (1 of 2)1996Annual Wellness Visit (G0438)05/16/2006Hepatitis B (HBV) Vaccine (optional start 60+ years)2006 RSV vaccine (adult) (1 - 1-dose 75+ series)2COVID-19 Vaccine (3 - 2024- season)503/, 04/11/2020Influenza Vaccine (#1)2024 10/16/2014 Insurance
--- OUTSIDE RECORDS SUMMARY | 2025-02-14 10:32 | XMS_ITS | Encounter Summary ---
Author Organization [facility] Address [address] [place] [address] Care Team Providers Care Tray Line Supervisor Name Role Phone Millicent Crowder Edwin MENDOZA Unavailable [phone] Thania Cabral MD Unavailable [phone] Source Comments In the event this information is protected by the Federal Confidentiality of Alcohol and Drug AbusePatient Records regulations: The Federal rules restrict any use of the information to criminally investigate or prosecute any alcohol or drug abuse patient.[facility] Reason for Referral * Outpatient Procedure (Urgent) - Pending ReviewSpecialtyDiagnoses / Procedures Referred By ContactReferred To [facility]RES[facility]AT[facility] Diagnoses Malignant neoplasm of lower third of esophagus (HCC) Procedures SIX MINUTE WALK CARDIOPULMONARY EXERCISE STRESS Charline Conn MD, PhD [address] [place] [address] [address] [place] [address] Phone: tel: fax: [facility] [place] [address] [place] [address] Referral IDStatusReasonStart DateExpiration DateVisits RequestedVisits [id number] Review Auto-Generated Referral / * Outpatient Procedure (Urgent) - Pending ReviewSpecialtyDiagnoses / Procedures Referred By ContactReferred To [facility] Diagnoses Malignant neoplasm of lower third of esophagus (HCC) Procedures LUNG DIFFUSION CAPACITY (DLCO) DIFFUSING CAPACITY Charline Conn MD, PhD [address] [address] Phone: tel: fax: [address] [address] Referral IDStatusReChilton Medical Centerart DateExpiration DateVisits RequestedVisits [id number] Review Auto-Generated Referral * Outpatient Procedure (Urgent) - Pending ReviewSpecialtyDiagnoses / Procedures Referred By ContactReferred To [facility] Diagnoses Malignant neoplasm of lower third of esophagus (HCC) Procedures SPIROMETRY BASELINE ONLY SPMTRY W/VC EXPIRATORY IDA W/WO MXML VOL VNTJ Charline Conn MD, PhD [address] [address] Phone: tel: fax: [address] [address] Referral IDStatusReasonGarden City DateExpiration DateVisits RequestedVisits [id number] Review Auto-Generated Referral Reason for Visit * ReasonCommentsReferral Information Encounter Details DateTypeDepartmentCare Team (Latest Contact Info)Tuzxffhvltu28/24/2025Telephone Thoracic Clinic [address] [phone] Charline Conn MD, PhD [address] [address] Referral Information (/) Social History Tobacco UseTypesPacks/DayYears UsedDateSmoking Tobacco: Never AssessedSex and Gender InformationValueDate RecordedSex Assigned at BirthNot on fileLegal Sex Male01/17/2012 9:35 AM ESTGender IdentityNot on fileSexual OrientationNot on filedocumented as of this encounter Miscellaneous Notes * Telephone Encounter - Millicent Antoine, RN - 02/12/2025 3:37 PM EST Images from the original note were not included. Thoracic Surgery Consultation - review of records for appointment scheduling Patient is being referred to Dr Charline Conn by for Esophageal Cancer GE junction ncidental finding of a fungating mass right at the GE junction. Biopsy was positive for adenocarcinoma. Endoscopic ultrasound showed a T2N0 lesion Outside hospital records scanned / in [facility] / Care Everywhere Pathology: Procedures: Imaging PET/CT: 02/02/2025 CT (abd, pelvis): 01/05/[address] evidence of metastatic disease. Bilateral pleural calcifications suggestive of prior asbestos exposure. Cholelithiasis. UGI: EUS 12/29/2024 Endoscopic Findings Mass measuring 30 mm x 25 mm was visualized in the GE junction and cardia, observed with the scope at 36 cm from the GE junction. The mass was visualized, covering one third of the circumference. Medium sliding hiatal hernia (type I hiatal hernia) without Dandre lesions present, confirmed by retroflexion. Mass epicenter located inside the hiatal hernia, start at GE junction extends into cardia. The cricopharynx, upper third of the esophagus, middle third of the esophagus and lower third of the esophagus appeared normal. The fundus of the stomach, body of the stomach and antrum appeared normal. The duodenal bulb and 2nd part of the duodenum appeared normal. Endosonographic Findings Mass measuring 30 mm x 25 mm was visualized in the GE junction and cardia, observed with the scope at 36 cm from the GE junction. The irregular, hypoechoic and solid T2 mass was visualized, originating in the mucosa and extending to the muscularis propria. The parenchyma of the liver appeared normal. The parenchyma was visualized in the left lobe of the liver. The parenchyma was homogeneous. The hepatic ducts appeared normal. The left kidney, spleen and left adrenal appeared normal. Recommendation Follow up with oncology as outpatient Follow up with referring physician Cardiopulmonary Testing PFT's/Six: needed Cardiac: need card clearance if surgery ensues echo 08/03/24 1. LV is mildly enlarged. LV systolic function is normal with an ejection fraction of 56.4 %. The left ventricle has normal regional wall motion. There is no left ventricular hypertrophy. 2. Mild aortic regurgitation is present. 3. Aortic sclerosis. 4. Left atrial size is mildly dilated. 5. Normal right ventricle size, wall thickness and systolic function. 6. Pulmonary pressures could not be estimated. Normal IVC. Diastolic function not evaluated. Office Notes/Consults kelin ONC 01/15/2025 arleen DONOHUE Early stage GE junction adenocarcinoma. Have gone [...] neoplasm of lower third of esophagus (HCC) 01/25/25 CARDS [facility] Assessment: Coronary artery disease; history of coronary [...] in 6 months Thania Cabral MD, MPH, [facility], [facility], [facility] History of: No family history on file. No past medical history on file. No past surgical history on file. Social History[1] Request consult with dr rosy heath p/d/s Millicent Antoine RN [1] * Telephone Encounter - Vanessa Mills - 02/07/2025 11:03 AM EST Received requested imaging from [facility], uploaded to [facility]. Waiting for requested imaging from [facility] Nargis Monge [phone] & [facility] ph # [phone] fax # [phone]. Outside records book markedin [facility]. Vanessa Mills * Telephone Encounter - Vanessa Mills - 02/07/2025 11:00 AM EST Images from the original note were not included. LOCAL PATIENT Received medical records from the office of Darinel Bryant T[facility] pt is being referred to Charline Conn M.D., Ph. D. for Malignant Neoplasm of Cardia Pt is to receive a call from NP after brief review with surgeon to go over any additional testing and/or consults and then a call from our scheduling office for scheduling. Please call pt at [phone] (home) Pt's VU Securityhart is inactive. Ok to communicate to pt via MyChart No. Authorization: Insurance and referral with authorization scanned into epic: Yes Medical Records: Internal records in Epic No. OSH records scanned No Care Everywhere - queried yes, downloaded Yes Linked Outside Organizations (list): Radiology Imaging: Requested: Yes Received: Yes/some [facility] Waiting for Name [facility]; ; & [facility] Approx Date: 02-07-25 Pathology Slides: Requested: No Received: No Any questions regarding authorizations, testing or records, please call [phone] (Armond Davidson [id number] or Nargis Monge [id number]) Additional providers added to Care Teams: Yes Additional Notes/Comments: no Enct routed to: [facility] Vanessa Mills documented in this encounter Plan of Treatment DateTypeDepartmentCare Team (Latest Contact Info)Nfhtfrafnlc05/20/2026 9:30 AM ESTOffice Visit Pulmonary Lab [address] [address] Malignant neoplasm of lower third of esophagus (HCC)03/06/2025 10:00 AM EST Procedure Pulmonary Lab [address] [address] Malignant neoplasm of lower third of esophagus (HCC)03/06/2025 11:30 AM EST Office Visit Thoracic Surgery [address] [place] [address] Charline Conn MD, PhD [address] [facility] [address] [place] [address] Malignant neoplasm of lower third of esophagusNameTypePriorityAssociated DiagnosesOrder ScheduleSPIROMETRY BASELINE ONLYPFTRoutine Malignant neoplasm of lower third of esophagus (HCC) 1 Occurrences starting 02/13/2025 until 03/15/2026LUNG DIFFUSION CAPACITY (DLCO) PFTRoutine Malignant neoplasm of lower third of esophagus (HCC) 1 Occurrences starting 02/13/2025 until 03/15/2026SIX MINUTE WALKPFTRoutine Malignant neoplasm of lower third of esophagus (HCC) 1 Occurrences starting 02/13/2025 until 03/15/2026documented as of this encounter Visit Diagnoses Diagnosis Malignant neoplasm of lower third of esophagus (HCC)- Primary Malignant neoplasm of lower third of esophagus documented in this encounter Care Teams Team MemberRelationshipSpecialtyStart DateEnd Date Millicent Crowder CNP [address] [place] [address] Family Fjphwwgd14/24/25 Thania Cabral MD [address] [place] [phone] Ccbxqygpua88/30/25documented as of this encounter
--- OUTSIDE RECORDS SUMMARY | 2025-02-14 10:32 | XMS_ITS | Clinical Summary ---
Author Organization [facility] Address [address] [place], [place] [phone] Care Team Providers Care Welder Plastic Name Role Phone Millicent Crowder Edwin MENDOZA Unavailable [phone] Thania Cabral MD Unavailable [phone] Allergies No known active allergies Medications MedicationSigDispense [...] ORAL Cap Take by mouth twice daily.Active Encounters DateTypeDepartmentCare AdbdMtqtlwjmzeg77/24/2025Telephone Thoracic Clinic [address] [phone] Charline Conn MD, PhD Referral Information (/)from Last 3 Months Social History Tobacco UseTypesPacks/DayYears UsedDateSmoking Tobacco: Never AssessedSex and Gender InformationValueDate RecordedSex Assigned at BirthNot on fileLegal Sex Male01/17/2012 9:35 AM ESTGender IdentityNot on fileSexual OrientationNot on file Plan of Treatment DateTypeDepartmentCare Team (Latest Contact Info)Kcxprwlscbc35/20/2026 9:30 AM ESTOffice Visit Pulmonary Lab [address] [address] Malignant neoplasm of lower third of esophagus (HCC)03/06/2025 10:00 AM EST Procedure Pulmonary Lab [address] [address] Malignant neoplasm of lower third of esophagus (HCC)03/06/2025 11:30 AM EST Office Visit Thoracic Surgery [address] [place] [address] Charline Conn MD, PhD [address] [address] Malignant neoplasm of lower third of esophagusHealth MaintenanceDue DateLast DoneCommentsAnxiety Rgcuegniq77/01/1965Depression Uowqcqaav95/01/1965Hepatitis C Huvvrncup67/01/1965Advance Directive Gayoifpcxq23/01/2025ovid-19 Vaccine ( season)6102/27/2024, 12/14/2023, 12/29/2022, Additional history existsDiabetes Nsmqjrbtr10, 08/06/2024, 08/06/2024, Additional history existsDTaP,Tdap,Td Vaccine (3 - Td or Tdap), 04/27/2021hingrix PozxifoUrhymugnh92/25/2022, 1RSV VaccineCompleted 06/21/2024Pneumococcal Vaccine: 50+Vspqtoaee98/04/2025, 02/12/2016, 11/06/2014, Additional history existsInfluenza YikhociXsnlmaart32/12/2025, 11/11/2023, 11/12/2022, Additional history exists Procedures Procedure NamePriorityDate/TimeAssociated DiagnosisCommentsEXTERNAL IMAGING 02/01/2025 12:00 AM EST NM OUTSIDE CD DICOM KHELLZ4502/01/2025 CT OUTSIDE CD DICOM SWREFE3801/05/2025 CT OUTSIDE CD DICOM EJCSXJ4301/05/2025 from Last 3 Months Results * NM OUTSIDE CD DICOM IMPORT -NBNR (02/01/2025)Anatomical RegionLaterality ModalityOtherSpecimen (Source)Anatomical Location / LateralityCollection Method / VolumeCollection TimeReceived Time02/01/2025 Narrative 02/07/2025 10:56 PM EST Images were obtained outside of [facility] Procedure Note Provider, [facility] [place] - 02/07/2025 Images were obtained outside of [facility] Authorizing ProviderResult TypeResult StatusCcf ProviderRADIOLOGYFinal Result * EXTERNAL IMAGING (02/01/2025 12:00 AM EST)Anatomical RegionLateralityModality Other Narrative Authorizing ProviderResult TypeResult StatusExternal Provider PA-CRADIOLOGYFinal Result * CT-CT chest w con IMPORT (01/05/2025)Anatomical RegionLateralityModalityOther Specimen (Source)Anatomical Location / LateralityCollection Method / Volume Collection TimeReceived Time01/05/2025 Narrative 02/07/2025 1:55 PM EST Images were obtained outside of [facility] Procedure Note Provider, [facility] [place] - 02/07/2025 Images were obtained outside of [facility] Authorizing ProviderResult TypeResult StatusCcf ProviderRADIOLOGYFinal Result * CT-CT abdomen pelvis w con IMPORT (01/05/2025)Anatomical RegionLaterality ModalityOtherSpecimen (Source)Anatomical Location / LateralityCollection Method / VolumeCollection TimeReceived Time01/05/2025 Narrative 02/07/2025 1:53 PM EST Images were obtained outside of [facility] Procedure Note Provider, [facility] [place] - 02/07/2025 Images were obtained outside of [facility] Authorizing ProviderResult TypeResult StatusCcf ProviderRADIOLOGYFinal Result from Last 3 Months Insurance Care Teams Team MemberRelationshipSpecialtyStart DateEnd Millicent Crowder, VENEER TAPER [address] [place] [address] Family Fadkfckf52/24/25 Thania Cabral MD [address] [place] [address] Wautwajusq81/30/25
--- OUTSIDE RECORDS SUMMARY | 2025-02-14 10:32 | XMS_ITS | Clinical Summary ---
Author Organization [facility] Address [address] [place] [address] Care Team Providers Care Pbx Mechanic Name Role Phone Millicent Crowder REVENUE STAMP CLERK Primary Care Provider [phone] Allergies No known active allergies Medications MedicationSigDispense [...] morning.5Active Active Problems ProblemNoted DateDiagnosed DateCarotid artery scahrugx92/11/2025Pre-op /11/2025BMI 25.0-25.9,adult01/22/2025hronic obstructive pulmonary gikmrea1401/22/2025Heart lbphddh2401/22/2025 Overview (01/22/2025): noted in 10/12/2024 ED Note page 17. added per OP CDI policy. Malignant neoplasm of cardia of etywjyq5901/22/2025Occlusion of carotid artery 01/22/2025 Overview (01/22/2025): noted in 10/12/2024 ED Note page 17. added per OP CDI policy. PVC (premature ventricular contraction)01/22/2025Trigger finger, right middle xeqzdf1601/22/2025Varicose veins of bilateral lower extremities with other huijvdkmdkild51/08/2025Malignant neoplasm of lower third of maeabhyol59/01/2025 Flash pulmonary edema08/03/2024Hypoxic respiratory strsgxo0908/03/2024Dizziness and zhawuuatl73/29/2025Nail disorder, zvkkxfhaiwm30/29/2025bnormal findings on diagnostic imaging of lung03/13/2024 Overview (03/13/2024): Aug 01, 2020 Entered By: MAXINE SALDAÑA Comment: CT 04/2020.Repeat in 07/2020-->findings stable. Repeat 07/2021 Actinic rlqirxptp14/27/2025enign prostatic hyperplasia with urinary obstruction 03/13/2024hronic jjqurajt83/27/2025hronic ischemic heart disease, unspecified 03/13/2024Depressive dtqrqasy52/27/2025Diabetic ocutwndvlt61/27/2025Encounter for screening for malignant neoplasm of skin03/13/20243952Nzlzdoeqdxg53/27/2025 Impacted cerumen, left ear03/13/2024Long term current use of anticoagulant uqzzrtt4903/13/2024Major depressive disorder, recurrent, mild03/13/2024Nicotine dependence, cigarettes, vxnuyksrihlxj94/27/2025Obstructive sleep apnea of adult 03/13/2024Personal history of noncompliance with medical treatment, presenting hazards to gwjdcl3003/13/2024Post-traumatic stress disorder, xblnxrycabo20/27/2025 Pulmonary jedddletuz72/27/2025Sensorineural hearing loss (SNHL) of both ears 03/13/2024Transient ischemic cnaciv6203/13/2024Type 2 diabetes mellitus without xnihqsnirtfwy38/27/2025Vitamin D urmapcizap31/27/2025hronic diastolic congestive heart oizvgvo3403/01/2024Tobacco abuse03/01/20241974Cloeqv96/15/2022-fib 09/29/2021AD (coronary artery disease)09/29/2021Essential hypertension 09/29/20213257Mywvttkvoqgtyd52/15/8594Ejeawfobi64/15/2022Type 1 fptzsrho71/15/2022 Encounters DateTypeDepartmentCare MsjuOmeibossgvz45/11/2025 10:30 AM ESTOffice Visit [facility] [address] [place] [address] Thania Cabral MD Preoperative clearance (Primary Dx); Chronic diastolic heart failure (CMS/HCC); Claudication; Carotid stenosis, asymptomatic, bilateral; Coronary artery disease involving [place] coronary artery of [place] heart without angina pectoris; Primary hypertension; Cardiovascular stress test khjdyrpz08/11/2025Orders Only [facility] [address] [facility] [address] Kylah Doyle MA Pre-op evaluation (Primary Dx); Chronic heart failure with preserved ejection fraction (HFpEF) (CMS/HCC) 01/25/2025Telephone [facility] [address] [place] [address] Eveline Bowens MA surgery mfirfczuaz74/12/2025 2:15 PM ESTConsult [facility] [address] [place] [address] Mikki Rodriguez MD Symptomatic stenosis of right carotid artery without infarction (Primary Dx) 12/27/2024 - 12/27/2024 11:59 PM ESTHospital Encounter [facility] Radiology External Films [address] [place] [address] Discharge Disposition: Home or Self Care ()12/27/2024bstract [facility] [address] [place] [address] Adelaida Saha MA 11/15/2024Telephone [facility] Cardiovascular [address] [facility] [place] [address] Rosemary Calvin MA from Last 3 Months Family History Medical HistoryRelationNameCommentsCABGBrotherCoronary artery diseaseBrother RelationNameStatusCommentsBrotherFatherDeceasedMotherDeceased Social History Tobacco UseTypesPacks/DayYears UsedDateSmoking Tobacco: FormerCigarettes Smokeless Tobacco: Never Tobacco Cessation:Counseling Given: Not Answered Alcohol UseStandard Drinks/WeekCommentsNot Currently0 (1 standard drink = 0.6 oz pure alcohol)[place] Safety & EnvironmentAnswerDate RecordedFear of Current or Ex-PartnerNot on file04/08/2023Emotionally AbusedNot on file04/08/2023hysically AbusedNot on file04/08/2023Sexually AbusedNot on file04/08/2023hysically or Sexually AbusedNot on file04/08/2023Sex and Gender InformationValueDate Recorded Sex Assigned at BnneeXlou04/24/2025 6:33 PM EDTLegal FpbBxav1108/13/2021 9:43 PM EDTGender QcuugndwHpsg90/24/2025 6:33 PM EDTSexual OrientationHeterosexual or Zolhmcpy88/24/2025 6:33 PM EDT Last Filed Vital Signs Vital SignReadingTime TakenCommentsBlood Ofyjxush19/5801/25/2025 10:33 AM EST Jrvzz097701/25/2025 10:33 AM ESTTemperature--Respiratory Rate--Oxygen Saturation 97%01/25/2025 10:33 AM ESTInhaled Oxygen Concentration--Yzywkd81.4 kg (153 lb) 01/25/2025 10:33 AM DHHEkhbif796.2 cm (5' 7 )01/25/2025 10:33 AM ESTBody Mass Index23.9601/25/2025 10:33 AM EST Plan of Treatment DateTypeDepartmentCare Team (Latest Contact Info)Idmthtuslcj86/06/2026 8:30 AM ESTHospital Encounter [facility] Heart and Vascular Center Vascular Lab [address] [place] [address] Thania Cabral MD [address] [facility] [address] [facility] [place] [address] Pre-op /06/2026 10:30 AM EST - 02/20/2025 11:30 AM ESTSurgery [facility] Heart [facility] V[facility] Center Vascular Lab [address] [place] [address] Thania Cabral MD [address] [facility] [place] [address] Coronary angiographyHealth MaintenanceDue DateLast DoneCommentsDiabetes: Hemoglobin A1C1946Medicare Annual Wellness (AWV)1946Diabetes: Retinopathy Bgvydhrlg05/01/1957Depression Iowttmztr99/01/1959Diabetes: Urine Protein Zfkodihcz50/01/1966Fall Risk Qywutsyoa98/01/2012COVID-19 Vaccine ( season)6102/27/2024, 12/14/2023, 12/29/2022, Additional history existsAdult Jqfnnmx63/Zoster BqxwzwmfNiffcdmhz67/25/2022, 1Pneumococcal Vaccine: 50+ MfilzVakikpssh78/04/2025, 02/12/2016, 11/06/2014, Additional history existsInfluenza LbhyizyNhymxfuep21/12/2025, 11/11/2023, 11/12/2022, Additional history existsHIB VaccinesAged OutNo [...] Procedures Procedure NamePriorityDate/TimeAssociated DiagnosisCommentsCT TRANSFER OF OUTSIDE DKYWQMdemuap43/12/2025 12:00 AM EST from Last 3 Months [...] MemberSubscriberPlan / Payer (Effective 2005-Present)Name:Waldo Maravilla Member ID:[id number] Relation to Subscriber:SelfName:Waldo Maravilla Subscriber ID:[id number] Payer ID:[id number] Group ID:Not on file Type:Medicare Address: [address] [id number] Care Teams Team MemberRelationshipSpecialtyStart DateEnd Date Millicent Crowder NP [address] [place] [address] PCP - GeneralFamily Fojznaen41/11/25
[2025-02-14 11:08] LABS: Hematocrit 40.1 % (42.0-54.0); Hemoglobin 12.6 g/dL (14.0-18.0); Immature Granulocytes Abs Auto 0.06 10^3/uL (0.00-0.03); Immature Granulocytes Pct Auto 0.8 % (0.0-0.5); Lymphocytes Absolute Auto 1.0 10^3/uL (1.2-3.8); Mean Corpuscular HGB Conc 31.4 g/dL (29.9-35.2); Mean Corpuscular Hemoglobin 25.9 pg (25.9-34.0); Mean Corpuscular Volume 82.5 fL (80.0-94.0); Platelet Count 232 10^3/uL (150-450); Red Blood Count 4.86 10^6/uL (4.70-6.10); White Blood Count 7.2 10^3/uL (4.0-11.0)
[2025-02-14 11:23] LABS: Anion Gap 12.1; Blood Urea Nitrogen 16.0 mg/dL (7.0-18.0); Calcium 8.7 mg/dL (8.5-10.1); Carbon Dioxide 27.7 mmol/L (21.0-32.0); Chloride 105 mmol/L (98-107); Estimated GFR (African America 57 (>=60 mL/min/1.73m^2); Estimated GFR (Non-African Ame 47 (>=60 mL/min/1.73m^2); Glucose 131 mg/dL (74-106); Potassium 3.8 mmol/L (3.5-5.1); Sodium 141 mmol/L (136-145)
== END 2025-02-14 10:25 | disposition home or self-care (01) ==
LOC: LAB 10:29
PROVIDERS: PCP Student in an Organized Health Care Education/Training Program; Visit Provider Internal Medicine Interventional Cardiology
DX: Z01.818 Encounter for other preprocedural examination (principal); I50.32 Chronic diastolic (congestive) heart failure
CPT/HCPCS: 36415; 80048; 85025